=== PATIENT | female | born 1960 | race Hispanic/Latino ===

== ENCOUNTER 2023-10-22 09:12 | Emergency (ER) | payer OTHER, SELFPAY ==
[2023-10-22 09:31] VITALS: BP 136/63
--- NOTE | 2023-10-22 11:21 | ED.GENMED ---
History of Present Illness
General
Chief Complaint: Skin Problem
Time Seen by Provider: 10/22/23 10:45
Travel History
Have you had any contact with someone who has COVID-19?: No
Do you have any symptoms of coronavirus? Fever > 100 degrees, chills, cough, shortness of breath, sore throat, loss of taste or smell, muscle aches, or headache?: No
History of Present Illness
History of Present Illness:
63-year-old female with history of insulin-dependent diabetes presents to the emergency department for evaluation of redness pain and swelling associated with a lesion to the right frontal scalp. She does dye her hair recently and notes that the
symptoms began after dying her hair last week. Denies any fevers or chills. Denies any vision changes, neck pain, or posterior scalp pain. No ill contacts at home.
Past History
Past History
ED Past Medical History: Asthma, HTN, Hypercholesterolemia, IDDM, Psychiatric and Other (Cellulitis)
ED Past Surgical History: Orthopedic (right great toe amputation)
Social History
Tobacco: Non-smoker
Alcohol: None
Personal:
Living: with family
Review of Systems
Review of Systems
Allergies reviewed?: Yes
All Other Systems: ROS reviewed and negative except as documented in HPI and ROS
Phy Exam
Physical Exam
Physical Exam:
GEN: Well appearing, NAD, WDWN
HEENT: Oral mucosa moist, no scleral icterus
Cardiac: Regular rate
Lung: No respiratory distress, no tachypnea
MSK: No gross deformity or injuries
Skin: Good color, no pallor or jaundice. Grouped pustular lesions with honey colored crust to the right frontal scalp just within the hairline, no vesicular lesions
Neuro: AO x3, moves all extremities freely
Psych: Calm, cooperative
Course
Vital Signs
Initial and Last Documented VS:
Initial Vital Signs
Temp Pulse Resp BP Pulse Ox
98.3 F 84 16 136/63 100
10/22/23 09:31 10/22/23 09:31 10/22/23 09:31 10/22/23 09:31 10/22/23 09:31
Last Documented Vital Signs
Temp Pulse Resp BP Pulse Ox
98.3 F 84 16 136/63 100
10/22/23 09:31 10/22/23 09:31 10/22/23 09:31 10/22/23 09:31 10/22/23 09:31
MDM/Problems Addressed
MDM/Problems Addressed:
Likely a staph impetigo based on clinical exam. Do not suspect zoster given the localized symptoms without adjacent vesicular lesions
*Critical Care Note
Total Time (30-74mins, 75-104mins- exclusive of procedures): Not Applicable
ED Attending Note
-
Portions of this chart may have been created with voice recognition software.� Occasional wrong word or��sound alike� substitutions may have occurred due to the inherent limitations of voice recognition software.
Discharge Plan
Departure
Patient Disposition: Home (Routine Discharge)
Date of Disposition: 10/22/23
Time of Disposition: 11:22
Patient with high blood pressure during this ER visit?: No
Discharge Problem:
Impetigo, Cellulitis of scalp
Instructions: Cellulitis (Skin Infection), Adult (DC)
Prescriptions:
New
sulfamethoxazole-trimethoprim [Bactrim DS] 800-160 mg tablet
1 tab PO Q12H Qty: 14 0RF
mupirocin 2 % ointment
1 applic topical TID 7 Days Qty: 22 0RF
No Action
prednisone 5 MG tablet
5 mg PO BID Qty: 0 0RF
Jardiance 25 MG tablet
25 mg PO DAILY Qty: 0 0RF
gabapentin [Neurontin] 800 MG tablet
800 mg PO TID
gabapentin 400 MG capsule
400 mg PO TID
tizanidine 4 mg Tablet
4 mg PO HSPRN PRN (Reason: SPASMS)
lisinopril 20 mg Tablet
20 mg PO DAILY
insulin glargine [Lantus U-100 Insulin] 100 unit/mL solution
35 unit SC QPM
mupirocin 2 % ointment
1 applic topical BID
insulin aspart U-100 [Novolog FlexPen U-100 Insulin] 100 unit/mL (3 mL) insulin pen
16 unit SC AC
famotidine 20 MG tablet
20 mg PO BID
acetaminophen 325 mg Tablet
650 mg PO Q4HPRN PRN (Reason: mild pain/DOMINGO/temp> 100.4F) Qty: 0 0RF
amoxicillin-pot clavulanate 875-125 mg tablet
1 tab PO Q12H 7 Days Qty: 14 0RF
polyethylene glycol 3350 17 gram/dose powder
17 g PO DAILY Qty: 510 0RF
Referrals:
Keli Hernandez MD [Family Provider] -
Interventions
Interventions:
*Risk Screen - Suicide Last Done: 10/22/23 09:31
*General Assessment Last Done: 10/22/23 09:31
*Neglect/Abuse Screening Last Done: 10/22/23 09:31
*Nursing Disposition Last Done: 10/22/23 11:33
ED-Skin Assessment Last Done: 10/22/23 11:03
Discharge Date and Time
Discharge Date/Time: 10/22/23 11:36
== END 2023-10-22 11:36 | disposition home or self-care (01) ==
LOC: EMR 09:12
PROVIDERS: EMERGENCY PHYSICIAN Emergency Medicine; FAMILY PHYSICIAN Internal Medicine
DX: L01.00 Impetigo, unspecified (principal); L03.811 Cellulitis of head [any part, except face]; J45.909 Unspecified asthma, uncomplicated; I10 Essential (primary) hypertension; E11.9 Type 2 diabetes mellitus without complications; E78.00 Pure hypercholesterolemia, unspecified; Z79.4 Long term (current) use of insulin
CPT/HCPCS: 99282

== ENCOUNTER 2024-06-02 08:28 | Emergency (ER) | payer OTHER, SELFPAY ==
[2024-06-02] VITALS (7 sets, daily range): BP systolic 124–187; BP diastolic 55–79; BMI 26.0
[2024-06-02 09:04] LABS: Urine Albumin Negative (Neg - Trace); Urine Bilirubin Negative (Negative); Urine Character Clear (Clear); Urine Color Straw; Urine Glucose Negative (Negative); Urine Ketone Negative (Negative); Urine Leukocyte Negative (Negative); Urine Nitrite Negative (Negative); Urine Occult Blood Negative (Negative); Urine Urobilinogen Negative (Neg - 1+); Urine pH 6.5 (5.0-9.0)
--- NOTE | 2024-06-02 11:08 | ED.GENMED ---
History of Present Illness
General
Chief Complaint: Back Pain
Time Seen by Provider: 06/02/24 10:35
History of Present Illness
History of Present Illness:
Patient is a 63-year-old Yakut-speaking female with past medical history of hypertension, hyperlipidemia, anemia, type 2 diabetes mellitus, asthma, lupus, anxiety, and history of osteomyelitis of the right third toe status post partial amputation
in November 2022, here today for evaluation of approximately 3 to 4 weeks of atraumatic left-sided lower back pain. She also endorses pain along the left side of her lower abdomen and lateral side. Pain at times radiates proximally along the left
hip/thigh. She has been having difficulty with ambulation and her has been helping her. No falls or injuries. No numbness or tingling noted. No fevers. No vomiting. No central abdominal pain.
Past History
Past History
ED Past Medical History: Asthma, HTN, Hypercholesterolemia, IDDM, Psychiatric and Other (Cellulitis)
ED Past Surgical History: Orthopedic (right great toe amputation)
Social History
Tobacco: Non-smoker
Alcohol: None
Personal:
Living: with family
Review of Systems
Review of Systems
All Other Systems: ROS reviewed and negative except as documented in HPI and ROS
Phy Exam
Physical Exam
Physical Exam:
GENERAL: Alert , in no apparent distress
EYE: pupils equal and reactive
NECK: Supple, no significant adenopathy.
ENT: o/p clr, mmm.
CARDIAC: Regular rate and rhythm .
LUNGS: Clear breath sounds bilaterally, no acute respiratory distress, no wheezes/rales/rhonchi
ABDOMEN: Soft, there is mild tenderness to palpation along the left lower quadrant of the abdomen as well as the left lower side, no r/g, no cvat
NEUROLOGICAL: Alert and oriented, no focal neuro deficits
SKIN: Warm and dry, skin intact.
MUSCULOSKELETAL: No edema, well perfused. There is moderate tenderness to palpation along the anterior and lateral aspect of the left hip as well as tenderness along the left lower back, no rashes noted, no deformities, no swelling, no erythema or
overlying skin changes. There is slightly decreased range of motion of the left lower extremity without painful micromotion. Pulses 2+ throughout. Sensation intact throughout.
PSYCH: Normal and appropriate interaction.
Course
Orders/Labs/Results
Orders:
Orders
06/02/24 08:55
Urinalysis Reflex To Culture Urgent
Date Specimen was Collected: 06/02/24
Time Specimen was Collected: 08:44
06/02/24 11:12
CT Abd/pelvis W Iv Cont Urgent
Comment:
Reason For Exam: llq abd pain, side pain, back pain
0.9% Sodium Chloride 1000 ml [Nss] 1,000 ml IV BOLUS
Acetaminophen [Tylenol] 650 mg PO NOW STA
06/02/24 11:13
Lidocaine [Lidocaine 4% Patch] 1 patch TOPICAL DAILY ONE
Apply Lidocaine patch(s) to:: left lateral lower side/back
06/02/24 11:30
Complete Blood Count/With Diff Urgent
Comprehensive Metabolic Panel Urgent
06/02/24 13:28
Morphine Sulfate 4 mg IV NOW STA
06/02/24 13:51
Hip, Left 2-3 Views [CR Hip - LT w/wo Pel 2-3 Vw*] Urgent
Comment:
Reason For Exam: back/hip pain
Include a pelvis x-ray?: Yes
Lumbar Spine, 2 or 3 View [CR Lumbar Spine 2 Or 3 Views] Urgent
Comment:
Reason For Exam: back pain left side
06/02/24 14:19
Ondansetron Injectable [Zofran] 4 mg .ROUTE .STK-MED ONE
06/02/24 14:20
Ondansetron Injectable [Zofran] 4 mg IV NOW STA
Abnormal Lab Results
06/02/24
11:30
WBC 3.8 L 10^3/uL
(4.8-10.8)
Hgb 11.0 L g/dL
(12.0-16.0)
Hct 35.2 L %
(37.0-47.0)
MCH 25.4 L pg
(27.0-31.0)
MCHC 31.3 L g/dL
(33.0-37.0)
RDW 15.1 H %
(11.5-14.5)
MPV 11.6 H fL
(7.4-10.4)
BUN 20 H mg/dl
(7-17)
Creatinine 0.4 L mg/dL
(0.6-1.0)
Glucose 155 H mg/dl
(70-99)
06/02/24 11:30
06/02/24 11:30
Vital Signs
Initial and Last Documented VS:
Initial Vital Signs
Temp Pulse Resp BP Pulse Ox
98.3 F 82 16 168/55 98
06/02/24 08:36 06/02/24 08:36 06/02/24 08:36 06/02/24 08:36 06/02/24 08:36
Last Documented Vital Signs
Temp Pulse Resp BP Pulse Ox
98.3 F 76 16 159/68 100
06/02/24 08:36 06/02/24 11:36 06/02/24 08:36 06/02/24 14:00 06/02/24 14:00
MDM/Problems Addressed
Differential Diagnosis Includes:
Patient is a 63-year-old Yakut-speaking female with past medical history of hypertension, hyperlipidemia, anemia, type 2 diabetes mellitus, asthma, lupus, anxiety, and history of osteomyelitis of the right third toe status post partial amputation
in November 2022, here today for evaluation of approximately 3 to 4 weeks of atraumatic left-sided lower back pain. Overall, patient appears very well. Vitals remarkable for an elevated blood pressure. Physical examination described above. Will
begin with screening labs, urinalysis, and CT scan of the abdomen and pelvis with IV contrast. Will provide Tylenol and topical lidocaine patches.
06/02/2024 1627: Screening labs grossly within normal limits/consistent with the patient's baseline. There is mild leukopenia/anemia, elevated BUN, and an elevated glucose. Urinalysis negative. A CT scan of the abdomen and pelvis with IV contrast
was performed which reveals no CT evidence for any acute inflammatory process in the abdomen or pelvis. X-rays were obtained of the left hip lumbar spine which revealed no radiographic evidence for any acute osseous abnormality. Patient made aware
of findings. At this time, patient appears very comfortable and well. She is able to ambulate appropriately. Symptoms/findings may be secondary to a muscular etiology such as a lumbar strain. No emergent findings identified. Will recommend
Tylenol as patient reports she is not able to take ibuprofen secondary to this upsetting her stomach. Will add a muscle relaxer with cyclobenzaprine. Recommend supportive measures and close follow-up with orthopedics. Patient voiced understanding
of the above plan. She appears well and stable for discharge. All questions answered.
*certified court/medical interpreter #[id number] Chen used*
*Critical Care Note
Total Time (30-74mins, 75-104mins- exclusive of procedures): Not Applicable
ED Attending Note
-
Portions of this chart may have been created with voice recognition software.� Occasional wrong word or��sound alike� substitutions may have occurred due to the inherent limitations of voice recognition software.
Discharge Plan
Departure
Patient Disposition: Home (Routine Discharge)
Date of Disposition: 06/02/24
Time of Disposition: 16:14
Patient with high blood pressure during this ER visit?: Yes
Condition: Fair
Covid-19: Not Applicable
Discharge Problem:
Acute left-sided low back pain
Instructions: Low Back Pain (DC)
Prescriptions:
New
cyclobenzaprine 5 mg tablet
5 mg PO TID PRN (Reason: muscle spasm) 3 Days Qty: 9 0RF
Rx Instructions:
May cause drowsiness. No driving/operating machinery/drinking alcohol.
No Action
prednisone 5 MG tablet
5 mg PO BID Qty: 0 0RF
Jardiance 25 MG tablet
25 mg PO DAILY Qty: 0 0RF
gabapentin [Neurontin] 800 MG tablet
800 mg PO TID
gabapentin 400 MG capsule
400 mg PO TID
tizanidine 4 mg Tablet
4 mg PO HSPRN PRN (Reason: SPASMS)
lisinopril 20 mg Tablet
20 mg PO DAILY
insulin glargine [Lantus U-100 Insulin] 100 unit/mL solution
35 unit SC QPM
mupirocin 2 % ointment
1 applic topical BID
insulin aspart U-100 [Novolog FlexPen U-100 Insulin] 100 unit/mL (3 mL) insulin pen
16 unit SC AC
famotidine 20 MG tablet
20 mg PO BID
acetaminophen 325 mg Tablet
650 mg PO Q4HPRN PRN (Reason: mild pain/DOMINGO/temp> 100.4F) Qty: 0 0RF
amoxicillin-pot clavulanate 875-125 mg tablet
1 tab PO Q12H 7 Days Qty: 14 0RF
polyethylene glycol 3350 17 gram/dose powder
17 g PO DAILY Qty: 510 0RF
sulfamethoxazole-trimethoprim [Bactrim DS] 800-160 mg tablet
1 tab PO Q12H Qty: 14 0RF
mupirocin 2 % ointment
1 applic topical TID 7 Days Qty: 22 0RF
Referrals:
Keli Hernandez MD [Family Provider] - Follow up in 2-3 days
Markus Wang MD [Active] - Follow up in 10 days
Activity Restrictions/Additional Instructions:
You were seen today for evaluation of left-sided low back pain.
We obtained blood work which is grossly consistent with your baseline.
We obtained a CAT scan of your abdomen and pelvis as well as x-rays of your left hip and lower back which reveal no acute findings.
Rest. Avoid heavy lifting. Take [id number] Tylenol (acetaminophen) as directed as needed for pain. Take the muscle relaxer cyclobenzaprine as directed as needed. This may cause drowsiness. No driving or drinking alcohol with the
medication.
Follow-up with your doctor within the next 2 to 3 days for close reevaluation.
Return for any new, worsening, or concerning symptoms.
Lo atendieron hoy para patel evaluaci�n de dolor lumbar en el lado molly.
Obtuvimos an�lisis de judie que son muy consistentes con [place]inson l�matt de base.
Obtuvimos patel tomograf�a computarizada de tomlinson abdomen y pelvis, as� dia radiograf�as de tomlinson cadera izquierda y espalda baja que no revelan hallazgos agudos.
Descansar. Evite levantar objetos pesados. [place] Tylenol (acetaminof�n) de venta sravanthi seg�n las indicaciones, seg�n sea necesario para el dolor. [place] el relajante muscular ciclobenzaprina seg�n las indicaciones seg�n sea necesario. [place] puede
provocar somnolencia. No conducir ni beber alcohol con el medicamento.
Vira un seguimiento con tomlinson m�dico dentro de los pr�ximos 2 a 3 d�as para patel reevaluaci�n minuciosa.
Regrese ante cualquier s�ntoma nuevo, que empeore o que le preocupe.
Interventions
Interventions:
*Risk Screen - Suicide Last Done: 06/02/24 08:39
*General Assessment Last Done: 06/02/24 08:39
*Neglect/Abuse Screening Last Done: 06/02/24 08:39
ED- Fall Risk Assessment Last Done: 06/02/24 10:39
ED-Musculoskeletal Assessment Last Done: 06/02/24 10:39
Discharge Date and Time
Print Language: BELGIAN
[2024-06-02] MEDS: TYLENOL 650 MG PO (11:18)
[2024-06-02] MEDS: LIDOCAINE 4% PATCH 1 PATCH TOPICAL (11:19)
[2024-06-02] MEDS: NSS 1000 IV (11:31)
[2024-06-02 11:45] LABS: % Basophils 0.5 % (0-2); % Eosinophils 1.9 % (0-6); % Immature Granulocytes 0.3 % (0-0.5); % Lymphocytes 33.5 % (20.5-51.1); % Monocytes 6.4 % (1.7-9.3); % Neutrophils 57.4 % (42.2-75.2); Absolute Eosinophils 0.1 10^3/uL (0-0.7); Absolute Lymphocytes 1.3 10^3/uL (1.2-3.4); Absolute Monocytes 0.2 10^3/uL (0.1-0.6); Absolute Neutrophils 2.2 10^3/uL (1.4-6.5); Hematocrit 35.2 % (37.0-47.0); Mean Corp Hgb Conc. 31.3 g/dL (33.0-37.0); Mean Corpuscular Hgb 25.4 pg (27.0-31.0); Mean Corpuscular Volume 81.3 fL (81.0-99.0); Mean Platelet Volume 11.6 fL (7.4-10.4); Nucleated Red Blood Cells % 0 %; Platelet Count 212 10^3/uL (130-400); Red Blood Cell Count 4.33 10^6/uL (4.20-5.40); Red Cell Dist. Width 15.1 % (11.5-14.5); White Blood Cell Count 3.8 10^3/uL (4.8-10.8)
[2024-06-02 12:05] LABS: ALT (SGPT) 25 U/L (0-35); AST (SGOT) 28 U/L (14-36); Albumin 4.5 g/dl (3.5-5.0); Alkaline Phosphatase 75 U/L (38-126); Blood Urea Nitrogen 20 mg/dl (7-17); Calcium 9.5 mg/dl (8.4-10.2); Carbon Dioxide 27 mmol/L (22-30); Chloride 105 mmol/L (98-107); Estimated Creatinine Clearance 79 ml/min; Glucose 155 mg/dl (70-99); Sodium 145 mmol/L (135-145); Total Bilirubin 0.3 mg/dl (0.2-1.3); eGFR > 60.00
[2024-06-02] MEDS: MORPHINE SULFATE 4 MG IV (13:32)
[2024-06-02] MEDS: ZOFRAN 4 MG IV (14:21)
== END 2024-06-02 16:38 | disposition home or self-care (01) ==
LOC: EMR 08:28
PROVIDERS: Emergency Medicine; Physician Assistant; EMERGENCY PHYSICIAN Emergency Medicine; FAMILY PHYSICIAN Internal Medicine
DX: M54.50 Low back pain, unspecified (principal); I10 Essential (primary) hypertension; E78.00 Pure hypercholesterolemia, unspecified; E11.9 Type 2 diabetes mellitus without complications; D64.9 Anemia, unspecified; J45.909 Unspecified asthma, uncomplicated; M32.9 Systemic lupus erythematosus, unspecified; F41.9 Anxiety disorder, unspecified
CPT/HCPCS: 99284; 96374; 96375; 96361; 72100; 73502; 74177; 80053; 81003; 85025; Q9967

== ENCOUNTER → 2024-06-27 10:33 | Outpatient (REF) | payer OTHER, SELFPAY | LOC: DHVS 10:33 | PROVIDERS: ATTENDING PHYSICIAN Surgery Vascular Surgery; FAMILY PHYSICIAN Internal Medicine | DX: I73.9 Peripheral vascular disease, unspecified (principal) | CPT/HCPCS: 93922; 93925 ==

== ENCOUNTER 2024-08-20 12:58 | Inpatient (IN) | payer OTHER, SELFPAY ==
[2024-08-20] VITALS (12 sets, daily range): BP systolic 97–123; BP diastolic 40–68; BMI 26.7; BMI 28.0
[2024-08-20 09:02] LABS: % Basophils 0.3 % (0-2); % Eosinophils 0.1 % (0-6); % Immature Granulocytes 0.6 % (0-0.5); % Lymphocytes 19.8 % (20.5-51.1); % Monocytes 9.4 % (1.7-9.3); % Neutrophils 69.8 % (42.2-75.2); Absolute Lymphocytes 1.4 10^3/uL (1.2-3.4); Absolute Monocytes 0.7 10^3/uL (0.1-0.6); Hematocrit 34.3 % (37.0-47.0); Hemoglobin 10.8 g/dL (12.0-16.0); Mean Corp Hgb Conc. 31.5 g/dL (33.0-37.0); Mean Corpuscular Hgb 25.7 pg (27.0-31.0); Mean Corpuscular Volume 81.5 fL (81.0-99.0); Nucleated Red Blood Cells % 0 %; Platelet Count 194 10^3/uL (130-400); Red Blood Cell Count 4.21 10^6/uL (4.20-5.40); Red Cell Dist. Width 14.5 % (11.5-14.5); White Blood Cell Count 7.2 10^3/uL (4.8-10.8)
[2024-08-20 09:15] LABS: ALT (SGPT) 64 U/L (0-35); AST (SGOT) 78 U/L (14-36); Albumin 3.6 g/dl (3.5-5.0); Alkaline Phosphatase 79 U/L (38-126); Blood Urea Nitrogen 43 mg/dl (7-17); Calcium 8.2 mg/dl (8.4-10.2); Carbon Dioxide 24 mmol/L (22-30); Chloride 102 mmol/L (98-107); Glucose 213 mg/dl (70-99); Lipase 947 U/L (23-300); Sodium 136 mmol/L (135-145); Total Bilirubin 0.5 mg/dl (0.2-1.3); Total Protein 7.1 g/dl (6.3-8.2); eGFR > 60.00
--- NOTE | 2024-08-20 09:54 | ED.GENMED ---
History of Present Illness
General
Chief Complaint: Chest Pain
Source: patient and family
Exam Limitations: none
Time Seen by Provider: 08/20/24 09:26
History of Present Illness
History of Present Illness:
63-year-old female with a history of lupus and insulin-dependent diabetes, peripheral vascular disease, diabetic neuropathy, chronic steroid use and hypertension who presents with left-sided chest pain as well as epigastric and left-sided abdominal
pain. Symptoms have been ongoing for 4 days. She was hoping symptoms will get better but they have not. states that she has not eaten in several days. No fevers. Is nauseous. Did vomit 2 days ago but nothing today. The chest pain on
my evaluation is not there. She states she only has chest pain if she rolls to her left side. No fevers. No back pain. Pain in her abdomen is epigastric and left upper quadrant. She has not been taking her insulin because she has not been
eating. She is not a drinker. She smoked many years ago but only for like 2 years.
Past History
Past History
ED Past Medical History: Asthma, HTN, Hypercholesterolemia, IDDM, Psychiatric and Other (Cellulitis, diabetic neuropathy, peripheral vascular disease, lupus, chronic steroid use)
ED Past Surgical History: Orthopedic (right great toe amputation)
Social History
Tobacco: Non-smoker
Alcohol: None
Personal:
Living: with family
Phy Exam
Physical Exam
Physical Exam:
CONSTITUTIONAL Patient alert and oriented to person, place and time. Well-appearing. Vital signs reviewed.
HEAD atraumatic, normocephalic.
EYES eyelids normal to inspection, Extraocular muscles intact, Conjunctiva normal, Sclera normal.
NECK normal range of motion, Trachea midline, no jugular venous distention.
RESPIRATORY CHEST No respiratory distress noted, Chest expansion equal, Bilateral breath sounds clear.
CARDIOVASCULAR regular rate and rhythm, Heart sounds normal.
ABDOMEN moderate to severe epigastric and left upper quadrant tenderness
BACK normal inspection, no obvious deformities
UPPER EXTREMITY range of motion normal, Motor strength normal, no cyanosis, no edema.
LOWER EXTREMITY range of motion normal, Motor strength normal, no cyanosis, no edema.
NEURO Speech normal, No focal motor deficits, [place] coma scale 15, Memory normal, Cranial Nerves intact to screening exam.
SKIN skin warm, dry, and normal in color.
Scores
Heart Score for Chest Pain Patients
STEMI patient?: No
History: Slightly or Non-Suspicious
ECG: Nonspecific Repolarization
Age: >45 - <65 years
Risk Factors: 1 or 2 Risk Factors
Troponin: >/= 3 x Normal Limit
Heart Score for Chest Pain Patients: 5
Heart Score Risk: 20.3% MACE over next 6 weeks
Course
Orders/Labs/Results
Orders:
Orders
08/20/24 08:15
EKG [Electrocardiogram (*1)] Urgent
Reason for Study: Chest Pain
EKG- Treatment ONCE
08/20/24 08:49
Complete Blood Count/With Diff Urgent
Comprehensive Metabolic Panel Urgent
Erythrocyte Sed Rate Urgent
Comment: ADD ON
Lipase Urgent
Troponin I Urgent
08/20/24 09:43
Add On- LAB Urgent
Tests Added?: ESR, CRP
08/20/24 09:44
CT Chest/abd/pel W Iv Cont Urgent
Comment:
Reason For Exam: L CP, L and epigastric abd pain, lupus hx
08/20/24 Lunch
NPO
Allow oral meds: Yes
Allow clear liquids: No
08/20/24 11:01
Heparin 4,000 units IV NOW STA
Pharmacy Request to Place See Dose Instructions PO NOW STA
Discontinue all Active Warfarin orders?: Yes
Nursing to Place Non Medication Order As Directed
Physician Order: PTT 6 hours after initial start of Heparin infusion
Above order entered?: Yes
08/20/24 11:09
PTT Urgent
Comment: Obtain baseline before beginning heparin infusion if not already collected
08/20/24 11:15
Heparin 70577 Units/250 ml 25,000 units in 250 ml IV PER PROTOCOL
Weight to be used for heparin protocol in kilograms (kg):: 68.4
Protocol:: Cardiac Tx/Acute Coronary
PTT Goal Range to be used:: PTT 73 to 111 seconds
Order type:: Initial
INITIAL Infusion Dose (UNITS/KG/hr) & then follow protocol:: 12 units/kg/hr
Infusion Dose in UNITS/hr & then follow protocol (UNITS/hr):: 800
INFUSION RATE in mL/hr & then follow protocol (mL/hr):: 8
PTT less than or equal to 64 seconds:: Increase rate by 200 units/hr (+ 2 mL/hr)
PTT 64.1 to 72.9 seconds:: Increase rate by 100 units/hr (+ 1 mL/hr)
PTT 73 to 111 seconds:: Target Range. No change in rate.
PTT 111.1 to 130.9 seconds:: Decrease rate by 100 units/hr (- 1 mL/hr)
PTT 131 to 199.9 seconds:: HOLD for 1 hr. Then decrease rate by 200 units/hr (- 2 mL/hr)
PTT greater than or equal to 200 seconds:: HOLD for 2 hrs & Notify Provider. Then decrease by 200 units/hr (-
2 mL/hr)
Lab follow-up:: Each change, PTT q6h until 2 consecutive are therapeutic. Then PTT
daily.
08/20/24 11:44
C-Reactive Protein Urgent
Comment: ADD ON
08/20/24 12:[address] See Dose Instructions IV DIRECTED
08/20/24 12:41
Admit/Transfer Patient As Directed
Co-Sign Provider:
Level of Care: Inpatient admission
Assign to:: IVU
Physician / Group: hospitalist-Cristiane
Diagnosis: chest pain
Reason for Hospitalization: IV heparin, serial EKG, troponin, cards eval
Expected length of stay greater than two midnights?: Yes
ELOS- Estimated Length of Stay in days: 4
I certify the patient meets the requirements for IP care: Yes
PRN Pain Medication Management As Directed
May give lesser potent ordered pain med per pt: Yes
preference::
Protocol:: Medication orders for pain may be administered in a
manner that supports deferring to patient preference
when the pt is:
- Requesting an ordered lesser potent pain medication.
Least to most potent pain medications are defined
as: acetaminophen < NSAID < tramadol < opioids
(morphine, oxycodone, hydromorphone).
- Requesting a lesser dose of the same medication IF
ORDERED.
- Requesting a less intrusive route of administration
if both routes are prescribed by the provider (PO <
IV).
08/20/24 12:44
Code Status As Directed
Resuscitation Status: Full Code
08/20/24 14:03
Electrocardiogram (*1) Q3H
Reason for Study: Chest Pain
Comment: at admission and Q3H for total of 3, to be done with each troponin
Dextrose 50%-Water [Dextrose 50% Syringe] 12.5 grams IV [id number] PRN
Glucagon [GlucaGen] 1 mg IM PRN PRN
Pantoprazole [Protonix IV] 40 mg IV DAILY
08/20/24 14:03
Echo 2D MMode Color/Doppler Routine
Reason for Study: chest pain
CARDIOLOGY CONSULT Routine
Consulting Provider: Ilir Metzger
Was physician already notified: Yes
Heparin Protocol- PTT Orders As Directed
PTT per Heparin protocol: -Obtain CBC and baseline PTT - if not already collected.
-Obtain PTT 6 hours from start of infusion. Then, every 6 hours until 2 consecutive
PTT's are therapeutic. Then, PTT Daily.
-With each rate change, obtain PTT every 6 hours until 2 consecutive PTT's are
therapeutic. Then, PTT Daily.
Activity As Directed
Activity Level: As Tolerated
Bedside Glucose Monitoring As Directed
Frequency: AC&HS
Additional Instructions:: Change to q6h if pt on TPN, tube feeding or not eating
INT (Intravenous Needle Therapy) As Directed
Comment: maintain peripheral IV access
Intake/ Output As Directed
Frequency: Per unit guidelines
Notify MD As Directed
Notify physician if: PTT is greater than or equal to 200.
Vital Signs As Directed
Frequency: q4h
Weight As Directed
Frequency: Daily
Ot Eval And Treat Routine
Pt Eval And Treat Routine
Activity Level: As Tolerated
08/20/24 14:54
Glycohemoglobin (HgbA1c) Routine
08/20/24 16:00
Gabapentin [Neurontin] 400 mg PO TID
Gabapentin [Neurontin] 800 mg PO TID
08/20/24 16:14
PTT Routine
08/20/24 16:30
Insulin Aspart Corrective Low [Novolog Flexpen-Low Resistance] See Protocol SC AC
Insulin Aspart Pen [Novolog Flexpen] 16 units SC AC
08/20/24 17:03
Electrocardiogram (*1) Q3H
Reason for Study: Chest Pain
Comment: at admission and Q3H for total of 3, to be done with each troponin
08/20/24 18:00
insulin glargine [Lantus U-100 Insulin] 35 unit SC QPM
08/20/24 20:00
Prednisone [Deltasone] 5 mg PO BID
08/20/24 20:03
Electrocardiogram (*1) Q3H
Reason for Study: Chest Pain
Comment: at admission and Q3H for total of 3, to be done with each troponin
Troponin I Q3H
Comment: at admit & Q3H for 3 total including ED draws, obtain ECG with each level
08/20/24 23:03
Electrocardiogram (*1) Q3H
Reason for Study: Chest Pain
Comment: at admission and Q3H for total of 3, to be done with each troponin
08/21/24 06:00
Basic Metabolic Panel IN AM
Cardiovascular Evaluation IN AM
Complete Blood Count/No Diff IN AM
Comprehensive Metabolic Panel IN AM
Glycohemoglobin (HgbA1c) IN AM
08/21/24 08:00
Dapagliflozin [Farxiga] 10 mg PO DAILY
Lisinopril [Zestril] 20 mg PO DAILY
08/22/24 06:00
Complete Blood Count/No Diff Q2D
Comment: notify provider: Platelet count < 130,000 or decrease by 50% from baseline
08/24/24 06:00
Complete Blood Count/No Diff Q2D
Comment: notify provider: Platelet count < 130,000 or decrease by 50% from baseline
08/26/24 06:00
Complete Blood Count/No Diff Q2D
Comment: notify provider: Platelet count < 130,000 or decrease by 50% from baseline
08/28/24 06:00
Complete Blood Count/No Diff Q2D
Comment: notify provider: Platelet count < 130,000 or decrease by 50% from baseline
08/30/24 06:00
Complete Blood Count/No Diff Q2D
Comment: notify provider: Platelet count < 130,000 or decrease by 50% from baseline
09/01/24 06:00
Complete Blood Count/No Diff Q2D
Comment: notify provider: Platelet count < 130,000 or decrease by 50% from baseline
09/03/24 06:00
Complete Blood Count/No Diff Q2D
Comment: notify provider: Platelet count < 130,000 or decrease by 50% from baseline
09/05/24 06:00
Complete Blood Count/No Diff Q2D
Comment: notify provider: Platelet count < 130,000 or decrease by 50% from baseline
Abnormal Lab Results
08/20/24 08/20/24
08:49 11:44
Hgb 10.8 L g/dL
(12.0-16.0)
Hct 34.3 L %
(37.0-47.0)
MCH 25.7 L pg
(27.0-31.0)
MCHC 31.5 L g/dL
(33.0-37.0)
MPV 13.0 H fL
(7.4-10.4)
Absolute Monos (auto) 0.7 H 10^3/uL
(0.1-0.6)
Immature Gran % 0.6 H %
(0-0.5)
Lymphocytes % 19.8 L %
(20.5-51.1)
Monocytes % 9.4 H %
(1.7-9.3)
ESR 94 H mm/hour
(0-20)
BUN 43 H mg/dl
(7-17)
Glucose 213 H mg/dl
(70-99)
Calcium 8.2 L mg/dl
(8.4-10.2)
AST 78 H U/L
(14-36)
ALT 64 H U/L
(0-35)
Troponin I 16.400 H* ng/ml
C-Reactive Protein 143.80 H mg/L
(0.0-10.00)
Lipase 947 H U/L
(23-300)
08/20/24 08:49
08/20/24 08:49
Vital Signs
Initial and Last Documented VS:
Initial Vital Signs
Temp Pulse Resp BP Pulse Ox
98.4 F 86 18 114/57 98
08/20/24 08:30 08/20/24 08:30 08/20/24 08:30 08/20/24 08:30 08/20/24 08:30
Last Documented Vital Signs
Temp Pulse Resp BP Pulse Ox
99.7 F 94 16 111/58 97
08/20/24 15:07 08/20/24 16:15 08/20/24 14:55 08/20/24 14:55 08/20/24 14:55
MDM/Problems Addressed
Differential Diagnosis Includes:
Myocarditis, pericarditis, MD, pancreatitis, pneumothorax, pulmonary embolism, electrolyte imbalance, lupus exacerbation
MDM/Problems Addressed:
NSTEMI versus myocarditis, elevated troponin, abdominal pain, mild pancreatitis, hyperglycemia
*Radiology
Radiology exam reviewed: preliminary read by ED provider (No free air.)
*Pulse Oximetry
Patient hypoxic: no
*EKG
Interpreted by ED Provider?: Yes
Interpretation: abnormal
Rate: normal
Rhythm: sinus
[place]: left axis deviation
Interval: normal interval
Ischemia: non-specific ST changes
*Hospital Attendant Interpretation
Rate: normal
Interpretation: normal
Rhythm: sinus
*Critical Care Note
Total Time (30-74mins, 75-104mins- exclusive of procedures): 35 minutes
Data Reviewed
Review of Other/Old Records Reveals: Labs (Prior labs reviewed), Testing (EKG reviewed from June 2023) and Discharge Summary (Discharge summary reviewed from November 2022)
Source: patient and spouse
Further Testing Considered But Not Given:
Consider PE study but no hypoxia, no pleuritic pain, no tachypnea.
Patient Management
Discussion with other providers: Campaign Worker (Case discussed Dr. Metzger at 11:15 AM)
Escalation/DeEscalation of care consider admission/obs:
63-year-old female presents with pain in the left chest but only when laying on the left side. Interestingly on my examination while sitting in a normal position she has no pain. She does report upper abdominal pain as well. Lipase noted to be
mildly elevated. CT negative. Troponin markedly elevated. Question myocarditis versus ACS. For now we will heparinize. She has an allergy to aspirin. Case discussed with cardiology who will evaluate. Symptoms have been ongoing for about 4
days and remained stable. Likely will benefit from echocardiogram. She is on chronic prednisone and consider dose of steroids but will await medical evaluation by internal medicine
ED Attending Note
-
Portions of this chart may have been created with voice recognition software.� Occasional wrong word or��sound alike� substitutions may have occurred due to the inherent limitations of voice recognition software.
Discharge Plan
Departure
Patient Disposition: Admit
Date of Disposition: 08/20/24
Time of Disposition: 11:08
Admit to: Telemetry
Presentation/result/management discussed w/ accepting MD/DO: Hospitalist
Discharge Problem:
Acute non-ST elevation myocardial infarction (NSTEMI), Rule out myocarditis
Interventions
Interventions:
*Risk Screen - Suicide Last Done: 08/20/24 08:30
*General Assessment Last Done: 08/20/24 08:30
*Neglect/Abuse Screening Last Done: 08/20/24 09:35
*ED COVID-19 Vaccine History Last Done: 08/20/24 15:44
*Nursing Disposition Last Done: 08/20/24 14:29
ED- Cardiac Assessment Last Done: 08/20/24 09:35
Discharge Date and Time
Discharge Date/Time: 08/20/24 14:32
[2024-08-20 10:27] LABS: Erythrocyte Sed Rate 94 mm/hour (0-20)
[2024-08-20 11:28] LABS: APTT 29.4 Sec (23.4-35.0)
[2024-08-20] MEDS: HEPARIN 4000 UNITS IV (11:49)
[2024-08-20] MEDS: HEPARIN 25000 UNITS/250 ML IV (11:50)
--- NOTE | 2024-08-20 12:52 | HPS.HSE ---
Family Physician
-
Family Physician: Keli Hernandez
Chief Complaint
-
chest pain
History of Present Illness
Patient is a 63-year-old [place]-speaking female with a past medical history of type 2 diabetes mellitus insulin requiring, systemic lupus erythematosus, and essential hypertension who comes in complaining of chest pain, stomach pain, and headache
starting 4 days ago. She describes the chest pain as sharp, worse with lying on her left side, lying flat and moving forward do not exacerbate the pain and in fact relieve it. She denies any fevers or chills. She denies any jaw pain or left arm
pain. She describes the abdominal pain is burning. She is not short of breath but states that it is a sharp pain when she takes a deep breath then. She has associated nausea and is unclear about vomiting. She denies any constipation or diarrhea.
Her who accompanies her stated that she had a previous episode of this a few months ago and was given 'a medication 'and she was improved.
Of note, patient states that she had an infected toe on her right foot 3 weeks ago for which she was prescribed antibiotics. Both her and her do not know the name of the antibiotics. Her states that she is not yet finished with
that. She did see the cashier or checker stock clerk for this.
Workup in the emergency room finds her to have a troponin of 16 but an essentially unremarkable EKG. White blood cell count is normal. Both sedimentation rate and C-reactive protein are markedly elevated. Her lipase is also mildly elevated as
well.
Based on this information, patient will be admitted.
Medical History
Past Medical History
Past Medical History: Reports Other
Additional Past Medical History:
Type 2 diabetes mellitus insulin requiring
Systemic lupus erythematosus
Essential hypertension
Past Surgical History: Reports None
Social History
Tobacco: Former Smoker (Quit years ago)
Alcohol: None
Drug: None
Personal:
Living: With Family
Family History
Family History: Other (Mother of diabetes and heart related issues)
Allergies / Home Medications
Allergies reflects when Allergies were last updated in [facility].
Home Medications with original date entered in [facility]
Allergy/Medication List:
Not performed
I did review what medications I did have available with the patient's who confirmed some of the medications which I did order.
If medication reconciliation has not been performed, why?: Other (Language barrier)
Review of Systems
-
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
Constitutional: Denies Fever or Chills
EENT: Reports No Symptoms
Respiratory: Denies Trouble Breathing
Cardiac: Reports Chest Pain (Sharp in nature, worse with lying on the left side, hurts to take a deep breath then, no jaw or left arm pain)
Abdomen/GI: Reports Abdominal Pain (Burning in nature, hurts with lying on the left side) and Nausea; Denies Diarrhea or Constipated
: Reports No Symptoms
Musculoskeletal: Reports No Symptoms
Skin: Reports Other (Infected right second toe)
Neurological: Reports Headache
Endocrine: Reports No Symptoms
Hematologic/Lymphatic: Reports No Symptoms
Psych: Reports No Symptoms
Physical Exam
Vital Signs
Vital Signs
Temp Pulse Resp BP Pulse Ox
99.2 F 94 27 97/40 94
08/20/24 12:19 08/20/24 12:30 08/20/24 12:30 08/20/24 12:00 08/20/24 12:30
Physical Exam
General: Well Developed and Well Nourished; No Comfortable (Uncomfortable appearing)
HEENT: NormoCephalic and Anicteric; No Oxygen
Respiratory: Crackles (At bases bilaterally)
Cardiac: S1/S2 and Regular Rhythm; No Murmur or Rub
GI: Soft, Non Distended, Normal Bowel Sounds and Tender (To palpation left upper quadrant)
Musculoskeletal: No Clubbing, No Cyanosis, No Edema and Other (Right great toe amputated, right second toe with scabbed area appears to be pressure ulcer potentially no oozing noted no redness noted)
Skin: Other (No signs of blisters or rashes along left chest or upper abdomen)
Neuro: Awake and Alert
Psych: Calm
Laboratory Results
-
08/20/24 08:49
08/20/24 08:49
Laboratory Results
APTT 29.4 Sec (23.4-35.0) 08/20/24 11:09
Total Bilirubin 0.5 mg/dl (0.2-1.3) 08/20/24 08:49
AST 78 U/L (14-36) H 08/20/24 08:49
ALT 64 U/L (0-35) H 08/20/24 08:49
Alkaline Phosphatase 79 U/L (38-126) 08/20/24 08:49
Troponin I 16.400 ng/ml H* 08/20/24 08:49
Lipase 947 U/L (23-300) H 08/20/24 08:49
Impression/Plan
-
Patient is a 63-year-old female
Chest pain--multiple etiologies exist including ischemia (less likely although troponin is 16 but description is not typical), pericarditis/myocarditis (description of pain is typical but location is not, however sed rate and CRP are elevated),
endocarditis is also possible as patient has been on antibiotics for approximately 3 weeks due to an infected second toe for which she has seen the cashier or checker stock clerk for (however, white count normal, no fevers or chills, no other infectious signs),
pulmonary embolism also possible with right heart strain as cause of elevated troponin but no risk factors and not hypoxic (CT scan was done without contrast)--admit to IVU--trend troponin and EKG, consult cardiology--check echocardiogram--check
blood cultures--follow inflammatory markers--if patient becomes hypotensive, would start stress dose steroids--would repeat CT PE study tomorrow--continue IV heparin for now
Abdominal pain--describes as burning in nature so reflux certainly a possibility, despite mildly elevated lipase doubt acute pancreatitis--follow for now
Systemic lupus erythematosus --not followed by rheumatology--on prednisone 5 mg twice daily--May need rheumatology input--May need stress dose steroids
Type 2 diabetes mellitus--continue insulin with basal bolus dosing and sliding scale coverage, check hemoglobin A1c
Essential hypertension--continue lisinopril--patient states that she also takes metoprolol dose unknown 1 tablet at nighttime (?Toprol XL)--continue meds as able
DVT prophylaxis--already on IV heparin
CODE STATUS--full code
--- NOTE | 2024-08-20 14:36 | CON.CAR ---
Addendum entered and electronically signed by Ilir Metzger MD 08/20/24 15:23:
Note was prematurely signed off before impression and plan were added to the note. See immediately below for my impression and plan.
Impression:
Admitted for chest pain x 4 days
Acute abdominal pain
Acute headache
Troponin of 16
Elevated CRP
Type 2 diabetes
Peripheral vascular disease
Prior podiatric interventions
History of systemic lupus erythematosus
Essential hypertension
Recommendations:
Discussed with Dr. Sauer and I agree with her assessment that the troponin elevation could be multifactorial. May be related to myocarditis�pericarditis or even related to a systemic lupus flare
-Trend troponin
-Check echocardiogram
-Agree with CT scan of chest with IV contrast tomorrow
-I have no objection to heparinization for at least 48 hours
-Reasonable to consider ischemic evaluation during this hospitalization and given her advanced diabetes it would be reasonable to perform a left heart catheterization during this hospitalization
-Timing of left heart catheterization would be determined by the CT scan of chest and echocardiogram tomorrow and troponin trend
-Maintain telemetry
-We will follow with you. Discussed with primary team.
Original Note:
Consultation
Consultation Request
Date/Time Consultation Requested: 08/20/2024
Date/Time Consultation Performed: 08/20/2024
Requesting Provider: Hospitalist
Performing Provider: Domenica
Reason for Consultation: Chest pain for 4 days and positive troponin
Medical History
-
Chief Complaint: Chest pain for 4 days and positive troponin
History of Present Illness:
63-year-old female Gibraltarian-speaking who is a prior history of significant diabetic neuropathy, peripheral arterial disease, who presents with 4 days of chest pain and a troponin of 16. She also has multiple medical problems which are confounding.
My Gibraltarian is limited although we will have a reasonable conversation in Gibraltarian and her partner speaks some Kosovan.
Past medical history of type 2 diabetes mellitus insulin requiring, systemic lupus erythematosus, and essential hypertension who comes in complaining of chest pain, stomach pain, and headache starting 4 days ago. She describes the chest pain as
sharp, worse with lying on her left side and flat and better when sitting up. She has a markedly elevated C-reactive protein. Her troponins notable for 16. She denies any fevers or chills. She denies any jaw pain or left arm pain.
She has a history of diabetes and distal toe infection managed with vascular and podiatry.
Past Medical History
Past Medical History: HTN and NIDDM
Past Surgical History: Other (Prior vascular and podiatric surgery)
Social History
Tobacco: Former Smoker
Alcohol: None
Drug: None
Personal: Other
Living: With Family
Employment: Other
Family History
Family History: Reviewed & Not Pertinent
Allergies / Home Medications
Allergy/AdvReac Type Severity Reaction Status Date / Time
aspirin Allergy Hives Verified 08/20/24 08:34
�Medication �Instructions �Recorded �Confirmed �Type
empagliflozin 25 mg tablet 25 mg PO DAILY Diabetes ##0 05/03/20 08/20/24 Rx
(Jardiance)
gabapentin 400 mg capsule 400 mg PO TID take with 800mg 05/09/21 08/20/24 History
gabapentin 800 mg tablet 800 mg PO TID take with 400mg 05/09/21 08/20/24 History
(Neurontin)
insulin aspart U-100 100 unit/mL 35 unit SC AC Diabetes 11/27/22 08/20/24 History
(3 mL) subcutaneous pen (Novolog
FlexPen U-100 Insulin aspart)
insulin glargine 100 unit/mL 45 unit SC QPM Diabetes 11/27/22 08/20/24 History
subcutaneous solution (Lantus
U-100 Insulin)
lisinopril 20 mg tablet 20 mg PO DAILY Blood pressure 11/27/22 08/20/24 History
acetaminophen 325 mg tablet 650 mg (2 x 325 mg) PO Q4HPRN PRN 12/02/22 08/20/24 Rx
mild pain/DOMINGO/temp> 100.4F #0 tabs
levofloxacin 500 mg tablet 500 mg PO DAILY 08/20/24 08/20/24 History
metoprolol succinate 100 mg 100 mg PO DAILY 08/20/24 08/20/24 History
tablet,extended release 24 hr
Review of Systems
-
Unable to obtain full review of systems at this time due to: Language Barrier
All other systems: Negative unless noted
Cardiac: Chest Pain
Abdomen/GI: Abdominal Pain
Physical Exam
Vital Signs
Temp Pulse Resp BP Pulse Ox
99.2 F 83 26 113/48 94
08/20/24 12:19 08/20/24 14:15 08/20/24 14:15 08/20/24 14:00 08/20/24 13:15
Lab Results
08/20/24 08:49
08/20/24 08:49
Troponin I 16.400 ng/ml H* 08/20/24 08:49
Physical Exam
General: Well Developed, Well Nourished and No Apparent Distress
HEENT: Normocephalic and Anicteric
Respiratory: Clear
Cardiac: Regular Rhythm and Rub (No murmur or friction rub)
Breast: Deferred by me
GI: Soft, Non Tender and Non Distended
Rectal: Deferred by Provider
Musculoskeletal: No Clubbing and No Cyanosis
Skin: Warm, Dry and Rash
Neuro: Awake, Alert and Oriented
Hematologic/Lymphatic: No Lymphadenopathy
Psych: Calm
Impression / Plan
-
Patient is a 63-year-old Gibraltarian-speaking female with a past medical history of type 2 diabetes mellitus insulin requiring, systemic lupus erythematosus, and essential hypertension who comes in complaining of chest pain, stomach pain, and headache
starting 4 days ago. She describes the chest pain as sharp, worse with lying on her left side, lying flat and moving forward do not exacerbate the pain and in fact relieve it. She denies any fevers or chills. She denies any jaw pain or left arm
pain. She describes the abdominal pain is burning. She is not short of breath but states that it is a sharp pain when she takes a deep breath then. She has associated nausea and is unclear about vomiting. She denies any constipation or diarrhea.
Her who accompanies her stated that she had a previous episode of this a few months ago and was given 'a medication 'and she was improved.
Of note, patient states that she had an infected toe on her right foot 3 weeks ago for which she was prescribed antibiotics. Both her and her do not know the name of the antibiotics. Her states that she is not yet finished with
that. She did see the cork pressing machine operator for this.
Workup in the emergency room finds her to have a troponin of 16 but an essentially unremarkable EKG. White blood cell count is normal. Both sedimentation rate and C-reactive protein are markedly elevated. Her lipase is also mildly elevated as
well.
Based on this information, patient will be admitted.
Data Reviewed
-
EKG: Tracing Personally Visualized and interpreted
Radiology: Image Personally Visualized and interpreted
CT Scan: Report Reviewed by me
Medical Tests (Nuc Med, Echo etc): Image Personally Visualized and interpreted
Labs: Labs Reviewed by me and Discussed with Physician
Old Records: Reviewed
[2024-08-20 14:54] LABS: Glucose - Point of Care 172 mg/dl (70-99)
[2024-08-20] MEDS: NEURONTIN 400 MG PO ×4 (16:04→21:20)
[2024-08-20] MEDS: PROTONIX IV 40 MG IV (16:05)
[2024-08-20] MEDS: NEURONTIN 800 MG PO ×2 (16:08→21:20)
[2024-08-20 16:53] LABS: APTT 23.8 Sec (23.4-35.0)
[2024-08-20 17:02] LABS: Glucose - Point of Care 159 mg/dl (70-99)
[2024-08-20] MEDS: NOVOLOG FLEXPEN SC (17:12)
[2024-08-20] MEDS: NOVOLOG FLEXPEN-LOW RESISTANCE SC (17:18)
[2024-08-20] MEDS: LANTUS 0.35 UNITS SC (18:22)
--- NOTE | 2024-08-20 20:00 | PTCARENOTE ---
Addendum entered by Leeann Orr RN 08/21/24 03:28:
R 2nd toe scabbed from healing wound, await [facility] c/s.
Original Note:
Assumed care of the patient at 1900. Patient's son at bedside. Patient AOx3, Angolan speaking. No c/o pain. SR on the monitor rates 80-90's. No edema, pedal pulses weak on palpation. Lungs clear on RA. Patient reports poor appetite over the last few
days. Asked for snack but did not want any offered options. Abdomen SNT, normoactive BS. Voiding in the restroom without difficulty. Heparin gtt continued per protocol. PIV#20 x1 in RAC. Refused Prednisone. Patient updated on POC, in agreement,
assessment of needs ongoing.
[2024-08-20] MEDS: DELTASONE PO (21:19)
[2024-08-20 21:27] LABS: Glucose - Point of Care 162 mg/dl (70-99)
[2024-08-20 23:44] LABS: APTT 44.5 Sec (23.4-35.0)
[2024-08-21] VITALS (31 sets, daily range): BP systolic 79–133; BP diastolic 33–77; PULSE 72; O2SAT 98; BMI 27.8
--- NOTE | 2024-08-21 00:15 | PTCARENOTE ---
No acute issues. Patient a difficult stick for lab work, causing delays in collection. Spouse updated via phone. Heparin gtt adjusted per protocol. Patient sleeping between care.
--- NOTE | 2024-08-21 05:18 | PTCARENOTE ---
Patient febrile, notified CVNP - no Tylenol PRN at this time. Patient denies feeling unwell. Assessment of needs ongoing, VSS
[2024-08-21] MEDS: TYLENOL 650 MG PO (06:04)
[2024-08-21 06:14] LABS: Hematocrit 35.2 % (37.0-47.0); Hemoglobin 11.3 g/dL (12.0-16.0); Mean Corp Hgb Conc. 32.1 g/dL (33.0-37.0); Mean Corpuscular Hgb 26.4 pg (27.0-31.0); Mean Corpuscular Volume 82.2 fL (81.0-99.0); Platelet Count 184 10^3/uL (130-400); Red Blood Cell Count 4.28 10^6/uL (4.20-5.40); Red Cell Dist. Width 14.2 % (11.5-14.5); White Blood Cell Count 7.1 10^3/uL (4.8-10.8)
[2024-08-21 06:19] LABS: APTT 54.8 Sec (23.4-35.0)
[2024-08-21 06:35] LABS: ALT (SGPT) 73 U/L (0-35); AST (SGOT) 73 U/L (14-36); Albumin 3.7 g/dl (3.5-5.0); Alkaline Phosphatase 84 U/L (38-126); Blood Urea Nitrogen 40 mg/dl (7-17); Calcium 8.3 mg/dl (8.4-10.2); Carbon Dioxide 22 mmol/L (22-30); Chloride 104 mmol/L (98-107); Estimated Creatinine Clearance 54 ml/min; Glucose 103 mg/dl (70-99); HDL Cholesterol 42 mg/dl; LDL Cholesterol, Calculated 105 mg/dl; Potassium 3.8 mmol/L (3.5-5.1); Sodium 138 mmol/L (135-145); Total Bilirubin 0.6 mg/dl (0.2-1.3); Total Cholesterol 173 mg/dl (50-199); Total Protein 7.3 g/dl (6.3-8.2); Triglyceride 132 mg/dl (10-149); Very Low Density Lipoprotein 26 mg/dl (0-30); eGFR > 60.00
[2024-08-21 07:54] LABS: Glucose - Point of Care 110 mg/dl (70-99)
[2024-08-21 09:11] LABS: Glycohemoglobin (HgbA1c) 7.6 % (4.0-5.6)
[2024-08-21] MEDS: NOVOLOG FLEXPEN 16 UNITS SC ×2 (09:50→17:07)
[2024-08-21] MEDS: NOVOLOG FLEXPEN-LOW RESISTANCE SC ×3 (09:50→17:08)
--- NOTE | 2024-08-21 09:55 | WOUNDNOTE ---
R 2ND TOE TIP
--- NOTE | 2024-08-21 09:56 | WOUNDNOTE ---
[facility] RN note: Patient admitted with chest pain. She lives with her who is present who interprets for her. She follows plowing gardens Dr. Hamilton and vascular Dr. Harris. does her wound care at home.
See H&P for complete history.
PMH: DM, Lupus erythematous, HTN, infected R foot, follows podiatry, former smoker, R great toe amp, R 2nd toe ulcer. R partial 3rd toe amp 12/03/[address] Palafox.
Wound Location and type/assessment: Patient admitted with: Slowly healing R 2nd toe tip, dry pink deep dermal vs healing full thickness with dry callus. No purulence. No erythema. Skin dry in areas on feet and heels. Dull red sacrum from no
ambulating for about 6 days. Patient wears/has open toe slip on sandals. stated she also has a flat surgical shoe at home. Last arterial Doppler 06/27/24 R LINDA 1.09, R toe .67; L LINDA .92, L toe .12, small vessel disease. Patient last saw
Steven 07/28/24 and plan is follow up in 4 weeks.
Appetite: poor.
Pressure redistribution devices in place: Centrella Max air bed. She can turn self in bed and lift heels off bed.
Plan: stated current wound care is clean ulcer and apply dry gauze dressing daily. Dressing applied R 2nd toe. Heels off bed with pillow. Protective silicone border foam applied to sacrum. Instructed frequent turning and heel elevation to
prevent pressure injury. t/c SPD and ordered air chair cushion.
Will confirm orders with Dr. Sauer and discussed with IZAIAH Serrano
Updated care plan, will sign off. Call if needed. Patient to follow up with her plowing gardens and vascular surgeon.
[2024-08-21] MEDS: FARXIGA 10 MG PO (10:04)
[2024-08-21] MEDS: NEURONTIN 800 MG PO ×3 (10:06→20:45)
[2024-08-21] MEDS: NEURONTIN 400 MG PO ×3 (10:06→20:44)
[2024-08-21] MEDS: ZESTRIL PO (10:07)
[2024-08-21] MEDS: DELTASONE 5 MG PO ×2 (10:07→20:42)
[2024-08-21] MEDS: PROTONIX IV 40 MG IV (10:08)
[2024-08-21] MEDS: NSS (PRESERVATIVE FREE) 10 ML IV (10:12)
--- NOTE | 2024-08-21 10:23 | WOUNDNOTE ---
[facility] RN note: Patient admitted with chest pain. She lives with her who is present who interprets for her. She follows deburring technician Dr. Hamilton and vascular Dr. Harris. does her wound care at home.
See H&P for complete history.
PMH: DM, Lupus erythematous, HTN, infected R foot, follows podiatry, former smoker, R great toe amp, R 2nd toe ulcer. R partial 3rd toe amp 12/03/[address] Palafox.
Wound Location and type/assessment: Patient admitted with: Slowly healing R 2nd toe tip, dry pink deep dermal vs healing full thickness with dry callus. No purulence. No erythema. Skin dry in areas on feet and heels. Dull red sacrum from no
ambulating for about 6 days. Patient wears/has open toe slip on sandals. stated she also has a flat surgical shoe at home. Last arterial Doppler 06/27/24 R LINDA 1.09, R toe .67; L LINDA .92, L toe .12, small vessel disease. Pedal pulses heard
faintly via portable Doppler. Toes warm. Hair noted on feet. Patient last saw Dr. Harris 07/28/24 and plan is follow up in 4 weeks.
Appetite: poor.
Pressure redistribution devices in place: Centrella Max air bed. She can turn self in bed and lift heels off bed.
Plan: stated current wound care is clean ulcer and apply dry gauze dressing daily. Dressing applied R 2nd toe. Heels off bed with pillow. Protective silicone border foam applied to sacrum. Instructed frequent turning and heel elevation to
prevent pressure injury. t/c SPD and ordered air chair cushion. Updated Dr. Sauer including patient is on oral Levaquin 500mg daily at home as per pharmacist Dawson at [facility]. Dawson stated Dr. Hamilton ordered it again on 08/11/24 for 28
more days. Confirm orders with Dr. Sauer. Discussed with IZAIAH Serrano
Updated care plan, will sign off. Call if needed. Patient to follow up with her deburring technician and vascular surgeon.
--- NOTE | 2024-08-21 10:52 | W.PN.CARDCBS ---
Addendum entered and electronically signed by Roderick Dixon MD 08/21/24 12:48:
I saw and examined the patient.
The STOCK CHASER or PA's note was reviewed and I agree with the note.
Comment: General: Well developed, well nourished in NAD.
Neck: Supple, no JVD, HJR, carotids +2 B/L, no bruits bilaterally.
Heart: Non displaced PMI, RRR, no murmurs, No S3, S4, no rubs.
Lungs: Clear to auscultation bilaterally, no wheeze, rhonchi, rubs bilaterally,
normal expiratory phase.
Extremities: No clubbing, cyanosis or edema bilaterally.
Neuro: Grossly nonfocal, awake, alert and oriented x3.
No further chest pain. Await echocardiogram. However given significant elevated troponin will need to do cath exclude CAD. She has an allergy to aspirin and will need to be evaluated further before catheterization is done. Will discuss with
allergy. d/w pt and at bedside
Original Note:
Today's Communication / Plan
-
Continue IV heparin
Check echo
Discuss antiplatelet w/ allergy
Start crestor
Follow temp
Plan for LHC in AM
Impression / Plan
-
PCP: Dr. Hernandez
Grain Sacker: None prior to arrival
Impression:
Admitted with chest pain.
Abdominal pain
Headache
Elevated troponin
Elevated CRP
Type 2 diabetes
Peripheral vascular disease
Prior podiatric interventions
History of systemic lupus erythematosus
Essential hypertension
Echo 08/21/2024: Study pending
Plan:
-Presented with chest pain, abdominal pain, and headache that had been ongoing for 4 days.
-Troponin elevated on arrival, peaking at 17.2. May be related to myocarditis-pericarditis w/ elevated inflammatory markers, however with chest pain and h/o advanced DM2, will plan for LHC in AM 08/22.
-Check echo today, 08/21.
-CT of chest 08/21 negative for PE. Did note coronary calcifications.
-Continue IV heparin.
-Has h/o allergy/hives to aspirin. Discussed w/ interventional cardiology who is reaching out to irrigation system operator Recreational Therapy Technician.
-Has been intermittently hypotensive today, follow BP. As OP on lisinopril and Toprol. Currently Toprol on hold. May need to reduce lisinopril.
-Continue DM management per primary service. Hgb A1c 7.6%
-LDL 105. Elevated LFTs noted 08/21. Will start crestor 20mg daily and follow LFTs.
-Continues on prednisone for h/o SLE.
-Febrile early in AM 08/21 w/ TMax 101. Temp improved w/ Tylenol. WBC WNL. Blood cultures pending. Defer further workup to primary service.
-NPO after midnight w/ tentative plan for LHC in AM.
Progress Note - Grain Sacker
Subjective
Date of Service: August 21, 2024
Objective
Labs:
08/21/24 05:57
08/21/24 05:57
Labs
Hgb 11.3 g/dL (12.0-16.0) L 08/21/24 05:57
Hct 35.2 % (37.0-47.0) L 08/21/24 05:57
Plt Count 184 10^3/uL (130-400) 08/21/24 05:57
APTT 54.8 Sec (23.4-35.0) H 08/21/24 05:57
Sodium 138 mmol/L (135-145) 08/21/24 05:57
Potassium 3.8 mmol/L (3.5-5.1) 08/21/24 05:57
BUN 40 mg/dl (7-17) H 08/21/24 05:57
Creatinine 0.9 mg/dL (0.6-1.0) 08/21/24 05:57
Glucose 103 mg/dl (70-99) H 08/21/24 05:57
Troponins
08/20/24 08/20/24 08/20/24
08:49 14:54 15:32
Troponin I 16.400 H* Cancelled Cancelled
08/20/24 08/20/24
16:14 20:52
Troponin I 17.300 H* 17.200 H*
Vital Signs and I&O:
Vital Signs
Temp Pulse Resp BP Pulse Ox
99.8 F 76 18 92/49 95
08/21/24 07:35 08/21/24 10:07 08/21/24 07:35 08/21/24 10:07 08/21/24 07:35
Vital Signs
Temp Pulse Resp BP Pulse Ox
99.8 F 76 18 92/49 95
08/21/24 07:35 08/21/24 10:07 08/21/24 07:35 08/21/24 10:07 08/21/24 07:35
Intake & Output
08/19/24 08/20/24 08/21/24 08/22/24
06:59 06:59 06:59 06:59
Intake Total 240 / 240
Balance 240 / 240
Physical Exam
Physical Exam
GEN: No distress, awake, alert, oriented x3
HEENT: supple, anicteric, mmm
LUNGS: No audible wheeze
CV: Reg, S1/S2, no murmur
EXT: No clubbing, cyanosis, or edema
NEURO: Gross non-focal
SKIN: Warm, dry, no rash
[2024-08-21] MEDS: NSS 500 IV ×2 (11:18→18:52)
[2024-08-21] MEDS: HEPARIN 25000 UNITS/250 ML IV (11:33)
--- NOTE | 2024-08-21 12:05 | CARDSERVLU ---
Echocardiogram with Lumason completed after protocol screening completed. Allergies verified.
Patent IV site: __R AC___
IV site flushed with 0.9% NaCl pre and post administration.
Diluted bolus method utilized to enhance visualization of ventricular bull.
Total volume given: __2.5__ mL
Patient tolerated all procedures well without complications.
--- NOTE | 2024-08-21 12:29 | PTCARENOTE ---
Discussed all nursing measures w/ pt and pt's . Pt's translated all nursing measures w/ pt. The language line is in the pt's room, if needed. Will monitor.
--- NOTE | 2024-08-21 13:28 | CM ---
Reviewed chart. Met with and Mrs. Leon and her daughter to review discharge plans. Spouse states prior to admission she resides with him on a one stroy home with four steps to enter. He states prior to admission she was independent with
ambulation and adls. He states she has a walker and single point cane at home. She thinks she has a prescription plan and uses [facility]. We reviewed [facility] and she is agreeable to [facility]. Telephone call to [facility] to make the referral. Sent the referral. Medical work-up in progress. The discharge plan is to return oneyda with her spouse and [facility] when medically stable.
[2024-08-21 13:34] LABS: Glucose - Point of Care 71 mg/dl (70-99)
[2024-08-21] MEDS: NOVOLOG FLEXPEN SC (13:35)
--- NOTE | 2024-08-21 16:12 | W.PN.HOSP.TC ---
Addendum entered and electronically signed by Tiffanie Sauer MD 08/21/24 20:14:
I saw and evaluated the patient independently. I reviewed the resident�s note and agree with findings and plan as documented by Dr. Farmer.
GENERAL: well developed, well nourished, female in no apparent distress--[place] SPEAKING ONLY
HEENT: NC/AT
HEART: regular rate and rhythm, +S1, +S2
LUNGS : clear to auscultation bilaterally
ABDOM: soft, nontender, nondistended, + bowel sounds
EXT: no cyanosis, clubbing, or edema
NEUROLOGIC: grossly intact
Chest pain--pulm embolism ruled out with neg chest CT-- ischemia most likely although atypical pain but still possible-- pericarditis/myocarditis still possible-- endocarditis less likely, blood cultures negative possible --troponin 16-17, EKG
without acute changes--ECHO with EF 15-20%--follow inflammatory markers although may be elevated from lupus and not related to chest pain--if patient becomes hypotensive, would start stress dose steroids---continue IV heparin for now--apprec
cardiology
Abdominal pain--describes as burning in nature so reflux certainly a possibility, despite mildly elevated lipase doubt acute pancreatitis--follow for now
Systemic lupus erythematosus --not followed by rheumatology--on prednisone 5 mg twice daily--May need rheumatology input--May need stress dose steroids
Type 2 diabetes mellitus--continue insulin with basal bolus dosing and sliding scale coverage, check hemoglobin A1c
Essential hypertension--continue lisinopril--patient states that she also takes metoprolol dose unknown 1 tablet at nighttime (?Toprol XL)--continue meds as able
anxiety--son says she is seen by Ashwini, will need to call to get medications and doses
DVT prophylaxis--already on IV heparin
CODE STATUS--full code
Original Note:
Today's Communication/Plan
-
.
Assessment / Plan
Assessment / Plan
1. Nonspecific Chest Pain (Ischemic vs. Pericarditis vs. Endocarditis vs. Pulmonary Embolus)
- Presented with Left sided CP and ab pain that was pleuritic and worse with laying on right side. Resolved this morning.
- ESR and CRP markedly elevated on admission. Description of the pain is typical, but the location is not.
- CT of the chest repeated this morning, with IV contrast: No evidence of pulmonary embolism.
- Endocarditis is possible given the patient has been on antibiotics for approximately 3 weeks due to an infected second toe. Follow-up echo.
- Troponin 16 on admission; EKG was not observed of ischemia, however CAD cannot be ruled out. Consider left heart cath. Patient to be desensitized to ASA.
2. Abdominal Pain (resolved)
- Elevated lipase (mild); doubt pancreatitis given presentation.
- Continue to monitor.
3. Systemic Lupus Erythematosus
- Medications prescribed by PCP: prednisone 5mg BID.
- Patient may require stress dose steroids
- Consider rheumatology work up if other etiologies are ruled out
4. Type 2 DM
- Continue basal bolus insulin with Adama ALLEN
5. Essential HTN
- Continue Lisinopril
6. Diabetic Foot Infection
- Continue outpatient course of Levofloxacin 500 mg BID
Anticipated Discharge: > 48 hours
Subjective/Interval History
-
Date of Service: August 21, 2024
Patient seen and examined while resting comfortably in bed. is at bedside. Patient states that she feels improved this morning. Specifically the patient denies chest pain, shortness of breath, palpitations, abdominal pain, nausea,
vomiting. Patient states that she had a little bit of food following her CT scan this morning, and she tolerated this well.
Objective Data
-
Labs:
Laboratory Results
08/21/24 08/21/24
05:57 13:00
WBC 7.1
Hgb 11.3 L
Hct 35.2 L
Plt Count 184
APTT 54.8 H Pending
Sodium 138
Potassium 3.8
Chloride 104
Carbon Dioxide 22
BUN 40 H
Creatinine 0.9
Glucose 103 H
Calcium 8.3 L
Total Bilirubin 0.6
AST 73 H
ALT 73 H
Alkaline Phosphatase 84
Vital Signs:
Vital Signs
Temp Pulse Resp BP Pulse Ox
98.1 F 73 18 79/51 98
08/21/24 14:50 08/21/24 12:00 08/21/24 14:50 08/21/24 11:15 08/21/24 14:50
I&O
08/20/24 08/21/24 08/22/24
06:59 06:59 06:59
Intake Total 240 / 240 360 / 360
Balance 240 / 240 360 / 360
Review of Systems
-
History Source: Patient and Family
Constitutional: Reports No Symptoms
Respiratory: Reports No Symptoms
Cardiac: Reports No Symptoms
Abdomen/GI: Reports No Symptoms
Physical Exam
-
General: Well Developed and Well Nourished
HEENT: Normocephalic and Atraumatic
Respiratory: Clear to Auscultation
Cardiac: Regular Rhythm and S1/S2
GI: Soft, Nontender and Nondistended
Musculoskeletal: No Clubbing, No Cyanosis and No Edema
Skin: Warm
Neuro: Awake and Alert
Psych: Calm
Data Reviewed
-
CT Scan: Report Reviewed by me and Discussed with Patient
Labs: Labs Reviewed by me and Discussed with Patient
[2024-08-21 16:54] LABS: Glucose - Point of Care 109 mg/dl (70-99)
--- NOTE | 2024-08-21 17:30 | PTCARENOTE ---
Pt to begin ASA desensitization. Pt care assumed by IZAIAH Mcclellan
[2024-08-21] MEDS: ASPIRIN FOR DESENSITIZATION 5 MG PO (17:40)
--- NOTE | 2024-08-21 17:40 | PTCARENOTE ---
asa desensitization (5mg) started @ 1740. vital signs prior to admin stable. nursing 1:[address]
[2024-08-21] MEDS: ASPIRIN FOR DESENSITIZATION 10 MG PO (18:10)
[2024-08-21] MEDS: BENADRYL 50 MG IV (18:16)
--- NOTE | 2024-08-21 18:43 | PTCARENOTE ---
Addendum entered by Artem Horne RN 08/21/24 18:55:
Dr. Sauer verbalized to stop aspirin desensitization.
Original Note:
mild allergic reaction noted 30 minutes into administration of 5mg of asa. swelling noted to eyes. 50mg Benadryl given per protocol. Md made aware and Dr. Sauer at bedside. pt began to have uncontrolled left hand tremors. md remained at bedside
and 0.5mg Ativan given. pt at baseline orientation. vss.
[2024-08-21 18:46] LABS: Glucose - Point of Care 112 mg/dl (70-99)
[2024-08-21] MEDS: ATIVAN 0.5 MG IV (18:53)
[2024-08-21] MEDS: NSS (PRESERVATIVE FREE) 0.25 ML IV (18:58)
--- NOTE | 2024-08-21 19:03 | W.PN.UPDATE ---
Update Note
Progress Note Update
Called to bedside to see patient for puffy eyes and reaction to the asa desensitization. Gave benadryl (as per protocol), then had reaction to that (almost looked like tardive dyskinesia), so gave STAT ativan 0.5mg IV x 1. I instructed nursing to
STOP the protocol and notified cardiology. IF this is still to be done, would do in the ICU during the DAY and not on evening/shift superintendent.
Son, Nicholas, at bedside and is very upset that we were even doing the procedure. Nursing explained to him that her and daughter David gave consent for the desensitization. Explained to son the 4 possibilities of her chest pain (PE-ruled
out, pericarditis, endocarditis, ischemia) and explained her 15-20% EF to him and why they wanted to do the cath (and eventual asa desensitization in case stent needed to be placed). All questions answered.
[2024-08-21] MEDS: CRESTOR PO (19:31)
--- NOTE | 2024-08-21 19:55 | PTCARENOTE ---
ASA desensitization stopped. Pt's son in room to interpret. Pt c/o itchy, puffy eyes. Pt appeared to be having a panic attack, per pt's son. Benedryl and ativan given. MD at bedside. Orders noted.
--- NOTE | 2024-08-21 20:07 | PTCARENOTE ---
It is noted that pt only received 5 mg of ASA prior to reaction. ASA 10 mg scanned but not administered. Remaining doses sent back to pharmacy.
[2024-08-21 20:37] LABS: Glucose - Point of Care 71 mg/dl (70-99)
[2024-08-21] MEDS: LANTUS SC (20:41)
[2024-08-21 22:23] LABS: Glucose - Point of Care 91 mg/dl (70-99)
--- NOTE | 2024-08-21 22:39 | PTCARENOTE ---
Pt. received at change of shift. Per report, pt. started on aspirin desensitization protocol, however at change of shift, decision made by to discontinue aspirin desensitization due to patient adverse reaction to first aspirin dose. I received
the patient post discontinuation of aspirin desensitization. Pt. kinyarwanda speaking, AOx3, tele reading NSR. VS WNL. Heparin gtt running at 1600u/hr next PTT at 2330. No complaints of pain at this time. Pt. stating she feels 'better'. Pt. still weak,
difficulty getting to bedside commode, needs assistance of 2 people. Fall risk precautions in place. Call dobson within reach. Continuing to monitor at this time.
[2024-08-21 23:36] LABS: APTT 77.3 Sec (23.4-35.0)
[2024-08-22] VITALS (18 sets, daily range): BP systolic 97–147; BP diastolic 54–68; BMI 28.5
[2024-08-22] MEDS: NSS 500 IV ×2 (01:09→06:15)
[2024-08-22] MEDS: HEPARIN 25000 UNITS/250 ML IV (04:25)
[2024-08-22 04:55] LABS: Hematocrit 29.3 % (37.0-47.0); Hemoglobin 9.3 g/dL (12.0-16.0); Mean Corp Hgb Conc. 31.7 g/dL (33.0-37.0); Mean Corpuscular Hgb 25.9 pg (27.0-31.0); Mean Corpuscular Volume 81.6 fL (81.0-99.0); Mean Platelet Volume 12.5 fL (7.4-10.4); Platelet Count 190 10^3/uL (130-400); Red Blood Cell Count 3.59 10^6/uL (4.20-5.40); Red Cell Dist. Width 14.1 % (11.5-14.5); White Blood Cell Count 5.9 10^3/uL (4.8-10.8)
[2024-08-22 05:19] LABS: APTT 71.1 Sec (23.4-35.0)
[2024-08-22 05:21] LABS: Blood Urea Nitrogen 24 mg/dl (7-17); Calcium 7.6 mg/dl (8.4-10.2); Carbon Dioxide 21 mmol/L (22-30); Chloride 108 mmol/L (98-107); Estimated Creatinine Clearance 82 ml/min; Glucose 139 mg/dl (70-99); Potassium 4.1 mmol/L (3.5-5.1); Sodium 138 mmol/L (135-145); eGFR > 60.00
[2024-08-22 07:22] LABS: Glucose - Point of Care 161 mg/dl (70-99)
--- NOTE | 2024-08-22 08:00 | PTCARENOTE ---
Assumed care of pt at change of shift. NSR on tele with HR 80s. Pt AAOx3 and Tongan speaking, language line at bedside for assistance communicating with pt. Heparin gtt currently infusing at 1700units/hr and NS infusing at 75ml/hr. No complaints
of pain at this time. Ambulating with x1 assist and rolling walker to bathroom. Plan of care discussed with pt and family. NPO for section laborer today. Call dobson within reach.
--- NOTE | 2024-08-22 08:54 | W.PN.UPDATE ---
Update Note
Progress Note Update
Talked with patient and in the room. Patient says she has does not recognize the names Plavix or clopidogrel. I also wrote out both medication names on the whiteboard in the room and patient did not recognize the names as written. Informed
patient that she is scheduled to have cath later this morning and that she should not eat the food her brought her, she had not started to eat yet.
[2024-08-22] MEDS: NOVOLOG FLEXPEN SC ×2 (09:06→15:15)
[2024-08-22] MEDS: NOVOLOG FLEXPEN-LOW RESISTANCE SC ×2 (09:07→12:32)
[2024-08-22] MEDS: NEURONTIN 400 MG PO ×3 (09:30→22:13)
[2024-08-22] MEDS: FARXIGA 10 MG PO (09:30)
[2024-08-22] MEDS: ZESTRIL 20 MG PO (09:30)
[2024-08-22] MEDS: DELTASONE 5 MG PO ×2 (09:30→20:07)
[2024-08-22] MEDS: NEURONTIN 800 MG PO ×3 (09:31→22:13)
[2024-08-22] MEDS: PROTONIX IV 40 MG IV (09:31)
[2024-08-22] MEDS: NSS (PRESERVATIVE FREE) 10 ML IV (09:31)
[2024-08-22] MEDS: PLAVIX 300 MG PO (10:06)
[2024-08-22 11:23] LABS: % Basophils 0.3 % (0-2); % Eosinophils 0.8 % (0-6); % Immature Granulocytes 1.5 % (0-0.5); % Lymphocytes 29.4 % (20.5-51.1); % Monocytes 10.6 % (1.7-9.3); % Neutrophils 57.4 % (42.2-75.2); Absolute Eosinophils 0.1 10^3/uL (0-0.7); Absolute Immature Granulocytes 0.1 10^3/uL (0-0.05); Absolute Lymphocytes 1.8 10^3/uL (1.2-3.4); Absolute Monocytes 0.7 10^3/uL (0.1-0.6); Absolute Neutrophils 3.5 10^3/uL (1.4-6.5); Mean Corpuscular Hgb 25.7 pg (27.0-31.0); Mean Corpuscular Volume 82.9 fL (81.0-99.0); Mean Platelet Volume 13.1 fL (7.4-10.4); Nucleated Red Blood Cells % 0 %; Platelet Count 178 10^3/uL (130-400); Red Cell Dist. Width 14.4 % (11.5-14.5); White Blood Cell Count 6.1 10^3/uL (4.8-10.8)
--- NOTE | 2024-08-22 11:33 | ITS.CL.CATH ---
Leadership Intern - Catheterization
Cardiac Catheterization
Procedure Report:
LEFT AND RIGHT HEART CATHETERIZATION
Date of Procedure: August 22, 2024
Referring: Dr. Roderick Dixon
PROCEDURES:
1. Left heart catheterization, coronary angiogram.
2. Right heart catheterization.
3. Ultrasound-guided access
INDICATION: NSTEMI
ACCESS:
1. Right radial artery, 5 Hungarian sheath, under ultrasound guidance
2. Right brachial vein, 6 Hungarian sheath, under ultrasound guidance
HEMODYNAMICS : (mmHg)
RA (m) : 12
RV (s/d,m) : 43/11, 21
PA (s/d, m) : 46/25, 32
PCWP (m) : 25
PA saturation: 58.0% on room air
AO saturation: 88.9 on room air
RA saturation: 56.7% on room air
Cardiac Output : 4.41 L/min by Cl[place]is calculation
Cardiac Index : 2.71 L/min/m-2 by Clovis calculation
Systemic vascular resistance: 1522 dsc^(-5)
Pulmonary vascular resistance: 1.59 hackett unit
AO (s/d) : 112/56
LV (s/d) : 108/30
LVEDP : 30
CORONARY FINDINGS--of note there is significant right subclavian artery tortuosity
DOMINANCE: Right
LEFT MAIN: The left main artery is a large-caliber vessel which gives rise to the left anterior descending artery and the left circumflex artery. There is minimal luminal irregularities.
LEFT ANTERIOR DESCENDING: The left anterior descending artery is a medium caliber vessel which gives rise to 2 major diagonal branch as it courses to the anterior interventricular groove towards the apex. Mid LAD has diffuse up to 80% stenosis
with distal LAD being a decent bypass target. D1 is a very small caliber branch with diffuse severe atherosclerotic plaque. D2 is a medium caliber vessel with diffuse up to 80% proximal stenosis with a possible bypass target.
CIRCUMFLEX: The left circumflex artery is a medium caliber vessel which gives rise to 1 major obtuse marginal branch. There is a subtotal occlusion in the mid left circumflex at the takeoff of the OM1 branch which fills retrogradely with left to
left collaterals.
RIGHT CORONARY ARTERY: The right coronary artery is a medium caliber, dominant vessel which gives rise to the right posterior descending artery and a small right posterolateral system. There is moderate diffuse atherosclerotic plaque.
SEDATION: 60 minutes of procedural sedation was utilized. An independent medical reviewer was present to assist with and help manage the patient's level of consciousness and physiologic status.
RADIATION SUMMARY: Fluoro Time (min): 14.8, Dose (mGy): 545.51, DAP (Gy.cm2) : 49.27
Closure Device:
1. Vascular band over right radial artery, 12 cc of air.
2. Manual pressure was held over the right brachial venous access site with successful hemostasis.
CONCLUSIONS
1. Significant multivessel coronary artery disease.
2. Significantly elevated right left-sided filling pressures with normal cardiac output.
RECOMMENDATIONS
1. Wean radial band per protocol.
2. CT surgery consult for consideration for coronary artery bypass grafting to distal LAD, D2, OM1
3. Discussed with family regarding reinitiation of aspirin desensitization in an ICU setting.
4. Aggressive management of cardiovascular risk factors.
5. Goal-directed medical therapy for severe ischemic cardiomyopathy.
Cecilia Suresh MD, FACC, [facility] [place]
--- NOTE | 2024-08-22 12:07 | W.PN.HOSP.TC ---
Addendum entered and electronically signed by Tiffanie Sauer MD 08/22/24 18:08:
I saw and evaluated the patient independently. I reviewed the resident�s note and agree with findings and plan as documented by Dr. Farmer.
GENERAL: well developed, well nourished, female in no apparent distress--TAJIK SPEAKING ONLY
HEENT: NC/AT
HEART: regular rate and rhythm, +S1, +S2
LUNGS : clear to auscultation bilaterally
ABDOM: soft, nontender, nondistended, + bowel sounds
EXT: no cyanosis, clubbing, or edema
NEUROLOGIC: grossly intact
Chest pain--pulm embolism ruled out with neg chest CT-- ischemia most likely although atypical pain but still possible, ECHO with EF 15-20% and cardiac cath showed triple vessel disease and need for CT surgery eval for CABG--
pericarditis/myocarditis less likely as inflammatory markers although may be elevated from lupus and not related to chest pain-- endocarditis less likely, blood cultures negative--troponin 16-17, EKG without acute changes--if patient becomes
hypotensive, would start stress dose steroids---continue IV heparin for now--apprec cardiology--asa desensitization did not go well and was stopped--initial plan was to move pt to ICU and try again but pt family requested transfer to [facility]--I spoke
with Dr. Riana Yanez, cardiology attending who accepted pt in transfer (disc with images being obtained for transfer)
Abdominal pain--resolved--described as burning in nature so reflux certainly a possibility, despite mildly elevated lipase doubt acute pancreatitis
Systemic lupus erythematosus --not followed by rheumatology--on prednisone 5 mg twice daily--May need rheumatology input--May need stress dose steroids or at least an increase in her maintenance dose....
Type 2 diabetes mellitus--continue insulin with basal bolus dosing and sliding scale coverage, hemoglobin A1c 7.6
Essential hypertension--continue lisinopril--patient states that she also takes metoprolol dose unknown 1 tablet at nighttime (?Toprol XL)--continue meds as able
anxiety--son says she is seen by [facility], obtained list of meds from pt/--will order once placed on outpt home list
DVT prophylaxis--already on IV heparin
CODE STATUS--full code
discharge to [facility] when bed available
Addendum entered and electronically signed by Noé Farmer DO, Resident 08/22/24 15:32:
Left Heart Cath earlier today showed significant multivessel coronary artery disease with recommendation made for CT surgery consult for consideration of CABG. Patient's family requested a transfer to [facility] for further management of CAD as well as
ASA desensitization. Patient's family has been in contact with a gamemaster at [facility] Dr. Peter Jain. Cardiology team here has also contacted the [facility] team for optimization prior to transfer.
Original Note:
Today's Communication/Plan
-
.
Assessment / Plan
Assessment / Plan
1. Nonspecific Chest Pain (Ischemic vs. Pericarditis vs. Endocarditis vs. Pulmonary Embolus)
- Presented with Left sided CP and ab pain that was pleuritic and worse with laying on right side. Resolved this morning.
- ESR and CRP markedly elevated on admission. Description of the pain is typical of pericarditis, but the location is not.
- CT of the chest repeated this morning, with IV contrast: No evidence of pulmonary embolism.
- Endocarditis is possible given the patient has been on antibiotics for approximately 3 weeks due to an infected second toe, but not likely.
- Troponin 16 on admission; EKG was not observed of ischemia, however CAD cannot be ruled out.
- Patient to be taken to left heart cath today. Per cards, patient not allergic to Plavix so if antiplatelet therapy is indicated, this would be the choice. Follow up left heart cath results.
2. Abdominal Pain (resolved)
- Elevated lipase (mild); doubt pancreatitis given presentation.
- Continue to monitor.
3. Systemic Lupus Erythematosus
- Medications prescribed by PCP: prednisone 5mg BID.
- ESR/CRP in the AM; it is possible that the inflammatory markers are elevated due to SLE flare irrespective of the patient's cardiac issues
- Consider increasing the dose of steroids
- Consider rheumatology work up if other etiologies are ruled out
4. Type 2 DM
- Continue basal bolus insulin with Adama ALLEN
5. Essential HTN
- Continue Lisinopril
6. Diabetic Foot Infection
- Hold outpatient course of Levofloxacin 500 mg BID; concern for crossreactivity to ASA
7. ASA allergy
- While attempted to be densensitized to ASA, started to have swollen palpebra. Per protocol given IV benadryl, which caused another adverse reaction.
- Densitization protocol discontinued due to the above.
- Patient to continue with left heart cath; if antiplatelet therapy is indicated, Plavix will be used.
- Consider returning to ASA desensitization protocol if needed, but done during the AM in the ICU.
Anticipated Discharge: > 48 hours
Subjective/Interval History
-
Date of Service: August 22, 2024
Patient seen and examined while resting comfortably in bed with at the bedside. Patient denies any acute complaints this morning. Specifically denies dizziness, chest pain, shortness or breath, abdominal pain, lower extremity swelling,
dyspnea on exertion.
Objective Data
-
Labs:
Laboratory Results
08/22/24 08/22/24 08/22/24
04:33 11:02 13:15
WBC 5.9 6.1
Hgb 9.3 L 9.0 L
Hct 29.3 L 29.0 L
Plt Count 190 178
APTT 71.1 H Pending
Sodium 138
Potassium 4.1
Chloride 108 H
Carbon Dioxide 21 L
BUN 24 H
Creatinine 0.6
Glucose 139 H
Calcium 7.6 L
Vital Signs:
Vital Signs
Temp Pulse Resp BP Pulse Ox
98.4 F 81 18 112/59 96
08/22/24 09:24 08/22/24 09:30 08/22/24 09:24 08/22/24 09:30 08/22/24 09:24
I&O
08/21/24 08/22/24 08/23/24
06:59 06:59 06:59
Intake Total 240 / 240 733 / 733
Output Total 400 / 400
Balance 240 / 240 333 / 333
Review of Systems
-
History Source: Patient
Respiratory: Reports No Symptoms
Cardiac: Reports No Symptoms
Abdomen/GI: Reports No Symptoms
Musculoskeletal: Reports No Symptoms
Physical Exam
-
General: No Apparent Distress
HEENT: Normocephalic and Atraumatic
Respiratory: Clear to Auscultation
Cardiac: Regular Rhythm and S1/S2
GI: Soft and Nontender
Musculoskeletal: No Clubbing, No Cyanosis and No Edema
Skin: Warm and Dry
Neuro: Awake, Alert and Oriented
Psych: Calm
Data Reviewed
-
Labs: Labs Reviewed by me
[2024-08-22 12:20] LABS: Glucose - Point of Care 128 mg/dl (70-99)
--- NOTE | 2024-08-22 12:30 | PTCARENOTE ---
Pt received back from laboratory courier at 1146. TR band present on R radial artery. R hand mottled and cool to the touch, pulse palpable distal to site and POX 96-99% on RA. R brachial cath site c/d/i with no complications noted. Education provided on
activity restrictions for RUE, pt and family verbalize understanding. CAD booklet given to family for review. Call dobson within reach.
[2024-08-22] MEDS: LASIX 20 MG IV (12:55)
[2024-08-22] MEDS: TYLENOL 650 MG PO (12:55)
--- NOTE | 2024-08-22 13:05 | CONSULT.CT ---
Consultation
-
Date/Time Consultation Requested: 08/22/24
Date/Time Consultation Performed: 08/22/24
Requesting Provider: Dr. Suresh
Performing Provider: ANDRES Oconnell for Dr. Yogi Carter
Reason for Consultation: CABG evaluation
Patient History
Physicians
Family Physician: Keli Hernandez
Outpatient Decker Operator: Noé Smith
Inpatient Decker Operator: [facility]
History of Present Illness
63-year-old Indian-speaking female with a past medical history of type 2 diabetes mellitus, systemic lupus erythematosus on chronic oral steroid, and essential hypertension, who presented to [facility] emergency department on 08/21/24 with
a 4 day history of chest pain, burning abdominal pain (worse with inhaling), nausea, and headache. CT chest ruled out a pulmonary embolism. An incidental finding of left lobe thyroid nodule measuring 2.1 cm was noted. Troponin was 16 and IV
heparin initiated. A TTE on 08/21/2024 reported an EF of 15-20% with mild mitral regurgitation. Aspirin desensitization protocol was initiated and abandoned due to apparent tardive dyskinesia like reaction to Benadryl given for edema from ASA
administration.
patient was loaded with Plavix and underwent left heart catheterization which revealed multivessel coronary disease.
Past Medical History
Past Medical History: Asthma, HTN, Hypercholesterolemia, IDDM (x 30 years w/diabetic neuropathy), Psychiatric (anxiety) and Other (systemic lupus erythematosus, chronic steroid use)
Past Surgical History
Past Surgical History: Cholecystectomy, Tonsilectomy and Other (Right great toe amputation, B/L carpel tunnel release)
Family History
Mother: at Age (diabetes and heart disease)
Father: at Age
Social History
Alcohol: None
Drug: None
Tobacco: Former Smoker
Personal:
Living: With Spouse
Allergies
Allergy/AdvReac Type Severity Reaction Status Date / Time
aspirin Allergy Severe Anaphylaxis Verified 08/21/24 19:29
Home Medications
�Medication �Instructions �Recorded �Confirmed �Type
empagliflozin 25 mg tablet 25 mg PO DAILY Diabetes ##0 05/03/20 08/20/24 Rx
(Jardiance)
gabapentin 400 mg capsule 400 mg PO TID take with 800mg 05/09/21 08/20/24 History
gabapentin 800 mg tablet 800 mg PO TID take with 400mg 05/09/21 08/20/24 History
(Neurontin)
insulin aspart U-100 100 unit/mL 35 unit SC AC Diabetes 11/27/22 08/20/24 History
(3 mL) subcutaneous pen (Novolog
FlexPen U-100 Insulin aspart)
insulin glargine 100 unit/mL 45 unit SC QPM Diabetes 11/27/22 08/20/24 History
subcutaneous solution (Lantus
U-100 Insulin)
lisinopril 20 mg tablet 20 mg PO DAILY Blood pressure 11/27/22 08/20/24 History
acetaminophen 325 mg tablet 650 mg (2 x 325 mg) PO Q4HPRN PRN 12/02/22 08/20/24 Rx
mild pain/DOMINGO/temp> 100.4F #0 tabs
levofloxacin 500 mg tablet 500 mg PO DAILY 08/20/24 08/20/24 History
metoprolol succinate 100 mg 100 mg PO DAILY Heart 08/20/24 08/20/24 History
tablet,extended release 24 hr Disease/Condition
Review of Systems
-
History Source: Patient and Family
General: Reports No Symptoms
HEENT: Reports No Symptoms
Respiratory: Reports No Symptoms
Cardiac: Reports Chest Pain and Nausea
Abdomen/GI: Reports Abdominal Pain
: Reports No Symptoms
Musculoskeletal: Reports No Symptoms
Skin: Reports No Symptoms
Neurological: Reports No Symptoms
Vascular: Reports PVD
Physical Exam
Vital Signs
Temp 98.3 F 08/22/24 12:06
Temp route: Oral 08/22/24 12:06
Pulse 76 08/22/24 12:30
Rhythm: Normal sinus rhythm 08/21/24 22:18
Resp Rate 18 08/22/24 12:06
Blood pressure 144/64 08/22/24 12:55
Blood pressure extremity used: Right upper arm 08/22/24 09:24
Position: Sitting 08/22/24 09:24
MAP (cuff-Andria Monitor) 85 08/22/24 12:30
MAP 61 08/21/24 05:06
SaO2 97 08/22/24 12:06
Nasal Cannula flow liters per minute 2 08/22/24 04:24
Oxygen Mode of Delivery Room air 08/22/24 12:06
Pulse Ox at Rest 98 08/21/24 12:13
Can the patient verbally communicate their pain? Yes 08/22/24 12:55
Pain scale ratin 08/22/24 12:55
Actual Weight 66.3 kg 08/22/24 04:24
Body Mass Index (BMI) 28.5 08/22/24 04:24
Supine- Blood Pressure 92/50 08/21/24 10:45
Supine- Pulse 72 08/21/24 10:45
Sitting- Blood Pressure 92/50 08/21/24 12:13
Sitting- Pulse 72 08/21/24 12:13
Heart rate after activity 74 08/21/24 12:13
Blood pressure after activity 86/47 08/21/24 12:13
Oxygen Saturation with Activity 98 08/21/24 12:13
Labs
08/22/24 11:02
08/22/24 04:33
APTT 71.1 Sec (23.4-35.0) H 08/22/24 04:33
Hemoglobin A1c 7.6 % (4.0-5.6) H 08/20/24 14:54
Troponin I 17.200 ng/ml H* 08/20/24 20:52
Exam
General: Well Developed, Well Nourished and Comfortable
HEENT: Normocephalic, Anicteric and Moist Mucous Membranes
Neck: Trachea Midline
Respiratory: Clear
Cardiac: S1/S2 and Regular Rhythm
GI: Soft, Non Tender, Non Distended and Normal Bowel Sounds
Rectal: Deferred by Provider
Skin: Warm and Dry
Neuro: AO x 3, No Motor Deficits and Nonfocal/Grossly Intact
Extremities: Pulses (+2/4 DP pulses B/L)
Lymph: No Lymphadenopathy
Psych: Calm
Assessment / Plan
-
63 year old female admitted for NSTEMI/multivessel coronary disease and acute HFrEF (15-20%)
- surgeon to render opinion re: CABG in setting of ASA anaphylaxis
- family seeking second opinion at [facility]
Data Reviewed
-
EKG: Report Reviewed by me and Discussed with Physician
Obstetric Anaesthetist: Report Reviewed by me and Discussed with Physician
Echo: Report Reviewed by me and Discussed with Physician
Radiology: Report Reviewed by me and Discussed with Physician
Labs: Labs Reviewed by me and Discussed with Physician
--- NOTE | 2024-08-22 13:45 | W.PN.UPDATE ---
Addendum entered and electronically signed by Shelley Myers PA-C 08/22/24 14:41:
Call to medical laboratory scientist and they are going to make disc with cath films and place on patient's chart.
Addendum entered and electronically signed by Cecilia Suresh MD 08/22/24 14:09:
Called and spoke with shuttle threader, Peter, as requested below regarding patient/family's request to be transferred to [facility] for aspirin desensitization and further care. Patient is thought to be appropriate to be on the
cardiology floor service where Peter serves as a shuttle threader along with an attending. He recommended that a transfer be initiated per patient's request through the transfer center. Discussed with hospitalist, Dr. Tiffanie Sauer regarding
all of the above who will reach out to the transfer center and arrange for transfer per family's request.
Cecilia Suresh MD, [facility]
Original Note:
Update Note
Progress Note Update
TT from nursing that patient and family would like to be transferred to [place]. Family has already been talking to a Dr. Peter Jain who is a shuttle threader at [place]. I called Dr. Jain at [phone] and provided HPI including aspirin allergy,
but did not have cath results. Will have Dr. Suresh call and talk to Dr. Jain.
--- NOTE | 2024-08-22 14:35 | CM ---
Chart reviewed. Patient is independent of ADLS, lives with her in a [address], 4[address], has a SPC and RW at home if needed. Referral sent to [facility]. Plan is for the patient to return home with [facility]. CM to follow
[2024-08-22] MEDS: NSS IV (15:23)
[2024-08-22] MEDS: NOVOLOG FLEXPEN 16 UNITS SC (15:26)
[2024-08-22 15:27] LABS: Glucose - Point of Care 256 mg/dl (70-99)
[2024-08-22] MEDS: NOVOLOG FLEXPEN-LOW RESISTANCE 3 UNITS SC (15:27)
[2024-08-22] MEDS: CRESTOR 20 MG PO (16:56)
[2024-08-22] MEDS: LANTUS 0.35 UNITS SC (16:56)
--- NOTE | 2024-08-22 17:15 | PTCARENOTE ---
TR band removed without complication at 1549, site dressed with gauze and Tegaderm, dressing c/d/i. Per order, Heparin gtt restarted at previous rate of 1700units/hr. Next PTT ordered for 2300 per protocol.
[2024-08-22 22:18] LABS: Glucose - Point of Care 163 mg/dl (70-99)
--- NOTE | 2024-08-22 23:07 | PTCARENOTE ---
Patient normal sinus rhythm on satellite project site monitor. Right radial site gauze with tegaderm C/D/I, area soft to palpation. Right brachial site gauze with tegaderm C/D/I, area soft to palpation. Bilateral radial pulse +2 to palpation. Language line at
bedside to assist with interpretation. Patient's daughter also at bedside. Patient denies pain, denies shortness of breath. Heparin gtt infusing per protocol/order. Plan of care discussed with patient and family. Call dobson within reach. Plan of care
ongoing.
[2024-08-23] MEDS: HEPARIN 25000 UNITS/250 ML IV ×2 (01:47→21:25)
[2024-08-23 04:10] VITALS: BP 117/67
[2024-08-23 04:15] VITALS: BMI 28.7
[2024-08-23 05:05] LABS: Blood Urea Nitrogen 15 mg/dl (7-17); Calcium 7.7 mg/dl (8.4-10.2); Carbon Dioxide 22 mmol/L (22-30); Chloride 106 mmol/L (98-107); Estimated Creatinine Clearance 82 ml/min; Glucose 147 mg/dl (70-99); Potassium 4.1 mmol/L (3.5-5.1); Sodium 139 mmol/L (135-145); eGFR > 60.00
[2024-08-23 07:09] LABS: APTT 182.1 Sec (23.4-35.0)
[2024-08-23 08:03] VITALS: BP 124/69
[2024-08-23 08:07] LABS: Glucose - Point of Care 96 mg/dl (70-99)
[2024-08-23] MEDS: NOVOLOG FLEXPEN-LOW RESISTANCE SC ×2 (10:01→17:32)
[2024-08-23] MEDS: NOVOLOG FLEXPEN 8 UNITS SC (10:02)
[2024-08-23] MEDS: ZESTRIL 20 MG PO (10:05)
[2024-08-23] MEDS: DELTASONE 5 MG PO ×2 (10:06→21:23)
[2024-08-23] MEDS: NSS (PRESERVATIVE FREE) 10 ML IV (10:07)
[2024-08-23] MEDS: LASIX 20 MG IV (10:07)
[2024-08-23] MEDS: NEURONTIN 800 MG PO ×3 (10:07→21:23)
[2024-08-23] MEDS: FARXIGA 10 MG PO (10:07)
[2024-08-23] MEDS: NEURONTIN 400 MG PO ×3 (10:07→21:23)
[2024-08-23] MEDS: PROTONIX IV 40 MG IV (10:07)
[2024-08-23] MEDS: TYLENOL 650 MG PO (11:15)
[2024-08-23 12:25] VITALS: BP 136/65
--- NOTE | 2024-08-23 12:28 | W.PN.HOSP.TC ---
Addendum entered and electronically signed by Tiffanie Sauer MD 08/23/24 16:29:
I saw and evaluated the patient independently. I reviewed the resident�s note and agree with findings and plan as documented by Dr. Farmer.
GENERAL: well developed, well nourished, female in no apparent distress--[place] SPEAKING ONLY
HEENT: NC/AT
HEART: regular rate and rhythm, +S1, +S2
LUNGS : clear to auscultation bilaterally
ABDOM: soft, nontender, nondistended, + bowel sounds
EXT: no cyanosis, clubbing, or edema
NEUROLOGIC: grossly intact
Chest pain--pulm embolism ruled out with neg chest CT-- ischemia most likely although atypical pain but still possible, ECHO with EF 15-20% and cardiac cath showed triple vessel disease and need for CT surgery eval for CABG--
pericarditis/myocarditis less likely as inflammatory markers although may be elevated from lupus and not related to chest pain-- endocarditis ruled out, blood cultures negative--troponin 16-17, EKG without acute changes--if patient becomes
hypotensive, would start stress dose steroids---continue IV heparin for now--apprec cardiology--asa desensitization did not go well and was stopped--initial plan was to move pt to ICU and try again but pt family requested transfer to [facility]--I spoke
with Dr. Riana Yanez, cardiology attending who accepted pt in transfer (disc with images being obtained for transfer)
Abdominal pain--resolved--described as burning in nature so reflux certainly a possibility, despite mildly elevated lipase doubt acute pancreatitis
Systemic lupus erythematosus --not followed by rheumatology--on prednisone 5 mg twice daily--May need rheumatology input--May need stress dose steroids or at least an increase in her maintenance dose....
Type 2 diabetes mellitus--continue insulin with basal bolus dosing and sliding scale coverage, hemoglobin A1c 7.6
Essential hypertension--continue lisinopril--patient states that she also takes metoprolol dose unknown 1 tablet at nighttime (?Toprol XL)--continue meds as able
anxiety--son says she is seen by [facility], obtained list of meds from pt/--will order once placed on outpt home list
wounds (POA) --Slowly healing R 2nd toe tip, dry pink deep dermal vs healing full thickness with dry callus. No purulence. No erythema. Skin dry in areas on feet and heels. Dull red sacrum
DVT prophylaxis--already on IV heparin
CODE STATUS--full code
discharge to [facility] when bed available
Original Note:
Today's Communication/Plan
-
Transfer to [facility] accepted. Awaiting bed.
Assessment / Plan
Assessment / Plan
1. Nonspecific Chest Pain (Ischemic vs. Pericarditis vs. Endocarditis vs. Pulmonary Embolus)
- Presented with Left sided CP and ab pain that was pleuritic and worse with laying on right side. Resolved this morning.
- ESR and CRP markedly elevated on admission. Description of the pain is typical of pericarditis, but the location is not.
- CT of the chest repeated this morning, with IV contrast: No evidence of pulmonary embolism.
- Endocarditis is possible given the patient has been on antibiotics for approximately 3 weeks due to an infected second toe, but not likely.
- Troponin 16 on admission; EKG was not observed of ischemia, however CAD cannot be ruled out.
- Left Heart Cath yesterday. Per cards, patient not allergic to Plavix so if antiplatelet therapy is indicated, this would be the choice.
- Left Heart Cath reveal multivessel coronary disease. Cards opinion: ASA desensitization and CABG. Family requests transfer to [place] for advanced cardiac care.
- Transfer accepted by Dr. Riana Yanez; awaiting bed at [facility].
2. Abdominal Pain (resolved)
- Elevated lipase in ED (mild); doubt pancreatitis given presentation.
- Repeat lipase today 1187, mild elevation from presentation 3 days ago/lack of true symptoms. Will continue to trend.
3. Systemic Lupus Erythematosus
- Medications prescribed by PCP: prednisone 5mg BID.
- Elevated ESR/CRP at admission; it is possible that the inflammatory markers are elevated due to SLE flare irrespective of the patient's cardiac issues
- Pericarditis ruled out.
4. Type 2 DM
- Continue basal bolus insulin with Adama ALLEN
5. Essential HTN
- Continue Lisinopril
6. Diabetic Foot Infection
- Hold outpatient course of Levofloxacin 500 mg BID; concern for crossreactivity to ASA
7. ASA allergy
- While attempted to be densensitized to ASA, started to have swollen palpebra. Per protocol given IV benadryl, which caused another adverse reaction.
- Densitization protocol discontinued due to the above.
- Patient to continue with left heart cath; if antiplatelet therapy is indicated, Plavix will be used.
- Consider returning to ASA desensitization protocol if needed.
- Patient to be transferred to [place] to receive ASA desensitization protocol
Anticipated Discharge: Within 24 hours
Subjective/Interval History
-
Date of Service: August 23, 2024
Patient seen and examined while sitting up in bed. Patient's daughter is at bedside. Patient states that she feels more or less the same from yesterday, but today complains of mild pain with inspiration similar to when she first was admitted,
particularly bilaterally just inferior to the breast line. Other muro she denies dizziness, chest pain, palpitations, shortness of breath, dyspnea on exertion, lower extremity edema, calf pain.
Objective Data
-
Labs:
Laboratory Results
08/22/24 08/23/24 08/23/24
23:42 04:20 06:32
APTT 128.0 H 182.1 H*
Sodium 139
Potassium 4.1
Chloride 106
Carbon Dioxide 22
BUN 15
Creatinine 0.6
Glucose 147 H
Calcium 7.7 L
08/23/24
13:30
APTT Pending
Sodium
Potassium
Chloride
Carbon Dioxide
BUN
Creatinine
Glucose
Calcium
Vital Signs:
Vital Signs
Temp Pulse Resp BP Pulse Ox
99.0 F 77 14 117/67 95
08/23/24 04:09 08/23/24 06:00 08/23/24 04:09 08/23/24 04:10 08/23/24 09:30
I&O
08/22/24 08/23/24 08/24/24
06:59 06:59 06:59
Intake Total 733 / 733 556 / 556
Output Total 400 / 400 1700 / 1700
Balance 333 / 333 -1144 / -1144
Review of Systems
-
History Source: Patient
Constitutional: Reports No Symptoms
EENT: Reports No Symptoms Reported
Respiratory: Reports No Symptoms
Cardiac: Reports Other (pleuritic pain under the breast line bilaterally)
Abdomen/GI: Reports No Symptoms
Musculoskeletal: Reports No Symptoms
Neuro: Reports No Symptoms
Physical Exam
-
General: Well Developed, Well Nourished, No Apparent Distress and Comfortable
HEENT: Normocephalic and Atraumatic
Respiratory: Clear to Auscultation
Cardiac: Regular Rhythm and S1/S2
GI: Soft, Nontender and Nondistended
Musculoskeletal: No Clubbing, No Cyanosis, No Edema and Other (no calf tenderness )
Skin: Warm and Dry
Neuro: Awake, Alert and AO x 3
Psych: Calm
Data Reviewed
-
Labs: Labs Reviewed by me, Discussed with Patient and Discussed with Family
[2024-08-23 12:34] LABS: Glucose - Point of Care 209 mg/dl (70-99)
[2024-08-23] MEDS: NOVOLOG FLEXPEN-LOW RESISTANCE 2 UNITS SC (12:34)
[2024-08-23] MEDS: NOVOLOG FLEXPEN 16 UNITS SC (12:34)
--- NOTE | 2024-08-23 12:48 | PTCARENOTE ---
Assesment stable as documented, VSS. Family at bedside, pt without complaints. OOB in chair most of day. Poor appetite - encouraging PO intake
[2024-08-23 12:57] LABS: Lipase 1187 U/L (23-300)
[2024-08-23 15:12] LABS: APTT 66.5 Sec (23.4-35.0)
[2024-08-23 16:29] VITALS: BP 108/59
[2024-08-23 16:34] LABS: Glucose - Point of Care 81 mg/dl (70-99)
[2024-08-23] MEDS: NOVOLOG FLEXPEN SC (17:32)
[2024-08-23] MEDS: LANTUS SC (18:31)
[2024-08-23] MEDS: CRESTOR 20 MG PO (18:38)
[2024-08-23 20:02] VITALS: BP 110/62
[2024-08-23 21:40] LABS: Glucose - Point of Care 73 mg/dl (70-99)
[2024-08-23 21:51] VITALS: BP 117/56
[2024-08-24] VITALS (12 sets, daily range): BP systolic 110–135; BP diastolic 51–76; PULSE 77–78; O2SAT 98; BMI 28.5
--- NOTE | 2024-08-24 04:03 | PTCARENOTE ---
Pt heparin gtt running as documented. No CP complaints overnight. [facility] transfer center called- still waiting for insurance to prior auth. SR on the monitor. ambulating as a stand by assist.
[2024-08-24] MEDS: TYLENOL 650 MG PO ×2 (05:30→09:30)
[2024-08-24 05:40] LABS: Hematocrit 30.9 % (37.0-47.0); Hemoglobin 9.7 g/dL (12.0-16.0); Mean Corp Hgb Conc. 31.4 g/dL (33.0-37.0); Mean Corpuscular Hgb 25.9 pg (27.0-31.0); Mean Corpuscular Volume 82.4 fL (81.0-99.0); Mean Platelet Volume 12.5 fL (7.4-10.4); Platelet Count 203 10^3/uL (130-400); Red Blood Cell Count 3.75 10^6/uL (4.20-5.40); Red Cell Dist. Width 14.4 % (11.5-14.5); White Blood Cell Count 5.9 10^3/uL (4.8-10.8)
[2024-08-24 05:44] LABS: APTT 87.8 Sec (23.4-35.0)
[2024-08-24 05:54] LABS: Blood Urea Nitrogen 12 mg/dl (7-17); Calcium 8.2 mg/dl (8.4-10.2); Carbon Dioxide 26 mmol/L (22-30); Chloride 106 mmol/L (98-107); Estimated Creatinine Clearance 81 ml/min; Glucose 101 mg/dl (70-99); Lipase 881 U/L (23-300); Potassium 4.2 mmol/L (3.5-5.1); Sodium 139 mmol/L (135-145); eGFR > 60.00
--- NOTE | 2024-08-24 07:43 | W.PN.HOSP.TC ---
Addendum entered and electronically signed by Tiffanie Sauer MD 08/24/24 17:10:
I saw and evaluated the patient independently. I reviewed the resident�s note and agree with findings and plan as documented by Dr. Farmer.
GENERAL: well developed, well nourished, female in no apparent distress--[place] SPEAKING ONLY
HEENT: NC/AT
HEART: regular rate and rhythm, +S1, +S2
LUNGS : clear to auscultation bilaterally
ABDOM: soft, nontender, nondistended, + bowel sounds
EXT: no cyanosis, clubbing, or edema
NEUROLOGIC: grossly intact
Chest pain--NSTEMI most likely--s/p cath with triple vessel disease and ECHO with EF 15-20% and need for CT surgery eval for CABG--cont IV heparin--apprec cards--pulm embolism ruled out with neg chest CT--pericarditis/myocarditis ruled out as
inflammatory markers although may be elevated from lupus-- endocarditis ruled out as blood cultures negative---asa desensitization did not go well and was stopped as reacted to 5 mg asa only--initial plan was to move pt to ICU and try again but pt
family requested transfer to [place]--I spoke with Dr. Riana Yanez, cardiology attending who accepted pt in transfer (disc with images being obtained for transfer)
Abdominal pain--resolved--described as burning in nature so reflux certainly a possibility, despite mildly elevated lipase doubt acute pancreatitis
Systemic lupus erythematosus --not followed by rheumatology--on prednisone 5 mg twice daily--no need for stress dose steroids at this time
Type 2 diabetes mellitus--continue insulin with basal bolus dosing and sliding scale coverage, hemoglobin A1c 7.6
Essential hypertension--continue lisinopril--patient states that she also takes metoprolol dose unknown 1 tablet at nighttime (?Toprol XL)--continue meds as able
anxiety--son says she is seen by [facility], obtained list of meds from pt/-
wounds (POA) --Slowly healing R 2nd toe tip, dry pink deep dermal vs healing full thickness with dry callus. No purulence. No erythema. Skin dry in areas on feet and heels. Dull red sacrum
DVT prophylaxis--already on IV heparin
CODE STATUS--full code
discharge to [facility] when bed available
Original Note:
Today's Communication/Plan
-
Transfer to [facility] accepted. Awaiting bed and prior auth.
Assessment / Plan
Assessment / Plan
1. Nonspecific Chest Pain (Ischemic vs. Pericarditis vs. Endocarditis vs. Pulmonary Embolus)
- Presented with Left sided CP and ab pain that was pleuritic and worse with laying on right side. Resolved this morning.
- ESR and CRP markedly elevated on admission. Description of the pain is typical of pericarditis, but the location is not.
- CT of the chest repeated this morning, with IV contrast: No evidence of pulmonary embolism.
- Endocarditis is possible given the patient has been on antibiotics for approximately 3 weeks due to an infected second toe, but not likely.
- Troponin 16 on admission; EKG was not observed of ischemia, however CAD cannot be ruled out.
- Left Heart Cath yesterday. Per cards, patient not allergic to Plavix so if antiplatelet therapy is indicated, this would be the choice.
- Left Heart Cath reveal multivessel coronary disease. Cards opinion: ASA desensitization and CABG. Family requests transfer to [place] for advanced cardiac care.
- Transfer accepted by Dr. Riana Yanez; awaiting bed at [facility]. Awaiting prior authorization.
2. Abdominal Pain (resolved)
- Elevated lipase in ED (mild); doubt pancreatitis given presentation.
- Repeat lipase yesterday 1187, mild elevation from presentation 3 days ago/lack of true symptoms.
- Repeat lipase this morning 881, downtrending. Will continue to monitor for symptoms and repeat lipase if pain returns.
3. Systemic Lupus Erythematosus
- Medications prescribed by PCP: prednisone 5mg BID.
- Elevated ESR/CRP at admission; it is possible that the inflammatory markers are elevated due to SLE flare irrespective of the patient's cardiac issues
- Pericarditis ruled out.
4. Type 2 DM
- Continue basal bolus insulin with Adama ALLEN
5. Essential HTN
- Continue Lisinopril
6. Diabetic Foot Infection
- Hold outpatient course of Levofloxacin 500 mg BID; concern for crossreactivity to ASA
7. ASA allergy
- While attempted to be densensitized to ASA, started to have swollen palpebra. Per protocol given IV benadryl, which caused another adverse reaction.
- Densitization protocol discontinued due to the above.
- Patient to continue with left heart cath; if antiplatelet therapy is indicated, Plavix will be used.
- Consider returning to ASA desensitization protocol if needed.
- Patient to be transferred to [place] to receive ASA desensitization protocol. Awaiting prior authirization.
Anticipated Discharge: Within 24 hours
Subjective/Interval History
-
Date of Service: August 24, 2024
Patient seen and examined while sitting up at the edge of the bed. Patient denies any acute complaints this morning. States that the bilateral pain that she felt below the breast line yesterday is still present, but less painful than yesterday.
Patient specifically denies complaints of dizziness, headache, chest pain, SOB, calf tenderness or lower extremity edema.
Objective Data
-
Labs:
Laboratory Results
08/23/24 08/24/24
21:51 05:15
WBC 5.9
Hgb 9.7 L
Hct 30.9 L
Plt Count 203
APTT 78.0 H 87.8 H
Sodium 139
Potassium 4.2
Chloride 106
Carbon Dioxide 26
BUN 12
Creatinine 0.5 L
Glucose 101 H
Calcium 8.2 L
Vital Signs:
Vital Signs
Temp Pulse Resp BP Pulse Ox
98.1 F 86 18 110/57 97
08/23/24 22:17 08/24/24 05:00 08/23/24 22:17 08/24/24 04:42 08/23/24 22:17
I&O
08/23/24 08/24/24 08/25/24
06:59 06:59 06:59
Intake Total 556 / 556
Output Total 1700 / 1700
Balance -1144 / -1144
Review of Systems
-
History Source: Patient
Constitutional: Reports No Symptoms
Respiratory: Reports No Symptoms
Cardiac: Reports No Symptoms
Abdomen/GI: Reports Other (pain just inferior to the breast line bilaterally improved from yesterday)
Musculoskeletal: Reports No Symptoms
Neuro: Reports No Symptoms
Physical Exam
-
General: Well Developed and No Apparent Distress
HEENT: Normocephalic and Atraumatic
Respiratory: Clear to Auscultation
Cardiac: Regular Rhythm and S1/S2
GI: Soft and Nontender
Musculoskeletal: No Clubbing, No Cyanosis and No Edema
Skin: Warm and Dry
Neuro: Awake and Alert
Psych: Calm
Data Reviewed
-
Labs: Labs Reviewed by me
[2024-08-24 07:55] LABS: Glucose - Point of Care 123 mg/dl (70-99)
[2024-08-24] MEDS: NOVOLOG FLEXPEN-LOW RESISTANCE SC ×3 (08:00→17:11)
[2024-08-24] MEDS: NSS (PRESERVATIVE FREE) 10 ML IV (08:11)
[2024-08-24] MEDS: LASIX 20 MG IV (08:12)
[2024-08-24] MEDS: NEURONTIN 400 MG PO ×3 (08:12→21:59)
[2024-08-24] MEDS: FARXIGA 10 MG PO (08:12)
[2024-08-24] MEDS: PROTONIX IV 40 MG IV (08:12)
[2024-08-24] MEDS: NOVOLOG FLEXPEN 16 UNITS SC ×3 (08:13→17:05)
[2024-08-24] MEDS: NEURONTIN 800 MG PO ×3 (08:13→22:00)
[2024-08-24] MEDS: DELTASONE 5 MG PO ×2 (08:13→19:56)
[2024-08-24] MEDS: ZESTRIL 20 MG PO (08:13)
--- NOTE | 2024-08-24 09:53 | W.PN.CARDCBS ---
Addendum entered and electronically signed by Cecilia Suresh MD 08/24/24 14:30:
I saw and examined the patient.
The Foiling Machine Adjuster's note was reviewed and I agree with the note.
Comment: Patient continues to be comfortable and chest pain-free. Her breathing is comfortable and she denies any other complaints. and daughter at bedside. Awaiting transfer to [facility].
On exam patient is well-appearing, in no acute distress, awake, alert and oriented x 3, regular rate, normal S1 and S2, no murmurs, rubs or gallops, mildly decreased breath sounds at bases but otherwise clear to auscultation, abdomen is soft,
nontender, nondistended with active bowel sounds, warm extremities without significant edema
Recommendations:
1. Continue IV heparin drip given presentation of an NSTEMI and currently not on any antiplatelet agents due to a significant aspirin allergy (recently failed desensitization with a adverse reaction after 5 mg of aspirin). She received 300 mg of
Plavix on Wednesday, August 22, 2024 and is now being held in preparation for upcoming CABG for underlying multivessel coronary artery disease. We discussed retrial of desensitization in an ICU setting however they would prefer waiting until after
she is transferred to [facility].
2. Continue Toprol-XL 25 mg daily and closely monitor labs along with her blood counts.
3. Echocardiogram with global hypokinesis with severe LV systolic dysfunction and LVEF of 15 to 20%. No significant valvular abnormalities.
Cecilia Suresh MD, [facility], [facility]
Addendum entered and electronically signed by Shelley Myers PA-C 08/24/24 13:26:
.
Original Note:
Today's Communication / Plan
-
Awaiting insurance auth prior to transfer to [facility]
Chest pain free on Heparin gtt, stable Plt # and renewed by me
Restarted Toprol XL 25 mg daily, ordered by me
Checked LFTs, ordered by me
Impression / Plan
-
PCP: Dr. Hernandez
Foil Stamp Operator: None prior to arrival
Impression:
Admitted with chest pain, abdominal pain, DOMINGO 08/20/24
NSTEMI
CAD
LM with minimal luminal irregularities, LAD medium caliber with diffuse 80% mid lesion and distal LAD decent bypass target, Diag-1 small caliber with diffuse severe atherosclerosis, Diag-2 medium caliber with diffuse up to 80% proximal stenosis and
possible bypass target, circumflex with subtotal occlusion in midportion and OM1 branch fills retrograde via left to left collaterals, RCA medium caliber and dominant vessel with RPDA and small RPLB by cath 08/22/24
Anaphylactic aspirin allergy
Elevated CRP
Type 2 diabetes
Peripheral vascular disease
Prior podiatric interventions
History of systemic lupus erythematosus
Essential hypertension
Echo 08/21/2024: EF 15 to 20% with severe global hypokinesis, mild MR
Plan:
-Patient with DOMINGO, abdominal pain and chest pain x4 days and Troponin 16.4 on admission 08/20/24 AM. Troponin peaked at 17.3 on 08/20/24 evening. ECG with nonspecific ST changes. Echo with EF 15%. Patient with aspirin allergy and aspirin
desensitization protocol attempted on 08/21/24 evening, patient was given aspirin 5 mg PO x1 at 1740 on 08/21/24 and eyes appeared swollen. Diphenhydramine 50 mg IV x1 given for eye swelling and then patient complained of left hand tremors which
improved with Ativan 0.5 mg IV x1. Aspirin desensitization therapy was stopped. Patient was loaded with Plavix 300 mg PO x1 on 08/22/24 AM and then had cath that revealed MV CAD. No additional doses of Plavix given. Aspirin desensitization therapy
ordered to be attempted again and CT surgery consulted. Patient's family requested transfer to [place]. Awaiting insurance auth as of 08/24/23 AM.
-No chest pain 08/24/24
-Remains on Heparin gtt 08/24/24. Plt # stable at 203 on 08/24/24
-CT of chest 08/21/24 negative for PE. Did note coronary calcifications.
-Outpatient dose of lisinopril 20 mg daily has been continued
-BP 135/71 on 08/24/2024 AM, heart rate 80. Will restart Toprol XL at 25 mg daily. Patient was taking Toprol-XL 100 mg daily prior to admission
-Patient with known DM 2 and Hgb A1c 7.6%. Outpatient dose of Jardiance 25 mg daily was changed to Farxiga 10 mg daily due to formulary changes. Hospitalist attending is coordinating basal bolus dosing and sliding scale coverage of insulin
-Patient was not taking a statin prior to admission. AST 78 on admission and then improved to 73. ALT 64 on admission and then up to 73. LDL 105. New to Crestor 20mg daily 08/21/24. Recheck LFTs now.
-Patient with known h/o SLE and was taking Plaquenil 200 mg BID and prednisone 5 mg BID prior to admission. Prednisone 5 mg BID has been continued, but Plaquenil has been on hold since admission. No stress doses of steroids given.
-Single elevated temp up to 101 degrees Fahrenheit on 08/21/24. Blood cultures without growth. WBC normal throughout. No additional fevers.
-Appreciate help of who called [facility] on 08/24/24 and was told that we are awaiting insurance auth. Reviewed with patient and her that auth was likely delayed due to federal holiday on 08/23/24.
Progress Note - Foil Stamp Operator
Subjective
Date of Service: August 24, 2024
Denies chest pain
Objective
Labs:
08/24/24 05:15
08/24/24 05:15
Labs
Hgb 9.7 g/dL (12.0-16.0) L 08/24/24 05:15
Hct 30.9 % (37.0-47.0) L 08/24/24 05:15
Plt Count 203 10^3/uL (130-400) 08/24/24 05:15
APTT 87.8 Sec (23.4-35.0) H 08/24/24 05:15
Sodium 139 mmol/L (135-145) 08/24/24 05:15
Potassium 4.2 mmol/L (3.5-5.1) 08/24/24 05:15
BUN 12 mg/dl (7-17) 08/24/24 05:15
Creatinine 0.5 mg/dL (0.6-1.0) L 08/24/24 05:15
Glucose 101 mg/dl (70-99) H 08/24/24 05:15
Vital Signs and I&O:
Vital Signs
Temp Pulse Resp BP Pulse Ox
97.9 F 80 18 135/71 90
08/24/24 07:49 08/24/24 09:26 08/24/24 07:49 08/24/24 09:26 08/24/24 07:49
Vital Signs
Temp Pulse Resp BP Pulse Ox
97.9 F 80 18 135/71 90
08/24/24 07:49 08/24/24 09:26 08/24/24 07:49 08/24/24 09:26 08/24/24 07:49
Intake & Output
08/22/24 08/23/24 08/24/24 08/25/24
06:59 06:59 06:59 06:59
Intake Total 733 / 733 556 / 556
Output Total 400 / 400 1700 / 1700
Balance 333 / 333 -1144 / -1144
Physical Exam
Physical Exam
GEN: AAOx3
HEENT: EOMI
LUNGS: No audible wheeze
CV: SR on tele
ABD: ND
EXT: No edema B/L
NEURO: Gross non-focal
SKIN: No rash
Scores
CRUZ for NSTEMI
Age >/= 65: No
>/=3 CAD risk factors-HTN,High Chol,Fam hx CAD,DM,Smoker: Yes
Known CAD (stenosis >/=50%): Yes
ASA use in past 7 days: No
Severe angina (>/= 2 episodes in 24 hrs): Yes
EKG ST Changes >/= 0.5mm: No
Positive cardiac marker: Yes
Score: 4
Risk at 14 days-mortality, new/recurrent [place], severe ischemia: Intermediate Risk- 20% Risk at 14 days- all cause mortality, new or recurrent [place], or severe recurrent ischemia requiring urgent revascularization
--- NOTE | 2024-08-24 11:00 | CM ---
Chart reviewed. Patient is Korean speaking, at bedside. Patient is independent of ADLS, lives with her in a [address], 4 [address], ambulates with a RW and SPC. Patient waiting on transfer to [facility]. I called [facility] this
morning and they are waiting on insurance authorization from their correctional counselor/case manager. Plan is for the patient to transfer to [place] for CT Surgery. CM to follow
[2024-08-24] MEDS: TOPROL XL 25 MG PO (11:08)
[2024-08-24 12:39] LABS: Glucose - Point of Care 131 mg/dl (70-99)
[2024-08-24 13:47] LABS: ALT (SGPT) 30 U/L (0-35); AST (SGOT) 27 U/L (14-36); Albumin 3.3 g/dl (3.5-5.0); Alkaline Phosphatase 80 U/L (38-126); Direct Bilirubin 0.1 mg/dl (0.0-0.4); Total Bilirubin 0.2 mg/dl (0.2-1.3); Total Protein 6.7 g/dl (6.3-8.2)
[2024-08-24 16:45] LABS: Glucose - Point of Care 129 mg/dl (70-99)
[2024-08-24] MEDS: HEPARIN 25000 UNITS/250 ML IV (17:07)
[2024-08-24 18:22] LABS: Glucose - Point of Care 107 mg/dl (70-99)
[2024-08-24] MEDS: CRESTOR 20 MG PO (18:26)
[2024-08-24] MEDS: LANTUS SC (18:31)
[2024-08-24] MEDS: LANTUS 0.16 UNITS SC (19:06)
[2024-08-24] MEDS: PEPCID 20 MG PO (19:56)
[2024-08-24] MEDS: PLAQUENIL 200 MG PO (19:56)
[2024-08-24 21:23] LABS: Glucose - Point of Care 109 mg/dl (70-99)
[2024-08-24] MEDS: ATARAX 25 MG PO (22:00)
[2024-08-25] VITALS (8 sets, daily range): BP systolic 98–140; BP diastolic 58–123; BMI 28.4
--- NOTE | 2024-08-25 00:21 | PTCARENOTE ---
Rec'd pt at change of shift. Pt AAO*3, VSS, and pt in NSR on tele monitor. Pt denies any pain or discomfort. Pt Indonesian speaking with hospital busgirl at bedside. Pt w heparin gtt infusing (see flowchart for assessment & rate). Awaiting
transfer to [facility] and resting with call dobson in reach. Plan of care ongoing.
[2024-08-25 04:34] LABS: Glucose - Point of Care 131 mg/dl (70-99)
[2024-08-25 06:22] LABS: Blood Urea Nitrogen 14 mg/dl (7-17); Calcium 8.3 mg/dl (8.4-10.2); Carbon Dioxide 27 mmol/L (22-30); Chloride 107 mmol/L (98-107); Estimated Creatinine Clearance 81 ml/min; Glucose 141 mg/dl (70-99); Potassium 4.4 mmol/L (3.5-5.1); Sodium 141 mmol/L (135-145); eGFR > 60.00
[2024-08-25 09:04] LABS: Glucose - Point of Care 145 mg/dl (70-99)
[2024-08-25] MEDS: TOPROL XL 25 MG PO (09:04)
[2024-08-25] MEDS: NEURONTIN 800 MG PO ×3 (09:04→22:32)
[2024-08-25] MEDS: NOVOLOG FLEXPEN-LOW RESISTANCE SC ×2 (09:04→17:27)
[2024-08-25] MEDS: FARXIGA 10 MG PO (09:04)
[2024-08-25] MEDS: LASIX 20 MG IV (09:04)
[2024-08-25] MEDS: PLAQUENIL 200 MG PO ×2 (09:05→20:13)
[2024-08-25] MEDS: NEURONTIN 400 MG PO ×3 (09:05→22:32)
[2024-08-25] MEDS: PROTONIX IV 40 MG IV (09:05)
[2024-08-25] MEDS: DELTASONE 5 MG PO ×2 (09:05→20:14)
[2024-08-25] MEDS: NSS (PRESERVATIVE FREE) 10 ML IV (09:05)
[2024-08-25] MEDS: ZESTRIL 20 MG PO (09:05)
[2024-08-25] MEDS: PEPCID 20 MG PO ×2 (09:07→20:13)
[2024-08-25] MEDS: CELEXA 20 MG PO (09:07)
--- NOTE | 2024-08-25 09:33 | W.PN.CARDCBS ---
Today's Communication / Plan
-
Antiplatelets on hold
Continue heparin drip
Tentative plan for transfer to [facility]
Impression / Plan
-
PCP: Dr. Hernandez
Web Communications Specialist: None prior to arrival
Impression:
Admitted with chest pain, abdominal pain, DOMINGO 08/20/24
NSTEMI
CAD
LM with minimal luminal irregularities, LAD medium caliber with diffuse 80% mid lesion and distal LAD decent bypass target, Diag-1 small caliber with diffuse severe atherosclerosis, Diag-2 medium caliber with diffuse up to 80% proximal stenosis and
possible bypass target, circumflex with subtotal occlusion in midportion and OM1 branch fills retrograde via left to left collaterals, RCA medium caliber and dominant vessel with RPDA and small RPLB by cath 08/22/24
Anaphylactic aspirin allergy
Elevated CRP
Type 2 diabetes
Peripheral vascular disease
Prior podiatric interventions
History of systemic lupus erythematosus
Essential hypertension
Echo 08/21/2024: EF 15 to 20% with severe global hypokinesis, mild MR
Patient with DOMINGO, abdominal pain and chest pain x4 days and Troponin 16.4 on admission 08/20/24 AM. Troponin peaked at 17.3 on 08/20/24 evening. ECG with nonspecific ST changes. Echo with EF 15%. Patient with aspirin allergy and aspirin
desensitization protocol attempted on 08/21/24 evening, patient was given aspirin 5 mg PO x1 at 1740 on 08/21/24 and eyes appeared swollen. Diphenhydramine 50 mg IV x1 given for eye swelling and then patient complained of left hand tremors which
improved with Ativan 0.5 mg IV x1. Aspirin desensitization therapy was stopped. Patient was loaded with Plavix 300 mg PO x1 on 08/22/24 AM and then had cath that revealed MV CAD. No additional doses of Plavix given. Aspirin desensitization therapy
ordered to be attempted again and CT surgery consulted. Patient's family requested transfer to [place]. Awaiting insurance auth as of 08/24/23 AM.
Plan:
-Difficult situation with ICM (EF 15-20%), MV CAD and ASA allergy
-Remains chest pain free and no evidence of decompensated HF based on history or physical exam
-Per family request plan is to hold off on second attempt at ASA desensitization and xfer to [facility]
-Hold Plavix in anticipation of CABG
-Cont heparin gtt while off anti-platelets
-Toprol XL resumed at lower dose, 25 mg daily
-Outpatient dose of lisinopril 20 mg daily has been continued
-Outpatient dose of Jardiance 25 mg daily was changed to Farxiga 10 mg daily due to formulary changes. Hospitalist attending is coordinating basal bolus dosing and sliding scale coverage of insulin
-Patient was not taking a statin prior to admission. AST 78 on admission and then improved to 73. ALT 64 on admission and then up to 73. LDL 105. New to Crestor 20mg daily 08/21/24. Follow LFTs.
-Appreciate help of CM who called [facility] on 08/24/24 and was told that we are awaiting insurance auth. Reviewed with patient and her that auth was likely delayed due to federal holiday on 08/23/24.
Discussed with patient's daughter Erika over speaker phone
Progress Note - Web Communications Specialist
Subjective
Date of Service: August 25, 2024
No acute overnight events. Patient resting comfortably in bed this morning. No further episodes of chest discomfort. No shortness of breath.
Objective
Labs:
08/24/24 05:15
08/25/24 04:54
Labs
Hgb 9.7 g/dL (12.0-16.0) L 08/24/24 05:15
Hct 30.9 % (37.0-47.0) L 08/24/24 05:15
Plt Count 203 10^3/uL (130-400) 08/24/24 05:15
APTT 108.0 Sec (23.4-35.0) H 08/25/24 04:54
Sodium 141 mmol/L (135-145) 08/25/24 04:54
Potassium 4.4 mmol/L (3.5-5.1) 08/25/24 04:54
BUN 14 mg/dl (7-17) 08/25/24 04:54
Creatinine 0.6 mg/dL (0.6-1.0) 08/25/24 04:54
Glucose 141 mg/dl (70-99) H 08/25/24 04:54
Vital Signs and I&O:
Vital Signs
Temp Pulse Resp BP Pulse Ox
98.5 F 75 20 112/60 98
08/25/24 07:23 08/25/24 06:00 08/25/24 07:23 08/25/24 04:30 08/25/24 07:23
Vital Signs
Temp Pulse Resp BP Pulse Ox
98.5 F 75 20 112/60 98
08/25/24 07:23 08/25/24 06:00 08/25/24 07:23 08/25/24 04:30 08/25/24 07:23
Intake & Output
08/23/24 08/24/24 08/25/24 08/26/24
06:59 06:59 06:59 06:59
Intake Total 556 / 556 840 / 840
Output Total 1700 / 1700
Balance -1144 / -1144 840 / 840
Physical Exam
Physical Exam
Gen: NAD, AAOx3
HEENT: NC/AT, sclera anicteric
Neck: No JVD
CV: RRR, NL s1/s2, no M/R/G
Lungs: CTAB
Abd: S/ND
Ext: No LE edema
Skin: Warm, dry
Neuro: Non-focal
[2024-08-25] MEDS: NOVOLOG FLEXPEN 16 UNITS SC ×2 (09:44→13:31)
[2024-08-25] MEDS: HEPARIN 25000 UNITS/250 ML IV (10:59)
[2024-08-25] MEDS: TYLENOL 650 MG PO (10:59)
--- NOTE | 2024-08-25 11:47 | CM ---
Chart reviewed. Patient is independent of ADLS, kiswahili speaking, lives with her in a [address], [facility], ambulates with a RW and SPC. Patient waiting for a bed at [facility]. Plan is for the patient to transfer to [facility] once a bed is available
--- NOTE | 2024-08-25 13:25 | W.PN.HOSP.TC ---
Addendum entered and electronically signed by Tiffanie Sauer MD 08/25/24 16:47:
I saw and evaluated the patient independently. I reviewed the resident�s note and agree with findings and plan as documented by Dr. Farmer.
GENERAL: well developed, well nourished, female in no apparent distress--KINYARWANDA SPEAKING ONLY
HEENT: NC/AT
HEART: regular rate and rhythm, +S1, +S2
LUNGS : clear to auscultation bilaterally
ABDOM: soft, nontender, nondistended, + bowel sounds
EXT: no cyanosis, clubbing, or edema
NEUROLOGIC: grossly intact
Chest pain--NSTEMI most likely with acute exacerbation (mild) of HFrEF--s/p cath with triple vessel disease and ECHO with EF 15-20% and need for CT surgery eval for CABG--cont IV heparin/lasix--apprec cards--pulm embolism ruled out with neg chest
CT--pericarditis/myocarditis ruled out as inflammatory markers although may be elevated from lupus-- endocarditis ruled out as blood cultures negative---asa desensitization did not go well and was stopped as reacted to 5 mg asa only--initial plan
was to move pt to ICU and try again but pt family requested transfer to [place]--I spoke with Dr. Riana Yanez, cardiology attending who accepted pt in transfer (disc with images being obtained for transfer)
Abdominal pain--resolved--described as burning in nature so reflux certainly a possibility, despite mildly elevated lipase doubt acute pancreatitis
Systemic lupus erythematosus --not followed by rheumatology--on prednisone 5 mg twice daily--no need for stress dose steroids at this time
Type 2 diabetes mellitus--continue insulin with basal bolus dosing and sliding scale coverage, hemoglobin A1c 7.6
Essential hypertension--continue lisinopril--patient states that she also takes metoprolol dose unknown 1 tablet at nighttime (?Toprol XL)--continue meds as able
anxiety--son says she is seen by Ashwini, obtained list of meds from pt/-
wounds (POA) --Slowly healing R 2nd toe tip, dry pink deep dermal vs healing full thickness with dry callus. No purulence. No erythema. Skin dry in areas on feet and heels. Dull red sacrum
DVT prophylaxis--already on IV heparin
CODE STATUS--full code
discharge to [place] when bed available
Original Note:
Today's Communication/Plan
-
Awaiting bed at [facility].
Assessment / Plan
Assessment / Plan
1. Nonspecific Chest Pain (Ischemic vs. Pericarditis vs. Endocarditis vs. Pulmonary Embolus)
- Presented with Left sided CP and ab pain that was pleuritic and worse with laying on right side. Resolved this morning.
- ESR and CRP markedly elevated on admission. Description of the pain is typical of pericarditis, but the location is not.
- CT of the chest repeated this morning, with IV contrast: No evidence of pulmonary embolism.
- Endocarditis is possible given the patient has been on antibiotics for approximately 3 weeks due to an infected second toe, but not likely.
- Troponin 16 on admission; EKG was not observed of ischemia, however CAD cannot be ruled out.
- Left Heart Cath yesterday. Per cards, patient not allergic to Plavix so if antiplatelet therapy is indicated, this would be the choice.
- Left Heart Cath reveal multivessel coronary disease. Cards opinion: ASA desensitization and CABG. Family requests transfer to [place] for advanced cardiac care.
- Transfer accepted by Dr. Riana Yanez; awaiting bed at [facility]. Awaiting prior authorization.
2. Abdominal Pain (resolved)
- Elevated lipase in ED (mild); doubt pancreatitis given presentation.
- Repeat lipase 1187, mild elevation from presentation 3 days ago/lack of true symptoms.
- Repeat lipase yesterday morning 881, downtrending. Will continue to monitor for symptoms and repeat lipase if pain returns.
3. Systemic Lupus Erythematosus
- Medications prescribed by PCP: prednisone 5mg BID.
- Elevated ESR/CRP at admission; it is possible that the inflammatory markers are elevated due to SLE flare irrespective of the patient's cardiac issues
- Pericarditis ruled out.
- CRP repeated today. 42, down from 143 on day of admission.
4. Type 2 DM
- Continue basal bolus insulin with Adama ALLEN
5. Essential HTN
- Continue Lisinopril
6. Diabetic Foot Infection
- Hold outpatient course of Levofloxacin 500 mg BID; concern for crossreactivity to ASA
7. ASA allergy
- While attempted to be densensitized to ASA, started to have swollen palpebra. Per protocol given IV benadryl, which caused another adverse reaction.
- Densitization protocol discontinued due to the above.
- Patient to continue with left heart cath; if antiplatelet therapy is indicated, Plavix will be used.
- Consider returning to ASA desensitization protocol if needed.
- Patient to be transferred to [place] to receive ASA desensitization protocol. Awaiting prior authirization.
Anticipated Discharge: Within 24 hours
Subjective/Interval History
-
Date of Service: August 25, 2024
Patient seen and examined while sitting up in bed and comfortable. Patient's is at bedside. Patient denies any acute complaints this morning. Awaiting transfer to [facility].
Objective Data
-
Labs:
Laboratory Results
08/25/24
04:54
APTT 108.0 H
Sodium 141
Potassium 4.4
Chloride 107
Carbon Dioxide 27
BUN 14
Creatinine 0.6
Glucose 141 H
Calcium 8.3 L
Vital Signs:
Vital Signs
Temp Pulse Resp BP Pulse Ox
98.7 F 79 20 118/64 97
08/25/24 11:51 08/25/24 11:00 08/25/24 11:51 08/25/24 09:02 08/25/24 11:51
I&O
08/24/24 08/25/24 08/26/24
06:59 06:59 06:59
Intake Total 840 / 840 400 / 400
Balance 840 / 840 400 / 400
Review of Systems
-
History Source: Patient
All other systems: Reviewed and negative
Physical Exam
-
General: Well Developed, Well Nourished, No Apparent Distress and Comfortable
HEENT: Normocephalic and Atraumatic
Respiratory: Clear to Auscultation
Cardiac: Regular Rhythm and S1/S2
GI: Soft and Nontender
Musculoskeletal: No Clubbing, No Cyanosis and No Edema
Skin: Warm and Dry
Neuro: Awake and Alert
Psych: Calm
[2024-08-25 13:31] LABS: Glucose - Point of Care 164 mg/dl (70-99)
[2024-08-25] MEDS: NOVOLOG FLEXPEN-LOW RESISTANCE 1 UNITS SC (13:31)
--- NOTE | 2024-08-25 14:04 | PTCARENOTE ---
Update given to [facility] transfer center. Awaiting bed availability. Pt has no complaints of CP/discomfort. Heparin gtt infusing at 15 ml/hr. Call olya w/in reach.
--- NOTE | 2024-08-25 15:41 | PN.CDI ---
CDI
- -
CDI:
Physician Documentation Request
Admit Date: 08/20/24 12:58
Dear Doctor Marleny,
Patient has received 20 mg IV lasix from 08/22-08/25
08/[address] impression 'Small bilateral pleural effusions'
08/[address] also noted small bilateral pleural effusions.
CT surgery consultation states '63 year old female admitted for NSTEMI/multivessel coronary disease and acute HFrEF (15-20%)...family seeking 2nd opinion at [facility]'
Please provide the diagnosis associated with the administration of lasix:
Pleural effusion
acute HFrEF
Other
Use of terms such as suspected, likely, concern for, or probable (associated with a specific diagnosis that is being evaluated, monitored, or treated as if it exists) are acceptable and can be coded in the inpatient setting, when documented at the
time of discharge.
Thank you,
Paola Cruz RN, BSN
CDI Specialist
tiger text
Please use your independent medical judgment in providing your response.
[2024-08-25 16:58] LABS: Glucose - Point of Care 106 mg/dl (70-99)
[2024-08-25] MEDS: NOVOLOG FLEXPEN SC (17:28)
[2024-08-25] MEDS: CRESTOR 20 MG PO (17:31)
[2024-08-25] MEDS: LANTUS 0.16 UNITS SC (17:32)
--- NOTE | 2024-08-25 21:19 | PTCARENOTE ---
Pt assessed with son @ bedside. A&Ox4. Pt denies pain. Moves all extremities x4. (+) sensation x4. PERRLA 3. Pt ambulated to bathroom and back with supervision. NSR on monitor. Trace edema to BLE. Resps easy and even. CTABL. Abd soft nontender. LBM
08/25. Pt urinating in toilet. Dsg to great toe CDI. Foam to sacrum CDI. Heparin infusing @ 1500units. No s/s of distress assessed. Will continue to monitor.
[2024-08-25 21:37] LABS: Glucose - Point of Care 129 mg/dl (70-99)
[2024-08-25] MEDS: ATARAX 25 MG PO (22:32)
[2024-08-26] MEDS: HEPARIN 25000 UNITS/250 ML IV (01:51)
[2024-08-26 02:04] VITALS: BP 123/69
[2024-08-26 02:10] VITALS: BMI 28.3
[2024-08-26 04:32] VITALS: BP 113/67
[2024-08-26 04:57] LABS: Hematocrit 34.7 % (37.0-47.0); Hemoglobin 10.7 g/dL (12.0-16.0); Mean Corp Hgb Conc. 30.8 g/dL (33.0-37.0); Mean Corpuscular Hgb 25.4 pg (27.0-31.0); Mean Corpuscular Volume 82.4 fL (81.0-99.0); Mean Platelet Volume 11.7 fL (7.4-10.4); Platelet Count 235 10^3/uL (130-400); Red Blood Cell Count 4.21 10^6/uL (4.20-5.40); Red Cell Dist. Width 14.4 % (11.5-14.5); White Blood Cell Count 7.3 10^3/uL (4.8-10.8)
[2024-08-26 05:01] LABS: APTT 102.4 Sec (23.4-35.0)
--- NOTE | 2024-08-26 06:13 | PTCARENOTE ---
Received call from tx center. Pt has a bed waiting for them at [facility]. Disc made along with copies of fpt file awaiting tx with pt. No change in pt status this shift. APTT therapuetic at 102.4. No change in gtt rate made. No s/s of distress assessed.
Will continue to monitor. Will pass along information to next shift regarding pt tx.
[2024-08-26 06:50] LABS: Erythrocyte Sed Rate 138 mm/hour (0-20)
[2024-08-26 07:20] VITALS: BP 115/81
[2024-08-26 07:33] LABS: Glucose - Point of Care 131 mg/dl (70-99)
[2024-08-26] MEDS: NOVOLOG FLEXPEN-LOW RESISTANCE SC (07:54)
[2024-08-26] MEDS: PLAQUENIL 200 MG PO (07:55)
[2024-08-26] MEDS: ZESTRIL 20 MG PO (07:55)
[2024-08-26] MEDS: PROTONIX IV 40 MG IV (07:55)
[2024-08-26] MEDS: NSS (PRESERVATIVE FREE) 10 ML IV (07:55)
[2024-08-26] MEDS: NEURONTIN 400 MG PO (07:56)
[2024-08-26] MEDS: FARXIGA 10 MG PO (07:56)
[2024-08-26] MEDS: CELEXA 20 MG PO (07:56)
[2024-08-26] MEDS: PEPCID 20 MG PO (07:56)
[2024-08-26] MEDS: TOPROL XL 25 MG PO (07:56)
[2024-08-26] MEDS: DELTASONE 5 MG PO (07:57)
[2024-08-26] MEDS: NOVOLOG FLEXPEN 8 UNITS SC (07:58)
--- NOTE | 2024-08-26 08:09 | PTCARENOTE ---
assessment stable as documented. Sacrum w foam dsg, R toes w DSD. Pending transfer to [facility], called daughter
[2024-08-26] MEDS: LASIX 20 MG IV (08:14)
[2024-08-26] MEDS: NEURONTIN 800 MG PO (08:14)
--- NOTE | 2024-08-26 09:18 | PTCARENOTE ---
full report given to [facility] nurse with pending transfer for 10 am
--- NOTE | 2024-08-26 10:43 | TRANSFER ---
Patient transferred to [facility] via EMT on hep gtt and Monitor. Family at bedside
--- NOTE | 2024-08-26 13:02 | W.PN.HOSP.TC ---
Addendum entered and electronically signed by Tiffanie Sauer MD 08/26/24 15:18:
I saw and evaluated the patient independently. I reviewed the resident�s note and agree with findings and plan as documented by Dr. Farmer.
GENERAL: well developed, well nourished, female in no apparent distress--FRISIAN SPEAKING ONLY
HEENT: NC/AT
HEART: regular rate and rhythm, +S1, +S2
LUNGS : clear to auscultation bilaterally
ABDOM: soft, nontender, nondistended, + bowel sounds
EXT: no cyanosis, clubbing, or edema
NEUROLOGIC: grossly intact
HAS BED AT [facility]--OK for D/C
Chest pain--NSTEMI most likely with acute exacerbation (mild) of HFrEF--s/p cath with triple vessel disease and ECHO with EF 15-20% and need for CT surgery eval for CABG--cont IV heparin/lasix--apprec cards--pulm embolism ruled out with neg chest
CT--pericarditis/myocarditis ruled out as inflammatory markers although may be elevated from lupus-- endocarditis ruled out as blood cultures negative---asa desensitization did not go well and was stopped as reacted to 5 mg asa only--initial plan
was to move pt to ICU and try again but pt family requested transfer to [facility]--I spoke with Dr. Riana Yanez, cardiology attending who accepted pt in transfer (disc with images being obtained for transfer)
Abdominal pain--resolved--described as burning in nature so reflux certainly a possibility, despite mildly elevated lipase doubt acute pancreatitis
Systemic lupus erythematosus --not followed by rheumatology--on prednisone 5 mg twice daily--no need for stress dose steroids at this time
Type 2 diabetes mellitus--continue insulin with basal bolus dosing and sliding scale coverage, hemoglobin A1c 7.6
Essential hypertension--continue lisinopril--patient states that she also takes metoprolol dose unknown 1 tablet at nighttime (?Toprol XL)--continue meds as able
anxiety--son says she is seen by Ashwini, obtained list of meds from pt/-
wounds (POA) --Slowly healing R 2nd toe tip, dry pink deep dermal vs healing full thickness with dry callus. No purulence. No erythema. Skin dry in areas on feet and heels. Dull red sacrum
DVT prophylaxis--already on IV heparin
CODE STATUS--full code
Original Note:
Today's Communication/Plan
-
.
Assessment / Plan
Assessment / Plan
1. Nonspecific Chest Pain (Ischemic vs. Pericarditis vs. Endocarditis vs. Pulmonary Embolus)
- Presented with Left sided CP and ab pain that was pleuritic and worse with laying on right side. Resolved this morning.
- ESR and CRP markedly elevated on admission. Description of the pain is typical of pericarditis, but the location is not.
- CT of the chest repeated this morning, with IV contrast: No evidence of pulmonary embolism.
- Endocarditis is possible given the patient has been on antibiotics for approximately 3 weeks due to an infected second toe, but not likely.
- Troponin 16 on admission; EKG was not observed of ischemia, however CAD cannot be ruled out.
- Left Heart Cath yesterday. Per cards, patient not allergic to Plavix so if antiplatelet therapy is indicated, this would be the choice.
- Left Heart Cath reveal multivessel coronary disease. Cards opinion: ASA desensitization and CABG. Family requests transfer to [place] for advanced cardiac care.
- Transfer accepted by Dr. Riana Yanez; patient to be transferred to [facility] today via ambulance.
2. Abdominal Pain (resolved)
- Elevated lipase in ED (mild); doubt pancreatitis given presentation.
- Repeat lipase 1187, mild elevation from presentation 3 days ago/lack of true symptoms.
- Repeat lipase yesterday morning 881, downtrending. Will continue to monitor for symptoms and repeat lipase if pain returns.
3. Systemic Lupus Erythematosus (chronic)
- Medications prescribed by PCP: prednisone 5mg BID.
- Elevated ESR/CRP at admission; it is possible that the inflammatory markers are elevated due to SLE flare irrespective of the patient's cardiac issues
- Pericarditis ruled out.
- CRP repeated today. 42, down from 143 on day of admission.
4. Type 2 DM
- Continue basal bolus insulin with Adama ALLEN
5. Essential HTN
- Continue Lisinopril
6. Diabetic Foot Infection
- Hold outpatient course of Levofloxacin 500 mg BID; concern for crossreactivity to ASA
7. ASA allergy
- While attempted to be densensitized to ASA, started to have swollen palpebra. Per protocol given IV benadryl, which caused another adverse reaction.
- Densitization protocol discontinued due to the above.
- Patient to continue with left heart cath; if antiplatelet therapy is indicated, Plavix will be used.
- Consider returning to ASA desensitization protocol if needed.
- Patient to be transferred to [place] to receive ASA desensitization protocol today via ambulance.
Anticipated Discharge: Today
Subjective/Interval History
-
Date of Service: August 26, 2024
Patient seen and examined at bedside this morning. and son are with her. Patient denies any Acute complaints this morning, specifically denies dizziness, chest pain, palpitations, shortness of breath, abdominal pain, lower extremity edema.
Patient scheduled to be transferred to [facility] via ambulance this morning at 10 am.
Objective Data
-
Labs:
Laboratory Results
08/26/24 08/26/24
04:29 04:31
WBC 7.3
Hgb 10.7 L
Hct 34.7 L
Plt Count 235
APTT 102.4 H
Vital Signs:
Vital Signs
Temp Pulse Resp BP Pulse Ox
98.1 F 76 18 115/81 98
08/26/24 07:20 08/26/24 08:00 08/26/24 07:20 08/26/24 07:20 08/26/24 07:20
I&O
08/25/24 08/26/24 08/27/24
06:59 06:59 06:59
Intake Total 840 / 840 1205 / 1205
Balance 840 / 840 1205 / 1205
Review of Systems
-
History Source: Patient
Constitutional: Reports No Symptoms
Respiratory: Reports No Symptoms
Cardiac: Reports No Symptoms
Abdomen/GI: Reports No Symptoms
Neuro: Reports No Symptoms
Physical Exam
-
General: Well Developed, Well Nourished and No Apparent Distress
HEENT: Normocephalic and Atraumatic
Respiratory: Clear to Auscultation
Cardiac: Regular Rhythm and S1/S2
GI: Soft and Nontender
Musculoskeletal: No Clubbing, No Cyanosis and No Edema
Skin: Warm
Neuro: Awake, Alert and Oriented
Psych: Calm
Data Reviewed
-
Labs: Labs Reviewed by me
--- NOTE | 2024-08-26 13:08 | W.DCSUMMARY ---
Addendum entered and electronically signed by Tiffanie Sauer MD 08/26/24 15:56:
Read, reviewed, and agree. See same day progress note for additional details. Time spent coordinating care, DC planning, review of DC plan of care with resident, transition of care, review of records in EMR, med rec, consults, notes, d/w
consultants, nursing, family, and CM = 32 minutes
Original Note:
Discharge Summary
Discharge Data
Date of Admission: 08/20/24
Date of Discharge: 08/26/24
Total time spent discharging patient (in min): 32
-
Pending Results: No
Hospital Course
Mrs. Leon is a 63-year-old female with a past medical history of systemic lupus erythematosus, insulin-dependent diabetes mellitus, peripheral vascular disease, diabetic neuropathy, hypertension and chronic steroid use who presented to the
emergency department at [facility] on 08/20/2024 with complaints of left-sided chest pain, left-sided abdominal pain, and epigastric pain for 4 days preceding arrival. in the emergency department, physical exam was largely benign. ESR and
CRP were moderately elevated, lipase was 947, and troponin was high at 16.4. EKG performed in the emergency department revealed normal sinus rhythm, left axis deviation, and inverted T waves that have replaced nonspecific T wave abnormalities in
the inferior leads. Of note the patient's also endorsed that the patient had an infected toe of her right foot 3 weeks ago for which she was taking antibiotics as prescribed by her art installer. Multiple etiologies exist for this pain
including ischemia as evidenced by elevated troponins, pericarditis/myocarditis as evidenced by elevated inflammatory markers, endocarditis possibly due to her right toe infection, or pulmonary embolism. The patient was admitted to the hospital to
be evaluated for each of the above.
Workup included a CT of the chest which showed no evidence of pulmonary embolism. Labs largely remained stable over the course of admission. The patient's lipase decreased over time. Inflammatory markers remained elevated however, this was
thought to be due to a concomitant SLE flare. An echocardiogram was performed which showed a left ventricle that was moderately dilated, severe global hypokinesis, mild mitral regurgitation, and a ventricular ejection fraction of 15 to 20%. A
catheterization was also performed to exclude coronary artery disease. This catheterization exhibited significant multivessel coronary artery disease and significantly elevated right left-sided filling pressures. It was recommended that the
patient consider coronary artery bypass grafting to multiple vessels. However, an important part of all of this was the fact that the patient was allergic to aspirin. Prior to the cardiac catheterization, aspirin allergy desensitization protocol
was attempted, however, initially the patient started to exhibit signs of angioedema. The patient was given a dose of IV Benadryl per protocol. However this resulted in a nonspecific extrapyramidal symptom and the protocol was suspended. The
patient and her family decided that they would like to be transferred to [facility] in order to undergo the aspirin desensitization as well as the multivessel coronary artery bypass grafting. Transfer was accepted by Dr. Riana Yanez at [facility].
After a few days waiting for a bed at [facility] and prior authorization, the patient was transferred via ambulance to the [facility] on 08/26/2024.
Discharge Plan
-
Patient Disposition: Acute Care Hospital
Condition: Fair
Discharge Orders:
Discharge Patient (As Directed); Ordered 08/22/24
Ordered By: Noé Farmer
Discharge Date and Time
Discharge Date/Time: 08/26/24 10:30
Print Language: [place]
== END 2024-08-26 10:30 | disposition short-term general hospital (02) | DRG 280 ==
LOC: IVU 12:58
PROVIDERS: Emergency Medicine; Internal Medicine Interventional Cardiology; Nurse Practitioner; ADMITTING PHYSICIAN Internal Medicine; CONSULT PHYSICIAN Internal Medicine Cardiovascular Disease; CONSULT PHYSICIAN Thoracic Surgery (Cardiothoracic Vascular Surgery); EMERGENCY PHYSICIAN Emergency Medicine; FAMILY PHYSICIAN Internal Medicine
PROC: 4A023N8 Measurement of Cardiac Sampling and Pressure, Bilateral, Percutaneous Approach (ICD-10-PCS; 2024-08-22)
PROC: B2161ZZ Fluoroscopy of Right and Left Heart using Low Osmolar Contrast (ICD-10-PCS; 2024-08-22)
PROC: B2111ZZ Fluoroscopy of Multiple Coronary Arteries using Low Osmolar Contrast (ICD-10-PCS; 2024-08-22)
DX: I21.4 Non-ST elevation (NSTEMI) myocardial infarction (principal); I50.21 Acute systolic (congestive) heart failure; Q25.48 Anomalous origin of subclavian artery; Z88.6 Allergy status to analgesic agent; M32.9 Systemic lupus erythematosus, unspecified; E11.40 Type 2 diabetes mellitus with diabetic neuropathy, unspecified; E11.51 Type 2 diabetes mellitus with diabetic peripheral angiopathy without gangrene; I51.4 Myocarditis, unspecified; F41.9 Anxiety disorder, unspecified; I25.10 Atherosclerotic heart disease of native coronary artery without angina pectoris
CPT/HCPCS: 71260; 71275; 74177; 80048; 80053; 80061; 82248; 82962; 83036; 83690; 84484; 85025; 85027; 85652; 85730; 86140; 86850; 86900; 86901; 87040; 93005; 93306; 93460; 96374; 97116; 97163; 97167; 97535; 99152; 99153; 99291; C1894; Q9950; Q9967

== ENCOUNTER 2024-11-30 09:55 | Emergency (ER) | payer OTHER, SELFPAY ==
[2024-11-30 10:02] VITALS: BP 116/72
--- NOTE | 2024-11-30 11:37 | ED.GENMED ---
History of Present Illness
General
Chief Complaint: Abdominal Pain
Source: patient and spouse
Exam Limitations: none
Time Seen by Provider: 11/30/24 11:05
Nursing documentation reviewed up to this point in time: agreed with
History of Present Illness
History of Present Illness:
Patient is a 64-year-old female with past with history of CAD /bypass surgery ([facility] [place]) hypertension insulin and diabetes lupus presents to the ER for abdominal pain. Has been at that assisting in translation reports patient has had pain to the
left upper quadrant for the past 3 months. Does come and go but is getting worse. She is very nauseous with this and has not been eating. As per , patient has lost a lot of weight in the past 3 months. He reports she used to be 174
pounds now she is 120 pounds. She does not eat because the pain.
She recently was diagnosed with C. difficile by her family doctor and still on medicine
Patient denies any urinary frequency urgency dysuria.
No alcohol use non-smoker
Past History
Past History
ED Past Medical History: Asthma, HTN, Hypercholesterolemia, IDDM, Psychiatric and Other (Cellulitis, diabetic neuropathy, peripheral vascular disease, lupus, chronic steroid use)
ED Past Surgical History: Orthopedic (right great toe amputation)
Social History
Tobacco: Non-smoker
Alcohol: None
Personal:
Living: with family
Review of Systems
Review of Systems
Allergies reviewed?: Yes
All Other Systems: ROS reviewed and negative except as documented in HPI and ROS
Constitutional: Reports weight loss; Denies fever, fatigue or chills
EENT: Reports no symptoms
Respiratory: Reports no symptoms
Cardiac: Reports no symptoms
ABD/GI: Reports abdominal pain and nausea; Denies vomiting, diarrhea, bloody stools or black stools
: Reports no symptoms; Denies dysuria, flank pain, incontinence, urgency or discharge
Musculoskeletal: Reports no symptoms
Skin: Reports no symptoms
Neurological: Reports no symptoms
Psychiatric: Reports no symptoms
Phy Exam
General Physical Exam
General Presentation: no apparent distress
General age: appears stated age
General Skin: warm and dry
General Habitus: normal
General Mental: alert
General Hydration: appears well hydrated
Cardiovascular Exam
Cardiovascular Exam: regular rate/rhythm, no murmur and normal peripheral pulses
Pulmonary Exam
Pulmonary Exam: lungs clear and no respiratory distress
Gastrointestinal Exam
Gastrointestinal Exam: non tender, soft and other (mild luq tender no guarding )
Neurological Exam
Neurological Exam: alert
Musculoskeletal Exam
Musculoskeletal Exam: full ROM
Skin Exam
Skin Exam: normal color and warm/dry
Psychiatric Exam
Psychiatric Exam: normal mood/affect
Course
Orders/Labs/Results
Orders:
Orders
11/30/24 11:28
Urinalysis Reflex To Culture Urgent
11/30/24 11:40
IV Insert/Care/Rem.- Treatment PRN
0.9% Sodium Chloride 1000 ml [Nss] 1,000 ml IV BOLUS
Ondansetron Injectable [Zofran] 4 mg IV NOW STA
11/30/24 12:11
CT Abd/pel W Iv And Oral Contr Urgent
Comment:
Reason For Exam: luq pain /nausea/weight loss
Iohexol [Omnipaque] See Protocol PO NOW STA
11/30/24 13:02
Amylase Urgent
Complete Blood Count/With Diff Urgent
Comprehensive Metabolic Panel Urgent
Lipase Urgent
Abnormal Lab Results
11/30/24
13:02
WBC 4.5 L 10^3/uL
(4.8-10.8)
MCH 25.5 L pg
(27.0-31.0)
MCHC 31.2 L g/dL
(33.0-37.0)
RDW 16.5 H %
(11.5-14.5)
MPV 10.8 H fL
(7.4-10.4)
Absolute Lymphs (auto) 1.1 L 10^3/uL
(1.2-3.4)
BUN 35 H mg/dl
(7-17)
Creatinine 1.1 H mg/dL
(0.6-1.0)
Glucose 125 H mg/dl
(70-99)
AST 38 H U/L
(14-36)
ALT 40 H U/L
(0-35)
Total Protein 9.2 H g/dl
(6.3-8.2)
Amylase 129 H U/L
(30-110)
Lipase 412 H U/L
(23-300)
11/30/24 13:02
11/30/24 13:02
Vital Signs
Initial and Last Documented VS:
Initial Vital Signs
Temp Pulse Resp BP Pulse Ox
98.5 F 78 16 116/72 98
11/30/24 10:02 11/30/24 10:02 11/30/24 10:02 11/30/24 10:02 11/30/24 10:02
Last Documented Vital Signs
Temp Pulse Resp BP Pulse Ox
97.8 F 70 20 116/86 98
11/30/24 14:00 11/30/24 14:00 11/30/24 14:00 11/30/24 14:00 11/30/24 14:00
MDM/Problems Addressed
MDM/Problems Addressed:
As documented patient is a 64-year-old female brought by for evaluation of abdominal pain left-sided and nausea for the past several months. Patient has had a decreased appetite because of this . She recently had C. difficile and though
the diarrhea has improved she is still on vancomycin. She denies any pain in her ribs or lung region. She denies any shortness of breath or trauma. Patient denies any urinary frequency urgency or dysuria. Patient complains of pain to the left
upper abdominal region.
On exam patient is mildly tender to left upper quadrant. Patient denies any fevers or white count is 4.5 her hemoglobin is stable she was dehydrated and given fluids here in the ER her LFTs are minimally elevated.
There is volume moderate stool .
On reexam patient is now feeling much better denies pain at this time on reexam abdomen soft and nontender.
discussed with patient/ she may take [id number] MiraLAX/increase water and liquids and closely follow-up with family doctor strict return precautions reviewed.
*Critical Care Note
Total Time (30-74mins, 75-104mins- exclusive of procedures): Not Applicable
ED Attending Note
-
Portions of this chart may have been created with voice recognition software.� Occasional wrong word or��sound alike� substitutions may have occurred due to the inherent limitations of voice recognition software.
Discharge Plan
Departure
Patient Disposition: Home (Routine Discharge)
Date of Disposition: 11/30/24
Time of Disposition: 18:06
Patient with high blood pressure during this ER visit?: No
Discharge Problem:
Abdominal pain
Instructions: Abdominal Pain
Prescriptions:
No Action
Jardiance 25 MG tablet
25 mg PO DAILY Qty: 0 0RF
gabapentin [Neurontin] 800 MG tablet
800 mg PO TID
gabapentin 400 MG capsule
400 mg PO TID
lisinopril 20 mg Tablet
20 mg PO DAILY
insulin glargine [Lantus U-100 Insulin] 100 unit/mL solution
45 unit SC QPM
insulin aspart U-100 [Novolog FlexPen U-100 Insulin] 100 unit/mL (3 mL) insulin pen
35 unit SC AC
acetaminophen 325 mg Tablet
650 mg PO Q4HPRN PRN (Reason: mild pain/DOMINGO/temp> 100.4F) Qty: 0 0RF
metoprolol succinate 100 mg Tablet Extended Release 24 Hr
100 mg PO DAILY
levofloxacin 500 mg tablet
500 mg PO DAILY
Rx Instructions:
makes her sick, so had a hard time taking it
alendronate 70 mg tablet
70 mg PO Q7D
citalopram 20 mg tablet
20 mg PO Daily
clonazepam 1 mg tablet
1 mg PO PRN (Reason: Anxiety)
famotidine 20 mg tablet
20 mg PO BID
Plaquenil 200 mg tablet
200 mg PO BID
Vistaril 25 mg capsule
25 mg PO QHS
prednisone 5 mg tablet
5 mg PO BID
Referrals:
Keli Hernandez MD [Family Provider] -
Activity Restrictions/Additional Instructions:
Follow-up with family doctor for continued evaluation of current symptoms.
Patient needs to drink more water. In addition patient was constipated please take [id number] MiraLAX
Increase diet high in fresh fruits and vegetables high-fiber diet.
Please review your labs with your family doctor
Return if any worsening of symptoms
Interventions
Interventions:
*Risk Screen - Suicide Last Done: 11/30/24 10:02
*General Assessment Last Done: 11/30/24 11:30
*Neglect/Abuse Screening Last Done: 11/30/24 10:02
*ED- Fall Risk Assessment Last Done: 11/30/24 11:30
LN-Qnsltu-Qxoffznohs Assessment Last Done: 11/30/24 11:30
Discharge Date and Time
Print Language: GERMAN
[2024-11-30 11:57] VITALS: BMI 21.3
[2024-11-30] MEDS: OMNIPAQUE 50 ML PO (13:00)
[2024-11-30] MEDS: ZOFRAN 4 MG IV (13:00)
[2024-11-30] MEDS: NSS 1000 IV (13:01)
[2024-11-30 13:09] LABS: % Basophils 0.7 % (0-2); % Eosinophils 0.9 % (0-6); % Immature Granulocytes 0.2 % (0-0.5); % Lymphocytes 24.7 % (20.5-51.1); % Neutrophils 67.5 % (42.2-75.2); Absolute Lymphocytes 1.1 10^3/uL (1.2-3.4); Absolute Monocytes 0.3 10^3/uL (0.1-0.6); Hematocrit 39.4 % (37.0-47.0); Hemoglobin 12.3 g/dL (12.0-16.0); Mean Corp Hgb Conc. 31.2 g/dL (33.0-37.0); Mean Corpuscular Hgb 25.5 pg (27.0-31.0); Mean Corpuscular Volume 81.6 fL (81.0-99.0); Mean Platelet Volume 10.8 fL (7.4-10.4); Nucleated Red Blood Cells % 0 %; Platelet Count 182 10^3/uL (130-400); Red Blood Cell Count 4.83 10^6/uL (4.20-5.40); Red Cell Dist. Width 16.5 % (11.5-14.5); White Blood Cell Count 4.5 10^3/uL (4.8-10.8)
[2024-11-30 13:23] LABS: ALT (SGPT) 40 U/L (0-35); AST (SGOT) 38 U/L (14-36); Albumin 4.5 g/dl (3.5-5.0); Alkaline Phosphatase 106 U/L (38-126); Amylase 129 U/L (30-110); Blood Urea Nitrogen 35 mg/dl (7-17); Calcium 9.7 mg/dl (8.4-10.2); Carbon Dioxide 29 mmol/L (22-30); Chloride 100 mmol/L (98-107); Estimated Creatinine Clearance 43 ml/min; Glucose 125 mg/dl (70-99); Lipase 412 U/L (23-300); Potassium 4.1 mmol/L (3.5-5.1); Sodium 142 mmol/L (135-145); Total Bilirubin 0.8 mg/dl (0.2-1.3); Total Protein 9.2 g/dl (6.3-8.2); eGFR 56.11
[2024-11-30 14:00] VITALS: BP 116/86
== END 2024-11-30 18:27 | disposition home or self-care (01) ==
LOC: EMR 09:55
PROVIDERS: Nurse Practitioner; EMERGENCY PHYSICIAN Emergency Medicine; FAMILY PHYSICIAN Internal Medicine
DX: R10.12 Left upper quadrant pain (principal); R11.0 Nausea; I25.10 Atherosclerotic heart disease of native coronary artery without angina pectoris; E11.40 Type 2 diabetes mellitus with diabetic neuropathy, unspecified; I10 Essential (primary) hypertension; J45.909 Unspecified asthma, uncomplicated; I73.9 Peripheral vascular disease, unspecified
CPT/HCPCS: 96374; 96361; 99284; 74177; 80053; 82150; 83690; 85025; Q9967

== ENCOUNTER → 2024-12-19 12:48 | Outpatient (REF) | payer OTHER, SELFPAY | LOC: HWRCS 12:48 | PROVIDERS: ATTENDING PHYSICIAN Internal Medicine Cardiovascular Disease; FAMILY PHYSICIAN Internal Medicine | DX: I25.5 Ischemic cardiomyopathy (principal) | CPT/HCPCS: 93306 ==

== ENCOUNTER → 2024-12-26 13:35 | Outpatient (REF) | payer OTHER, SELFPAY | LOC: DHVS 13:35 | PROVIDERS: ATTENDING PHYSICIAN Physician Assistant; FAMILY PHYSICIAN Internal Medicine | DX: I73.9 Peripheral vascular disease, unspecified (principal) | CPT/HCPCS: 93922; 93925 ==

== ENCOUNTER → 2025-01-08 13:11 | Outpatient (REF) | payer OTHER, SELFPAY | LOC: RAD 13:11 | PROVIDERS: ATTENDING PHYSICIAN Surgery Vascular Surgery; FAMILY PHYSICIAN Internal Medicine | DX: I73.9 Peripheral vascular disease, unspecified (principal) | CPT/HCPCS: 93922; 93925; 93970 ==

== ENCOUNTER 2025-01-20 14:55 | Inpatient (IN) | payer OTHER, SELFPAY ==
[2025-01-20] VITALS (7 sets, daily range): BP systolic 100–122; BP diastolic 52–66; BMI 23.1; BMI 24.6
--- NOTE | 2025-01-20 10:45 | ED.GENMED ---
History of Present Illness
<Gabriella Jones PA-C - Last Filed: 01/20/25 15:36>
General
Chief Complaint: Swelling
Source: patient, records and family
Exam Limitations: none
Time Seen by Provider: 01/20/25 10:35
History of Present Illness
History of Present Illness:
64yoF with a history of coronary artery disease s/p CABG in August 2024, CHF with EF of 20-25%, hypertension, hyperlipidemia, insulin dependent diabetes, and lupus presenting with her and daughter for evaluation of multiple complaints. She
reports pain in her left upper abdominal intermittently over the past several months. Pain seems to come and go every few days. She is unable to eat at times due to her pain and has lost about 50 pounds since the beginning of the year. She is
also having increasing bilateral leg swelling over the past several days with associated shortness of breath and orthopnea. She denies any chest pain.
Past History
<Gabriella Jones PA-C - Last Filed: 01/20/25 15:36>
Past History
ED Past Medical History: Asthma, HTN, Hypercholesterolemia, IDDM, Psychiatric and Other (Cellulitis, diabetic neuropathy, peripheral vascular disease, lupus, chronic steroid use)
ED Past Surgical History: Orthopedic (right great toe amputation)
Social History
Tobacco: Non-smoker
Alcohol: None
Personal:
Living: with family
Phy Exam
<Gabriella Jones PA-C - Last Filed: 01/20/25 15:36>
General Physical Exam
General Presentation: no apparent distress
General Skin: warm and dry
General Habitus: normal
General Mental: alert
ENT Exam
ENT Exam: normocephalic
Cardiovascular Exam
Cardiovascular Exam: regular rate/rhythm and other (3+ pitting edema in bilateral lower extremities)
Pulmonary Exam
Pulmonary Exam: no respiratory distress, no rhonchi, no stridor, no wheezing and other (Bibasilar rales)
Gastrointestinal Exam
Gastrointestinal Exam: soft, non distended and other (+LUQ tenderness. Abdomen soft, non-distended. No rebound or guarding.)
Neurological Exam
Neurological Exam: alert
[place] Coma Scale
Eye Opening: Spontaneous
Verbal Response: Oriented
Motor Response: Obeys Commands
GCS Total Score: 15
Skin Exam
Skin Exam: normal color and warm/dry
Psychiatric Exam
Psychiatric Exam: normal mood/affect
Scores
<Gabriella Jones PA-C - Last Filed: 01/20/25 15:36>
Heart Failure Risk
Heart Failure Risk Score: Not Applicable
Course
<Gabriella Jones PA-C - Last Filed: 01/20/25 15:36>
Orders/Labs/Results
Orders:
Orders
01/20/25 10:44
Electrocardiogram (*1) Urgent
Reason for Study: Shortness of Breath
EKG- Treatment ONCE
CR Chest - 2 Views Urgent
Comment:
Reason For Exam: SOB
US Abdomen Complete/Upper Urgent
Comment:
Reason For Exam: LUQ pain
01/20/25 13:32
COVID-19 Antigen Urgent
Source: Nasal Swab
Complete Blood Count/With Diff Urgent
Comprehensive Metabolic Panel Urgent
Lipase Urgent
NT-proBNP Urgent
Troponin I Urgent
Influenza A+B Rapid Molecular Urgent
YOVANI Source: Nasal Swab
Specimen Description:
01/20/25 14:06
CefTRIAXone [Rocephin] 1,000 mg IV NOW STA
Doxycycline [Vibramycin] 100 mg PO NOW STA
Furosemide [Lasix] 40 mg IV NOW STA
01/20/25 14:40
Admit/Transfer Patient As Directed
Co-Sign Provider:
Level of Care: Inpatient admission
Assign to:: Telemetry
Physician / Group: dean
Diagnosis: pneumonia
Reason for Telemetry: Acute Heart Failure
Date to Stop Telemetry: 01/23/25
Time to Stop Telemetry: 11:00
Reason for Hospitalization: pneumonia
CHF
Expected length of stay greater than two midnights?: Yes
ELOS- Estimated Length of Stay in days: 3
I certify the patient meets the requirements for IP care: Yes
PRN Pain Medication Management As Directed
May give lesser potent ordered pain med per pt: Yes
preference::
Protocol:: Medication orders for pain may be administered in a
manner that supports deferring to patient preference
when the pt is:
- Requesting an ordered lesser potent pain medication.
Least to most potent pain medications are defined
as: acetaminophen < NSAID < tramadol < opioids
(morphine, oxycodone, hydromorphone).
- Requesting a lesser dose of the same medication IF
ORDERED.
- Requesting a less intrusive route of administration
if both routes are prescribed by the provider (PO <
IV).
01/20/25 14:41
Code Status As Directed
Resuscitation Status: Full Code
01/20/25 14:54
Abdomen/Pelvis w Contrast CT [CT Abd/pelvis W Iv Cont] Stat
Comment:
Reason For Exam: abdominal pain
01/20/25 14:55
GASTROINTESTINAL CONSULT Routine
Consulting Provider: Terri Bowman
Was physician already notified: Yes
01/23/25 11:00
DC Protocol for Telemetry ONCE
Abnormal Lab Results
01/20/25
13:32
RBC 4.14 L 10^6/uL
(4.20-5.40)
Hgb 10.1 L g/dL
(12.0-16.0)
Hct 32.4 L %
(37.0-47.0)
MCV 78.3 L fL
(81.0-99.0)
MCH 24.4 L pg
(27.0-31.0)
MCHC 31.2 L g/dL
(33.0-37.0)
RDW 17.2 H %
(11.5-14.5)
MPV 11.0 H fL
(7.4-10.4)
Absolute Lymphs (auto) 0.9 L 10^3/uL
(1.2-3.4)
Lymphocytes % 19.4 L %
(20.5-51.1)
Monocytes % 10.1 H %
(1.7-9.3)
BUN 25 H mg/dl
(7-17)
Glucose 151 H mg/dl
(70-99)
ALT 37 H U/L
(0-35)
01/20/25 13:32
01/20/25 13:32
Vital Signs
Initial and Last Documented VS:
Initial Vital Signs
Temp Pulse Resp BP Pulse Ox
98.2 F 64 16 100/52 100
01/20/25 09:39 01/20/25 09:39 01/20/25 09:39 01/20/25 09:39 01/20/25 09:39
Last Documented Vital Signs
Temp Pulse Resp BP Pulse Ox
98.0 F 62 26 110/64 71
01/20/25 10:44 01/20/25 13:45 01/20/25 13:45 01/20/25 11:00 01/20/25 12:23
<Gerson Chung, DO - Last Filed: 01/20/25 13:28>
Orders/Labs/Results
Orders:
Orders
01/20/25 10:44
Electrocardiogram (*1) Urgent
Reason for Study: Shortness of Breath
EKG- Treatment ONCE
CR Chest - 2 Views Urgent
Comment:
Reason For Exam: SOB
US Abdomen Complete/Upper Urgent
Comment:
Reason For Exam: LUQ pain
01/20/25 13:32
COVID-19 Antigen Urgent
Source: Nasal Swab
Complete Blood Count/With Diff Urgent
Comprehensive Metabolic Panel Urgent
Lipase Urgent
NT-proBNP Urgent
Troponin I Urgent
Influenza A+B Rapid Molecular Urgent
YOVANI Source: Nasal Swab
Specimen Description:
01/20/25 14:06
CefTRIAXone [Rocephin] 1,000 mg IV NOW STA
Doxycycline [Vibramycin] 100 mg PO NOW STA
Furosemide [Lasix] 40 mg IV NOW STA
01/20/25 14:40
Admit/Transfer Patient As Directed
Co-Sign Provider:
Level of Care: Inpatient admission
Assign to:: Telemetry
Physician / Group: dean
Diagnosis: pneumonia
Reason for Telemetry: Acute Heart Failure
Date to Stop Telemetry: 01/23/25
Time to Stop Telemetry: 11:00
Reason for Hospitalization: pneumonia
CHF
Expected length of stay greater than two midnights?: Yes
ELOS- Estimated Length of Stay in days: 3
I certify the patient meets the requirements for IP care: Yes
PRN Pain Medication Management As Directed
May give lesser potent ordered pain med per pt: Yes
preference::
Protocol:: Medication orders for pain may be administered in a
manner that supports deferring to patient preference
when the pt is:
- Requesting an ordered lesser potent pain medication.
Least to most potent pain medications are defined
as: acetaminophen < NSAID < tramadol < opioids
(morphine, oxycodone, hydromorphone).
- Requesting a lesser dose of the same medication IF
ORDERED.
- Requesting a less intrusive route of administration
if both routes are prescribed by the provider (PO <
IV).
01/20/25 14:41
Code Status As Directed
Resuscitation Status: Full Code
01/20/25 14:54
Abdomen/Pelvis w Contrast CT [CT Abd/pelvis W Iv Cont] Stat
Comment:
Reason For Exam: abdominal pain
01/20/25 14:55
GASTROINTESTINAL CONSULT Routine
Consulting Provider: Terri Bowman
Was physician already notified: Yes
01/23/25 11:00
DC Protocol for Telemetry ONCE
Abnormal Lab Results
01/20/25
13:32
RBC 4.14 L 10^6/uL
(4.20-5.40)
Hgb 10.1 L g/dL
(12.0-16.0)
Hct 32.4 L %
(37.0-47.0)
MCV 78.3 L fL
(81.0-99.0)
MCH 24.4 L pg
(27.0-31.0)
MCHC 31.2 L g/dL
(33.0-37.0)
RDW 17.2 H %
(11.5-14.5)
MPV 11.0 H fL
(7.4-10.4)
Absolute Lymphs (auto) 0.9 L 10^3/uL
(1.2-3.4)
Lymphocytes % 19.4 L %
(20.5-51.1)
Monocytes % 10.1 H %
(1.7-9.3)
BUN 25 H mg/dl
(7-17)
Glucose 151 H mg/dl
(70-99)
ALT 37 H U/L
(0-35)
01/20/25 13:32
01/20/25 13:32
Vital Signs
Initial and Last Documented VS:
Initial Vital Signs
Temp Pulse Resp BP Pulse Ox
98.2 F 64 16 100/52 100
01/20/25 09:39 01/20/25 09:39 01/20/25 09:39 01/20/25 09:39 01/20/25 09:39
Last Documented Vital Signs
Temp Pulse Resp BP Pulse Ox
98.0 F 62 26 110/64 71
01/20/25 10:44 01/20/25 13:45 01/20/25 13:45 01/20/25 11:00 01/20/25 12:23
Procedures
<Gerson Chung DO - Last Filed: 01/20/25 13:28>
IV Access
Indication: RN unable to obtain and Physician skill needed
Performed by:: Gerson Chung DO
Site:: R arm
Gauge:: 20
Ultrasound Guidance: Yes
<Gabriella Jones PA-C - Last Filed: 01/20/25 15:36>
MDM/Problems Addressed
Differential Diagnosis Includes:
64yoF here with abd pain and weight loss x several months. Also having leg swelling and orthopnea. Multiple medical comorbidities including CAD, CHF, IDDM, lupus. She is non-toxic appearing. She appears volume overloaded on exam with peripheral
edema and bibasilar rales. Differential diagnosis includes but is not limited to: CHF exacerbation, peptic ulcer disease, pancreatitis, biliary colic
Initial ED plan: Check abdominal labs, troponin, BNP, EKG, CXR, and upper abdominal ultrasound.
<Gabriella Jones PA-C - Last Filed: 01/20/25 15:36>
*EKG
Interpreted by ED Provider?: Yes
EKG Intrepretation Date: 01/20/25
Heart Rate: 61
Rate: normal
Rhythm: sinus
[place]: left axis deviation
QRS Pattern: wide non-specific
Ischemia: T-wave inversion
*Critical Care Note
Total Time (30-74mins, 75-104mins- exclusive of procedures): Not Applicable
<Gabriella Jones PA-C - Last Filed: 01/20/25 15:36>
Update Note
Update Note:
Chest x-ray shows findings suggestive of pneumonia. White count is normal. COVID/flu testing added which are negative. BNP elevated >39050. Upper abdominal ultrasound shows possible passive hepatic venous congestion. Rocephin, doxycycline, and IV
Lasix ordered. Patient admitted for further evaluation and management.
ED Attending Note
<Gabriella Jones PA-C - Last Filed: 01/20/25 15:36>
-
Portions of this chart may have been created with voice recognition software.� Occasional wrong word or��sound alike� substitutions may have occurred due to the inherent limitations of voice recognition software.
<Gerson Chung DO - Last Filed: 01/20/25 13:28>
ED Attending Note
Patient seen and examined by attending physician: Yes
I performed the substantive portion of visit, reviewed & personally made and approve the management plan that is documented in note by myself or PERLA.: Yes
ED Attending Note:
I have seen and evaluated the patient with a [id number] encounter. I have spoken to the advance practicer provider and involved in the medical history, the physical exam, medical decision making.
Evaluation and management service: agree unless noted differently below.
Results interpretation: agree unless noted differently below.
Focused HPI: 64-year-old female presenting for evaluation of leg swelling and shortness of breath
Physical exam: Sitting in bed comfortably. Leg swelling noted. No tachypnea
Medical Decision Making: Chest x-ray concerning for multifocal pneumonia. Will start antibiotics. Will ultimately admit given her chronic comorbidities
Discharge Plan
Departure
Patient Disposition: Admit
Date of Disposition: 01/20/25
Time of Disposition: 14:19
Presentation/result/management discussed w/ accepting MD/DO: Hospitalist
Discharge Problem:
Acute exacerbation of CHF (congestive heart failure), Pneumonia, Left upper quadrant abdominal pain
Interventions
Interventions:
*Risk Screen - Suicide Last Done: 01/20/25 10:44
*General Assessment Last Done: 01/20/25 10:44
*Neglect/Abuse Screening Last Done: 01/20/25 10:44
*ED- Fall Risk Assessment Last Done: 01/20/25 10:44
*ED COVID-19 Vaccine History Last Done: 01/20/25 10:44
ED- Cardiac Assessment Last Done: 01/20/25 10:50
ED- Pulmonary Assessment Last Done: 01/20/25 10:50
ED-Skin Assessment Last Done: 01/20/25 10:50
--- NOTE | 2025-01-20 11:37 | VATNOTE ---
This RN went to Pt room at the request of Primary ED RN. Family refused this RN to place IV in patient without ultrasound machine. Primary ED nurse made aware at this time.
[2025-01-20 13:51] LABS: % Basophils 0.6 % (0-2); % Eosinophils 0.6 % (0-6); % Immature Granulocytes 0.4 % (0-0.5); % Lymphocytes 19.4 % (20.5-51.1); % Monocytes 10.1 % (1.7-9.3); % Neutrophils 68.9 % (42.2-75.2); Absolute Lymphocytes 0.9 10^3/uL (1.2-3.4); Absolute Monocytes 0.5 10^3/uL (0.1-0.6); Absolute Neutrophils 3.3 10^3/uL (1.4-6.5); Hematocrit 32.4 % (37.0-47.0); Hemoglobin 10.1 g/dL (12.0-16.0); Mean Corp Hgb Conc. 31.2 g/dL (33.0-37.0); Mean Corpuscular Hgb 24.4 pg (27.0-31.0); Mean Corpuscular Volume 78.3 fL (81.0-99.0); Nucleated Red Blood Cells % 0 %; Platelet Count 165 10^3/uL (130-400); Red Blood Cell Count 4.14 10^6/uL (4.20-5.40); Red Cell Dist. Width 17.2 % (11.5-14.5); White Blood Cell Count 4.8 10^3/uL (4.8-10.8)
[2025-01-20 13:52] LABS: ALT (SGPT) 37 U/L (0-35); AST (SGOT) 30 U/L (14-36); Albumin 3.5 g/dl (3.5-5.0); Alkaline Phosphatase 126 U/L (38-126); Blood Urea Nitrogen 25 mg/dl (7-17); Calcium 8.5 mg/dl (8.4-10.2); Carbon Dioxide 30 mmol/L (22-30); Chloride 105 mmol/L (98-107); Estimated Creatinine Clearance 47 ml/min; Glucose 151 mg/dl (70-99); Lipase 213 U/L (23-300); Potassium 3.6 mmol/L (3.5-5.1); Sodium 143 mmol/L (135-145); Total Bilirubin 0.7 mg/dl (0.2-1.3); Total Protein 7.4 g/dl (6.3-8.2); eGFR > 60.00
[2025-01-20 14:00] LABS: COVID-19 Antigen Negative (Negative)
[2025-01-20 14:04] LABS: NT-proBNP 13600 pg/ml; Troponin I < 0.012 ng/ml
--- NOTE | 2025-01-20 14:22 | HPS.HSE ---
Family Physician
-
Family Physician: Keli Hernandez
Chief Complaint
-
left sided abdominal pain
cough, sob, orthopnea, LE edema
History of Present Illness
64yoF with a history of coronary artery disease s/p CABG in August 2024, CHF with EF of 20-25%, hypertension, hyperlipidemia, insulin dependent diabetes, and lupus presenting with her and daughter for evaluation of epigastric abdominal pain
since the CABG 6 months. patient stated poor oral intake due to the abdominal pain. she was complaining of odynophagia and dysphagia. she was noted to have intermittent hemaemesis since the CABG. she also lost weight since the procedure. for past
one month noticed worsening LE edema, progressively worsening sob, which is worse at night. denied DOMINGO, dizzy or syncope. denied fever, chills, chest pain. denied dysuria or hematuria.
Chest x-ray with pneumonia and mild cardiomegaly. Patient was noted to have elevated BNP. Patient received IV ceftriaxone and Doxy and Lasix in ER. Admitted for further management.
Medical History
Past Medical History
Past Medical History: Reports Other
Additional Past Medical History:
Asthma
Hypertension
Hyperlipidemia
DM
Diabetic neuropathy
Peripheral vascular disease
Lupus
Past Surgical History: Reports Other
Additional Past Surgical History:
right great toe diabetic
Coronary artery bypass graft
Social History
Tobacco: Non-smoker
Alcohol: None
Drug: None
Personal:
Living: With Family
Family History
Family History: Not pertinent
Allergies / Home Medications
Allergies reflects when Allergies were last updated in [employer].
Home Medications with original date entered in [employer]
Allergy/Medication List:
Allergies
Allergy/AdvReac Type Severity Reaction Status Date / Time
aspirin Allergy Anaphylaxis Verified 01/20/25 09:38
Home Medications
empagliflozin 25 mg tablet (Jardiance) 25 mg PO DAILY Diabetes ##0 05/03/20
gabapentin 400 mg capsule 400 mg PO TID take with 800mg 05/09/21
gabapentin 800 mg tablet (Neurontin) 800 mg PO TID take with 400mg 05/09/21
insulin aspart U-100 100 unit/mL (3 mL) subcutaneous pen (Novolog FlexPen U-100 Insulin aspart) 35 unit SC AC Diabetes 11/27/22
insulin glargine 100 unit/mL subcutaneous solution (Lantus U-100 Insulin) 45 unit SC QPM Diabetes 11/27/22
lisinopril 20 mg tablet 20 mg PO DAILY Blood pressure 11/27/22
acetaminophen 325 mg tablet 650 mg (2 x 325 mg) PO Q4HPRN PRN mild pain/DOMINGO/temp> 100.4F #0 tabs 12/02/22
levofloxacin 500 mg tablet 500 mg PO DAILY 08/20/24
metoprolol succinate 100 mg tablet,extended release 24 hr 100 mg PO DAILY Heart Disease/Condition 08/20/24
Plaquenil 200 mg PO BID 08/23/24
Vistaril 25 mg PO QHS 08/23/24
alendronate 70 mg PO Q7D 08/23/24
citalopram 20 mg PO Daily 08/23/24
clonazepam 1 mg PO PRN Anxiety 08/23/24
famotidine 20 mg PO BID 08/23/24
prednisone 5 mg PO BID 08/23/24
Review of Systems
-
Constitutional: Reports No Symptoms
EENT: Reports No Symptoms
Respiratory: Reports Cough and Trouble Breathing
Cardiac: Reports No Symptoms
Abdomen/GI: Reports No Symptoms and Abdominal Pain
: Reports No Symptoms
Musculoskeletal: Reports No Symptoms
Skin: Reports No Symptoms
Neurological: Reports Weakness
Endocrine: Reports No Symptoms
Hematologic/Lymphatic: Reports No Symptoms
Psych: Reports No Symptoms
Physical Exam
Vital Signs
Vital Signs
Temp Pulse Resp BP Pulse Ox
98.0 F 62 26 110/64 71
01/20/25 10:44 01/20/25 13:45 01/20/25 13:45 01/20/25 11:00 01/20/25 12:23
Physical Exam
General: Well Developed, Well Nourished and No Apparent Distress
HEENT: NormoCephalic, Moist mucous membranes and Atraumatic
Respiratory: Clear
Cardiac: S1/S2, Regular Rhythm and Peripheral Edema (Bilateral lower extremity); No Murmur or Rub
GI: Soft, Non Tender, Non Distended and Normal Bowel Sounds; No Organomegaly
Rectal: Deferred by Provider
Musculoskeletal: No Clubbing, No Cyanosis and No Edema
Skin: No Rash
Neuro: AO x 3 and Nonfocal/grossly intact
Psych: Calm
Laboratory Results
-
01/20/25 13:32
01/20/25 13:32
Laboratory Results
Total Bilirubin 0.7 mg/dl (0.2-1.3) 01/20/25 13:32
AST 30 U/L (14-36) 01/20/25 13:32
ALT 37 U/L (0-35) H 01/20/25 13:32
Alkaline Phosphatase 126 U/L (38-126) 01/20/25 13:32
Troponin I < 0.012 ng/ml 01/20/25 13:32
Lipase 213 U/L (23-300) 01/20/25 13:32
Data Reviewed
-
Diagnostic Radiology: Report Reviewed by me
Lab Data: Labs Reviewed by me
Impression/Plan
-
# Pneumonia
- COVID flu negative
- Rocephin/Doxy continued
- Tylenol as needed for fever or pain
- Chest x-ray with impression of new left and progressed right lower lobe pneumonia. Pleural thickening on the right cannot be excluded. Clinical and laboratory correlation recommended.
# Acute exacerbation of CHF
-BNP.1 3600
- Lasix continued
-spironolactone continued
- Strict ACOSTA
- Daily weight
- Fluid restriction
- Obtain echo
-Chest x-ray with new mild cardiomegaly
-recent ECHO with EF of 20-25%
#left epigastric pain associated with odynophagia, dysphagia and hematemesis unclear cause
-US with Mild to moderate diffuse liver disease (possibly passive hepatic venous congestion). No sonographic evidence for biliary obstruction or ascites. Previous cholecystectomy.
-obtain CT abdomen pelvis
-IV PPI
-GI consulted
-speech consulted
# Anemia likely chronic disease
- Hemoglobin stable at 10.1
- No active bleeding
- Continue to monitor
#Systemic lupus erythematosus
- Prednisone continue
#Type 2 diabetes mellitus
- Sliding scale
- CHO diet
-Lantus 20 units at bedtime
#Essential hypertension
# Hyperlipidemia
-continue lisinopril
- Statin continued
#possible atrial fib
-EKG with NSR
-on amiodarone, metoprolol
# Recent CAD status post coronary artery bypass graft
- Plavix continued
#anxiety
- Citalopram
#DVT prophylaxis
-scd
CODE STATUS--full code
[2025-01-20] MEDS: LASIX 40 MG IV (14:26)
[2025-01-20] MEDS: VIBRAMYCIN 100 MG PO ×2 (14:26→22:38)
[2025-01-20] MEDS: ROCEPHIN 1000 MG IV (14:26)
--- NOTE | 2025-01-20 15:32 | W.PN.UPDATE ---
Update Note
Progress Note Update
This is an addendum to H&P written by Mirtha Tom on 01/20/2025.� Patient seen examined independently with FEED RESEARCH TECHNICIAN.
64-year-old female past medical history of CAD status post CABG in August 2024, HFrEF, lupus erythematosus, type 2 diabetes, peripheral vascular disease, diabetic neuropathy, hypertension, presenting with multiple complaints including left upper
abdominal pain over the past several months worse with eating as well as nausea and vomiting symptoms with blood, weight loss, sensation of food getting stuck in her esophagus since starting several new cardiac medications after CABG in August.
Increased bilateral lower extremity swelling and shortness of breath orthopnea.� No chest pain.�
No blood in the stool.� Sometimes has diarrhea or constipation.
Vital signs normal.� Labs show cardiac BNP of 13,000.� Chest x-ray shows new left and progressive right lower lobe pneumonia, cardiomegaly.� COVID and flu negative.
Abdominal ultrasound shows mild to moderate diffuse liver disease.
Patient with acute CHF exacerbation as well as community-acquired pneumonia possibly aspiration related.� There is also concern for dysphagia, hematemesis and weight loss unclear if esophagitis versus motility disorder versus esophageal mass.
40 IV Lasix daily.� Cardiology consulted.� Ceftriaxone, doxycycline.�
Check CT abdomen pelvis.� Protonix 40 daily.� Speech and swallow.�GI consulted as may require esophagram versus endoscopy.
Unclear why on amiodarone.�
--- NOTE | 2025-01-20 15:49 | W.PN.UPDATE ---
Update Note
Progress Note Update
patient received IV medication via IV which blew administration of abx. IV team unable to establish picc line after 2 attempts. we are changing all mediation to oral.
--- NOTE | 2025-01-20 15:53 | VATNOTE ---
Attempted to place 4FR SL Midline both arms, able to cannulate the vein but able to thread the wire in both arms. Pt. tawanna. well, technical staff assistant aware.
--- NOTE | 2025-01-20 16:02 | CM ---
CM met with pt, spouse/Can, dtr/Mik and son/Nicholas
Pt resides with her spouse in a rancher with 4STE
She si typically indep with use of a WW or SPC
Of recent, has been self propelling a W/C throughout the home
1 person assist for transfers
Pt has hx with [facility]
PCP- Keli Hernandez
Rx- [facility]
Discharge Disposition- home, follow for needs
--- NOTE | 2025-01-20 17:09 | PTCARENOTE ---
pt arrived on unit, pulled over from stretcher to bed, VS WNL. Pt luxembourgish speaking, desulfurizer operator phone in room. currently translating. Call dobson within reach. Will continue to monitor.
[2025-01-20 17:55] LABS: Glucose - Point of Care 117 mg/dl (70-99)
[2025-01-20] MEDS: NOVOLOG FLEXPEN-HIGH RESISTANCE SC (18:05)
[2025-01-20] MEDS: TIGAN 200 MG IM (18:08)
[2025-01-20] MEDS: LASIX 40 MG PO (18:08)
[2025-01-20] MEDS: PROTONIX 40 MG PO (18:08)
[2025-01-20] MEDS: AUGMENTIN 875 MG/125 MG 1 TABLET PO (20:49)
[2025-01-20] MEDS: HEPARIN 5000 UNITS SC (20:50)
[2025-01-20 21:42] LABS: Glucose - Point of Care 186 mg/dl (70-99)
[2025-01-20] MEDS: LANTUS 0.2 UNITS SC (22:38)
[2025-01-20] MEDS: NEURONTIN 800 MG PO (22:50)
[2025-01-21] VITALS (7 sets, daily range): BP systolic 105–129; BP diastolic 59–68; PULSE 64; O2SAT 93; BMI 25.6
[2025-01-21 05:59] LABS: Hematocrit 34.2 % (37.0-47.0); Hemoglobin 10.4 g/dL (12.0-16.0); Mean Corp Hgb Conc. 30.4 g/dL (33.0-37.0); Mean Corpuscular Hgb 23.9 pg (27.0-31.0); Mean Corpuscular Volume 78.4 fL (81.0-99.0); Platelet Count 146 10^3/uL (130-400); Red Blood Cell Count 4.36 10^6/uL (4.20-5.40); Red Cell Dist. Width 17.1 % (11.5-14.5); White Blood Cell Count 4.3 10^3/uL (4.8-10.8)
[2025-01-21 06:21] LABS: Blood Urea Nitrogen 27 mg/dl (7-17); Calcium 8.4 mg/dl (8.4-10.2); Carbon Dioxide 27 mmol/L (22-30); Chloride 106 mmol/L (98-107); Estimated Creatinine Clearance 47 ml/min; Glucose 161 mg/dl (70-99); Magnesium 2.2 mg/dl (1.6-2.3); Sodium 142 mmol/L (135-145); eGFR > 60.00
[2025-01-21 06:49] LABS: TSH Reflex To Free T4 3.62 uIU/ml (0.47-4.68)
[2025-01-21 08:19] LABS: Glucose - Point of Care 126 mg/dl (70-99)
[2025-01-21] MEDS: PROTONIX 40 MG PO (08:29)
[2025-01-21] MEDS: LASIX 40 MG PO ×2 (08:30→15:55)
[2025-01-21] MEDS: KCL 10 MEQ PO (08:30)
[2025-01-21] MEDS: TOPROL XL 25 MG PO (08:31)
[2025-01-21] MEDS: PACERONE 200 MG PO (08:31)
[2025-01-21] MEDS: LIPITOR PO (08:32)
[2025-01-21] MEDS: HEPARIN 5000 UNITS SC ×2 (08:32→22:32)
[2025-01-21] MEDS: ALDACTONE 12.5 MG PO (08:34)
[2025-01-21] MEDS: AUGMENTIN 875 MG/125 MG 1 TABLET PO (08:34)
[2025-01-21] MEDS: VIBRAMYCIN 100 MG PO (08:35)
[2025-01-21] MEDS: PLAVIX 75 MG PO (08:35)
[2025-01-21] MEDS: NOVOLOG FLEXPEN-HIGH RESISTANCE 1 UNITS SC ×2 (08:38→12:03)
--- NOTE | 2025-01-21 09:18 | PTOTSP ---
SPEECH THERAPY SWALLOW EVALUATION:
Patient exhibits clinical signs of pharyngeal dysphagia, likely chronic given chronicity of symptoms including weight loss, pharyngeal stasis, and coughing during solid texture intake. Patient endorsed symptoms began s/p CABG in August 2024,
suspicious for Recurrent Laryngeal Nerve involvement. Vocal quality clear at this time. Recommend instrumental assessment of swallowing to further assess swallowing function; Recommend VSE and/or FEES. Recommend cautious IDDSI Level 6 Soft and Bite
Size diet, thin liquids until instrumental assessment of swallowing. Meds whole with liquid as best tolerated. Aspiration precautions: Supervision during meals to assess for signs of aspiration; Upright positioning; Small sips/bites; Slow rate;
Monitor for signs of aspiration and d/c oral diet if any decline in mental or respiratory status. ST to follow with additional recommendations following VSE/FEES results.
RECOMMEND:
1) IDDSI Level 6 Soft and bite size diet, thin liquids
2) Meds whole with liquid as best tolerated
3) Aspiration precautions: Supervision during meals to assess for signs of aspiration; Upright positioning; Small sips/bites; Slow rate; Monitor for signs of aspiration and d/c oral diet if any decline in mental or respiratory status
4) VSE (for Monday 01/22) and/or FEES
5) ST to follow with additional recommendations following VSE/FEES results
--- NOTE | 2025-01-21 10:16 | CON.GI ---
Consultation
-
Date/Time Consultation Requested: 01/21/2025
Date/Time Consultation Performed: 01/21/2025
Requesting Provider:
Performing Provider:
Reason for Consultation: weight loss, dysphagis
Medical History
Chief Complaint / HPI
Chief Complaint: weight loss, dysphagia
History of Present Illness:
This is a 64 year old female with a history of coronary artery disease s/p CABG in August 2024, CHF with EF of 20-25%, hypertension, hyperlipidemia, insulin dependent diabetes, peripheral vascular disease, diabetic neuropathy and lupusand was
admitted from 07/31/2025 to 08/26/2024 at for symptoms of abdominal pain and chest pain and had undergone workup and was diagnosed with significant multivessel CAD and since she had allergy to aspirin had aspirin desensitization but family wanted
her transferred to [place] for CABG on 08/26/2024 she was transferred to [place].� She also had a visit to the ER in November and was diagnosed with pneumonia and treated with antibiotics.� She also had a toe amputation while she was at [place] in August and had
a month-long stay at [place] recovering.� She now presents with symptoms of lower extremity edema with shortness of breath and has been diagnosed with pneumonia and a CHF exacerbation and currently receiving treatment for that.� She also has been
having symptoms of left-sided abdominal pain especially worsening since August after her CABG and also has been having symptoms of decreased appetite with dysphagia and has had almost a 60 pound weight loss over the past 6 months especially since
the surgery.� I obtained the history from talking to her daughter Erika over the telephone.� She does have constipation. There was no rectal bleeding or melena reported she has never had a colonoscopy or endoscopy in the past.� She has been
eating very small meals with no appetite.� She did have a CT this admission which was negative for neoplasm but was done without contrast but in November during her visit to the ER she did have a CT abdomen and pelvis with contrast which also was
negative for neoplasm
Past Medical History
Past Medical History: Other (Asthma, Hypertension, Hyperlipidemia, DM, Diabetic neuropathy, Peripheral vascular disease, Lupus, CAD s/p CABG 08/2024, CHF, PNA)
Past Surgical History: Other (right great toe amputation 08/2024, Coronary artery bypass graft 08/2024 at [facility])
Social History
Tobacco: Non-Smoker
Alcohol: None
Drug: None
Personal:
Living: With Family
Family History
Family History: Reviewed & Not Pertinent
Allergies / Home Medications
Allergy/AdvReac Type Severity Reaction Status Date / Time
aspirin Allergy Anaphylaxis Verified 01/20/25 09:38
�Medication �Instructions �Recorded
gabapentin 800 mg tablet 800 mg PO DAILYPRN PRN nerve pain 05/09/21
(Neurontin)
insulin aspart U-100 100 unit/mL 25 unit SC AC Diabetes 11/27/22
(3 mL) subcutaneous pen (Novolog
FlexPen U-100 Insulin aspart)
insulin glargine 100 unit/mL 35 unit SC HS Diabetes 11/27/22
subcutaneous solution (Lantus
U-100 Insulin)
acetaminophen 325 mg tablet 650 mg (2 x 325 mg) PO Q4HPRN PRN 12/02/22
mild pain/DOMINGO/temp> 100.4F #0 tabs
amiodarone 200 mg tablet 200 mg PO DAILY Arrhythmia 01/20/25
atorvastatin 40 mg tablet 40 mg PO DAILY High Cholesterol 01/20/25
citalopram 20 mg tablet 20 mg PO DAILY Mental 01/20/25
Health/Anxiety
clopidogrel 75 mg tablet 75 mg PO DAILY Blood Clot 01/20/25
Prevention/Tx
famotidine 40 mg tablet 40 mg PO DAILY Gastrointestinal 01/20/25
Issue
furosemide 40 mg tablet 40 mg PO DAILY Fluid 01/20/25
Retention/Swelling
metoprolol succinate 25 mg 25 mg PO DAILY Heart 01/20/25
tablet,extended release 24 hr Disease/Condition
potassium chloride 10 mEq 10 meq PO DAILY Electrolyte 01/20/25
capsule,extended release Repletion
spironolactone 25 mg tablet 12.5 mg PO DAILY Fluid 01/20/25
Retention/Swelling
Review of Systems
-
All other systems: A 12 pt ROS was Negative except as stated above in HPI
Vital Signs
Temp Pulse Resp BP Pulse Ox
98.7 F 68 17 111/65 93
01/21/25 07:00 01/21/25 08:34 01/21/25 07:00 01/21/25 08:34 01/21/25 07:00
Physical Exam
Exam
General: No Apparent Distress
HEENT: Normocephalic
Respiratory: Clear
Cardiac: S1/S2
GI: Soft, Non Distended, Normal Bowel Sounds and Tender (mild tenderness in LUQ)
Results
WBC 4.3 10^3/uL (4.8-10.8) L 01/21/25 04:47
Hgb 10.4 g/dL (12.0-16.0) L 01/21/25 04:47
Hct 34.2 % (37.0-47.0) L 01/21/25 04:47
MCV 78.4 fL (81.0-99.0) L 01/21/25 04:47
Plt Count 146 10^3/uL (130-400) 01/21/25 04:47
Absolute Neuts (auto) 3.3 10^3/uL (1.4-6.5) 01/20/25 13:32
Sodium 142 mmol/L (135-145) 01/21/25 04:46
Potassium 4.0 mmol/L (3.5-5.1) 01/21/25 04:46
Chloride 106 mmol/L (98-107) 01/21/25 04:46
Carbon Dioxide 27 mmol/L (22-30) 01/21/25 04:46
BUN 27 mg/dl (7-17) H 01/21/25 04:46
Creatinine 1.0 mg/dL (0.6-1.0) 01/21/25 04:46
Calcium 8.4 mg/dl (8.4-10.2) 01/21/25 04:46
Total Bilirubin 0.7 mg/dl (0.2-1.3) 01/20/25 13:32
AST 30 U/L (14-36) 01/20/25 13:32
ALT 37 U/L (0-35) H 01/20/25 13:32
Alkaline Phosphatase 126 U/L (38-126) 01/20/25 13:32
Lipase 213 U/L (23-300) 01/20/25 13:32
Diagnostic Image Results:
01/20/25 CT Abd/pelvis Wo Iv Cont
IMPRESSION:
Mild ascites. New.
Findings suggesting moderate volume overload or third spacing. New.
Limited exam without oral and IV contrast.
Too small to characterize hypodense left renal lesion likely a benign cyst. Stable.
Moderate fecal material throughout the colon. Progressed
Mild diverticulosis. Stable
Findings suggesting mild bibasilar pulmonary fibrosis. Stable
01/20/25 US abdomen
IMPRESSION:
1. Mild to moderate diffuse liver disease (possibly passive hepatic venous congestion).
2. No sonographic evidence for biliary obstruction or ascites.
3. Previous cholecystectomy.
11/30/24 CT Abd/pel W Iv And Oral Contr
IMPRESSION:
No focal intrinsic abnormality of the left upper quadrant abdominal soft tissues.
Symmetric renal excretion. Small simple left renal cyst.
Prior cholecystectomy.
Unremarkable appendix.
No intestinal obstruction or free air. Evaluation of large bowel limited by moderate volume stool.
Prior GI Procedures:
EGD: none
Colonoscopy: none
Assessment / Plan
-
1. Dysphagia to mostly solid food especially worsened since the surgery. Could have possible underlying Schatzki's ring or less likely neoplasm or peptic stricture there was no obvious neoplasm noted on CT abdomen and pelvis. Continue PPI. when
medically stable will schedule her for endoscopy. Will schedule her for an upper GI for tomorrow in the interim
2. Also has chronic abdominal pain mostly left upper quadrant especially worsened also since August after her CABG and also has been having loss of appetite with over 60 pound weight loss. This may be multifactorial from her illness especially
since she had a prolonged hospital stay after her CABG in August at [place] and also required a toe amputation during that visit and apparently also had cardiac arrest ? post op/intraop during that admission with ileus and required NG tube placement
per her daughter. She appears overall deconditioned and loss of appetite could also be related to possible diabetic gastroparesis with early satiety. As described above 2 recent [address]s 1 in November with contrast in 1 this admission without contrast
were negative for any obvious neoplasm. Will need an eventual endoscopy and colonoscopy which we can schedule either as inpatient or outpatient once she is more medically stable currently being treated for CHF exacerbation and pneumonia
3. She also has constipation and has retained stool noted on CT scans started on MiraLAX twice daily with senna as needed
4. She also has minimal ascites noted on imaging and also has mildly elevated ALT and possible hepatic congestion noted on ultrasound which may be related to CHF, no obvious evidence of cirrhosis noted and could also have possible MAFLD.
Over 60 minutes spent reviewing the chart extensively her recent admissions were reviewed extensively including her labs and imaging, fundraising consultant notes, discharge summary and also discussing with patient and daughter
Total Time Spent with Patient (in minutes): Over 60 minutes spent reviewing the chart extensively
Data Reviewed
-
CT Scan: Report Reviewed by me
Ultrasound: Report Reviewed by me
Time spent with patient (in minutes): Over 60 minutes spent reviewing the chart extensively
-
-
Thank you for consultation and allowing me to participate in the patient's care. Please call the agronomy supervisor GI physician during the after hours with any questions or concerns.
[2025-01-21 11:38] LABS: Glucose - Point of Care 107 mg/dl (70-99)
--- NOTE | 2025-01-21 12:34 | W.PN.HOSP.TC ---
Addendum entered and electronically signed by Yazmin Luke MD, Resident 01/21/25 16:05:
Dictation error-
Partial amputation of right 2nd and 3rd toe
Current right great toe - mildly erythematous, no edema, or local rise of temperature.
Addendum entered and electronically signed by Valentin Callahan MD 01/21/25 15:29:
Seen and examined by me independently in collaboration with the medical insurance clerk.
Lab data and imaging data reviewed.
Addendum as below :
Patient is Filipino-speaking. Son at bedside who is the it project manager.
Son already sees improvement with her breathing and the lower extremity edema.
Patient presentation first for gradual increase in lower extremity edema, orthopnea and shortness of breath without chest pain. Today she is not on oxygen. She has few crackles in the left base. Data including lab and imaging noted. Clinical
concern is of acute heart failure. Patient noted to have reduced EF. Consult cardiology. Continue with diuresis-switch to IV once IV access is obtained.
There is element of abdominal discomfort emesis and? Hematemesis. H&H is stable. CT of the abdomen pelvis without IV contrast shows mild ascites and moderate volume overload/third spacing which might be the cause of her symptoms. Continue
diuresis and follow abdominal complaints. GI following.
Total time spent on today's encounter was 52 minutes which included time spent in counseling the patient/family regarding diagnosis and treatment plan as listed above, goals of care, and symptom management. Case was discussed with nursing staff,
specialists, and care coordinators/case management. All labs and imaging personally reviewed by me. Remainder the time spent in detailed review of previous records, lab data, imaging, and other medical provider documentation.
Original Note:
Today's Communication/Plan
-
Insulin Lantus and aspart to home dosing, resume IDDSI 6 diet.
Continue metoprolol, and spironolactone.
IR consulted for PICC line placement.
Will switch to IV Lasix once PICC line accessed.
Continue monitoring weights, I's and O's, blood sugars, and patient on telemetry.
Assessment / Plan
Assessment / Plan
[id number]-old female with PMHx significant for coronary artery disease s/p CABG in September 16, HFrEF with EF of 20 to 25%, IDDM, hyperlipidemia, SLE, peripheral vascular disease, asthma, hypertension, diabetic neuropathy presents to the ""hospital for evaluation of a single episode of hematemesis, worsening shortness of breath and weight loss per family. Admitted to hospital for acute decompensated heart failure and hematemesis evaluation.
Plan-
Acute exacerbation of CHF-
proBNP on admission-[id number].
Failed IV access and PICC line/midline upon admission.
Consulted IR for PICC line placement, appreciate IR help.
Currently she remains on oral Lasix, spironolactone.
Continue metoprolol succinate ER 25 mg.
Chest x-ray evident for mild cardiomegaly
ECHO -11/22 -HFrEF with EF of 20 to 25%, global hypokinesis with septal akinesis, severe TR with PASP elevated to 63, moderate MR.
Cardiology consulted for inputs on additional GDMT and evaluation of new onset right-sided heart failure.
Strict I's and O's, weights trending up-at 144.
Dry weight from [employer]-11/30/24-120 pounds.
Possible left-sided pneumonia-
Personally known pneumonia appreciated on chest x-ray.
Obtain procalcitonin, if procalcitonin negative-discontinue antibiotics.
Bibasilar interstitial lung disease on the chest CT-parosmia, dysgeusia, ILD findings likely secondary from amiodarone.
No left-sided pneumonia
odynophagia, dysphagia, hematemesis-
Patient was made n.p.o. overnight, speech and GI consulted. Speech therapy evaluated the patient and advance diet to IDDSI 6. And thin liquids.
Recommended video swallow study in the a.m. tomorrow.
GI consulted, recommended barium swallow esophagogram given patient's acute heart failure exacerbation.
Once stabilized, GI to consider upper GI endoscopy and colonoscopy.
Obtain Hemoccult to ensure no bleeding SD.
epigastric pain -
Suspect secondary to congestive hepatopathy from right heart failure.
Normocytic anemia-
Likely from anemia of chronic disease versus acute hematemesis.. Hemoglobin stable at 10.4
Trend H&H. Transfuse if less than 7.
Type 2 diabetes mellitus-
Patient put on Lantus 20 units at bedtime.
Switch to home Lantus today as diet is advanced.
Continue insulin basal bolus regimen.
SLE-
Continue prednisone.
Essential hypertension-
Continue lisinopril.
Hyperlipidemia-
Continue statin.
Possible A-fib-
Patient on amiodarone, not on any anticoagulation.
Unclear if A-fib, EKG and telemetry-normal sinus rhythm.
Hold amiodarone for now
Cardiology consult.
Peripheral neuropathy-
Continue gabapentin.
History of GERD-
Continue famotidine.
Recent CABG-
On Plavix, continue Plavix.
Anxiety/depression-
Continue citalopram 20 mg.
DVT prophylaxis-
Continue SCD
CODE STATUS-
Full code
Anticipated Discharge: > 48 hours
Subjective/Interval History
-
Date of Service: January 21, 2025
Patient is Filipino-speaking. Unfortunately there is no translation iPad or translation services on the third floor today. Had an extensive conversation with daughter Erika on phone regarding patient's symptoms who was also able to communicate
my treatment plan to the mom on bedside. Per daughter Erika, Karla
was the [facility] beginning August 20 through August 26 for CAD and acute NSTEMI-she was transferred from [facility] to [facility] on 08/26/2024-and she underwent multivessel coronary bypass surgery. During the supine stay she also got her right great toe
amputated. Her stay at [facility] lasted through mid September during which she coded (I suspect as a part of aspirin desensitization from anaphylaxis), and she was on NG tube for several weeks getting tube feeds. NG tube was removed and patient was
discharged to SNF for strength. During hospital stay she was started on several medications including amiodarone. Ever since discharge patient has been complaining of altered smell and taste of the foods, her oral intake decreased dramatically,
and she has been struggling with difficulty swallowing and painful swallowing with a sensation of food stuck in the throat for the past several months. Over the last 1 week patient has been having intermittent episodes of exertional shortness of
breath that progressively became worse to the extent of having orthopnea, PND and swelling of the feet. Yesterday in the a.m. patient had nausea, emesis-her emesis was bloody-daughter noted only fresh blood she denied seeing any clots or Jat
black-colored emesis. Patient did not have any recurrent episodes of vomiting after that. Concerned about shortness of breath, swelling of feet and single episode of hematemesis daughter brought patient for evaluation to the [facility] ER.
She denies having any chest pain, palpitations, previous diagnosis of cancer, family history of GI cancers, and diarrhea or blood in the stools. She also denies having lightheadedness or syncopal episodes.
Objective Data
-
Labs:
Laboratory Results
01/21/25 01/21/25
04:46 04:47
WBC 4.3 L
Hgb 10.4 L
Hct 34.2 L
Plt Count 146
Sodium 142
Potassium 4.0
Chloride 106
Carbon Dioxide 27
BUN 27 H
Creatinine 1.0
Glucose 161 H
Calcium 8.4
Vital Signs:
Vital Signs
Temp Pulse Resp BP Pulse Ox
97.7 F 64 18 105/63 95
01/21/25 11:00 01/21/25 11:00 01/21/25 11:00 01/21/25 11:01/21/25 11:00
I&O
01/20/25 01/21/25 01/22/25
06:59 06:59 06:59
Intake Total 480 / 480
Balance 480 / 480
Review of Systems
-
Unable to obtain full review of systems at this time due to: Language Barrier
History Source: Family
Constitutional: Reports Fatigue
EENT: Reports No Symptoms Reported
Respiratory: Reports Trouble Breathing
Cardiac: Reports PND and Orthopnea
Abdomen/GI: Reports Nausea, Vomiting and Hematemesis (Self subsided 1 episode)
Genitourinary: Reports No Symptoms
Musculoskeletal: Reports No Symptoms
Skin: Reports No Symptoms
Neuro: Reports No Symptoms
Hematologic / Lymphatic: Reports No Symptoms
Allergy / Immunology: Reports No Symptoms
Physical Exam
-
General: Comfortable; Negative Respiratory Distress
HEENT: Atraumatic, Moist Mucous Membranes, Anicteric and [place] Conjunctivae
Respiratory: Clear to Auscultation (In all lung lobes); Negative Wheezes, Rales, Rhonchi or Crackles
Cardiac: Regular Rhythm, S1/S2, Murmur (Systolic murmur 3/6 in intensity best heard at the sternal border), JVD and HJR; Negative Rub or Gallop
GI: Soft, Nontender, Nondistended and Normal Bowel Sounds
Musculoskeletal: No Clubbing, No Cyanosis, Edema, Right Lower Extrem (2+ pitting up to the knees) and Edema, Left Lower Extrem (2+ pitting up to the knees)
Skin: Warm
Neuro: AO x 3, No Motor Deficits and DTR's Intact & Symmetrica
Psych: Calm
Data Reviewed
-
Diagnostic Radiology: Image personally visualized and interpreted, Report Reviewed by me and Discussed with Physician
CT Scan: Image personally visualized and interpreted, Report Reviewed by me and Discussed with Physician
Ultrasound: Report Reviewed by me and Discussed with Physician
Medical Tests (Nuc Med, Echo etc): Report Reviewed by me and Discussed with Physician
Labs: Labs Reviewed by me, Discussed with Physician and Discussed with Nurse
[2025-01-21 13:04] LABS: Procalcitonin < 0.05 ng/ml (0.0-0.25)
--- NOTE | 2025-01-21 13:04 | CON.CAR ---
Consultation
Consultation Request
Date/Time Consultation Requested: January 21, 2025
Date/Time Consultation Performed: January 21, 2025
Requesting Provider: Hospitalist
Performing Provider: Dr. Zen Figueroa
Reason for Consultation: Acute congestive heart failure
Medical History
-
Chief Complaint: Shortness of breath, dyspnea on exertion
History of Present Illness:
She has a complicated past medical history which includes coronary artery disease with coronary artery bypass grafting surgery in August 2024 at [facility] with a very complicated and prolonged postoperative course.
She is brought to the emergency department by her and daughter for evaluation of epigastric abdominal discomfort, left-sided abdominal pain which she believes has been worsening since her coronary artery bypass grafting surgery in August
2024. She is also experienced reduced appetite, dysphagia and a 60 pound weight loss over the past 6 months (since her coronary artery bypass grafting surgery in August 2024)
She has also experienced increasing lower extremity edema and increasing dyspnea on exertion over the past month and is found to have acute congestive heart failure. There is also concern for pneumonia with new left and progressive right lower
lobe pneumonia.
Cardiology is consulted regarding further evaluation and management of acute on chronic congestive heart failure.
Past medical history
Coronary artery disease, underwent coronary bypass grafting surgery August 26, 2024 at [facility]
This was a complicated 1 month long stay.
Heart failure with reduced ejection fraction, LVEF 20-25%, Infarct based cardiomyopathy
Clostridium difficile colitis treated with vancomycin postoperative this year.
Pneumonia
Insulin-dependent diabetes
Diabetic neuropathy
Peripheral vascular disease
right great toe amputation August 2024
Lupus
Hypertension
Dyslipidemia
Echocardiogram December 19, 2024 finds severely reduced left ventricular systolic function with ejection fraction of 2024%. Global hypokinesis with septal akinesis. Stage III diastolic dysfunction. Moderate mitral regurgitation, severe tricuspid
regurgitation with estimated pulmonary artery pressure of 63 mmHg.
Compared to echocardiogram from July 2024 tricuspid regurgitation increased from trace to severe and systolic pulmonary artery pressure previously was estimated at 25 to 30 mmHg and now is estimated at 63 mmHg.
Social History
Tobacco: Non-Smoker
Alcohol: None
Personal:
Living: With Family
Family History
Family History: Reviewed & Not Pertinent
Allergies / Home Medications
Allergy/AdvReac Type Severity Reaction Status Date / Time
aspirin Allergy Anaphylaxis Verified 01/20/25 09:38
�Medication �Instructions �Recorded �Confirmed �Type
gabapentin 800 mg tablet 800 mg PO DAILYPRN PRN nerve pain 05/09/21 01/20/25 History
(Neurontin)
insulin aspart U-100 100 unit/mL 25 unit SC AC Diabetes 11/27/22 01/20/25 History
(3 mL) subcutaneous pen (Novolog
FlexPen U-100 Insulin aspart)
insulin glargine 100 unit/mL 35 unit SC HS Diabetes 11/27/22 01/20/25 History
subcutaneous solution (Lantus
U-100 Insulin)
acetaminophen 325 mg tablet 650 mg (2 x 325 mg) PO Q4HPRN PRN 12/02/22 01/20/25 Rx
mild pain/DOMINGO/temp> 100.4F #0 tabs
amiodarone 200 mg tablet 200 mg PO DAILY Arrhythmia 01/20/25 01/20/25 History
atorvastatin 40 mg tablet 40 mg PO DAILY High Cholesterol 01/20/25 01/20/25 History
citalopram 20 mg tablet 20 mg PO DAILY Mental 01/20/25 01/20/25 History
Health/Anxiety
clopidogrel 75 mg tablet 75 mg PO DAILY Blood Clot 01/20/25 01/20/25 History
Prevention/Tx
famotidine 40 mg tablet 40 mg PO DAILY Gastrointestinal 01/20/25 01/20/25 History
Issue
furosemide 40 mg tablet 40 mg PO DAILY Fluid 01/20/25 01/20/25 History
Retention/Swelling
metoprolol succinate 25 mg 25 mg PO DAILY Heart 01/20/25 01/20/25 History
tablet,extended release 24 hr Disease/Condition
potassium chloride 10 mEq 10 meq PO DAILY Electrolyte 01/20/25 01/20/25 History
capsule,extended release Repletion
spironolactone 25 mg tablet 12.5 mg PO DAILY Fluid 01/20/25 01/20/25 History
Retention/Swelling
Review of Systems
-
History Source: Patient and Family
All other systems: Negative unless noted
Constitutional: Weight Loss and Fatigue
EENT: No Symptoms
Respiratory: Trouble Breathing
Cardiac: Other (Shortness of breath, dyspnea on exertion, lower extremity edema progressive)
Abdomen/GI: Abdominal Pain
: No Symptoms
Musculoskeletal: No Symptoms
Skin: No Symptoms
Neurological: Numbness
Endocrine: No Symptoms
Hematologic/Lymphatic: No Symptoms
Physical Exam
Vital Signs
Temp Pulse Resp BP Pulse Ox
97.7 F 64 18 105/63 95
01/21/25 11:00 01/21/25 11:00 01/21/25 11:00 01/21/25 11:00 01/21/25 11:00
Lab Results
01/21/25 04:47
01/21/25 04:46
Troponin I < 0.012 ng/ml 01/20/25 13:32
Eqt-V-Ojwskmuybqu Pept 07578 pg/ml 01/20/25 13:32
Physical Exam
General: Well Developed, Well Nourished, No Apparent Distress and Comfortable
HEENT: Normocephalic, Anicteric and Moist Mucous Membranes
Respiratory: Clear and Non Labored Respirations
Cardiac: S1/S2 (Normal S1 and S2, no S3 no S4 is a grade 1/6 apical holosystolic murmur and a grade 1/6 systolic murmur at the lower left sternal border, no rubs, PMI is laterally and inferiorly displaced), Regular Rhythm and Other (ICD generator
implant at left upper chest)
Breast: Deferred by me
GI: Soft, Non Tender, Non Distended and Normal Bowel Sounds
Rectal: Deferred by Provider
Musculoskeletal: No Clubbing, No Cyanosis and Edema (+2 pitting pretibial edema bilateral lower extremities)
Skin: Warm and Dry
Neuro: Awake, Alert and Oriented
Psych: Calm
Impression / Plan
-
Primary care provider: Keli Gonzalez MD
Primary client operations manager: Lan Estrada MD
Assessment:
Acute on chronic heart failure with reduced ejection fraction and Severe tricuspid regurgitation with pulmonary hypertension
Multi lobar pneumonia
Progressive dysphagia, chronic abdominal pain
Coronary artery disease, underwent coronary bypass grafting surgery August 26, 2024 at [facility], �VILLAFUERTE to LAD, saphenous vein to diagonal, saphenous vein to obtuse marginal. ���
Cardiac catheterization in July at [facility] revealed luminal irregularities of the LAD, mid LAD stenosis of 80%, diffuse, small diffusely diseased diagonal, D2 was medium caliber with 80% stenosis, subtotally occluded mid circumflex at origin
of OM1 with left to left collaterals and moderate RCA plaque.�Attempts to desensitize her to aspirin with anaphylactic aspirin allergy were unsuccessful with mild allergic reaction with aspirin therapy. Desensitization was again recommended but
family requested transfer to the [facility].
She had a complicated postoperative stay
She had a postoperative VF arrest.�
Urgent postoperative catheterization showed that VILLAFUERTE to LAD was patent, saphenous vein graft to diagonal was widely patent, and saphenous vein graft to OM was also patent.
The patient underwent implantation of a single-chamber Martini ICD.
She required partial amputation of the right 2nd and 3rd toe
Single-chamber ICD Martini, placed for ventricular fibrillation 2 days after her CABG
Heart failure with reduced ejection fraction, LVEF 20-25%, Infarct based cardiomyopathy
Clostridium difficile colitis treated with vancomycin postoperative this year.
Pneumonia
Insulin-dependent diabetes
Diabetic neuropathy
Peripheral vascular disease
right great toe amputation August 2024
Lupus
Hypertension
Dyslipidemia
Echocardiogram December 19, 2024 finds severely reduced left ventricular systolic function with ejection fraction of 2024%. Global hypokinesis with septal akinesis. Stage III diastolic dysfunction. Moderate mitral regurgitation, severe tricuspid
regurgitation with estimated pulmonary artery pressure of 63 mmHg.
Compared to echocardiogram from July 2024 tricuspid regurgitation increased from trace to severe and systolic pulmonary artery pressure previously was estimated at 25 to 30 mmHg and now is estimated at 63 mmHg.
Chest x-ray January 20, 2025 finds new left and progressive right lower lobe pneumonia. There is vascular cephalization
Laboratory studies January 20, 2025 finds proBNP of 13,600, troponin < 0.012
ECG January 20, 2025 finds sinus rhythm with left sided interventricular conduction delay and left axis deviation.
Recommendation:
Dyspnea on exertion is likely multifactorial and includes acute on chronic heart failure with reduced ejection fraction as well as multi lobar pneumonia.
Regarding heart failure with reduced ejection fraction:
She has already clinically improved with IV Lasix diuresis
- Continue IV Lasix 40 mg IV twice daily
- Continue guideline directed medical therapy for heart failure with reduced ejection fraction
Toprol-XL 25 mg daily
Spironolactone 12.5 mg daily
Outpatient record (office note November 28, 2024) also notes that patient should be taking valsartan 40 mg once daily and empagliflozin 10 mg once daily
We will need to further investigate as she does not appear to be on these medications at this hospital admission.
Consider resuming valsartan 40 mg once daily and empagliflozin 10 mg once daily at this hospital stay
I see nothing in her medical record that indicates she has atrial fibrillation.
She is likely on amiodarone related to her VF arrest postoperatively from August 2024 but we will need to further review her medical record to be certain.
- Maintain amiodarone 200 mg daily
Management of pneumonia as per primary service, currently on antibiotic therapy which includes ceftriaxone and doxycycline
GI is on board for further evaluation and management of her GI symptoms
I met with the patient and her family at bedside which included her and her son.
All the questions have been answered.
Total time spent today was 75 minutes in preparing to see the patient, seeing the patient and coordination of care. This included review of recent laboratory evaluations, cardiact testing, imaging studies, primary care rtecords, specialty
consultations, hospital records, as well as personally interviewing and examining the patient, which included discussion of their tests, review/ordering medications, and communicating with other healthcare professionals and also treatment planning
as well as counseling.
Data Reviewed
-
EKG: Tracing Personally Visualized and interpreted
Radiology: Image Personally Visualized and interpreted and Report Reviewed by me
CT Scan: Report Reviewed by me
Ultrasound: Report Reviewed by me
Medical Tests (Nuc Med, Echo etc): Report Reviewed by me
Labs: Labs Reviewed by me
Old Records: Reviewed
[2025-01-21 17:02] LABS: Glucose - Point of Care 222 mg/dl (70-99)
[2025-01-21] MEDS: NOVOLOG FLEXPEN-HIGH RESISTANCE 4 UNITS SC (18:32)
[2025-01-21 21:39] LABS: Glucose - Point of Care 183 mg/dl (70-99)
[2025-01-21] MEDS: LANTUS 0.35 UNITS SC (22:36)
[2025-01-21] MEDS: TYLENOL 650 MG PO (22:36)
[2025-01-22] VITALS (8 sets, daily range): BP systolic 62–133; BP diastolic 56–76; BMI 24.3
[2025-01-22] MEDS: NEURONTIN 800 MG PO (00:12)
[2025-01-22 06:30] LABS: Hematocrit 31.3 % (37.0-47.0); Hemoglobin 9.6 g/dL (12.0-16.0); Mean Corp Hgb Conc. 30.7 g/dL (33.0-37.0); Mean Corpuscular Hgb 23.8 pg (27.0-31.0); Mean Corpuscular Volume 77.7 fL (81.0-99.0); Mean Platelet Volume 10.9 fL (7.4-10.4); Platelet Count 154 10^3/uL (130-400); Red Blood Cell Count 4.03 10^6/uL (4.20-5.40); White Blood Cell Count 4.9 10^3/uL (4.8-10.8)
[2025-01-22 07:01] LABS: Blood Urea Nitrogen 27 mg/dl (7-17); Calcium 8.2 mg/dl (8.4-10.2); Carbon Dioxide 27 mmol/L (22-30); Chloride 106 mmol/L (98-107); Estimated Creatinine Clearance 47 ml/min; Glucose 102 mg/dl (70-99); Potassium 3.6 mmol/L (3.5-5.1); Sodium 140 mmol/L (135-145); eGFR > 60.00
[2025-01-22 07:47] LABS: Glucose - Point of Care 76 mg/dl (70-99)
--- NOTE | 2025-01-22 08:14 | W.PN.GI.CBS2 ---
Today's Communication / Plan
-
possible EGD and colo in am if cleared by cardiology
GES
Assessment / Plan
-
1. Dysphagia to mostly solid food especially worsened since the surgery. Could have possible underlying Schatzki's ring or less likely neoplasm or peptic stricture vs recurrent laryngeal nerve injury during CABG there was no obvious neoplasm noted
on CT abdomen and pelvis. Continue PPI. when medically stable will schedule her for endoscopy possible 01/23 will [facility]. Will schedule her for an upper GI for tomorrow in the interim
2. chronic abdominal pain mostly left upper quadrant especially worsened also since August after her CABG and also has been having loss of appetite with over 60 pound weight loss. This may be multifactorial from her illness especially since she
had a prolonged hospital stay after her CABG in August at [place] and also required a toe amputation during that visit and apparently also had cardiac arrest ? post op/intraop during that admission with ileus and required NG tube placement per her
daughter. She appears overall deconditioned and loss of appetite could also be related to possible diabetic gastroparesis vs possible vagus nerve/ recurrent laryngeal nerve injury during CABG which would explain the dysphagia and gastroparesis
symptoms since CABG. As described above 2 recent CTs 1 in November with contrast in 1 this admission without contrast were negative for any obvious neoplasm. Will need an eventual endoscopy and colonoscopy will [facility] if cleared for 01/23.
currently being treated for CHF exacerbation and pneumonia. Will also get GES.
3. She also has constipation and has retained stool noted on CT scans started on MiraLAX twice daily with senna as needed
4. She also has minimal ascites noted on imaging and also has mildly elevated ALT and possible hepatic congestion noted on ultrasound which may be related to CHF, no obvious evidence of cirrhosis noted and could also have possible MAFLD.
Subjective
Subjective
Date of Service: January 22, 2025
Patient looks comfortable and denies any nausea or vomiting, she does have chronic left upper quadrant pain since the surgery. Last BM was on 01/20
Objective
Data Reviewed
Laboratory Data:
Laboratory Results
01/22/25 05:41
01/22/25 05:41
Laboratory Results
Magnesium 2.2 mg/dl (1.6-2.3) 01/21/25 04:46
Total Bilirubin 0.7 mg/dl (0.2-1.3) 01/20/25 13:32
AST 30 U/L (14-36) 01/20/25 13:32
ALT 37 U/L (0-35) H 01/20/25 13:32
Alkaline Phosphatase 126 U/L (38-126) 01/20/25 13:32
Lipase 213 U/L (23-300) 01/20/25 13:32
Vital Signs and I&O:
Vital Signs
Temp Pulse Resp BP Pulse Ox
97.3 F 64 16 114/66 95
01/22/25 07:05 01/22/25 07:05 01/22/25 07:05 01/22/25 07:05 01/22/25 07:05
I&O
01/21/25 01/22/25 01/23/25
06:59 06:59 06:59
Intake Total 480 / 480 1050 / 1050
Balance 480 / 480 1050 / 1050
Physical Exam
Physical Exam
Cardiology: Normal Sinus Rhythm
Pulmonary: Clear
GI: Soft, Non Distended, Tender (left upper quadrant) and Normal Bowel Sounds
[2025-01-22] MEDS: NOVOLOG FLEXPEN-HIGH RESISTANCE 1 UNITS SC (08:59)
[2025-01-22] MEDS: TOPROL XL 25 MG PO (09:00)
[2025-01-22] MEDS: KCL 10 MEQ PO (09:00)
[2025-01-22] MEDS: ALDACTONE 12.5 MG PO (09:00)
[2025-01-22] MEDS: PACERONE 200 MG PO (09:04)
[2025-01-22] MEDS: PLAVIX 75 MG PO (09:04)
[2025-01-22] MEDS: LIPITOR 40 MG PO (09:04)
[2025-01-22] MEDS: HEPARIN 5000 UNITS SC ×2 (09:05→20:13)
[2025-01-22] MEDS: PROTONIX 40 MG PO (09:05)
[2025-01-22] MEDS: LASIX 40 MG PO (09:05)
--- NOTE | 2025-01-22 09:15 | CM ---
CM following for discharge planning needs. Current PT recommendation is for SNF vs. home PT. OT consult requested today.
Plan: CM will continue to follow to coordinate discharge needs; anticipate SNF vs. VN.
--- NOTE | 2025-01-22 09:59 | W.PN.CARDCBS ---
Addendum entered and electronically signed by Rajendra Mello DO 01/22/25 14:18:
I saw and examined the patient.
The [employer]'s note was reviewed and I agree with the note.
Comment:
Plan:
Cont IV diuresis
Stable from cardiac standpoint for GI procedures
Replete lytes as needed
Pulm toilet as per primary service
Work up for abd pain ongoing.
Original Note:
Today's Communication / Plan
-
Replete potassium
Start Valsartan 40 mg daily
Continue ongoing IV diuresis
Impression / Plan
-
Primary care provider: Keli Gonzalez MD
Primary occupational therapy aide: Lan Estrada MD
Assessment:
Admitted 01/20/25 with SOB/JAMA
Acute on chronic heart failure with reduced ejection fraction, proBNP 13,600
Severe tricuspid regurgitation with pulmonary hypertension
Multi lobar pneumonia
Progressive dysphagia, chronic abdominal pain
Coronary artery disease, underwent coronary bypass grafting surgery August 26, 2024 at [facility], �VILLAFUERTE to LAD, saphenous vein to diagonal, saphenous vein to obtuse marginal. ���
Cardiac catheterization in July at [place] revealed luminal irregularities of the LAD, mid LAD stenosis of 80%, diffuse, small diffusely diseased diagonal, D2 was medium caliber with 80% stenosis, subtotally occluded mid circumflex at origin
of OM1 with left to left collaterals and moderate RCA plaque.�Attempts to desensitize her to aspirin with anaphylactic aspirin allergy were unsuccessful with mild allergic reaction with aspirin therapy. Desensitization was again recommended but
family requested transfer to the [facility].
She had a complicated postoperative stay
She had a postoperative VF arrest.�
Urgent postoperative catheterization showed that VILLAFUERTE to LAD was patent, saphenous vein graft to diagonal was widely patent, and saphenous vein graft to OM was also patent.
The patient underwent implantation of a single-chamber Martini ICD.
She required partial amputation of the right 2nd and 3rd toe
Single-chamber ICD Martini, placed for ventricular fibrillation 2 days after her CABG
Heart failure with reduced ejection fraction, LVEF 20-25%, Infarct based cardiomyopathy
Clostridium difficile colitis treated with vancomycin postoperative this year.
Pneumonia
Insulin-dependent diabetes
Diabetic neuropathy
Peripheral vascular disease
right great toe amputation August 2024
Lupus
Hypertension
Dyslipidemia
Echocardiogram December 19, 2024 finds severely reduced left ventricular systolic function with ejection fraction of 20-25%. Global hypokinesis with septal akinesis. Stage III diastolic dysfunction. Moderate mitral regurgitation, severe tricuspid
regurgitation with estimated pulmonary artery pressure of 63 mmHg.
Compared to echocardiogram from July 2024 tricuspid regurgitation increased from trace to severe and systolic pulmonary artery pressure previously was estimated at 25 to 30 mmHg and now is estimated at 63 mmHg.
Chest x-ray January 20, 2025 finds new left and progressive right lower lobe pneumonia. There is vascular cephalization
Laboratory studies January 20, 2025 finds proBNP of 13,600, troponin < 0.012
ECG January 20, 2025 finds sinus rhythm with left sided interventricular conduction delay and left axis deviation.
Recommendation:
Dyspnea on exertion is likely multifactorial and includes acute on chronic heart failure with reduced ejection fraction as well as multi lobar pneumonia.
Heart failure with reduced ejection fraction:
proBNP 13,600 on admission
Clinically improving with ongoing IV Lasix diuresis but still appears to be mildly volume overloaded
- Continue IV Lasix 40 mg IV twice daily.
- Renal function stable
- replete potassium, K+ 3.6
- Continue guideline directed medical therapy for heart failure with reduced ejection fraction
Toprol-XL 25 mg daily
Spironolactone 12.5 mg daily
Outpatient record (office note November 28, 2024) also notes that patient should be taking valsartan 40 mg once daily and empagliflozin 10 mg once daily. However talked with patient's daughter on the phone and she does not think she is taking these
medications. Will resume valsartan 40 mg once daily.
Consider eventual resumption of empagliflozin 10 mg once daily which can also be done as outpatient
Per review of medical records no indication of atrial fibrillation.
She is likely on amiodarone related to her VF arrest postoperatively from August 2024
- No arrhythmias noted on telemetry this admission. Maintain amiodarone 200 mg daily. Would consider outpatient monitor and possible discontinuation of amiodarone if no arrhythmia noted
Management of pneumonia as per primary service, currently on antibiotic therapy which includes ceftriaxone and doxycycline
Ongoing issues with dysphagia associated with significant weight loss. GI is on board who are recommending EGD and colonoscopy. From cardiac standpoint patient is stable and may proceed.
Discussed above with patient's daughter Erika over the phone who also helped translate for patient
History of Present Illness 01/21/2025:
She has a complicated past medical history which includes coronary artery disease with coronary artery bypass grafting surgery in August 2024 at [facility] with a very complicated and prolonged postoperative course.
She is brought to the emergency department by her and daughter for evaluation of epigastric abdominal discomfort, left-sided abdominal pain which she believes has been worsening since her coronary artery bypass grafting surgery in August
2024. She is also experienced reduced appetite, dysphagia and a 60 pound weight loss over the past 6 months (since her coronary artery bypass grafting surgery in August 2024)
She has also experienced increasing lower extremity edema and increasing dyspnea on exertion over the past month and is found to have acute congestive heart failure. There is also concern for pneumonia with new left and progressive right lower
lobe pneumonia.
Cardiology is consulted regarding further evaluation and management of acute on chronic congestive heart failure.
Progress Note - Land Appraiser
Subjective
Date of Service: January 22, 2025
Patient seen and examined with daughter on speaker phone. Overall she reports feeling well. Notes reduced lower extremity edema and denies chest pain or shortness of breath at this time
Objective
Labs:
01/22/25 05:41
01/22/25 05:41
Labs
Hgb 9.6 g/dL (12.0-16.0) L 01/22/25 05:41
Hct 31.3 % (37.0-47.0) L 01/22/25 05:41
Plt Count 154 10^3/uL (130-400) 01/22/25 05:41
Sodium 140 mmol/L (135-145) 01/22/25 05:41
Potassium 3.6 mmol/L (3.5-5.1) 01/22/25 05:41
BUN 27 mg/dl (7-17) H 01/22/25 05:41
Creatinine 1.0 mg/dL (0.6-1.0) 01/22/25 05:41
Glucose 102 mg/dl (70-99) H 01/22/25 05:41
Troponins
01/20/25
13:32
Troponin I < 0.012
Vital Signs and I&O:
Vital Signs
Temp Pulse Resp BP Pulse Ox
97.3 F 64 16 114/66 95
01/22/25 07:05 01/22/25 09:05 01/22/25 07:05 01/22/25 09:05 01/22/25 07:05
Vital Signs
Temp Pulse Resp BP Pulse Ox
97.3 F 64 16 114/66 95
01/22/25 07:05 01/22/25 09:05 01/22/25 07:05 01/22/25 09:05 01/22/25 07:05
Intake & Output
01/20/25 01/21/25 01/22/25 01/23/25
06:59 06:59 06:59 06:59
Intake Total 480 / 480 1050 / 1050
Balance 480 / 480 1050 / 1050
Physical Exam
Physical Exam
GEN: No distress, awake, Ox3, sitting up in chair
HEENT: supple, anicteric, mmm
LUNGS: Fine crackles at bilateral bases otherwise CTA, no wheezes/rales
CV: Reg, S1/S2, 1/6 murmur at LSB
ABD: soft, BS+, NT/ND
EXT: +1 bilateral lower extremity edema, no clubbing or cyanosis
NEURO: Gross non-focal
SKIN: No rash, warm, dry, pink
--- NOTE | 2025-01-22 11:00 | PTOTSP ---
Speech Language Pathology
VIDEOFLUOROSCOPIC SWALLOWING EXAMINATION (VSE) completed. Pt with oropharyngeal swallow WFL. Trace pharyngeal residue noted throughout study, which mostly cleared with independent subsequent swallows. No penetration/aspiration noted throughout
study.
Recommend:
(1) Regular solids/thin liquids when cleared by GI
(2) General aspiration precautions
(3) Meds as tolerated
(4) Further GI workup as planned
(5) THERMOMETER TESTER to sign off. Please reconsult as indicated
[2025-01-22 11:47] LABS: Glucose - Point of Care 45 mg/dl (70-99)
[2025-01-22] MEDS: KCL 40 MEQ PO (11:56)
[2025-01-22] MEDS: DIOVAN 40 MG PO (11:56)
[2025-01-22] MEDS: NOVOLOG FLEXPEN-HIGH RESISTANCE SC ×2 (12:00→17:54)
[2025-01-22 12:11] LABS: Glucose - Point of Care 46 mg/dl (70-99)
[2025-01-22] MEDS: DEXTROSE 50% SYRINGE 12.5 GRAMS IV (12:32)
[2025-01-22 12:37] LABS: Glucose - Point of Care 25 mg/dl (70-99)
[2025-01-22 12:43] LABS: Glucose - Point of Care 336 mg/dl (70-99)
[2025-01-22 13:03] LABS: Glucose - Point of Care 135 mg/dl (70-99)
[2025-01-22 14:10] LABS: Glucose - Point of Care 200 mg/dl (70-99)
--- NOTE | 2025-01-22 15:22 | W.PN.HOSP.TC ---
Addendum entered and electronically signed by Efrain Gee MD 01/22/25 21:38:
Attending Addendum-
I saw and evaluated the patient. I reviewed the resident�s note and agree with findings and plan as documented in the resident�s note. Sub: complains of sob and LE swelling and difficulty swallowing with poor appetite. feels weak. seen with
POA/ present. Full 12 point ROS reviewed and negative except as documented Exam: Vitals reviewed in chart GEN-NAD heart incision CDI no m/r/g lungs fine crackles at bases abd soft NT ND pos BS LE 1+ B/L LE edema
Plan:
#AE HFpEF
proBNP on admission-[address]330.
PICC placed
Currently she remains on oral Lasix, spironolactone.
Continue metoprolol succinate ER 25 mg.
ECHO -11/22 -HFrEF with EF of 20 to 25%, global hypokinesis with septal akinesis, severe TR with PASP elevated to 63, moderate MR.
Strict I's and O's, weights
Dry weight from [employer]-11/30/24-120 pounds.
start IV lasix
trend BMP
#Odynophagia, Dysphagia, Hematemesis-
Speech therapy evaluated the patient and advance diet to IDDSI 6. And thin liquids.
barium swallow study today
GI con board
upper GI endoscopy and colonoscopy in am
cards cleared for procedures
#Normocytic anemia-
Likely from anemia of chronic disease versus acute hematemesis.. Hemoglobin stable
Trend H&H. Transfuse if less than 7.
#Type 2 diabetes mellitus-
on BB insulin
1/2 dose while NPO
#SLE-
Continue prednisone.
#Essential hypertension-
Continue lisinopril.
#Hyperlipidemia-
Continue statin.
# h/o V fib arrest
- cont amiodarone
#Peripheral neuropathy-
Continue gabapentin.
#History of GERD-
Continue famotidine.
#CAD with Recent CABG-
- 08/2024
- cont Plavix
#Anxiety/depression-
Continue citalopram 20 mg.
DVT prophylaxis-
Continue SCD
CODE STATUS-
Full code
Time spent coordinating care, review of plan of care with resident, personally reviewed records in EMR, med rec, consults, notes, labs, radiology, d/w nursing and POA � 52 mins
Original Note:
Today's Communication/Plan
-
Continue IV Lasix
Start valsartan
Endoscopy/colonoscopy tomorrow
Continue Protonix
Assessment / Plan
Assessment / Plan
[id number]-old female with PMHx significant for coronary artery disease s/p CABG in September 16, HFrEF with EF of 20 to 25%, IDDM, hyperlipidemia, SLE, peripheral vascular disease, asthma, hypertension, diabetic neuropathy presents to the
hospital for evaluation of a single episode of hematemesis, worsening shortness of breath and weight loss per family. Admitted to hospital for acute decompensated heart failure and hematemesis evaluation.
Plan
#Acute on chronic heart failure with reduced ejection fraction
ECHO -11/22 -HFrEF with EF of 20 to 25%, global hypokinesis with septal akinesis, severe TR with PASP elevated to 63, moderate MR.
proBNP on admission-02250.
Chest x-ray�evidence of cardiomegaly
Patient failed IV access, so was on home oral Lasix regimen until yesterday.
Patient gained 3 EKGs since admission
Transitioned to IV Lasix today, IR was able to get IV access
Cardiology consulted
Continue with guideline directed medical therapy�metoprolol 25 mg, spironolactone 12.5 mg
Valsartan 40 mg added today
Eventual resumption of empagliflozin 10 mg once as outpatient
Strict I's and O's, monitor weights
Replete electrolytes as needed
#Dysphagia, hematemesis
Likely from Schatzki's ring or neoplasm or peptic stricture or recurrent laryngeal nerve injury during CABG
Speech and GI consulted.
Speech therapy evaluated the patient and advance diet to IDDSI 6.
Speech modified barium swallow�No fluoroscopic evidence for airway aspiration
GI�plan for upper GI endoscopy, colonoscopy tomorrow
Continue Protonix 40 mg, p.o.
#Normocytic anemia
Likely from anemia of chronic disease versus acute hematemesis.. Hemoglobin 10.4 >>>9.6
Trend H&H.
Transfuse if less than 7.
#Type 2 diabetes mellitus-
Continue Lantus 35 units
ISS�high resistance
#No history of A-fib
Patient on amiodarone related to her VF arrest postoperatively from August 2024
No telemetry evidence of arrhythmias
Will continue for now, consider outpatient monitoring and possible discontinuation if no arrhythmia.
#SLE
Continue prednisone.
#Essential hypertension
Continue lisinopril.
#Hyperlipidemia
Continue statin.
#Peripheral neuropathy
Continue gabapentin.
#History of GERD
Continue famotidine.
#Recent CABG
continue Plavix.
#Anxiety/depression
Continue citalopram 20 mg.
DVT prophylaxis-SCDs
CODE STATUS-
Full code
Anticipated Discharge: 24 - 48 hours
Subjective/Interval History
-
Date of Service: January 22, 2025
Patient still reports some fatigue and states swelling in the lower extremities has not improved much.
Objective Data
-
Labs:
Laboratory Results
01/22/25
05:41
WBC 4.9
Hgb 9.6 L
Hct 31.3 L
Plt Count 154
Sodium 140
Potassium 3.6
Chloride 106
Carbon Dioxide 27
BUN 27 H
Creatinine 1.0
Glucose 102 H
Calcium 8.2 L
Vital Signs:
Vital Signs
Temp Pulse Resp BP Pulse Ox
97.2 F 63 14 133/74 91
01/22/25 13:11 01/22/25 12:11 01/22/25 12:11 01/22/25 12:11 01/22/25 13:11
I&O
01/21/25 01/22/25 01/23/25
06:59 06:59 06:59
Intake Total 480 / 480 1050 / 1050
Balance 480 / 480 1050 / 1050
Review of Systems
-
All other systems: Reviewed and negative
Physical Exam
-
General: Well Developed and Well Nourished
HEENT: Normocephalic and Atraumatic
Respiratory: Clear to Auscultation
Cardiac: Regular Rhythm, S1/S2 and Murmur
GI: Soft, Nontender, Nondistended and Normal Bowel Sounds
Musculoskeletal: Other (2+ bilateral lower extremity edema up to the knees)
Skin: Warm and Dry
Neuro: Awake, Alert, Oriented, AO x 3 and Nonfocal/Grossly Intact
Psych: Calm
[2025-01-22] MEDS: LASIX 40 MG IV (17:37)
[2025-01-22] MEDS: NULYTELY SOLUTION 4 LITERS PO (17:37)
[2025-01-22 17:39] LABS: Glucose - Point of Care 91 mg/dl (70-99)
--- NOTE | 2025-01-22 18:45 | PTCARENOTE ---
Hypoglycemia protocol initiated when pt BG 46. Fruit juice administered. Pt asymptomatic. BG 25 after 2 fruit juice given-> suspected AccuCheck machine malfunction. BG 336 after D5 administration. IV site infiltrated after only half of dose
administered. MD made aware. Right PICC line placed in IR in afternoon. IV diuretics administered when pt arrived back to unit. GI confirmed endo/colonoscopy in am. Prep began. MD order to hold evening Novolog sliding scale dose due to BG 91. Both
medical laboratory technical officer pad and family used to translate information to pt throughout shift. Will continue to monitor.
[2025-01-22 21:13] LABS: Glucose - Point of Care 74 mg/dl (70-99)
[2025-01-22] MEDS: LANTUS SC (21:30)
[2025-01-22] MEDS: DULCOLAX 20 MG PO (22:16)
[2025-01-22 23:51] LABS: Glucose - Point of Care 121 mg/dl (70-99)
[2025-01-23] VITALS (17 sets, daily range): BP systolic 81–121; BP diastolic 53–72; PULSE 62; O2SAT 98; BMI 24.8
[2025-01-23 03:42] LABS: Glucose - Point of Care 67 mg/dl (70-99)
[2025-01-23] MEDS: DEXTROSE 50% SYRINGE 12.5 GRAMS IV ×2 (03:46→08:17)
[2025-01-23 04:16] LABS: Glucose - Point of Care 143 mg/dl (70-99)
[2025-01-23 05:41] LABS: Hematocrit 30.6 % (37.0-47.0); Hemoglobin 9.6 g/dL (12.0-16.0); Mean Corp Hgb Conc. 31.4 g/dL (33.0-37.0); Mean Corpuscular Hgb 24.4 pg (27.0-31.0); Mean Corpuscular Volume 77.7 fL (81.0-99.0); Mean Platelet Volume 10.7 fL (7.4-10.4); Platelet Count 157 10^3/uL (130-400); Red Blood Cell Count 3.94 10^6/uL (4.20-5.40); Red Cell Dist. Width 17.2 % (11.5-14.5); White Blood Cell Count 4.1 10^3/uL (4.8-10.8)
[2025-01-23 06:07] LABS: ALT (SGPT) 28 U/L (0-35); AST (SGOT) 27 U/L (14-36); Albumin 3.3 g/dl (3.5-5.0); Alkaline Phosphatase 124 U/L (38-126); Blood Urea Nitrogen 24 mg/dl (7-17); Calcium 8.3 mg/dl (8.4-10.2); Carbon Dioxide 26 mmol/L (22-30); Chloride 106 mmol/L (98-107); Estimated Creatinine Clearance 47 ml/min; Glucose 94 mg/dl (70-99); Potassium 4.2 mmol/L (3.5-5.1); Sodium 139 mmol/L (135-145); Total Bilirubin 0.6 mg/dl (0.2-1.3); Total Protein 6.7 g/dl (6.3-8.2); eGFR > 60.00
[2025-01-23 06:23] LABS: Glucose - Point of Care 71 mg/dl (70-99)
[2025-01-23 08:04] LABS: Glucose - Point of Care 67 mg/dl (70-99)
[2025-01-23] MEDS: LASIX 40 MG IV ×2 (08:18→16:16)
[2025-01-23] MEDS: HEPARIN 5000 UNITS SC ×2 (08:19→20:45)
[2025-01-23 08:57] LABS: Glucose - Point of Care 105 mg/dl (70-99)
--- NOTE | 2025-01-23 09:01 | W.PN.CARDCBS ---
Addendum entered and electronically signed by Rajendra Mello DO 01/23/25 14:50:
I saw and examined the patient.
The [employer]'s note was reviewed and I agree with the note.
Comment:
Plan:
Continue IV diuresis with Lasix 40 mg IV twice daily. Consider transition to oral Lasix next 24 hours
Farxiga 10 mg daily in AM.
GI workup inpatient has been completed. Patient did not complete prep and colonoscopy was not performed.
Continue supportive care.
Discussed with family at bedside.
Original Note:
Today's Communication / Plan
-
Cont Lasix 40 mg IV BID
Start Farxiga 10 mg daily in AM
Impression / Plan
-
Primary care provider: Keli Gonzalez MD
Primary post partum nurse: Lan Estrada MD
Impression:
Admitted with SOB/JAMA 01/20/25
Acute on chronic HFrEF
ICM EF 20 to 25% by echo 12/19/2024
Severe TR with PAP 63 mmHg
Multi lobar PNA
Progressive dysphagia, chronic abdominal pain
CAD s/p CABG with VILLAFUERTE to LAD, saphenous vein to diagonal, saphenous vein to obtuse marginal at [facility] 08/26/24
Postop VF arrest
Patent VILLAFUERTE to LAD, patent SVG to diagonal, patent SVG to OM by postop cardiac cath
s/p Martini [employer] SC ICD at [facility] 08/2024
h/o C. difficile postop CABG at [facility]
Anaphylactic aspirin allergy with previous mild allergic reaction during attempted aspirin desensitization therapy at [facility] 08/24/24
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
DM 2
Diabetic neuropathy
Lupus
Hypertension
Dyslipidemia
Echo 07/2024: tricuspid regurgitation increased from trace to severe and systolic pulmonary artery pressure previously was estimated at 25 to 30 mmHg and now is estimated at 63 mmHg.
Echo 12/09/24: finds severely reduced left ventricular systolic function with ejection fraction of 20-25%. Global hypokinesis with septal akinesis. Stage III diastolic dysfunction. Moderate mitral regurgitation, severe tricuspid regurgitation with
estimated pulmonary artery pressure of 63 mmHg.
Plan:
-Patient previously admitted to [facility] 08/20/2024 until 08/26/2024 with NSTEMI and MV CAD. Patient with previous anaphylactic allergy to aspirin and there was an attempt at aspirin desensitization starting on the night of 08/21/2024 and patient had
swollen eyes and hand tremors so desensitization therapy was stopped and the family was not interested in another attempt. It then came to light that the patient's family member is a senior boiler service technician at [facility] and the family requested transfer
which was performed on 08/26/2024. As noted above patient had CABG and postop suffered VF arrest. Post CABG cardiac cath showed patent grafts and patient ultimately had an Martini [employer] ICD placed. Patient also had C. difficile postop in the
[facility] there were also right toe amputations that were performed all as part of her postop course. Patient came back to [facility] ER on 01/20/2025 with dysphagia and progressive weight loss. Cardiology consulted for acute HFrEF and also to provide
preprocedure cardiovascular risk stratification for planned GI workup.
-ECG from 01/20/2025 reviewed by me on 01/23/2025 and looks like SR. Telemetry reviewed by me 01/23/2025 and also appears to be SR
-Patient scheduled for upper and lower endoscopy 01/23/2025 and patient is stable to proceed with those procedures from a cardiac standpoint
-Weight is up 3 lbs overnight, but being weighed with bed scale. Cont Lasix 40 mg IV BID. Patient was taking Lasix 40 mg PO daily prior to admission
-Labs reviewed by me at 01/23/2025 and Cre is stable
-Outpatient dose of Toprol-XL 25 mg daily has been continued
-New to valsartan 40 mg daily this admission, it sounds as though this was ordered as an outpatient and patient may have been noncompliant for unclear reasons, there may have just been some confusion
-Patient was also apparently ordered Jardiance 10 mg daily was not taking this prior to admission, will start Farxiga 10 mg daily 02/14
-Outpatient dose of spironolactone 12.5 mg daily has been continued
-Patient was taking amiodarone 200 mg daily prior to admission and this may have been started for her post CABG VF arrest. We have not seen any atrial arrhythmia this admission. Patient is not chronically on OAC
-Outpatient dose of Plavix 75 mg daily has been continued and this will presumably be long-term as patient cannot take aspirin due to history of anaphylactic allergy
HPI 01/21/2025: She has a complicated past medical history which includes coronary artery disease with coronary artery bypass grafting surgery in August 2024 at [facility] with a very complicated and prolonged postoperative course.
She is brought to the emergency department by her and daughter for evaluation of epigastric abdominal discomfort, left-sided abdominal pain which she believes has been worsening since her coronary artery bypass grafting surgery in August
2024. She is also experienced reduced appetite, dysphagia and a 60 pound weight loss over the past 6 months (since her coronary artery bypass grafting surgery in August 2024). She has also experienced increasing lower extremity edema and
increasing dyspnea on exertion over the past month and is found to have acute congestive heart failure. There is also concern for pneumonia with new left and progressive right lower lobe pneumonia. Cardiology is consulted regarding further
evaluation and management of acute on chronic congestive heart failure.
Progress Note - Yeast Supervisor
Subjective
Date of Service: January 23, 2025
Tired, knows she's having GI procedures today
Objective
Labs:
01/23/25 05:29
01/23/25 05:29
Labs
Hgb 9.6 g/dL (12.0-16.0) L 01/23/25 05:
Hct 30.6 % (37.0-47.0) L 01/23/25 05:29
Plt Count 157 10^3/uL (130-400) 01/23/25 05:
Sodium 139 mmol/L (135-145) 01/23/25 05:29
Potassium 4.2 mmol/L (3.5-5.1) 01/23/25 05:29
BUN 24 mg/dl (7-17) H 01/23/25 05:29
Creatinine 1.0 mg/dL (0.6-1.0) 01/23/25 05:29
Glucose 94 mg/dl (70-99) 01/23/25 05:29
Troponins
01/20/25
13:32
Troponin I < 0.012
Vital Signs and I&O:
Vital Signs
Temp Pulse Resp BP Pulse Ox
98.2 F 66 17 106/54 94
01/23/25 07:20 01/23/25 08:18 01/23/25 07:20 01/23/25 08:18 01/23/25 07:20
Vital Signs
Temp Pulse Resp BP Pulse Ox
98.2 F 66 17 106/54 94
01/23/25 07:20 01/23/25 08:18 01/23/25 07:20 01/23/25 08:18 01/23/25 07:20
Intake & Output
01/21/25 01/22/25 01/23/25 01/24/25
06:59 06:59 06:59 06:59
Intake Total 480 / 480 1050 / 1050 360 / 360
Balance 480 / 480 1050 / 1050 360 / 360
Physical Exam
Physical Exam
GEN: NAD
HEENT: EOMI
LUNGS: RA. No audible wheeze
CV: SR on tele
EXT: No edema B/L
NEURO: Gross non-focal
SKIN: No rash
--- NOTE | 2025-01-23 10:18 | W.PN.UPDATE ---
Update Note
Progress Note Update
Patient seen by speech and cleared for diet and on endoscopy there was no obvious ring or stricture noted in the esophagus some of her symptoms could be related to possible recurrent laryngeal nerve injury and vagal nerve injury post CABG since all
of her symptoms started after CABG. Please see EGD note for full findings but no obvious cause for pain found. Her symptoms could be related to possible diabetic gastroparesis and post vagal nerve injury exacerbating her symptoms. Continue small
frequent meals with low residue and low-fat. She does not want to drink the prep for the colonoscopy and only took 2 glasses of the prep last night so unable to perform colonoscopy today. Will schedule her as outpatient if patient willing to
undergo the bowel prep if not can do COLOGUARD. GI will sign off and will be available as needed
[2025-01-23 10:44] LABS: Glucose - Point of Care 68 mg/dl (70-99)
[2025-01-23 11:08] LABS: Glucose - Point of Care 65 mg/dl (70-99)
[2025-01-23 11:35] LABS: Glucose - Point of Care 103 mg/dl (70-99)
[2025-01-23 12:28] LABS: Glucose - Point of Care 83 mg/dl (70-99)
[2025-01-23] MEDS: PLAVIX 75 MG PO (12:59)
[2025-01-23] MEDS: PROTONIX 40 MG PO (12:59)
[2025-01-23] MEDS: LIPITOR 40 MG PO (12:59)
[2025-01-23] MEDS: ALDACTONE 12.5 MG PO (13:02)
[2025-01-23] MEDS: KCL 10 MEQ PO (13:03)
[2025-01-23] MEDS: DIOVAN PO (13:07)
[2025-01-23] MEDS: PACERONE 200 MG PO (13:08)
[2025-01-23] MEDS: TOPROL XL 25 MG PO (13:08)
--- NOTE | 2025-01-23 14:47 | CM ---
Reviewed the chart notes and spoke with the patient and her son at the beside. Son acted as qualitative field coordinator. Discussed PT recommendations of yesterday for SNF. The patient refuses. Will wait for next evaluation to determine discharge plan. CM
continues to be available to patient/family and is monitoring medical plan for needs at discharge.
Plan: Discharge plans will depend on the patient's progress.
--- NOTE | 2025-01-23 15:40 | WOUNDNOTE ---
[facility] RN note: Patient admitted with Acute CHF, Pneumonia.
See H&P for complete history. Lives with family, speaks Argentine.
PMH: PAD-saw Dr. Harris in past, DM, Lupus erythematous, HTN, infected R foot, follows podiatry, former smoker, R great toe amp, R 2nd toe ulcer. R partial 3rd toe amp 12/03/[address] Palafox.
Wound Location and type/assessment: Patient known to service, last seen 08/21/24. Since then R 2nd toe healed, has dry scab on R lateral foot. L medial heel with flat blister, slightly boggy and fluid visible under blister, no drainage. Has darker
discolored skin within ulcer and on Lateral heel light purple venetie. Suspect all wounds are arterial/pressure and diabetic related ulcers. Skin warm and dry, R heel is intact. Reviewed last arterial studies done 12/26/24, + small vessel disease.
Spoke with patient via formal waiter/waitress, confirmed L heel is painful. [facility] ambulated patient to chair, ambulates self with walker. Sacrum is intact, mild MASD btw buttocks skin folds, Calazime in use.
Appetite: poor, recent 50lb weight loss.
Pressure redistribution devices in place: Accumax, applied air cushion on pillow to offload heels. Discussed possible use of offloading heel boots when in bed, nurse thinks patient wont be compliant. Slipper Slides at bedside.
Plan: Today applied Betadine swab to R lateral foot and L medial heel then silicone foam dressings. L lateral heel applied skin prep. R heel applied skin prep and adhesive foam. Confirmed wound care orders with Resident Marivel Aguila and
recommended X ray of L heel to rule out underlying infection and possible Podiatry consult if warranted. Discussed the above with IZAIAH De La Cruz, will update care plan and follow as needed.
Recommend patient follow up with her passenger car inspector.
[2025-01-23 16:45] LABS: Glucose - Point of Care 76 mg/dl (70-99)
--- NOTE | 2025-01-23 18:02 | W.PN.HOSP.TC ---
Addendum entered and electronically signed by Efrain Gee MD 01/23/25 21:23:
Attending Addendum-
I saw and evaluated the patient. I reviewed the resident�s note and agree with findings and plan as documented in the resident�s note. Sub: feels improved after endoscopy. unable to tolerate colon prep. would like to eat. seen with POA/
present. No N/V cp palps fevers chills abd pain. Full 12 point ROS reviewed and negative except as documented Exam: Vitals reviewed in chart GEN-NAD heart incision CDI no m/r/g lungs fine crackles at bases abd soft NT ND pos BS LE 1+ B/L LE edema
Plan:
#AE HFpEF
proBNP on admission-46227.
PICC placed
cont IV Lasix for now cont spironolactone.
Continue metoprolol succinate ER 25 mg.
ECHO -11/2024-HFrEF with EF of 20 to 25%, global hypokinesis with septal akinesis, severe TR with PASP elevated to 63, moderate MR.
Strict I's and O's, weights
Dry weight from [employer]-11/30/24-120 pounds.
trend BMP
#Odynophagia, Dysphagia, Hematemesis-
possible vagus nerve injury vs DM gastroparesis
Speech therapy evaluated the patient and advance diet to IDDSI 6
barium swallow study shows thoracic esophagus with significant esophageal retention
GI on board
upper GI endoscopy 01/23- normal esophagus bx of small nodule
colon as OP
resume diet 6 small meals
#Normocytic anemia-
Likely from anemia of chronic disease versus acute hematemesis.. Hemoglobin stable
Trend H&H. Transfuse if less than 7.
#Type 2 diabetes mellitus-
episodes of lower sugars due to full dose given last PM and NPO today
cont 1/2 dosing
restart home dose on dc
#SLE-
Continue prednisone and PPI
#Essential hypertension-
Continue lisinopril.
#Hyperlipidemia-
Continue statin.
# h/o V fib arrest
- cont amiodarone
#Peripheral neuropathy-
Continue gabapentin.
#History of GERD-
Continue famotidine.
#CAD with Recent CABG-
- 08/2024
- cont Plavix
#Anxiety/depression-
Continue citalopram 20 mg.
DVT prophylaxis-
Continue SCD
CODE STATUS-
Full code
Dispo DC home in am
Time spent coordinating care, review of plan of care with resident, personally reviewed records in EMR, med rec, consults, notes, labs, radiology, d/w nursing and POA � 51 mins
Original Note:
Today's Communication/Plan
-
Continue valsartan, IV Lasix
Assessment / Plan
Assessment / Plan
Xtzzwhobyz-32-agem-old female with PMHx significant for coronary artery disease s/p CABG in September 16, HFrEF with EF of 20 to 25%, IDDM, hyperlipidemia, SLE, peripheral vascular disease, asthma, hypertension, diabetic neuropathy presents to the
hospital for evaluation of a single episode of hematemesis, worsening shortness of breath and weight loss per family. Admitted to hospital for acute decompensated heart failure and hematemesis evaluation.
Plan
#Acute on chronic heart failure with reduced ejection fraction
ECHO -11/22 -HFrEF with EF of 20 to 25%, global hypokinesis with septal akinesis, severe TR with PASP elevated to 63, moderate MR.
proBNP on admission-47883.
Chest x-ray�evidence of cardiomegaly
Patient failed IV access, so was on home oral Lasix regimen until yesterday.
Patient gained 3 KGs since admission
Continue IV Lasix , transition to oral Lasix tomorrow
Cardiology on board
Continue with guideline directed medical therapy�metoprolol 25 mg, spironolactone 12.5 mg
Farxiga 10 mg in the a.m. tomorrow.
Strict I's and O's, monitor weights
Replete electrolytes as needed
#Dysphagia, hematemesis
Likely from Schatzki's ring or neoplasm or peptic stricture or recurrent laryngeal nerve injury during CABG
Speech and GI consulted.
Speech therapy evaluated the patient and advance diet to IDDSI 6.
Speech modified barium swallow�No fluoroscopic evidence for airway aspiration
Continue Protonix 40 mg, p.o.
Endoscopy�Normal esophagus.
- Erythematous mucosa with mild nodularity and oozing on contact in the gastric fundus. Biopsied.
- A single mucosal papule (nodule) found in the stomach. Biopsied.
- Normal examined duodenum.
Her symptoms could be related to possible diabetic gastroparesis and post vagal nerve injury exacerbating her symptoms.
Continue small frequent meals with low residue and low-fat.
Colonoscopy could not be performed due to poor prep, can get a colonoscopy as outpatient.
#Normocytic anemia
Likely from anemia of chronic disease versus acute hematemesis.. Hemoglobin 10.4 >>>9.6
Trend H&H.
Transfuse if less than 7.
#Type 2 diabetes mellitus-
ISS�adjusted to low resistance
Continue Lantus 35 units
#No history of A-fib
Patient on amiodarone related to her VF arrest postoperatively from August 2024
No telemetry evidence of arrhythmias
Will continue for now, consider outpatient monitoring and possible discontinuation if no arrhythmia.
#SLE
Continue prednisone.
#Essential hypertension
Continue lisinopril.
#Hyperlipidemia
Continue statin.
#Peripheral neuropathy
Continue gabapentin.
#History of GERD
Continue famotidine.
#Recent CABG
continue Plavix.
#Anxiety/depression
Continue citalopram 20 mg.
DVT prophylaxis-SCDs
CODE STATUS-
Full code
Anticipated Discharge: 24 - 48 hours
Subjective/Interval History
-
Date of Service: January 23, 2025
Patient does not have any acute overnight issues.
Objective Data
-
Labs:
Laboratory Results
01/23/25
05:29
Sodium 139
Potassium 4.2
Chloride 106
Carbon Dioxide 26
BUN 24 H
Creatinine 1.0
Glucose 94
Calcium 8.3 L
Total Bilirubin 0.6
AST 27
ALT 28
Alkaline Phosphatase 124
Vital Signs:
Vital Signs
Temp Pulse Resp BP Pulse Ox
98.4 F 62 16 107/65 94
01/23/25 15:00 01/23/25 16:16 01/23/25 15:00 01/23/25 16:16 01/23/25 15:00
I&O
01/22/25 01/23/25 01/24/25
06:59 06:59 06:59
Intake Total 1050 / 1050 360 / 360
Balance 1050 / 1050 360 / 360
Physical Exam
-
General: No Apparent Distress
HEENT: Normocephalic and Atraumatic
Respiratory: Clear to Auscultation
Cardiac: Regular Rhythm and S1/S2
GI: Soft, Nontender, Nondistended and Normal Bowel Sounds
Musculoskeletal: Edema, Right Lower Extrem and Edema, Left Lower Extrem
Skin: Warm and Dry
Neuro: Awake, Alert, Oriented and AO x 3
Psych: Calm
[2025-01-23] MEDS: NEURONTIN 800 MG PO (20:46)
[2025-01-23 21:39] LABS: Glucose - Point of Care 133 mg/dl (70-99)
[2025-01-23] MEDS: LANTUS 0.17 UNITS SC (22:16)
[2025-01-24 03:03] LABS: Glucose - Point of Care 122 mg/dl (70-99)
[2025-01-24 03:09] VITALS: BP 111/56
[2025-01-24 04:08] LABS: Hematocrit 30.7 % (37.0-47.0); Hemoglobin 9.5 g/dL (12.0-16.0); Mean Corp Hgb Conc. 30.9 g/dL (33.0-37.0); Mean Corpuscular Hgb 24.2 pg (27.0-31.0); Mean Corpuscular Volume 78.1 fL (81.0-99.0); Mean Platelet Volume 11.2 fL (7.4-10.4); Platelet Count 154 10^3/uL (130-400); Red Blood Cell Count 3.93 10^6/uL (4.20-5.40); White Blood Cell Count 4.6 10^3/uL (4.8-10.8)
[2025-01-24 04:29] LABS: ALT (SGPT) 26 U/L (0-35); AST (SGOT) 24 U/L (14-36); Albumin 3.3 g/dl (3.5-5.0); Alkaline Phosphatase 127 U/L (38-126); Blood Urea Nitrogen 26 mg/dl (7-17); Calcium 8.3 mg/dl (8.4-10.2); Carbon Dioxide 25 mmol/L (22-30); Chloride 107 mmol/L (98-107); Estimated Creatinine Clearance 43 ml/min; Glucose 111 mg/dl (70-99); Potassium 4.3 mmol/L (3.5-5.1); Sodium 139 mmol/L (135-145); Total Bilirubin 0.5 mg/dl (0.2-1.3); Total Protein 6.6 g/dl (6.3-8.2); eGFR 56.11
[2025-01-24 06:00] VITALS: BMI 24.9
[2025-01-24 07:00] VITALS: BP 114/57
--- NOTE | 2025-01-24 07:22 | W.PN.HOSP.TC ---
Addendum entered and electronically signed by Efrain Gee MD 01/24/25 21:09:
Attending Addendum-
I saw and evaluated the patient. I reviewed the resident�s note and agree with findings and plan as documented in the resident�s note. Sub: tawanna PO. feels SOB when laying flat but overal greatly improved. wants to go home. seen with POA/
present. No N/V cp palps fevers chills abd pain. Full 12 point ROS reviewed and negative except as documented Exam: Vitals reviewed in chart GEN-NAD heart incision CDI no m/r/g lungs fine crackles at bases abd soft NT ND pos BS LExt- trace B/L LE
edema
Plan:
#AE HFpEF
- now euvolemic appearing
proBNP on admission-90673.
PICC placed
transition to PO lasix BID and increase spirinolactone
Continue metoprolol succinate
ECHO -11/2024-HFrEF with EF of 20 to 25%, global hypokinesis with septal akinesis, severe TR with PASP elevated to 63, moderate MR.
Strict I's and O's, weights
Dry weight from [employer]-11/30/24-120 pounds.
trend BMP
add farxiga on DC
appreciate cards input ok for DC
#Odynophagia, Dysphagia, Hematemesis-
possible vagus nerve injury vs DM gastroparesis
Speech therapy evaluated the patient and advance diet to IDDSI 6
barium swallow study shows thoracic esophagus with significant esophageal retention
GI on board
upper GI endoscopy 01/23- normal esophagus bx of small nodule
colon as OP
resume diet 6 small meals
#Normocytic anemia-
Likely from anemia of chronic disease versus acute hematemesis.. Hemoglobin stable
Trend H&H. Transfuse if less than 7.
#Type 2 diabetes mellitus-
episodes of lower sugars
decreased home dosing on DC at 20 and 9
#SLE-
Continue prednisone and PPI
#Essential hypertension-
Continue lisinopril.
#Hyperlipidemia-
Continue statin.
# h/o V fib arrest
- cont amiodarone
#Peripheral neuropathy-
Continue gabapentin.
#History of GERD-
Continue famotidine.
#CAD with Recent CABG-
- 08/2024
- cont Plavix
#Anxiety/depression-
Continue citalopram 20 mg.
DVT prophylaxis-
Continue SCD
CODE STATUS-
Full code
Dispo DC home with
Time spent coordinating care, DC planning, review of DC plan of care with resident, transition of care, review of records, med rec/scripts sent electronically, consults, notes, d/w consultants, nursing, family, and CM� 32 mins
Original Note:
Today's Communication/Plan
-
Increase spironolactone to 25 mg
Lasix transition to oral 40 mg twice daily
Started on Farxiga
Assessment / Plan
Assessment / Plan
Kitszoezlj-18-ibog-old female with PMHx significant for coronary artery disease s/p CABG in September 16, HFrEF with EF of 20 to 25%, IDDM, hyperlipidemia, SLE, peripheral vascular disease, asthma, hypertension, diabetic neuropathy presents to the
hospital for evaluation of a single episode of hematemesis, worsening shortness of breath and weight loss per family. Admitted to hospital for acute decompensated heart failure and hematemesis evaluation.
Plan
#Acute on chronic heart failure with reduced ejection fraction
ECHO -11/22 -HFrEF with EF of 20 to 25%, global hypokinesis with septal akinesis, severe TR with PASP elevated to 63, moderate MR.
proBNP on admission-47535.
Chest x-ray�evidence of cardiomegaly
Patient failed IV access, so was on home oral Lasix regimen until yesterday.
Patient gained 3 KGs since admission
Transition to oral Lasix 40 mg, twice daily
Cardiology on board
Continue with guideline directed medical therapy�metoprolol 25 mg, spironolactone increased to 25 mg.
Farxiga 10 mg
Strict I's and O's, monitor weights
Replete electrolytes as needed
#Dysphagia, hematemesis
Likely from Schatzki's ring or neoplasm or peptic stricture or recurrent laryngeal nerve injury during CABG
Speech and GI consulted.
Speech therapy evaluated the patient and advance diet to IDDSI 6.
Speech modified barium swallow�No fluoroscopic evidence for airway aspiration
Continue Protonix 40 mg, p.o.
Endoscopy�Normal esophagus.
- Erythematous mucosa with mild nodularity and oozing on contact in the gastric fundus. Biopsied.
- A single mucosal papule (nodule) found in the stomach. Biopsied.
- Normal examined duodenum.
Her symptoms could be related to possible diabetic gastroparesis and post vagal nerve injury exacerbating her symptoms.
Continue small frequent meals with low residue and low-fat.
Colonoscopy could not be performed due to poor prep, can get a colonoscopy as outpatient.
#Normocytic anemia
Likely from anemia of chronic disease versus acute hematemesis.. Hemoglobin 10.4 >>>9.6
Trend H&H.
Transfuse if less than 7.
#Type 2 diabetes mellitus-
ISS�adjusted to low resistance
Continue Lantus 17 units, will resume home dose at discharge
#No history of A-fib
Patient on amiodarone related to her VF arrest postoperatively from August 2024
No telemetry evidence of arrhythmias
Will continue for now, consider outpatient monitoring and possible discontinuation if no arrhythmia.
#SLE
Continue prednisone.
#Essential hypertension
Continue lisinopril.
#Hyperlipidemia
Continue statin.
#Peripheral neuropathy
Continue gabapentin.
#History of GERD
Continue famotidine.
#Recent CABG
continue Plavix.
#Anxiety/depression
Continue citalopram 20 mg.
DVT prophylaxis-SCDs
CODE STATUS-
Full code
Anticipated Discharge: Today
Subjective/Interval History
-
Date of Service: January 24, 2025
Patient reports having shortness of breath at night. Did not require any supplemental oxygen.
Objective Data
-
Labs:
Laboratory Results
01/24/25
03:34
WBC 4.6 L
Hgb 9.5 L
Hct 30.7 L
Plt Count 154
Sodium 139
Potassium 4.3
Chloride 107
Carbon Dioxide 25
BUN 26 H
Creatinine 1.1 H
Glucose 111 H
Calcium 8.3 L
Total Bilirubin 0.5
AST 24
ALT 26
Alkaline Phosphatase 127 H
Vital Signs:
Vital Signs
Temp Pulse Resp BP Pulse Ox
98.4 F 63 18 111/56 90
01/24/25 03:09 01/24/25 03:09 01/24/25 03:09 01/24/25 03:09 01/24/25 03:09
I&O
01/23/25 01/24/25 01/25/25
06:59 06:59 06:59
Intake Total 360 / 360
Balance 360 / 360
Physical Exam
-
General: Well Developed, Well Nourished and No Apparent Distress
HEENT: Normocephalic and Atraumatic
Respiratory: Crackles
Cardiac: Regular Rhythm and S1/S2
GI: Soft, Nontender, Nondistended and Normal Bowel Sounds
Musculoskeletal: Edema, Right Lower Extrem and Edema, Left Lower Extrem
Skin: Warm and Dry
Neuro: Awake, Alert, Oriented and AO x 3
Psych: Calm
[2025-01-24 08:18] LABS: Glucose - Point of Care 111 mg/dl (70-99)
[2025-01-24] MEDS: PACERONE 200 MG PO (08:44)
[2025-01-24] MEDS: PROTONIX 40 MG PO (08:44)
[2025-01-24] MEDS: LIPITOR 40 MG PO (08:46)
[2025-01-24] MEDS: KCL 10 MEQ PO (08:46)
[2025-01-24] MEDS: FARXIGA 10 MG PO (08:47)
[2025-01-24] MEDS: DIOVAN 40 MG PO (08:47)
[2025-01-24] MEDS: ALDACTONE 12.5 MG PO (08:47)
[2025-01-24] MEDS: TOPROL XL 25 MG PO (08:47)
[2025-01-24] MEDS: PLAVIX 75 MG PO (08:47)
[2025-01-24] MEDS: LASIX 40 MG IV (08:48)
[2025-01-24] MEDS: HEPARIN 5000 UNITS SC (08:48)
[2025-01-24 11:03] VITALS: BP 115/68
[2025-01-24 11:41] LABS: Glucose - Point of Care 94 mg/dl (70-99)
--- NOTE | 2025-01-24 12:59 | VNURNOTE ---
Home Health Liaison met with patient and spouse Can at bedside to discuss [facility] nurse/therapy, visits, schedule and homebound status. Patient is agreeable and understands that visits at home will be 2-3 x per week to assess and teach medical
management.
Patient is aware that [facility] will contact them for start of care in 1-2 days after discharge from .
[facility] referral completed in [facility].
--- NOTE | 2025-01-24 13:51 | W.PN.CARDCBS ---
Addendum entered and electronically signed by James Moran MD 01/24/25 17:08:
I saw and examined the patient on morning rounds.
The Grinder Tender's note was reviewed and I agree with the note.
Comment: Briefly, 64-year-old woman past medical history of ischemic cardiomyopathy with severely reduced ejection fraction presenting with acute decompensated heart failure
Was receiving 40 mg IV Lasix twice daily while here
Overall appeared euvolemic on exam
Okay to transition to 40 mg p.o. Lasix twice daily and continue on discharge
Would continue additional GDMT: Toprol, valsartan, Farxiga, Aldactone
Given known CAD and aspirin allergy continue Plavix as single agent
Stable for discharge from my perspective, outpatient follow-up to be arranged
Original Note:
Today's Communication / Plan
-
D/C to home with cardiology meds and follow up arranged
Impression / Plan
-
Primary care provider: Keli Gonzalez MD
Primary lounge car attendant: Lan Estrada MD
Impression:
Admitted with SOB/JAMA 01/20/25
Acute on chronic HFrEF
ICM EF 20 to 25% by echo 12/19/2024
Severe TR with PAP 63 mmHg
Multi lobar PNA
Progressive dysphagia, chronic abdominal pain
CAD s/p CABG with VILLAFUERTE to LAD, saphenous vein to diagonal, saphenous vein to obtuse marginal at [facility] 08/26/24
Postop VF arrest
Patent VILLAFUERTE to LAD, patent SVG to diagonal, patent SVG to OM by postop cardiac cath
s/p Martini [employer] SC ICD at [facility] 08/2024
h/o C. difficile postop CABG at [facility]
Anaphylactic aspirin allergy with previous mild allergic reaction during attempted aspirin desensitization therapy at [facility] 08/24/24
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
DM 2
Diabetic neuropathy
Lupus
Hypertension
Dyslipidemia
Echo 07/2024: tricuspid regurgitation increased from trace to severe and systolic pulmonary artery pressure previously was estimated at 25 to 30 mmHg and now is estimated at 63 mmHg.
Echo 12/09/24: finds severely reduced left ventricular systolic function with ejection fraction of 20-25%. Global hypokinesis with septal akinesis. Stage III diastolic dysfunction. Moderate mitral regurgitation, severe tricuspid regurgitation with
estimated pulmonary artery pressure of 63 mmHg.
Plan:
-Patient previously admitted to [facility] 08/20/2024 until 08/26/2024 with NSTEMI and MV CAD. Patient with previous anaphylactic allergy to aspirin and there was an attempt at aspirin desensitization starting on the night of 08/21/2024 and patient had
swollen eyes and hand tremors so desensitization therapy was stopped and the family was not interested in another attempt. It then came to light that the patient's family member is a senior mobile lab technician at [facility] and the family requested transfer
which was performed on 08/26/2024. As noted above patient had CABG and postop suffered VF arrest. Post CABG cardiac cath showed patent grafts and patient ultimately had an Martini [employer] Eric ICD placed. Patient also had C. difficile postop in the
[facility] there were also right toe amputations that were performed all as part of her postop course. Patient came back to [facility] ER on 01/20/2025 with dysphagia and progressive weight loss. Cardiology consulted for acute HFrEF and also to provide
preprocedure cardiovascular risk stratification for planned GI workup.
-Patient had upper endoscopy 01/23/2025 and they did not find any obvious findings. Despite attempts at colonoscopy prep it was inadequate and colonoscopy was not attempted and she was recommended to follow-up as an outpatient, GI signed off.
-Weight is stable at 140 lbs on 01/24/2025. Cre bumped to 1.1 on 01/24/2025 with ongoing Lasix 40 mg IV BID. Reviewed with resident and made a plan for Lasix 40 mg PO BID upon discharge to home
-Outpatient dose of Toprol-XL 25 mg daily has been continued
-New to valsartan 40 mg daily this admission, it sounds as though this was ordered as an outpatient and patient may have been noncompliant for unclear reasons, there may have just been some confusion. Regardless new Rx e-scribed by me prior to
discharge
-Patient was started on Jardiance [address] Estrada prior to admission, but was not taking this prior to admission. Again, reconciled discharge medications and prescribed Jardiance 10 mg daily upon discharge
-Outpatient dose of spironolactone 12.5 mg daily has been continued
-Patient was taking amiodarone 200 mg daily prior to admission and this may have been started for her post CABG VF arrest. We have not seen any atrial arrhythmia this admission. Patient is not chronically on OAC
-Outpatient dose of Plavix 75 mg daily has been continued and this will presumably be long-term as patient cannot take aspirin due to history of anaphylactic allergy
-Cardiology follow-up arranged
[facility] 01/21/2025: She has a complicated past medical history which includes coronary artery disease with coronary artery bypass grafting surgery in August 2024 at [facility] with a very complicated and prolonged postoperative course.
She is brought to the emergency department by her and daughter for evaluation of epigastric abdominal discomfort, left-sided abdominal pain which she believes has been worsening since her coronary artery bypass grafting surgery in August
2024. She is also experienced reduced appetite, dysphagia and a 60 pound weight loss over the past 6 months (since her coronary artery bypass grafting surgery in August 2024). She has also experienced increasing lower extremity edema and
increasing dyspnea on exertion over the past month and is found to have acute congestive heart failure. There is also concern for pneumonia with new left and progressive right lower lobe pneumonia. Cardiology is consulted regarding further
evaluation and management of acute on chronic congestive heart failure.
Progress Note - Jewelry Cutter
Subjective
Date of Service: January 24, 2025
Less SOB
Objective
Labs:
01/24/25 03:34
01/24/25 03:34
Labs
Hgb 9.5 g/dL (12.0-16.0) L 01/24/25 03:34
Hct 30.7 % (37.0-47.0) L 01/24/25 03:34
Plt Count 154 10^3/uL (130-400) 01/24/25 03:34
Sodium 139 mmol/L (135-145) 01/24/25 03:34
Potassium 4.3 mmol/L (3.5-5.1) 01/24/25 03:34
BUN 26 mg/dl (7-17) H 01/24/25 03:34
Creatinine 1.1 mg/dL (0.6-1.0) H 01/24/25 03:34
Glucose 111 mg/dl (70-99) H 01/24/25 03:34
Vital Signs and I&O:
Vital Signs
Temp Pulse Resp BP Pulse Ox
97.8 F 65 18 115/68 99
01/24/25 11:03 01/24/25 11:03 01/24/25 11:03 01/24/25 11:03 01/24/25 11:03
Vital Signs
Temp Pulse Resp BP Pulse Ox
97.8 F 65 18 115/68 99
01/24/25 11:03 01/24/25 11:03 01/24/25 11:03 01/24/25 11:03 01/24/25 11:03
Intake & Output
01/22/25 01/23/25 01/24/25 01/25/25
06:59 06:59 06:59 06:59
Intake Total 1050 / 1050 360 / 360
Balance 1050 / 1050 360 / 360
Physical Exam
Physical Exam
GEN: NAD
LUNGS: RA. No audible wheeze
CV: SR on tele
--- NOTE | 2025-01-24 14:38 | CM ---
Pt cleared for discharge to home with home care. CM met with pt and her who have requested [facility] for services. Kyara Baer notified of same.
Plan: Discharge to home via family with [facility] services.
[2025-01-24 15:00] VITALS: BP 102/54
--- NOTE | 2025-01-25 18:24 | W.DCSUMMARY ---
Addendum entered and electronically signed by Efrain Gee MD 01/25/25 20:31:
Read, reviewed and agree
Chip Gee MD
Original Note:
Documented by User: Marivel Do MD, Resident 01/25/25 19:12
Discharge Summary
Discharge Data
Date of Admission: 01/20/25
Date of Discharge: 01/24/25
-
Pending Results: No
Hospital Course
Discharging Physician : Dr. Gee, Dr. Orat
Disposition : Home with home care
Primary care physician : Dr. Keli Barraza
Principal Discharge diagnosis : Acute exacerbation of HFrEF, hematemesis, type II DM.
Hospital Course : 64yoF with a history of coronary artery disease s/p CABG in August 2024, CHF with EF of 20-25%, hypertension, hyperlipidemia, insulin dependent diabetes, and lupus presenting with her and daughter for evaluation of
epigastric abdominal pain, odynophagia, intermittent hemaemesis, weight loss, worsening LE edema, progressively worsening sob, which is worse at night. At presentation in the ER�stable vital signs, hemoglobin�10.1, normal white count, stable renal
function, elevated BNP of 13,000, chest x-ray evidence of cardiomegaly, possible RLL pneumonia. Cardiology and GI was consulted. Her acute problems have been managed as below. PT OT recommended home health at discharge. At discharge patient was
hemodynamically stable, and clinically improved.
#Acute on chronic heart failure with reduced ejection fraction
Patient was on home Lasix dose for a day because of the difficult IV access, later transitioned to IV Lasix 40 mg twice daily.
Cardiology continued with guideline directed medical therapy for heart failure with metoprolol 25 mg, spironolactone 12.5 mg. Valsartan 40 mg added. Patient was also started on Farxiga 10 mg. Electrolytes repleted as needed. Monitored daily
weights, strict I's and O's. At discharge, spironolactone increased to 25 mg.
#Dysphagia, hematemesis, odynophagia
Likely from Schatzki's ring or neoplasm or peptic stricture or recurrent laryngeal nerve injury during CABG .Speech therapy evaluated, Speech modified barium swallow�No fluoroscopic evidence for airway aspiration, the patient and advanced diet to
IDDSI 6. GI plan on doing colonoscopy and endoscopy. Colonoscopy deferred to outpatient due to poor prep. Upper GI endoscopy�no obvious source of bleeding, nodule identified was sent for pathology, follow-up results as outpatient with GI. Patient
was on Protonix.
#Patient was continued on amiodarone related to her V-fib arrest postoperatively from August 2024. Monitored on telemetry.
#SLE�prednisone
#Essential hypertension�lisinopril
#Hyperlipidemia�statin
#Type II DM�her Lantus and aspart adjusted according to her blood sugars. Was discharged on 20 units Lantus and 7 units aspart.
Important imaging findings :
Ultrasound abdomen�01/20/2025� 1. Mild to moderate diffuse liver disease (possibly passive hepatic venous congestion).
2. No sonographic evidence for biliary obstruction or ascites.
3. Previous cholecystectomy.
Abdomen/pelvis CT�01/20/2025�Mild ascites. New.
Findings suggesting moderate volume overload or third spacing. New.
Limited exam without oral and IV contrast.
Too small to characterize hypodense left renal lesion likely a benign cyst. Stable.
Moderate fecal material throughout the colon. Progressed
Mild diverticulosis. Stable
Findings suggesting mild bibasilar pulmonary fibrosis. Stable
Chest x-ray�01/20/2025� Findings suggesting new left and progressed right lower lobe pneumonia. Pleural thickening on the right cannot be excluded. Clinical and laboratory correlation recommended.Mild cardiomegaly. New
Discharge Plan
-
Patient Disposition: Home with Home Care
Discharge Diagnosis/Procedures: heart failure with reduced ejection fraction, hematemesis, normocytic anemia, type 2 dm
Diet: 2 Gram Sodium, Diabetic, Carb Controlled and Restrict fluids to 64 oz
Other Services: VN, PT and OT
Specialty Instructions: Weigh Daily- Call MD for wt gain/loss 3 lbs overnight/5 lbs in 1 week
Activity Restrictions/Additional Instructions:
Wound Care Instructions
R lateral foot and L medial heel: [place] with Betadine swab allow to dry then apply foam dressing, change q 2 days and prn soilage.
Pillows under calves to offload heels when in bed or sitting with legs elevated
Follow up with Master Glazier
BMP in 1 week
Referrals:
Terri Bowman MD [Active, Gastroenterology] - in two to four weeks
Keli Hernandez MD [Family Provider, Internal Medicine] - in less than 1 week
Lan Estrada MD [Active, Cardiology] - 02/07/25 2:00 pm
Referral Note: You have an appointment to see Dr. Estrada's physician stores assistant, Tamar, at the [facility] on 02/07/2025 at 2 PM. Please call [phone] if you need to reschedule
Additional Discharge Medication Instructions: -Increase Lasix to 40 mg twice a day (8AM and 4 PM daily)
-Start taking valsartan 40 mg once a day
-Restart Jardiance 10 mg once a day
Prescriptions:
New
furosemide 40 mg Tablet
40 mg PO BID AT 0800,1600 Qty: 60 6RF
valsartan 40 mg Tablet
40 mg PO DAILY Qty: 30 11RF
Jardiance 10 mg tablet
10 mg PO DAILY Qty: 30 6RF
spironolactone 25 mg Tablet
25 mg PO DAILY Qty: 30 0RF
insulin glargine [Lantus U-100 Insulin] 100 unit/mL solution
20 unit SC QHS Qty: 10 0RF
insulin aspart U-100 100 unit/mL solution
7 unit SC TID Qty: 10 0RF
Continued
gabapentin [Neurontin] 800 MG tablet
800 mg PO DAILYPRN PRN (Reason: nerve pain)
acetaminophen 325 mg Tablet
650 mg PO Q4HPRN PRN (Reason: mild pain/DOMINGO/temp> 100.4F) Qty: 0 0RF
atorvastatin 40 mg tablet
40 mg PO DAILY
potassium chloride 10 mEq capsule, extended release
10 meq PO DAILY
amiodarone 200 mg tablet
200 mg PO DAILY
famotidine 40 mg tablet
40 mg PO DAILY
clopidogrel 75 mg tablet
75 mg PO DAILY
citalopram 20 mg tablet
20 mg PO DAILY
metoprolol succinate 25 mg Tablet Extended Release 24 Hr
25 mg PO DAILY
Discontinued
insulin glargine [Lantus U-100 Insulin] 100 unit/mL solution
35 unit SC HS
insulin aspart U-100 [Novolog FlexPen U-100 Insulin] 100 unit/mL (3 mL) insulin pen
25 unit SC AC
spironolactone 25 mg tablet
12.5 mg PO DAILY
furosemide 40 mg tablet
40 mg PO DAILY
Discharge Orders:
Discharge Patient (As Directed); Ordered 01/24/25
Ordered By: Marivel Do
Discharge Date and Time
Discharge Date/Time: 01/24/25 16:56
Print Language: BRUNEIAN

Documented by User: Efrain Gee MD 01/25/25 20:30
Discharge Summary
Discharge Data
Date of Admission: 01/20/25
Date of Discharge: 01/25/25
Discharge Plan
-
Patient Disposition: Home with Home Care
Discharge Diagnosis/Procedures: heart failure with reduced ejection fraction, hematemesis, normocytic anemia, type 2 dm
Diet: 2 Gram Sodium, Diabetic, Carb Controlled and Restrict fluids to 64 oz
Other Services: VN, PT and OT
Specialty Instructions: Weigh Daily- Call MD for wt gain/loss 3 lbs overnight/5 lbs in 1 week
Activity Restrictions/Additional Instructions:
Wound Care Instructions
R lateral foot and L medial heel: [place] with Betadine swab allow to dry then apply foam dressing, change q 2 days and prn soilage.
Pillows under calves to offload heels when in bed or sitting with legs elevated
Follow up with Master Glazier
BMP in 1 week
Referrals:
Terri Bowman MD [Active, Gastroenterology] - in two to four weeks
Keli Hernandez MD [Family Provider, Internal Medicine] - in less than 1 week
Lan Estrada MD [Active, Cardiology] - 02/07/25 2:00 pm
Referral Note: You have an appointment to see Dr. Estrada's physician stores assistant, Tamar, at the [place] office on 02/07/2025 at 2 PM. Please call [phone] if you need to reschedule
Additional Discharge Medication Instructions: -Increase Lasix to 40 mg twice a day (8AM and 4 PM daily)
-Start taking valsartan 40 mg once a day
-Restart Jardiance 10 mg once a day
Prescriptions:
New
furosemide 40 mg Tablet
40 mg PO BID AT 0800,1600 Qty: 60 6RF
valsartan 40 mg Tablet
40 mg PO DAILY Qty: 30 11RF
Jardiance 10 mg tablet
10 mg PO DAILY Qty: 30 6RF
spironolactone 25 mg Tablet
25 mg PO DAILY Qty: 30 0RF
insulin glargine [Lantus U-100 Insulin] 100 unit/mL solution
20 unit SC QHS Qty: 10 0RF
insulin aspart U-100 100 unit/mL solution
7 unit SC TID Qty: 10 0RF
Continued
gabapentin [Neurontin] 800 MG tablet
800 mg PO DAILYPRN PRN (Reason: nerve pain)
acetaminophen 325 mg Tablet
650 mg PO Q4HPRN PRN (Reason: mild pain/DOMINGO/temp> 100.4F) Qty: 0 0RF
atorvastatin 40 mg tablet
40 mg PO DAILY
potassium chloride 10 mEq capsule, extended release
10 meq PO DAILY
amiodarone 200 mg tablet
200 mg PO DAILY
famotidine 40 mg tablet
40 mg PO DAILY
clopidogrel 75 mg tablet
75 mg PO DAILY
citalopram 20 mg tablet
20 mg PO DAILY
metoprolol succinate 25 mg Tablet Extended Release 24 Hr
25 mg PO DAILY
Discontinued
insulin glargine [Lantus U-100 Insulin] 100 unit/mL solution
35 unit SC HS
insulin aspart U-100 [Novolog FlexPen U-100 Insulin] 100 unit/mL (3 mL) insulin pen
25 unit SC AC
spironolactone 25 mg tablet
12.5 mg PO DAILY
furosemide 40 mg tablet
40 mg PO DAILY
Discharge Orders:
Discharge Patient (As Directed); Ordered 01/24/25
Ordered By: Marivel Do
Discharge Date and Time
Discharge Date/Time: 01/24/25 16:56
Print Language: BRUNEIAN
== END 2025-01-24 16:56 | disposition home health service (06) | DRG 291 ==
LOC: 3 WEST ACU 14:55
PROVIDERS: Physician Assistant; Radiology Vascular & Interventional Radiology; Registered Nurse; Student in an Organized Health Care Education/Training Program; ADMITTING PHYSICIAN Hospitalist; ATTENDING PHYSICIAN Family Medicine; CONSULT PHYSICIAN Internal Medicine Cardiovascular Disease; CONSULT PHYSICIAN Internal Medicine Gastroenterology; EMERGENCY PHYSICIAN Student in an Organized Health Care Education/Training Program; FAMILY PHYSICIAN Internal Medicine
PROC: B5181ZA Fluoroscopy of Superior Vena Cava using Low Osmolar Contrast, Guidance (ICD-10-PCS; 2025-01-22)
PROC: 02HV33Z Insertion of Infusion Device into Superior Vena Cava, Percutaneous Approach (ICD-10-PCS; 2025-01-22)
PROC: 0DB58ZX Excision of Esophagus, Via Natural or Artificial Opening Endoscopic, Diagnostic (ICD-10-PCS; 2025-01-23)
PROC: 0DB68ZX Excision of Stomach, Via Natural or Artificial Opening Endoscopic, Diagnostic (ICD-10-PCS; 2025-01-23)
DX: I11.0 Hypertensive heart disease with heart failure (principal); I50.33 Acute on chronic diastolic (congestive) heart failure; J18.1 Lobar pneumonia, unspecified organism; K92.0 Hematemesis; R18.8 Other ascites; K31.89 Other diseases of stomach and duodenum; R13.10 Dysphagia, unspecified; Z88.6 Allergy status to analgesic agent; Z87.892 Personal history of anaphylaxis; I25.10 Atherosclerotic heart disease of native coronary artery without angina pectoris; Z95.1 Presence of aortocoronary bypass graft; E78.00 Pure hypercholesterolemia, unspecified; E11.51 Type 2 diabetes mellitus with diabetic peripheral angiopathy without gangrene; E11.40 Type 2 diabetes mellitus with diabetic neuropathy, unspecified; D63.8 Anemia in other chronic diseases classified elsewhere; F41.9 Anxiety disorder, unspecified; G89.29 Other chronic pain; I27.20 Pulmonary hypertension, unspecified; J45.998 Other asthma; K59.00 Constipation, unspecified; K76.9 Liver disease, unspecified; M32.9 Systemic lupus erythematosus, unspecified; Z79.02 Long term (current) use of antithrombotics/antiplatelets; Z79.4 Long term (current) use of insulin; Z79.52 Long term (current) use of systemic steroids; Z79.899 Other long term (current) drug therapy; Z89.429 Acquired absence of other toe(s), unspecified side; Z90.49 Acquired absence of other specified parts of digestive tract; Z11.52 Encounter for screening for COVID-19
CPT/HCPCS: 88305; 36573; 71046; 74176; 74230; 76700; 80048; 80053; 82962; 83036; 83690; 83735; 83880; 84145; 84443; 84484; 85025; 85027; 87502; 87811; 92610; 92611; 93005; 96374; 96375; 97163; 97167; 99285

== ENCOUNTER → 2025-02-12 10:27 | Outpatient (REF) | payer OTHER, SELFPAY ==
[2025-02-12 13:03] LABS: Blood Urea Nitrogen 34 mg/dl (7-17); Calcium 8.5 mg/dl (8.4-10.2); Carbon Dioxide 25 mmol/L (22-30); Chloride 107 mmol/L (98-107); Glucose 154 mg/dl (70-99); Potassium 4.1 mmol/L (3.5-5.1); Sodium 142 mmol/L (135-145); eGFR 35.79
== END ==
LOC: REG 10:27
PROVIDERS: ATTENDING PHYSICIAN Internal Medicine Cardiovascular Disease; FAMILY PHYSICIAN Internal Medicine
DX: I10 Essential (primary) hypertension (principal)
CPT/HCPCS: 36415; 80048

== ENCOUNTER 2025-02-13 14:41 | Inpatient (IN) | payer OTHER, SELFPAY ==
[2025-02-13] VITALS (7 sets, daily range): BP systolic 79–139; BP diastolic 60–72; BMI 28.1
[2025-02-13 12:01] LABS: Hematocrit 35.0 % (37.0-47.0); Hemoglobin 10.5 g/dL (12.0-16.0); Mean Corp Hgb Conc. 30.0 g/dL (33.0-37.0); Mean Corpuscular Volume 76.6 fL (81.0-99.0); Nucleated Red Blood Cells % 0 %; Platelet Count 154 10^3/uL (130-400); Red Cell Dist. Width 17.9 % (11.5-14.5)
[2025-02-13 12:34] LABS: Troponin I < 0.012 ng/ml
--- NOTE | 2025-02-13 13:05 | ED.GENMED ---
History of Present Illness
General
Chief Complaint: Cardiac Symptoms
Source: patient and family
Time Seen by Provider: 02/13/25 11:21
History of Present Illness
History of Present Illness:
64-year-old Azeri-speaking female with past medical history of mild cognitive impairment, CAD, hypertension, hyperlipidemia, peripheral vascular and arterial disease, insulin-dependent diabetes presenting to the ER with son for worsening shortness
of breath, bilateral lower extremity edema and a wound to the left heel that has been gradually worsening and malodorous. Patient was supposed to get an arteriogram today with vascular surgery but this had to be postponed until February for unknown
reason, patient states that due to her shortness of breath and worsening edema is why she decided to come to the ER. No known fevers, chills, rigors, cough, chest pain, palpitations, diaphoresis, hemoptysis, abdominal pain, nausea, vomiting.
Patient states that she feels as if both breasts are also swelling which has happened before when she is volume overloaded. Patient does note recent admission here for diuresis and CHF exacerbation.
Past History
Past History
ED Past Medical History: Asthma, HTN, Hypercholesterolemia, IDDM, Psychiatric and Other (Cellulitis, diabetic neuropathy, peripheral vascular disease, lupus, chronic steroid use)
ED Past Surgical History: Cholecystectomy and Orthopedic (right great toe amputation)
Social History
Tobacco: Non-smoker
Alcohol: None
Drug: None
Personal:
Living: with family
Review of Systems
Review of Systems
All Other Systems: ROS reviewed and negative except as documented in HPI and ROS
Phy Exam
Physical Exam
Physical Exam:
GENERAL: Alert , in no apparent distress, appears older than stated age
EYE: clear conjunctiva b/l
HEAD: NCAT
ENT: o/p clr, mmm.
CARDIAC: Regular rate and rhythm .
LUNGS: Clear breath sounds bilaterally, no acute respiratory distress, no wheezes/rales/rhonchi
ABDOMEN: Soft, without focal tenderness, no r/g, no cvat, negative Aviles sign, no tenderness at McBurney's point
NEUROLOGICAL: Alert and oriented
SKIN: Warm and dry, ulceration that is malodorous but nonerythematous to the left heel, tender to palpation
MUSCULOSKELETAL: Edema through bilateral lower extremities into the thighs, skin is taut and shiny, cap refill is approximately 2 seconds, faint pedal pulse bilateral
PSYCH: Normal and appropriate interaction.
Scores
Heart Failure Risk
Heart Failure Risk Score: Not Applicable
Heart Score for Chest Pain Patients
STEMI patient?: Not applicable
Withdrawal Assessment of Alcohol
Withdrawal Assessment Completed?: Not applicable
Course
Orders/Labs/Results
Orders:
Orders
02/13/25 09:48
Electrocardiogram (*1) Urgent
Reason for Study: Shortness of Breath
EKG- Treatment ONCE
02/13/25 11:24
CR Chest - 2 Views Urgent
Comment:
Reason For Exam: SOB, edema
02/13/25 11:50
Complete Blood Count/With Diff Urgent
Erythrocyte Sed Rate Urgent
Comment: ADD ON
NT-proBNP Urgent
Troponin I Urgent
02/13/25 12:23
Urinalysis Reflex To Culture Urgent
Date Specimen was Collected: 02/13/25
Time Specimen was Collected: 12:22
Urine Microscopic Reflex Cult Urgent
Urine Culture Urgent
YOVANI Source: U
Specimen Description:
Date Specimen was Collected: 02/13/25
Time Specimen was Collected: 12:22
02/13/25 12:29
C-Reactive Protein Routine
Comment: ADD ON
Comprehensive Metabolic Panel Routine
Comment: MAG
Magnesium Routine
02/13/25 13:58
Furosemide [Lasix] 40 mg IV NOW STA
Piperacillin/Tazo 3.375 Gram [Zosyn] 3.375 gram in 50 ml IV NOW
CR Foot - Left Min 3 Views Urgent
Comment:
Reason For Exam: concern for osteo
02/13/25 13:59
Add On- LAB Urgent
Tests Added?: esr/crp
02/13/25 14:15
Admit/Transfer Patient As Directed
Co-Sign Provider:
Level of Care: Inpatient admission
Assign to:: Telemetry
Physician / Group: Hospitalist
Diagnosis: foot infection
Reason for Telemetry: Medication for Arrhythmia
Date to Stop Telemetry: 02/15/25
Time to Stop Telemetry: 11:00
Reason for Hospitalization: .
Expected length of stay greater than two midnights?: Yes
ELOS- Estimated Length of Stay in days: 3
I certify the patient meets the requirements for IP care: Yes
Lactic Acid Q4H
Comment: CANCEL 2nd LACTIC ACID IF 1st LACTIC ACID IS LESS THAN 2
Blood Culture Q30M
YOVANI Source: Blood/Venous
Specimen Description:
02/13/25 14:16
PRN Pain Medication Management As Directed
May give lesser potent ordered pain med per pt: Yes
preference::
Protocol:: Medication orders for pain may be administered in a
manner that supports deferring to patient preference
when the pt is:
- Requesting an ordered lesser potent pain medication.
Least to most potent pain medications are defined
as: acetaminophen < NSAID < tramadol < opioids
(morphine, oxycodone, hydromorphone).
- Requesting a lesser dose of the same medication IF
ORDERED.
- Requesting a less intrusive route of administration
if both routes are prescribed by the provider (PO <
IV).
02/13/25 14:23
Vancomycin [Vancocin] 2,000 mg 0.9% Sodium Chloride 500 ml [Nss] 500 ml IV NOW
02/13/25 14:33
Consult Interventional Radiology [IRAD CONSULT] Urgent
Consulting Provider: Jv Carrion
Was physician already notified: Yes
Procedure being ordered, including laterality if applicable: Central line placement
Acknowledgement that appropriate orders are entered: Yes
02/13/25 14:45
Blood Culture Q30M
YOVANI Source: Blood/Venous
Specimen Description:
02/13/25 18:15
Lactic Acid Q4H
Comment: CANCEL 2nd LACTIC ACID IF 1st LACTIC ACID IS LESS THAN 2
02/15/25 11:00
DC Protocol for Telemetry ONCE
Abnormal Lab Results
02/13/25 02/13/25
11:50 12:23
WBC 4.3 L 10^3/uL
(4.8-10.8)
Hgb 10.5 L g/dL
(12.0-16.0)
Hct 35.0 L %
(37.0-47.0)
MCV 76.6 L fL
(81.0-99.0)
MCH 23.0 L pg
(27.0-31.0)
MCHC 30.0 L g/dL
(33.0-37.0)
RDW 17.9 H %
(11.5-14.5)
Absolute Lymphs (auto) 0.7 L 10^3/uL
(1.2-3.4)
Lymphocytes % 16.7 L %
(20.5-51.1)
ESR 105 H mm/hour
(0-20)
Leukocyte Esterase Rfl 2+ A
(Negative)
Urine Bacteria (Reflex) Few A
(Negative)
Urine Albumin (Reflex) 1+ A
(Neg - Trace)
02/13/25 11:50
02/13/25 11:50
Vital Signs
Initial and Last Documented VS:
Initial Vital Signs
Temp Pulse Resp BP Pulse Ox
97.8 F 76 16 136/72 95
02/13/25 09:51 02/13/25 09:51 02/13/25 09:51 02/13/25 09:51 02/13/25 09:51
Last Documented Vital Signs
Temp Pulse Resp BP Pulse Ox
97.9 F 79 16 127/70 97
02/13/25 15:15 02/13/25 16:00 02/13/25 16:00 02/13/25 16:00 02/13/25 16:00
MDM/Problems Addressed
Differential Diagnosis Includes:
- Peripheral vascular wound
- Diabetic foot wound
- Worsening peripheral vascular/arterial disease
- CHF
- Valvular dysfunction
- DVT/PE
MDM/Problems Addressed:
64-year-old female with multiple chronic medical conditions presenting to the ER with exacerbation of these conditions as well as worsening wound to the left heel. Recent admission here and discharged home however family stating patient seems to be
continuing to deteriorate. Patient has not had any fevers but son states that the wound to the left heel is significantly malodorous and is concerned for infection. Patient has multiple risks including known peripheral vascular and arterial
disease, insulin-dependent diabetes and is quite sedentary. Will obtain labs, imaging with anticipation that patient will need admission for further evaluation and treatment. It is noted that patient was very difficult IV stick and needed central
line last time she was here.
Chronic conditions affecting care: DM and PVD
Acute Exacerbation and/or Progression of Chronic Illness: DM and PVD
*Radiology
Radiology exam reviewed: preliminary read by ED provider (Cardiomegaly)
*Pulse Oximetry
SaO2: 95
Oxygen Mode of Delivery: Room air
Patient hypoxic: no
*EKG
Heart Rate: 76
Rate: normal
Rhythm: sinus
Welch: left axis deviation
QRS Pattern: left bundle branch block
*Banjo Repair Person Interpretation
Rate: normal
Rhythm: sinus
*Critical Care Note
Total Time (30-74mins, 75-104mins- exclusive of procedures): Not Applicable
Data Reviewed
Review of Other/Old Records Reveals: Labs, Records and Discharge Summary
Source: patient and records
Patient Management
Discussion with other providers: Hospitalist and Rn Acls
Escalation/DeEscalation of care consider admission/obs:
Hospitalist team notified and accepts for continued evaluation and treatment. IR team to help with IV access given multiple attempts were unsuccessful. IV antibiotics ordered. Hospitalist team to place consults as needed. Vascular team can
consult as needed as well.
ED Attending Note
-
Portions of this chart may have been created with voice recognition software.� Occasional wrong word or��sound alike� substitutions may have occurred due to the inherent limitations of voice recognition software.
Discharge Plan
Departure
Patient Disposition: Admit
Date of Disposition: 02/13/25
Time of Disposition: 14:00
Presentation/result/management discussed w/ accepting MD/DO: Hospitalist
Discharge Problem:
PAD (peripheral artery disease), CHF (congestive heart failure), Wound of left foot
Interventions
Interventions:
*Risk Screen - Suicide Last Done: 02/13/25 09:51
*Neglect/Abuse Screening Last Done: 02/13/25 09:51
*ED- Fall Risk Assessment Last Done: 02/13/25 14:58
*ED COVID-19 Vaccine History Last Done: 02/13/25 14:22
ED- Pulmonary Assessment Last Done: 02/13/25 13:07
ED- Cardiac Assessment Last Done: 02/13/25 13:07
[2025-02-13 13:10] LABS: Urine Character Slightly Cloudy (Clear)
[2025-02-13 13:52] LABS: Urine Squamous Cell 0-2 /LPF (Few); Urine Urothelial Cell 0-2 /LPF (FEW)
[2025-02-13 13:53] LABS: Urine Red Blood Cell 0-2 /HPF (0-2); Urine White Cell 0-2 /HPF (0-5)
--- NOTE | 2025-02-13 14:11 | HPS.HSE ---
Family Physician
-
Family Physician: Keli Hernandez
Chief Complaint
-
Worsening left heel wound with increasing bilateral leg edema since discharged from on 01/25/25.
History of Present Illness
64-year-old presenting to the ER with son for worsening bilateral lower extremity edema, worsening wound to the left heel with malodorous. Patient was supposed to get an arteriogram with vascular surgery but this had to be postponed until February for
scheduling issue. family also reported exertional shortness of breath. No known fevers, chills, rigors, cough, chest pain, palpitations, diaphoresis, hemoptysis, abdominal pain, nausea, vomiting. Patient states that left foot is painful in the
heel area only.
Medical History
Past Medical History
Past Medical History: Reports Other (CAD, Asthma, Hypertension, Hyperlipidemia, DM, Diabetic neuropathy, Peripheral vascular disease, CHF, history of C. difficile colitis)
Past Surgical History: Reports Other (No recent major surgery)
Social History
Tobacco: Former Smoker
Alcohol: None
Drug: None
Personal:
Living: With Family
Employment: Not Employed
Family History
Family History: Other (Mother of diabetes and heart related issues)
Allergies / Home Medications
Allergies reflects when Allergies were last updated in [facility].
Home Medications with original date entered in [facility]
Allergy/Medication List:
Allergies
Allergy/AdvReac Type Severity Reaction Status Date / Time
aspirin Allergy Anaphylaxis Verified 02/08/25 13:56
/rash
Home Medications
gabapentin 800 mg tablet (Neurontin) 400 mg PO DAILYPRN PRN nerve pain 05/09/21
amiodarone 200 mg tablet 200 mg PO DAILY Arrhythmia 01/20/25
atorvastatin 40 mg tablet 40 mg PO DAILY High Cholesterol 01/20/25
citalopram 20 mg tablet 20 mg PO DAILY Mental Health/Anxiety 01/20/25
clopidogrel 75 mg tablet 75 mg PO DAILY Blood Clot Prevention/Tx 01/20/25
metoprolol succinate 25 mg tablet,extended release 24 hr 25 mg PO DAILY Heart Disease/Condition 01/20/25
empagliflozin 10 mg tablet (Jardiance) 10 mg PO DAILY Heart Failure #30 tabs 01/24/25
spironolactone 25 mg tablet 25 mg PO DAILY #30 tabs 01/24/25
furosemide 40 mg tablet 80 mg PO BID AT 0800,1600 Heart Failure 02/13/25
insulin aspart U-100 100 unit/mL subcutaneous solution 7 sliding scale dose SC AC 02/13/25
insulin glargine 100 unit/mL subcutaneous solution (Lantus U-100 Insulin) 35 unit SC HS 02/13/25
losartan 25 mg tablet 25 mg PO DAILY 02/13/25
Review of Systems
-
History Source: Patient
A 12 point ROS was completed and negative except as noted: Yes
Constitutional: Denies Fever
EENT: Denies Sore Throat
Respiratory: Denies Cough
Cardiac: Denies Chest Pain
Abdomen/GI: Denies Abdominal Pain
: Denies Dysuria
Musculoskeletal: Reports Edema and Other (left heel pain and wound)
Skin: Denies Itching
Neurological: Denies Dizzy, Headache or Numbness
Hematologic/Lymphatic: Denies Swollen Glands
Psych: Denies Panic Disorder
Physical Exam
Vital Signs
Vital Signs
Temp Pulse Resp BP Pulse Ox
97.8 F 75 26 136/72 95
02/13/25 09:51 02/13/25 12:00 02/13/25 12:00 02/13/25 09:51 02/13/25 13:09
Physical Exam
General: No Apparent Distress and Comfortable
HEENT: Moist mucous membranes and Atraumatic
Respiratory: Rales (at bases ); No Wheezes
Cardiac: S1/S2 and Regular Rhythm
GI: Soft and Non Tender
Genito-urinary: No Cha
Musculoskeletal: No Clubbing, Edema, Left Lower Extremity and Edema, Right Lower Extremity
Skin: Other (left heel ulcer with foul smell )
Neuro: Alert, Oriented and Nonfocal/grossly intact; No Facial Droop or Tremors
Psych: Calm; No Agitated
Laboratory Results
-
02/13/25 11:50
Laboratory Results
Total Bilirubin Cancelled 02/13/25 11:50
AST Cancelled 02/13/25 11:50
ALT Cancelled 02/13/25 11:50
Alkaline Phosphatase Cancelled 02/13/25 11:50
Troponin I < 0.012 ng/ml 02/13/25 11:50
Impression/Plan
-
64 female presented with worsening leg edema and left heel wound
# Left heel ulcerated wound due to DM & PAD
Admit the patient to the hospital
Patient and family decided to come to the hospital due to worsening wound with foul-smelling.
Patient has very poor peripheral IV access. Unable to check BMP and blood culture. Stat consult to IR for central line placement. Patient is known to have similar issue in previous admissions.
Once we secure venous access. Will do blood cultures.
Empiric intravenous vancomycin and Zosyn
Tylenol for pain
Consult vascular surgery, she is known to the service and was supposed to get arteriogram.
Discussed with vascular surgery on-call, okay to continue the Plavix
# Acute on chronic heart failure with a preserved ejection fraction
Patient and family reported history of worsening leg edema. Per records, she had gained weight. She is on Lasix and Aldactone at home. Family reports compliance to medications.
Patient denies shortness of breath and chest pain at present time but report of exertional shortness of breath at home.
ECHO -11/2024-HFrEF with EF of 20 to 25%, global hypokinesis with septal akinesis, severe TR with PASP elevated to 63, moderate MR.
Daily weight check
trend BMP
Appreciate cards input
#Normocytic anemia-
Anemia of chronic disease
#Type 2 diabetes mellitus-
Continue with long-acting short acting insulin. Insulin sliding scale. Diabetic diet
#SLE-
Prior medications on admission, no prednisone, will try to verify
#Essential hypertension-
Continue with diuretic therapy if renal function stable. Continue with losartan
#Hyperlipidemia-
Continue statin.
# h/o V fib arrest
- cont amiodarone
#Peripheral neuropathy-
Continue gabapentin.
#History of GERD-
Continue famotidine.
#CAD with Recent CABG-
She denies chest pain.
- 08/2024
- cont Plavix.
#Anxiety/depression-
Continue citalopram 20 mg.
DVT prophylaxis-
Continue subcu hep
CODE STATUS-
Full code
Total time spent to see the patient, examine the patient, review data and lab result, discuss treatment plan with patient, family, ER doctor, ID, cardiology, vascular, nursing staff around 75 minutes
[2025-02-13] MEDS: ZOSYN 50 IV (14:16)
[2025-02-13] MEDS: LASIX 40 MG IV (14:16)
--- NOTE | 2025-02-13 14:21 | EDRN ---
Please note, blood cultures and lactic acid were ordered AFTER zosyn was ordered and administered.
--- NOTE | 2025-02-13 15:48 | PHANOTE ---
med rec note- patient has not return back from test and also waiting for son to come back to room, patient does not speak Maori,
[2025-02-13] MEDS: VANCOCIN 540 MG IV (16:01)
--- NOTE | 2025-02-13 16:14 | CON.ID ---
Consultation
-
Date/Time Consultation Requested: February 13, 2025 1530
Date/Time Consultation Performed: February 13, 2025 1620
Requesting Provider: Dr. Toscano in the [facility]
Performing Provider: Dr. Mary Tabor
Reason for Consultation: Left heel draining wound
Chief Complaint / Past History
Chief Complaint
Leg swelling and heel wound
History of Present Illness
History obtained from daughter at bedside and from patient. She is a 64-year-old female with diabetes mellitus, CAD status post CABG, ischemic cardiomyopathy, severe PAD previously not amenable to endovascular intervention who presented to the ER
today due to draining left heel wound. Patient was recently hospitalized from January 20 to January 25 due to acute CHF/volume overload. Patient with chronic left medial heel wound and right foot lateral wound. She follows with Vascular and was last seen
on February 06. Vascular plan for repeat angiogram prior to proceeding with Limflow procedure. She was scheduled for angiogram but postponed until February. In the meantime patient developed blister on her left heel. Blister opened malodor fluid. She
was therefore brought to the ER. No fevers or chills. Patient complains of pain over the left heel medial wound. No shortness of breath. No cough. No diarrhea.
Past History
Additional Past Medical History:
Diabetes mellitus
CAD status post CABG August 2024
Ischemic cardiomyopathy EF 20 to 25%
History of V fib arrest.
Hypertension
HLD
SLE on chronic prednisone and Plaquenil
History of C. difficile
PAD with left lower extremity small vessel occlusive disease not amenable to revascularization
Right third toe partial amputation due to osteomyelitis
Right great toe amputation
Right first metatarsal resection
Allergy History:
aspirin Allergy (Verified 02/08/25 13:56)
Anaphylaxis/rash
Medications Reviewed: Yes
Current Antibiotics:
Vancomycin
Zosyn
Social History
Tobacco: Former Smoker
Alcohol: None
Drug: None
Personal:
Living: With Family
Family History
Family History: Not Pertinent
Review of Systems
Review of Systems
General: Negative Fever, Chills or Change in Appetite
HEENT: Negative Sinus Problems or Headache
Cardiovascular: Negative Chest Pain or Dyspnea
Respiratory: Negative Dyspnea or Cough
Gasteroenterology: Negative Nausea, Vomiting or Diarrhea
Endocrine: Negative Weakness
All systems: All other systems were reviewed and were negative
Vital Signs
Temp Pulse Resp BP Pulse Ox
97.9 F 79 16 127/70 97
02/13/25 15:15 02/13/25 16:00 02/13/25 16:00 02/13/25 16:00 02/13/25 16:00
Physical Exam
Physical Exam
Constitutional: No Acute Distress and Comfortable
Eyes: No Conjunctival Hemorrhage and Sclera Anicteric
Cardiovascular: Regular Rate and S1/S2
Pulmonary: Clear
Gastrointestinal: Soft, Non Tender, Non Distended and Normal Bowel Sounds
Genito-Urinary: Negative CVA Tenderness
Extremities: Edema (1+ BLE)
Wound: Other (Right foot lateral small wound with dry eschar; Left heel medial wound dark violaceous discoloration, posterior heel with sloughing skin, ruptured blister)
Neurological: AO x 3
Lab / Diagnostic Study Results
02/13/25 11:50
Abs Immat Gran (auto) 0.0 10^3/uL (0-0.05) 02/13/25 11:50
Absolute Neuts (auto) 3.1 10^3/uL (1.4-6.5) 02/13/25 11:50
Absolute Lymphs (auto) 0.7 10^3/uL (1.2-3.4) L 02/13/25 11:50
Absolute Monos (auto) 0.4 10^3/uL (0.1-0.6) 02/13/25 11:50
Absolute Basos (auto) 0.0 10^3/uL (0-0.2) 02/13/25 11:50
Immature Gran % 0.5 % (0-0.5) 02/13/25 11:50
Neutrophils % 72.1 % (42.2-75.2) 02/13/25 11:50
Lymphocytes % 16.7 % (20.5-51.1) L 02/13/25 11:50
Monocytes % 8.8 % (1.7-9.3) 02/13/25 11:50
Eosinophils % 1.4 % (0-6) 02/13/25 11:50
Basophils % 0.5 % (0-2) 02/13/25 11:50
ESR 105 mm/hour (0-20) H 02/13/25 11:50
Ur Squamous Epith Cells 0-2 /LPF (Few) 02/13/25 12:23
Microbiology Results
Micro:
02/13/25 12:23 Urine Culture - Pending
Urine
Assessment / Plan
# Worsening/progression of non-healing left heel wound.
# Severe PAD
# DM
# CAD, ICM
- Vascular consult.
- Narrow Vanco/Zosyn to cefepime 1g IV q24.
#Conditions OPERATIONS SUPPORT REPRESENTATIVE
Diabetes mellitus
CAD status post CABG August 2024
Ischemic cardiomyopathy EF 20 to 25%
History of V fib arrest.
Hypertension
HLD
SLE on chronic prednisone and Plaquenil
History of C. difficile
PAD with left lower extremity small vessel occlusive disease not amenable to revascularization
Right third toe partial amputation due to osteomyelitis
Right great toe amputation
Right first metatarsal resection
[2025-02-13 16:35] LABS: C-Reactive Protein 13.70 mg/L (0.0-10.00)
[2025-02-13 16:42] LABS: ALT (SGPT) 18 U/L (0-35); AST (SGOT) 23 U/L (14-36); Albumin 3.5 g/dl (3.5-5.0); Alkaline Phosphatase 148 U/L (38-126); Blood Urea Nitrogen 30 mg/dl (7-17); Calcium 8.1 mg/dl (8.4-10.2); Carbon Dioxide 24 mmol/L (22-30); Chloride 112 mmol/L (98-107); Estimated Creatinine Clearance 45 ml/min; Glucose 119 mg/dl (70-99); Magnesium 2.3 mg/dl (1.6-2.3); Potassium 3.3 mmol/L (3.5-5.1); Sodium 144 mmol/L (135-145); Total Protein 7.3 g/dl (6.3-8.2); eGFR 50.55
--- NOTE | 2025-02-13 16:46 | CON.CAR ---
Addendum entered and electronically signed by Rajendra Mello DO 02/14/25 18:50:
I saw and examined the patient 02/13/2025 at 1700
The Veneer Sawyer's note was reviewed and I agree with the note.
Comment:
Plan:
Admitted with poorly healing left heel wound and evidence of volume overload with heart failure.
Her weight is up over 15 pounds from her previous discharge weight.
Continue IV diuresis. She was taking Lasix 80 mg p.o. twice daily prior to admission
Echo from November 2024 with known ischemic cardiomyopathy EF 20 to 25% no need to repeat currently.
Monitor I's and O's Daily weights and creatinine with diuresis.
Continue GDMT as blood pressure allow including losartan and Aldactone.
She remains on amiodarone for history of V-fib arrest post CABG
Continue Plavix given aspirin allergy with anaphylaxis.
Vascular to evaluate lower extremity
Original Note:
Consultation
Consultation Request
Date/Time Consultation Requested: 02/13/2025
Date/Time Consultation Performed: 02/13/2025
Requesting Provider: Dr. Pitts
Performing Provider: Dr. Mello
Reason for Consultation: Possible acute HF
Medical History
-
History of Present Illness:
Patient came to [facility] ER today with increased LE edema and left heel wound and is now admitted for foot wound and acute HF, cardiology has been consulted. Patient previously admitted to [facility] 08/20/2024 until 08/26/2024 with NSTEMI and MV CAD. Patient
with previous anaphylactic allergy to aspirin and there was an attempt at aspirin desensitization starting on the night of 08/21/2024 and patient had swollen eyes and hand tremors so desensitization therapy was stopped and the family was not
interested in another attempt. It then came to light that the patient's family member is a senior oral surgery technician at [employer] and the family requested transfer which was performed on 08/26/2024. As noted above patient had CABG and postop suffered VF
arrest. Post CABG cardiac cath showed patent grafts and patient ultimately had an Martini [employer] ICD placed. Patient also had C. difficile postop in the [facility] there were also right toe amputations that were performed all as part of her postop
course. Patient was just admitted to [facility] 01/20/2025 until 01/24/2025 with acute HFrEF and dysphagia, but GI workup was unrevealing in part because colonoscopy prep was inadequate. Left heel wound has been getting worse at home and patient is known
to the vascular surgery service, sounds like at some point she was supposed to get a peripheral angiogram that was delayed due to her last admission. Also, patient missed her cardiology visit on 02/07/2025 and called the next day to let us know that
she was gaining weight and at that time Dr. Estrada increased her Lasix to 80 mg BID, the patient denies any decrease in urine output and LE edema only worsened.
PMH:
Chronic HFrEF
ICM EF 20 to 25% by echo 12/19/2024
Severe TR with PAP 63 mmHg
Chronic dysphagia, chronic abdominal pain
CAD s/p CABG with VILLAFUERTE to LAD, saphenous vein to diagonal, saphenous vein to obtuse marginal at [facility] 08/26/24
Postop VF arrest
Patent VILLAFUERTE to LAD, patent SVG to diagonal, patent SVG to OM by postop cardiac cath
s/p Martini [employer] SC ICD at [facility] 08/2024
h/o C. difficile postop CABG at [facility]
Anaphylactic aspirin allergy with previous mild allergic reaction during attempted aspirin desensitization therapy at [facility] 08/24/24
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
DM 2
Diabetic neuropathy
Lupus
Hypertension
Dyslipidemia
Past Medical History
Past Medical History: Other (In HPI)
Past Surgical History: Cardiac (s/p CABG-08/26/2024, Martini [employer] Eric single-chamber ICD at [facility] 08/2024) and Other (PAD with partial amputations of the right 2nd and 3rd toes)
Social History
Tobacco: Non-Smoker
Alcohol: None
Personal:
Living: With Family
Family History
Family History: Reviewed & Not Pertinent
Allergies / Home Medications
Allergy/AdvReac Type Severity Reaction Status Date / Time
aspirin Allergy Anaphylaxis Verified 02/08/25 13:56
/rash
�Medication �Instructions �Recorded �Confirmed �Type
gabapentin 800 mg tablet 400 mg PO DAILYPRN PRN nerve pain 05/09/21 02/08/25 History
(Neurontin)
amiodarone 200 mg tablet 200 mg PO DAILY Arrhythmia 01/20/25 02/08/25 History
atorvastatin 40 mg tablet 40 mg PO DAILY High Cholesterol 01/20/25 02/08/25 History
citalopram 20 mg tablet 20 mg PO DAILY Mental 01/20/25 02/08/25 History
Health/Anxiety
clopidogrel 75 mg tablet 75 mg PO DAILY Blood Clot 01/20/25 02/08/25 History
Prevention/Tx
metoprolol succinate 25 mg 25 mg PO DAILY Heart 01/20/25 02/08/25 History
tablet,extended release 24 hr Disease/Condition
empagliflozin 10 mg tablet 10 mg PO DAILY Heart Failure #30 01/24/25 02/08/25 Rx
(Jardiance) tabs
spironolactone 25 mg tablet 25 mg PO DAILY #30 tabs 01/24/25 02/08/25 Rx
furosemide 40 mg tablet 80 mg PO BID AT 0800,1600 Heart 02/13/25 History
Failure
insulin aspart U-100 100 unit/mL 7 sliding scale dose SC AC 02/13/25 History
subcutaneous solution
insulin glargine 100 unit/mL 35 unit SC HS 02/13/25 History
subcutaneous solution (Lantus
U-100 Insulin)
losartan 25 mg tablet 25 mg PO DAILY 02/13/25 History
Review of Systems
-
History Source: Patient
All other systems: Negative unless noted
Physical Exam
Vital Signs
Temp Pulse Resp BP Pulse Ox
98.6 F 93 16 129/63 97
02/13/25 16:14 02/13/25 16:13 02/13/25 16:00 02/13/25 16:11 02/13/25 16:00
GEN: NAD
HEENT: EOMI
LUNGS: RA. No audible wheeze
CV: SR on tele
EXT: No edema B/L
NEURO: Gross non-focal
SKIN: No rash
Lab Results
02/13/25 11:50
02/13/25 16:11
Troponin I < 0.012 ng/ml 02/13/25 11:50
Yuu-I-Ylixoehcsxe Pept 15274 pg/ml 02/13/25 11:50
Impression / Plan
-
Primary care provider: Keli Gonzalez MD
Primary wheelchair rental clerk: Lna Estrada MD
Impression:
Admitted with LE edema and left heel wound 02/13/25
Recent admission for acute HF and dysphagia 01/20/2025 until 01/24/2025
Acute on chronic HFrEF
ICM EF 20 to 25% by echo 12/19/2024
Severe TR with PAP 63 mmHg
Chronic dysphagia, chronic abdominal pain
CAD s/p CABG with VILLAFUERTE to LAD, saphenous vein to diagonal, saphenous vein to obtuse marginal at [facility] 08/26/24
Postop VF arrest
Patent VILLAFUERTE to LAD, patent SVG to diagonal, patent SVG to OM by postop cardiac cath
s/p Martini [employer] SC ICD at [facility] 08/2024
h/o C. difficile postop CABG at [facility]
Anaphylactic aspirin allergy with previous mild allergic reaction during attempted aspirin desensitization therapy at [facility] 08/24/24
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
DM 2
Diabetic neuropathy
Lupus
Hypertension
Dyslipidemia
Echo 07/2024: tricuspid regurgitation increased from trace to severe and systolic pulmonary artery pressure previously was estimated at 25 to 30 mmHg and now is estimated at 63 mmHg.
Echo 12/09/24: finds severely reduced left ventricular systolic function with ejection fraction of 20-25%. Global hypokinesis with septal akinesis. Stage III diastolic dysfunction. Moderate mitral regurgitation, severe tricuspid regurgitation with
estimated pulmonary artery pressure of 63 mmHg.
Plan:
-Patient came to [facility] ER today with increased LE edema and left heel wound and is now admitted for foot wound and acute HF, cardiology has been consulted. Patient previously admitted to [facility] 08/20/2024 until 08/26/2024 with NSTEMI and MV CAD. Patient
with previous anaphylactic allergy to aspirin and there was an attempt at aspirin desensitization starting on the night of 08/21/2024 and patient had swollen eyes and hand tremors so desensitization therapy was stopped and the family was not
interested in another attempt. It then came to light that the patient's family member is a senior oral surgery technician at [employer] and the family requested transfer which was performed on 08/26/2024. As noted above patient had CABG and postop suffered VF
arrest. Post CABG cardiac cath showed patent grafts and patient ultimately had an Martini [employer] ICD placed. [facility] also [facility] toe amputations that were performed all as part of her postop
course. Patient was just admitted to [facility] 01/20/2025 until 01/24/2025 with acute HFrEF and dysphagia, but GI workup was unrevealing in part because colonoscopy prep was inadequate. Left heel wound has been getting worse at home and patient is known
to the vascular surgery service, sounds like at some point she was supposed to get a peripheral angiogram that was delayed due to her last admission. Also, patient missed her cardiology visit on 02/07/2025 and called the next day to let us know that
she was gaining weight and at that time Dr. Estrada increased her Lasix to 80 mg BID, the patient denies any decrease in urine output and LE edema only worsened.
-ECG reviewed by me is SR with cLSTEFANIE
-Talked with patient and her daughter in the room, patient denies missing any doses of her Lasix 80 mg PO BID and overall PO intake has been down so it is surprising that her weight is up to 158 lbs from recent HF discharge weight of 140 lbs.
-Patient reports increase in urine output following Lasix 40 mg IV x 1 in the ER. Patient now ordered Lasix 40 mg PO BID to start in a.m., but will hold that dose and assess for additional IV dosing in the a.m.
-Patient with ICM, EF 20 to 25% by echo 12/09/2024, no need to repeat echo
-Outpatient dose of Toprol-XL 25 mg daily has been continued
-Patient was started on valsartan 40 mg daily last admission, but her insurance changed this to losartan 25 mg daily which has been continued now.
-Patient was started on Jardiance [address] Estrada 10/2024, but this medication appears to have been stopped with her ongoing GI symptoms and is not currently ordered and she was not taking it prior to admission
-Outpatient dose of spironolactone 25 mg daily has been continued
-Outpatient dose of amiodarone 200 mg daily has been continued for her post CABG VF arrest. No known history of atrial arrhythmia and patient is not chronically on OAC
-Outpatient dose of Plavix 75 mg daily has been continued and this will presumably be long-term as patient cannot take aspirin due to history of anaphylactic allergy
-Cardiology follow-up arranged
-Patient had upper endoscopy 01/23/2025 and they did not find any obvious findings. Despite attempts at colonoscopy prep it was inadequate and colonoscopy was not attempted and she was recommended to follow-up as an outpatient.
-Patient was seen by vascular surgery on 02/06/2025 and plan was for LLE arteriogram with possible angioplasty/stent, but procedure was canceled for unclear reasons
[2025-02-13 17:15] LABS: Glucose - Point of Care 144 mg/dl (70-99)
--- NOTE | 2025-02-13 17:19 | PHA.VAN.IN ---
Assessment
- Assessment
Renal Function: Appears similar to baseline (01/21/25 BASELINE SCR: 1.0)
Concomitant Antimicrobials: ZOSYN
- Previous Dosing Experience
Previous Regimen: 750MG IV Q12H
Date of Regimen: 11/30/22
Provided Trough of: 12 PREDICTED +
Provided AUC of: 454 PREDICTED
Patient's SCR is: Elevated compared to previous dosing experience (11/29/22 SCR = 0.5)
Patient's weight is: Elevated compared to previous dosing experience (11/30/22 WT = 70.4 KG)
AUC Dosing Plan
- Dosing Variables
Dosing Weight (kg): 72
Dosing CrCl (ml/min): 45
Vd coefficient (L/kg): 0.7
- Empiric Dosing
Initial / Loading Dose: 2GM
Maintenance Regimen: 1GM IV Q24H
Estimated AUC (mcg*h/mL): 485
Estimated Peak (mcg*h/mL): 31.4
Estimated Trough (mcg/ml): 12
Estimated Half Life (H): 16.6
Pharmacokinetics Vancomycin I
- -
Patient Age: 64
Patient Sex: Female
Vancomycin Day #: 1
Indication: Skin And Soft Tissue ([L] HEEL WOUND)
Requesting Provider: ZIA
Height / Weight:
Height 5 ft 3 in
Actual Weight 72 kg
Pertinent Past Medical History: DM
- Vital Signs / Lab Results
Temp Pulse Resp BP Pulse Ox
98.5 F 86 20 139/67 97
02/13/25 16:45 02/13/25 16:45 02/13/25 16:45 02/13/25 16:45 02/13/25 16:45
Lab Results - Hematology
02/13/25
11:50
WBC 4.3 L
Lab Results - Chemistry
02/13/25 02/13/25
11:50 16:11
BUN Cancelled 30 H
Creatinine Cancelled 1.2 H
Estimated Creat Clear Cancelled 45
Albumin Cancelled 3.5
02/13/25
16:11
Lactic Acid 0.7
Lab Results - Urine
02/13/25
12:23
Urine Nitrite (Reflex) Negative
Leukocyte Esterase Rfl 2+ A
Urine WBC (Reflex) 0-2
Ur Squamous Epith Cells 0-2
Urine Bacteria (Reflex) Few A
[2025-02-13] MEDS: NOVOLOG FLEXPEN-MODERATE RESISTANCE SC (17:44)
[2025-02-13] MEDS: NOVOLOG FLEXPEN 7 UNITS SC (18:29)
[2025-02-13] MEDS: KCL 40 MEQ PO (18:29)
[2025-02-13] MEDS: HEPARIN 5000 UNITS SC (20:23)
[2025-02-13] MEDS: MAXIPIME 1000 MG IV (20:23)
[2025-02-13] MEDS: STERILE WATER FOR INJECTION 10 ML IV (20:23)
[2025-02-13] MEDS: NEURONTIN 400 MG PO (20:30)
[2025-02-13 21:35] LABS: Glucose - Point of Care 129 mg/dl (70-99)
[2025-02-13] MEDS: LANTUS 0.2 UNITS SC (21:51)
[2025-02-14] MEDS: STERILE WATER FOR INJECTION 10 ML IV ×4 (02:14→20:57)
[2025-02-14] MEDS: MAXIPIME 1000 MG IV ×4 (02:14→20:57)
[2025-02-14 03:12] VITALS: BP 121/60
[2025-02-14 04:09] LABS: Hematocrit 30.3 % (37.0-47.0); Hemoglobin 9.5 g/dL (12.0-16.0); Mean Corp Hgb Conc. 31.4 g/dL (33.0-37.0); Mean Corpuscular Volume 76.1 fL (81.0-99.0); Platelet Count 141 10^3/uL (130-400); Red Cell Dist. Width 17.8 % (11.5-14.5)
[2025-02-14 04:54] LABS: Blood Urea Nitrogen 27 mg/dl (7-17); Calcium 8.1 mg/dl (8.4-10.2); Carbon Dioxide 25 mmol/L (22-30); Chloride 112 mmol/L (98-107); Estimated Creatinine Clearance 49 ml/min; Glucose 107 mg/dl (70-99); Potassium 4.2 mmol/L (3.5-5.1); Sodium 145 mmol/L (135-145); eGFR 56.11
[2025-02-14 06:00] VITALS: BMI 27.0
[2025-02-14 07:50] VITALS: BP 115/63
[2025-02-14 07:50] LABS: Glucose - Point of Care 80 mg/dl (70-99)
[2025-02-14] MEDS: NOVOLOG FLEXPEN-MODERATE RESISTANCE SC ×3 (07:55→17:35)
[2025-02-14 08:21] LABS: Magnesium 2.2 mg/dl (1.6-2.3)
--- NOTE | 2025-02-14 08:46 | VNURNOTE ---
Chart reviewed. Patient is current with [facility]. Will continue to follow hospital course and DC plans.
[2025-02-14] MEDS: NOVOLOG FLEXPEN SC (08:50)
[2025-02-14] MEDS: COZAAR 25 MG PO (08:51)
[2025-02-14] MEDS: LIPITOR 40 MG PO (08:51)
[2025-02-14] MEDS: PLAVIX 75 MG PO (08:51)
[2025-02-14] MEDS: CELEXA 20 MG PO (08:52)
[2025-02-14] MEDS: PEPCID 20 MG PO (08:52)
[2025-02-14] MEDS: ALDACTONE 25 MG PO (08:52)
[2025-02-14] MEDS: TOPROL XL 25 MG PO (08:52)
[2025-02-14] MEDS: PACERONE 200 MG PO (08:53)
[2025-02-14] MEDS: HEPARIN 5000 UNITS SC ×2 (08:53→20:56)
--- NOTE | 2025-02-14 09:29 | W.PN.HOSP.TC ---
Today's Communication/Plan
-
ok to c/w Lasix
Assessment / Plan
Assessment / Plan
Physical Exam
General: No Apparent Distress and Comfortable
HEENT: Moist mucous membranes and Atraumatic
Respiratory: Rales (at bases ); No Wheezes
Cardiac: S1/S2 and Regular Rhythm
GI: Soft and Non Tender
Genito-urinary: No Cha
Musculoskeletal: No Clubbing, Edema, Left Lower Extremity and Edema, Right Lower Extremity
Skin: Other (left heel ulcer with foul smell )
Neuro: Alert, Oriented and Nonfocal/grossly intact; No Facial Droop or Tremors
Psych: Calm; No Agitated
64 female presented with worsening leg edema and left heel wound
# Left heel ulcerated wound due to DM & PAD
Patient and family decided to come to the hospital due to worsening wound with foul-smelling.
s/p IR for right central line placement.
f/w blood culture
Empiric intravenous vancomycin and Zosyn
Tylenol for pain
Consulted vascular surgery
Appreciate ID & Vascular surgery help
# Acute on chronic heart failure with a preserved ejection fraction
Patient feels better, no sob or chest pain. Per records, she had gained weight. She is on Lasix and Aldactone at home. Family reports compliance to medications.
Patient denies shortness of breath and chest pain at present time but report of exertional shortness of breath at home.
ECHO -11/2024-HFrEF with EF of 20 to 25%, global hypokinesis with septal akinesis, severe TR with PASP elevated to 63, moderate MR.
Daily weight check
trend BMP
Appreciate cards input
# ANTONIO, Creatinine is coming down
# Hypokalemia, replaced
#Normocytic anemia-
Anemia of chronic disease
#Type 2 diabetes mellitus-
Continue with long-acting short acting insulin. Insulin sliding scale. Diabetic diet
#SLE-
Prior medications on admission, no prednisone, will try to verify
#Essential hypertension-
Continue with diuretic therapy if renal function stable. Continue with losartan, Toprol.
#Hyperlipidemia-
Continue statin.
# h/o V fib arrest
- cont amiodarone
#Peripheral neuropathy-
Continue gabapentin.
#History of GERD-
Continue famotidine.
#CAD with Recent CABG-
She denies chest pain.
- 08/2024
- cont Plavix.
#Anxiety/depression-
Continue citalopram 20 mg.
DVT prophylaxis-
Continue subcu hep
CODE STATUS-
Full code
Total time spent to see the patient, examine the patient, review data and lab result, discuss treatment plan with patient, nursing staff around 55 minutes
Anticipated Discharge: > 48 hours
Subjective/Interval History
-
Date of Service: February 14, 2025
No chest pain
no sob
Objective Data
-
Labs:
Laboratory Results
02/14/25
03:52
WBC 3.9 L
Hgb 9.5 L
Hct 30.3 L
Plt Count 141
Sodium 145
Potassium 4.2 D
Chloride 112 H
Carbon Dioxide 25
BUN 27 H
Creatinine 1.1 H
Glucose 107 H
Calcium 8.1 L
Vital Signs:
Vital Signs
Temp Pulse Resp BP Pulse Ox
98.4 F 83 20 115/63 97
02/14/25 07:50 02/14/25 07:50 02/14/25 07:50 02/14/25 07:50 02/14/25 07:50
I&O
02/13/25 02/14/25 02/15/25
06:59 06:59 06:59
Intake Total 320 / 320
Output Total 400 / 400
Balance -80 / -80
--- NOTE | 2025-02-14 10:43 | WOUNDNOTE ---
LEFT POSTERIOR HEEL
--- NOTE | 2025-02-14 10:43 | WOUNDNOTE ---
LEFT MEDIAL HEEL
--- NOTE | 2025-02-14 10:44 | WOUNDNOTE ---
RIGHT LATERAL FOOT
--- NOTE | 2025-02-14 10:55 | WOUNDNOTE ---
[facility] RN note: Patient admitted with PAD, CHF and infected wound of L heel.
See H&P for complete history. Lives with family, speaks Macedonian.
PMH: PAD-saw Dr. Harris in past, DM, Lupus erythematous, HTN, infected R foot, follows podiatry, former smoker, R great toe amp, R 2nd toe ulcer. R partial 3rd toe amp 12/03/[address] Palafox, Ulcers of L heel and R foot.
Wound Location and type/assessment: Patient known to service, last seen 01/23/25 for PAD/DM/pressure related wounds. Dry scab on R lateral foot unchanged, has new unstageable PI/PAD/DM on R heel. L medial heel with same dry savage eschar, unstageable
PI, boggy surrounding, no drainage. L posterior heel with unstageable PI/PAD/DM, foul odor, painful and moderate purulent drainage. Vascular consult pending. I&D on consult, reviewed note, confirmed with Dr. Tabor to obtain wound culture today.
Sacrum is intact, mild MASD on gluteal cleft. Buttocks with small stage 3 PI's R>L. Patient turned self to sides and able to lift own legs. at bedside to translate.
Appetite: poor reports . Encouraged protein in diet.
Pressure redistribution devices in place: Versacare air, air cushion when sitting. offloading heel boots when in bed, called [facility] for TruVue lite fiber filled boots, nurse [place] aware and will apply. Pressure ulcer prevention measures reviewed with
, states he understands. Asked nurse to keep patient on air mattress.
Plan: Dressings changed. Will order Dakin[employer] for cleaning/soaks due to odor. ABD and spandage placed on, vascular to see later today. Further orders per vascular for L heel. Wound culture done and nurse to send to lab. Discussed plan of wound care
and offloading with RN, will update care plan and follow as needed.
Recommend patient follow up with her director of planning or Vascular.
--- NOTE | 2025-02-14 11:12 | CON.VAS ---
Consultation
Consultation Request
Date/Time Consultation Performed: 02/14/25 11:30
Performing Provider: Semaj
Reason for Consultation: Nonhealing left lower extremity wound
Medical History
-
Chief Complaint: Malodorous chronic wound left foot
History of Present Illness:
64-year-old female with past medical history significant for diabetes, hypertension, lupus, small vessel PAD, asthma, varicose veins, PVD, osteoporosis, CABG and hypothyroid. Vascular surgical history noted below. Patient admitted through the
emergency room yesterday for worsening wound, shortness of breath, edema. Patient was seen in our office just over a week ago with Dr. Harris. Plan was for outpatient bilateral lower extremity arteriogram in mid February.
When comparing wound care pictures from our office to the hospital wound care pictures yesterday the wound does look significantly worse. Patient's family at bedside was concerned with odor. I discussed with them moving of her arteriogram to this
hospital stay to which they agreed. Patient and family has had extensive discussions with Dr. Harris in office about checking for a treatable stenosis before proceeding with a Limflow procedure. Patient has known obliterative small vessel disease.
Vascular consult for nonhealing foot wound.
Vascular surgery history:�����
07/16/21- Aortogram and pelvic angiogram, RLE arteriogram- PAD, R foot osteo/wound
04/30/22- Aortogram, pelvic angiogram, LLE arteriogram- PAD, osteo L third toe.History of right first toe amputation, and right third toe distal phalynx amputation.
Past Medical History
Past Medical History: Other (Diabetes, hypertension, lupus, small vessel PAD, asthma, varicose veins, PVD, osteoporosis, hypothyroid)
Past Surgical History: Cardiac (CABG) and Other (toe amputations)
Social History
Alcohol: None
Personal:
Living: With Family
Employment: Not Employed
Family History
Family History: Reviewed & Not Pertinent
Allergies / Home Medications
Allergy/AdvReac Type Severity Reaction Status Date / Time
aspirin Allergy Anaphylaxis Verified 02/08/25 13:56
/rash
�Medication �Instructions �Recorded �Confirmed �Type
gabapentin 800 mg tablet 400 mg PO DAILYPRN PRN nerve pain 05/09/21 02/08/25 History
(Neurontin)
amiodarone 200 mg tablet 200 mg PO DAILY Arrhythmia 01/20/25 02/08/25 History
atorvastatin 40 mg tablet 40 mg PO DAILY High Cholesterol 01/20/25 02/08/25 History
citalopram 20 mg tablet 20 mg PO DAILY Mental 01/20/25 02/08/25 History
Health/Anxiety
clopidogrel 75 mg tablet 75 mg PO DAILY Blood Clot 01/20/25 02/08/25 History
Prevention/Tx
metoprolol succinate 25 mg 25 mg PO DAILY Heart 01/20/25 02/08/25 History
tablet,extended release 24 hr Disease/Condition
empagliflozin 10 mg tablet 10 mg PO DAILY Heart Failure #30 01/24/25 02/08/25 Rx
(Jardiance) tabs
spironolactone 25 mg tablet 25 mg PO DAILY #30 tabs 01/24/25 02/08/25 Rx
furosemide 40 mg tablet 80 mg PO BID AT 0800,1600 Heart 02/13/25 History
Failure
insulin aspart U-100 100 unit/mL 7 sliding scale dose SC AC 02/13/25 History
subcutaneous solution
insulin glargine 100 unit/mL 35 unit SC HS 02/13/25 History
subcutaneous solution (Lantus
U-100 Insulin)
losartan 25 mg tablet 25 mg PO DAILY 02/13/25 History
Review of Systems
-
History Source: Family
All other systems: Negative unless noted
Constitutional: Reports No Symptoms
EENT: Reports No Symptoms
Respiratory: Reports No Symptoms
Cardiac: Reports No Symptoms
Vascular: Denies Leg Pain / Claudication
Abdomen/GI: Reports No Symptoms
: Reports No Symptoms
Musculoskeletal: Reports Edema
Skin: Reports Other (Nonhealing foot wound)
Neurological: Reports No Symptoms
Physical Exam
Vital Signs
Temp Pulse Resp BP Pulse Ox
98.4 F 83 20 115/63 97
02/14/25 07:50 02/14/25 07:50 02/14/25 07:50 02/14/25 07:50 02/14/25 07:50
Lab Results
02/14/25 03:52
02/14/25 03:52
Troponin I < 0.012 ng/ml 02/13/25 11:50
Pyn-B-Sqabboczmyv Pept 34050 pg/ml 02/13/25 11:50
Physical Exam
General: No Apparent Distress
HEENT: Normocephalic and Atraumatic
Respiratory: Non Labored Respirations
Cardiac: Negative JVD
GI: Soft and Non Tender
Musculoskeletal: No Clubbing, No Cyanosis and Edema
Skin: Warm and Other (See wound care images, I may have palpated a faint AT pulse but unsure)
Neuro: Awake and Alert
Psych: Calm
Pulses: Bilateral Dorsalis Pedis: Doppler (Nonpalpable) and Bilateral Posterior Tibial: Doppler (Nonpalpable)
Assessment / Plan
-
64-year-old female here with nonhealing left foot wound
Plan:
I will add patient to OR schedule Wednesday for bilateral lower extremity arteriogram, possible HEAD OF MOBILE/stent
N.p.o. after midnight for Wednesday
Continue local wound care
Data Reviewed
-
Labs: Labs Reviewed by me
[2025-02-14 11:26] VITALS: BP 109/64
[2025-02-14 11:34] VITALS: BMI 27.0
--- NOTE | 2025-02-14 11:58 | CM ---
manager dental reviewed patient's chart and met with patient and spouse at bedside, patient lives with spouse in a 1 story home with 4 steps to enter, patient is independent with adl's and uses a cane or walker with ambulation, patient is current with
[facility] and plan is to home with [facility].
PCP: Dr Keli Mcginnis
Pharmacy: [facility]
Plan; Home with spouse and [facility].
[2025-02-14 12:01] LABS: Glucose - Point of Care 139 mg/dl (70-99)
[2025-02-14] MEDS: NOVOLOG FLEXPEN 7 UNITS SC ×2 (13:15→17:51)
--- NOTE | 2025-02-14 14:46 | W.PN.CARDCBS ---
Addendum entered and electronically signed by Rajendra Mello DO 02/14/25 18:43:
I saw and examined the patient.
The [employer]'s note was reviewed and I agree with the note.
Comment:
Plan:
Weight coming down with Lasix. Would continue IV Lasix, 80 mg IV twice daily. The patient was taking 80 mg p.o. twice daily prior to admission.
Recent echo with EF 20 to 25% November 2024, known ischemic cardiomyopathy, no need to repeat currently.
Monitor I's and O's Daily weights and creatinine
Continue GDMT including losartan, Aldactone
Continue with Amiodarone 200 mg daily for hx post CABG VF arrest.
Cont Plavix, pt with hx ASA allergy with anaphylaxis.
Vascular to eval LE nonhealing wound
Abx as per ID
Cont supportive care
Original Note:
Today's Communication / Plan
-
Increase Lasix to 80 mg IV BID
Impression / Plan
-
Primary care provider: Keli Gonzalez MD
Primary fur blower: Lan Estrada MD
Impression:
Admitted with LE edema and left heel wound 02/13/25
Recent admission for acute HF and dysphagia 01/20/2025 until 01/24/2025
Acute on chronic HFrEF
ICM EF 20 to 25% by echo 12/19/2024
Severe TR with PAP 63 mmHg
Chronic dysphagia, chronic abdominal pain
CAD s/p CABG with VILLAFUERTE to LAD, saphenous vein to diagonal, saphenous vein to obtuse marginal at [place] 08/26/24
Postop VF arrest
Patent VILLAFUERTE to LAD, patent SVG to diagonal, patent SVG to OM by postop cardiac cath
s/p Martini [employer] Eric SC ICD at [place] 08/2024
h/o C. difficile postop CABG at [place]
Anaphylactic aspirin allergy with previous mild allergic reaction during attempted aspirin desensitization therapy at [facility] 08/24/24
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
DM 2
Diabetic neuropathy
Lupus
Hypertension
Dyslipidemia
Echo 07/2024: tricuspid regurgitation increased from trace to severe and systolic pulmonary artery pressure previously was estimated at 25 to 30 mmHg and now is estimated at 63 mmHg.
Echo 12/09/24: finds severely reduced left ventricular systolic function with ejection fraction of 20-25%. Global hypokinesis with septal akinesis. Stage III diastolic dysfunction. Moderate mitral regurgitation, severe tricuspid regurgitation with
estimated pulmonary artery pressure of 63 mmHg.
Plan:
-Weight is down to 152 lbs on 02/14/2025. Recent HF discharge weight was 140 lbs on 01/24/2025.
-Patient was given Lasix 40 mg IV x 1 in the ER on 02/14/2025 and was then ordered Lasix 40 mg PO BID to start in a.m., but dose changed to Lasix 80 mg IV BID by me on 02/14/2025. Patient was taking Lasix 80 mg PO BID prior to admission
-Patient with ICM, EF 20 to 25% by echo 12/09/2024, no need to repeat echo
-Labs reviewed by me 02/14/2025 and Cre improved to 1.1 with initial attempts of diuresis
-Outpatient dose of Toprol-XL 25 mg daily has been continued
-Patient was started on valsartan 40 mg daily last admission, but her insurance changed this to losartan 25 mg daily which has been continued now.
-Patient was started on Jardiance [address] Estrada 10/2024, but this medication appears to have been stopped with her ongoing GI symptoms and is not currently ordered and she was not taking it prior to admission
-Outpatient dose of spironolactone 25 mg daily has been continued
-Outpatient dose of amiodarone 200 mg daily has been continued for her post CABG VF arrest. No known history of atrial arrhythmia and patient is not chronically on OAC
-Outpatient dose of Plavix 75 mg daily has been continued and this will presumably be long-term as patient cannot take aspirin due to history of anaphylactic allergy
-Cardiology follow-up arranged
-Patient had upper endoscopy 01/23/2025 and they did not find any obvious findings. Despite attempts at colonoscopy prep it was inadequate and colonoscopy was not attempted and she was recommended to follow-up as an outpatient.
-Patient was seen by vascular surgery on 02/06/2025 and plan was for LLE arteriogram with possible angioplasty/stent, but procedure was canceled for unclear reasons. ID note reviewed by me and they have started patient on cefepime. Inpatient
vascular surgery consult planned
HPI: Patient came to [facility] ER today with increased LE edema and left heel wound and is now admitted for foot wound and acute HF, cardiology has been consulted. Patient previously admitted to [facility] 08/20/2024 until 08/26/2024 with NSTEMI and MV CAD.
Patient with previous anaphylactic allergy to aspirin and there was an attempt at aspirin desensitization starting on the night of 08/21/2024 and patient had swollen eyes and hand tremors so desensitization therapy was stopped and the family was not
interested in another attempt. It then came to light that the patient's family member is a senior satellite tv technician at [facility] and the family requested transfer which was performed on 08/26/2024. As noted above patient had CABG and postop suffered VF
arrest. Post CABG cardiac cath showed patent grafts and patient ultimately had an Martini Saint Eric ICD placed. [facility] were also right toe amputations that were performed all as part of her postop
course. Patient was just admitted to [facility] 01/20/2025 until 01/24/2025 with acute HFrEF and dysphagia, but GI workup was unrevealing in part because colonoscopy prep was inadequate. Left heel wound has been getting worse at home and patient is known
to the vascular surgery service, sounds like at some point she was supposed to get a peripheral angiogram that was delayed due to her last admission. Also, patient missed her cardiology visit on 02/07/2025 and called the next day to let us know that
she was gaining weight and at that time Dr. Estrada increased her Lasix to 80 mg BID, the patient denies any decrease in urine output and LE edema only worsened.
Progress Note - Train Braker
Subjective
Date of Service: February 14, 2025
Increased urine output
Objective
Labs:
02/14/25 03:52
02/14/25 03:52
Labs
Hgb 9.5 g/dL (12.0-16.0) L 02/14/25 03:52
Hct 30.3 % (37.0-47.0) L 02/14/25 03:52
Plt Count 141 10^3/uL (130-400) 02/14/25 03:52
Sodium 145 mmol/L (135-145) 02/14/25 03:52
Potassium 4.2 mmol/L (3.5-5.1) D 02/14/25 03:52
BUN 27 mg/dl (7-17) H 02/14/25 03:52
Creatinine 1.1 mg/dL (0.6-1.0) H 02/14/25 03:52
Glucose 107 mg/dl (70-99) H 02/14/25 03:52
Troponins
02/13/25
11:50
Troponin I < 0.012
Vital Signs and I&O:
Vital Signs
Temp Pulse Resp BP Pulse Ox
98.4 F 78 18 109/64 93
02/14/25 11:26 02/14/25 11:26 02/14/25 11:26 02/14/25 11:26 02/14/25 11:26
Vital Signs
Temp Pulse Resp BP Pulse Ox
98.4 F 78 18 109/64 93
02/14/25 11:26 02/14/25 11:26 02/14/25 11:26 02/14/25 11:26 02/14/25 11:26
Intake & Output
02/12/25 02/13/25 02/14/25 02/15/25
06:59 06:59 06:59 06:59
Intake Total 320 / 320
Output Total 400 / 400
Balance -80 / -80
Physical Exam
Physical Exam
GEN: NAD
HEENT: EOMI
LUNGS: RA. No audible wheeze
CV: SR on tele
[2025-02-14] MEDS: LASIX 80 MG IV (15:09)
[2025-02-14 16:00] VITALS: BP 103/63
[2025-02-14 17:25] LABS: Glucose - Point of Care 128 mg/dl (70-99)
--- NOTE | 2025-02-14 17:59 | W.PN.ID1 ---
Date of Service
Date of Service: February 14, 2025
Today's Communication
Continue cefepime.
Assessment / Plan
# Worsening/progression of non-healing left heel wound.
# Severe PAD
# DM
# CAD, ICM
- Vascular following. For angiogram following.
- Continue cefepime 1g IV q24. Of note, abx likely ineffective due to severe PAD.
- Appreciate mesmerist.
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
Diabetes mellitus
CAD status post CABG August 2024
Ischemic cardiomyopathy EF 20 to 25%
History of V fib arrest.
Hypertension
HLD
SLE on chronic prednisone and Plaquenil
History of C. difficile
PAD with left lower extremity small vessel occlusive disease not amenable to revascularization
Right third toe partial amputation due to osteomyelitis
Right great toe amputation
Right first metatarsal resection
Chief Complaint
-: Other (Wound infection)
Vital Signs / Physical Exam
Vital Signs
Vital Signs
Temp Pulse Resp BP Pulse Ox
98.4 F 73 18 103/63 93
02/14/25 11:26 02/14/25 16:00 02/14/25 16:00 02/14/25 16:00 02/14/25 11:26
Physical Exam
Constitutional: No Acute Distress and Comfortable
Pulmonary: Clear
Gastrointestinal: Soft, Non Tender, Non Distended and Normal Bowel Sounds
Wound: Other (Left heel medial wound dark in color, large ruptured blister over posterior heel)
Objective Data
Lab Data
Lab Results
02/14/25 03:52
02/14/25 03:52
ESR 105 mm/hour (0-20) H 02/13/25 11:50
Estimated Creat Clear 49 ml/min 02/14/25 03:52
Lactic Acid Cancelled 02/13/25 18:15
Total Bilirubin 0.9 mg/dl (0.2-1.3) 02/13/25 16:11
AST 23 U/L (14-36) 02/13/25 16:11
ALT 18 U/L (0-35) 02/13/25 16:11
Alkaline Phosphatase 148 U/L (38-126) H 02/13/25 16:11
C-Reactive Protein 13.70 mg/L (0.0-10.00) H 02/13/25 16:11
Most recent labs reviewed.
Micro Results:
02/13/25 16:11 Blood Culture - Preliminary
Blood/Venous No Growth in 24 hours- Final report to follow
02/14/25 10:43 Wound Culture - Pending
Heel - Left Gram Stain - Preliminary
02/13/25 12:23 Urine Culture - Final
Urine
--- NOTE | 2025-02-14 18:28 | PTCARENOTE ---
Patient received from room 437-1 awake, oriented x3. Primary language is Grenadian, speaks little Dominican but able to understand and make her needs known. Pt with poor appetite, needs encouragement to eat. Denies any pain at present. In bed at
present , fiber filled boots intact , call dobson in reach.
[2025-02-14 19:20] VITALS: BP 107/61
[2025-02-14] MEDS: BENADRYL 6.25 MG IV (21:34)
[2025-02-14 21:36] LABS: Glucose - Point of Care 79 mg/dl (70-99)
[2025-02-14] MEDS: LANTUS SC (21:37)
[2025-02-14 23:51] VITALS: BP 105/53
[2025-02-15] MEDS: STERILE WATER FOR INJECTION 10 ML IV ×3 (02:21→15:35)
[2025-02-15] MEDS: MAXIPIME 1000 MG IV ×3 (02:21→15:34)
[2025-02-15 02:30] LABS: Glucose - Point of Care 76 mg/dl (70-99)
[2025-02-15 03:12] VITALS: BP 124/68
[2025-02-15 06:00] VITALS: BMI 26.7
--- NOTE | 2025-02-15 06:12 | PTCARENOTE ---
Pt was c/o nausea w/o vomiting. Benadryl given as ordered by Raul Hampton NP. BS was 79. Encouraged pt to drink the orange juice she requested and lantus held. Pt only sipped on the juice. Pt rechecked @ approximately 0230hrs and was 76. Pt given
orange juice and this time pt drank it. Pt still c/o nausea. No s/s of distress assessed. Will continue to monitor.
[2025-02-15 07:08] VITALS: BP 102/68
[2025-02-15 07:49] LABS: Glucose - Point of Care 82 mg/dl (70-99)
[2025-02-15] MEDS: NOVOLOG FLEXPEN-MODERATE RESISTANCE SC ×3 (09:00→17:22)
[2025-02-15] MEDS: PEPCID PO ×2 (09:04→10:00)
[2025-02-15] MEDS: PLAVIX PO ×2 (09:04→10:00)
[2025-02-15] MEDS: LIPITOR PO ×2 (09:05→10:00)
[2025-02-15] MEDS: ALDACTONE PO (09:05)
[2025-02-15] MEDS: CELEXA PO ×2 (09:05→10:00)
[2025-02-15] MEDS: COZAAR PO (09:06)
[2025-02-15] MEDS: ZOFRAN 4 MG IV ×3 (09:07→23:42)
[2025-02-15] MEDS: TOPROL XL PO ×2 (09:07→10:00)
[2025-02-15] MEDS: HEPARIN 5000 UNITS SC ×2 (09:07→20:08)
[2025-02-15] MEDS: PACERONE PO ×2 (09:08→10:00)
[2025-02-15] MEDS: DAKIN'S SOLUTION 0.125% 1/4 STRENGTH 473 ML TOPICAL (09:08)
[2025-02-15] MEDS: NOVOLOG FLEXPEN SC ×2 (10:00→12:17)
--- NOTE | 2025-02-15 10:50 | W.PN.HOSP.TC ---
Addendum entered and electronically signed by Maegan Pitts MD 02/15/25 16:27:
Addendum
pt continues to have nausea, did not eat whole day, low blood glucose
She reports ( Im just not hungry and medications are making me sick). IR doctor: Replaced cefepime with Unasyn due to nausea.
will hold Lantus, pre-meal insulin
c/w PRN Zofran
Give mild IVF
will check troponin because she is diabetic and can have a typical angina/ cardiac issue although she denies chest pain
Will follow
Original Note:
Today's Communication/Plan
-
Nausea/ vomiting
To give Zofran
Hold Oral pills
IV PPI
Pre-op evalaution by cardiology
Assessment / Plan
Assessment / Plan
Physical Exam
General: No Apparent Distress and Comfortable
HEENT: Moist mucous membranes and Atraumatic
Respiratory: Rales (at bases ); No Wheezes
Cardiac: S1/S2 and Regular Rhythm
GI: Soft and Non Tender
Genito-urinary: No Cha
Musculoskeletal: No Clubbing, Edema, Left Lower Extremity and Edema, Right Lower Extremity
Skin: Other (left heel ulcer with foul smell )
Neuro: Alert, Oriented and Nonfocal/grossly intact; No Facial Droop or Tremors
Psych: Calm; No Agitated
64 female presented with worsening leg edema and left heel wound
# Nausea
Possible medication induced
Hold oral meds
Given Zofran
IV PPI
EGD 01/23/25 showed focal gastritis
# Left heel ulcerated wound due to DM & PAD
Patient and family decided to come to the hospital due to worsening wound with foul-smelling.
s/p IR for right central line placement.
Negative blood culture
Empiric intravenous vancomycin and Zosyn, now on Cefepime
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
Tylenol for pain
Consulted vascular surgery
Appreciate ID & Vascular surgery help
# Acute on chronic heart failure with a preserved ejection fraction
Patient feels better, no sob or chest pain but has nausea. Per records, she had gained weight. She is on Lasix and Aldactone at home. Family reports compliance to medications.
Patient denies shortness of breath and chest pain at present time but report of exertional shortness of breath at home.
ECHO -11/2024-HFrEF with EF of 20 to 25%, global hypokinesis with septal akinesis, severe TR with PASP elevated to 63, moderate MR.
Daily weight check
trend BMP
Appreciate cards input
# ANTONIO, Creatinine is coming down
# Hypokalemia, replaced
#Normocytic anemia-
Anemia of chronic disease
#Type 2 diabetes mellitus-
Continue with long-acting short acting insulin. Insulin sliding scale. Diabetic diet
#SLE-
Prior medications on admission, no prednisone, will try to verify
#Essential hypertension-
Continue with diuretic therapy if renal function stable. Continue with losartan, Toprol.
#Hyperlipidemia-
Continue statin.
# h/o V fib arrest
- cont amiodarone
#Peripheral neuropathy-
Continue gabapentin.
#History of GERD-
Continue famotidine.
#CAD with Recent CABG-
She denies chest pain.
- 08/2024
- cont Plavix.
#Anxiety/depression-
Continue citalopram 20 mg.
DVT prophylaxis-
Continue subcu hep
CODE STATUS-
Full code
Total time spent to see the patient, examine the patient, review data and lab result, discuss treatment plan with patient, nursing staff around 55 minutes
Anticipated Discharge: > 48 hours
Subjective/Interval History
-
Date of Service: February 15, 2025
Objective Data
-
Vital Signs:
Vital Signs
Temp Pulse Resp BP Pulse Ox
97.5 F 68 18 102/68 95
02/15/25 07:08 02/15/25 07:08 02/15/25 07:08 02/15/25 07:08 02/15/25 07:08
I&O
02/14/25 02/15/25 02/16/25
06:59 06:59 06:59
Intake Total 320 / 320 1440 / 1440
Output Total 400 / 400 200 / 200
Balance -80 / -80 1240 / 1240
[2025-02-15 11:32] VITALS: BP 113/55
[2025-02-15 12:05] LABS: Glucose - Point of Care 71 mg/dl (70-99)
[2025-02-15] MEDS: PROTONIX IV 40 MG IV (12:50)
[2025-02-15] MEDS: NSS (PRESERVATIVE FREE) 10 ML IV (12:50)
--- NOTE | 2025-02-15 13:03 | PN.CDI ---
Addendum entered and electronically signed by Maegan Pitts MD 02/15/25 13:22:
Addendum
Mild MASD on gluteal cleft. Buttocks with small stage 3 pressure injury/ulcer, PI's R>L...
Original Note:
CDI
- -
CDI:
Physician Documentation Request
Admit Date: 02/13/25 14:41
Dear Doctor Gisselle,
Please review the following and provide your response in the progress notes.
Clinical Indicators:
Pt admitted with Left heel ulcerated wound due to DM & PAD
Documented per [facility] note 02/14,' Sacrum is intact, mild MASD on gluteal cleft. Buttocks with small stage 3 PI's R>L....dressings changed..'
Physician documentation of the type and location of wounds is required for compliant documentation. Based on the above clinical findings and your assessment, please provide the following in your progress note:
1. Location of the ulcer/wound, including laterality.
2. Type (etiology) of ulcer/wound:
- Pressure (decubitus) ulcer
- Non-pressure ulcer
- Other ( please specify)
Use of terms such as suspected, likely, concern for, or probable (associated with a specific diagnosis that is being evaluated, monitored, or treated as if it exists) are acceptable and can be coded in the inpatient setting, when documented at the
time of discharge.
Thank you,
Tia Hung RN
CDI Specialist
[place] [facility]
Please use your independent medical judgment in providing your response.
*Source: National Pressure Ulcer Advisory Panel (NPUAP)
[2025-02-15 13:12] LABS: Blood Urea Nitrogen 27 mg/dl (7-17); Calcium 8.4 mg/dl (8.4-10.2); Carbon Dioxide 23 mmol/L (22-30); Chloride 111 mmol/L (98-107); Estimated Creatinine Clearance 53 ml/min; Glucose 71 mg/dl (70-99); Potassium 4.4 mmol/L (3.5-5.1); Sodium 141 mmol/L (135-145); eGFR > 60.00
--- NOTE | 2025-02-15 13:15 | PN.CDI ---
Addendum entered and electronically signed by Maegan Pitts MD 02/15/25 14:07:
Immunocompromised
Original Note:
CDI
- -
CDI:
Physician Documentation Request
Admit Date: 02/13/25 14:41
Dear Doctor Gisselle ,
Please review the following and provide your response in the progress notes.
Clinical Indicators:
Pt admitted with Left heel ulcerated wound due to DM & PAD
Documented per ID note 02/14,' SLE on chronic prednisone and Plaquenil..'
02/13/25 02/14/25
11:50 03:52
WBC 4.3 L 3.9 L
Please provide a diagnosis for the pts immune status:
Immunocompromised
Normal Immunity
Other ( please specify)
Use of terms such as suspected, likely, concern for, or probable (associated with a specific diagnosis that is being evaluated, monitored, or treated as if it exists) are acceptable and can be coded in the inpatient setting, when documented at the
time of discharge.
Thank you,
Tia Hung RN
CDI Specialist
[place] [facility]
Please use your independent medical judgment in providing your response.
--- NOTE | 2025-02-15 13:43 | W.PN.CARDCBS ---
Addendum entered and electronically signed by Ilir Metzger MD 02/15/25 16:43:
patient seen and examined
agree with ALO Myers's notes and assessment
agree with ALO Myers's plan
exam:
heent ncat
jvp 6
cor regular
lungs diminished but clear
depressed affect
peripheral findings/exam noted
Primary care provider: Keli Gonzalez MD
Primary indirect fire infantryman: Lan Estrada MD
Impression:
Admitted with LE edema and left heel wound 02/13/25
Recent admission for acute HF and dysphagia 01/20/2025 until 01/24/2025
Acute on chronic HFrEF
ICM EF 20 to 25% by echo 12/19/2024
Severe TR with PAP 63 mmHg
Chronic dysphagia, chronic abdominal pain
CAD s/p CABG with VILLAFUERTE to LAD, saphenous vein to diagonal, saphenous vein to obtuse marginal at [facility] 08/26/24
Postop VF arrest
Patent VILLAFUERTE to LAD, patent SVG to diagonal, patent SVG to OM by postop cardiac caths/p Martini [employer] Eric SC ICD at [facility] 08/2024
h/o C. difficile postop CABG at [facility]
Anaphylactic aspirin allergy with previous mild allergic reaction during attempted aspirin desensitization therapy at [facility] 08/24/24
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
DM 2
Diabetic neuropathy
Lupus
Hypertension
Dyslipidemia
Echo 07/2024: tricuspid regurgitation increased from trace to severe and systolic pulmonary artery pressure previously was estimated at 25 to 30 mmHg and now is estimated at 63 mmHg.
Echo 12/09/24: finds severely reduced left ventricular systolic function with ejection fraction of 20-25%. Global hypokinesis with septal akinesis. Stage III diastolic dysfunction. Moderate mitral regurgitation, severe tricuspid regurgitation with
estimated pulmonary artery pressure of 63 mmHg.
Plan:
-Weight is down to 150 lbs on 02/15/2025. Recent HF discharge weight was 140 lbs on 01/24/2025.
-Continue Lasix 80 mg IV BID. Patient was taking Lasix 80 mg PO BID prior to admission
-Patient with ICM, EF 20 to 25% by echo 12/09/2024, no need to repeat echo
-Labs reviewed by me 02/15/2025 and Cre improved to 1.0 with diuresis
-Outpatient dose of Toprol-XL 25 mg daily has been continued
-Outpatient dose of losartan 25 mg daily was continued initially, but now on hold for planned peripheral arteriogram
-Patient was started on Jardiance [address] Estrada 10/2024, but this medication appears to have been stopped with her ongoing GI symptoms and is not currently ordered and she was not taking it prior to admission
-Outpatient dose of spironolactone 25 mg daily was continued initially, but now on hold for planned peripheral arteriogram
-Outpatient dose of amiodarone 200 mg daily has been continued for her post CABG VF arrest. No known history of atrial arrhythmia and patient is not chronically on OAC
-Outpatient dose of Plavix 75 mg daily has been continued and this will presumably be long-term as patient cannot take aspirin due to history of anaphylactic allergy
-Patient continues with GI symptoms and had upper endoscopy 01/23/2025, but they did not find any obvious findings. Despite attempts at colonoscopy prep it was inadequate and colonoscopy was not attempted and she was recommended to follow-up as an
outpatient.
-Patient is optimized from a cardiac standpoint to proceed with planned vascular surgery procedure. Recommend telemetry monitoring perioperatively and avoid excessive IVF's. We will follow along
Original Note:
Today's Communication / Plan
-
Patient is optimized from a cardiac standpoint to proceed with planned vascular surgery procedure. Recommend telemetry monitoring perioperatively and avoid excessive IVF's. We will follow along
Impression / Plan
-
Primary care provider: Keli Gonzalez MD
Primary indirect fire infantryman: Lan Estrada MD
Impression:
Admitted with LE edema and left heel wound 02/13/25
Recent admission for acute HF and dysphagia 01/20/2025 until 01/24/2025
Acute on chronic HFrEF
ICM EF 20 to 25% by echo 12/19/2024
Severe TR with PAP 63 mmHg
Chronic dysphagia, chronic abdominal pain
CAD s/p CABG with VILLAFUERTE to LAD, saphenous vein to diagonal, saphenous vein to obtuse marginal at [facility] 08/26/24
Postop VF arrest
Patent VILLAFUERTE to LAD, patent SVG to diagonal, patent SVG to OM by postop cardiac cath
s/p Martini [employer] Eric SC ICD at [facility] 08/2024
h/o C. difficile postop CABG at [facility]
Anaphylactic aspirin allergy with previous mild allergic reaction during attempted aspirin desensitization therapy at [facility] 08/24/24
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
DM 2
Diabetic neuropathy
Lupus
Hypertension
Dyslipidemia
Echo 07/2024: tricuspid regurgitation increased from trace to severe and systolic pulmonary artery pressure previously was estimated at 25 to 30 mmHg and now is estimated at 63 mmHg.
Echo 12/09/24: finds severely reduced left ventricular systolic function with ejection fraction of 20-25%. Global hypokinesis with septal akinesis. Stage III diastolic dysfunction. Moderate mitral regurgitation, severe tricuspid regurgitation with
estimated pulmonary artery pressure of 63 mmHg.
Plan:
-Weight is down to 150 lbs on 02/15/2025. Recent HF discharge weight was 140 lbs on 01/24/2025.
-Continue Lasix 80 mg IV BID. Patient was taking Lasix 80 mg PO BID prior to admission
-Patient with ICM, EF 20 to 25% by echo 12/09/2024, no need to repeat echo
-Labs reviewed by me 02/15/2025 and Cre improved to 1.0 with diuresis
-Outpatient dose of Toprol-XL 25 mg daily has been continued
-Outpatient dose of losartan 25 mg daily was continued initially, but now on hold for planned peripheral arteriogram
-Patient was started on Jardiance [address] Estrada 10/2024, but this medication appears to have been stopped with her ongoing GI symptoms and is not currently ordered and she was not taking it prior to admission
-Outpatient dose of spironolactone 25 mg daily was continued initially, but now on hold for planned peripheral arteriogram
-Outpatient dose of amiodarone 200 mg daily has been continued for her post CABG VF arrest. No known history of atrial arrhythmia and patient is not chronically on OAC
-Outpatient dose of Plavix 75 mg daily has been continued and this will presumably be long-term as patient cannot take aspirin due to history of anaphylactic allergy
-Patient continues with GI symptoms and had upper endoscopy 01/23/2025, but they did not find any obvious findings. Despite attempts at colonoscopy prep it was inadequate and colonoscopy was not attempted and she was recommended to follow-up as an
outpatient.
-Patient is optimized from a cardiac standpoint to proceed with planned vascular surgery procedure. Recommend telemetry monitoring perioperatively and avoid excessive IVF's. We will follow along
HPI: Patient came to [facility] ER today with increased LE edema and left heel wound and is now admitted for foot wound and acute HF, cardiology has been consulted. Patient previously admitted to [facility] 08/20/2024 until 08/26/2024 with NSTEMI and MV CAD.
Patient with previous anaphylactic allergy to aspirin and there was an attempt at aspirin desensitization starting on the night of 08/21/2024 and patient had swollen eyes and hand tremors so desensitization therapy was stopped and the family was not
interested in another attempt. It then came to light that the patient's family member is a senior animal husbandry technician at [facility] and the family requested transfer which was performed on 08/26/2024. As noted above patient had CABG and postop suffered VF
arrest. Post CABG cardiac cath showed patent grafts and patient ultimately had an Martini [employer] Eric ICD placed. [facility] were also right toe amputations that were performed all as part of her postop
course. Patient was just admitted to [facility] 01/20/2025 until 01/24/2025 with acute HFrEF and dysphagia, but GI workup was unrevealing in part because colonoscopy prep was inadequate. Left heel wound has been getting worse at home and patient is known
to the vascular surgery service, sounds like at some point she was supposed to get a peripheral angiogram that was delayed due to her last admission. Also, patient missed her cardiology visit on 02/07/2025 and called the next day to let us know that
she was gaining weight and at that time Dr. Estrada increased her Lasix to 80 mg BID, the patient denies any decrease in urine output and LE edema only worsened.
Progress Note - [employer] Scm Consultant
Subjective
Date of Service: February 15, 2025
She feels sick to her stomach, she does not feel any better since admission
Objective
Labs:
02/14/25 03:52
02/15/25 12:05
Labs
Hgb 9.5 g/dL (12.0-16.0) L 02/14/25 03:52
Hct 30.3 % (37.0-47.0) L 02/14/25 03:52
Plt Count 141 10^3/uL (130-400) 02/14/25 03:52
Sodium 141 mmol/L (135-145) 02/15/25 12:05
Potassium 4.4 mmol/L (3.5-5.1) 02/15/25 12:05
BUN 27 mg/dl (7-17) H 02/15/25 12:05
Creatinine 1.0 mg/dL (0.6-1.0) 02/15/25 12:05
Glucose 71 mg/dl (70-99) 02/15/25 12:05
Troponins
02/13/25
11:50
Troponin I < 0.012
Vital Signs and I&O:
Vital Signs
Temp Pulse Resp BP Pulse Ox
97.6 F 68 18 113/55 97
02/15/25 11:32 02/15/25 11:32 02/15/25 11:32 02/15/25 11:32 02/15/25 11:32
Vital Signs
Temp Pulse Resp BP Pulse Ox
97.6 F 68 18 113/55 97
02/15/25 11:32 02/15/25 11:32 02/15/25 11:32 02/15/25 11:32 02/15/25 11:32
Intake & Output
02/13/25 02/14/25 02/15/25 02/16/25
06:59 06:59 06:59 06:59
Intake Total 320 / 320 1440 / 1440
Output Total 400 / 400 200 / 200
Balance -80 / -80 1240 / 1240
Physical Exam
Physical Exam
GEN: NAD
HEENT: EOMI
LUNGS: RA. No audible wheeze
CV: SR on tele
--- NOTE | 2025-02-15 15:17 | CM ---
Addendum entered by Kat Naranjo 02/15/25 15:18:
Home with [facility].
Original Note:
Chart reviewed plan is to home when stable.
Plan; Home when stable, no needs.
[2025-02-15 15:44] VITALS: BP 117/63
--- NOTE | 2025-02-15 16:15 | W.PN.ID1 ---
Date of Service
Date of Service: February 15, 2025
Today's Communication
Replace cefepime with Unasyn
Assessment / Plan
# Worsening/progression of non-healing left heel wound.
# Severe PAD
# DM
# CAD, ICM
- Vascular following. For angiogram tomorrow
- Replace cefepime with Unasyn 3g IV q6h. Of note, abx likely ineffective due to severe PAD.
- Appreciate service center specialist.
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
Diabetes mellitus
CAD status post CABG August 2024
Ischemic cardiomyopathy EF 20 to 25%
History of V fib arrest.
Hypertension
HLD
SLE on chronic prednisone and Plaquenil
History of C. difficile
PAD with left lower extremity small vessel occlusive disease not amenable to revascularization
Right third toe partial amputation due to osteomyelitis
Right great toe amputation
Right first metatarsal resection
Chief Complaint
-: Other (Wound infection)
Subjective / Review of Systems
Stable
Vital Signs / Physical Exam
Vital Signs
Vital Signs
Temp Pulse Resp BP Pulse Ox
97.9 F 69 18 117/63 93
02/15/25 15:44 02/15/25 15:44 02/15/25 15:44 02/15/25 15:44 02/15/25 15:44
Physical Exam
Constitutional: No Acute Distress and Comfortable
Pulmonary: Clear
Gastrointestinal: Soft, Non Tender, Non Distended and Normal Bowel Sounds
Wound: Other (Left foot dressing in place)
Neurological: AO x 3
Objective Data
Lab Data
Lab Results
02/14/25 03:52
02/15/25 12:05
ESR 105 mm/hour (0-20) H 02/13/25 11:50
Estimated Creat Clear 53 ml/min 02/15/25 12:05
Lactic Acid Cancelled 02/13/25 18:15
Total Bilirubin 0.9 mg/dl (0.2-1.3) 02/13/25 16:11
AST 23 U/L (14-36) 02/13/25 16:11
ALT 18 U/L (0-35) 02/13/25 16:11
Alkaline Phosphatase 148 U/L (38-126) H 02/13/25 16:11
C-Reactive Protein 13.70 mg/L (0.0-10.00) H 02/13/25 16:11
Most recent labs reviewed.
Micro Results:
02/13/25 16:11 Blood Culture - Preliminary
Blood/Venous No Growth in 48 hours- Final report to follow
02/14/25 10:43 Wound Culture - Preliminary
Heel - Left Enterococcus species
Gram Stain - Preliminary
02/13/25 12:23 Urine Culture - Final
Urine
[2025-02-15] MEDS: NSS 1000 IV (16:31)
[2025-02-15 17:13] LABS: Glucose - Point of Care 62 mg/dl (70-99)
[2025-02-15 17:32] LABS: Troponin I < 0.012 ng/ml
[2025-02-15 17:50] LABS: Glucose - Point of Care 65 mg/dl (70-99)
[2025-02-15] MEDS: UNASYN IV ×2 (18:00→23:41)
[2025-02-15 18:24] LABS: Glucose - Point of Care 99 mg/dl (70-99)
[2025-02-15] MEDS: D5/0.9% SODIUM CHLORIDE 1000 IV (18:44)
[2025-02-15 20:29] LABS: Glucose - Point of Care 109 mg/dl (70-99)
[2025-02-15 23:00] VITALS: BP 122/69
[2025-02-16] VITALS (11 sets, daily range): BP systolic 12–128; BP diastolic 46–60; BMI 26.8
[2025-02-16 02:51] LABS: Glucose - Point of Care 146 mg/dl (70-99)
[2025-02-16] MEDS: UNASYN IV ×2 (05:40→17:17)
[2025-02-16 06:04] LABS: Hematocrit 33.8 % (37.0-47.0); Hemoglobin 10.2 g/dL (12.0-16.0); Mean Corp Hgb Conc. 30.2 g/dL (33.0-37.0); Mean Corpuscular Volume 77.0 fL (81.0-99.0); Platelet Count 157 10^3/uL (130-400); Red Cell Dist. Width 17.8 % (11.5-14.5)
[2025-02-16 06:07] LABS: Glucose - Point of Care 126 mg/dl (70-99)
[2025-02-16 06:14] LABS: Blood Urea Nitrogen 26 mg/dl (7-17); Calcium 8.2 mg/dl (8.4-10.2); Carbon Dioxide 22 mmol/L (22-30); Chloride 112 mmol/L (98-107); Estimated Creatinine Clearance 53 ml/min; Glucose 147 mg/dl (70-99); Potassium 4.3 mmol/L (3.5-5.1); Sodium 143 mmol/L (135-145); eGFR > 60.00
[2025-02-16] MEDS: D5/0.9% SODIUM CHLORIDE 1000 IV (06:20)
[2025-02-16] MEDS: NOVOLOG FLEXPEN-MODERATE RESISTANCE SC ×2 (08:43→17:40)
[2025-02-16] MEDS: LIPITOR PO (09:00)
[2025-02-16] MEDS: PACERONE PO (09:00)
--- NOTE | 2025-02-16 09:18 | W.PN.HOSP.TC ---
Today's Communication/Plan
-
Dextrose gtt, lower the rate
Hold oral meds
nausea is resolved
NPO for procedure
Son and pt want to discuss the procedure with vascular surgeon.
Assessment / Plan
Assessment / Plan
Physical Exam
General: No Apparent Distress and Comfortable
HEENT: Moist mucous membranes and Atraumatic
Respiratory: Rales (at bases ); No Wheezes
Cardiac: S1/S2 and Regular Rhythm
GI: Soft and Non Tender
Genito-urinary: No Cha
Musculoskeletal: No Clubbing, Edema, Left Lower Extremity and Edema, Right Lower Extremity
Skin: Other (left heel ulcer with foul smell )
Neuro: Alert, Oriented and Nonfocal/grossly intact; No Facial Droop or Tremors
Psych: Calm; No Agitated
64 female presented with worsening leg edema and left heel wound
# Nausea
Resolved, likely medication induced
c/w IV PPI
She was given IVF for hypoglycemia, lower the rate
IV ABx was changed to Unasyn
EGD 01/23/25 showed focal gastritis
# Left heel ulcerated wound due to DM & PAD
Patient and family decided to come to the hospital due to worsening wound with foul-smelling.
s/p IR for right central line placement.
Negative blood culture
Empiric intravenous Unasyn
per vascular: bilateral lower extremity arteriogram, possible MANAGER RETAIL/stent on 02/16
Son wanted to know more about procedure. I reached out to avascular surgery
Tylenol for pain
Pre-op evaluation with cardiology
Appreciate ID & Vascular surgery help
# Acute on chronic heart failure with a preserved ejection fraction
Patient feels better, no sob or chest pain . She is not in acute CHF now, lungs are clear and not hypoxia.
ECHO -11/2024-HFrEF with EF of 20 to 25%, global hypokinesis with septal akinesis, severe TR with PASP elevated to 63, moderate MR.
Daily weight check
Held Lasix when she could not eat, resume post op, she is NPO today
Appreciate cards input
# ANTONIO, Creatinine is coming down to normal
# Hypokalemia, replaced
#Normocytic anemia-
Anemia of chronic disease
#Type 2 diabetes mellitus-
She had hypoglycemia 02/15, held insulin , given IV dextrose gtt
Monitor for now, she is NPO for procedure, resume post op if starts to tolerate diet
#SLE-
Prior medications on admission, was on prednisone.
#Essential hypertension-
Continue with diuretic therapy if renal function stable. Continue with losartan, Toprol.
#Hyperlipidemia-
# h/o V fib arrest
- cont amiodarone
#Peripheral diabetic neuropathy-
#History of GERD-
IV PPI
#CAD with Recent CABG-
She denies chest pain.
Troponin negative X 2
- 08/2024
- cont Plavix.
#Anxiety/depression-
Continue citalopram 20 mg.
DVT prophylaxis-
Continue subcu hep
CODE STATUS-
Full code
Total time spent to see the patient, examine the patient, review data and lab result, discuss treatment plan with patient, nursing staff around 55 minutes
Anticipated Discharge: > 48 hours
Subjective/Interval History
-
Date of Service: February 16, 2025
No chest pain
No sob
No fevers
Objective Data
-
Labs:
Laboratory Results
02/16/25
05:23
WBC 4.8
Hgb 10.2 L
Hct 33.8 L
Plt Count 157
Sodium 143
Potassium 4.3
Chloride 112 H
Carbon Dioxide 22
BUN 26 H
Creatinine 1.0
Glucose 147 H
Calcium 8.2 L
Vital Signs:
Vital Signs
Temp Pulse Resp BP Pulse Ox
97.9 F 73 14 128/58 92
02/16/25 07:15 02/16/25 07:15 02/16/25 07:15 02/16/25 07:15 02/16/25 07:15
I&O
02/15/25 02/16/25 02/17/25
06:59 06:59 06:59
Intake Total 1440 / 1440 1580 / 1580
Output Total 200 / 200
Balance 1240 / 1240 1580 / 1580
[2025-02-16] MEDS: NSS (PRESERVATIVE FREE) 10 ML IV (10:15)
[2025-02-16] MEDS: PROTONIX IV 40 MG IV (10:16)
[2025-02-16] MEDS: HEPARIN 5000 UNITS SC ×2 (10:17→20:45)
[2025-02-16] MEDS: DAKIN'S SOLUTION 0.125% 1/4 STRENGTH 1 ML TOPICAL (10:17)
[2025-02-16] MEDS: TOPROL XL 25 MG PO (10:30)
--- NOTE | 2025-02-16 11:29 | W.PN.ID1 ---
Addendum entered and electronically signed by Mary Tabor MD 02/16/25 17:39:
Per Vascular, angiogram showed severe small vessel disease, not amenable to revascularization. High risk LimFlow failure. Per Vascular dc home on po abx.
Can transition Unasyn to amox-clav (Augmentin) 875mg po bid x 10 days. I had explained to family members abx is futile without blood flow.
Discussed with Dr. Pitts
Original Note:
Date of Service
Date of Service: February 16, 2025
Today's Communication
Continue Unasyn.
Assessment / Plan
# Worsening/progression of non-healing left heel ischemic/necrotic wounds.
# Severe PAD
# DM
# CAD, ICM
- For angiogram today
- Continue Unasyn 3g IV q6h.
Of note, abx probably ineffective due to severe PAD.
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
Diabetes mellitus
CAD status post CABG August 2024
Ischemic cardiomyopathy EF 20 to 25%
History of V fib arrest.
Hypertension
HLD
SLE on chronic prednisone and Plaquenil
History of C. difficile
PAD with left lower extremity small vessel occlusive disease not amenable to revascularization
Right third toe partial amputation due to osteomyelitis
Right great toe amputation
Right first metatarsal resection
Chief Complaint
-: Other (Wound infection)
Subjective / Review of Systems
No pain.
Vital Signs / Physical Exam
Vital Signs
Vital Signs
Temp Pulse Resp BP Pulse Ox
97.9 F 73 14 128/58 92
02/16/25 07:15 02/16/25 07:15 02/16/25 07:15 02/16/25 07:15 02/16/25 07:15
Physical Exam
Constitutional: Comfortable
Pulmonary: Clear
Gastrointestinal: Soft, Non Tender, Non Distended and Normal Bowel Sounds
Extremities: Negative Edema
Wound: Other (left lateral heel necrotic wounds dry)
Neurological: AO x 3
Objective Data
Lab Data
Lab Results
02/16/25 05:23
02/16/25 05:23
ESR 105 mm/hour (0-20) H 02/13/25 11:50
Estimated Creat Clear 53 ml/min 02/16/25 05:23
Lactic Acid Cancelled 02/13/25 18:15
Total Bilirubin 0.9 mg/dl (0.2-1.3) 02/13/25 16:11
AST 23 U/L (14-36) 02/13/25 16:11
ALT 18 U/L (0-35) 02/13/25 16:11
Alkaline Phosphatase 148 U/L (38-126) H 02/13/25 16:11
C-Reactive Protein 13.70 mg/L (0.0-10.00) H 02/13/25 16:11
Most recent labs reviewed.
Micro Results:
02/14/25 10:43 Wound Culture - Final
Heel - Left Enterococcus faecalis
Coagulase neg. staphylococcus
Gram Stain - Final
02/13/25 16:11 Blood Culture - Preliminary
Blood/Venous No Growth in 48 hours- Final report to follow
02/13/25 12:23 Urine Culture - Final
Urine
[2025-02-16 11:37] LABS: Glucose - Point of Care 159 mg/dl (70-99)
[2025-02-16] MEDS: NOVOLOG FLEXPEN-MODERATE RESISTANCE 1 UNITS SC (11:44)
--- NOTE | 2025-02-16 12:20 | W.PN.UPDATE ---
Update Note
Progress Note Update
I met with the patient and her son at bedside. Her son facilitated translation/communication. I reviewed Dr. Harris's outpatient note. She has left lower extremity wounds as detailed in the inpatient and outpatient medical record. She has known
lower extremity arterial disease. Plan for today is bilateral lower extremity arteriograms via right common femoral artery access. Possible endovascular intervention. The technical aspects of this procedure were discussed with her and her son in
detail. The benefits and rationale for this approach were discussed with her and her son in detail. Operative risks were discussed with both of them in detail including but not limited to bleeding, arterial access site injury, infection, contrast
nephropathy, distal embolization, inability to successfully complete endovascular intervention and the need for additional procedures. We also discussed the possibility of limb loss. She and her son expressed a clear understanding of our
conversation and agreed to proceed with surgery today as detailed above.
Taco Cha III, MD
Vascular Surgery
[facility]
--- NOTE | 2025-02-16 12:20 | W.SUR.PREOP ---
Pre-Operative Surgical Note
-
I have examined this patient prior to the performance of the scheduled procedure.
The patient's condition is unchanged from the time of the current History and
Physical and the patient is able to undergo the scheduled procedure.
--- NOTE | 2025-02-16 13:07 | W.PN.CARDCBS ---
Addendum entered and electronically signed by James Moran MD 02/16/25 15:34:
I saw and examined the patient.
The Network Consultant's note was reviewed and I agree with the note.
Comment: Briefly, 64-year-old woman past medical history of heart failure with severely reduced ejection fraction in the setting of ischemic cardiomyopathy with recent CABG and VF arrest status post ICD who presents with lower extremity edema and
heel wound and admitted for acute heart failure
Cardiac meds including diuretics on hold today for angiogram with vascular surgery - plan to resume tomorrow
Weight here is approximately 10 pounds above prior recorded weights
Will resume IV diuretics tomorrow
Monitor daily weights standing, renal function and electrolytes
Discussed with patient's son at bedside
Original Note:
Today's Communication / Plan
-
Lasix, losartan, and spironolactone on hold w/ plan for arteriogram today
Continue metoprolol
Continue plavix w/ h/o aspirin allergy
Impression / Plan
-
Primary care provider: Keli Gonzalez MD
Primary production sanitizer: Lan Estrada MD
Impression:
Admitted with LE edema and left heel wound 02/13/25
Recent admission for acute HF and dysphagia 01/20/2025 until 01/24/2025
Possible acute on chronic HFrEF
ICM EF 20 to 25% by echo 12/19/2024
Severe TR with PAP 63 mmHg
Chronic dysphagia, chronic abdominal pain
CAD s/p CABG with VILLAFUERTE to LAD, saphenous vein to diagonal, saphenous vein to obtuse marginal at [facility] 08/26/24
Postop VF arrest
Patent VILLAFUERTE to LAD, patent SVG to diagonal, patent SVG to OM by postop cardiac cath
s/p Martini [employer] SC ICD at [facility] 08/2024
h/o C. difficile postop CABG at [facility]
Anaphylactic aspirin allergy with previous mild allergic reaction during attempted aspirin desensitization therapy at [facility] 08/24/24
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
DM 2
Diabetic neuropathy
Lupus
Hypertension
Dyslipidemia
Echo 07/2024: tricuspid regurgitation increased from trace to severe and systolic pulmonary artery pressure previously was estimated at 25 to 30 mmHg and now is estimated at 63 mmHg.
Echo 12/09/24: finds severely reduced left ventricular systolic function with ejection fraction of 20-25%. Global hypokinesis with septal akinesis. Stage III diastolic dysfunction. Moderate mitral regurgitation, severe tricuspid regurgitation with
estimated pulmonary artery pressure of 63 mmHg.
Plan:
-Presented with LE edema. Admitted with possible acute HF exacerbation and L heel wound.
-Given a single dose of IV Lasix 02/14. Lasix now on hold.
-Weight 151 pounds 02/16. Creatinine stable at 1.0.
-She is planned for bilateral LE arteriograms with possible endovascular intervention today, 02/16.
-Would resume Lasix postprocedure.
-Known cardiomyopathy with a EF of 20 to 25% by most recent echo 11/2024. No need to repeat this admission.
-Continue medical therapy as able with Toprol, losartan, and spironolactone. Losartan and spironolactone on hold currently given plan for arteriogram.
-Continue amiodarone 200 mg daily for history of VF arrest post CABG. Heart rate stable.
-Continue Plavix 75 mg daily. Patient cannot take aspirin due to history of anaphylaxis.
-Will reassess in AM post procedure.
HPI: Patient came to [facility] ER today with increased LE edema and left heel wound and is now admitted for foot wound and acute HF, cardiology has been consulted. Patient previously admitted to [facility] 08/20/2024 until 08/26/2024 with NSTEMI and MV CAD.
Patient with previous anaphylactic allergy to aspirin and there was an attempt at aspirin desensitization starting on the night of 08/21/2024 and patient had swollen eyes and hand tremors so desensitization therapy was stopped and the family was not
interested in another attempt. It then came to light that the patient's family member is a senior locate technician at [employer] and the family requested transfer which was performed on 08/26/2024. As noted above patient had CABG and postop suffered VF
arrest. Post CABG cardiac cath showed patent grafts and patient ultimately had an Martini [employer] Eric ICD placed. Patient also had C. difficile postop in the [facility] there were also right toe amputations that were performed all as part of her postop
course. Patient was just admitted to [facility] 01/20/2025 until 01/24/2025 with acute HFrEF and dysphagia, but GI workup was unrevealing in part because colonoscopy prep was inadequate. Left heel wound has been getting worse at home and patient is known
to the vascular surgery service, sounds like at some point she was supposed to get a peripheral angiogram that was delayed due to her last admission. Also, patient missed her cardiology visit on 02/07/2025 and called the next day to let us know that
she was gaining weight and at that time Dr. Estrada increased her Lasix to 80 mg BID, the patient denies any decrease in urine output and LE edema only worsened.
Progress Note - Production Finisher
Subjective
Date of Service: February 16, 2025
Objective
Labs:
02/16/25 05:23
02/16/25 05:23
Labs
Hgb 10.2 g/dL (12.0-16.0) L 02/16/25 05:23
Hct 33.8 % (37.0-47.0) L 02/16/25 05:23
Plt Count 157 10^3/uL (130-400) 02/16/25 05:23
Sodium 143 mmol/L (135-145) 02/16/25 05:23
Potassium 4.3 mmol/L (3.5-5.1) 02/16/25 05:23
BUN 26 mg/dl (7-17) H 02/16/25 05:23
Creatinine 1.0 mg/dL (0.6-1.0) 02/16/25 05:23
Glucose 147 mg/dl (70-99) H 02/16/25 05:23
Troponins
02/15/25
16:44
Troponin I < 0.012
Vital Signs and I&O:
Vital Signs
Temp Pulse Resp BP Pulse Ox
97.9 F 73 14 128/58 92
02/16/25 07:15 02/16/25 07:15 02/16/25 07:15 02/16/25 07:15 02/16/25 07:15
Vital Signs
Temp Pulse Resp BP Pulse Ox
97.9 F 73 14 128/58 92
02/16/25 07:15 02/16/25 07:15 02/16/25 07:15 02/16/25 07:15 02/16/25 07:15
Intake & Output
02/14/25 02/15/25 02/16/25 02/17/25
06:59 06:59 06:59 06:59
Intake Total 320 / 320 1440 / 1440 1580 / 1580
Output Total 400 / 400 200 / 200
Balance -80 / -80 1240 / 1240 1580 / 1580
Physical Exam
Physical Exam
GEN: NAD
LUNGS: RA
CV: SR on tele
--- NOTE | 2025-02-16 13:43 | W.SUR.POST ---
Surgical Immediate Post Op
Note
Pre Op Diagnosis: PAD
Post Op Diagnosis: same
Procedure Performed: LLE diagnostic arteriogram
Primary Surgeon: Semaj
Secondary Surgeons: Severo PGY5
Anesthesia: Local and sedation
Estimated Blood Loss: <2cc
Fluids: See anesthesia flow sheet
Drains/Shunts: none
Specimens/Cultures: none
Doppler/Duplex/Angio (Y/N): Y
Complications: none
Operative Findings: No endovascular options
[2025-02-16 14:26] LABS: Glucose - Point of Care 147 mg/dl (70-99)
--- NOTE | 2025-02-16 14:36 | CM ---
CM reviewed chart, patient off floor. Patient for arteriogram today. Patient remains on IV antibitoics. Plan remains home with [facility] when stable. CM will continue to follow for all discharge planning needs.
Plan; home with [facility] when stable
--- NOTE | 2025-02-16 15:04 | OR.RPT ---
Operative Report
Operative Report
Date of Operation: 02/16/2025
Pre Op Diagnosis:
1. [place] artery atherosclerosis with gangrene of left heel
2. [place] artery atherosclerosis with right foot ulcers
3. Heart failure
4. Diabetes with peripheral arterial occlusive disease
Post Op Diagnosis:
1. [place] artery atherosclerosis with gangrene of left heel
2. [place] artery atherosclerosis with right foot ulcers
3. Heart failure
4. Diabetes with peripheral arterial occlusive disease
Procedure:
1.) Selective catheterization of third order lower extremity artery
2.) Diagnostic aortobiiliac arteriogram
3.) Diagnostic BILATERAL lower extremity arteriograms
4.) Ultrasound-guided percutaneous access to the right common femoral artery
Surgeon: Taco Cha III, MD
Vaudeville Actor: David Elkins MD, PGY5
Anesthesia: Sedation with local
Fluoroscopy:
30.4 min
114 mGy
34.92 gy.cm2
Complications: None
Estimated Blood Loss: Less than 20 cc
History and Indications for Procedure: 64-year-old female with gangrenous left heel wound and right foot wounds. She was taken to the operating room for bilateral lower extremity arteriograms and possible endovascular intervention.
Procedure in Detail: Adelaida Leon was correctly identified and placed supine on the operating table. After adequate induction of anesthesia the bilateral groins were prepped and draped in the usual sterile fashion. A timeout was performed with
the nursing and anesthesia staff confirming the patient's identity as well as the nature and laterality of the procedure.
The right common femoral artery was identified under ultrasound guidance. The artery was patent. The superior and inferior aspects of the femoral head were identified with radiographic guidance and marked at the skin level. The proposed puncture
site was infiltrated with local anesthesia. Under ultrasound guidance we accessed the right common femoral artery with a micropuncture needle and upsized to a 5 Fr sheath over a [employer] wire. The wire and a [employer] hook flush catheter were
advanced into the distal abdominal aorta and a diagnostic aorto-biiliac arteriogram was performed:
AORTO-ILIAC ARTERIOGRAM:
Aorta: Patent with no significant stenosis identified
Right common iliac artery: Patent with no significant stenosis identified
Right external iliac artery: Patent with no significant stenosis identified
Left common iliac artery: Patent with no significant stenosis identified
Left external iliac artery: Patent with no significant stenosis identified
Under roadmap guidance using a Glidewire and the [employer] hook catheter we selected the left common iliac artery and then the external iliac artery. A catheter was tracked up and over the aortic bifurcation and placed in the distal external iliac
artery. A diagnostic left lower extremity arteriogram was then performed which demonstrated the following:
LEFT LOWER EXTREMITY:
Common femoral artery: Patent with no stenosis identified
Profunda femoral artery: Patent with no stenosis identified
Superficial femoral artery: Patent with no stenosis identified
Popliteal artery: Patent with no significant stenosis identified
Anterior tibial artery: Patent. Sluggish flow relative to the peroneal artery. Dorsalis pedis artery occludes in the foot. Significant small vessel disease identified
Tibioperoneal trunk: Patent
Peroneal artery: Patent to the ankle with no significant stenosis identified.
Posterior tibial artery: Patent proximally. Diminutive. Occluded distal artery with limited reconstitution at the ankle identified. Plantar branches occluded with severe small vessel occlusive disease in this distribution.
ENDOVASCULAR INTERVENTION: Systemic heparin was administered. Selected the superficial femoral artery with wire and catheter. Exchanged out for a 5 Fr 70 cm sheath over a Storq wire. Selected the posterior tibial artery under roadmap guidance with
Quick[place] catheter and glidewire. Advanced a 0.014 Mongo wire and 0.014 SPEX catheter through the posterior tibial artery. Advanced through the occluded segment to the level of the ankle but could not advance wire into the reconstituted segment
at the ankle. Multiple attempts were made unsuccessfully.
Prepped and draped the left foot in the usual sterile fashion. Under ultrasound guidance I identified the distal posterior tibial artery at the ankle. This was at the level where it reconstituted on fluoroscopy. The artery was heavily calcified
circumferentially. I made several attempts to gain retrograde pedal access to the posterior tibial artery but was unsuccessful. At this point we abandoned additional attempts to complete the endovascular intervention on the posterior tibial artery.
The wire and catheter were removed from the 5 [place] sheath. The 5 [place] sheath was pulled back into the right external iliac artery. A runoff arteriogram of the right lower extremity was performed which demonstrated the following:
RIGHT LOWER EXTREMITY:
Common femoral artery: Patent with no stenosis identified
Profunda femoral artery: Patent with no stenosis identified
Superficial femoral artery: Patent with no stenosis identified. Sluggish flow.
Popliteal artery: Patent. Moderate focal stenosis behind the knee. Below the knee segment patent.
Anterior tibial artery: Patent. Single-vessel tibial artery runoff distally.
Tibioperoneal trunk: Patent. High-grade stenosis.
Peroneal artery: Occluded
Posterior tibial artery: Patent proximally. Diminutive. Occluded thereafter with no distal reconstitution identified
At this point we concluded the procedure. Protamine was administered. The sheath was pulled and direct manual pressure was held over the puncture site until hemostasis was achieved. A sterile dressing was applied.
The patient tolerated the procedure well and was taken to the recovery area in stable condition.
Attestation: I was present and responsible for the entire procedure.
Signed:
Taco Cha III, MD
Vascular Surgery
[facility]
[2025-02-16] MEDS: PLAVIX PO (17:12)
[2025-02-16 17:38] LABS: Glucose - Point of Care 123 mg/dl (70-99)
[2025-02-16] MEDS: NSS 1000 IV (17:47)
[2025-02-16] MEDS: AUGMENTIN 875 MG/125 MG 1 TABLET PO (20:48)
[2025-02-16] MEDS: D5/0.9% SODIUM CHLORIDE IV (21:44)
[2025-02-16 21:48] LABS: Glucose - Point of Care 155 mg/dl (70-99)
[2025-02-16] MEDS: LANTUS 0.07 UNITS SC (21:48)
[2025-02-16] MEDS: ZOFRAN 4 MG IV (22:13)
[2025-02-17 05:00] LABS: Hematocrit 34.6 % (37.0-47.0); Hemoglobin 10.3 g/dL (12.0-16.0); Mean Corp Hgb Conc. 29.8 g/dL (33.0-37.0); Mean Corpuscular Volume 77.8 fL (81.0-99.0); Platelet Count 158 10^3/uL (130-400); Red Cell Dist. Width 17.9 % (11.5-14.5)
[2025-02-17 05:19] LABS: Blood Urea Nitrogen 22 mg/dl (7-17); Calcium 8.1 mg/dl (8.4-10.2); Carbon Dioxide 24 mmol/L (22-30); Chloride 113 mmol/L (98-107); Estimated Creatinine Clearance 59 ml/min; Glucose 154 mg/dl (70-99); Potassium 4.4 mmol/L (3.5-5.1); Sodium 144 mmol/L (135-145); eGFR > 60.00
[2025-02-17 06:00] VITALS: BMI 26.5
[2025-02-17 07:10] VITALS: BP 125/60
--- NOTE | 2025-02-17 07:36 | W.PN.CARDCBS ---
Addendum entered and electronically signed by James Moran MD 02/17/25 11:55:
I saw and examined the patient.
The Monogram Maker's note was reviewed and I agree with the note.
Comment: Briefly, 64-year-old woman past medical history of heart failure with severely reduced ejection fraction in the setting of ischemic cardiomyopathy with recent CABG and VF arrest status post ICD who presents with lower extremity edema and
heel wound and admitted for acute heart failure
Weight here is approximately 10 pounds above prior recorded weights and appears volume overloaded on exam
ProBNP higher today at 15k
Would resume IV lasix at 80mg BID
Add back losartan for afterload reduction
Monitor daily weights standing, renal function and electrolytes
Discussed with nursing and patient's son at bedside
Original Note:
Today's Communication / Plan
-
Restart IV lasix this AM
Follow weights, renal function
Continue plavix
Impression / Plan
-
Primary care provider: Keli Gonzalez MD
Primary poultry packer: Lan Estrada MD
Impression:
Admitted with LE edema and left heel wound 02/13/25
Recent admission for acute HF and dysphagia 01/20/2025 until 01/24/2025
Acute on chronic HFrEF
ICM EF 20 to 25% by echo 12/19/2024
Severe TR with PAP 63 mmHg
Chronic dysphagia, chronic abdominal pain
CAD s/p CABG with VILLAFUERTE to LAD, saphenous vein to diagonal, saphenous vein to obtuse marginal at [facility] 08/26/24
Postop VF arrest
Patent VILLAFUERTE to LAD, patent SVG to diagonal, patent SVG to OM by postop cardiac cath
s/p Martini [employer] SC ICD at [facility] 08/2024
h/o C. difficile postop CABG at [facility]
Anaphylactic aspirin allergy with previous mild allergic reaction during attempted aspirin desensitization therapy at [facility] 08/24/24
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
DM 2
Diabetic neuropathy
Lupus
Hypertension
Dyslipidemia
Echo 07/2024: tricuspid regurgitation increased from trace to severe and systolic pulmonary artery pressure previously was estimated at 25 to 30 mmHg and now is estimated at 63 mmHg.
Echo 12/09/24: finds severely reduced left ventricular systolic function with ejection fraction of 20-25%. Global hypokinesis with septal akinesis. Stage III diastolic dysfunction. Moderate mitral regurgitation, severe tricuspid regurgitation with
estimated pulmonary artery pressure of 63 mmHg.
Plan:
-Presented with LE edema. Admitted with acute HF exacerbation and L heel wound.
-Given a single dose of IV Lasix 02/14 and subsequently lasix was placed on hold in anticipation of angiogram 02/16.
-Underwent bilateral lower extremity arteriograms 02/16/2025. Plan is for OP follow up w/ vascular.
-Notes no SOB this AM, however is struggling w/ nausea. No chest pain.
-Creatinine stable this a.m. at 0.9. Weight stable at 151 pounds 02/17. Weight is approximately 10 pounds higher than weights recorded during prior admission.
-Will resume IV Lasix this a.m. Follow daily weights, I&O's, renal function with resuming.
-Known cardiomyopathy with a EF of 20 to 25% by most recent echo 11/2024. No need to repeat this admission.
-Continues on Toprol. Losartan and spironolactone have been on hold in preparation for arteriogram 02/16. Resume as able.
-Continue amiodarone 200 mg daily for history of VF arrest post CABG. Heart rate stable.
-Continue Plavix 75 mg daily. Patient cannot take aspirin due to history of anaphylaxis.
-Continue Lipitor 40 mg daily.
HPI: Patient came to [facility] ER today with increased LE edema and left heel wound and is now admitted for foot wound and acute HF, cardiology has been consulted. Patient previously admitted to [facility] 08/20/2024 until 08/26/2024 with NSTEMI and MV CAD.
Patient with previous anaphylactic allergy to aspirin and there was an attempt at aspirin desensitization starting on the night of 08/21/2024 and patient had swollen eyes and hand tremors so desensitization therapy was stopped and the family was not
interested in another attempt. It then came to light that the patient's family member is a senior instructional media services technician at [facility] and the family requested transfer which was performed on 08/26/2024. As noted above patient had CABG and postop suffered VF
arrest. Post CABG cardiac cath showed patent grafts and patient ultimately had an Martini [employer] ICD placed. Patient also had C. difficile postop in the [facility] there were also right toe amputations that were performed all as part of her postop
course. Patient was just admitted [facility] 01/20/2025 until 01/24/2025 with acute HFrEF and dysphagia, but GI workup was unrevealing in part because colonoscopy prep was inadequate. Left heel wound has been getting worse at home and patient is known
to the vascular surgery service, sounds like at some point she was supposed to get a peripheral angiogram that was delayed due to her last admission. Also, patient missed her cardiology visit on 02/07/2025 and called the next day to let us know that
she was gaining weight and at that time Dr. Estrada increased her Lasix to 80 mg BID, the patient denies any decrease in urine output and LE edema only worsened.
Progress Note - Gallery Or Museum Attendant
Subjective
Date of Service: February 17, 2025
No SOB or chest pain reported. Does have notable nausea.
Objective
Labs:
02/17/25 04:42
02/17/25 04:42
Labs
Hgb 10.3 g/dL (12.0-16.0) L 02/17/25 04:42
Hct 34.6 % (37.0-47.0) L 02/17/25 04:42
Plt Count 158 10^3/uL (130-400) 02/17/25 04:42
Sodium 144 mmol/L (135-145) 02/17/25 04:42
Potassium 4.4 mmol/L (3.5-5.1) 02/17/25 04:42
BUN 22 mg/dl (7-17) H 02/17/25 04:42
Creatinine 0.9 mg/dL (0.6-1.0) 02/17/25 04:42
Glucose 154 mg/dl (70-99) H 02/17/25 04:42
Troponins
02/15/25
16:44
Troponin I < 0.012
Vital Signs and I&O:
Vital Signs
Temp Pulse Resp BP Pulse Ox
97.5 F 64 20 110/56 92
02/16/25 23:38 02/16/25 23:38 02/16/25 23:38 02/16/25 23:38 02/16/25 23:38
Vital Signs
Temp Pulse Resp BP Pulse Ox
97.5 F 64 20 110/56 92
02/16/25 23:38 02/16/25 23:38 02/16/25 23:38 02/16/25 23:38 02/16/25 23:38
Intake & Output
02/15/25 02/16/25 02/17/25 02/18/25
06:59 06:59 06:59 06:59
Intake Total 1440 / 1440 1580 / 1580 480 / 480
Output Total 200 / 200
Balance 1240 / 1240 1580 / 1580 480 / 480
Physical Exam
Physical Exam
GEN: No distress, awake, alert, oriented x3
HEENT: supple, anicteric, mmm
LUNGS: CTA b/l, no wheezes/rales
CV: Reg, S1/S2, no murmur
EXT: L foot wound wrapped. +1 edema
NEURO: Gross non-focal
SKIN: Warm, dry
[2025-02-17 07:58] LABS: Glucose - Point of Care 152 mg/dl (70-99)
--- NOTE | 2025-02-17 09:30 | W.PN.HOSP.TC ---
Today's Communication/Plan
-
Abdominal US
Give Zofran
Ok to give Lasix
c/w insulin
GI ocnsult
Assessment / Plan
Assessment / Plan
Physical Exam
General: No Apparent Distress and Comfortable
HEENT: Moist mucous membranes and Atraumatic
Respiratory: Rales (at bases ); No Wheezes
Cardiac: S1/S2 and Regular Rhythm
GI: Soft and Non Tender
Genito-urinary: No Cha
Musculoskeletal: No Clubbing, Edema, Left Lower Extremity and Edema, Right Lower Extremity
Skin: Other (left heel ulcer with foul smell )
Neuro: Alert, Oriented and Nonfocal/grossly intact; No Facial Droop or Tremors
Psych: Calm; No Agitated
64 female presented with worsening leg edema and left heel wound
# Nausea
She is back to nausea
Possible gastritis or Gastroparesis
Will do US, she complains of upper abd discomfort. GB was removed. No fever or leukocytosis, she denies constipation or diarrhea, reports normal BM.
c/w IV PPI
IV ABx was changed to Unasyn the Augmentin.
EGD 01/23/25 showed focal gastritis
Will consult GI
# Left heel ulcerated wound due to DM & PAD
Patient and family decided to come to the hospital due to worsening wound with foul-smelling.
s/p IR for right central line placement.
s/p arteriogram 02/16 showed significant PAD, not amenable to stent placement.
Negative blood culture
Empiric antibiotic
Tylenol for pain
Appreciate ID & Vascular surgery help
# Acute on chronic heart failure with a preserved ejection fraction
Patient feels better, no sob or chest pain . She is not in acute CHF now, lungs are clear and not hypoxia.
ECHO -11/2024-HFrEF with EF of 20 to 25%, global hypokinesis with septal akinesis, severe TR with PASP elevated to 63, moderate MR.
Daily weight check
Held Lasix when she could not eat, resume post op,
Appreciate cards input
# ANTONIO, Creatinine is coming down to normal
# Hypokalemia, replaced
#Normocytic anemia-
Anemia of chronic disease
#Type 2 diabetes mellitus-
c/w insulin, avoid hypoglycemia.
#SLE-
Prior medications on admission, was on prednisone.
#Essential hypertension-
Continue with diuretic therapy if renal function stable. Continue with losartan, Toprol.
#Hyperlipidemia-
# h/o V fib arrest
- cont amiodarone
#Peripheral diabetic neuropathy-
#History of GERD-
IV PPI
#CAD with Recent CABG-
She denies chest pain.
Troponin negative X 2
- 08/2024
- cont Plavix.
#Anxiety/depression-
Continue citalopram 20 mg.
DVT prophylaxis-
Continue subcu hep
CODE STATUS-
Full code
Total time spent to see the patient, examine the patient, review data and lab result, discuss treatment plan with patient, nursing staff around 55 minutes
Anticipated Discharge: 24 - 48 hours
Subjective/Interval History
-
Date of Service: February 17, 2025
Feels nausea
Objective Data
-
Labs:
Laboratory Results
02/17/25
04:42
WBC 5.6
Hgb 10.3 L
Hct 34.6 L
Plt Count 158
Sodium 144
Potassium 4.4
Chloride 113 H
Carbon Dioxide 24
BUN 22 H
Creatinine 0.9
Glucose 154 H
Calcium 8.1 L
Vital Signs:
Vital Signs
Temp Pulse Resp BP Pulse Ox
97.8 F 66 18 125/60 93
02/17/25 07:10 02/17/25 07:10 02/17/25 07:10 02/17/25 07:10 02/17/25 07:10
I&O
02/16/25 02/17/25 02/18/25
06:59 06:59 06:59
Intake Total 1580 / 1580 480 / 480
Balance 1580 / 1580 480 / 480
[2025-02-17] MEDS: DAKIN'S SOLUTION 0.125% 1/4 STRENGTH 473 ML TOPICAL (10:47)
[2025-02-17] MEDS: PROTONIX IV 40 MG IV (10:58)
[2025-02-17] MEDS: NSS (PRESERVATIVE FREE) 10 ML IV (10:58)
[2025-02-17] MEDS: LASIX 40 MG IV (11:04)
[2025-02-17] MEDS: NOVOLOG FLEXPEN-MODERATE RESISTANCE SC ×2 (11:08)
[2025-02-17 11:10] LABS: Glucose - Point of Care 116 mg/dl (70-99)
[2025-02-17] MEDS: REGLAN 5 MG IV (11:13)
--- NOTE | 2025-02-17 12:56 | PTCARENOTE ---
Assumed care of pt from previous nurse. Pt with some discomfort to abdomen, pain medication provided with positive results. Pt call dobson is within reach, pt rings terrance., bed alarm in place. will cont to monitor.
[2025-02-17] MEDS: PACERONE PO (12:58)
[2025-02-17] MEDS: AUGMENTIN 875 MG/125 MG PO (12:58)
[2025-02-17] MEDS: HEPARIN SC (12:58)
[2025-02-17] MEDS: PLAVIX PO (12:58)
[2025-02-17] MEDS: LIPITOR PO (12:58)
[2025-02-17] MEDS: TOPROL XL PO (12:59)
--- NOTE | 2025-02-17 13:14 | CON.GI ---
Consultation
-
Date/Time Consultation Requested: 02/17/2025
Date/Time Consultation Performed: 02/17/2025
Requesting Provider: Dr. Pitts
Performing Provider: Dr. Steiner
Reason for Consultation: Nausea
Medical History
Chief Complaint / HPI
History of Present Illness:
Patient is a 64-year-old female with history of ischemic cardiomyopathy, severe tricuspid regurgitation, CAD status post CABG August 2024, CHF with an EF of 20%, insulin-dependent diabetes, peripheral vascular disease, diabetic neuropathy and
lupus, history of V-fib arrest status post ICD who has been seen by GI inpatient including most recently early January 2025 for weight loss and dysphagia now back with heart failure and foul-smelling wound. She has been hospitalized multiple times
this year for CABG, pneumonia, toe amputation, abdominal pain, dysphagia and 60 pound weight loss over 6 months since her surgery. Has known constipation.
GIs been consulted on 02/17/2025 for persistent nausea.
Patient states nausea had only been for the past couple of days and started directly after the arteriogram. She had local anesthesia for that test. Some of her antibiotics were changed.. The hospitalist who is currently in the room states she
vomited on and again this morning which prompted the GI consult. She was given some Reglan which vastly improved her nausea and she has no further symptoms right now.
Patient states when she takes pills on an empty stomach she feels nauseated.
Patient now comes to the hospital 02/13/2025 with lower extremity edema, wound and heart failure.
Being seen by multiple specialists including cardiology, vascular who s/p arteriogram 02/16 showed significant PAD, not amenable to stent placement.
Today cardiology thought she was volume overloaded with a high BNP and resumed IV Lasix 80 mg twice daily restarted losartan.
Past Medical History
Past Medical History: Other (Asthma, hypertension, hyperlipidemia, diabetes, neuropathy, peripheral vascular disease, lupus, CAD status post CABG 08/2024, CHF with an EF of 20%, pneumonia)
Past Surgical History: Other (CABG, 08/2024 at [facility], cholecystectomy, right toe amputation 08/2024)
Social History
Tobacco: Non-Smoker
Alcohol: None
Personal:
Living: With Family
Family History
Family History: Reviewed & Not Pertinent
Allergies / Home Medications
Allergy/AdvReac Type Severity Reaction Status Date / Time
aspirin Allergy Anaphylaxis Verified 02/08/25 13:56
/rash
�Medication �Instructions �Recorded
gabapentin 800 mg tablet 400 mg PO DAILYPRN PRN nerve pain 05/09/21
(Neurontin)
amiodarone 200 mg tablet 200 mg PO DAILY Arrhythmia 01/20/25
atorvastatin 40 mg tablet 40 mg PO DAILY High Cholesterol 01/20/25
citalopram 20 mg tablet 20 mg PO DAILY Mental 01/20/25
Health/Anxiety
clopidogrel 75 mg tablet 75 mg PO DAILY Blood Clot 01/20/25
Prevention/Tx
metoprolol succinate 25 mg 25 mg PO DAILY Heart 01/20/25
tablet,extended release 24 hr Disease/Condition
empagliflozin 10 mg tablet 10 mg PO DAILY Heart Failure #30 01/24/25
(Jardiance) tabs
spironolactone 25 mg tablet 25 mg PO DAILY #30 tabs 01/24/25
furosemide 40 mg tablet 80 mg PO BID AT 0800,1600 Heart 02/13/25
Failure
insulin aspart U-100 100 unit/mL 7 sliding scale dose SC AC Diabetes 02/13/25
subcutaneous solution
insulin glargine 100 unit/mL 35 unit SC HS Diabetes 02/13/25
subcutaneous solution (Lantus
U-100 Insulin)
losartan 25 mg tablet 25 mg PO DAILY Blood Pressure 02/13/25
Review of Systems
-
History Source: Family
Constitutional: Reports Weight Gain
Musculoskeletal: Reports Edema
Vital Signs
Temp Pulse Resp BP Pulse Ox
97.8 F 68 18 130/72 93
02/17/25 07:10 02/17/25 11:04 02/17/25 07:10 02/17/25 11:04 02/17/25 07:10
Physical Exam
Exam
General: Other (Chronically ill-appearing female)
HEENT: Anicteric
Cardiac: Murmur
GI: Soft, Non Tender and Normal Bowel Sounds
Musculoskeletal: Edema
Neuro: AO x 3
Results
WBC 5.6 10^3/uL (4.8-10.8) 02/17/25 04:42
Hgb 10.3 g/dL (12.0-16.0) L 02/17/25 04:42
Hct 34.6 % (37.0-47.0) L 02/17/25 04:42
MCV 77.8 fL (81.0-99.0) L 02/17/25 04:42
Plt Count 158 10^3/uL (130-400) 02/17/25 04:42
Absolute Neuts (auto) 3.1 10^3/uL (1.4-6.5) 02/13/25 11:50
Sodium 144 mmol/L (135-145) 02/17/25 04:42
Potassium 4.4 mmol/L (3.5-5.1) 02/17/25 04:42
Chloride 113 mmol/L (98-107) H 02/17/25 04:42
Carbon Dioxide 24 mmol/L (22-30) 02/17/25 04:42
BUN 22 mg/dl (7-17) H 02/17/25 04:42
Creatinine 0.9 mg/dL (0.6-1.0) 02/17/25 04:42
Calcium 8.1 mg/dl (8.4-10.2) L 02/17/25 04:42
Total Bilirubin 0.9 mg/dl (0.2-1.3) 02/13/25 16:11
AST 23 U/L (14-36) 02/13/25 16:11
ALT 18 U/L (0-35) 02/13/25 16:11
Alkaline Phosphatase 148 U/L (38-126) H 02/13/25 16:11
Diagnostic Image Results:
--02/17/2025 abdominal ultrasound shows cholecystectomy with no significant pathology, trace ascites
ECHO -11/2024-HFrEF with EF of 20 to 25%, global hypokinesis with septal akinesis, severe TR with PASP elevated to 63, moderate MR.
01/20/25 CT Abd/pelvis Wo Iv Cont
IMPRESSION:
Mild ascites. New.
Findings suggesting moderate volume overload or third spacing. New.
Limited exam without oral and IV contrast.
Too small to characterize hypodense left renal lesion likely a benign cyst. Stable.
Moderate fecal material throughout the colon. Progressed
Mild diverticulosis. Stable
Findings suggesting mild bibasilar pulmonary fibrosis. Stable
01/20/25 US abdomen
IMPRESSION:
1. Mild to moderate diffuse liver disease (possibly passive hepatic venous congestion).
2. No sonographic evidence for biliary obstruction or ascites.
3. Previous cholecystectomy.
11/30/24 CT Abd/pel W Iv And Oral Contr
IMPRESSION:
No focal intrinsic abnormality of the left upper quadrant abdominal soft tissues.
Symmetric renal excretion. Small simple left renal cyst.
Prior cholecystectomy.
Unremarkable appendix.
No intestinal obstruction or free air. Evaluation of large bowel limited by moderate volume stool.
Prior GI Procedures:
EGD: 01/23/2025 EGD for abdominal pain left upper quadrant, dysphagia early satiety and weight loss with Dr. Bowman -normal esophagus, mild nodularity and erythema in the gastric fundus, mucosal papule in the stomach that was biopsied and normal
small bowel. Biopsies of the fundus showed focal acute gastritis, negative for H. pylori, antral nodule was reactive gastropathy with no dysplasia
Colonoscopy: Unable to prep last admission
Assessment / Plan
-
Patient is a 64-year-old female with history of ischemic cardiomyopathy, severe tricuspid regurgitation, CAD status post CABG August 2024, CHF with an EF of 20%, insulin-dependent diabetes, peripheral vascular disease, diabetic neuropathy and
lupus, history of V-fib arrest status post ICD who has been seen by GI inpatient multiple times including most recently early January 2025 for weight loss and dysphagia now back with heart failure and foul-smelling wound.
# Acute onset intermittent nausea since with 2 episodes of vomiting-
Multiple etiologies for nausea in this patient including medication induced versus gastroparesis versus volume overload
--Unfortunately her medications are necessary -high incidence of nausea includes her amiodarone, antibiotics
--Her antibiotics have been changed
-- Cardiology is working on diuresis which can also help with nausea
-- To do a short course of Reglan. Her current QTc on 02/13/2025 was 400
-- PPI was started on 02/15/2025
-- Check LFTs tomorrow -patient has significant tricuspid regurgitation which can cause backflow and congestive hepatopathy. Generally cholestatic picture
-- Reviewed ultrasound from today on 02/17/2025 with no significant findings to explain her nausea. Gallbladder is absent. Trace ascites in the upper abdomen likely secondary to backflow from her heart failure
# Left heel ulcerated wound due to DM & PAD
s/p arteriogram 02/16 showed significant PAD, not amenable to stent placement.
#ECHO -11/2024-HFrEF with EF of 20 to 25%, global hypokinesis with septal akinesis, severe TR with PASP elevated to 63, moderate MR.
# h/o V fib arrest
-On amiodarone
#Peripheral diabetic neuropathy-
#History of GERD-gastritis on EGD on PPI
#CAD with Recent CABG-
- 08/2024 on Plavix cont Plavix.
#Anxiety/depression-
Data Reviewed
-
Radiology: Report Reviewed by me
Ultrasound: Report Reviewed by me
Old Records: Reviewed
-
-
Thank you for consultation and allowing me to participate in the patient's care. Please call the forest and conservation worker GI physician during the after hours with any questions or concerns.
--- NOTE | 2025-02-17 14:37 | PTCARENOTE ---
Assumed care of pt from previous nurse. Pt denies pain. Reports nausea, no vomiting. reglan provided with positive results. Pt dressings changed per wound care orders. Pt call dobson is within reach, pt rings terrance. will cont to monitor.
[2025-02-17 15:36] VITALS: BP 114/60
[2025-02-17] MEDS: LASIX 80 MG IV (16:35)
[2025-02-17 17:37] LABS: Glucose - Point of Care 159 mg/dl (70-99)
[2025-02-17] MEDS: NOVOLOG FLEXPEN-MODERATE RESISTANCE 1 UNITS SC (18:02)
[2025-02-17] MEDS: HEPARIN 5000 UNITS SC (20:03)
[2025-02-17 21:44] LABS: Glucose - Point of Care 160 mg/dl (70-99)
[2025-02-17] MEDS: LANTUS 0.07 UNITS SC (21:47)
[2025-02-17] MEDS: NEURONTIN 400 MG PO (21:48)
[2025-02-17 23:42] VITALS: BP 116/69
[2025-02-18 05:48] LABS: ALT (SGPT) 14 U/L (0-35); AST (SGOT) 18 U/L (14-36); Albumin 3.0 g/dl (3.5-5.0); Alkaline Phosphatase 114 U/L (38-126); Total Protein 6.5 g/dl (6.3-8.2)
[2025-02-18 07:36] VITALS: BP 96/45
[2025-02-18 08:04] LABS: Glucose - Point of Care 70 mg/dl (70-99)
[2025-02-18] MEDS: NOVOLOG FLEXPEN-MODERATE RESISTANCE SC ×3 (08:14→17:18)
[2025-02-18] MEDS: PACERONE 200 MG PO (08:15)
[2025-02-18] MEDS: LIPITOR 40 MG PO (08:15)
[2025-02-18] MEDS: TOPROL XL PO (08:15)
[2025-02-18] MEDS: PLAVIX 75 MG PO (08:15)
[2025-02-18] MEDS: LASIX 80 MG IV ×2 (08:16→16:36)
[2025-02-18] MEDS: NSS (PRESERVATIVE FREE) 10 ML IV (08:16)
[2025-02-18] MEDS: PROTONIX IV 40 MG IV (08:16)
[2025-02-18] MEDS: HEPARIN 5000 UNITS SC ×2 (08:16→21:54)
[2025-02-18] MEDS: DAKIN'S SOLUTION 0.125% 1/4 STRENGTH 473 ML TOPICAL (08:17)
[2025-02-18] MEDS: REGLAN 5 MG IV ×2 (08:17→13:15)
--- NOTE | 2025-02-18 11:10 | W.PN.HOSP.TC ---
Today's Communication/Plan
-
IV Lasix
Adding holding parameters to BP meds
resume Augmentin
Lower Lantus
Pre-meal low dose Reglan, short course
Consult PT/OT
Assessment / Plan
Assessment / Plan
Encounter using language line on daily bases
Physical Exam
General: No Apparent Distress and Comfortable
HEENT: Moist mucous membranes and Atraumatic
Respiratory: much less rales (at bases ); No Wheezes
Cardiac: S1/S2 and Regular Rhythm
GI: Soft and Non Tender
Genito-urinary: No Cha
Musculoskeletal: No Clubbing, less edema in lower legs.
Skin: eft heel dressing.
Neuro: Alert, Oriented and Nonfocal/grossly intact; No Facial Droop or Tremors
Psych: Calm; No Agitated
64 female presented with worsening leg edema and left heel wound
# Nausea
She is better today
Now on low dose Reglan AC and can taper
Possible gastritis or Gastroparesis or congestive gastropathy
US did not hsow acute findings.
No fever or leukocytosis, she denies constipation or diarrhea, reports normal BM.
c/w IV PPI
IV ABx was changed to Unasyn the Augmentin. Can resume since able to take oral.
EGD 01/23/25 showed focal gastritis
/W GI, c/w PPI , trial of short course of Reglan.
# Left heel ulcerated wound due to DM & PAD
Patient and family decided to come to the hospital due to worsening wound with foul-smelling.
s/p IR for right central line placement.
s/p arteriogram 02/16 showed significant PAD, not amenable to stent placement.
Negative blood culture
Empiric antibiotic
Tylenol for pain
Appreciate ID & Vascular surgery help, f/u in office with Dr Harris.
# Acute on chronic heart failure with a preserved ejection fraction
Patient feels better, no sob or chest pain . No hypoxia. d/w cardiology , c/w IV high dose Lasix as long as Bp tolerates. Holding other cardiac meds per holding paramenters.
ECHO -11/2024-HFrEF with EF of 20 to 25%, global hypokinesis with septal akinesis, severe TR with PASP elevated to 63, moderate MR.
Daily weight check
Appreciate cards input
# ANTONIO, Creatinine is coming down to normal
# Hypokalemia, replaced
#Normocytic anemia-
Anemia of chronic disease
#Type 2 diabetes mellitus- Episodes of hypoglycemia, likely due to nausea and not reliable oral intake
Reducing Lantus due to low blood glucose
Holding AC insulin due to hypoglycemia, c/w ISS
#SLE-
Prior medications on admission, was on prednisone.
#Essential hypertension-
Continue with diuretic therapy if renal function stable. Continue with losartan, Toprol.
#Hyperlipidemia-
# h/o V fib arrest
- cont amiodarone
#Peripheral diabetic neuropathy-
#History of GERD-
IV PPI
#CAD with Recent CABG-
She denies chest pain.
Troponin negative X 2
- 08/2024
- cont Plavix.
#Anxiety/depression-
Continue citalopram 20 mg.
DVT prophylaxis-
Continue subcu hep
CODE STATUS-
Full code
Total time spent to see the patient, examine the patient, review data and lab result, discuss treatment plan with patient family, nursing staff around 55 minutes
Anticipated Discharge: > 48 hours
Subjective/Interval History
-
Date of Service: February 18, 2025
She feels better
No nausea
No chest pain
She wants to go home
Objective Data
-
Labs:
Laboratory Results
02/18/25
05:07
Total Bilirubin 0.6
AST 18
ALT 14
Alkaline Phosphatase 114
Vital Signs:
Vital Signs
Temp Pulse Resp BP Pulse Ox
97.3 F 76 14 96/45 92
02/18/25 07:36 02/18/25 07:36 02/18/25 07:36 02/18/25 07:36 02/18/25 07:36
I&O
02/17/25 02/18/25 02/19/25
06:59 06:59 06:59
Intake Total 480 / 480 960 / 960
Balance 480 / 480 960 / 960
[2025-02-18 11:21] VITALS: BP 115/69
[2025-02-18 12:40] LABS: Glucose - Point of Care 105 mg/dl (70-99)
--- NOTE | 2025-02-18 14:11 | W.PN.GI.CBS2 ---
Today's Communication / Plan
-
-- Agree with short course of Reglan before meals for 1 week
-- GI will sign off. Please call with questions
Assessment / Plan
-
Patient is a 64-year-old female with history of ischemic cardiomyopathy, severe tricuspid regurgitation, CAD status post CABG August 2024, CHF with an EF of 20%, insulin-dependent diabetes, peripheral vascular disease, diabetic neuropathy and
lupus, history of V-fib arrest status post ICD who has been seen by GI inpatient multiple times including most recently early January 2025 for weight loss and dysphagia now back with heart failure and foul-smelling wound.
# Acute onset intermittent nausea since with 2 episodes of vomiting-now resolved with no symptoms
Multiple etiologies for nausea in this patient including medication induced versus gastroparesis versus volume overload
--Unfortunately her medications are necessary -high incidence of nausea includes her amiodarone, antibiotics
--Her antibiotics have been changed
-- Cardiology is working on diuresis which can also help with nausea
-- To do a short course of Reglan. Her current QTc on 02/13/2025 was 400
-- PPI was started on 02/15/2025
-- LFTs today were normal-patient has significant tricuspid regurgitation which can cause backflow and congestive hepatopathy. Generally cholestatic picture
-- Reviewed ultrasound from 02/17/2025 with no significant findings to explain her nausea. Gallbladder is absent. Trace ascites in the upper abdomen likely secondary to backflow from her heart failure
# Left heel ulcerated wound due to DM & PAD
s/p arteriogram 02/16 showed significant PAD, not amenable to stent placement.
#ECHO -11/2024-HFrEF with EF of 20 to 25%, global hypokinesis with septal akinesis, severe TR with PASP elevated to 63, moderate MR.
# h/o V fib arrest
-On amiodarone
#Peripheral diabetic neuropathy-
#History of GERD-gastritis on EGD on PPI
#CAD with Recent CABG-
- 08/2024 on Plavix cont Plavix.
#Anxiety/depression-
Subjective
Subjective
Date of Service: February 18, 2025
Patient denies any further nausea or vomiting.
Objective
Data Reviewed
Laboratory Data:
Laboratory Results
02/17/25 04:42
02/17/25 04:42
Laboratory Results
Magnesium Cancelled 02/14/25 06:00
Total Bilirubin 0.6 mg/dl (0.2-1.3) 02/18/25 05:07
AST 18 U/L (14-36) 02/18/25 05:07
ALT 14 U/L (0-35) 02/18/25 05:07
Alkaline Phosphatase 114 U/L (38-126) 02/18/25 05:07
Vital Signs and I&O:
Vital Signs
Temp Pulse Resp BP Pulse Ox
98.1 F 77 18 115/69 94
02/18/25 11:21 02/18/25 11:21 02/18/25 11:21 02/18/25 11:21 02/18/25 11:55
I&O
02/17/25 02/18/25 02/19/25
06:59 06:59 06:59
Intake Total 480 / 480 960 / 960
Balance 480 / 480 960 / 960
Physical Exam
Physical Exam
HEENT: Anicteric
GI: Soft, Non Distended and Non Tender
--- NOTE | 2025-02-18 14:26 | W.PN.CARDCBS ---
Today's Communication / Plan
-
Continue IV diuretics and GDMT as blood pressure tolerates
Impression / Plan
-
Primary care provider: Keli Gonzalez MD
Primary absorption and adsorption engineer: Lan Estrada MD
Impression:
Admitted with LE edema and left heel wound 02/13/25
Recent admission for acute HF and dysphagia 01/20/2025 until 01/24/2025
Acute on chronic HFrEF
ICM EF 20 to 25% by echo 12/19/2024
Severe TR with PAP 63 mmHg
Chronic dysphagia, chronic abdominal pain
CAD s/p CABG with VILLAFUERTE to LAD, saphenous vein to diagonal, saphenous vein to obtuse marginal at [facility] 08/26/24
Postop VF arrest
Patent VILLAFUERTE to LAD, patent SVG to diagonal, patent SVG to OM by postop cardiac cath
s/p Martini [employer] SC ICD at [facility] 08/2024
h/o C. difficile postop CABG at [facility]
Anaphylactic aspirin allergy with previous mild allergic reaction during attempted aspirin desensitization therapy at [facility] 08/24/24
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
DM 2
Diabetic neuropathy
Lupus
Hypertension
Dyslipidemia
Echo 07/2024: tricuspid regurgitation increased from trace to severe and systolic pulmonary artery pressure previously was estimated at 25 to 30 mmHg and now is estimated at 63 mmHg.
Echo 12/09/24: finds severely reduced left ventricular systolic function with ejection fraction of 20-25%. Global hypokinesis with septal akinesis. Stage III diastolic dysfunction. Moderate mitral regurgitation, severe tricuspid regurgitation with
estimated pulmonary artery pressure of 63 mmHg.
Plan:
-Presented with LE edema. Admitted with acute HF exacerbation and L heel wound.
-Given a single dose of IV Lasix 02/14 and subsequently lasix was placed on hold in anticipation of angiogram 02/16.
-Underwent bilateral lower extremity arteriograms 02/16/2025. Plan is for OP follow up w/ vascular.
-Main complaint is nausea which may be in part related to gut edema from acute heart failure
-Continue IV lasix as BP tolerates
-Creatinine stable.
-Weight coming down, now 149lbs, but still 10 pounds higher than weights recorded during prior admission.
-Known cardiomyopathy with a EF of 20 to 25% by most recent echo 11/2024. No need to repeat this admission.
-Continues on Toprol and losartan.
-Spironolactone on hold with marginal BP
-Continue amiodarone 200 mg daily for history of VF arrest post CABG. Heart rate stable.
-Continue Plavix 75 mg daily. Patient cannot take aspirin due to history of anaphylaxis.
-Continue Lipitor 40 mg daily.
HPI: Patient came to [facility] ER today with increased LE edema and left heel wound and is now admitted for foot wound and acute HF, cardiology has been consulted. Patient previously admitted to [facility] 08/20/2024 until 08/26/2024 with NSTEMI and MV CAD.
Patient with previous anaphylactic allergy to aspirin and there was an attempt at aspirin desensitization starting on the night of 08/21/2024 and patient had swollen eyes and hand tremors so desensitization therapy was stopped and the family was not
interested in another attempt. It then came to light that the patient's family member is a senior floor care technician at [facility] and the family requested transfer which was performed on 08/26/2024. As noted above patient had CABG and postop suffered VF
arrest. Post CABG cardiac cath showed patent grafts and patient ultimately had an Martini [employer] ICD placed. [facility] were also right toe amputations that were performed all as part of her postop
course. Patient was just admitted to [facility] 01/20/2025 until 01/24/2025 with acute HFrEF and dysphagia, but GI workup was unrevealing in part because colonoscopy prep was inadequate. Left heel wound has been getting worse at home and patient is known
to the vascular surgery service, sounds like at some point she was supposed to get a peripheral angiogram that was delayed due to her last admission. Also, patient missed her cardiology visit on 02/07/2025 and called the next day to let us know that
she was gaining weight and at that time Dr. Estrada increased her Lasix to 80 mg BID, the patient denies any decrease in urine output and LE edema only worsened.
Progress Note - Sizing Sponger
Subjective
Date of Service: February 18, 2025
NAOE. Nausea is improving now on reglan.
Objective
Labs:
02/17/25 04:42
02/17/25 04:42
Labs
Hgb 10.3 g/dL (12.0-16.0) L 02/17/25 04:42
Hct 34.6 % (37.0-47.0) L 02/17/25 04:42
Plt Count 158 10^3/uL (130-400) 02/17/25 04:42
Sodium 144 mmol/L (135-145) 02/17/25 04:42
Potassium 4.4 mmol/L (3.5-5.1) 02/17/25 04:42
BUN 22 mg/dl (7-17) H 02/17/25 04:42
Creatinine 0.9 mg/dL (0.6-1.0) 02/17/25 04:42
Glucose 154 mg/dl (70-99) H 02/17/25 04:42
Troponins
02/15/25
16:44
Troponin I < 0.012
Vital Signs and I&O:
Vital Signs
Temp Pulse Resp BP Pulse Ox
98.1 F 77 18 115/69 94
02/18/25 11:21 02/18/25 11:21 02/18/25 11:21 02/18/25 11:02/18/25 11:55
Vital Signs
Temp Pulse Resp BP Pulse Ox
98.1 F 77 18 115/69 94
02/18/25 11:21 02/18/25 11:21 02/18/25 11:21 02/18/25 11:21 02/18/25 11:55
Intake & Output
02/16/25 02/17/25 02/18/25 02/19/25
06:59 06:59 06:59 06:59
Intake Total 1580 / 1580 480 / 480 960 / 960
Balance 1580 / 1580 480 / 480 960 / 960
Physical Exam
Physical Exam
Gen: NAD, AA
HEENT: NC/AT, sclera anicteric
Neck: No JVD
CV: RRR, NL s1/s2
Lungs: CTAB on RA
Abd: S/ND
Ext: RLE 1+ edema, LLE edema CDI with gauze
Skin: Warm, dry
Neuro: Non-focal
[2025-02-18 15:00] VITALS: BP 108/63
[2025-02-18] MEDS: COZAAR 12.5 MG PO (15:33)
[2025-02-18 17:06] LABS: Glucose - Point of Care 125 mg/dl (70-99)
[2025-02-18] MEDS: REGLAN IV (18:19)
[2025-02-18 19:00] VITALS: BP 114/56
[2025-02-18 21:39] LABS: Glucose - Point of Care 188 mg/dl (70-99)
[2025-02-18] MEDS: NEURONTIN 400 MG PO (21:53)
[2025-02-18 23:00] VITALS: BP 123/69
[2025-02-19] VITALS (7 sets, daily range): BP systolic 95–127; BP diastolic 48–67; BMI 27.0
[2025-02-19 05:26] LABS: Hematocrit 31.0 % (37.0-47.0); Hemoglobin 9.4 g/dL (12.0-16.0); Mean Corp Hgb Conc. 30.3 g/dL (33.0-37.0); Mean Corpuscular Volume 77.7 fL (81.0-99.0); Platelet Count 146 10^3/uL (130-400); Red Cell Dist. Width 18.1 % (11.5-14.5)
[2025-02-19 06:06] LABS: Blood Urea Nitrogen 20 mg/dl (7-17); Calcium 8.1 mg/dl (8.4-10.2); Carbon Dioxide 27 mmol/L (22-30); Chloride 108 mmol/L (98-107); Estimated Creatinine Clearance 47 ml/min; Glucose 134 mg/dl (70-99); Magnesium 2.2 mg/dl (1.6-2.3); Potassium 3.8 mmol/L (3.5-5.1); Sodium 141 mmol/L (135-145); eGFR > 60.00
[2025-02-19 08:14] LABS: Glucose - Point of Care 127 mg/dl (70-99)
[2025-02-19] MEDS: NOVOLOG FLEXPEN-MODERATE RESISTANCE SC (08:35)
[2025-02-19] MEDS: NSS (PRESERVATIVE FREE) IV (08:56)
[2025-02-19] MEDS: PROTONIX IV IV (08:56)
[2025-02-19] MEDS: TOPROL XL 25 MG PO (08:59)
[2025-02-19] MEDS: PLAVIX 75 MG PO (08:59)
[2025-02-19] MEDS: LIPITOR 40 MG PO (08:59)
[2025-02-19] MEDS: COZAAR 12.5 MG PO (09:00)
[2025-02-19] MEDS: REGLAN IV ×4 (09:01→15:43)
[2025-02-19] MEDS: PACERONE 200 MG PO (09:01)
[2025-02-19] MEDS: HEPARIN 5000 UNITS SC ×2 (09:01→19:14)
[2025-02-19] MEDS: PROTONIX 40 MG PO (09:01)
[2025-02-19] MEDS: LASIX 80 MG IV ×2 (09:02→15:32)
[2025-02-19] MEDS: DAKIN'S SOLUTION 0.125% 1/4 STRENGTH 10 ML TOPICAL (09:03)
--- NOTE | 2025-02-19 10:50 | W.PN.CARDCBS ---
Addendum entered and electronically signed by Roderick Dixon MD 02/19/25 11:21:
I saw and examined the patient.
The HEEL SHAPER or PA's note was reviewed and I agree with the note.
Comment: General: Well developed, well nourished in NAD.
Neck: Supple, no JVD, HJR, carotids +2 B/L, no bruits bilaterally.
Heart: Non displaced PMI, RRR, no murmurs, No S3, S4, no rubs.
Lungs: Scattered rhonchi at the bases
Extremities: No clubbing, cyanosis or edema bilaterally.
Neuro: Grossly nonfocal, awake, alert and oriented x3.
Discussed in detail with patient, daughter, granddaughter who is an RN. Will continue IV diuresis with 40 mg twice daily. Continue to follow renal function and daily weights. Weight is down 8 pounds but may have been on different scales. She
remains on 2 L of oxygen ideally would get her off oxygen and ambulating prior to discharge. Total visit time 51 minutes: More than half the time spent explaining diagnosis, prognosis, and treatment options
Original Note:
Today's Communication / Plan
-
Continue diuresis
Follow daily weights, renal function
Impression / Plan
-
Primary care provider: Keli Gonzalez MD
Primary incinerator plant laborer: Lan Estrada MD
Impression:
Admitted with LE edema and left heel wound 02/13/25
Recent admission for acute HF and dysphagia 01/20/2025 until 01/24/2025
Acute on chronic HFrEF
Nausea, improving
ICM EF 20 to 25% by echo 12/19/2024
Severe TR with PAP 63 mmHg
Chronic dysphagia, chronic abdominal pain
CAD s/p CABG with VILLAFUERTE to LAD, saphenous vein to diagonal, saphenous vein to obtuse marginal at [facility] 08/26/24
Postop VF arrest
Patent VILLAFUERTE to LAD, patent SVG to diagonal, patent SVG to OM by postop cardiac cath
s/p Martini [employer] Eric SC ICD at [facility] 08/2024
h/o C. difficile postop CABG at [facility]
Anaphylactic aspirin allergy with previous mild allergic reaction during attempted aspirin desensitization therapy at [facility] 08/24/24
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
DM 2
Diabetic neuropathy
Lupus
Hypertension
Dyslipidemia
Echo 07/2024: tricuspid regurgitation increased from trace to severe and systolic pulmonary artery pressure previously was estimated at 25 to 30 mmHg and now is estimated at 63 mmHg.
Echo 12/09/24: finds severely reduced left ventricular systolic function with ejection fraction of 20-25%. Global hypokinesis with septal akinesis. Stage III diastolic dysfunction. Moderate mitral regurgitation, severe tricuspid regurgitation with
estimated pulmonary artery pressure of 63 mmHg.
Plan:
-Presented with LE edema. Admitted with acute HF exacerbation and L heel wound.
-Diuresing with IV lasix 80mg BID. Weight up overnight if accurate to 152 lbs. Still appears volume overloaded
-SOB and nausea improving. Creat stable at 1.0.
-Continue to follow daily weights, I&Os.
-Underwent bilateral lower extremity arteriograms 02/16/2025. Plan is for OP follow up w/ vascular.
-Known cardiomyopathy with a EF of 20 to 25% by most recent echo 11/2024. No need to repeat this admission.
-Continues on Toprol and losartan. Spironolactone on hold with marginal BP
-Continue amiodarone 200 mg daily for history of VF arrest post CABG. Heart rate stable.
-Continue Plavix 75 mg daily. Patient cannot take aspirin due to history of anaphylaxis.
-Continue Lipitor 40 mg daily.
HPI: Patient came to [facility] ER today with increased LE edema and left heel wound and is now admitted for foot wound and acute HF, cardiology has been consulted. Patient previously admitted to [facility] 08/20/2024 until 08/26/2024 with NSTEMI and MV CAD.
Patient with previous anaphylactic allergy to aspirin and there was an attempt at aspirin desensitization starting on the night of 08/21/2024 and patient had swollen eyes and hand tremors so desensitization therapy was stopped and the family was not
interested in another attempt. It then came to light that the patient's family member is a senior cephalometric technician at [facility] and the family requested transfer which was performed on 08/26/2024. As noted above patient had CABG and postop suffered VF
arrest. Post CABG cardiac cath showed patent grafts and patient ultimately had an Martini Saint Eric ICD placed. Patient also had C. difficile postop in the [facility] there were also right toe amputations that were performed all as part of her postop
course. Patient was just admitted to [facility] 01/20/2025 until 01/24/2025 with acute HFrEF and dysphagia, but GI workup was unrevealing in part because colonoscopy prep was inadequate. Left heel wound has been getting worse at home and patient is known
to the vascular surgery service, sounds like at some point she was supposed to get a peripheral angiogram that was delayed due to her last admission. Also, patient missed her cardiology visit on 02/07/2025 and called the next day to let us know that
she was gaining weight and at that time Dr. Estrada increased her Lasix to 80 mg BID, the patient denies any decrease in urine output and LE edema only worsened.
Progress Note - Nurse Anesthesia Program Director
Subjective
Date of Service: February 19, 2025
Nausea and breathing improving.
Objective
Labs:
02/19/25 04:38
02/19/25 04:38
Labs
Hgb 9.4 g/dL (12.0-16.0) L 02/19/25 04:38
Hct 31.0 % (37.0-47.0) L 02/19/25 04:38
Plt Count 146 10^3/uL (130-400) 02/19/25 04:38
Sodium 141 mmol/L (135-145) 02/19/25 04:38
Potassium 3.8 mmol/L (3.5-5.1) 02/19/25 04:38
BUN 20 mg/dl (7-17) H 02/19/25 04:38
Creatinine 1.0 mg/dL (0.6-1.0) 02/19/25 04:38
Glucose 134 mg/dl (70-99) H 02/19/25 04:38
Vital Signs and I&O:
Vital Signs
Temp Pulse Resp BP Pulse Ox
98.3 F 74 20 110/66 99
02/19/25 08:08 02/19/25 08:08 02/19/25 08:08 02/19/25 09:02 02/19/25 08:08
Vital Signs
Temp Pulse Resp BP Pulse Ox
98.3 F 74 20 110/66 99
02/19/25 08:08 02/19/25 08:08 02/19/25 08:08 02/19/25 09:02 02/19/25 08:08
Intake & Output
02/17/25 02/18/25 02/19/25 02/20/25
06:59 06:59 06:59 06:59
Intake Total 480 / 480 960 / 960 480 / 480
Balance 480 / 480 960 / 960 480 / 480
Physical Exam
Physical Exam
GEN: No distress, awake, alert, oriented x3
HEENT: supple, anicteric, mmm
LUNGS: CTA b/l, no wheezes/rales
CV: Reg, S1/S2, no murmur
EXT: +1 LE edema, LLE dressing c/d/i
NEURO: Gross non-focal
SKIN: Warm, dry
[2025-02-19 11:50] LABS: Glucose - Point of Care 181 mg/dl (70-99)
[2025-02-19] MEDS: NOVOLOG FLEXPEN-MODERATE RESISTANCE 1 UNITS SC ×2 (12:11→16:44)
--- NOTE | 2025-02-19 12:12 | W.PN.ID1 ---
Date of Service
Date of Service: February 19, 2025
Today's Communication
DC abx and observe.
ID will sign off.
Assessment / Plan
# Dry ischemic/necrotic wounds left heel
# Severe PAD, not amenable to endovascular intervention
# DM
# CAD, ICM
- Angiogram - severe PAD.
- High risk Limflow failure to CHF.
- Augmentin currently on hold due to nausea.
- Antibiotic is futile at this point due to severe PAD.
Ischemic wounds are dry without signs of overt active infection.
DC abx and observe.
Suspect eventual BKA.
ID will sign off.
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
Diabetes mellitus
CAD status post CABG August 2024
Ischemic cardiomyopathy EF 20 to 25%
History of V fib arrest.
Hypertension
HLD
SLE on chronic prednisone and Plaquenil
History of C. difficile
PAD with left lower extremity small vessel occlusive disease not amenable to revascularization
Right third toe partial amputation due to osteomyelitis
Right great toe amputation
Right first metatarsal resection
Chief Complaint
-: Other (Wound infection)
Subjective / Review of Systems
No further nausea. Eating well.
Vital Signs / Physical Exam
Vital Signs
Vital Signs
Temp Pulse Resp BP Pulse Ox
97.8 F 77 18 127/57 97
02/19/25 11:43 02/19/25 11:43 02/19/25 11:43 02/19/25 11:43 02/19/25 11:43
Physical Exam
Constitutional: No Acute Distress and Comfortable
Gastrointestinal: Soft, Non Tender and Non Distended
Extremities: Negative Edema
Neurological: AO x 3
Objective Data
Lab Data
Lab Results
02/19/25 04:38
02/19/25 04:38
ESR 105 mm/hour (0-20) H 02/13/25 11:50
Estimated Creat Clear 47 ml/min 02/19/25 04:38
Lactic Acid Cancelled 02/13/25 18:15
Total Bilirubin 0.6 mg/dl (0.2-1.3) 02/18/25 05:07
AST 18 U/L (14-36) 02/18/25 05:07
ALT 14 U/L (0-35) 02/18/25 05:07
Alkaline Phosphatase 114 U/L (38-126) 02/18/25 05:07
C-Reactive Protein 13.70 mg/L (0.0-10.00) H 02/13/25 16:11
Most recent labs reviewed.
Micro Results:
02/13/25 16:11 Blood Culture - Final
Blood/Venous No Growth - Final Report
02/14/25 10:43 Wound Culture - Final
Heel - Left Enterococcus faecalis
Coagulase neg. staphylococcus
Gram Stain - Final
02/13/25 12:23 Urine Culture - Final
Urine
--- NOTE | 2025-02-19 12:30 | PTCARENOTE ---
Wound care performed by WOC RN. Pt refusing fiber filled boots, accepted air chair cushions under LE. CB in reach no change in physical assessment
--- NOTE | 2025-02-19 12:35 | WOUNDNOTE ---
JANET RN NOTE: Followed up today along with hospitalist at bedside. Patient sitting at side of bed, barely on, removed air overlay. Patient is on a Versa care air bed, no need for overlay. Patient used bedside commode, assisted patient with transfer.
Buttocks ulcers improved, Exuderm thin applied to both ulcers, and silicone foam to sacrum to protect. R heel ulcer dry and stable, foam changed. L heel worse, now with brown eschar along with savage slough and distally with dry savage eschar, hospitalist
aware. Odor under control with use of Dakin's. Reviewed vascular note, L leg not amenable to stent. Painted eschar with Betadine, ABD pad and Blanca applied. Patient refused TruVue lite offloading heel boots, agreed with air cushion on pillow under
calves to offload heels. Patient's appetite is good, able to turn self and lift own legs. Asked Hospitalist if patient seeing Sandwich And Drink Cart Operator along with vascular, states he will find out and recommend follow up as outpatient if deems necessary. Patient
will follow with Vascular upon discharge. Hospitalist approved changes in wound care and will follow as needed.
--- NOTE | 2025-02-19 13:01 | W.PN.HOSP.TC ---
Today's Communication/Plan
-
Continue with diuresis
Monitor p.o. intake
Continue with Reglan with short course
Monitor POC
Home med rec pending
Assessment / Plan
Assessment / Plan
Physical Exam
General: No Apparent Distress and Comfortable
HEENT: Moist mucous membranes and Atraumatic
Respiratory: much less rales (at bases ); No Wheezes
Cardiac: S1/S2 and Regular Rhythm
GI: Soft and Non Tender
Genito-urinary: No Cha
Musculoskeletal: No Clubbing, less edema in lower legs.
Skin: eft heel dressing.
Neuro: Alert, Oriented and Nonfocal/grossly intact; No Facial Droop or Tremors
Psych: Calm; No Agitated
64 female presented with worsening leg edema and left heel wound
# Nausea
Now on low dose Reglan AC and can taper in 1 week
Possible gastritis or Gastroparesis or congestive gastropathy
US did not hsow acute findings.
No fever or leukocytosis, she denies constipation or diarrhea, reports normal BM.
c/w IV PPI
IV ABx was changed to Unasyn the Augmentin. Can resume since able to take oral.
EGD 01/23/25 showed focal gastritis
/W GI, c/w PPI , trial of short course of Reglan.
# Left heel ulcerated wound due to DM & PAD
Patient and family decided to come to the hospital due to worsening wound with foul-smelling.
s/p IR for right central line placement.
s/p arteriogram 02/16 showed significant PAD, not amenable to stent placement.
Negative blood culture
Empiric antibiotic
Tylenol for pain
Appreciate ID & Vascular surgery help, f/u in office with Dr Harris.
# Acute on chronic heart failure with a preserved ejection fraction
Patient feels better, no sob or chest pain . No hypoxia. d/w cardiology , c/w IV high dose Lasix 80 mg BID as long as Bp tolerates. Holding other cardiac meds per holding paramenters.
ECHO -11/2024-HFrEF with EF of 20 to 25%, global hypokinesis with septal akinesis, severe TR with PASP elevated to 63, moderate MR.
Daily weight check IV Lasix. Requires invasive monitoring. Creatinine holding.
Appreciate cards input
# ANTONIO, Creatinine is coming down to normal
# Hypokalemia, replaced
#Normocytic anemia-
Anemia of chronic disease
#Type 2 diabetes mellitus- Episodes of hypoglycemia, likely due to nausea and not reliable oral intake
Reducing Lantus due to low blood glucose
Holding AC insulin due to hypoglycemia, c/w ISS
#SLE-
Prior medications on admission, was on prednisone.
#Essential hypertension-
Continue with diuretic therapy if renal function stable. Continue with losartan, Toprol.
#Hyperlipidemia-
# h/o V fib arrest
- cont amiodarone
#Peripheral diabetic neuropathy-
#History of GERD-
IV PPI
#CAD with Recent CABG-
She denies chest pain.
Troponin negative X 2
- 08/2024
- cont Plavix.
#Anxiety/depression-
Continue citalopram 20 mg.
DVT prophylaxis-
Continue subcu hep
CODE STATUS-
Full code
PT-Home VN. CM aware.
Discussed with patient daughter Erika over the phone in details for prolonged period of time.
HOME MED REC PENDING SO FAR
Anticipated Discharge: 24 - 48 hours
Subjective/Interval History
-
Date of Service: February 19, 2025
tolerating diet
Objective Data
-
Labs:
Laboratory Results
02/19/25
04:38
WBC 4.5 L
Hgb 9.4 L
Hct 31.0 L
Plt Count 146
Sodium 141
Potassium 3.8
Chloride 108 H
Carbon Dioxide 27
BUN 20 H
Creatinine 1.0
Glucose 134 H
Calcium 8.1 L
Vital Signs:
Vital Signs
Temp Pulse Resp BP Pulse Ox
97.8 F 77 18 127/57 97
02/19/25 11:43 02/19/25 11:43 02/19/25 11:43 02/19/25 11:43 02/19/25 11:43
I&O
02/18/25 02/19/25 02/20/25
06:59 06:59 06:59
Intake Total 960 / 960 480 / 480 480 / 480
Balance 960 / 960 480 / 480 480 / 480
Data Reviewed
-
Total Time Spent with Patient (in minutes): 55
--- NOTE | 2025-02-19 13:44 | PTCARENOTE ---
requested for accredited pharmacy technician to complete home med rec
[2025-02-19 16:30] LABS: Glucose - Point of Care 164 mg/dl (70-99)
--- NOTE | 2025-02-19 16:36 | PHANOTE ---
Addendum entered by Herman Brothers 02/20/25 19:25:
02/20/2025, spoke w/ pt.'s son and he confirmed a lot of pt.'s meds.; however, he did not know the frequency that pt. takes Citalopram, Potassium Chloride, Lantus insulin, Novolog insulin, and Hydroxychloroquine.
Original Note:
02/19/2025, attempted to call pt.'s daughter to confirm pt.'s meds. but was unsuccessful in reaching her. I used ecw records from 02/08/2025 and pharmacy records to compile a list of pt.'s meds.
[2025-02-19 21:39] LABS: Glucose - Point of Care 206 mg/dl (70-99)
[2025-02-20] VITALS (7 sets, daily range): BP systolic 91–124; BP diastolic 47–70; PULSE 71; O2SAT 88; BMI 27.5
[2025-02-20 08:11] LABS: Glucose - Point of Care 150 mg/dl (70-99)
[2025-02-20] MEDS: ZOFRAN 4 MG IV (09:29)
[2025-02-20] MEDS: FLUSH (NSS) 1 FLUSH IV (09:30)
[2025-02-20] MEDS: NOVOLOG FLEXPEN-MODERATE RESISTANCE 1 UNITS SC (09:46)
[2025-02-20] MEDS: REGLAN 5 MG IV ×3 (09:47→16:30)
[2025-02-20] MEDS: COZAAR 12.5 MG PO (09:48)
[2025-02-20] MEDS: LASIX 80 MG IV ×2 (09:50→16:31)
[2025-02-20] MEDS: HEPARIN 5000 UNITS SC ×2 (09:51→22:54)
[2025-02-20] MEDS: PROTONIX 40 MG PO (09:51)
[2025-02-20] MEDS: PACERONE 200 MG PO (09:51)
[2025-02-20] MEDS: PLAVIX 75 MG PO (09:52)
[2025-02-20] MEDS: LIPITOR 40 MG PO (09:52)
[2025-02-20] MEDS: TOPROL XL 25 MG PO (09:52)
[2025-02-20 10:18] LABS: Blood Urea Nitrogen 27 mg/dl (7-17); Calcium 7.8 mg/dl (8.4-10.2); Carbon Dioxide 28 mmol/L (22-30); Chloride 104 mmol/L (98-107); Estimated Creatinine Clearance 41 ml/min; Glucose 167 mg/dl (70-99); Magnesium 2.2 mg/dl (1.6-2.3); Potassium 5.2 mmol/L (3.5-5.1); Sodium 139 mmol/L (135-145); eGFR 45.92
--- NOTE | 2025-02-20 11:09 | W.PN.CARDCBS ---
Addendum entered and electronically signed by Rajendra Mello DO 02/20/25 14:53:
I saw and examined the patient.
The Grain Elevator Man's note was reviewed and I agree with the note.
Comment:
Plan:
Continue IV Lasix diuresis as weight is coming back up.
Creatinine had gone down with diuresis and is now trending back up slightly. Continue to monitor.
Will add metolazone 2.5 mg this afternoon. If creatinine continues to rise and there is no further diuresis, may need to consider right heart catheterization and possible nephrology evaluation.
Discussed with the patient and her daughter via telephone who helped translate.
Original Note:
Today's Communication / Plan
-
Will try a dose of metolazone 2.5 mg with this afternoon's dose of Lasix 80 mg IV BID
If not improvement in weight and/or if renal function worsens then consider RHC
Impression / Plan
-
Primary care provider: Keli Gonzalez MD
Primary homicide squad lieutenant: Lan Estrada MD
Impression:
Admitted with LE edema and left heel wound 02/13/25
Recent admission for acute HF and dysphagia 01/20/2025 until 01/24/2025
Acute on chronic HFrEF
Nausea, improving
ICM EF 20 to 25% by echo 12/19/2024
Severe TR with PAP 63 mmHg
Chronic dysphagia, chronic abdominal pain
CAD s/p CABG with VILLAFUERTE to LAD, saphenous vein to diagonal, saphenous vein to obtuse marginal at [facility] 08/26/24
Postop VF arrest
Patent VILLAFUERTE to LAD, patent SVG to diagonal, patent SVG to OM by postop cardiac cath
s/p Martini [employer] Eric SC ICD at [facility] 08/2024
h/o C. difficile postop CABG at [facility]
Anaphylactic aspirin allergy with previous mild allergic reaction during attempted aspirin desensitization therapy at [facility] 08/24/24
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
no options on peripheral angiogram 02/16/25, outpatient eval for Limflow procedure for known obliterative small vessel disease
DM 2
Diabetic neuropathy
Lupus
Hypertension
Dyslipidemia
Echo 07/2024: tricuspid regurgitation increased from trace to severe and systolic pulmonary artery pressure previously was estimated at 25 to 30 mmHg and now is estimated at 63 mmHg.
Echo 12/09/24: finds severely reduced left ventricular systolic function with ejection fraction of 20-25%. Global hypokinesis with septal akinesis. Stage III diastolic dysfunction. Moderate mitral regurgitation, severe tricuspid regurgitation with
estimated pulmonary artery pressure of 63 mmHg.
Plan:
-Weight is 155 lbs on 02/20/25 which is up 3 lbs from 02/19/25. TT to patient's RN asking them to recheck weight, appreciate help.
-Recent HF discharge weight was 140 lbs on 01/24/2025. Diuresing with Lasix 80 mg IV BID. Patient was taking Lasix 80 mg PO BID prior to admission
-Cre up to 1.3 on 02/20/25, labs reviewed by me. Will try a dose of metolazone 2.5 mg PO x1 just prior to the afternoon dose of Lasix 80 mg IV BID on 02/20/25. If weight remains elevated in AM then consider RHC.
-Patient with ICM, EF 20 to 25% by echo 12/09/2024, no need to repeat echo
-Outpatient dose of Toprol-XL 25 mg daily has been continued
-Outpatient dose of losartan decreased to 12.5 mg daily and will hold starting 02/20/25 and follow labs
-Patient was started on Jardiance [address] Estrada 10/2024, but this medication appears to have been stopped with her ongoing GI symptoms and is not currently ordered and she was not taking it prior to admission
-Outpatient dose of spironolactone 25 mg daily was continued initially, but then held for peripheral arteriogram 02/16/25 and has not been restarted. With ANTONIO seen on 02/20/25 will not restart yet
-Outpatient dose of amiodarone 200 mg daily has been continued for her post CABG VF arrest. No known history of atrial arrhythmia and patient is not chronically on OAC. QTc 400 ms by ECG 02/13/2025 reviewed by me on 02/20/2025
-Outpatient dose of Plavix 75 mg daily has been continued and this will presumably be long-term as patient cannot take aspirin due to history of anaphylactic allergy
-Patient continues with GI symptoms and had upper endoscopy 01/23/2025, but they did not find any obvious findings. Despite attempts at colonoscopy prep it was inadequate and colonoscopy was not attempted and she was recommended to follow-up as an
outpatient. New to [facility] this admission
HPI: Patient came to [facility] ER today with increased LE edema and left heel wound and is now admitted for foot wound and acute HF, cardiology has been consulted. Patient previously admitted to [facility] 08/20/2024 until 08/26/2024 with NSTEMI and MV CAD.
Patient with previous anaphylactic allergy to aspirin and there was an attempt at aspirin desensitization starting on the night of 08/21/2024 and patient had swollen eyes and hand tremors so desensitization therapy was stopped and the family was not
interested in another attempt. It then came to light that the patient's family member is a senior unit technician at [facility] and the family requested transfer which was performed on 08/26/2024. As noted above patient had CABG and postop suffered VF
arrest. Post CABG cardiac cath showed patent grafts and patient ultimately had an Martini [employer] Eric ICD placed. [facility] there were also right toe amputations that were performed all as part of her postop
course. Patient was just admitted to [facility] 01/20/2025 until 01/24/2025 with acute HFrEF and dysphagia, but GI workup was unrevealing in part because colonoscopy prep was inadequate. Left heel wound has been getting worse at home and patient is known
to the vascular surgery service, sounds like at some point she was supposed to get a peripheral angiogram that was delayed due to her last admission. Also, patient missed her cardiology visit on 02/07/2025 and called the next day to let us know that
she was gaining weight and at that time Dr. Estrada increased her Lasix to 80 mg BID, the patient denies any decrease in urine output and LE edema only worsened.
Progress Note - Corporate Financial Analyst
Subjective
Date of Service: February 20, 2025
Feet hurt
Objective
Labs:
02/19/25 04:38
02/20/25 09:29
Labs
Hgb 9.4 g/dL (12.0-16.0) L 02/19/25 04:38
Hct 31.0 % (37.0-47.0) L 02/19/25 04:38
Plt Count 146 10^3/uL (130-400) 02/19/25 04:38
Sodium 139 mmol/L (135-145) 02/20/25 09:29
Potassium 5.2 mmol/L (3.5-5.1) H D 02/20/25 09:29
BUN 27 mg/dl (7-17) H 02/20/25 09:29
Creatinine 1.3 mg/dL (0.6-1.0) H 02/20/25 09:29
Glucose 167 mg/dl (70-99) H 02/20/25 09:29
Vital Signs and I&O:
Vital Signs
Temp Pulse Resp BP Pulse Ox
98.3 F 79 18 117/59 97
02/20/25 08:24 02/20/25 08:24 02/20/25 08:24 02/20/25 08:24 02/20/25 08:24
Vital Signs
Temp Pulse Resp BP Pulse Ox
98.3 F 79 18 117/59 97
02/20/25 08:24 02/20/25 08:24 02/20/25 08:24 02/20/25 08:24 02/20/25 08:24
Intake & Output
02/18/25 02/19/25 02/20/25 02/21/25
06:59 06:59 06:59 06:59
Intake Total 960 / 960 480 / 480 2400 / 2400
Balance 960 / 960 480 / 480 2400 / 2400
Physical Exam
Physical Exam
GEN: NAD
HEENT: EOMI
LUNGS: RA. No audible wheeze
CV: SR on tele
--- NOTE | 2025-02-20 11:47 | W.PN.HOSP.TC ---
Today's Communication/Plan
-
IV lasix
diuresis
trend bmp
cards recs
Assessment / Plan
Assessment / Plan
Physical Exam
General: No Apparent Distress and Comfortable
HEENT: Moist mucous membranes and Atraumatic
Respiratory: much less rales (at bases ); No Wheezes
Cardiac: S1/S2 and Regular Rhythm
GI: Soft and Non Tender
Genito-urinary: No Cha
Musculoskeletal: No Clubbing remains with B/L LE pitting edema
Skin: eft heel dressing.
Neuro: Alert, Oriented and Nonfocal/grossly intact; No Facial Droop or Tremors
Psych: Calm; No Agitated
64 female presented with worsening leg edema and left heel wound
# Acute on chronic HFrEF
#Severe TR
c/w IV high dose Lasix 80 mg BID as long as Bp tolerates. Holding other cardiac meds per holding paramenters.
ECHO -11/2024-HFrEF with EF of 20 to 25%, global hypokinesis with septal akinesis, severe TR with PASP elevated to 63, moderate MR.
Daily weight
Cont with 80mg IV lasix bid. Requires invasive monitoring. Creatinine holding.
dose of zaroxyln later today
Appreciate cards input
# Nausea
Now on low dose Reglan AC and can taper in 1 week
Possible gastritis or Gastroparesis or congestive gastropathy
US did not hsow acute findings.
No fever or leukocytosis, she denies constipation or diarrhea, reports normal BM.
c/w IV PPI
IV ABx was changed to Unasyn the Augmentin. Can resume since able to take oral.
EGD 01/23/25 showed focal gastritis
/W GI, c/w PPI , trial of short course of Reglan.
# Left heel ulcerated wound due to DM & PAD
Patient and family decided to come to the hospital due to worsening wound with foul-smelling.
s/p IR for right central line placement.
s/p arteriogram 02/16 showed significant PAD, not amenable to stent placement.
Negative blood culture
Empiric antibiotic
Tylenol for pain
Appreciate ID & Vascular surgery help, f/u in office with Dr Harris.
# ANTONIO, Creatinine is coming down to normal
# Hypokalemia, replaced
#Normocytic anemia-
Anemia of chronic disease
#Type 2 diabetes mellitus-
Reducing Lantus due to low blood glucose
Holding AC insulin due to hypoglycemia, c/w ISS
#SLE-
Prior medications on admission, was on prednisone.
#Essential hypertension-
Continue with diuretic therapy if renal function stable. Continue with losartan, Toprol.
#Hyperlipidemia-
# h/o V fib arrest s/p ICD
- cont amiodarone
#Peripheral diabetic neuropathy-
#History of GERD-
IV PPI
#CAD with Recent CABG-
She denies chest pain.
Troponin negative X 2
- 08/2024
- cont Plavix.
#Anxiety/depression-
Continue citalopram 20 mg.
DVT prophylaxis-
Continue subcu hep
CODE STATUS-
Full code
PT-Home VN. CM aware.
Discussed with patient daughter Erika over the phone in details for prolonged period of time.
HOME MED REC PENDING SO FAR
Anticipated Discharge: > 48 hours
Subjective/Interval History
-
Date of Service: February 20, 2025
some nausea but tolerating diet
Objective Data
-
Labs:
Laboratory Results
02/20/25
09:29
Sodium 139
Potassium 5.2 H D
Chloride 104
Carbon Dioxide 28
BUN 27 H
Creatinine 1.3 H
Glucose 167 H
Calcium 7.8 L
Vital Signs:
Vital Signs
Temp Pulse Resp BP Pulse Ox
97.7 F 74 18 107/62 96
02/20/25 11:42 02/20/25 11:42 02/20/25 11:42 02/20/25 11:42 02/20/25 11:42
I&O
02/19/25 02/20/25 02/21/25
06:59 06:59 06:59
Intake Total 480 / 480 2400 / 2400
Balance 480 / 480 2400 / 2400
[2025-02-20 12:07] LABS: Glucose - Point of Care 202 mg/dl (70-99)
[2025-02-20] MEDS: NOVOLOG FLEXPEN-MODERATE RESISTANCE 3 UNITS SC (12:30)
[2025-02-20] MEDS: DAKIN'S SOLUTION 0.125% 1/4 STRENGTH 10 ML TOPICAL (12:31)
--- NOTE | 2025-02-20 13:53 | CM ---
Chart reviewed and patient is for discharge to home with [facility] when stable.
Plan; Home with [facility] when stable.
[2025-02-20] MEDS: ZAROXOLYN 2.5 MG PO (16:42)
[2025-02-20 16:54] LABS: Glucose - Point of Care 331 mg/dl (70-99)
[2025-02-20] MEDS: NOVOLOG FLEXPEN-MODERATE RESISTANCE 7 UNITS SC (17:15)
[2025-02-20 22:21] LABS: Glucose - Point of Care 213 mg/dl (70-99)
[2025-02-21] VITALS (37 sets, daily range): BP systolic 87–145; BP diastolic 35–105; BMI 27.7
[2025-02-21 05:19] LABS: Blood Urea Nitrogen 32 mg/dl (7-17); Calcium 7.7 mg/dl (8.4-10.2); Carbon Dioxide 25 mmol/L (22-30); Chloride 101 mmol/L (98-107); Estimated Creatinine Clearance 33 ml/min; Glucose 195 mg/dl (70-99); Potassium 5.5 mmol/L (3.5-5.1); Sodium 134 mmol/L (135-145); eGFR 35.79
[2025-02-21] MEDS: LOKELMA 5 GRAM PO (06:10)
[2025-02-21 07:14] LABS: Glucose - Point of Care 172 mg/dl (70-99)
[2025-02-21] MEDS: NOVOLOG FLEXPEN-MODERATE RESISTANCE 1 UNITS SC ×2 (09:05→17:56)
[2025-02-21] MEDS: REGLAN 5 MG IV ×2 (09:06→17:54)
[2025-02-21] MEDS: PROTONIX 40 MG PO (09:17)
[2025-02-21] MEDS: TOPROL XL 25 MG PO (09:17)
[2025-02-21] MEDS: PLAVIX 75 MG PO (09:17)
[2025-02-21] MEDS: LIPITOR 40 MG PO (09:18)
[2025-02-21] MEDS: DAKIN'S SOLUTION 0.125% 1/4 STRENGTH 10 ML TOPICAL (09:18)
[2025-02-21] MEDS: HEPARIN 5000 UNITS SC ×2 (09:18→20:32)
[2025-02-21] MEDS: PACERONE 200 MG PO (09:19)
--- NOTE | 2025-02-21 09:36 | W.PN.CARDCBS ---
Addendum entered and electronically signed by Donita Herbert DO 02/21/25 22:58:
I saw and examined the patient.
The [employer] Supervisor's note was reviewed and I agree with the note.
Comment: Patient was seen and examined, chart reviewed. Discussed right heart catheterization plan addressed risks/benefits and answered all questions with nursing at bedside as well as with daughter Erika over the telephone who provided
translation.Following regular catheterization reviewed findings with interventional cardiology. Patient volume overloaded with increased filling pressures and evidence of cardiogenic shock. Patient will be transferred to ICU and started on
milrinone prior to further attempts at diuresis.Pending response may need to consider transfer to [facility]
Prognosis guarded
Original Note:
Today's Communication / Plan
-
Talked with patient and daughter, Erika, using patient's phone and they are agreeable to RHC today
Will consult nephrology after RHC
Impression / Plan
-
Primary care provider: Keli Gonzalez MD
Primary weatherization installer: Lan Estrada MD
Impression:
Admitted with LE edema and left heel wound 02/13/25
Recent admission for acute HF and dysphagia 01/20/2025 until 01/24/2025
Acute on chronic HFrEF
Nausea, improving
ICM EF 20 to 25% by echo 12/19/2024
Severe TR with PAP 63 mmHg
Chronic dysphagia, chronic abdominal pain
CAD s/p CABG with VILLAFUERTE to LAD, saphenous vein to diagonal, saphenous vein to obtuse marginal at [place] 08/26/24
Postop VF arrest
Patent VILLAFUERTE to LAD, patent SVG to diagonal, patent SVG to OM by postop cardiac cath
s/p Martini [employer] Eric SC ICD at [facility] 08/2024
h/o C. difficile postop CABG at [place]
Anaphylactic aspirin allergy with previous mild allergic reaction during attempted aspirin desensitization therapy at [facility] 08/24/24
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
no options on peripheral angiogram 02/16/25, outpatient eval for Limflow procedure for known obliterative small vessel disease
DM 2
Diabetic neuropathy
Lupus
Hypertension
Dyslipidemia
Echo 07/2024: tricuspid regurgitation increased from trace to severe and systolic pulmonary artery pressure previously was estimated at 25 to 30 mmHg and now is estimated at 63 mmHg.
Echo 12/09/24: finds severely reduced left ventricular systolic function with ejection fraction of 20-25%. Global hypokinesis with septal akinesis. Stage III diastolic dysfunction. Moderate mitral regurgitation, severe tricuspid regurgitation with
estimated pulmonary artery pressure of 63 mmHg.
Plan:
-Weight is up to 156 lbs on 02/21/25 despite metolazone 2.5 mg and Lasix 80 mg IV 02/20/25 PM. Dry weight was 140 lbs on 01/24/25. Cre up to 1.6 on labs reviewed by tx 02/21/25. Talked with patient and her daughter, Erika, by phone for 8 minutes on
02/21/25 and we reviewed the situation and they are agreeable to RHC 02/21/25 to determine volume status.
-Patient was taking Lasix 80 mg PO BID prior to admission
-Will ask nephrology to see after RHC, consult placed and learning consultant TT by tx 02/21/25
-Patient with ICM, EF 20 to 25% by echo 12/09/2024, no need to repeat echo
-Outpatient dose of Toprol-XL 25 mg daily has been continued
-Outpatient dose of losartan decreased to 12.5 mg daily and will hold starting 02/20/25 and follow labs
-Patient was started on Jardiance [address] Estrada 10/2024, but this medication appears to have been stopped with her ongoing GI symptoms and is not currently ordered and she was not taking it prior to admission
-Outpatient dose of spironolactone 25 mg daily was continued initially, but then held for peripheral arteriogram 02/16/25 and has not been restarted. With ANTONIO seen on 02/20/25 will not restart yet
-Outpatient dose of amiodarone 200 mg daily has been continued for her post CABG VF arrest. No known history of atrial arrhythmia and patient is not chronically on OAC. QTc 400 ms by ECG 02/13/2025 reviewed by me on 02/20/2025
-Outpatient dose of Plavix 75 mg daily has been continued and this will presumably be long-term as patient cannot take aspirin due to history of anaphylactic allergy
-Patient continues with GI symptoms and had upper endoscopy 01/23/2025, but they did not find any obvious findings. Despite attempts at colonoscopy prep it was inadequate and colonoscopy was not attempted and she was recommended to follow-up as an
outpatient. New to [facility] this admission and she ate 100% of her breakfast 02/21/25
HPI: Patient came to [facility] ER today with increased LE edema and left heel wound and is now admitted for foot wound and acute HF, cardiology has been consulted. Patient previously admitted to [facility] 08/20/2024 until 08/26/2024 with NSTEMI and MV CAD.
Patient with previous anaphylactic allergy to aspirin and there was an attempt at aspirin desensitization starting on the night of 08/21/2024 and patient had swollen eyes and hand tremors so desensitization therapy was stopped and the family was not
interested in another attempt. It then came to light that the patient's family member is a senior heat treat technician at [place] and the family requested transfer which was performed on 08/26/2024. As noted above patient had CABG and postop suffered VF
arrest. Post CABG cardiac cath showed patent grafts and patient ultimately had an Martini [employer] Eric ICD placed. [facility] also right toe amputations that were performed all as part of her postop
course. Patient was just admitted to [facility] 01/20/2025 until 01/24/2025 with acute HFrEF and dysphagia, but GI workup was unrevealing in part because colonoscopy prep was inadequate. Left heel wound has been getting worse at home and patient is known
to the vascular surgery service, sounds like at some point she was supposed to get a peripheral angiogram that was delayed due to her last admission. Also, patient missed her cardiology visit on 02/07/2025 and called the next day to let us know that
she was gaining weight and at that time Dr. Estrada increased her Lasix to 80 mg BID, the patient denies any decrease in urine output and LE edema only worsened.
Progress Note - Engineering Coordinator
Subjective
Date of Service: February 21, 2025
No chest pain
Objective
Labs:
02/19/25 04:38
Labs
Hgb 9.4 g/dL (12.0-16.0) L 02/19/25 04:38
Hct 31.0 % (37.0-47.0) L 02/19/25 04:38
Plt Count 146 10^3/uL (130-400) 02/19/25 04:38
Sodium 134 mmol/L (135-145) L 02/21/25 04:29
Potassium 5.5 mmol/L (3.5-5.1) H 02/21/25 04:29
BUN 32 mg/dl (7-17) H 02/21/25 04:29
Creatinine 1.6 mg/dL (0.6-1.0) H 02/21/25 04:29
Glucose 195 mg/dl (70-99) H 02/21/25 04:29
Vital Signs and I&O:
Vital Signs
Temp Pulse Resp BP Pulse Ox
97.7 F 64 18 112/62 94
02/21/25 07:00 02/21/25 07:00 02/21/25 07:00 02/21/25 07:00 02/21/25 07:00
Vital Signs
Temp Pulse Resp BP Pulse Ox
97.7 F 64 18 112/62 94
02/21/25 07:00 02/21/25 07:00 02/21/25 07:00 02/21/25 07:00 02/21/25 07:00
Intake & Output
02/19/25 02/20/25 02/21/25 02/22/25
06:59 06:59 06:59 06:59
Intake Total 480 / 480 2400 / 2400 480 / 480 720 / 720
Balance 480 / 480 2400 / 2400 480 / 480 720 / 720
Physical Exam
Physical Exam
GEN: NAD
HEENT: EOMI
LUNGS: RA. No audible wheeze
CV: SR on tele
--- NOTE | 2025-02-21 11:02 | CM ---
Home with [facility] when stable.
Plan; Home with [facility]
[2025-02-21 11:18] LABS: Blood Urea Nitrogen 34 mg/dl (7-17); Calcium 8.0 mg/dl (8.4-10.2); Carbon Dioxide 25 mmol/L (22-30); Chloride 101 mmol/L (98-107); Estimated Creatinine Clearance 34 ml/min; Glucose 208 mg/dl (70-99); Potassium 5.4 mmol/L (3.5-5.1); Sodium 135 mmol/L (135-145); eGFR 35.79
--- NOTE | 2025-02-21 11:39 | ITS.CL.CATH ---
Dray Driver - Catheterization
Cardiac Catheterization
Procedure Report:
RIGHT HEART CATHETERIZATION
Date of Procedure: February 21, 2025
Referring: Dr. Lan Estrada
INDICATION: Progressive renal insufficiency with diuresis
Hemodynamics (mmHg):
RA (m) : 34
RV (s/d,m) : 64/18, 31
PA (s/d, m) : 68/29, 44
PCWP (m) : 43
Noninvasive BP: 141/70, 96
Cardiac Output : 1.94 L/min and Cardiac Index : 1.11 L/min/m-2
Systemic vascular resistance: 31 Wood units or 2480 [id number](-5)
Pulmonary vascular resistance: Not accurate PCWP
RADIATION SUMMARY: Fluoro Time (min): 11.7, Dose (mGy): 162, DAP (Gy.cm2) : 21.3
CONCLUSION:
1. Severely reduced cardiac output and index
2. Elevated right and left ventricular filling pressures.
Copy to: Dr. Lan Estrada
--- NOTE | 2025-02-21 11:57 | PTCARENOTE ---
Pt seen by cardiology this am, for Right heart cath today. B/L heel dressings changed . Pt refuses fiber filled boots and static overlay on bed. Noncompliant with suggestions . Report given to laborer salvage.
--- NOTE | 2025-02-21 12:32 | W.PN.HOSP.TC ---
Today's Communication/Plan
-
Transfer to ICU
Milrinone infusion
Monitor urinary output
Nephrology input
Monitor creatinine closely
Losartan/metoprolol held for now
Assessment / Plan
Assessment / Plan
Physical Exam
General: No Apparent Distress and Comfortable
HEENT: Moist mucous membranes and Atraumatic
Respiratory: much less rales (at bases ); No Wheezes
Cardiac: S1/S2 and Regular Rhythm
GI: Soft and Non Tender
Genito-urinary: No Cha
Musculoskeletal: No Clubbing remains with B/L LE pitting edema
Skin: Left heel dressing
Neuro: Alert, Oriented and Nonfocal/grossly intact; No Facial Droop or Tremors
Psych: Calm;
64 female presented with worsening leg edema and left heel wound
# Acute on severe chronic HFrEF ? Shock cardiogenic
#Severe TR
ECHO -11/2024-HFrEF with EF of 20 to 25%, global hypokinesis with septal akinesis, severe TR with PASP elevated to 63, moderate MR.
Daily weight. Strict I &O
Patient with worsening renal failure and not much improvement in weight
Underwent right heart catheterization which showed severely reduced cardiac output and index. Elevated right and left ventricular filling pressure
Wedge pressure 43.
Cardiac index severely reduced 1.11.
Discussed with interventional cardiology.
Plans to continue with [place] catheter
Milrinone drip was started
Hold losartan. Lasix on hold. Metoprolol on hold.
Diuresis per nephrology
Monitor in ICU
Appreciate cards input
# Acute kidney injury likely suspected due to cardiorenal syndrome
#Mild hyperkalemia possibly due to losartan in the setting of elevated creatinine
Creatinine continues to uptrend
Received dose of Zaroxolyn 02/20/2025
Status post right heart catheterization as above
Losartan held for now
Nephrology input
# Nausea
Now on low dose Reglan AC and can taper in 1 week
Possible gastritis or Gastroparesis or congestive gastropathy
US did not hsow acute findings.
No fever or leukocytosis, she denies constipation or diarrhea, reports normal BM.
c/w IV PPI
off augmentin.
EGD 01/23/25 showed focal gastritis
c/w PPI , trial of short course of Reglan.
# Left heel ulcerated wound due to DM & PAD
Patient and family decided to come to the hospital due to worsening wound with foul-smelling.
s/p IR for right central line placement.
s/p arteriogram 02/16 showed significant PAD, not amenable to stent placement.
Negative blood culture
Empiric antibiotic
Tylenol for pain
Appreciate ID & Vascular surgery help, f/u in office with Dr Harris.
# Hypokalemia, replaced
#Normocytic anemia-
Anemia of chronic disease
#Type 2 diabetes mellitus-
Reducing Lantus due to low blood glucose
Holding AC insulin due to hypoglycemia, c/w ISS
POC 172 am
#SLE-
Prior medications on admission, was on prednisone.
#Essential hypertension-
Monitor for now as with elevated creatinine.
#Hyperlipidemia-
# h/o V fib arrest s/p ICD
- cont amiodarone
#Peripheral diabetic neuropathy-
#History of GERD-
IV PPI
#CAD with Recent CABG-
She denies chest pain.
Troponin negative X 2
- 08/2024
- cont Plavix.
#Anxiety/depression-
Continue citalopram 20 mg.
DVT prophylaxis-
Continue subcu hep
CODE STATUS-
Full code
PT-Home VN. CM aware.
Discussed with interventional cardiology
Anticipated Discharge: > 48 hours
Subjective/Interval History
-
Date of Service: February 21, 2025
remains volume overload
Objective Data
-
Labs:
Laboratory Results
02/21/25 02/21/25
04:29 09:54
Sodium 134 L 135
Potassium 5.5 H 5.4 H
Chloride 101 101
Carbon Dioxide 25 25
BUN 32 H 34 H
Creatinine 1.6 H 1.6 H
Glucose 195 H 208 H
Calcium 7.7 L 8.0 L
Vital Signs:
Vital Signs
Temp Pulse Resp BP Pulse Ox
97.7 F 64 18 112/62 94
02/21/25 07:00 02/21/25 07:00 02/21/25 07:00 02/21/25 07:00 02/21/25 07:00
I&O
02/20/25 02/21/25 02/22/25
06:59 06:59 06:59
Intake Total 2400 / 2400 480 / 480 720 / 720
Balance 2400 / 2400 480 / 480 720 / 720
Data Reviewed
-
Total Time Spent with Patient (in minutes): 55
--- NOTE | 2025-02-21 12:49 | CON.INTV ---
Consultation
Consultation Request
Date/Time Consultation Requested: 02/21/2025- PM
Date/Time Consultation Performed: 02/21/2025- PM
Requesting Provider: Dr. Culp
Performing Provider: Dr. Allen
Reason for Consultation: critical care management
Medical History
-
Chief Complaint: shortness of breath
History of Present Illness:
64-year-old former smoking female with a history of hypertension, hyperlipidemia, CAD, diabetes, asthma, PAD, C. difficile and CHF who presented with leg edema and a left heel wound noted to have acute on top of chronic heart failure and underwent
cardiac catheterization which revealed significantly elevated pressures and transferred to ICU for milrinone drip, PA catheter and critical care monitoring-program director/traffic director consulted for CHF/critical care management 02/21/2025. Patient has complained of
some shortness of breath as well as well as worsening lower extremity edema and weight gain. She was on Lasix and Aldactone at home. Her last echocardiogram revealed an EF of 20-25% as well as some pulmonary hypertension.
Past Medical History
Past Medical History: None ( Hypertension. Hyperlipidemia. CAD/CABG. Heart failure reduced EF 20%. Lupus. PAD. Asthma. CABG 08/2024-[facility]. Cholecystectomy. Right toe amputation 08/2024.)
Social History
Tobacco: Former Smoker
Alcohol: None
Drug: None
Personal:
Living: With Family
Occupational Exposures: No known asbestos exposure
Environmental Exposures: no known tuberculosis exposure
Family History
Family History: Reviewed & Not Pertinent
Allergies / Home Medications
Allergies
Allergy/AdvReac Type Severity Reaction Status Date / Time
aspirin Allergy Anaphylaxis Verified 02/08/25 13:56
/rash
Home Medications
�Medication �Instructions �Recorded �Confirmed �Last Taken �Type
amiodarone 200 mg tablet 200 mg PO QPM Arrhythmia 01/20/25 02/20/25 Unknown History
atorvastatin 40 mg tablet 40 mg PO DAILY High Cholesterol 01/20/25 02/20/25 Unknown History
citalopram 20 mg tablet 20 mg PO .SEE BELOW Mental 01/20/25 02/20/25 Unknown History
Health/Anxiety
clopidogrel 75 mg tablet 75 mg PO QPM Blood Clot 01/20/25 02/20/25 Unknown History
Prevention/Tx
furosemide 40 mg tablet 40 mg PO BID Heart Failure 02/13/25 02/20/25 Unknown History
insulin aspart U-100 100 unit/mL 0 sliding scale dose SC AC Diabetes 02/13/25 02/20/25 Unknown History
subcutaneous solution
insulin glargine 100 unit/mL 0 unit SC HS Diabetes 02/13/25 02/20/25 Unknown History
subcutaneous solution (Lantus
U-100 Insulin)
losartan 25 mg tablet 25 mg PO DAILY Blood Pressure 02/13/25 02/20/25 Unknown History
famotidine 40 mg tablet 40 mg PO NOON 02/19/25 02/20/25 Unknown History
clonazepam 1 mg tablet 1 mg PO BID 02/20/25 02/20/25 Unknown History
gabapentin 800 mg tablet 800 mg PO QPMPRN PRN mild pain 02/20/25 02/20/25 Unknown History
hydroxychloroquine 200 mg tablet 200 mg PO .SEE BELOW 02/20/25 02/20/25 Unknown History
hydroxyzine pamoate 25 mg capsule 25 mg PO BID PRN anxiety 02/20/25 02/20/25 Unknown History
potassium chloride 10 mEq 10 meq PO .SEE BELOW 02/20/25 02/20/25 Unknown History
tablet,extended release(part/cryst)
spironolactone 25 mg tablet 12.5 mg PO NOON 02/20/25 02/20/25 Unknown History
Review of Systems
-
Unable to Obtain full review of systems at this time due to: Other ( per HPI)
Vitals / Labs / Diagnostic Testing
Vital Signs
Temp Pulse Resp BP Pulse Ox
98.9 F 64 18 112/62 94
02/21/25 12:44 07/02/25 07:00 02/21/25 07:00 02/21/25 07:00 02/21/25 07:00
Lab Data
02/19/25 04:38
02/21/25 09:54
Microbiology
02/13/25 16:11 Blood/Venous Blood Culture - Final
No Growth - Final Report
Diagnostic Testing:
Physical Exam
-
Exam:
Well nourished and well-developed in no apparent distress
HEENT-atraumatic, normocephalic
Neck-supple, no JVD, no bruit
Heart-regular rate and rhythm-no murmurs, rubs or gallops
Chest with diminished breath sounds, tight wheezing, rare crackles
Abdomen-soft, nontender, nondistended, no hepatosplenomegaly
Extremities-no cyanosis, clubbing, edema and good peripheral pulses
Integument-intact, no rashes, lesions or ecchymosis
Neurology-alert and oriented, nonfocal motor and sensory exam
Assessment
-
64-year-old former smoking female with a history of hypertension, hyperlipidemia, CAD, diabetes, asthma, PAD, C. difficile and CHF who presented with leg edema and a left heel wound noted to have acute on top of chronic heart failure and underwent
cardiac catheterization which revealed significantly elevated pressures and transferred to ICU for milrinone drip, PA catheter and critical care monitoring-program director/traffic director consulted for CHF/critical care management 02/21/2025.
CHF-reduced EF
Status post cardiac right heart catheterization 02/21/2025
ANTONIO
Nausea
Left heel ulcerated wound due to diabetes and PAD
Hypokalemia
Anemia-normocytic
Hyperglycemia
Hypocalcemia
Conditions present prior to admission:
Hypertension.
Hyperlipidemia.
Diabetes
Diabetic neuropathy
CAD/CABG-08/2024-[facility]
Heart failure reduced -ischemic cardiomyopathy-EF 20%.
History of V-fib arrest status post ICD
Lupus.
PAD.
Asthma.
CABG 08/2024-[facility]. Cholecystectomy. Right toe amputation 08/2024.
Plan
Patient critically ill with significant elevated right and left heart pressures requiring milrinone drip and diuresis in the ICU
Supplemental oxygen as needed
Aspiration precautions
Nebulizers as needed-history of asthma-suspect wheezing on exam is 'cardiac wheezing'
Cardiology following-correspondence reviewed
Right heart catheterization summarized below-significantly elevated right and left sided pressures
Diuresis as tolerated
Milrinone drip
Amiodarone 200 mg daily continues
Metoprolol continues
Acute kidney injury noted
Nephrology evaluation-correspondence reviewed
No indication for hemodialysis at this point-would be a poor candidate
Monitor blood sugar
Insulin supplementation as needed
Replace electrolytes
Monitor hemoglobin
Transfuse if needed
DVT prophylaxis-on heparin
GI prophylaxis-pantoprazole
Early nutrition
Early mobilization
Critical care statement: A total of 65 minutes of critical care time was provided for this patient today. This includes management of unstable vital signs, evaluation of the patient at bedside, reviewing the patient's pertinent medical records
including radiographs, Pulmonary artery catheter monitoring,microbiology, laboratory evaluations, and discussion with primary team, consultants, pharmacy, nutrition, physical therapy, case management, charge nurse, critical care nursing, and
respiratory therapy.
Diagnostic data:
Chest x-ray 07/03/2023-mildly elevated right hemidiaphragm
Chest x-ray 01/20/2025- new and progressive left lower lobe pneumonia
Chest x-ray 02/09/2025-stable, linear densities both lung bases likely representing scarring
CT chest abdomen and pelvis 08/20/2024-small bilateral pleural effusions, left thyroid lobe nodule measuring 1.[address] chest 08/21/2024-nodule left lobe thyroid gland measuring 2.1 cm, cardiomegaly, fatty infiltration of liver
Right heart catheterization 201902/21/2025-RA 34, RV 60/18-mean 31, PA 68/29-mean 44, PCWP-43, cardiac output 1.9, cardiac index 1.1, SVR 2480
Data Reviewed
-
EKG: Report reviewed by me
Radiology: Image personally visualized and interpreted and Report reviewed by me
CT Scan: Report reviewed by me
Medical Tests (Nuc Med, Echo etc): Report reviewed by me
Labs: Labs reviewed by me
Old Records: Reviewed
Critical Care Time (in minutes): 65
[2025-02-21] MEDS: NOVOLOG FLEXPEN-MODERATE RESISTANCE SC (13:00)
[2025-02-21] MEDS: PRIMACOR 20 MG 100 IV (13:10)
[2025-02-21 13:17] LABS: Glucose - Point of Care 93 mg/dl (70-99)
[2025-02-21 13:21] LABS: Hematocrit 34.1 % (37.0-47.0); Hemoglobin 10.3 g/dL (12.0-16.0); Mean Corp Hgb Conc. 30.2 g/dL (33.0-37.0); Mean Corpuscular Volume 76.5 fL (81.0-99.0); Platelet Count 146 10^3/uL (130-400); Red Cell Dist. Width 18.3 % (11.5-14.5)
--- NOTE | 2025-02-21 13:24 | W.CON.NEPH ---
Consultation
-
Date/Time Consultation Requested: February 21, 2025 at 1 PM
Date/Time Consultation Performed: February 21, 2025 at 1:30 PM
Requesting Provider: Dr. Stack
Performing Provider: Dr. Hayes
Reason for Consultation: Acute kidney injury
Medical History
-
Chief Complaint: Kidney injury
History of Present Illness:
64-year-old female with history of ischemic cardiomyopathy, severe tricuspid regurgitation, CAD status post CABG August 2024, CHF with an EF of 20%, insulin-dependent diabetes, peripheral vascular disease, diabetic neuropathy and lupus, history of
V-fib arrest status post ICD . She has been hospitalized multiple times this year for CABG, pneumonia, toe amputation, abdominal pain, dysphagia and 60 pound weight loss over 6 months since her surgery. She has been admitted since February 13 and
underwent lower extremity angiogram for significant PAD and wound.
Underwent right heart catheterization today showed severely reduced cardiac output and index with elevated right and left ventricular filling pressures significant volume overload.
Renal was consulted for acute kidney injury with a creatinine of 1.6
Past Medical History
Ischemic cardiomyopathy, severe tricuspid regurgitation, CAD status post CABG August 2024, CHF with an EF of 20%, insulin-dependent diabetes, peripheral vascular disease, diabetic neuropathy and lupus, history of V-fib arrest status post ICD
Social History
Tobacco: Non-Smoker
Alcohol: None
Family History
Family History: Not Pertinent
Allergies / Home Medications
Allergy/AdvReac Type Severity Reaction Status Date / Time
aspirin Allergy Anaphylaxis Verified 02/08/25 13:56
/rash
�Medication �Instructions �Recorded �Confirmed �Type
amiodarone 200 mg tablet 200 mg PO QPM Arrhythmia 01/20/25 02/20/25 History
atorvastatin 40 mg tablet 40 mg PO DAILY High Cholesterol 01/20/25 02/20/25 History
citalopram 20 mg tablet 20 mg PO .SEE BELOW Mental 01/20/25 02/20/25 History
Health/Anxiety
clopidogrel 75 mg tablet 75 mg PO QPM Blood Clot 01/20/25 02/20/25 History
Prevention/Tx
furosemide 40 mg tablet 40 mg PO BID Heart Failure 02/13/25 02/20/25 History
insulin aspart U-100 100 unit/mL 0 sliding scale dose SC AC Diabetes 02/13/25 02/20/25 History
subcutaneous solution
insulin glargine 100 unit/mL 0 unit SC HS Diabetes 02/13/25 02/20/25 History
subcutaneous solution (Lantus
U-100 Insulin)
losartan 25 mg tablet 25 mg PO DAILY Blood Pressure 02/13/25 02/20/25 History
famotidine 40 mg tablet 40 mg PO NOON Gastrointestinal 02/19/25 02/20/25 History
Issue
clonazepam 1 mg tablet 1 mg PO BID Mental Health/Anxiety 02/20/25 02/20/25 History
gabapentin 800 mg tablet 800 mg PO QPMPRN PRN mild pain 02/20/25 02/20/25 History
hydroxychloroquine 200 mg tablet 200 mg PO .SEE BELOW Lupus 02/20/25 02/20/25 History
hydroxyzine pamoate 25 mg capsule 25 mg PO BID PRN anxiety 02/20/25 02/20/25 History
potassium chloride 10 mEq 10 meq PO .SEE BELOW 02/20/25 02/20/25 History
tablet,extended release(part/cryst) Supplement
spironolactone 25 mg tablet 12.5 mg PO NOON Heart Failure 02/20/25 02/20/25 History
Review of Systems
-
No chest pain or shortness of breath, positive lower extremity edema
All other systems: Negative unless noted
Physical Exam
Vital Signs
Vital Signs
Temp Pulse Resp BP Pulse Ox
98.9 F 77 25 129/86 94
02/21/25 12:44 02/21/25 13:16 02/21/25 13:16 02/21/25 13:16 02/21/25 07:00
Lab Results
WBC 7.6 10^3/uL (4.8-10.8) 02/21/25 13:07
RBC 4.46 10^6/uL (4.20-5.40) 02/21/25 13:07
Hgb 10.3 g/dL (12.0-16.0) L 02/21/25 13:07
Hct 34.1 % (37.0-47.0) L 02/21/25 13:07
Plt Count 146 10^3/uL (130-400) 02/21/25 13:07
eGFR 35.79 02/21/25 09:54
Ghr-K-Qrixwifvrvy Pept 20489 pg/ml 02/17/25 04:42
Physical Exam
General no acute distress
HEENT no cephalic atraumatic extraocular muscle intact no scleral icterus no JVD neck supple
lungs coarse breath sounds
heart regular S1-S2 positive
abdomen soft nontender positive bowel sounds
extremities bilateral lower extremity edema
Neurologically nonfocal alert and oriented x 3
Skin lower extremity wound ulcer
Psych flat affect
Data Reviewed
-
Radiology: Image Personally Visualized and interpreted
Ultrasound: Image Personally Visualized and interpreted
Labs: Labs Reviewed by me, Discussed with Physician, Discussed with Nurse and Discussed with Patient
Assessment/Plan
-
64-year-old female with history of ischemic cardiomyopathy, severe tricuspid regurgitation, CAD status post CABG August 2024, CHF with an EF of 20%, insulin-dependent diabetes, peripheral vascular disease, diabetic neuropathy and lupus, history of
V-fib arrest status post ICD who has been seen by GI inpatient including most recently early January 2025 for weight loss and dysphagia now back with heart failure and foul-smelling wound. She has been hospitalized multiple times this year for CABG,
pneumonia, toe amputation, abdominal pain, dysphagia and 60 pound weight loss over 6 months since her surgery. She has been admitted since February 13 and underwent lower extremity angiogram for significant PAD and wound.
Underwent right heart catheterization today showed severely reduced cardiac output and index with elevated right and left ventricular filling pressures significant volume overload.
Renal was consulted for acute kidney injury with a creatinine of 1.6
Impression.
Acute kidney injury multifactorial cardiorenal IV contrast exposure baseline creatinine 1.
Ischemic cardiomyopathy ejection fraction 20%.
Diabetes
Severe PAD with necrotic left heel.
CAD/ICD
History of cardiac arrest
Plan.
Inotropic support
[place]
Initiate diuretics if no adequate urine output with milrinone alone.
Serial labs.
PureWick catheter placement.
Poor candidate for renal replacement therapy if needed/no current need at this time
Discussed with ICU nurse

32 minutes critical time
[2025-02-21 13:28] LABS: INR 1.28; PT 16.5 Sec (11.4-14.6)
[2025-02-21 13:29] LABS: APTT 32.3 Sec (23.4-35.0)
[2025-02-21 13:35] LABS: ALT (SGPT) 16 U/L (0-35); AST (SGOT) 21 U/L (14-36); Albumin 3.5 g/dl (3.5-5.0); Alkaline Phosphatase 141 U/L (38-126); Blood Urea Nitrogen 32 mg/dl (7-17); Calcium 7.9 mg/dl (8.4-10.2); Carbon Dioxide 26 mmol/L (22-30); Chloride 102 mmol/L (98-107); Estimated Creatinine Clearance 34 ml/min; Glucose 203 mg/dl (70-99); Magnesium 2.2 mg/dl (1.6-2.3); Potassium 5.1 mmol/L (3.5-5.1); Sodium 134 mmol/L (135-145); Total Protein 7.1 g/dl (6.3-8.2); eGFR 35.79
[2025-02-21] MEDS: REGLAN IV (14:07)
[2025-02-21] MEDS: TYLENOL 1000 MG PO (14:11)
--- NOTE | 2025-02-21 15:18 | W.PN.UPDATE ---
Update Note
Progress Note Update
Checked on patient in the ICU. Her is sitting bedside and I updated him. Reviewed results of right heart catheterization and initiation of milrinone. Updated [place] numbers include PA pressures of 70/30 NISBP 130 and CVP in the mid 20s. We
will increase milrinone drip to 0.2 mcg/kg/min, order placed by me. We will recheck in 1 hour. Of note patient did not receive any doses of Lasix today, her usual dose of Lasix 80 mg IV BID was held this morning due to ANTONIO. Nephrology following
now.
Additional update at 1648: back to see patient in ICU again. Following last visit I reached out to nephrology and they ordered Lasix 160 mg IV x1 now which nursing is actively pushing, BP stable thus far. Milrinone running at 0.25 mcg/kg/min. If BP
drops then would consider decreasing milrinone gtt as a first step. Remains on 6 L NC. No audible wheeze. Total of 33 min critical care time thus far today.
[2025-02-21] MEDS: DESENEX/MITRAZOL/ZEASORB 1 APPLIC TOPICAL ×2 (15:28→20:32)
[2025-02-21] MEDS: LASIX 160 MG IV (16:23)
--- NOTE | 2025-02-21 17:28 | PTCARENOTE ---
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 Upon initial assessment, pt noted to be audibly wheezing coarse bs. +tachypnea, orthopnea, sob at rest and with exertion. Obtaining pulse ox challenging given
cyanotic fingers and toes. Pulse ox on ear mid to high 80s on 2lnc, increased to 6lnc. PPt reported feeling better. Pulses absent by doppler in feet, +doppler popliteal b/l. Marilia Allen and Seda aware. Milrinone gtt initiated and titrated as
ordered. Dr Samuel in to see pt and updated. Cha cath placed and lasix given as ordered. Otherwise please see worklist.
[2025-02-21 17:30] LABS: Glucose - Point of Care 179 mg/dl (70-99)
[2025-02-21 21:16] LABS: Glucose - Point of Care 219 mg/dl (70-99)
[2025-02-22] VITALS (49 sets, daily range): BP systolic 85–152; BP diastolic 47–90; BMI 27.6
--- NOTE | 2025-02-22 00:30 | PTCARENOTE ---
Pt lethargic/withdrawn, arouses to voice but is uninterested in care offered to her. Follows very simple commands. STROUD. helps turn in bed. When suggested to use the language line, pt uninterested. Mainly Faroese speaking, but understands little
Swedish and can make needs known. Pleasant, but flat affect. HOB 30 degrees. Denies pain. Afebrile. NSR on monitor. Milrinone maintained as ordered, cardiac numbers q8h and documented. Unable to obtain pulses bilaterally PT/DP, able to get doppler
signals B/L Popliteal, as previous noted and discussed with providers. 6L NC, 99%. Tolerating 2200 laurie diet. 48oz fluid restriction appreciated. Cha draining clear yellow adequate urine. Skin as documented by WOC RN. Will monitor.
[2025-02-22] MEDS: PRIMACOR 20 MG 100 IV ×2 (04:20→21:34)
--- NOTE | 2025-02-22 04:30 | PTCARENOTE ---
Pt refusing bath at this time. Daily weight obtained, pt repositioned. AM labs sent and pending. Pt resting comfortably with no change in previous assessment. Will monitor closely.
[2025-02-22 04:47] LABS: Hematocrit 29.2 % (37.0-47.0); Hemoglobin 8.8 g/dL (12.0-16.0); Mean Corp Hgb Conc. 30.1 g/dL (33.0-37.0); Mean Corpuscular Volume 75.6 fL (81.0-99.0); Platelet Count 122 10^3/uL (130-400); Red Cell Dist. Width 17.6 % (11.5-14.5)
[2025-02-22 05:02] LABS: Blood Urea Nitrogen 36 mg/dl (7-17); Calcium 8.1 mg/dl (8.4-10.2); Carbon Dioxide 30 mmol/L (22-30); Chloride 104 mmol/L (98-107); Estimated Creatinine Clearance 38 ml/min; Glucose 174 mg/dl (70-99); Magnesium 2.3 mg/dl (1.6-2.3); Potassium 4.2 mmol/L (3.5-5.1); Sodium 137 mmol/L (135-145); eGFR 42.01
--- NOTE | 2025-02-22 07:33 | W.PN.INTV ---
Today's Communication / Plan
Recommendations
Please see attg note/attestation for final recommendations
Plan:
- continue milrinone
- recheck cardiac output at noon
- monitor I/O to assess if additional dose of lasix is needed
- recheck CBC in AM for Hgb and Plt
Assessment
-
64 yo F PMH of HFrEF with EF 20%, HTN, HLD, CAD (underwent CABG), history of ventricular fibrillation cardiac arrest now with ICD, PAD, diabetes who initially p/w peripheral edema in leg. Has been admitted to hospital since February 13. On February 21, she
underwent right heart catheterization which disclosed a cardiac output of 1.94 L/min and PA pressures of 68/29.
CV:
# acute exacerbation of HFrEF
# Cardiorenal syndrome
- continue milrinone at 0.25 mcg/kg/min
- net negative 1200 mLs, received lasix on 02/21/2025 afternoon
- Creatinine came down to 1.4 from 1.6;
- despite diuresis, decreasing creatinine suggests element of cardiorenal syndrome
- Cardiac output improved to 3.4 L/min, but PA pressures still elevated
- BPs have been 100s/50s
- O2 sat 99%
- K+ within normal limits
Renal
- nephrology rec no HD at this time
- monitor I/O
- 2+ peripheral edema may suggest additional fluid can come off
GI
- pantoprazole
Heme
- heparin for dvt ppx
- Hgb did drop but no signs of bleeding, consider repeat CBC in AM
Neuro: denies pain
ID: WBC within normal limits despite wounds on heel.
Plan:
- continue milrinone
- recheck cardiac output at noon
- monitor I/O to assess if additional dose of lasix is needed
- consider recheck CBC in AM for Hgb and Plt
Subjective Dataa
Subjective Data
Date of Service:
Date of Service: February 22, 2025
Subjective:
64 yo F PMH of HFrEF with EF 20%, HTN, HLD, CAD (underwent CABG), history of ventricular fibrillation cardiac arrest now with ICD, PAD, diabetes who initially p/w peripheral edema in leg. Has been admitted to hospital since February 13. On February 21, she
underwent right heart catheterization which disclosed a cardiac output of 1.94 L/min and PA pressures of 68/29. She was then admitted to ICU for further management with milrinone drip.
This morning, she says she feels well, denies as much shortness of breath.
Review of Systems
General: Other (per HPI)
Objective Data
Data Reviewed
Vital Signs / I&O / Oxygen:
Vital Signs
Temp Pulse Resp BP Pulse Ox
97.6 F 69 22 103/53 99
02/22/25 03:07 02/22/25 05:00 02/22/25 05:00 02/22/25 05:00 02/22/25 05:00
Intake and Output
02/21/25 02/22/25 02/23/25
06:59 06:59 06:59
Intake Total 480 / 480 1356.0 / 1356.0
Output Total 1840 / 1840
Balance 480 / 480 -484.0 / -484.0
SaO2 99
Nasal Cannula flow liters per 6
minute
Physical Exam
General: Comfortable
HEENT: Normocephalic and Anicteric
Cardiovascular: Regular Rhythm and Peripheral Edema (2+ pitting edema in lower extremities b/l)
Respiratory: Wheeze (possibly mild cardiac wheezes)
GI: Soft, Non Distended and Non Tender
Neurology: Awake and Alert
Skin: Warm, Dry and Other (wounds on L heel (in bandages))
Labs/Micro/Reports
Lab Data
02/22/25 04:19
02/22/25 04:19
Laboratory Results
02/21/25
13:07
PT 16.5 H
INR 1.28
APTT 32.3
Hgb 8.8 from 10.3
WBC 6.8
Plt 122 from 146
K+ 4.2 (normal)
Cr 1.4 from 1.6
PAP 57/18 CVP 30
Cardiac output 3.4 L/min
I/Os: net -1200 ccs
Care Review
-
Total Time Spent with Patient (in minutes): 15
[2025-02-22 07:39] LABS: Glucose - Point of Care 202 mg/dl (70-99)
[2025-02-22] MEDS: HEPARIN 5000 UNITS SC ×2 (07:44→21:23)
[2025-02-22] MEDS: PACERONE PO (07:44)
--- NOTE | 2025-02-22 07:44 | W.PN.INTV ---
Today's Communication / Plan
Recommendations
Continue milrinone
Trend creatinine
Continue diuresis
Assessment
-
64-year-old former smoking female with a history of hypertension, hyperlipidemia, CAD, diabetes, asthma, PAD, C. difficile and CHF who presented with leg edema and a left heel wound noted to have acute on top of chronic heart failure and underwent
cardiac catheterization which revealed significantly elevated pressures and transferred to ICU for milrinone drip, PA catheter and critical care monitoring-power equipment technology instructor consulted for CHF/critical care management 02/21/2025.
CHF-reduced EF
Status post cardiac right heart catheterization 02/21/2025
ANTONIO
Nausea
Left heel ulcerated wound due to diabetes and PAD
Hypokalemia
Anemia-normocytic
Hyperglycemia
Hypocalcemia
Conditions present prior to admission:
Hypertension.
Hyperlipidemia.
Diabetes
Diabetic neuropathy
CAD/CABG-08/2024-[facility]
Heart failure reduced -ischemic cardiomyopathy-EF 20%.
History of V-fib arrest status post ICD
Lupus.
PAD.
Asthma.
CABG 08/2024-[facility]. Cholecystectomy. Right toe amputation 08/2024.
Plan
Remains critically ill on the milrinone drip
Supplemental oxygen as needed
Encourage incentive spirometry
Aspiration precautions
Nebulizers as needed-history of asthma-suspect wheezing on exam is 'cardiac wheezing'-improved on 03/21/2025
Cardiology following-correspondence reviewed
Right heart catheterization summarized below-significantly elevated right and left sided pressures
Diuresis as tolerated-intermittent intravenous Lasix
Milrinone drip
Amiodarone 200 mg daily continues
Metoprolol continues
Acute kidney injury noted-serum creatinine improving
Nephrology evaluation-correspondence reviewed
No indication for hemodialysis at this point-would be a poor candidate
Monitor blood sugar
Insulin supplementation as needed
Replace electrolytes
Monitor hemoglobin
Transfuse if needed
DVT prophylaxis-on heparin
GI prophylaxis-pantoprazole
Early nutrition
Early mobilization
Reviewed with at the bedside
Critical care statement: A total of 40 minutes of critical care time was provided for this patient today. This includes management of unstable vital signs, evaluation of the patient at bedside, reviewing the patient's pertinent medical records
including radiographs, Pulmonary artery catheter monitoring,microbiology, laboratory evaluations, and discussion with primary team, consultants, pharmacy, nutrition, physical therapy, case management, charge nurse, critical care nursing, and
respiratory therapy.
Diagnostic data:
Chest x-ray 07/03/2023-mildly elevated right hemidiaphragm
Chest x-ray 01/20/2025- new and progressive left lower lobe pneumonia
Chest x-ray 02/09/2025-stable, linear densities both lung bases likely representing scarring
CT chest abdomen and pelvis 08/20/2024-small bilateral pleural effusions, left thyroid lobe nodule measuring 1.[address] chest 08/21/2024-nodule left lobe thyroid gland measuring 2.1 cm, cardiomegaly, fatty infiltration of liver
Right heart catheterization 2019 12-02/21/2025-RA 34, RV 60/18-mean 31, PA 68/29-mean 44, PCWP-43, cardiac output 1.9, cardiac index 1.1, SVR 2480
Subjective Dataa
Subjective Data
Date of Service:
Date of Service: February 22, 2025
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
Subjective:
feels better, less short of breath, no complaints of chest pain, abdominal pain, and continues to have significant leg swelling.
Review of Systems
General: Other ( Per HPI)
Objective Data
Data Reviewed
Vital Signs / I&O / Oxygen:
Vital Signs
Temp Pulse Resp BP Pulse Ox
97.6 F 69 22 103/53 99
02/22/25 03:07 02/22/25 05:00 02/22/25 05:00 02/22/25 05:00 02/22/25 05:00
Intake and Output
02/21/25 02/22/25 02/23/25
06:59 06:59 06:59
Intake Total 480 / 480 1356.0 / 1356.0
Output Total 1840 / 1840
Balance 480 / 480 -484.0 / -484.0
SaO2 99
Nasal Cannula flow liters per 6
minute
Physical Exam
General: Respiratory Distress (n) and Comfortable
HEENT: Normocephalic, Anicteric and Moist Mucous Membranes
Cardiovascular: Regular Rhythm and Murmur
Respiratory: Wheeze (n), Crackles, Non-Labored Respirations, Accessory Resp Muscle Use (n) and Stridor
GI: Soft, Non Distended and Non Tender
Neurology: Awake, Alert and No Motor Deficits
Skin: Warm, Good Color, Cyanosis (n) and Jaundice (n)
Labs/Micro/Reports
Lab Data
02/22/25 04:19
02/22/25 04:19
Laboratory Results
02/21/25
13:07
PT 16.5 H
INR 1.28
APTT 32.3
[2025-02-22] MEDS: LIPITOR PO (07:45)
[2025-02-22] MEDS: PLAVIX PO (07:45)
[2025-02-22] MEDS: PROTONIX PO (07:45)
[2025-02-22] MEDS: DESENEX/MITRAZOL/ZEASORB 1 APPLIC TOPICAL ×2 (07:45→21:23)
--- NOTE | 2025-02-22 07:45 | PTCARENOTE ---
Received pt @ change of shift. Pt drowsy, awakens to verbal stim; ox3; denies pain; LE chronic neuropathy. Mostly Ecuadorean speaking but able to communicate w basic Slovenian. SR w 1st degree AVB w BBB w prolonged QT. +2 LE edema. Unable to obtain b/l
DP/PT pulses w doppler; not a new finding. + b/l popliteal pulses w doppler. MD team aware. SpO2 100% on 6LNC; weaned down to 4LNC and tolerating. +BS, abd round/obese; tolerating diet. Cha in place draining yellow urine; diuresing well. Mx
wound dressing c/d/i. R cordis w KVO and milrinone gtt- see flow sheet. [place] sil catheter in place @ 48cm measuring PAP/CVP pressures; transduced, calibrated, and monitored; all port patent and secured. CI/CO numbers q8h- see flow sheet. Pt.
instructed on how to report care concerns; call olya davidson in reach.
[2025-02-22] MEDS: DAKIN'S SOLUTION 0.125% 1/4 STRENGTH 473 ML TOPICAL (07:46)
[2025-02-22] MEDS: REGLAN 5 MG IV ×3 (07:49→17:31)
--- NOTE | 2025-02-22 08:15 | W.PN.CARDCBS ---
Today's Communication / Plan
-
Maintain milrinone and diuresis
Impression / Plan
-
Primary care provider: Keli Gonzalez MD
Primary pecan mallow dipper: Lan Estrada MD
Impression:
Admitted with LE edema and left heel wound 02/13/25
Recent admission for acute HF and dysphagia 01/20/2025 until 01/24/2025
Acute on chronic HFrEF
Nausea, improving
ICM EF 20 to 25% by echo 12/19/2024
Severe TR with PAP 63 mmHg
Chronic dysphagia, chronic abdominal pain
CAD s/p CABG with VILLAFUERTE to LAD, saphenous vein to diagonal, saphenous vein to obtuse marginal at [facility] 08/26/24
Postop VF arrest
Patent VILLAFUERTE to LAD, patent SVG to diagonal, patent SVG to OM by postop cardiac cath
s/p Martini Saint Eric SC ICD at [facility] 08/2024
h/o C. difficile postop CABG at [facility]
Anaphylactic aspirin allergy with previous mild allergic reaction during attempted aspirin desensitization therapy at [facility] 08/24/24
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
no options on peripheral angiogram 02/16/25, outpatient eval for Limflow procedure for known obliterative small vessel disease
DM 2
Diabetic neuropathy
Lupus
Hypertension
Dyslipidemia
Echo 07/2024: tricuspid regurgitation increased from trace to severe and systolic pulmonary artery pressure previously was estimated at 25 to 30 mmHg and now is estimated at 63 mmHg.
Echo 12/09/24: finds severely reduced left ventricular systolic function with ejection fraction of 20-25%. Global hypokinesis with septal akinesis. Stage III diastolic dysfunction. Moderate mitral regurgitation, severe tricuspid regurgitation with
estimated pulmonary artery pressure of 63 mmHg.
Right heart catheterization February 21, 2025:
RA pressure 34, RV pressure 64/18, PA pressure 68/29, pulmonary capillary wedge pressure 43. Cardiac output is 1.94 with a cardiac index of 1.11. SVR is 2480 [id number])
Plan:
Regarding decompensated HFrEF, severe tricuspid regurgitation, moderate mitral regurgitation:
After evaluation of right heart catheterization 02/21/25, decision was made to initiate milrinone 02/21/25 @ 0.25 mcg/kg/min.
Also being diuresed with Lasix, currently 80 mg IV twice daily.
Fluid balance is -1268 mL
Recorded weight is down 10 ounces from 156 pounds and 4 ounces to 155 pounds and 10 ounces
Blood pressures have improved, systolic blood pressures averaging approximately 110 and diastolics averaging approximately 55-60
Creatinine is down to 1.4 from 1.6, potassium is 4.2 and magnesium 2.3
RHC 7 AM finds PA 48/9 mmHg
This morning she tells me she is feeling better, more energetic and less short of breath than she did yesterday.
Despite minimal change in weight, fluid balance is negative and filling pressures have improved as has blood pressure and overall clinically she is improving
- Maintain milrinone infusion
- Maintain diuresis
- Maintain losartan at 12.5 mg daily
- Over next 24-48 hrs if BP and renal function allow try to uptitrate oral GDMT for HFrEF as we consider weaning milrinone (resume low-dose BB, ARB, spironolactone). Did not tolerate Jardiance (Chronic dysphagia/abd pain)
Regarding postoperative (CABG Aug 2024) VF arrest single-chamber ICD is in place and she has been maintained on amiodarone with no recent recurrences of sustained ventricular arrhythmias
Maintain amiodarone 200 mg daily
Regarding her vascular disease, she has known lower extremity arterial disease with lower extremity wounds and she did undergo arteriogram with attempted revascularization on February 16, 2025 which was not successful. Currently being managed
medically. She has aspirin allergy.
Maintain Plavix 75 mg daily.
She has had rather chronic GI symptoms, abdominal bloating and discomfort. Has been followed by GI. had upper endoscopy 01/23/2025, but they did not find any obvious findings. Despite attempts at colonoscopy prep it was inadequate and colonoscopy
was not attempted and she was recommended to follow-up as an outpatient.
She remains critically ill on continuous infusion of inotrope. Clinically improved over the past 24 hours.
I discussed this with the patient and her at the bedside who acted as billing clerk. All of their questions have been asked.
Critical care time 38 min
HPI: Patient came to [facility] ER today with increased LE edema and left heel wound and is now admitted for foot wound and acute HF, cardiology has been consulted. Patient previously admitted to [facility] 08/20/2024 until 08/26/2024 with NSTEMI and MV CAD.
Patient with previous anaphylactic allergy to aspirin and there was an attempt at aspirin desensitization starting on the night of 08/21/2024 and patient had swollen eyes and hand tremors so desensitization therapy was stopped and the family was not
interested in another attempt. It then came to light that the patient's family member is a senior radiation therapy technician at [facility] and the family requested transfer which was performed on 08/26/2024. As noted above patient had CABG and postop suffered VF
arrest. Post CABG cardiac cath showed patent grafts and patient ultimately had an Martini Saint Eric ICD placed. [facility] also [facility] toe amputations that were performed all as part of her postop
course. Patient was just admitted to [facility] 01/20/2025 until 01/24/2025 with acute HFrEF and dysphagia, but GI workup was unrevealing in part because colonoscopy prep was inadequate. Left heel wound has been getting worse at home and patient is known
to the vascular surgery service, sounds like at some point she was supposed to get a peripheral angiogram that was delayed due to her last admission. Also, patient missed her cardiology visit on 02/07/2025 and called the next day to let us know that
she was gaining weight and at that time Dr. Estrada increased her Lasix to 80 mg BID, the patient denies any decrease in urine output and LE edema only worsened.
Progress Note - Documentation Spec
Subjective
Date of Service: February 22, 2025
She is awake and alert resting in bed and appears comfortable. She is able to communicate to me that she feels stronger/better today compared to yesterday. No chest pain shortness of breath palpitations or dizziness.
Objective
Labs:
02/22/25 04:19
02/22/25 04:19
Labs
Hgb 8.8 g/dL (12.0-16.0) L 02/22/25 04:19
Hct 29.2 % (37.0-47.0) L 02/22/25 04:19
Plt Count 122 10^3/uL (130-400) L 02/22/25 04:19
PT 16.5 Sec (11.4-14.6) H 02/21/25 13:07
INR 1.28 02/21/25 13:07
APTT 32.3 Sec (23.4-35.0) 02/21/25 13:07
Sodium 137 mmol/L (135-145) 02/22/25 04:19
Potassium 4.2 mmol/L (3.5-5.1) 02/22/25 04:19
BUN 36 mg/dl (7-17) H 02/22/25 04:19
Creatinine 1.4 mg/dL (0.6-1.0) H 02/22/25 04:19
Glucose 174 mg/dl (70-99) H 02/22/25 04:19
Vital Signs and I&O:
Vital Signs
Temp Pulse Resp BP Pulse Ox
97.6 F 73 22 109/58 99
02/22/25 03:07 02/22/25 07:44 02/22/25 05:00 02/22/25 07:44 02/22/25 05:00
Vital Signs
Temp Pulse Resp BP Pulse Ox
97.6 F 73 22 109/58 99
02/22/25 03:07 02/22/25 07:44 02/22/25 05:00 02/22/25 07:44 02/22/25 05:00
Intake & Output
02/20/25 02/21/25 02/22/25 02/23/25
06:59 06:59 06:59 06:59
Intake Total 2400 / 2400 480 / 480 1356.0 / 1366.4 260.8 / 260.8
Output Total 1839 / 0 325 / 325
Balance 2400 / 2400 480 / 480 -484.0 / -673.6 -64.2 / -64.2
Physical Exam
Physical Exam
On exam she is well-appearing and resting comfortably no acute distress
Heart is regular normal S1 and S2, no S3 no S4 is a grade 2/6 apical holosystolic murmur and a 2/6 systolic murmur at the lower left sternal border. PMI is laterally and inferiorly displaced. There are no rubs
Lungs are clear to auscultation bilaterally
Abdomen soft nontender nondistended with normoactive bowel sounds
--- NOTE | 2025-02-22 08:45 | PTOTSP ---
Reviewed chart and noted pt transferred from [id number] to [id number] following cath yesterday 02/21, and PT/OT orders were not continued upon transfer. Will hold PT at this time. Will need new orders for PT and OT when stable to resume therapy activities.
[2025-02-22] MEDS: PACERONE 200 MG PO (09:28)
[2025-02-22] MEDS: LIPITOR 40 MG PO (09:28)
[2025-02-22] MEDS: PROTONIX 40 MG PO (09:28)
[2025-02-22] MEDS: PLAVIX 75 MG PO (09:29)
[2025-02-22] MEDS: NOVOLOG FLEXPEN-MODERATE RESISTANCE 3 UNITS SC (09:29)
--- NOTE | 2025-02-22 11:15 | W.PN.HOSP.TC ---
Today's Communication/Plan
-
Continue with milrinone drip
Monitor urinary output
Trend creatinine
Remains critically ill
Assessment / Plan
Assessment / Plan
Physical Exam
General: No Apparent Distress and Comfortable
HEENT: Moist mucous membranes and Atraumatic
Respiratory: much less rales (at bases ); No Wheezes, nasal cannula
Cardiac: S1/S2 and Regular Rhythm
GI: Soft and Non Tender
Genito-urinary: No Cha
Musculoskeletal: No Clubbing remains with B/L LE pitting edema
Skin: Left heel dressing
Neuro: Alert, Oriented and Nonfocal/grossly intact; No Facial Droop or Tremors
Psych: Calm;
64 female presented with worsening leg edema and left heel wound
# Acute on severe chronic HFrEF ? Shock cardiogenic
#Severe TR
#Acute hypoxic respiratory failure
ECHO -11/2024-HFrEF with EF of 20 to 25%, global hypokinesis with septal akinesis, severe TR with PASP elevated to 63, moderate MR.
Daily weight. Strict I &O
Patient with worsening renal failure and not much improvement in weight
Underwent right heart catheterization which showed severely reduced cardiac output and index. Elevated right and left ventricular filling pressure
Wedge pressure 43.
Cardiac index severely reduced 1.11.
Discussed with interventional cardiology.
Plans to continue with [place] catheter
Milrinone continued
Hold losartan. Lasix on hold. Metoprolol on hold.
Status post 160 mg Lasix yesterday per nephrology
Defer diuretics to nephrology
Not much improvement in weight.
Wean oxygen as tolerated
Diuresis per nephrology
Monitor in ICU
Appreciate cards input
# Acute kidney injury likely suspected due to cardiorenal syndrome
#Mild hyperkalemia possibly due to losartan in the setting of elevated creatinine
Creatinine continues to uptrend
Received dose of Zaroxolyn 02/20/2025
Status post right heart catheterization as above
Losartan held for now
Creatinine mild improvement with diuresis
Potassium normalized
Nephrology input
# Nausea
Now on low dose Reglan AC and can taper in 1 week
Possible gastritis or Gastroparesis or congestive gastropathy
US did not hsow acute findings.
No fever or leukocytosis, she denies constipation or diarrhea, reports normal BM.
c/w IV PPI
off augmentin.
EGD 01/23/25 showed focal gastritis
c/w PPI , trial of short course of Reglan.
# Left heel ulcerated wound due to DM & PAD
Patient and family decided to come to the hospital due to worsening wound with foul-smelling.
s/p IR for right central line placement.
s/p arteriogram 02/16 showed significant PAD, not amenable to stent placement.
Negative blood culture
Empiric antibiotic
Tylenol for pain
Appreciate ID & Vascular surgery help, f/u in office with Dr Harris.
#Mild thrombocytopenia
Continue to monitor
# Hypokalemia, replaced
#Normocytic anemia-Anemia of chronic disease
Continue to monitor hemoglobin.
Transfuse for hemoglobin less than 7
#Type 2 diabetes mellitus-
Reducing Lantus due to low blood glucose
Holding AC insulin due to hypoglycemia, c/w ISS
POC 172 am
#SLE-
Prior medications on admission, was on prednisone.
#Essential hypertension-
Monitor for now as with elevated creatinine.
#Hyperlipidemia-
# h/o V fib arrest s/p ICD
- cont amiodarone
#Peripheral diabetic neuropathy-
#History of GERD-
IV PPI
#CAD with Recent CABG-
She denies chest pain.
Troponin negative X 2
- 08/2024
- cont Plavix.
#Anxiety/depression-
Continue citalopram 20 mg.
DVT prophylaxis-
Continue subcu hep
CODE STATUS-
Full code
PT-Home VN. CM aware.
Discussed with patient spouse at bedside in details
Anticipated Discharge: > 48 hours
Subjective/Interval History
-
Date of Service: February 22, 2025
Remains with [place] catheter
Remains on milrinone drip
Patient with good urinary output
Remains on oxygenation
Objective Data
-
Labs:
Laboratory Results
02/22/25
04:19
WBC 6.8
Hgb 8.8 L
Hct 29.2 L
Plt Count 122 L
Sodium 137
Potassium 4.2
Chloride 104
Carbon Dioxide 30
BUN 36 H
Creatinine 1.4 H
Glucose 174 H
Calcium 8.1 L
Vital Signs:
Vital Signs
Temp Pulse Resp BP Pulse Ox
98.0 F 75 17 113/52 98
02/22/25 08:00 02/22/25 10:00 02/22/25 10:00 02/22/25 10:00 02/22/25 10:32
I&O
02/21/25 02/22/25 02/23/25
06:59 06:59 06:59
Intake Total 480 / 480 1356.0 / 1366.4 281.6 / 281.6
Output Total 1839 / 2039 525 / 525
Balance 480 / 480 -484.0 / -673.6 -243.4 / -243.4
Data Reviewed
-
Total Time Spent with Patient (in minutes): 55
[2025-02-22 12:05] LABS: Glucose - Point of Care 174 mg/dl (70-99)
--- NOTE | 2025-02-22 12:18 | PTCARENOTE ---
Wound care completed per order on b/l heels and sacrum- see wound flow sheet. Upon wound care DP/PT pulses checked and able to obtain at 1200 b/l. Pt. refused fiber filled boots; provided education but pt. unwilling to comply. C.O/C.I numbers
obtained per orders; milrinone continues at non-titratable rate- see flow sheets. Pt. assisted w active repositioning in bed. Call dobson remains in reach.
--- NOTE | 2025-02-22 12:39 | W.PN.NEPH.PH ---
Today's Communication / Plan
-
Lasix 80 3 times daily
Assessment/Plan
-
64-year-old female with history of ischemic cardiomyopathy, severe tricuspid regurgitation, CAD status post CABG August 2024, CHF with an EF of 20%, insulin-dependent diabetes, peripheral vascular disease, diabetic neuropathy and lupus, history of
V-fib arrest status post ICD who has been seen by GI inpatient including most recently early January 2025 for weight loss and dysphagia now back with heart failure and foul-smelling wound. She has been hospitalized multiple times this year for CABG,
pneumonia, toe amputation, abdominal pain, dysphagia and 60 pound weight loss over 6 months since her surgery. She has been admitted since February 13 and underwent lower extremity angiogram for significant PAD and wound.
Underwent right heart catheterization today showed severely reduced cardiac output and index with elevated right and left ventricular filling pressures significant volume overload.
Renal was consulted for acute kidney injury with a creatinine of 1.6
Impression.
Acute kidney injury multifactorial cardiorenal IV contrast exposure baseline creatinine 1.
Ischemic cardiomyopathy ejection fraction 20%.
Diabetes
Severe PAD with necrotic left heel.
CAD/ICD
History of cardiac arrest
Plan.
Inotropic support
Dorothy
Serial labs.
Cha catheter
Poor candidate for renal replacement therapy if needed/no current need at this time
Start Lasix 80 mg 3 times daily
Discussed with ICU nurse

32 minutes critical time
-
-
Date of Service: February 22, 2025
CC / HPI / ROS
-
Chief Complaint:
Shortness of breath
History of Present Illness:
CHF severe ischemic cardiomyopathy with ANTONIO
Review of Systems:
No chest pain or shortness of breath
Nonoliguric
Labs
-
Labs:
WBC 6.8 10^3/uL (4.8-10.8) 02/22/25 04:19
RBC 3.86 10^6/uL (4.20-5.40) L 02/22/25 04:19
Hgb 8.8 g/dL (12.0-16.0) L 02/22/25 04:19
Hct 29.2 % (37.0-47.0) L 02/22/25 04:19
Plt Count 122 10^3/uL (130-400) L 02/22/25 04:19
Sodium 137 mmol/L (135-145) 02/22/25 04:19
Potassium 4.2 mmol/L (3.5-5.1) 02/22/25 04:19
Chloride 104 mmol/L (98-107) 02/22/25 04:19
Carbon Dioxide 30 mmol/L (22-30) 02/22/25 04:19
BUN 36 mg/dl (7-17) H 02/22/25 04:19
Creatinine 1.4 mg/dL (0.6-1.0) H 02/22/25 04:19
eGFR 42.01 02/22/25 04:19
Glucose 174 mg/dl (70-99) H 02/22/25 04:19
Calcium 8.1 mg/dl (8.4-10.2) L 02/22/25 04:19
Phosphorus 4.2 mg/dl (2.5-4.5) 02/21/25 13:07
Xsk-E-Fhmizqovfip Pept 05427 pg/ml 02/17/25 04:42
Albumin 3.5 g/dl (3.5-5.0) 02/21/25 13:07
Physical Exam
-
Vital Signs:
Vital Signs
Temp Pulse Resp BP Pulse Ox
98.2 F 76 24 114/58 99
02/22/25 11:23 02/22/25 11:00 02/22/25 11:00 02/22/25 11:00 02/22/25 11:00
[2025-02-22] MEDS: NOVOLOG FLEXPEN-MODERATE RESISTANCE 1 UNITS SC ×2 (12:40→17:32)
[2025-02-22] MEDS: LASIX 80 MG IV ×2 (15:32→21:24)
--- NOTE | 2025-02-22 16:07 | CM ---
Milrinon/Lasix IV. Discharge POC: On service with [facility] for RN. Therapy rec HH vs [facility]. Referral forwarded previously. Will await further therapy evals.
[2025-02-22 17:19] LABS: Glucose - Point of Care 171 mg/dl (70-99)
--- NOTE | 2025-02-22 20:30 | PTCARENOTE ---
assumed care, pt Maori speaking but understands Persian, Ox3, able to make needs known, language line in room, Sinus on the monitor c BBB, doppler pedals, doppler R PT, weak radials, +1 lower extremities, C.O. 4.45 C.I. 2.56, [place] @ 48cm, CVP and
PAP zeroed, 100% 2L NC, diminished, coarse c crackles @ bases, Bsx4, Cha draining yellow output, wounds per worklist, milrinone 0.25mcg, R cordis, call dobson within reach, otherwise refer to documentation
[2025-02-22] MEDS: LANTUS 0.07 UNITS SC (21:24)
[2025-02-22 21:32] LABS: Glucose - Point of Care 177 mg/dl (70-99)
[2025-02-22] MEDS: NOVOLOG FLEXPEN 1 UNITS SC (21:39)
[2025-02-23] VITALS (44 sets, daily range): BP systolic 96–148; BP diastolic 34–95; BMI 27.0
[2025-02-23] MEDS: TYLENOL 1000 MG PO
--- NOTE | 2025-02-23 00:04 | PTCARENOTE ---
systems reviewed, pt c/o 01/30 buttocks pain treated per OCT, CHG bath, otherwise refer to documentation
[2025-02-23] MEDS: NEURONTIN 400 MG PO ×2 (02:00→22:39)
[2025-02-23 03:36] LABS: Hematocrit 26.8 % (37.0-47.0); Hemoglobin 8.1 g/dL (12.0-16.0); Mean Corp Hgb Conc. 30.2 g/dL (33.0-37.0); Mean Corpuscular Volume 75.9 fL (81.0-99.0); Nucleated Red Blood Cells % 0 %; Platelet Count 116 10^3/uL (130-400); Red Cell Dist. Width 17.8 % (11.5-14.5)
[2025-02-23 03:54] LABS: Blood Urea Nitrogen 30 mg/dl (7-17); Calcium 8.0 mg/dl (8.4-10.2); Carbon Dioxide 31 mmol/L (22-30); Chloride 100 mmol/L (98-107); Estimated Creatinine Clearance 53 ml/min; Glucose 166 mg/dl (70-99); Potassium 3.5 mmol/L (3.5-5.1); Sodium 138 mmol/L (135-145); eGFR > 60.00
--- NOTE | 2025-02-23 04:12 | PTCARENOTE ---
systems reviewed, labs sent, weight obtained, 20G R hand placed, diuresing, otherwise refer to documentation
[2025-02-23] MEDS: KCL 20 MEQ PO (04:31)
[2025-02-23 07:23] LABS: Glucose - Point of Care 133 mg/dl (70-99)
[2025-02-23] MEDS: NOVOLOG FLEXPEN-MODERATE RESISTANCE SC ×2 (07:42→12:28)
[2025-02-23] MEDS: DESENEX/MITRAZOL/ZEASORB 1 APPLIC TOPICAL ×2 (07:42→19:58)
--- NOTE | 2025-02-23 07:48 | W.PN.INTV ---
Today's Communication / Plan
Recommendations
Continue to monitor pulmonary artery catheter parameters
Continue diuresis
Monitor renal function
Milrinone drip per cardiology
Assessment
-
64-year-old former smoking female with a history of hypertension, hyperlipidemia, CAD, diabetes, asthma, PAD, C. difficile and CHF who presented with leg edema and a left heel wound noted to have acute on top of chronic heart failure and underwent
cardiac catheterization which revealed significantly elevated pressures and transferred to ICU for milrinone drip, PA catheter and critical care monitoring-side door man consulted for CHF/critical care management 02/21/2025.
CHF-reduced EF
Status post cardiac right heart catheterization 02/21/2025
ANTONIO
Nausea
Left heel ulcerated wound due to diabetes and PAD
Hypokalemia
Anemia-normocytic
Hyperglycemia
Hypocalcemia
Conditions present prior to admission:
Hypertension.
Hyperlipidemia.
Diabetes
Diabetic neuropathy
CAD/CABG-08/2024-[facility]
Heart failure reduced -ischemic cardiomyopathy-EF 20%.
History of V-fib arrest status post ICD
Lupus.
PAD.
Asthma.
CABG 08/2024-[facility]. Cholecystectomy. Right toe amputation 08/2024.
Plan
She continues to be critically ill on the milrinone drip
Supplemental oxygen as needed
Incentive spirometry encouraged
Aspiration precautions
Nebulizers as needed-history of asthma-suspect wheezing on exam is 'cardiac wheezing'-improved on 02/22/2025 and 03/16
Cardiology following-correspondence reviewed
Right heart catheterization summarized below-significantly elevated right and left sided pressures-PA diastolic trending down-? PA diastolic documented at 12-suspect erroneous-now 30
Diuresis as tolerated-intermittent intravenous Uywcq-juenv-7.7 L / 24-hour
Monitor renal function, electrolytes, intake/output, lower extremity edema and weight
Replace electrolytes as needed
Milrinone drip continues for now per cardiology
Amiodarone 200 mg daily continues
Metoprolol continues
Acute kidney injury noted-serum creatinine improving in spite of aggressive diuresis-serum creatinine now 1.0
Nephrology evaluation-correspondence reviewed
No indication for hemodialysis at this point-would be a poor candidate
Monitor blood sugar
Insulin supplementation as needed
Monitor hemoglobin-trending down-now 8.1 and platelet count 116
Transfuse if needed
DVT prophylaxis-on heparin
GI prophylaxis-pantoprazole
Early nutrition
Early mobilization
Reviewed with at the bedside and updated daughter over the phone at the bedside 02/23/25
Critical care statement: A total of 42 minutes of critical care time was provided for this patient today. This includes management of unstable vital signs, evaluation of the patient at bedside, reviewing the patient's pertinent medical records
including radiographs, Pulmonary artery catheter monitoring,microbiology, laboratory evaluations, and discussion with primary team, consultants, pharmacy, nutrition, physical therapy, case management, charge nurse, critical care nursing, and
respiratory therapy.
Diagnostic data:
Chest x-ray 07/03/2023-mildly elevated right hemidiaphragm
Chest x-ray 01/20/2025- new and progressive left lower lobe pneumonia
Chest x-ray 02/09/2025-stable, linear densities both lung bases likely representing scarring
CT chest abdomen and pelvis 08/20/2024-small bilateral pleural effusions, left thyroid lobe nodule measuring 1.[address] chest 08/21/2024-nodule left lobe thyroid gland measuring 2.1 cm, cardiomegaly, fatty infiltration of liver
Right heart catheterization 2019 12-02/21/2025-RA 34, RV 60/18-mean 31, PA 68/29-mean 44, PCWP-43, cardiac output 1.9, cardiac index 1.1, SVR 2480
Subjective Dataa
Subjective Data
Date of Service:
Date of Service: February 23, 2025
Chief Complaint: [facility] Follow Up and Pulmonary Follow Up
Subjective:
feels better, continues to diurese, no complaints of chest pain, increased shortness of breath or wheezing, or abdominal pain
Review of Systems
General: Other ( Per HPI)
Objective Data
Data Reviewed
Vital Signs / I&O / Oxygen:
Vital Signs
Temp Pulse Resp BP Pulse Ox
97.3 F 76 15 109/65 100
02/23/25 07:10 02/23/25 06:00 02/23/25 06:00 02/23/25 06:00 02/23/25 06:00
Intake and Output
02/22/25 02/23/25 02/24/25
06:59 06:59 06:59
Intake Total 1356.0 / 1366.4 1209.6 / 1209.6
Output Total 1840 / 2040 4075 / 4075
Balance -484.0 / -673.6 -2865.4 / -2865.4
SaO2 100
Nasal Cannula flow liters per 2
minute
Physical Exam
General: Respiratory Distress (n) and Comfortable
HEENT: Normocephalic, Anicteric and Moist Mucous Membranes
Cardiovascular: Regular Rhythm and Murmur
Respiratory: Wheeze (n), Crackles, Non-Labored Respirations, Accessory Resp Muscle Use (n) and Stridor
GI: Soft, Non Distended and Non Tender
Neurology: Awake, Alert and No Motor Deficits
Skin: Warm, Good Color, Cyanosis (n) and Jaundice (n)
Labs/Micro/Reports
Lab Data
02/23/25 02:41
02/23/25 02:41
[2025-02-23] MEDS: PROTONIX 40 MG PO (08:02)
[2025-02-23] MEDS: PLAVIX 75 MG PO (08:02)
[2025-02-23] MEDS: REGLAN 5 MG IV ×3 (08:02→15:44)
[2025-02-23] MEDS: PACERONE 200 MG PO (08:02)
[2025-02-23] MEDS: HEPARIN 5000 UNITS SC ×2 (08:02→19:57)
[2025-02-23] MEDS: LIPITOR 40 MG PO (08:02)
[2025-02-23] MEDS: LASIX 80 MG IV ×2 (08:05→15:44)
--- NOTE | 2025-02-23 10:05 | W.PN.CARDCBS ---
Today's Communication / Plan
-
Will introduce Entresto this evening and attempt to wean milrinone
Impression / Plan
-
Primary care provider: Keli Gonzalez MD
Primary vegetable farmworker: Lan Estraad MD
Impression:
Admitted with LE edema and left heel wound 02/13/25
Recent admission for acute HF and dysphagia 01/20/2025 until 01/24/2025
Acute on chronic HFrEF
Nausea, improving
ICM EF 20 to 25% by echo 12/19/2024
Severe TR with PAP 63 mmHg
Chronic dysphagia, chronic abdominal pain
CAD s/p CABG with VILLAFUERTE to LAD, saphenous vein to diagonal, saphenous vein to obtuse marginal at [facility] 08/26/24
Postop VF arrest
Patent VILLAFUERTE to LAD, patent SVG to diagonal, patent SVG to OM by postop cardiac cath
s/p Martini Saint Eric SC ICD at [facility] 08/2024
h/o C. difficile postop CABG at [facility]
Anaphylactic aspirin allergy with previous mild allergic reaction during attempted aspirin desensitization therapy at [facility] 08/24/24
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
no options on peripheral angiogram 02/16/25, outpatient eval for Limflow procedure for known obliterative small vessel disease
DM 2
Diabetic neuropathy
Lupus
Hypertension
Dyslipidemia
Echo 07/2024: tricuspid regurgitation increased from trace to severe and systolic pulmonary artery pressure previously was estimated at 25 to 30 mmHg and now is estimated at 63 mmHg.
Echo 12/09/24: finds severely reduced left ventricular systolic function with ejection fraction of 20-25%. Global hypokinesis with septal akinesis. Stage III diastolic dysfunction. Moderate mitral regurgitation, severe tricuspid regurgitation with
estimated pulmonary artery pressure of 63 mmHg.
Right heart catheterization February 21, 2025:
RA pressure 34, RV pressure 64/18, PA pressure 68/29, pulmonary capillary wedge pressure 43. Cardiac output is 1.94 with a cardiac index of 1.11. SVR is 2480 [id number])
Plan:
Regarding decompensated HFrEF, severe tricuspid regurgitation, moderate mitral regurgitation:
After evaluation of right heart catheterization 02/21/25, decision was made to initiate milrinone 02/21/25 @ 0.25 mcg/kg/min.
Remains on milrinone 0.25 mcg/kg/min
Also being diuresed with Lasix, currently 80 mg IV twice daily.
Fluid balance is - 3415 mL
Recorded weight is down to 152 pounds 8 ounces. This is approximately 3 pound weight loss from yesterday February 22, 2025
Blood pressures have improved, systolic blood pressures averaging approximately 110-120 and diastolics averaging approximately 55-65
Creatinine is down to 1.4 from 1.6, potassium is 4.2 and magnesium 2.3
RHC 02/23 AM finds improved systemic vascular resistance down to approximately 1000�1400, improved cardiac index of between 2 and 2.1., Pulmonary artery diastolic pressures ranging between 10 and 30 mm Hg (accuracy?)
This morning she tells me she is feeling better, more energetic and less short of breath than she did yesterday.
Weight is down, fluid balance is negative and filling pressures have improved as has blood pressure and renal function is also significantly improved with a creatinine down to 1, overall clinically she is improving.
Will attempt to wean down milrinone and add oral medications starting with oral vasodilators, then adding beta-morris and ultimately prior to hospital discharge low-dose spironolactone.
- Initiate Entresto 24/26 mg twice daily starting with evening dose 02/23/2025
Hold parameter will be hold if systolic blood pressure less than 90
- Reduce milrinone to half current infusion this evening at time of Entresto initiation
- On morning of 02/24/2025, discontinue milrinone at 7 AM while maintaining Entresto 24/26 mg twice daily with hold parameters
- On morning of 02/25/2025 as long as systolic blood pressures are greater than 90, initiate Coreg 3.125 mg twice daily
Hold parameter will be if systolic blood pressure is less than 90
- Eventually, prior to hospital discharge plan to initiate low-dose spironolactone. Did not tolerate Jardiance (Chronic dysphagia/abd pain)
*With reinitiation of oral guideline directed medical therapy, I would expect at least a slight increase in creatinine of 0.2 or even up to 0.3
- Avoid overdiuresis
Regarding postoperative (CABG Aug 2024) VF arrest single-chamber ICD is in place and she has been maintained on amiodarone with no recent recurrences of sustained ventricular arrhythmias
Maintain amiodarone 200 mg daily
Regarding her vascular disease, she has known lower extremity arterial disease with lower extremity wounds and she did undergo arteriogram with attempted revascularization on February 16, 2025 which was not successful. Currently being managed
medically. She has aspirin allergy.
Maintain Plavix 75 mg daily.
She has had rather chronic GI symptoms, abdominal bloating and discomfort. Has been followed by GI. had upper endoscopy 01/23/2025, but they did not find any obvious findings. Despite attempts at colonoscopy prep it was inadequate and colonoscopy
was not attempted and she was recommended to follow-up as an outpatient.
She remains critically ill on continuous infusion of inotrope. Clinically improved over the past 24 hours.
I discussed this with the patient and her and son at the bedside who acted as university registrar. All of their questions have been asked.
Critical care time 38 min
HPI: Patient came to [facility] ER today with increased LE edema and left heel wound and is now admitted for foot wound and acute HF, cardiology has been consulted. Patient previously admitted to [facility] 08/20/2024 until 08/26/2024 with NSTEMI and MV CAD.
Patient with previous anaphylactic allergy to aspirin and there was an attempt at aspirin desensitization starting on the night of 08/21/2024 and patient had swollen eyes and hand tremors so desensitization therapy was stopped and the family was not
interested in another attempt. It then came to light that the patient's family member is a senior library circulation technician at [facility] and the family requested transfer which was performed on 08/26/2024. As noted above patient had CABG and postop suffered VF
arrest. Post CABG cardiac cath showed patent grafts and patient ultimately had an Martini Saint Eric ICD placed. Patient also had C. difficile postop in the [facility] there were also right toe amputations that were performed all as part of her postop
course. Patient was just admitted to [facility] 01/20/2025 until 01/24/2025 with acute HFrEF and dysphagia, but GI workup was unrevealing in part because colonoscopy prep was inadequate. Left heel wound has been getting worse at home and patient is known
to the vascular surgery service, sounds like at some point she was supposed to get a peripheral angiogram that was delayed due to her last admission. Also, patient missed her cardiology visit on 02/07/2025 and called the next day to let us know that
she was gaining weight and at that time Dr. Estrada increased her Lasix to 80 mg BID, the patient denies any decrease in urine output and LE edema only worsened.
Progress Note - Taker Away
Subjective
Date of Service: February 23, 2025
She sitting up in bed. She is visiting with her and son. They act as interpreters. She describes that she is feeling better, more energetic, less short of breath. She is having no chest pain or dizziness.
Objective
Labs:
02/23/25 02:41
02/23/25 02:41
Labs
Hgb 8.1 g/dL (12.0-16.0) L 02/23/25 02:41
Hct 26.8 % (37.0-47.0) L 02/23/25 02:41
Plt Count 116 10^3/uL (130-400) L 02/23/25 02:41
PT 16.5 Sec (11.4-14.6) H 02/21/25 13:07
INR 1.28 02/21/25 13:07
APTT 32.3 Sec (23.4-35.0) 02/21/25 13:07
Sodium 138 mmol/L (135-145) 02/23/25 02:41
Potassium 3.5 mmol/L (3.5-5.1) 02/23/25 02:41
BUN 30 mg/dl (7-17) H 02/23/25 02:41
Creatinine 1.0 mg/dL (0.6-1.0) 02/23/25 02:41
Glucose 166 mg/dl (70-99) H 02/23/25 02:41
Vital Signs and I&O:
Vital Signs
Temp Pulse Resp BP Pulse Ox
97.3 F 77 25 124/64 100
02/23/25 07:10 02/23/25 08:00 02/23/25 08:00 02/23/25 08:02 02/23/25 08:00
Vital Signs
Temp Pulse Resp BP Pulse Ox
97.3 F 77 25 124/64 100
02/23/25 07:10 02/23/25 08:00 02/23/25 08:00 02/23/25 08:02 02/23/25 08:00
Intake & Output
02/21/25 02/22/25 02/23/25 02/24/25
06:59 06:59 06:59 06:59
Intake Total 480 / 480 1356.0 / 1366.4 1209.6 / 1220.0 31.2 / 31.2
Output Total 1840 / 2040 4075 / 4350 825 / 825
Balance 480 / 480 -484.0 / -673.6 -2865.4 / -3130.0 -793.8 / -793.8
Physical Exam
Physical Exam
On exam she is well-appearing and resting comfortably no acute distress
Swans and catheter right neck
Heart is regular normal S1 and S2, no S3 no S4 is a grade 2/6 apical holosystolic murmur and a 2/6 systolic murmur at the lower left sternal border. PMI is laterally and inferiorly displaced. There are no rubs
Lungs are clear to auscultation bilaterally
Abdomen soft nontender nondistended with normoactive bowel sounds
[2025-02-23] MEDS: DAKIN'S SOLUTION 0.125% 1/4 STRENGTH 473 ML TOPICAL (10:46)
[2025-02-23 11:38] LABS: Glucose - Point of Care 115 mg/dl (70-99)
[2025-02-23 12:03] LABS: Glucose - Point of Care 130 mg/dl (70-99)
--- NOTE | 2025-02-23 12:10 | W.PN.HOSP.TC ---
Today's Communication/Plan
-
Continue to follow
Continue with diuresis
Wean off milrinone per cardiology
Entresto tonight
Assessment / Plan
Assessment / Plan
Physical Exam
General: No Apparent Distress and Comfortable
HEENT: Moist mucous membranes and Atraumatic
Respiratory: much less rales (at bases ); No Wheezes, nasal cannula
Cardiac: S1/S2 and Regular Rhythm
GI: Soft and Non Tender
Genito-urinary: No Cha
Musculoskeletal: No Clubbing remains with B/L LE pitting edema
Skin: Left heel dressing
Neuro: Alert, Oriented and Nonfocal/grossly intact; No Facial Droop or Tremors
Psych: Calm;
64 female presented with worsening leg edema and left heel wound
# Acute on severe chronic HFrEF ? Shock cardiogenic
#Severe TR
#Acute hypoxic respiratory failure
ECHO -11/2024-HFrEF with EF of 20 to 25%, global hypokinesis with septal akinesis, severe TR with PASP elevated to 63, moderate MR.
Daily weight. Strict I &O
Patient with worsening renal failure and not much improvement in weight
Underwent right heart catheterization which showed severely reduced cardiac output and index. Elevated right and left ventricular filling pressure
Wedge pressure 43.
Cardiac index severely reduced 1.11.
Discussed with interventional cardiology.
Plans to continue with [place] catheter
Plan is to wean off milrinone in the next 24 hours
Cardiology correspondence noted
Plan to start Entresto and further goal-directed medical therapy
Currently on Lasix 80 mg twice daily dosing improvement in weight.
Diuresis per nephrology
Monitor in ICU
Appreciate cards input
# Acute kidney injury likely suspected due to cardiorenal syndrome
#Mild hyperkalemia possibly due to losartan in the setting of elevated creatinine
Creatinine continues to uptrend
Received dose of Zaroxolyn 02/20/2025
Status post right heart catheterization as above
Losartan held for now
Creatinine continued to downtrend
Potassium normalized
Nephrology input
# Nausea
Now on low dose Reglan AC and can taper in 1 week
Possible gastritis or Gastroparesis or congestive gastropathy
US did not hsow acute findings.
No fever or leukocytosis, she denies constipation or diarrhea, reports normal BM.
c/w IV PPI
off augmentin.
EGD 01/23/25 showed focal gastritis
c/w PPI , trial of short course of Reglan.
# Left heel ulcerated wound due to DM & PAD
Patient and family decided to come to the hospital due to worsening wound with foul-smelling.
s/p IR for right central line placement.
s/p arteriogram 02/16 showed significant PAD, not amenable to stent placement.
Negative blood culture
Empiric antibiotic
Tylenol for pain
Appreciate ID & Vascular surgery help, f/u in office with Dr Harris.
#Mild thrombocytopenia
Continue to monitor
# Hypokalemia, replaced
#Normocytic anemia-Anemia of chronic disease
Continue to monitor hemoglobin.
Transfuse for hemoglobin less than 7
#Type 2 diabetes mellitus-
Reducing Lantus due to low blood glucose
Holding AC insulin due to hypoglycemia, c/w ISS
POC appropriate
#SLE-
Prior medications on admission, was on prednisone.
#Essential hypertension-
Blood pressure improved.
#Hyperlipidemia-
# h/o V fib arrest s/p ICD
- cont amiodarone
#Peripheral diabetic neuropathy-
#History of GERD-
IV PPI
#CAD with Recent CABG-
She denies chest pain.
Troponin negative X 2
- 08/2024
- cont Plavix.
#Anxiety/depression-
Continue citalopram 20 mg.
DVT prophylaxis-
Continue subcu hep
CODE STATUS-
Full code
PT-Home VN. CM aware.
Discussed with patient son at bedside in details.
Anticipated Discharge: > 48 hours
Subjective/Interval History
-
Date of Service: February 23, 2025
Patient sitting in chair
Having good urinary output
Objective Data
-
Labs:
Laboratory Results
02/23/25
02:41
WBC 6.0
Hgb 8.1 L
Hct 26.8 L
Plt Count 116 L
Sodium 138
Potassium 3.5
Chloride 100
Carbon Dioxide 31 H
BUN 30 H
Creatinine 1.0
Glucose 166 H
Calcium 8.0 L
Vital Signs:
Vital Signs
Temp Pulse Resp BP Pulse Ox
98 F 77 25 124/64 100
02/23/25 11:26 02/23/25 08:00 02/23/25 08:00 02/23/25 08:02 02/23/25 08:00
I&O
02/22/25 02/23/25 02/24/25
06:59 06:59 06:59
Intake Total 1356.0 / 1366.4 1209.6 / 1220.0 41.6 / 41.6
Output Total 1839 / 2039 4075 / 4350 1175 / 1175
Balance -484.0 / -673.6 -2865.4 / -3130.0 -1133.4 / -1133.4
Data Reviewed
-
Total Time Spent with Patient (in minutes): 55
--- NOTE | 2025-02-23 12:38 | PTCARENOTE ---
Pt received from lou BLISS. She is Ox3 and vietnamese speaking although she does understand some welsh. Family currently at bedside. NSR with 1� AVB on tele. Trace LE edema, pulses difficult to find even with a doppler but they are present. R IJ
SWAN in place, Q4 cardiac outputs documented. Pt is currently on 2L NC satting 96%, breath sounds with crackles in the bases. IV Lasix decreased to 80 BID. Cha putting out clear, very dilute urine. L heel wound redressed. Wounds on R foot, and BL
buttock inspected. Milrinone gtt continues through R IJ cordis at 0.25mcg/kg/min.
Order from cardiology to decrease Milrinone to 0.125mcg/kg/min tonight after she receives her first dose of Entresto. Milrinone gtt is to be discontinued by the morning, 02/24 at 0700.
[2025-02-23] MEDS: PRIMACOR 20 MG 100 IV (14:17)
--- NOTE | 2025-02-23 15:26 | W.PN.NEPH.PH ---
Today's Communication / Plan
-
Continue diuresis
Assessment/Plan
-
64-year-old female with history of ischemic cardiomyopathy, severe tricuspid regurgitation, CAD status post CABG August 2024, CHF with an EF of 20%, insulin-dependent diabetes, peripheral vascular disease, diabetic neuropathy and lupus, history of
V-fib arrest status post ICD who has been seen by GI inpatient including most recently early January 2025 for weight loss and dysphagia now back with heart failure and foul-smelling wound. She has been hospitalized multiple times this year for CABG,
pneumonia, toe amputation, abdominal pain, dysphagia and 60 pound weight loss over 6 months since her surgery. She has been admitted since February 13 and underwent lower extremity angiogram for significant PAD and wound.
Underwent right heart catheterization today showed severely reduced cardiac output and index with elevated right and left ventricular filling pressures significant volume overload.
Renal was consulted for acute kidney injury with a creatinine of 1.6
Impression.
Acute kidney injury multifactorial cardiorenal IV contrast exposure baseline creatinine 1.
Ischemic cardiomyopathy ejection fraction 20%. Decompensated
Diabetes
Severe PAD with necrotic left heel.
CAD/ICD
History of cardiac arrest
Plan.
Milrinone continues
IV Lasix 80 mg twice daily
Follow BMP
-
-
Date of Service: February 23, 2025
CC / HPI / ROS
-
Chief Complaint:
Shortness of breath
History of Present Illness:
CHF severe ischemic cardiomyopathy with ANTONIO
ANTONIO/creatinine improved to 1.0
BP stable below
Excellent diuresis with IV Lasix for decompensated heart failure reduced EF
Review of Systems:
No chest pain or shortness of breath
Nonoliguric
Labs
-
Labs:
WBC 6.0 10^3/uL (4.8-10.8) 02/23/25 02:41
RBC 3.53 10^6/uL (4.20-5.40) L 02/23/25 02:41
Hgb 8.1 g/dL (12.0-16.0) L 02/23/25 02:41
Hct 26.8 % (37.0-47.0) L 02/23/25 02:41
Plt Count 116 10^3/uL (130-400) L 02/23/25 02:41
Sodium 138 mmol/L (135-145) 02/23/25 02:41
Potassium 3.5 mmol/L (3.5-5.1) 02/23/25 02:41
Chloride 100 mmol/L (98-107) 02/23/25 02:41
Carbon Dioxide 31 mmol/L (22-30) H 02/23/25 02:41
BUN 30 mg/dl (7-17) H 02/23/25 02:41
Creatinine 1.0 mg/dL (0.6-1.0) 02/23/25 02:41
eGFR > 60.00 02/23/25 02:41
Glucose 166 mg/dl (70-99) H 02/23/25 02:41
Calcium 8.0 mg/dl (8.4-10.2) L 02/23/25 02:41
Phosphorus 4.2 mg/dl (2.5-4.5) 02/21/25 13:07
Saz-U-Ghkklqwoafo Pept 92766 pg/ml 02/17/25 04:42
Albumin 3.5 g/dl (3.5-5.0) 02/21/25 13:07
Physical Exam
-
Vital Signs:
Vital Signs
Temp Pulse Resp BP Pulse Ox
98.5 F 82 17 99/35 96
02/23/25 15:19 02/23/25 15:00 02/23/25 15:00 02/23/25 15:00 02/23/25 14:00
Cardiovascular:: Regular rate and rhythm
Respiratory:: Bilateral: Coarse
Lung Excursion:: Normal
Abdomen:: Nontender and Soft
Bowel Sounds:: Normal
Extremity Edema:: +1: Bilateral:
--- NOTE | 2025-02-23 17:09 | PTCARENOTE ---
Pt reassessed. Pt continues to tolerate diuresis with adequate BPs. SWAN zeroed and flushed, CO and CI calculated. Attempted to wean O2, when taking NC off sat dropped to 86%. PT currently on 1L NC with a sat of 94%. Pt currently comfortable, Call
dobson within reach.
[2025-02-23] MEDS: KCL 40 MEQ PO (17:44)
[2025-02-23] MEDS: NOVOLOG FLEXPEN-MODERATE RESISTANCE 1 UNITS SC (17:45)
[2025-02-23 17:46] LABS: Glucose - Point of Care 199 mg/dl (70-99)
[2025-02-23] MEDS: ENTRESTO 24 MG/26 MG 1 TAB PO (19:57)
--- NOTE | 2025-02-23 20:30 | PTCARENOTE ---
assumed care, pt Occitan speaking but understands Portuguese, Ox3, able to make needs known, denies pain, language line in room, Sinus on the monitor c BBB, doppler pedals, doppler R PT, weak radials, +1 lower extremities, C.O. 4.30 C.I. 2.47, [place] @
48cm, CVP and PAP zeroed, 100% 2L NC, diminished, coarse c crackles @ bases, BSx4, Cha draining yellow output, wounds per worklist, milrinone 0.125mcg/kg/min, R cordis, call dobson within reach, otherwise refer to documentation
[2025-02-23] MEDS: LANTUS 0.07 UNITS SC (22:31)
[2025-02-23] MEDS: NOVOLOG FLEXPEN 3 UNITS SC (22:39)
[2025-02-23 22:41] LABS: Glucose - Point of Care 229 mg/dl (70-99)
[2025-02-24] VITALS (42 sets, daily range): BP systolic 88–124; BP diastolic 48–102; BMI 25.3
--- NOTE | 2025-02-24 00:09 | PTCARENOTE ---
systems reviewed, blood sugar 229 PHOTOGRAPHIC SUPERVISOR notified 3 units given per order, otherwise refer to documentation.
[2025-02-24 04:29] LABS: Hematocrit 28.9 % (37.0-47.0); Hemoglobin 8.7 g/dL (12.0-16.0); Mean Corp Hgb Conc. 30.1 g/dL (33.0-37.0); Mean Corpuscular Volume 76.1 fL (81.0-99.0); Nucleated Red Blood Cells % 0 %; Platelet Count 129 10^3/uL (130-400); Red Cell Dist. Width 17.8 % (11.5-14.5)
[2025-02-24 04:36] LABS: Blood Urea Nitrogen 26 mg/dl (7-17); Calcium 8.0 mg/dl (8.4-10.2); Carbon Dioxide 36 mmol/L (22-30); Chloride 99 mmol/L (98-107); Estimated Creatinine Clearance 59 ml/min; Glucose 161 mg/dl (70-99); Magnesium 1.9 mg/dl (1.6-2.3); Potassium 4.2 mmol/L (3.5-5.1); Sodium 140 mmol/L (135-145); eGFR > 60.00
--- NOTE | 2025-02-24 05:03 | PTCARENOTE ---
systems reviewed, labs sent, CHG bath, otherwise refer to documentation.
--- NOTE | 2025-02-24 07:51 | W.PN.INTV ---
Today's Communication / Plan
Recommendations
Milrinone discontinuation per cardiology
Continue diuresis
Metoprolol added
Entresto started
Maintain PA catheter for an additional 24 hours to monitor cardiac index off milrinone
Assessment
-
64-year-old former smoking female with a history of hypertension, hyperlipidemia, CAD, diabetes, asthma, PAD, C. difficile and CHF who presented with leg edema and a left heel wound noted to have acute on top of chronic heart failure and underwent
cardiac catheterization which revealed significantly elevated pressures and transferred to ICU for milrinone drip, PA catheter and critical care monitoring-[place] operator consulted for CHF/critical care management 02/21/2025.
CHF-reduced EF
Status post cardiac right heart catheterization 02/21/2025
ANTONIO
Nausea
Left heel ulcerated wound due to diabetes and PAD
Hypokalemia
Anemia-normocytic
Hyperglycemia
Hypocalcemia
Conditions present prior to admission:
Hypertension.
Hyperlipidemia.
Diabetes
Diabetic neuropathy
CAD/CABG-08/2024-[facility]
Heart failure reduced -ischemic cardiomyopathy-EF 20%.
History of V-fib arrest status post ICD
Lupus.
PAD.
Asthma.
CABG 08/2024-[facility]. Cholecystectomy. Right toe amputation 08/2024.
Plan
She continues to be critically ill on the milrinone drip
Supplemental oxygen as needed-attempt to wean
Incentive spirometry encouraged
Aspiration precautions
Nebulizers as needed-history of asthma-suspect wheezing on exam is 'cardiac wheezing'-improved on 02/22/2025 and 02/23/25 and 02/24/2025
Cardiology following-correspondence reviewed-reviewed with Dr. Dixon
Right heart catheterization summarized below-significantly elevated right and left sided pressures-PA diastolic trending down-? PA diastolic documented at 12-suspect erroneous-now 30
Diuresis as tolerated-intermittent intravenous Xiupn-wskpw-5.7 L / 24-hour on 02/23/25 and another minus-2.2 L / 24-hour on 02/24/2025
Monitor renal function, electrolytes, intake/output, lower extremity edema and weight
Replace electrolytes as needed
Milrinone drip continues for now per cardiology-will likely be discontinued 02/24/2025
Entresto started
Metoprolol will be restarted
Eventually Aldactone restart if blood pressure tolerates
PA catheter for an additional 24 hours to monitor cardiac index off milrinone
Amiodarone 200 mg daily continues
Metoprolol continues
Acute kidney injury noted-serum creatinine improving in spite of aggressive diuresis-serum creatinine now 0.8
Nephrology evaluation-correspondence reviewed-reduce Lasix
No indication for hemodialysis at this point-would be a poor candidate
Monitor blood sugar
Insulin supplementation as needed
Monitor hemoglobin-trending down-now 8.1 and platelet count 116
Transfuse if needed
DVT prophylaxis-on heparin
GI prophylaxis-pantoprazole
Early nutrition
Early mobilization
Reviewed with at the bedside and updated daughter over the phone at the bedside 02/23/25
Critical care statement: A total of 38 minutes of critical care time was provided for this patient today. This includes management of unstable vital signs, evaluation of the patient at bedside, reviewing the patient's pertinent medical records
including radiographs, Pulmonary artery catheter monitoring,microbiology, laboratory evaluations, and discussion with primary team, consultants, pharmacy, nutrition, physical therapy, case management, charge nurse, critical care nursing, and
respiratory therapy.
Diagnostic data:
Chest x-ray 07/03/2023-mildly elevated right hemidiaphragm
Chest x-ray 01/20/2025- new and progressive left lower lobe pneumonia
Chest x-ray 02/09/2025-stable, linear densities both lung bases likely representing scarring
CT chest abdomen and pelvis 08/20/2024-small bilateral pleural effusions, left thyroid lobe nodule measuring 1.[address] chest 08/21/2024-nodule left lobe thyroid gland measuring 2.1 cm, cardiomegaly, fatty infiltration of liver
Right heart catheterization 201902/21/2025-RA 34, RV 60/18-mean 31, PA 68/29-mean 44, PCWP-43, cardiac output 1.9, cardiac index 1.1, SVR 2480
Subjective Dataa
Subjective Data
Date of Service:
Date of Service: February 24, 2025
Chief Complaint: Warrant Clerk Follow Up and Pulmonary Follow Up
Subjective:
continues to feel better, less short of breath, no chest pain or abdominal pain
Review of Systems
General: Other ( Per HPI)
Objective Data
Data Reviewed
Vital Signs / I&O / Oxygen:
Vital Signs
Temp Pulse Resp BP Pulse Ox
97.9 F 77 16 108/56 100
02/24/25 04:17 02/24/25 06:01 02/24/25 06:01 02/24/25 06:01 02/24/25 06:01
Intake and Output
02/23/25 02/24/25 02/25/25
06:59 06:59 06:59
Intake Total 1209.6 / 1220.0 1182.6 / 1182.6
Output Total 4075 / 4350 4350 / 4350
Balance -2865.4 / -3130.0 -3167.4 / -3167.4
SaO2 100
Nasal Cannula flow liters per 2
minute
Physical Exam
General: Respiratory Distress (n) and Comfortable
HEENT: Normocephalic, Anicteric and Moist Mucous Membranes
Cardiovascular: Regular Rhythm and Murmur
Respiratory: Wheeze (n), Crackles, Non-Labored Respirations, Accessory Resp Muscle Use (n) and Stridor
GI: Soft, Non Distended and Non Tender
Neurology: Awake, Alert and No Motor Deficits
Skin: Warm, Good Color, Cyanosis (n) and Jaundice (n)
Labs/Micro/Reports
Lab Data
02/24/25 03:56
02/24/25 03:56
[2025-02-24] MEDS: DESENEX/MITRAZOL/ZEASORB 1 APPLIC TOPICAL ×2 (08:36→19:25)
[2025-02-24] MEDS: NOVOLOG FLEXPEN-MODERATE RESISTANCE SC ×2 (08:36→12:27)
[2025-02-24] MEDS: HEPARIN 5000 UNITS SC ×2 (08:37→19:25)
[2025-02-24] MEDS: LASIX 80 MG IV (08:38)
[2025-02-24] MEDS: PROTONIX 40 MG PO (08:40)
[2025-02-24] MEDS: PACERONE 200 MG PO (08:40)
[2025-02-24] MEDS: ENTRESTO 24 MG/26 MG 1 TAB PO ×2 (08:40→19:25)
[2025-02-24] MEDS: DAKIN'S SOLUTION 0.125% 1/4 STRENGTH 1 ML TOPICAL (08:41)
[2025-02-24] MEDS: LIPITOR 40 MG PO (08:41)
[2025-02-24] MEDS: PLAVIX 75 MG PO (08:41)
[2025-02-24 08:43] LABS: Glucose - Point of Care 107 mg/dl (70-99)
[2025-02-24] MEDS: REGLAN 5 MG IV ×3 (08:43→18:54)
--- NOTE | 2025-02-24 08:56 | W.PN.NEPH.PH ---
Today's Communication / Plan
-
reduce lasix
Assessment/Plan
-
64-year-old female with history of ischemic cardiomyopathy, severe tricuspid regurgitation, CAD status post CABG August 2024, CHF with an EF of 20%, insulin-dependent diabetes, peripheral vascular disease, diabetic neuropathy and lupus, history of
V-fib arrest status post ICD who has been seen by GI inpatient including most recently early January 2025 for weight loss and dysphagia now back with heart failure and foul-smelling wound. She has been hospitalized multiple times this year for CABG,
pneumonia, toe amputation, abdominal pain, dysphagia and 60 pound weight loss over 6 months since her surgery. She has been admitted since February 13 and underwent lower extremity angiogram for significant PAD and wound.
Underwent right heart catheterization today showed severely reduced cardiac output and index with elevated right and left ventricular filling pressures significant volume overload.
Renal was consulted for acute kidney injury with a creatinine of 1.6
Impression.
Acute kidney injury multifactorial cardiorenal IV contrast exposure baseline creatinine 1.
Ischemic cardiomyopathy ejection fraction 20%. Decompensated
Diabetes
Severe PAD with necrotic left heel.
CAD/ICD
History of cardiac arrest
Plan.
Milrinone off
IV Lasix 80 mg daily, possibly po lasix tomorrow
Follow BMP
watch BP
-
-
Date of Service: February 24, 2025
CC / HPI / ROS
-
Chief Complaint:
Shortness of breath
History of Present Illness:
CHF severe ischemic cardiomyopathy with ANTONIO
ANTONIO/creatinine improved to 0.8
BP stable low
Excellent diuresis with IV Lasix for decompensated heart failure reduced EF
Review of Systems:
No chest pain or shortness of breath
Nonoliguric
Labs
-
Labs:
WBC 4.7 10^3/uL (4.8-10.8) L 02/24/25 03:56
RBC 3.80 10^6/uL (4.20-5.40) L 02/24/25 03:56
Hgb 8.7 g/dL (12.0-16.0) L 02/24/25 03:56
Hct 28.9 % (37.0-47.0) L 02/24/25 03:56
Plt Count 129 10^3/uL (130-400) L 02/24/25 03:56
Sodium 140 mmol/L (135-145) 02/24/25 03:56
Potassium 4.2 mmol/L (3.5-5.1) 02/24/25 03:56
Chloride 99 mmol/L (98-107) 02/24/25 03:56
Carbon Dioxide 36 mmol/L (22-30) H 02/24/25 03:56
BUN 26 mg/dl (7-17) H 02/24/25 03:56
Creatinine 0.8 mg/dL (0.6-1.0) 02/24/25 03:56
eGFR > 60.00 02/24/25 03:56
Glucose 161 mg/dl (70-99) H 02/24/25 03:56
Calcium 8.0 mg/dl (8.4-10.2) L 02/24/25 03:56
Phosphorus 4.2 mg/dl (2.5-4.5) 02/21/25 13:07
Oix-C-Vooiwdylpct Pept 33908 pg/ml 02/17/25 04:42
Albumin 3.5 g/dl (3.5-5.0) 02/21/25 13:07
Physical Exam
-
Vital Signs:
Vital Signs
Temp Pulse Resp BP Pulse Ox
97.9 F 77 16 108/56 100
02/24/25 04:17 02/24/25 06:01 02/24/25 06:01 02/24/25 06:01 02/24/25 06:01
Cardiovascular:: Regular rate and rhythm
Respiratory:: Bilateral: Coarse
Lung Excursion:: Normal
Abdomen:: Nontender and Soft
Bowel Sounds:: Normal
Extremity Edema:: None: Bilateral:
--- NOTE | 2025-02-24 09:03 | PTCARENOTE ---
0700 patient in bed.
08:30 Entresto administered per order. Marrinon off
--- NOTE | 2025-02-24 09:27 | W.PN.CARDCBS ---
Today's Communication / Plan
-
Discontinue milrinone and restart Toprol
Eventually restart Aldactone 12.5 mg daily if blood pressure tolerates
Consider [place] in next 24 hours if cardiac index okay off of milrinone
Continue IV Lasix and consider change to oral Lasix in next 24 to 48 hours
CCT 32 mins
Impression / Plan
-
Primary care provider: Keli Gonzalez MD
Primary laser beam trim operator: Lan Estrada MD
Impression:
Admitted with LE edema and left heel wound 02/13/25
Recent admission for acute HF and dysphagia 01/20/2025 until 01/24/2025
Acute on chronic HFrEF
ICM EF 20 to 25% by echo 12/19/2024
Severe TR with PAP 63 mmHg
Chronic dysphagia, chronic abdominal pain
CAD s/p CABG with VILALFUERTE to LAD, saphenous vein to diagonal, saphenous vein to obtuse marginal at [facility] 08/26/24
Postop VF arrest
Patent VILLAFUERTE to LAD, patent SVG to diagonal, patent SVG to OM by postop cardiac cath
s/p Martini [employer] Eric SC ICD at [facility] 08/2024
h/o C. difficile postop CABG at [facility]
Anaphylactic aspirin allergy with previous mild allergic reaction during attempted aspirin desensitization therapy at [facility] 08/24/24
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
no options on peripheral angiogram 02/16/25, outpatient eval for Limflow procedure for known obliterative small vessel disease
DM 2
Diabetic neuropathy
Lupus
Hypertension
Dyslipidemia
Echo 07/2024: tricuspid regurgitation increased from trace to severe and systolic pulmonary artery pressure previously was estimated at 25 to 30 mmHg and now is estimated at 63 mmHg.
Echo 12/09/24: finds severely reduced left ventricular systolic function with ejection fraction of 20-25%. Global hypokinesis with septal akinesis. Stage III diastolic dysfunction. Moderate mitral regurgitation, severe tricuspid regurgitation with
estimated pulmonary artery pressure of 63 mmHg.
Right heart catheterization February 21, 2025:
RA pressure 34, RV pressure 64/18, PA pressure 68/29, pulmonary capillary wedge pressure 43. Cardiac output is 1.94 with a cardiac index of 1.11. SVR is 2480 [id number](-5)
Right heart 02/24/2025: 58/22, right atrial pressure 16, cardiac index 2.5 on 02/23
Plan:
She seems to be significantly improved
Weight is down possibly 10 pounds in the past 24 hours at 142 pounds on 02/24
Will discontinue milrinone now that Entresto has been started
Renal function has been stable
Consider discontinue [place] in the next 24 hours if cardiac index remains good off of milrinone
Continue IV Lasix for now and consider change to oral Lasix in next 24 to 48 hours
Restart Toprol and hopefully blood pressure tolerates
Eventually resume Aldactone 12.5 mg daily if blood pressure tolerates
Did not tolerate Jardiance with dysphagia and abdominal pain
Continue amiodarone status post arrest in August 2024
Continue Plavix with aspirin allergy
She has had rather chronic GI symptoms, abdominal bloating and discomfort. Has been followed by GI. had upper endoscopy 01/23/2025, but they did not find any obvious findings. Despite attempts at colonoscopy prep it was inadequate and colonoscopy
was not attempted and she was recommended to follow-up as an outpatient.
HPI: Patient came to [facility] ER today with increased LE edema and left heel wound and is now admitted for foot wound and acute HF, cardiology has been consulted. Patient previously admitted to [facility] 08/20/2024 until 08/26/2024 with NSTEMI and MV CAD.
Patient with previous anaphylactic allergy to aspirin and there was an attempt at aspirin desensitization starting on the night of 08/21/2024 and patient had swollen eyes and hand tremors so desensitization therapy was stopped and the family was not
interested in another attempt. It then came to light that the patient's family member is a senior outer diameter technician at [facility] and the family requested transfer which was performed on 08/26/2024. As noted above patient had CABG and postop suffered VF
arrest. Post CABG cardiac cath showed patent grafts and patient ultimately had an Martini Saint Eric ICD placed. Patient also had C. difficile postop in the [facility] there were also right toe amputations that were performed all as part of her postop
course. Patient was just admitted to [facility] 01/20/2025 until 01/24/2025 with acute HFrEF and dysphagia, but GI workup was unrevealing in part because colonoscopy prep was inadequate. Left heel wound has been getting worse at home and patient is known
to the vascular surgery service, sounds like at some point she was supposed to get a peripheral angiogram that was delayed due to her last admission. Also, patient missed her cardiology visit on 02/07/2025 and called the next day to let us know that
she was gaining weight and at that time Dr. Estrada increased her Lasix to 80 mg BID, the patient denies any decrease in urine output and LE edema only worsened.
Progress Note - Research Program Assistant
Subjective
Date of Service: February 24, 2025
No complaints
Objective
Labs:
02/24/25 03:56
02/24/25 03:56
Labs
Hgb 8.7 g/dL (12.0-16.0) L 02/24/25 03:56
Hct 28.9 % (37.0-47.0) L 02/24/25 03:56
Plt Count 129 10^3/uL (130-400) L 02/24/25 03:56
PT 16.5 Sec (11.4-14.6) H 02/21/25 13:07
INR 1.28 02/21/25 13:07
APTT 32.3 Sec (23.4-35.0) 02/21/25 13:07
Sodium 140 mmol/L (135-145) 02/24/25 03:56
Potassium 4.2 mmol/L (3.5-5.1) 02/24/25 03:56
BUN 26 mg/dl (7-17) H 02/24/25 03:56
Creatinine 0.8 mg/dL (0.6-1.0) 02/24/25 03:56
Glucose 161 mg/dl (70-99) H 02/24/25 03:56
Vital Signs and I&O:
Vital Signs
Temp Pulse Resp BP Pulse Ox
97.9 F 84 16 101/84 100
02/24/25 04:17 02/24/25 08:40 02/24/25 06:01 02/24/25 08:40 02/24/25 06:01
Vital Signs
Temp Pulse Resp BP Pulse Ox
97.9 F 84 16 101/84 100
02/24/25 04:17 02/24/25 08:40 02/24/25 06:01 02/24/25 08:40 02/24/25 06:01
Intake & Output
02/22/25 02/23/25 02/24/25 02/25/25
06:59 06:59 06:59 06:59
Intake Total 1356.0 / 1366.4 1209.6 / 1220.0 1182.6 / 1190.3 15.4 / 15.4
Output Total 1839 / 2039 4075 / 4350 4350 / 4460 220 / 220
Balance -484.0 / -673.6 -2865.4 / -3130.0 -3167.4 / -3269.7 -204.6 / -204.6
Physical Exam
Physical Exam
General: Well developed, well nourished in NAD.
Neck: Supple, no JVD, HJR, carotids +2 B/L, no bruits bilaterally.
Heart: Non displaced PMI, RRR, no murmurs, No S3, S4, no rubs.
Lungs: Scattered rhonchi
Abdomen: Normal bowel sounds, soft, non-tender, non-distended.
Extremities: No clubbing, cyanosis or edema bilaterally.
Neuro: Grossly nonfocal, awake, alert and oriented x3.
[2025-02-24] MEDS: LASIX IV (10:21)
--- NOTE | 2025-02-24 10:21 | PTCARENOTE ---
Per Dr Keen Lasameya dose 16:00 held
--- NOTE | 2025-02-24 10:49 | W.PN.HOSP.TC ---
Today's Communication/Plan
-
off milirone
IV lasix
monitor CI/CO
Toprol started
Assessment / Plan
Assessment / Plan
Physical Exam
General: No Apparent Distress and Comfortable
HEENT: Moist mucous membranes and Atraumatic, SWAN catheter noted
Respiratory: much less rales (at bases ); No Wheezes, nasal cannula
Cardiac: S1/S2 and Regular Rhythm
GI: Soft and Non Tender
Musculoskeletal: No Clubbing remains with B/L LE pitting edema improving
Skin: Left heel dressing
Neuro: Alert, Oriented and Nonfocal/grossly intact; No Facial Droop or Tremors
Psych: Calm;
64 female presented with worsening leg edema and left heel wound
# Acute on severe chronic HFrEF
#Severe TR
#Acute hypoxic respiratory failure
ECHO -11/2024-HFrEF with EF of 20 to 25%, global hypokinesis with septal akinesis, severe TR with PASP elevated to 63, moderate MR.
Daily weight. Strict I &O
Patient with worsening renal failure and not much improvement in weight
Underwent right heart catheterization which showed severely reduced cardiac output and index. Elevated right and left ventricular filling pressure
Wedge pressure 43.
Cardiac index severely reduced 1.11.
Discussed with interventional cardiology.
Plans to continue with Ovid-Susy catheter
off milrinone. Monitor cardiac index. Plan to possible remove swan in next 24h
Cardiology correspondence noted
Plan to start Entresto and further goal-directed medical therapy. Toprol 25mg started
Currently on Lasix 80 mg twice daily dosing improvement in weight.
Diuresis per nephrology
Monitor in ICU
losing weight
Appreciate cards input
# Acute kidney injury likely suspected due to cardiorenal syndrome
#Mild hyperkalemia possibly due to losartan in the setting of elevated creatinine
Creatinine continues to uptrend
Received dose of Zaroxolyn 02/20/2025
Status post right heart catheterization as above
Creatinine continued to downtrend
Potassium normalized
Nephrology input
# Nausea
Now on low dose Reglan AC and can taper in 1 week
Possible gastritis or Gastroparesis or congestive gastropathy
US did not hsow acute findings.
No fever or leukocytosis, she denies constipation or diarrhea, reports normal BM.
c/w IV PPI
off augmentin.
EGD 01/23/25 showed focal gastritis
c/w PPI , trial of short course of Reglan.
# Left heel ulcerated wound due to DM & PAD
Patient and family decided to come to the hospital due to worsening wound with foul-smelling.
s/p IR for right central line placement.
s/p arteriogram 02/16 showed significant PAD, not amenable to stent placement.
Negative blood culture
Empiric antibiotic
Tylenol for pain
Appreciate ID & Vascular surgery help, f/u in office with Dr Harris.
#Mild thrombocytopenia
Continue to monitor
# Hypokalemia, replaced
#Normocytic anemia-Anemia of chronic disease
Continue to monitor hemoglobin.
Transfuse for hemoglobin less than 7
#Type 2 diabetes mellitus-
Reducing Lantus due to low blood glucose
Holding AC insulin due to hypoglycemia, c/w ISS
POC appropriate
#SLE-
Prior medications on admission, was on prednisone.
#Essential hypertension-
Blood pressure improved.
#Hyperlipidemia-
# h/o V fib arrest s/p ICD
- cont amiodarone
#Peripheral diabetic neuropathy-
#History of GERD-
IV PPI
#CAD with Recent CABG-
She denies chest pain.
Troponin negative X 2
- 08/2024
- cont Plavix.
#Anxiety/depression-
Continue citalopram 20 mg.
DVT prophylaxis-
Continue subcu hep
CODE STATUS-
Full code
PT-Home VN. CM aware.
Discussed with patient son at bedside in details on 02/23/25
Anticipated Discharge: > 48 hours
Subjective/Interval History
-
Date of Service: February 24, 2025
off milirone
losing weight
denies cp or sob
Objective Data
-
Labs:
Laboratory Results
02/24/25
03:56
WBC 4.7 L
Hgb 8.7 L
Hct 28.9 L
Plt Count 129 L
Sodium 140
Potassium 4.2
Chloride 99
Carbon Dioxide 36 H
BUN 26 H
Creatinine 0.8
Glucose 161 H
Calcium 8.0 L
Vital Signs:
Vital Signs
Temp Pulse Resp BP Pulse Ox
97.9 F 84 16 101/84 100
02/24/25 04:17 02/24/25 08:40 02/24/25 06:01 02/24/25 08:40 02/24/25 06:01
I&O
02/23/25 02/24/25 02/25/25
06:59 06:59 06:59
Intake Total 1209.6 / 1220.0 1182.6 / 1190.3 15.4 / 15.4
Output Total 4075 / 4350 4350 / 4460 220 / 220
Balance -2865.4 / -3130.0 -3167.4 / -3269.7 -204.6 / -204.6
[2025-02-24] MEDS: TOPROL XL 25 MG PO (12:26)
[2025-02-24 12:31] LABS: Glucose - Point of Care 142 mg/dl (70-99)
[2025-02-24 18:07] LABS: Glucose - Point of Care 181 mg/dl (70-99)
[2025-02-24] MEDS: NOVOLOG FLEXPEN-MODERATE RESISTANCE 1 UNITS SC ×2 (18:55→21:19)
--- NOTE | 2025-02-24 19:15 | PTCARENOTE ---
Assumed care of pt. approx 1899.
PA catheter in place, hemodynamically stable, appropriate waveforms. CI/CO completed per order set.
2L N/C maintaining own airway. 97 sp02.
Cha in place diuresing per nephro.
Wounds reviewed w. off going RN.
[2025-02-24] MEDS: LANTUS 0.07 UNITS SC (21:19)
[2025-02-24 21:20] LABS: Glucose - Point of Care 188 mg/dl (70-99)
[2025-02-24] MEDS: NEURONTIN 400 MG PO (22:31)
[2025-02-25] VITALS (27 sets, daily range): BP systolic 87–117; BP diastolic 43–93; BMI 25.1
--- NOTE | 2025-02-25 00:01 | PTCARENOTE ---
CO/CI completed.
No change in assessment, hemodynamically stable.
--- NOTE | 2025-02-25 00:08 | PTCARENOTE ---
ICU PERLA notified of decreasing maps.
[2025-02-25 04:56] LABS: Blood Urea Nitrogen 23 mg/dl (7-17); Calcium 7.4 mg/dl (8.4-10.2); Carbon Dioxide 36 mmol/L (22-30); Chloride 99 mmol/L (98-107); Estimated Creatinine Clearance 67 ml/min; Glucose 144 mg/dl (70-99); Potassium 3.7 mmol/L (3.5-5.1); Sodium 138 mmol/L (135-145); eGFR > 60.00
[2025-02-25 04:58] LABS: Hematocrit 30.2 % (37.0-47.0); Hemoglobin 9.0 g/dL (12.0-16.0); Mean Corp Hgb Conc. 29.8 g/dL (33.0-37.0); Mean Corpuscular Volume 76.3 fL (81.0-99.0); Nucleated Red Blood Cells % 0 %; Platelet Count 142 10^3/uL (130-400); Red Cell Dist. Width 17.4 % (11.5-14.5)
--- NOTE | 2025-02-25 05:07 | PTCARENOTE ---
No change in assessment.
--- NOTE | 2025-02-25 07:56 | W.PN.INTV ---
Today's Communication / Plan
Recommendations
Wean oxygen
Pulmonary artery catheter parameters reviewed-significant reduction in PA diastolic, improvement in cardiac output/cardiac index
Possible removal of PA catheter
Decrease diuresis
If PA catheter removed then could be transferred out of ICU-assistant sales manager will sign off-call pulmonary if respiratory issues arise
Assessment
-
64-year-old former smoking female with a history of hypertension, hyperlipidemia, CAD, diabetes, asthma, PAD, C. difficile and CHF who presented with leg edema and a left heel wound noted to have acute on top of chronic heart failure and underwent
cardiac catheterization which revealed significantly elevated pressures and transferred to ICU for milrinone drip, PA catheter and critical care monitoring-assistant sales manager consulted for CHF/critical care management 02/21/2025.
CHF-reduced EF
Status post cardiac right heart catheterization 02/21/2025
ANTONIO
Nausea
Left heel ulcerated wound due to diabetes and PAD
Hypokalemia
Anemia-normocytic
Hyperglycemia
Hypocalcemia
Conditions present prior to admission:
Hypertension.
Hyperlipidemia.
Diabetes
Diabetic neuropathy
CAD/CABG-08/2024-[facility]
Heart failure reduced -ischemic cardiomyopathy-EF 20%.
History of V-fib arrest status post ICD
Lupus.
PAD.
Asthma.
CABG 08/2024-[facility]. Cholecystectomy. Right toe amputation 08/2024.
Plan
Hemodynamics have improved-milrinone drip has been discontinued
Supplemental oxygen as needed-attempt to wean
Incentive spirometry encouraged
Aspiration precautions
Nebulizers as needed-history of asthma-suspect wheezing on exam is 'cardiac wheezing'-improved on 02/22/2025 and 02/23/25 and 02/24/2025 and no wheezing noted 02/25/2025
Cardiology following-correspondence reviewed-reviewed with Dr. Dixon
Right heart catheterization summarized below-significantly elevated right and left sided pressures-PA diastolic trending down
Diuresis as tolerated-intermittent intravenous Yberq-yqufa-2.7 L / 24-hour on 02/23/25 and another minus-2.2 L / 24-hour on 02/24/2025 and -1.6 L on 02/25/2025
Monitor renal function, electrolytes, intake/output, lower extremity edema and weight
Replace electrolytes as needed
Milrinone drip discontinued 02/24/2025
Entresto started
Metoprolol restarted
Eventually Aldactone restart if blood pressure tolerates
PA catheter will likely be discontinued 02/25/2025
Amiodarone 200 mg daily continues
Metoprolol continues
Acute kidney injury noted-serum creatinine improving in spite of aggressive diuresis-serum creatinine now 0.8
Nephrology evaluation-correspondence reviewed-reduce Lasix-changed to oral Lasix 02/25/2025
No indication for hemodialysis at this point-would be a poor candidate
Monitor blood sugar
Insulin supplementation as needed
Monitor hemoglobin-trending down-now 8.1 and platelet count 116
Transfuse if needed
DVT prophylaxis-on heparin
GI prophylaxis-pantoprazole
Early nutrition
Early mobilization
PA catheter removed then patient could be transferred out of ICU-assistant sales manager would sign off at that point-call pulmonary if respiratory issues arise
Reviewed with at the bedside and updated daughter over the phone at the bedside 02/23/25
Critical care statement: A total of 35 minutes of critical care time was provided for this patient today. This includes management of unstable vital signs, evaluation of the patient at bedside, reviewing the patient's pertinent medical records
including radiographs, Pulmonary artery catheter monitoring,microbiology, laboratory evaluations, and discussion with primary team, consultants, pharmacy, nutrition, physical therapy, case management, charge nurse, critical care nursing, and
respiratory therapy.
Diagnostic data:
Chest x-ray 07/03/2023-mildly elevated right hemidiaphragm
Chest x-ray 01/20/2025- new and progressive left lower lobe pneumonia
Chest x-ray 02/09/2025-stable, linear densities both lung bases likely representing scarring
CT chest abdomen and pelvis 08/20/2024-small bilateral pleural effusions, left thyroid lobe nodule measuring 1.[address] chest 08/21/2024-nodule left lobe thyroid gland measuring 2.1 cm, cardiomegaly, fatty infiltration of liver
Right heart catheterization 2019 12-02/21/2025-RA 34, RV 60/18-mean 31, PA 68/29-mean 44, PCWP-43, cardiac output 1.9, cardiac index 1.1, SVR 2480
Subjective Dataa
Subjective Data
Date of Service:
Date of Service: February 25, 2025
Chief Complaint: [employer] Follow Up and Pulmonary Follow Up
Subjective:
continues to feel better, less short of breath, no wheezing, no chest pain or abdominal pain
Review of Systems
General: Other ( Per HPI)
Objective Data
Data Reviewed
Vital Signs / I&O / Oxygen:
Vital Signs
Temp Pulse Resp BP Pulse Ox
98 F 69 23 94/48 96
02/25/25 07:20 02/25/25 05:00 02/25/25 05:00 02/25/25 05:00 02/25/25 04:55
Intake and Output
02/24/25 02/25/25 02/26/25
06:59 06:59 06:59
Intake Total 1182.6 / 1190.3 500.4 / 500.4
Output Total 4350 / 4460 2430 / 2430
Balance -3167.4 / -3269.7 -1929.6 / -1929.6
SaO2 96
Nasal Cannula flow liters per 2
minute
Physical Exam
General: Respiratory Distress (n) and Comfortable
HEENT: Normocephalic, Anicteric and Moist Mucous Membranes
Cardiovascular: Regular Rhythm and Murmur
Respiratory: Wheeze (n), Crackles, Non-Labored Respirations, Accessory Resp Muscle Use (n) and Stridor
GI: Soft, Non Distended and Non Tender
Neurology: Awake, Alert and No Motor Deficits
Skin: Warm, Good Color, Cyanosis (n) and Jaundice (n)
Labs/Micro/Reports
Lab Data
02/25/25 04:20
02/25/25 04:20
--- NOTE | 2025-02-25 08:56 | W.PN.NEPH.PH ---
Today's Communication / Plan
-
po lasix
Assessment/Plan
-
64-year-old female with history of ischemic cardiomyopathy, severe tricuspid regurgitation, CAD status post CABG August 2024, CHF with an EF of 20%, insulin-dependent diabetes, peripheral vascular disease, diabetic neuropathy and lupus, history of
V-fib arrest status post ICD who has been seen by GI inpatient including most recently early January 2025 for weight loss and dysphagia now back with heart failure and foul-smelling wound. She has been hospitalized multiple times this year for CABG,
pneumonia, toe amputation, abdominal pain, dysphagia and 60 pound weight loss over 6 months since her surgery. She has been admitted since February 13 and underwent lower extremity angiogram for significant PAD and wound.
Underwent right heart catheterization today showed severely reduced cardiac output and index with elevated right and left ventricular filling pressures significant volume overload.
Renal was consulted for acute kidney injury with a creatinine of 1.6
Impression.
Acute kidney injury multifactorial cardiorenal IV contrast exposure baseline creatinine 1.
Ischemic cardiomyopathy ejection fraction 20%. Decompensated
Diabetes
Severe PAD with necrotic left heel.
CAD/ICD
History of cardiac arrest
Plan.
Milrinone off
swan numbers good, eventual removal swan
convert o po lasix today
can dc [place]
Follow BMP
watch BP
-
-
Date of Service: February 25, 2025
CC / HPI / ROS
-
Chief Complaint:
Shortness of breath
History of Present Illness:
CHF severe ischemic cardiomyopathy with ANTONIO
ANTONIO/creatinine stable 0.7
BP stable lower
Excellent diuresis with IV Lasix for decompensated heart failure reduced EF
Review of Systems:
No chest pain or shortness of breath
Nonoliguric
Labs
-
Labs:
WBC 4.6 10^3/uL (4.8-10.8) L 02/25/25 04:20
RBC 3.96 10^6/uL (4.20-5.40) L 02/25/25 04:20
Hgb 9.0 g/dL (12.0-16.0) L 02/25/25 04:20
Hct 30.2 % (37.0-47.0) L 02/25/25 04:20
Plt Count 142 10^3/uL (130-400) 02/25/25 04:20
Sodium 138 mmol/L (135-145) 02/25/25 04:20
Potassium 3.7 mmol/L (3.5-5.1) 02/25/25 04:20
Chloride 99 mmol/L (98-107) 02/25/25 04:20
Carbon Dioxide 36 mmol/L (22-30) H 02/25/25 04:20
BUN 23 mg/dl (7-17) H 02/25/25 04:20
Creatinine 0.7 mg/dL (0.6-1.0) 02/25/25 04:20
eGFR > 60.00 02/25/25 04:20
Glucose 144 mg/dl (70-99) H 02/25/25 04:20
Calcium 7.4 mg/dl (8.4-10.2) L 02/25/25 04:20
Phosphorus 4.2 mg/dl (2.5-4.5) 02/21/25 13:07
Wmc-Q-Ugjahhbshjp Pept 73487 pg/ml 02/17/25 04:42
Albumin 3.5 g/dl (3.5-5.0) 02/21/25 13:07
Physical Exam
-
Vital Signs:
Vital Signs
Temp Pulse Resp BP Pulse Ox
98 F 69 23 94/48 96
02/25/25 07:20 02/25/25 05:00 02/25/25 05:00 02/25/25 05:00 02/25/25 04:55
Cardiovascular:: Regular rate and rhythm
Respiratory:: Bilateral: CTA
Lung Excursion:: Normal
Abdomen:: Nontender and Soft
Bowel Sounds:: Normal
Extremity Edema:: None: Bilateral:
[2025-02-25] MEDS: ENTRESTO 24 MG/26 MG 1 TAB PO ×2 (09:00→19:44)
[2025-02-25] MEDS: TOPROL XL 25 MG PO (09:00)
[2025-02-25] MEDS: PLAVIX 75 MG PO (09:00)
[2025-02-25] MEDS: PROTONIX 40 MG PO (09:00)
[2025-02-25] MEDS: LASIX 80 MG PO ×2 (09:00→09:23)
[2025-02-25] MEDS: PACERONE 200 MG PO (09:01)
[2025-02-25] MEDS: HEPARIN 5000 UNITS SC ×2 (09:01→19:45)
[2025-02-25] MEDS: LIPITOR 40 MG PO (09:01)
[2025-02-25] MEDS: DAKIN'S SOLUTION 0.125% 1/4 STRENGTH 1 ML TOPICAL (09:02)
[2025-02-25] MEDS: DESENEX/MITRAZOL/ZEASORB 1 APPLIC TOPICAL ×2 (09:02→19:44)
[2025-02-25 09:49] LABS: Glucose - Point of Care 163 mg/dl (70-99)
--- NOTE | 2025-02-25 10:13 | W.PN.CARDCBS ---
Today's Communication / Plan
-
Cardiovascular stable and likely at dry weight
Nephrology change Lasix to p.o.
Will pull [place] and introducer
Eventual Aldactone if blood pressure tolerates
Impression / Plan
-
Primary care provider: Keli Gonzalez MD
Primary motor electrician: Lan Estrada MD
Impression:
Admitted with LE edema and left heel wound 02/13/25
Recent admission for acute HF and dysphagia 01/20/2025 until 01/24/2025
Acute on chronic HFrEF
ICM EF 20 to 25% by echo 12/19/2024
Severe TR with PAP 63 mmHg
Chronic dysphagia, chronic abdominal pain
CAD s/p CABG with VILLAFUERTE to LAD, saphenous vein to diagonal, saphenous vein to obtuse marginal at [facility] 08/26/24
Postop VF arrest
Patent VILLAFUERTE to LAD, patent SVG to diagonal, patent SVG to OM by postop cardiac cath
s/p Martini Saint Eric SC ICD at [facility] 08/2024
h/o C. difficile postop CABG at [facility]
Anaphylactic aspirin allergy with previous mild allergic reaction during attempted aspirin desensitization therapy at [facility] 08/24/24
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
no options on peripheral angiogram 02/16/25, outpatient eval for Limflow procedure for known obliterative small vessel disease
DM 2
Diabetic neuropathy
Lupus
Hypertension
Dyslipidemia
Echo 07/2024: tricuspid regurgitation increased from trace to severe and systolic pulmonary artery pressure previously was estimated at 25 to 30 mmHg and now is estimated at 63 mmHg.
Echo 12/09/24: finds severely reduced left ventricular systolic function with ejection fraction of 20-25%. Global hypokinesis with septal akinesis. Stage III diastolic dysfunction. Moderate mitral regurgitation, severe tricuspid regurgitation with
estimated pulmonary artery pressure of 63 mmHg.
Right heart catheterization February 21, 2025:
RA pressure 34, RV pressure 64/18, PA pressure 68/29, pulmonary capillary wedge pressure 43. Cardiac output is 1.94 with a cardiac index of 1.11. SVR is 2480 ppzwa-zue-kg(-5)
Right heart 02/24/2025: 58/22, right atrial pressure 16, cardiac index 2.5 on 02/23
Plan:
She is tolerating discontinuing milrinone
Cardiac index was 2.0 on 02/24
Will pull [place] and introducer sheath
Nephrology change Lasix to p.o.
Continue Toprol and Entresto.
Eventually resume Aldactone 12.5 mg daily if blood pressure tolerates
Did not tolerate Jardiance with dysphagia and abdominal pain
Continue amiodarone status post arrest in August 2024
Continue Plavix with aspirin allergy
She has had chronic GI symptoms, abdominal bloating and discomfort. Has been followed by GI. had upper endoscopy 01/23/2025, but they did not find any obvious findings. Despite attempts at colonoscopy prep it was inadequate and colonoscopy was not
attempted and she was recommended to follow-up as an outpatient.
Discussed with nursing and primary service as well as at bedside
HPI: Patient came to [facility] ER today with increased LE edema and left heel wound and is now admitted for foot wound and acute HF, cardiology has been consulted. Patient previously admitted to [facility] 08/20/2024 until 08/26/2024 with NSTEMI and MV CAD.
Patient with previous anaphylactic allergy to aspirin and there was an attempt at aspirin desensitization starting on the night of 08/21/2024 and patient had swollen eyes and hand tremors so desensitization therapy was stopped and the family was not
interested in another attempt. It then came to light that the patient's family member is a senior dealer support technician at [facility] and the family requested transfer which was performed on 08/26/2024. As noted above patient had CABG and postop suffered VF
arrest. Post CABG cardiac cath showed patent grafts and patient ultimately had an Martini Saint Eric ICD placed. [facility] also right toe amputations that were performed all as part of her postop
course. Patient was just admitted to [facility] 01/20/2025 until 01/24/2025 with acute HFrEF and dysphagia, but GI workup was unrevealing in part because colonoscopy prep was inadequate. Left heel wound has been getting worse at home and patient is known
to the vascular surgery service, sounds like at some point she was supposed to get a peripheral angiogram that was delayed due to her last admission. Also, patient missed her cardiology visit on 02/07/2025 and called the next day to let us know that
she was gaining weight and at that time Dr. Estrada increased her Lasix to 80 mg BID, the patient denies any decrease in urine output and LE edema only worsened.
Progress Note - Leasing Assistant
Subjective
Date of Service: February 25, 2025
No chest pain or shortness of breath
Objective
Labs:
02/25/25 04:20
02/25/25 04:20
Labs
Hgb 9.0 g/dL (12.0-16.0) L 02/25/25 04:20
Hct 30.2 % (37.0-47.0) L 02/25/25 04:20
Plt Count 142 10^3/uL (130-400) 02/25/25 04:20
PT 16.5 Sec (11.4-14.6) H 02/21/25 13:07
INR 1.28 02/21/25 13:07
APTT 32.3 Sec (23.4-35.0) 02/21/25 13:07
Sodium 138 mmol/L (135-145) 02/25/25 04:20
Potassium 3.7 mmol/L (3.5-5.1) 02/25/25 04:20
BUN 23 mg/dl (7-17) H 02/25/25 04:20
Creatinine 0.7 mg/dL (0.6-1.0) 02/25/25 04:20
Glucose 144 mg/dl (70-99) H 02/25/25 04:20
Vital Signs and I&O:
Vital Signs
Temp Pulse Resp BP Pulse Ox
98 F 73 23 103/51 96
02/25/25 07:20 02/25/25 09:23 02/25/25 05:00 02/25/25 09:23 02/25/25 04:55
Vital Signs
Temp Pulse Resp BP Pulse Ox
98 F 73 23 103/51 96
02/25/25 07:20 02/25/25 09:23 02/25/25 05:00 02/25/25 09:23 02/25/25 04:55
Intake & Output
02/23/25 02/24/25 02/25/25 02/26/25
06:59 06:59 06:59 06:59
Intake Total 1209.6 / 1220.0 1182.6 / 1190.3 500.4 / 500.4
Output Total 4075 / 4350 4350 / 4460 2430 / 2430
Balance -2865.4 / -3130.0 -3167.4 / -3269.7 -1929.6 / -1929.6
Physical Exam
Physical Exam
General: Well developed, well nourished in NAD.
Neck: Supple, no JVD, HJR, carotids +2 B/L, no bruits bilaterally.
Heart: Non displaced PMI, RRR, no murmurs, No S3, S4, no rubs.
Lungs: Scattered rhonchi at the bases
Extremities: No clubbing, cyanosis or edema bilaterally.
Neuro: Grossly nonfocal, awake, alert and oriented x3.
--- NOTE | 2025-02-25 10:51 | PTCARENOTE ---
Right Henriette line removed by PA , dressing applied , no bleeding . patient transfer to chair one person assist. denies SOB, dizziness, chest pain. OOB chair. call dobson within reach
[2025-02-25] MEDS: NOVOLOG FLEXPEN-MODERATE RESISTANCE 1 UNITS SC (12:06)
[2025-02-25] MEDS: NOVOLOG FLEXPEN-MODERATE RESISTANCE SC (12:06)
[2025-02-25 12:16] LABS: Glucose - Point of Care 181 mg/dl (70-99)
--- NOTE | 2025-02-25 12:34 | W.PN.HOSP.TC ---
Today's Communication/Plan
-
Plan to remove Quinlan catheter
Monitor blood pressure closely
Continue with goal-directed medical therapy
Continue with Lasix
Assessment / Plan
Assessment / Plan
Physical Exam
General: No Apparent Distress and Comfortable
HEENT: Moist mucous membranes and Atraumatic, SWAN catheter noted
Respiratory: much less rales (at bases ); No Wheezes, nasal cannula
Cardiac: S1/S2 and Regular Rhythm
GI: Soft and Non Tender
Musculoskeletal: No Clubbing remains with B/L LE pitting edema improving
Skin: Left heel dressing
Neuro: Alert, Oriented and Nonfocal/grossly intact; No Facial Droop or Tremors
Psych: Calm;
64 female presented with worsening leg edema and left heel wound
# Acute on severe chronic HFrEF
#Severe TR
#Acute hypoxic respiratory failure
ECHO -11/2024-HFrEF with EF of 20 to 25%, global hypokinesis with septal akinesis, severe TR with PASP elevated to 63, moderate MR.
Daily weight. Strict I &O
Patient with worsening renal failure and not much improvement in weight
Underwent right heart catheterization which showed severely reduced cardiac output and index. Elevated right and left ventricular filling pressure
Wedge pressure 43.
Cardiac index severely reduced 1.11.
Discussed with interventional cardiology.
Plans to continue with Quinlan-Susy catheter
off milrinone. Improvement in cardiac index. Plans to remove Quinlan catheter today.
Cardiology correspondence noted
Patient was started on Entresto and Toprol. Plan to add Aldactone if blood pressure can tolerate. Did have episode of soft blood pressure yesterday.
Currently on Lasix 80 mg p.o. daily dosing improvement in weight.
Diuresis per nephrology
Monitor in ICU
losing weight
Appreciate cards input
# Acute kidney injury likely suspected due to cardiorenal syndrome
#Mild hyperkalemia possibly due to losartan in the setting of elevated creatinine
Creatinine continues to uptrend
Received dose of Zaroxolyn 02/20/2025
Status post right heart catheterization as above
Creatinine continued to downtrend
Potassium normalized
Nephrology input
# Nausea
Now on low dose Reglan AC and can taper in 1 week
Possible gastritis or Gastroparesis or congestive gastropathy
US did not hsow acute findings.
No fever or leukocytosis, she denies constipation or diarrhea, reports normal BM.
c/w IV PPI
off augmentin.
EGD 01/23/25 showed focal gastritis
c/w PPI , trial of short course of Reglan. Will complete 7-day course.
# Left heel ulcerated wound due to DM & PAD
Patient and family decided to come to the hospital due to worsening wound with foul-smelling.
s/p IR for right central line placement.
s/p arteriogram 02/16 showed significant PAD, not amenable to stent placement.
Negative blood culture
Empiric antibiotic
Tylenol for pain
Appreciate ID & Vascular surgery help, f/u in office with Dr Harris.
#Mild thrombocytopenia
Continue to monitor
Platelets improved and stabilized 142.
# Hypokalemia, replaced
#Normocytic anemia-Anemia of chronic disease
Continue to monitor hemoglobin.
Transfuse for hemoglobin less than 7
#Type 2 diabetes mellitus-
Reducing Lantus due to low blood glucose
Holding AC insulin due to hypoglycemia, c/w ISS
POC appropriate
#SLE-
Prior medications on admission, was on prednisone.
#Essential hypertension-
Blood pressure improved.
#Hyperlipidemia-
# h/o V fib arrest s/p ICD
- cont amiodarone
#Peripheral diabetic neuropathy-
#History of GERD-
IV PPI
#CAD with Recent CABG-
She denies chest pain.
Troponin negative X 2
- 08/2024
- cont Plavix.
#Anxiety/depression-
Continue citalopram 20 mg.
DVT prophylaxis-
Continue subcu hep
CODE STATUS-
Full code
PT-Home VN. CM aware.
Discussed with cardiology
Discussed with patient spouse at bedside in detail
Anticipated Discharge: > 48 hours
Subjective/Interval History
-
Date of Service: February 25, 2025
Patient with significant improvement in cardiac output/CI
IV Lasix transition to oral
Objective Data
-
Labs:
Laboratory Results
02/25/25
04:20
WBC 4.6 L
Hgb 9.0 L
Hct 30.2 L
Plt Count 142
Sodium 138
Potassium 3.7
Chloride 99
Carbon Dioxide 36 H
BUN 23 H
Creatinine 0.7
Glucose 144 H
Calcium 7.4 L
Vital Signs:
Vital Signs
Temp Pulse Resp BP Pulse Ox
98.1 F 73 23 103/51 96
02/25/25 11:37 02/25/25 09:23 02/25/25 05:00 02/25/25 09:23 02/25/25 04:55
I&O
02/24/25 02/25/25 02/26/25
06:59 06:59 06:59
Intake Total 1182.6 / 1190.3 500.4 / 500.4 240 / 240
Output Total 4350 / 4460 2430 / 2430 240 / 240
Balance -3167.4 / -3269.7 -1929.6 / -1929.6 0 / 0
Data Reviewed
-
Total Time Spent with Patient (in minutes): 55
[2025-02-25] MEDS: LASIX IV (13:29)
[2025-02-25 16:41] LABS: Glucose - Point of Care 251 mg/dl (70-99)
[2025-02-25] MEDS: NOVOLOG FLEXPEN-MODERATE RESISTANCE 5 UNITS SC ×2 (17:11→21:47)
--- NOTE | 2025-02-25 18:36 | PTCARENOTE ---
AAO x3; Normal Sinus Rhythm 75; SpO2: 95% /RA
Denies SOB, chest pain, dizziness
Transfer minimum assist from chair to bed, OOB x 6 hours
BP via left upper arm : 113/60 MAP 75 RR 26
--- NOTE | 2025-02-25 20:00 | PTCARENOTE ---
Rec'd pt resting in bed, denies pain, coooperative,SR w/ BBB, bp stable, Left foot dsg intact, RA, lungs decr, sat 100, + bowel sounds, no bm, abd soft, HNV yet this shift
[2025-02-25] MEDS: NEURONTIN 400 MG PO (21:47)
[2025-02-25] MEDS: LANTUS 0.07 UNITS SC (21:47)
[2025-02-25 21:50] LABS: Glucose - Point of Care 269 mg/dl (70-99)
[2025-02-26] VITALS (22 sets, daily range): BP systolic 90–123; BP diastolic 34–82; BMI 26.2
--- NOTE | 2025-02-26 | PTCARENOTE ---
sys reviewed, changes noted
--- NOTE | 2025-02-26 04:00 | PTCARENOTE ---
sys reviewed, CHG bath done, linens changed, bladder scanned for 102ml- K EVY Mancera aware, will cont to monitor, lungs w/ fine bibas dory, decr throughout
[2025-02-26 04:32] LABS: Hematocrit 34.3 % (37.0-47.0); Hemoglobin 10.5 g/dL (12.0-16.0); Mean Corp Hgb Conc. 30.6 g/dL (33.0-37.0); Mean Corpuscular Volume 74.9 fL (81.0-99.0); Nucleated Red Blood Cells % 0 %; Platelet Count 150 10^3/uL (130-400); Red Cell Dist. Width 18.1 % (11.5-14.5)
[2025-02-26 04:39] LABS: Blood Urea Nitrogen 33 mg/dl (7-17); Calcium 7.6 mg/dl (8.4-10.2); Carbon Dioxide 34 mmol/L (22-30); Chloride 100 mmol/L (98-107); Estimated Creatinine Clearance 39 ml/min; Glucose 145 mg/dl (70-99); Potassium 4.0 mmol/L (3.5-5.1); Sodium 138 mmol/L (135-145); eGFR 50.55
[2025-02-26 07:29] LABS: Glucose - Point of Care 169 mg/dl (70-99)
[2025-02-26] MEDS: NOVOLOG FLEXPEN-MODERATE RESISTANCE 1 UNITS SC ×2 (07:53→12:01)
[2025-02-26] MEDS: LIPITOR 40 MG PO (07:53)
[2025-02-26] MEDS: HEPARIN 5000 UNITS SC ×2 (07:53→21:00)
[2025-02-26] MEDS: LASIX 80 MG PO (07:53)
[2025-02-26] MEDS: PLAVIX 75 MG PO (07:54)
[2025-02-26] MEDS: PACERONE 200 MG PO (07:54)
[2025-02-26] MEDS: TOPROL XL 25 MG PO (07:54)
[2025-02-26] MEDS: PROTONIX 40 MG PO (07:55)
[2025-02-26] MEDS: DAKIN'S SOLUTION 0.125% 1/4 STRENGTH 1 ML TOPICAL (07:55)
[2025-02-26] MEDS: ENTRESTO 24 MG/26 MG 1 TAB PO ×2 (07:55→21:04)
[2025-02-26] MEDS: DESENEX/MITRAZOL/ZEASORB 1 APPLIC TOPICAL ×2 (07:55→20:59)
--- NOTE | 2025-02-26 08:00 | PTCARENOTE ---
Assumed care of pt. approx 0700.
OOB to chair. Eating. Hemodynamically stable. RA.
--- NOTE | 2025-02-26 08:40 | W.PN.INTV ---
Addendum entered and electronically signed by Coty Block MD 02/26/25 13:09:
Patient seen and examined independently
Reviewed resident note below, agree with plan and assessment
Briefly, patient is feeling well. Sitting in chair, at bedside. Denies chest pain, shortness of breath, nausea, abdominal pain. Remains on room air
Vital stable, chest exam with mild crackles at the base, trace edema
Data reviewed
Creatinine 1.2, electrolytes normal
100% on room air. During sleep, desaturates to 84%
A/P
Moving forward, right PA catheter has been removed
Continue with management per cardiology and nephrology. Creatinine being followed closely
Hemoglobin stable
Patient for transfer out of ICU. Will sign off. Please call with questions
Original Note:
Today's Communication / Plan
Recommendations
Recommendations are not final until attending note/attestation
- PA catheter is removed
- may be appropriate to transfer out of ICU
- per cardiology, continue oral furosemide, metoprolol, entresto, amiodarone, clopidogrel
- per nephrology, f/u BMP to trend creatinine
Assessment
-
64 yo F PMH of HFrEF with EF 20%, HTN, HLD, CAD (underwent CABG), tricuspid regurgitation, history of ventricular fibrillation cardiac arrest now with ICD, PAD, diabetes who initially p/w peripheral edema in leg and has a left heel wound. Has been
admitted to hospital since February 13. On February 21, she underwent right heart catheterization which disclosed a cardiac output of 1.94 L/min and PA pressures of 68/29. She was then admitted to ICU and placed on a milrinone drip, which was then
discontinued on February 24. Repeat measurements of PA pressures on February 25 showed reduction in diastolic PA pressure and improved cardiac output. Thus, the pulmonary artery catheter was removed on February 25.
CV:
# acute exacerbation of HFrEF
- net negative of nearly 6 L over the past 72 hours
- Creatinine initially trended down but now has risen since 02/25. The downtrend in creatinine despite aggressive diuresis may suggest cardiorenal syndrome component.
- However, the increase in creatinine likely now
- BPs have been 110s/60s
- O2 sat 99%
- Amiodarone, metoprolol, entresto
- continue furosemide
Renal
- peripheral edema is improved from last week (on my exam)
- monitor I/O and f/u BMP
GI
- pantoprazole
Heme
- heparin for dvt ppx
Neuro:
denies pain
ID:
- WBC within normal limits despite wounds on heel.
Plan:
- May be appropriate to transfer out of ICU
Recommendations are not final until attending attestation/note
Subjective Dataa
Subjective Data
Date of Service:
Date of Service: February 26, 2025
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
Subjective:
64 yo F PMH of HFrEF with EF 20%, HTN, HLD, CAD (underwent CABG), tricuspid regurgitation, history of ventricular fibrillation cardiac arrest now with ICD, PAD, diabetes who initially p/w peripheral edema in leg and has a left heel wound. Has been
admitted to hospital since February 13. On February 21, she underwent right heart catheterization which disclosed a cardiac output of 1.94 L/min and PA pressures of 68/29. She was then admitted to ICU and placed on a milrinone drip, which was then
discontinued on February 24.
Repeat measurements of PA pressures on February 25 showed reduction in diastolic PA pressure and improved cardiac output. Thus, the pulmonary artery catheter was removed.
This morning, she reports feeling well, denies any pain, has no complaints.
Review of Systems
General: Other (per HPI)
Objective Data
Data Reviewed
Vital Signs / I&O / Oxygen:
Vital Signs
Temp Pulse Resp BP Pulse Ox
97.4 F 76 24 109/65 100
02/26/25 07:40 02/26/25 08:00 02/26/25 08:00 02/26/25 08:00 02/26/25 08:01
Intake and Output
02/25/25 02/26/25 02/27/25
06:59 06:59 06:59
Intake Total 500.4 / 500.4 605 / 605
Output Total 2430 / 2430 440 / 440
Balance -1929.6 / -1929.6 165 / 165
SaO2 100
Nasal Cannula flow liters per 2
minute
Physical Exam
General: Comfortable
HEENT: Normocephalic and Anicteric
Cardiovascular: Regular Rhythm and Other (1+ pitting edema on lower extremities b/l)
GI: Soft, Non Distended and Non Tender
Neurology: Awake, Alert and Other (moving all 4 extremities)
Skin: Warm and Other (left heel in bandage)
Labs/Micro/Reports
Lab Data
02/26/25 03:44
02/26/25 03:44
Laboratory Results
02/26/25
06:00
PT Cancelled
INR Cancelled
APTT Cancelled
Hgb 10.5
WBC 4.4
Plt 150
K+ 4.0
Cr 1.2, up from 0.7
PAP 57/18 CVP 30
Cardiac output 3.4 L/min
I/Os:
7/4: -2865 mL
7/5: -3167 mL
7/6: -1929 mL
7/7: +165 mL
--- NOTE | 2025-02-26 10:26 | W.PN.HOSP.TC ---
Today's Communication/Plan
-
trend cr-mild bump noted
monitor BP
Cards/nephro
ok to tx out of ICU
Assessment / Plan
Assessment / Plan
Physical Exam
General: No Apparent Distress and Comfortable
HEENT: Moist mucous membranes and Atraumatic,
Respiratory: much less rales (at bases ); No Wheezes, nasal cannula
Cardiac: S1/S2 and Regular Rhythm
GI: Soft and Non Tender
Musculoskeletal: No Clubbing remains with B/L LE pitting edema improved
Skin: Left heel dressing
Neuro: Alert, Oriented and Nonfocal/grossly intact; No Facial Droop or Tremors
Psych: Calm;
64 female presented with worsening leg edema and left heel wound
# Acute on severe chronic HFrEF
#Severe TR
#Acute hypoxic respiratory failure
ECHO -11/2024-HFrEF with EF of 20 to 25%, global hypokinesis with septal akinesis, severe TR with PASP elevated to 63, moderate MR.
Daily weight. Strict I &O
Patient with worsening renal failure and not much improvement in weight
Underwent right heart catheterization which showed severely reduced cardiac output and index. Elevated right and left ventricular filling pressure
Wedge pressure 43.
Cardiac index severely reduced 1.11.
Discussed with interventional cardiology.
s/p Cocoa-Susy catheter
off milrinone.
Cardiology correspondence noted
Patient was started on Entresto and Toprol. Plan to add Aldactone if blood pressure can tolerate. Did have episode of soft blood pressure and increase in Creatine
Currently on Lasix 80 mg p.o. daily dosing improvement in weight.
Diuresis per nephrology
losing weight
Appreciate cards input
# Acute kidney injury likely suspected due to cardiorenal syndrome
#Mild hyperkalemia possibly due to losartan in the setting of elevated creatinine
Creatinine continues to uptrend
Received dose of Zaroxolyn 02/20/2025
Status post right heart catheterization as above
Creatinine uptrended from 0.7 to 1.2
Potassium normalized
Nephrology input
# Nausea
Now on low dose Reglan AC and can taper in 1 week
Possible gastritis or Gastroparesis or congestive gastropathy
US did not hsow acute findings.
No fever or leukocytosis, she denies constipation or diarrhea, reports normal BM.
c/w IV PPI
off augmentin.
EGD 01/23/25 showed focal gastritis
c/w PPI , trial of short course of Reglan. Will complete 7-day course.
# Left heel ulcerated wound due to DM & PAD
Patient and family decided to come to the hospital due to worsening wound with foul-smelling.
s/p IR for right central line placement.
s/p arteriogram 02/16 showed significant PAD, not amenable to stent placement.
Negative blood culture
Empiric antibiotic
Tylenol for pain
Appreciate ID & Vascular surgery help, f/u in office with Dr Harris.
#Mild thrombocytopenia
Continue to monitor
Platelets improved and stabilized 150.
# Hypokalemia, replaced
#Normocytic anemia-Anemia of chronic disease
Continue to monitor hemoglobin.
Transfuse for hemoglobin less than 7
#Type 2 diabetes mellitus-
Reducing Lantus due to low blood glucose
Holding AC insulin due to hypoglycemia, c/w ISS
POC appropriate
#SLE-
Prior medications on admission, was on prednisone.
#Essential hypertension-
Blood pressure improved.
#Hyperlipidemia-
# h/o V fib arrest s/p ICD
- cont amiodarone
#Peripheral diabetic neuropathy-
#History of GERD-
IV PPI
#CAD with Recent CABG-
She denies chest pain.
Troponin negative X 2
- 08/2024
- cont Plavix.
#Anxiety/depression-
Continue citalopram 20 mg.
DVT prophylaxis-
Continue subcu hep
CODE STATUS-
Full code
PT-Home VN. CM aware.
Anticipated Discharge: 24 - 48 hours
Subjective/Interval History
-
Date of Service: February 26, 2025
Cocoa catheter removed
States improvement in lower extremity edema
Objective Data
-
Labs:
Laboratory Results
02/26/25 02/26/25
03:44 06:00
WBC 4.4 L
Hgb 10.5 L
Hct 34.3 L
Plt Count 150
PT Cancelled
INR Cancelled
APTT Cancelled
Sodium 138
Potassium 4.0
Chloride 100
Carbon Dioxide 34 H
BUN 33 H
Creatinine 1.2 H
Glucose 145 H
Calcium 7.6 L
Vital Signs:
Vital Signs
Temp Pulse Resp BP Pulse Ox
97.4 F 76 24 109/65 100
02/26/25 07:40 02/26/25 08:00 02/26/25 08:00 02/26/25 08:00 02/26/25 08:01
I&O
02/25/25 02/26/25 02/27/25
06:59 06:59 06:59
Intake Total 500.4 / 500.4 605 / 605
Output Total 2430 / 2430 440 / 440
Balance -1929.6 / -1929.6 165 / 165
--- NOTE | 2025-02-26 10:47 | W.PN.CARDCBS ---
Today's Communication / Plan
-
Stable cardiology status
Increase activity
Resume Aldactone if blood pressure tolerates and renal function remains stable, creatinine 1.2 on 02/26
Impression / Plan
-
Primary care provider: Keli Gonzalez MD
Primary cold roll operator: Lan Estrada MD
Impression:
Admitted with LE edema and left heel wound 02/13/25
Recent admission for acute HF and dysphagia 01/20/2025 until 01/24/2025
Acute on chronic HFrEF
ICM EF 20 to 25% by echo 12/19/2024
Severe TR with PAP 63 mmHg
Chronic dysphagia, chronic abdominal pain
CAD s/p CABG with VILLAFUERTE to LAD, saphenous vein to diagonal, saphenous vein to obtuse marginal at [facility] 08/26/24
Postop VF arrest
Patent VILLAFUERTE to LAD, patent SVG to diagonal, patent SVG to OM by postop cardiac cath
s/p Martini [employer] Eric SC ICD at [facility] 08/2024
h/o C. difficile postop CABG at [facility]
Anaphylactic aspirin allergy with previous mild allergic reaction during attempted aspirin desensitization therapy at [facility] 08/24/24
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
no options on peripheral angiogram 02/16/25, outpatient eval for Limflow procedure for known obliterative small vessel disease
DM 2
Diabetic neuropathy
Lupus
Hypertension
Dyslipidemia
Echo 07/2024: tricuspid regurgitation increased from trace to severe and systolic pulmonary artery pressure previously was estimated at 25 to 30 mmHg and now is estimated at 63 mmHg.
Echo 12/09/24: finds severely reduced left ventricular systolic function with ejection fraction of 20-25%. Global hypokinesis with septal akinesis. Stage III diastolic dysfunction. Moderate mitral regurgitation, severe tricuspid regurgitation with
estimated pulmonary artery pressure of 63 mmHg.
Right heart catheterization February 21, 2025:
RA pressure 34, RV pressure 64/18, PA pressure 68/29, pulmonary capillary wedge pressure 43. Cardiac output is 1.94 with a cardiac index of 1.11. SVR is 2480 [id number]-yk(-5)
Right heart 02/24/2025: 58/22, right atrial pressure 16, cardiac index 2.5 on 02/23
Plan:
Stable cardiology status on oral Lasix
Continue Toprol and Entresto.
Eventually resume Aldactone 12.5 mg daily if blood pressure tolerates and renal function remains stable: Creatinine 1.2 on 02/26
Did not tolerate Jardiance with dysphagia and abdominal pain
Continue amiodarone status post arrest in August 2024
Continue Plavix with aspirin allergy
She has had chronic GI symptoms, abdominal bloating and discomfort. Has been followed by GI. had upper endoscopy 01/23/2025, but they did not find any obvious findings. Despite attempts at colonoscopy prep it was inadequate and colonoscopy was not
attempted and she was recommended to follow-up as an outpatient.
Discussed with patient's daughter Erika by phone
HPI: Patient came to [facility] ER today with increased LE edema and left heel wound and is now admitted for foot wound and acute HF, cardiology has been consulted. Patient previously admitted to [facility] 08/20/2024 until 08/26/2024 with NSTEMI and MV CAD.
Patient with previous anaphylactic allergy to aspirin and there was an attempt at aspirin desensitization starting on the night of 08/21/2024 and patient had swollen eyes and hand tremors so desensitization therapy was stopped and the family was not
interested in another attempt. It then came to light that the patient's family member is a senior general maintenance technician at [facility] and the family requested transfer which was performed on 08/26/2024. As noted above patient had CABG and postop suffered VF
arrest. Post CABG cardiac cath showed patent grafts and patient ultimately had an Martini [employer] Eric ICD placed. Patient also had C. difficile postop in the [facility] there were also right toe amputations that were performed all as part of her postop
course. Patient was just admitted to [facility] 01/20/2025 until 01/24/2025 with acute HFrEF and dysphagia, but GI workup was unrevealing in part because colonoscopy prep was inadequate. Left heel wound has been getting worse at home and patient is known
to the vascular surgery service, sounds like at some point she was supposed to get a peripheral angiogram that was delayed due to her last admission. Also, patient missed her cardiology visit on 02/07/2025 and called the next day to let us know that
she was gaining weight and at that time Dr. Estrada increased her Lasix to 80 mg BID, the patient denies any decrease in urine output and LE edema only worsened.
Progress Note - Block Paver
Subjective
Date of Service: February 26, 2025
No complaints
Objective
Labs:
02/26/25 03:44
02/26/25 03:44
Labs
Hgb 10.5 g/dL (12.0-16.0) L 02/26/25 03:44
Hct 34.3 % (37.0-47.0) L 02/26/25 03:44
Plt Count 150 10^3/uL (130-400) 02/26/25 03:44
PT Cancelled 02/26/25 06:00
INR Cancelled 02/26/25 06:00
APTT Cancelled 02/26/25 06:00
Sodium 138 mmol/L (135-145) 02/26/25 03:44
Potassium 4.0 mmol/L (3.5-5.1) 02/26/25 03:44
BUN 33 mg/dl (7-17) H 02/26/25 03:44
Creatinine 1.2 mg/dL (0.6-1.0) H 02/26/25 03:44
Glucose 145 mg/dl (70-99) H 02/26/25 03:44
Vital Signs and I&O:
Vital Signs
Temp Pulse Resp BP Pulse Ox
97.4 F 68 21 123/82 100
02/26/25 07:40 02/26/25 10:00 02/26/25 10:00 02/26/25 10:00 02/26/25 08:01
Vital Signs
Temp Pulse Resp BP Pulse Ox
97.4 F 68 21 123/82 100
02/26/25 07:40 02/26/25 10:00 02/26/25 10:00 02/26/25 10:00 02/26/25 08:01
Intake & Output
02/24/25 02/25/25 02/26/25 02/27/25
06:59 06:59 06:59 06:59
Intake Total 1182.6 / 1190.3 500.4 / 500.4 605 / 605
Output Total 4350 / 4460 2430 / 2430 440 / 440
Balance -3167.4 / -3269.7 -1929.6 / -1929.6 165 / 165
Physical Exam
Physical Exam
General: Well developed, well nourished in NAD.
Neck: Supple, no JVD, HJR, carotids +2 B/L, no bruits bilaterally.
Heart: Non displaced PMI, RRR, no murmurs, No S3, S4, no rubs.
Lungs: Scattered rhonchi
Extremities: No clubbing, cyanosis or edema bilaterally.
Neuro: Grossly nonfocal, awake, alert and oriented x3.
--- NOTE | 2025-02-26 10:49 | W.PN.NEPH.PH ---
Today's Communication / Plan
-
monitor labs, uptitrate lasix if wt still high
Assessment/Plan
-
64-year-old female with history of ischemic cardiomyopathy, severe tricuspid regurgitation, CAD status post CABG August 2024, CHF with an EF of 20%, insulin-dependent diabetes, peripheral vascular disease, diabetic neuropathy and lupus, history of
V-fib arrest status post ICD who has been seen by GI inpatient including most recently early January 2025 for weight loss and dysphagia now back with heart failure and foul-smelling wound. She has been hospitalized multiple times this year for CABG,
pneumonia, toe amputation, abdominal pain, dysphagia and 60 pound weight loss over 6 months since her surgery. She has been admitted since February 13 and underwent lower extremity angiogram for significant PAD and wound.
Underwent right heart catheterization today showed severely reduced cardiac output and index with elevated right and left ventricular filling pressures significant volume overload.
Renal was consulted for acute kidney injury with a creatinine of 1.6
Impression.
Acute kidney injury multifactorial cardiorenal IV contrast exposure baseline creatinine 1.
Ischemic cardiomyopathy ejection fraction 20%. Decompensated
Diabetes
Severe PAD with necrotic left heel.
CAD/ICD
History of cardiac arrest
Plan.
cr is slightly up at 1.2
now on po lasix, wt is up not sure if accurate bedscale
off swan
if wt increasing trend likely increase lasix to BID
off mccallum, follow bladder scan 102cc
BP stable on Entresto and low dose BB, hold ALdactone
Follow BMP
-
-
Date of Service: February 26, 2025
CC / HPI / ROS
-
Chief Complaint:
Shortness of breath
History of Present Illness:
CHF severe ischemic cardiomyopathy with ANTONIO
ANTONIO/creatinine up at 1.2
BP stable
wt is up in bed scale
Review of Systems:
No chest pain or shortness of breath
Nonoliguric
Labs
-
Labs:
WBC 4.4 10^3/uL (4.8-10.8) L 02/26/25 03:44
RBC 4.58 10^6/uL (4.20-5.40) 02/26/25 03:44
Hgb 10.5 g/dL (12.0-16.0) L 02/26/25 03:44
Hct 34.3 % (37.0-47.0) L 02/26/25 03:44
Plt Count 150 10^3/uL (130-400) 02/26/25 03:44
Sodium 138 mmol/L (135-145) 02/26/25 03:44
Potassium 4.0 mmol/L (3.5-5.1) 02/26/25 03:44
Chloride 100 mmol/L (98-107) 02/26/25 03:44
Carbon Dioxide 34 mmol/L (22-30) H 02/26/25 03:44
BUN 33 mg/dl (7-17) H 02/26/25 03:44
Creatinine 1.2 mg/dL (0.6-1.0) H 02/26/25 03:44
eGFR 50.55 02/26/25 03:44
Glucose 145 mg/dl (70-99) H 02/26/25 03:44
Calcium 7.6 mg/dl (8.4-10.2) L 02/26/25 03:44
Phosphorus 4.2 mg/dl (2.5-4.5) 02/21/25 13:07
Cub-W-Ikscpmxrued Pept 73174 pg/ml 02/17/25 04:42
Albumin 3.5 g/dl (3.5-5.0) 02/21/25 13:07
Physical Exam
-
Vital Signs:
Vital Signs
Temp Pulse Resp BP Pulse Ox
97.4 F 68 21 123/82 100
02/26/25 07:40 02/26/25 10:00 02/26/25 10:00 02/26/25 10:00 02/26/25 08:01
Cardiovascular:: Regular rate and rhythm
Respiratory:: Bilateral: CTA (decreased BS)
Lung Excursion:: Normal
Abdomen:: Nontender and Soft
Extremity Edema:: +1: Bilateral:
Mccallum Catheter: No
[2025-02-26 11:18] LABS: Glucose - Point of Care 193 mg/dl (70-99)
--- NOTE | 2025-02-26 16:54 | CM ---
Awaiting updated therapy orders and evals. Is on service with CHARLETTE PALOMO for RN. Previous therapy rec was [facility] vs [facility].
[2025-02-26 17:34] LABS: Glucose - Point of Care 240 mg/dl (70-99)
[2025-02-26] MEDS: NOVOLOG FLEXPEN-MODERATE RESISTANCE 3 UNITS SC ×2 (17:38→21:11)
[2025-02-26 21:07] LABS: Glucose - Point of Care 227 mg/dl (70-99)
[2025-02-26] MEDS: LANTUS 0.07 UNITS SC (21:10)
[2025-02-27] VITALS (7 sets, daily range): BP systolic 93–106; BP diastolic 40–62; PULSE 77; BMI 26.6
[2025-02-27 08:10] LABS: Glucose - Point of Care 259 mg/dl (70-99)
[2025-02-27 08:32] LABS: Hematocrit 30.2 % (37.0-47.0); Hemoglobin 9.2 g/dL (12.0-16.0); Mean Corp Hgb Conc. 30.5 g/dL (33.0-37.0); Mean Corpuscular Volume 74.4 fL (81.0-99.0); Nucleated Red Blood Cells % 0 %; Platelet Count 141 10^3/uL (130-400); Red Cell Dist. Width 17.7 % (11.5-14.5)
[2025-02-27] MEDS: PROTONIX 40 MG PO (08:42)
[2025-02-27] MEDS: ENTRESTO 24 MG/26 MG 1 TAB PO (08:42)
[2025-02-27] MEDS: LIPITOR 40 MG PO (08:43)
[2025-02-27] MEDS: TOPROL XL 25 MG PO (08:43)
[2025-02-27] MEDS: DESENEX/MITRAZOL/ZEASORB 1 APPLIC TOPICAL ×2 (08:43→19:57)
[2025-02-27] MEDS: PACERONE 200 MG PO (08:43)
[2025-02-27] MEDS: HEPARIN 5000 UNITS SC ×2 (08:44→19:59)
[2025-02-27] MEDS: PLAVIX 75 MG PO (08:44)
[2025-02-27] MEDS: NOVOLOG FLEXPEN-MODERATE RESISTANCE 5 UNITS SC (08:45)
[2025-02-27 08:53] LABS: Blood Urea Nitrogen 42 mg/dl (7-17); Calcium 7.8 mg/dl (8.4-10.2); Carbon Dioxide 31 mmol/L (22-30); Chloride 100 mmol/L (98-107); Estimated Creatinine Clearance 34 ml/min; Glucose 236 mg/dl (70-99); Potassium 4.3 mmol/L (3.5-5.1); Sodium 137 mmol/L (135-145); eGFR 42.01
--- NOTE | 2025-02-27 09:11 | W.PN.HOSP.TC ---
Today's Communication/Plan
-
DC planning
Assessment / Plan
Assessment / Plan
Physical Exam
General: No Apparent Distress and Comfortable
HEENT: Moist mucous membranes and Atraumatic,
Respiratory: no rales ; No Wheezes, nasal cannula
Cardiac: S1/S2 and Regular Rhythm
GI: Soft and Non Tender
Musculoskeletal: No Clubbing remains with B/L LE no pitting edema improved
Skin: Left heel dressing
Neuro: Alert, Oriented and Nonfocal/grossly intact; No Facial Droop or Tremors
Psych: Calm;
64 female presented with worsening leg edema and left heel wound
# Acute on severe chronic HFrEF
#Severe TR
#Acute hypoxic respiratory failure, resolved
ECHO -11/2024-HFrEF with EF of 20 to 25%, global hypokinesis with septal akinesis, severe TR with PASP elevated to 63, moderate MR.
Daily weight. Strict I &O
Patient with worsening renal failure and not much improvement in weight
Underwent right heart catheterization which showed severely reduced cardiac output and index. Elevated right and left ventricular filling pressure
Wedge pressure 43.
Cardiac index severely reduced 1.11.
Discussed with interventional cardiology.
s/p [place] catheter
off milrinone.
Overall, unable to advance guideline directed medical therapy for heart failure due to low blood pressure and renal insufficiency.
Patient was started on Entresto and Toprol. but low BP and rising creatinine, stopped Entresto and c/w Lasix for now
Currently on Lasix 80 mg p.o. daily dosing improvement in weight.
Appreciate cardiology and nephrology input
# Acute kidney injury due to cardiorenal syndrome
#Mild hyperkalemia possibly due to losartan in the setting of elevated creatinine
Creatinine continues to rise with low BP, unable to tolerate Entresto and Aldactone.
Received dose of Zaroxolyn 02/20/2025
Status post right heart catheterization
Potassium normalized
Nephrology is following.
# Nausea , resolved with treatment of heart failure and course of Reglan .
Due to combination of Gastroparesis or congestive gastropathy
US did not show acute findings.
No fever or leukocytosis, she denies constipation or diarrhea, reports normal BM.
c/w IV PPI
off Augmentin.
EGD 01/23/25 showed focal gastritis
c/w PPI , trial of short course of Reglan. Will complete 7-day course.
# Left heel ulcerated non healing wound due to severe PAD and underlying diabetes.
Patient and family decided to come to the hospital due to worsening wound with foul-smelling.
s/p IR for right central line placement.
s/p arteriogram 02/16 showed significant PAD, not amenable to stent placement.
Negative blood culture
Empiric antibiotic is finished.
Tylenol for pain
Appreciate ID & Vascular surgery help, f/u in office with Dr Harris.
#Mild thrombocytopenia
Continue to monitor
Platelets improved and stabilized 150.
# Hypokalemia, replaced
#Normocytic anemia-Anemia of chronic disease
Continue to monitor hemoglobin.
Transfuse for hemoglobin less than 7
#Type 2 diabetes mellitus-
Reducing Lantus due to low blood glucose
Holding AC insulin due to hypoglycemia, c/w ISS
POC appropriate
#SLE-
Prior medications on admission, was on prednisone.
#Essential hypertension-
Blood pressure improved.
#Hyperlipidemia-
# h/o V fib arrest s/p ICD
- cont amiodarone
#Peripheral diabetic neuropathy-
#History of GERD-
IV PPI
#CAD with Recent CABG-
She denies chest pain.
Troponin negative X 2
- 08/2024
- cont Plavix.
#Anxiety/depression-
Continue citalopram 20 mg.
DVT prophylaxis-
Continue subcu hep
CODE STATUS-
Full code
Total time spent to see the patient, examine the patient, review data and lab result, discuss treatment plan with patient, nursing staff around 55 minutes
Anticipated Discharge: Within 24 hours
Subjective/Interval History
-
Date of Service: February 27, 2025
No complaints
wants to go home
Objective Data
-
Labs:
Laboratory Results
02/27/25 02/27/25
06:44 07:57
WBC Cancelled 4.6 L
Hgb Cancelled 9.2 L
Hct Cancelled 30.2 L
Plt Count Cancelled 141
Sodium Cancelled 137
Potassium Cancelled 4.3
Chloride Cancelled 100
Carbon Dioxide Cancelled 31 H
BUN Cancelled 42 H
Creatinine Cancelled 1.4 H
Glucose Cancelled 236 H
Calcium Cancelled 7.8 L
Vital Signs:
Vital Signs
Temp Pulse Resp BP Pulse Ox
98.3 F 79 16 98/51 91
02/27/25 07:00 02/27/25 08:43 02/27/25 07:00 02/27/25 08:43 02/27/25 07:00
I&O
02/26/25 02/27/25 02/28/25
06:59 06:59 06:59
Intake Total 605 / 605 340 / 340
Output Total 440 / 440
Balance 165 / 165 340 / 340
[2025-02-27] MEDS: LASIX PO (10:01)
--- NOTE | 2025-02-27 11:14 | W.PN.CARDCBS ---
Addendum entered and electronically signed by Roderick Dixon MD 02/27/25 12:03:
I saw and examined the patient.
The GRADALL OPERATOR or PA's note was reviewed and I agree with the note.
Comment: General: Well developed, well nourished in NAD.
Neck: Supple, no JVD, HJR, carotids +2 B/L, no bruits bilaterally.
Heart: Non displaced PMI, RRR, no murmurs, No S3, S4, no rubs.
Lungs: Clear to auscultation bilaterally, no wheeze, rhonchi, rubs bilaterally,
normal expiratory phase.
Extremities: No clubbing, cyanosis or edema bilaterally.
Neuro: Grossly nonfocal, awake, alert and oriented x3.
Remains stable from cardiology viewpoint. Hold Entresto with RI and hypotension. d/w primary service
Original Note:
Today's Communication / Plan
-
Cont Lasix 80 mg PO daily
Holding Entresto due to hypotension and ANTONIO, nephrology following
Impression / Plan
-
Primary care provider: Keli Gonzalez MD
Primary development mechanic: Lan Estrada MD
Impression:
Admitted with LE edema and left heel wound 02/13/25
Recent admission for acute HF and dysphagia 01/20/2025 until 01/24/2025
Acute on chronic HFrEF
ICM EF 20 to 25% by echo 12/19/2024
Severe TR with PAP 63 mmHg
Chronic dysphagia, chronic abdominal pain
CAD s/p CABG with VILLAFUERTE to LAD, saphenous vein to diagonal, saphenous vein to obtuse marginal at [facility] 08/26/24
Postop VF arrest
Patent VILLAFUERTE to LAD, patent SVG to diagonal, patent SVG to OM by postop cardiac cath
s/p Martini [employer] SC ICD at [facility] 08/2024
h/o C. difficile postop CABG at [facility]
Anaphylactic aspirin allergy with previous mild allergic reaction during attempted aspirin desensitization therapy at [facility] 08/24/24
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
no options on peripheral angiogram 02/16/25, outpatient eval for Limflow procedure for known obliterative small vessel disease
DM 2
Diabetic neuropathy
Lupus
Hypertension
Dyslipidemia
Echo 07/2024: tricuspid regurgitation increased from trace to severe and systolic pulmonary artery pressure previously was estimated at 25 to 30 mmHg and now is estimated at 63 mmHg.
Echo 12/09/24: finds severely reduced left ventricular systolic function with ejection fraction of 20-25%. Global hypokinesis with septal akinesis. Stage III diastolic dysfunction. Moderate mitral regurgitation, severe tricuspid regurgitation with
estimated pulmonary artery pressure of 63 mmHg.
Right heart catheterization February 21, 2025:
RA pressure 34, RV pressure 64/18, PA pressure 68/29, pulmonary capillary wedge pressure 43. Cardiac output is 1.94 with a cardiac index of 1.11. SVR is 2480 dyarj-ciq-ss(-5)
Right heart 02/24/2025: 58/22, right atrial pressure 16, cardiac index 2.5 on 02/23
Plan:
-Weight down to 150 lbs on 02/27/25 following milrinone infusion that started 02/21/25 and ran until 02/24/2025.
-Continue Lasix 80 mg PO daily as ordered by nephrology. Patient was taking Lasix 80 mg PO BID prior to admission
-Patient with ICM, EF 20 to 25% by echo 12/09/2024, no need to repeat echo
-Outpatient dose of Toprol-XL 25 mg daily has been continued
-Outpatient dose of losartan was changed to Entresto earlier this admission, but hypotension and ANTONIO on labs and VS reviewed by me 02/27/2025 so we will hold Entresto for now, orders placed by me.
-Patient was started on Jardiance [address] Estrada 10/2024, but this medication appears to have been stopped with her ongoing GI symptoms and is not currently ordered and she was not taking it prior to admission
-Outpatient dose of spironolactone 25 mg daily was continued initially, but then held for peripheral arteriogram 02/16/25 and has not been restarted due to ANTONIO.
-Outpatient dose of amiodarone 200 mg daily has been continued for her post CABG VF arrest. No known history of atrial arrhythmia and patient is not chronically on OAC. QTc 452 ms by ECG 02/21/2025
-Outpatient dose of Plavix 75 mg daily has been continued and this will presumably be long-term as patient cannot take aspirin due to history of anaphylactic allergy
-Patient continues with GI symptoms and had upper endoscopy 01/23/2025, but they did not find any obvious findings. Despite attempts at colonoscopy prep it was inadequate and colonoscopy was not attempted and she was recommended to follow-up as an
outpatient. New to [facility] this admission and she ate 100% of her breakfast 02/21/25
HPI: Patient came to [facility] ER today with increased LE edema and left heel wound and is now admitted for foot wound and acute HF, cardiology has been consulted. Patient previously admitted to [facility] 08/20/2024 until 08/26/2024 with NSTEMI and MV CAD.
Patient with previous anaphylactic allergy to aspirin and there was an attempt at aspirin desensitization starting on the night of 08/21/2024 and patient had swollen eyes and hand tremors so desensitization therapy was stopped and the family was not
interested in another attempt. It then came to light that the patient's family member is a senior railroad signal technician at [facility] and the family requested transfer which was performed on 08/26/2024. As noted above patient had CABG and postop suffered VF
arrest. Post CABG cardiac cath showed patent grafts and patient ultimately had an Martini [employer] Eric ICD placed. [facility] were also right toe amputations that were performed all as part of her postop
course. Patient was just admitted to [facility] 01/20/2025 until 01/24/2025 with acute HFrEF and dysphagia, but GI workup was unrevealing in part because colonoscopy prep was inadequate. Left heel wound has been getting worse at home and patient is known
to the vascular surgery service, sounds like at some point she was supposed to get a peripheral angiogram that was delayed due to her last admission. Also, patient missed her cardiology visit on 02/07/2025 and called the next day to let us know that
she was gaining weight and at that time Dr. Estrada increased her Lasix to 80 mg BID, the patient denies any decrease in urine output and LE edema only worsened.
Progress Note - Merchandise Displayer
Subjective
Date of Service: February 27, 2025
Less SOB
Objective
Labs:
02/27/25 07:57
02/27/25 07:57
Labs
Hgb 9.2 g/dL (12.0-16.0) L 02/27/25 07:57
Hct 30.2 % (37.0-47.0) L 02/27/25 07:57
Plt Count 141 10^3/uL (130-400) 02/27/25 07:57
PT Cancelled 02/26/25 06:00
INR Cancelled 02/26/25 06:00
APTT Cancelled 02/26/25 06:00
Sodium 137 mmol/L (135-145) 02/27/25 07:57
Potassium 4.3 mmol/L (3.5-5.1) 02/27/25 07:57
BUN 42 mg/dl (7-17) H 02/27/25 07:57
Creatinine 1.4 mg/dL (0.6-1.0) H 02/27/25 07:57
Glucose 236 mg/dl (70-99) H 02/27/25 07:57
Vital Signs and I&O:
Vital Signs
Temp Pulse Resp BP Pulse Ox
98.3 F 79 16 98/51 91
02/27/25 07:00 02/27/25 08:43 02/27/25 07:00 02/27/25 08:43 02/27/25 07:00
Vital Signs
Temp Pulse Resp BP Pulse Ox
98.3 F 79 16 98/51 91
02/27/25 07:00 02/27/25 08:43 02/27/25 07:00 02/27/25 08:43 02/27/25 07:00
Intake & Output
02/25/25 02/26/25 02/27/25 02/28/25
06:59 06:59 06:59 06:59
Intake Total 500.4 / 500.4 605 / 605 340 / 340
Output Total 2430 / 2430 440 / 440
Balance -1929.6 / -1928.6 165 / 165 340 / 340
Physical Exam
Physical Exam
GEN: NAD
HEENT: EOMI
LUNGS: RA. No audible wheeze
CV: SR on tele
[2025-02-27 11:57] LABS: Glucose - Point of Care 189 mg/dl (70-99)
--- NOTE | 2025-02-27 13:04 | W.PN.NEPH.PH ---
Today's Communication / Plan
-
follow labs with holding lasix and Entresto
not ready for d/c yet
Assessment/Plan
-
64-year-old female with history of ischemic cardiomyopathy, severe tricuspid regurgitation, CAD status post CABG August 2024, CHF with an EF of 20%, insulin-dependent diabetes, peripheral vascular disease, diabetic neuropathy and lupus, history of
V-fib arrest status post ICD who has been seen by GI inpatient including most recently early January 2025 for weight loss and dysphagia now back with heart failure and foul-smelling wound. She has been hospitalized multiple times this year for CABG,
pneumonia, toe amputation, abdominal pain, dysphagia and 60 pound weight loss over 6 months since her surgery. She has been admitted since February 13 and underwent lower extremity angiogram for significant PAD and wound.
Underwent right heart catheterization today showed severely reduced cardiac output and index with elevated right and left ventricular filling pressures significant volume overload.
Renal was consulted for acute kidney injury with a creatinine of 1.6
Impression.
Acute kidney injury multifactorial cardiorenal IV contrast exposure baseline creatinine 1.
Ischemic cardiomyopathy ejection fraction 20%. Decompensated
Diabetes
Severe PAD with necrotic left heel.
CAD/ICD
History of cardiac arrest
Plan.
cr is slightly up at 1.4
holding po lasix, wt is up not sure if accurate bedscale
she is off O2
agree holding Entresto with ANTONIO
may resume lasix tomorrow if cr better
holding ALdactone
Follow BMP
-
-
Date of Service: February 27, 2025
CC / HPI / ROS
-
Chief Complaint:
Shortness of breath
History of Present Illness:
CHF severe ischemic cardiomyopathy with ANTONIO
ANTONIO/creatinine up at 1.4
BP soft
wt is up in bed scale
Review of Systems:
No chest pain or shortness of breath
Nonoliguric
Labs
-
Labs:
WBC 4.6 10^3/uL (4.8-10.8) L 02/27/25 07:57
RBC 4.06 10^6/uL (4.20-5.40) L 02/27/25 07:57
Hgb 9.2 g/dL (12.0-16.0) L 02/27/25 07:57
Hct 30.2 % (37.0-47.0) L 02/27/25 07:57
Plt Count 141 10^3/uL (130-400) 02/27/25 07:57
Sodium 137 mmol/L (135-145) 07 07:57
Potassium 4.3 mmol/L (3.5-5.1) 02/27/25 07:57
Chloride 100 mmol/L (98-107) 02/27/25 07:57
Carbon Dioxide 31 mmol/L (22-30) H 02/27/25 07:57
BUN 42 mg/dl (7-17) H 02/27/25 07:57
Creatinine 1.4 mg/dL (0.6-1.0) H 02/27/25 07:57
eGFR 42.01 02/27/25 07:57
Glucose 236 mg/dl (70-99) H 02/27/25 07:57
Calcium 7.8 mg/dl (8.4-10.2) L 02/27/25 07:57
Phosphorus 4.2 mg/dl (2.5-4.5) 02/21/25 13:07
Ymx-Z-Anqymbcrqkl Pept 01077 pg/ml 02/17/25 04:42
Albumin 3.5 g/dl (3.5-5.0) 02/21/25 13:07
Physical Exam
-
Vital Signs:
Vital Signs
Temp Pulse Resp BP Pulse Ox
97.9 F 78 18 104/52 96
02/27/25 11:00 02/27/25 11:00 02/27/25 11:00 02/27/25 11:00 02/27/25 11:00
Cardiovascular:: Regular rate and rhythm
Respiratory:: Bilateral: CTA (decreased BS)
Lung Excursion:: Normal
Abdomen:: Nontender and Soft
Extremity Edema:: +1: Bilateral:
Cha Catheter: No
[2025-02-27] MEDS: DAKIN'S SOLUTION 0.125% 1/4 STRENGTH 1 ML TOPICAL (13:08)
[2025-02-27] MEDS: NOVOLOG FLEXPEN-MODERATE RESISTANCE 1 UNITS SC ×2 (13:31→17:30)
[2025-02-27 16:23] LABS: Glucose - Point of Care 188 mg/dl (70-99)
[2025-02-27 21:26] LABS: Glucose - Point of Care 227 mg/dl (70-99)
[2025-02-27] MEDS: NOVOLOG FLEXPEN-MODERATE RESISTANCE 3 UNITS SC (21:42)
[2025-02-27] MEDS: LANTUS 0.07 UNITS SC (21:42)
[2025-02-28] VITALS (10 sets, daily range): BP systolic 93–121; BP diastolic 40–92; PULSE 75; O2SAT 91; BMI 26.9
[2025-02-28 07:06] LABS: Glucose - Point of Care 167 mg/dl (70-99)
[2025-02-28 07:47] LABS: Blood Urea Nitrogen 48 mg/dl (7-17); Calcium 7.8 mg/dl (8.4-10.2); Carbon Dioxide 29 mmol/L (22-30); Chloride 99 mmol/L (98-107); Estimated Creatinine Clearance 33 ml/min; Glucose 145 mg/dl (70-99); Potassium 4.2 mmol/L (3.5-5.1); Sodium 135 mmol/L (135-145); eGFR 35.79
[2025-02-28] MEDS: TOPROL XL 25 MG PO (08:33)
[2025-02-28] MEDS: PACERONE 200 MG PO (08:33)
[2025-02-28] MEDS: PLAVIX 75 MG PO (08:33)
[2025-02-28] MEDS: PROTONIX 40 MG PO (08:33)
[2025-02-28] MEDS: HEPARIN 5000 UNITS SC ×2 (08:33→20:41)
[2025-02-28] MEDS: LIPITOR 40 MG PO (08:33)
[2025-02-28] MEDS: DESENEX/MITRAZOL/ZEASORB 1 APPLIC TOPICAL ×2 (08:34→20:40)
[2025-02-28] MEDS: NOVOLOG FLEXPEN-MODERATE RESISTANCE 1 UNITS SC ×3 (08:34→21:11)
[2025-02-28] MEDS: DAKIN'S SOLUTION 0.125% 1/4 STRENGTH 1 ML TOPICAL (08:35)
--- NOTE | 2025-02-28 09:29 | W.PN.HOSP.TC ---
Today's Communication/Plan
-
Resume Lasix
Increase Lantus
Assessment / Plan
Assessment / Plan
Encounter using Language line
Physical Exam
General: No Apparent Distress and Comfortable
HEENT: Moist mucous membranes and Atraumatic,
Respiratory: no rales ; No Wheezes, nasal cannula
Cardiac: S1/S2 and Regular Rhythm
GI: Soft and Non Tender
Musculoskeletal: No Clubbing remains with B/L LE pitting edema improved
Skin: Left heel dressing
Neuro: Alert, Oriented and Nonfocal/grossly intact; No Facial Droop or Tremors
Psych: Calm;
64 female presented with worsening leg edema and left heel wound
# Acute on severe chronic HFrEF
#Severe TR
#Acute hypoxic respiratory failure, resolved
ECHO -11/2024-HFrEF with EF of 20 to 25%, global hypokinesis with septal akinesis, severe TR with PASP elevated to 63, moderate MR.
Daily weight. Strict I &O
Patient with worsening renal failure and not much improvement in weight
Underwent right heart catheterization which showed severely reduced cardiac output and index. Elevated right and left ventricular filling pressure
Wedge pressure 43.
Cardiac index severely reduced 1.11.
s/p Durand-Susy catheter
off milrinone.
Overall, unable to advance guideline directed medical therapy for heart failure due to low blood pressure and renal insufficiency.
Patient was started on Entresto and Toprol. but low BP and rising creatinine, stopped Entresto and c/w Lasix for now
Currently on Lasix 80 mg p.o. daily dosing improvement in weight. Resume Lasix to avoid fluid retention.
Appreciate cardiology and nephrology input
# Acute kidney injury due to cardiorenal syndrome
#Mild hyperkalemia possibly due to losartan in the setting of elevated creatinine
Creatinine continues to rise with low BP, unable to tolerate Entresto and Aldactone.
Received dose of Zaroxolyn 02/20/2025
Status post right heart catheterization
Potassium normalized
Nephrology is following.
# Nausea , resolved with treatment of heart failure and course of Reglan .
Due to combination of Gastroparesis or congestive gastropathy
US did not show acute findings.
No fever or leukocytosis, she denies constipation or diarrhea, reports normal BM.
c/w IV PPI
off Augmentin.
EGD 01/23/25 showed focal gastritis
c/w PPI , trial of short course of Reglan. Will complete 7-day course.
# Left heel ulcerated non healing wound due to severe PAD and underlying diabetes.
Patient and family decided to come to the hospital due to worsening wound with foul-smelling.
s/p IR for right central line placement.
s/p arteriogram 02/16 showed significant PAD, not amenable to stent placement.
Negative blood culture
Empiric antibiotic is finished.
Tylenol for pain
Appreciate ID & Vascular surgery help, f/u in office with Dr Harris.
#Mild thrombocytopenia
Continue to monitor
Platelets improved and stabilized 150.
# Hypokalemia, replaced
#Normocytic anemia-Anemia of chronic disease
Continue to monitor hemoglobin.
Transfuse for hemoglobin less than 7
#Type 2 diabetes mellitus-
ISS
Increase dose of Lantus
POC appropriate
#SLE-
Prior medications on admission, was on prednisone.
#Essential hypertension-
Blood pressure improved.
#Hyperlipidemia-
# h/o V fib arrest s/p ICD
- cont amiodarone
#Peripheral diabetic neuropathy-
#History of GERD-
IV PPI
#CAD with Recent CABG-
She denies chest pain.
Troponin negative X 2
- 08/2024
- cont Plavix.
#Anxiety/depression-
Continue citalopram 20 mg.
DVT prophylaxis-
Continue subcu hep
CODE STATUS-
Full code
Total time spent to see the patient, examine the patient, review data and lab result, discuss treatment plan with patient, nursing staff around 55 minutes
Anticipated Discharge: 24 - 48 hours
Subjective/Interval History
-
Date of Service: February 28, 2025
No complaints
She is asking to go home
Objective Data
-
Labs:
Laboratory Results
02/28/25
06:55
Sodium 135
Potassium 4.2
Chloride 99
Carbon Dioxide 29
BUN 48 H
Creatinine 1.6 H
Glucose 145 H
Calcium 7.8 L
Vital Signs:
Vital Signs
Temp Pulse Resp BP Pulse Ox
99.1 F 79 16 110/59 93
02/28/25 07:25 02/28/25 07:25 02/28/25 07:25 02/28/25 07:25 02/28/25 08:20
I&O
02/27/25 02/28/25 03/01/25
06:59 06:59 06:59
Intake Total 340 / 340 360 / 360
Balance 340 / 340 360 / 360
--- NOTE | 2025-02-28 11:27 | W.PN.CARDCBS ---
Addendum entered and electronically signed by Roderick Dixon MD 02/28/25 12:45:
I saw and examined the patient.
The [employer] or PA's note was reviewed and I agree with the note.
Comment: General: Well developed, well nourished in NAD.
Neck: Supple, no JVD, HJR, carotids +2 B/L, no bruits bilaterally.
Heart: Non displaced PMI, RRR, no murmurs, No S3, S4, no rubs.
Lungs: Scattered rhonchi at the bases
Extremities: No clubbing, cyanosis or edema bilaterally.
Neuro: Grossly nonfocal, awake, alert and oriented x3.
Lasix and Entresto were on hold due to renal insufficiency. [place] to have an element of CHF. Will give a dose of Lasix 80 mg IV after speaking with nephrology. Patient's daughter was updated by phone.
Original Note:
Today's Communication / Plan
-
Lasix 80 mg IV x1
Follow labs and weight in AM and consider repeat RHC
Impression / Plan
-
Primary care provider: Keli Gonzalez MD
Primary contour band saw operator vertical: Lan Estrada MD
Impression:
Admitted with LE edema and left heel wound 02/13/25
Recent admission for acute HF and dysphagia 01/20/2025 until 01/24/2025
Acute on chronic HFrEF
ICM EF 20 to 25% by echo 12/19/2024
Severe TR with PAP 63 mmHg
Chronic dysphagia, chronic abdominal pain
CAD s/p CABG with VILLAFUERTE to LAD, saphenous vein to diagonal, saphenous vein to obtuse marginal at [facility] 08/26/24
Postop VF arrest
Patent VILLAFUERTE to LAD, patent SVG to diagonal, patent SVG to OM by postop cardiac cath
s/p Martini Saint Eric SC ICD at [facility] 08/2024
h/o C. difficile postop CABG at [facility]
Anaphylactic aspirin allergy with previous mild allergic reaction during attempted aspirin desensitization therapy at [facility] 08/24/24
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
no options on peripheral angiogram 02/16/25, outpatient eval for Limflow procedure for known obliterative small vessel disease
DM 2
Diabetic neuropathy
Lupus
Hypertension
Dyslipidemia
ANTONIO on CKD4
Echo 07/2024: tricuspid regurgitation increased from trace to severe and systolic pulmonary artery pressure previously was estimated at 25 to 30 mmHg and now is estimated at 63 mmHg.
Echo 12/09/24: finds severely reduced left ventricular systolic function with ejection fraction of 20-25%. Global hypokinesis with septal akinesis. Stage III diastolic dysfunction. Moderate mitral regurgitation, severe tricuspid regurgitation with
estimated pulmonary artery pressure of 63 mmHg.
Right heart catheterization February 21, 2025:
RA pressure 34, RV pressure 64/18, PA pressure 68/29, pulmonary capillary wedge pressure 43. Cardiac output is 1.94 with a cardiac index of 1.11. SVR is 2480 [id number](-5)
Right heart 02/24/2025: 58/22, right atrial pressure 16, cardiac index 2.5 on 02/23
Plan:
-Patient with Cre up to 1.6 on 02/28/25 and weight up 2 lbs, although bed scale vs standing scale weight. After review with nephrology made a plan to give Lasix 80 mg IV x1, held the PO dose, orders placed by me.
-Diuresed well following milrinone infusion that was started 02/21/25 and ran until 02/24/2025.
-Patient was taking Lasix 80 mg PO BID prior to admission
-Patient with ICM, EF 20 to 25% by echo 12/09/2024, no need to repeat echo
-Outpatient dose of Toprol-XL 25 mg daily has been continued, but would consider holding in the setting of acute HF.
-Outpatient dose of losartan was changed to Entresto earlier this admission, but hypotension and ANTONIO on labs and VS reviewed by me 02/27/2025 so Entresto on hold again.
-Patient was started on Jardiance [address] Estrada 10/2024, but this medication appears to have been stopped with her ongoing GI symptoms and is not currently ordered and she was not taking it prior to admission
-Outpatient dose of spironolactone 25 mg daily was continued initially, but then held for peripheral arteriogram 02/16/25 and has not been restarted due to ANTONIO.
-Outpatient dose of amiodarone 200 mg daily has been continued for her post CABG VF arrest. No known history of atrial arrhythmia and patient is not chronically on OAC. QTc 452 ms by ECG 02/21/2025
-Outpatient dose of Plavix 75 mg daily has been continued and this will presumably be long-term as patient cannot take aspirin due to history of anaphylactic allergy
-Patient continues with GI symptoms and had upper endoscopy 01/23/2025, but they did not find any obvious findings. Despite attempts at colonoscopy prep it was inadequate and colonoscopy was not attempted and she was recommended to follow-up as an
outpatient. New to [facility] this admission and she ate 100% of her breakfast 02/21/25
-Patient continues with foot wound and TT to vascular surgery to call patient's daughter, Erika, to give an update on plan.
HPI: Patient came to [facility] ER today with increased LE edema and left heel wound and is now admitted for foot wound and acute HF, cardiology has been consulted. Patient previously admitted to [facility] 08/20/2024 until 08/26/2024 with NSTEMI and MV CAD.
Patient with previous anaphylactic allergy to aspirin and there was an attempt at aspirin desensitization starting on the night of 08/21/2024 and patient had swollen eyes and hand tremors so desensitization therapy was stopped and the family was not
interested in another attempt. It then came to light that the patient's family member is a senior certified composites technician at [facility] and the family requested transfer which was performed on 08/26/2024. As noted above patient had CABG and postop suffered VF
arrest. Post CABG cardiac cath showed patent grafts and patient ultimately had an Martini Saint Eric ICD placed. [facility] also right toe amputations that were performed all as part of her postop
course. Patient was just admitted to [facility] 01/20/2025 until 01/24/2025 with acute HFrEF and dysphagia, but GI workup was unrevealing in part because colonoscopy prep was inadequate. Left heel wound has been getting worse at home and patient is known
to the vascular surgery service, sounds like at some point she was supposed to get a peripheral angiogram that was delayed due to her last admission. Also, patient missed her cardiology visit on 02/07/2025 and called the next day to let us know that
she was gaining weight and at that time Dr. Estrada increased her Lasix to 80 mg BID, the patient denies any decrease in urine output and LE edema only worsened.
Progress Note - Rubber Roller Grinder
Subjective
Date of Service: February 28, 2025
She says she feels fine and her daughter confirms that patient has not complaints
Objective
Labs:
02/27/25 07:57
02/28/25 06:55
Labs
Hgb 9.2 g/dL (12.0-16.0) L 02/27/25 07:57
Hct 30.2 % (37.0-47.0) L 02/27/25 07:57
Plt Count 141 10^3/uL (130-400) 02/27/25 07:57
PT Cancelled 02/26/25 06:00
INR Cancelled 02/26/25 06:00
APTT Cancelled 02/26/25 06:00
Sodium 135 mmol/L (135-145) 02/28/25 06:55
Potassium 4.2 mmol/L (3.5-5.1) 02/28/25 06:55
BUN 48 mg/dl (7-17) H 02/28/25 06:55
Creatinine 1.6 mg/dL (0.6-1.0) H 02/28/25 06:55
Glucose 145 mg/dl (70-99) H 02/28/25 06:55
Vital Signs and I&O:
Vital Signs
Temp Pulse Resp BP Pulse Ox
99.1 F 79 16 110/59 93
02/28/25 07:25 02/28/25 07:25 02/28/25 07:25 02/28/25 07:02/28/25 08:20
Vital Signs
Temp Pulse Resp BP Pulse Ox
99.1 F 79 16 110/59 93
02/28/25 07:02/28/25 07:25 02/28/25 07:25 02/28/25 07:25 02/28/25 08:20
Intake & Output
02/26/25 02/27/25 02/28/25 03/01/25
06:59 06:59 06:59 06:59
Intake Total 605 / 605 340 / 340 360 / 360 320 / 320
Output Total 440 / 440
Balance 165 / 165 340 / 340 360 / 360 320 / 320
Physical Exam
Physical Exam
GEN: NAD, flat affect
HEENT: EOMI
LUNGS: RA. No audible wheeze
CV: SR on tele
[2025-02-28 11:53] LABS: Glucose - Point of Care 145 mg/dl (70-99)
[2025-02-28] MEDS: NOVOLOG FLEXPEN-MODERATE RESISTANCE SC (12:09)
[2025-02-28] MEDS: LASIX 80 MG IV (12:18)
--- NOTE | 2025-02-28 16:42 | W.PN.NEPH.PH ---
Today's Communication / Plan
-
IV Lasix
Assessment/Plan
-
64-year-old female with history of ischemic cardiomyopathy, severe tricuspid regurgitation, CAD status post CABG August 2024, CHF with an EF of 20%, insulin-dependent diabetes, peripheral vascular disease, diabetic neuropathy and lupus, history of
V-fib arrest status post ICD who has been seen by GI inpatient including most recently early January 2025 for weight loss and dysphagia now back with heart failure and foul-smelling wound. She has been hospitalized multiple times this year for CABG,
pneumonia, toe amputation, abdominal pain, dysphagia and 60 pound weight loss over 6 months since her surgery. She has been admitted since February 13 and underwent lower extremity angiogram for significant PAD and wound.
Underwent right heart catheterization today showed severely reduced cardiac output and index with elevated right and left ventricular filling pressures significant volume overload.
Renal was consulted for acute kidney injury with a creatinine of 1.6
Impression.
Acute kidney injury multifactorial cardiorenal IV contrast exposure baseline creatinine 1.
Ischemic cardiomyopathy ejection fraction 20%. Decompensated
Diabetes
Severe PAD with necrotic left heel.
CAD/ICD
History of cardiac arrest
Plan.
Restart IV Lasix
she is off O2
agree holding Entresto with ANTONIO
holding ALdactone
Follow BMP
May require right heart cath and/or return of inotrope
-
-
Date of Service: February 28, 2025
CC / HPI / ROS
-
Chief Complaint:
Shortness of breath
History of Present Illness:
CHF severe ischemic cardiomyopathy with ANTONIO
ANTONIO/creatinine up to 1.6
BP low stable
wt is up in bed scale
Review of Systems:
No chest pain or shortness of breath
Nonoliguric
Labs
-
Labs:
WBC 4.6 10^3/uL (4.8-10.8) L 02/27/25 07:57
RBC 4.06 10^6/uL (4.20-5.40) L 02/27/25 07:57
Hgb 9.2 g/dL (12.0-16.0) L 02/27/25 07:57
Hct 30.2 % (37.0-47.0) L 02/27/25 07:57
Plt Count 141 10^3/uL (130-400) 02/27/25 07:57
Sodium 135 mmol/L (135-145) 02/28/25 06:55
Potassium 4.2 mmol/L (3.5-5.1) 02/28/25 06:55
Chloride 99 mmol/L (98-107) 02/28/25 06:55
Carbon Dioxide 29 mmol/L (22-30) 02/28/25 06:55
BUN 48 mg/dl (7-17) H 02/28/25 06:55
Creatinine 1.6 mg/dL (0.6-1.0) H 02/28/25 06:55
eGFR 35.79 02/28/25 06:55
Glucose 145 mg/dl (70-99) H 02/28/25 06:55
Calcium 7.8 mg/dl (8.4-10.2) L 02/28/25 06:55
Phosphorus 4.2 mg/dl (2.5-4.5) 02/21/25 13:07
Qxu-Y-Vwkvwsxwaik Pept 99187 pg/ml 02/17/25 04:42
Albumin 3.5 g/dl (3.5-5.0) 02/21/25 13:07
Physical Exam
-
Vital Signs:
Vital Signs
Temp Pulse Resp BP Pulse Ox
99.8 F 75 16 106/57 91
02/28/25 15:03 02/28/25 15:03 02/28/25 15:03 02/28/25 15:03 02/28/25 15:03
Cardiovascular:: Regular rate and rhythm
Respiratory:: Bilateral: Coarse
Lung Excursion:: Normal
Abdomen:: Nontender and Soft
Bowel Sounds:: Normal
Extremity Edema:: +1: Bilateral:
[2025-02-28 16:52] LABS: Glucose - Point of Care 194 mg/dl (70-99)
[2025-02-28 21:04] LABS: Glucose - Point of Care 198 mg/dl (70-99)
[2025-02-28] MEDS: LANTUS 0.15 UNITS SC (21:07)
[2025-03-01] VITALS (7 sets, daily range): BP systolic 97–145; BP diastolic 47–65; BMI 27.0
--- NOTE | 2025-03-01 06:12 | PTCARENOTE ---
While using bathroom, patient pointed to underwear showing small amount of dark red blood. Patient had multiple formed light brown bowel movements throughout the night without evidence of bleeding. Denies any pain. BP 101/53, HR 68, 96% on RA, 20
RR, 97.8 temp. CERTIFIED NURSING ASSISTANT INSTRUCTOR made aware, order for CBC, heme test stools, and plavix placed on hold. Plan of care ongoing.
--- NOTE | 2025-03-01 06:45 | W.PN.UPDATE ---
Update Note
Progress Note Update
~5:15 Rec'd TT that patient noted to have small amount of blood in her underwear when she went to the bathroom, first noted occurrence per RN. Asked RN to put pad in underwear and hat in toilet, so we can see how much. Evaluated patient, patient
states she has no pain, has not had any previous episodes of bleeding from rectum, no hx of hemorrhoids. Ordered CBC and hemetest stools. Plavix put on hold until evaluated by attending provider.�
[2025-03-01 06:58] LABS: Glucose - Point of Care 149 mg/dl (70-99)
[2025-03-01 07:49] LABS: Hematocrit 30.3 % (37.0-47.0); Hemoglobin 9.5 g/dL (12.0-16.0); Mean Corp Hgb Conc. 31.4 g/dL (33.0-37.0); Mean Corpuscular Volume 73.0 fL (81.0-99.0); Platelet Count 159 10^3/uL (130-400); Red Cell Dist. Width 18.0 % (11.5-14.5)
[2025-03-01 08:00] LABS: Blood Urea Nitrogen 52 mg/dl (7-17); Calcium 8.1 mg/dl (8.4-10.2); Carbon Dioxide 31 mmol/L (22-30); Chloride 99 mmol/L (98-107); Estimated Creatinine Clearance 38 ml/min; Glucose 129 mg/dl (70-99); Potassium 4.2 mmol/L (3.5-5.1); Sodium 136 mmol/L (135-145); eGFR 42.01
--- NOTE | 2025-03-01 08:38 | W.PN.HOSP.TC ---
Today's Communication/Plan
-
await dc planning per nephrology and cardiology
Assessment / Plan
Assessment / Plan
Encounter using Language line
Physical Exam
General: No Apparent Distress and Comfortable
HEENT: Moist mucous membranes and Atraumatic,
Respiratory: no rales ; No Wheezes, nasal cannula
Cardiac: S1/S2 and Regular Rhythm
GI: Soft and Non Tender
Musculoskeletal: No Clubbing remains with B/L LE pitting edema improved
Skin: Left heel dressing
Neuro: Alert, Oriented and Nonfocal/grossly intact; No Facial Droop or Tremors
Psych: Calm;
64 female presented with worsening leg edema and left heel wound
# Acute on severe chronic HFrEF
#Severe TR
#Acute hypoxic respiratory failure, resolved
ECHO -11/2024-HFrEF with EF of 20 to 25%, global hypokinesis with septal akinesis, severe TR with PASP elevated to 63, moderate MR.
Daily weight. Strict I &O
Patient with worsening renal failure and not much improvement in weight
Underwent right heart catheterization which showed severely reduced cardiac output and index. Elevated right and left ventricular filling pressure
Wedge pressure 43.
Cardiac index severely reduced 1.11.
s/p Kenton-Susy catheter
off milrinone.
Overall, unable to advance guideline directed medical therapy for heart failure due to low blood pressure and renal insufficiency.
Patient was started on Entresto and Toprol. but low BP and rising creatinine, stopped Entresto and c/w Lasix for now
Currently on Lasix 80 mg p.o. daily dosing improvement in weight. Resume Lasix to avoid fluid retention.
Appreciate cardiology and nephrology input
# Acute kidney injury due to cardiorenal syndrome
#Mild hyperkalemia possibly due to losartan in the setting of elevated creatinine
Creatinine continues to rise with low BP, unable to tolerate Entresto and Aldactone.
Received dose of Zaroxolyn 02/20/2025
Status post right heart catheterization
Potassium normalized
Nephrology is following.
# Nausea , resolved with treatment of heart failure and course of Reglan .
Due to combination of Gastroparesis or congestive gastropathy
US did not show acute findings.
No fever or leukocytosis, she denies constipation or diarrhea, reports normal BM.
c/w IV PPI
off Augmentin.
EGD 01/23/25 showed focal gastritis
c/w PPI , trial of short course of Reglan. Will complete 7-day course.
# Left heel ulcerated non healing wound due to severe PAD and underlying diabetes.
Patient and family decided to come to the hospital due to worsening wound with foul-smelling.
s/p IR for right central line placement.
s/p arteriogram 02/16 showed significant PAD, not amenable to stent placement.
Negative blood culture
Empiric antibiotic is finished.
Tylenol for pain
Appreciate ID & Vascular surgery help, f/u in office with Dr Hraris.
#Mild thrombocytopenia
Continue to monitor
Platelets improved and stabilized 150.
# Hypokalemia, replaced
#Normocytic anemia-Anemia of chronic disease
Continue to monitor hemoglobin.
Transfuse for hemoglobin less than 7
#Type 2 diabetes mellitus-
ISS
Increase dose of Lantus
POC appropriate
#SLE-
Prior medications on admission, was on prednisone.
#Essential hypertension-
Blood pressure improved.
#Hyperlipidemia-
# h/o V fib arrest s/p ICD
- cont amiodarone
#Peripheral diabetic neuropathy-
#History of GERD-
IV PPI
#CAD with Recent CABG-
She denies chest pain.
Troponin negative X 2
- 08/2024
- cont Plavix.
#Anxiety/depression-
Continue citalopram 20 mg.
DVT prophylaxis-
Continue subcu hep
CODE STATUS-
Full code
Total time spent to see the patient, examine the patient, review data and lab result, discuss treatment plan with patient, nursing staff around 55 minutes
Anticipated Discharge: Within 24 hours
Subjective/Interval History
-
Date of Service: March 01, 2025
No complaints
No chest pain
Objective Data
-
Labs:
Laboratory Results
03/01/25
06:45
WBC 4.4 L
Hgb 9.5 L
Hct 30.3 L
Plt Count 159
Sodium 136
Potassium 4.2
Chloride 99
Carbon Dioxide 31 H
BUN 52 H
Creatinine 1.4 H
Glucose 129 H
Calcium 8.1 L
Vital Signs:
Vital Signs
Temp Pulse Resp BP Pulse Ox
97.9 F 68 16 98/47 95
03/01/25 07:42 03/01/25 07:42 03/01/25 07:42 03/01/25 07:42 03/01/25 07:42
I&O
02/28/25 03/01/25 03/02/25
06:59 06:59 06:59
Intake Total 360 / 360 1360 / 1360
Balance 360 / 360 1360 / 1360
[2025-03-01] MEDS: NOVOLOG FLEXPEN-MODERATE RESISTANCE SC (08:52)
[2025-03-01] MEDS: DESENEX/MITRAZOL/ZEASORB 1 APPLIC TOPICAL ×2 (09:35→20:16)
[2025-03-01] MEDS: DAKIN'S SOLUTION 0.125% 1/4 STRENGTH 1 ML TOPICAL (09:35)
[2025-03-01] MEDS: PROTONIX 40 MG PO (09:36)
[2025-03-01] MEDS: LIPITOR 40 MG PO (09:36)
[2025-03-01] MEDS: HEPARIN 5000 UNITS SC ×2 (09:36→20:10)
[2025-03-01] MEDS: PACERONE 200 MG PO (09:36)
[2025-03-01] MEDS: LASIX 80 MG PO (11:28)
[2025-03-01] MEDS: TOPROL XL 25 MG PO (11:28)
--- NOTE | 2025-03-01 11:43 | W.PN.NEPH.PH ---
Today's Communication / Plan
-
P.o. Lasix
Assessment/Plan
-
64-year-old female with history of ischemic cardiomyopathy, severe tricuspid regurgitation, CAD status post CABG August 2024, CHF with an EF of 20%, insulin-dependent diabetes, peripheral vascular disease, diabetic neuropathy and lupus, history of
V-fib arrest status post ICD who has been seen by GI inpatient including most recently early January 2025 for weight loss and dysphagia now back with heart failure and foul-smelling wound. She has been hospitalized multiple times this year for CABG,
pneumonia, toe amputation, abdominal pain, dysphagia and 60 pound weight loss over 6 months since her surgery. She has been admitted since February 13 and underwent lower extremity angiogram for significant PAD and wound.
Underwent right heart catheterization today showed severely reduced cardiac output and index with elevated right and left ventricular filling pressures significant volume overload.
Renal was consulted for acute kidney injury with a creatinine of 1.6
Impression.
Acute kidney injury multifactorial cardiorenal IV contrast exposure baseline creatinine 1.
Ischemic cardiomyopathy ejection fraction 20%. Decompensated
Diabetes
Severe PAD with necrotic left heel.
CAD/ICD
History of cardiac arrest
Plan.
Restart PO Lasix
she is off O2
No Entresto
No Aldactone
Follow BMP
DC planning
-
-
Date of Service: March 01, 2025
CC / HPI / ROS
-
Chief Complaint:
Shortness of breath
History of Present Illness:
CHF severe ischemic cardiomyopathy with ANTONIO
ANTONIO/creatinine down to 1.4
BP stable
wt is stable
Review of Systems:
No chest pain or shortness of breath
Nonoliguric
Labs
-
Labs:
WBC 4.4 10^3/uL (4.8-10.8) L 03/01/25 06:45
RBC 4.15 10^6/uL (4.20-5.40) L 03/01/25 06:45
Hgb 9.5 g/dL (12.0-16.0) L 03/01/25 06:45
Hct 30.3 % (37.0-47.0) L 03/01/25 06:45
Plt Count 159 10^3/uL (130-400) 03/01/25 06:45
Sodium 136 mmol/L (135-145) 03/01/25 06:45
Potassium 4.2 mmol/L (3.5-5.1) 03/01/25 06:45
Chloride 99 mmol/L (98-107) 03/01/25 06:45
Carbon Dioxide 31 mmol/L (22-30) H 03/01/25 06:45
BUN 52 mg/dl (7-17) H 03/01/25 06:45
Creatinine 1.4 mg/dL (0.6-1.0) H 03/01/25 06:45
eGFR 42.01 03/01/25 06:45
Glucose 129 mg/dl (70-99) H 03/01/25 06:45
Calcium 8.1 mg/dl (8.4-10.2) L 03/01/25 06:45
Phosphorus 4.2 mg/dl (2.5-4.5) 02/21/25 13:07
Sua-I-Pmnlefbciwf Pept 95592 pg/ml 02/17/25 04:42
Albumin 3.5 g/dl (3.5-5.0) 02/21/25 13:07
Physical Exam
-
Vital Signs:
Vital Signs
Temp Pulse Resp BP Pulse Ox
97.3 F 72 20 145/52 91
03/01/25 11:04 03/01/25 11:04 03/01/25 11:04 03/01/25 11:04 03/01/25 11:04
Cardiovascular:: Regular rate and rhythm
Respiratory:: Bilateral: Coarse
Lung Excursion:: Normal
Abdomen:: Nontender and Soft
Bowel Sounds:: Normal
Extremity Edema:: None: Bilateral:
[2025-03-01 11:54] LABS: Glucose - Point of Care 161 mg/dl (70-99)
[2025-03-01] MEDS: NOVOLOG FLEXPEN-MODERATE RESISTANCE 1 UNITS SC (12:43)
[2025-03-01] MEDS: PLAVIX 75 MG PO (14:15)
--- NOTE | 2025-03-01 14:22 | W.PN.CARDCBS ---
Addendum entered and electronically signed by Roderick Dixon MD 03/01/25 16:22:
I saw and examined the patient.
The WASTE ELIMINATION or PA's note was reviewed and I agree with the note.
Comment: General: Well developed, well nourished in NAD.
Neck: Supple, no JVD, HJR, carotids +2 B/L, no bruits bilaterally.
Heart: Non displaced PMI, RRR, no murmurs, No S3, S4, no rubs.
Lungs: Scattered rhonchi at the bases
Extremities: No clubbing, cyanosis or edema bilaterally.
Neuro: Grossly nonfocal, awake, alert and oriented x3.
Stable cardiology status for discharge. Discussed with patient's by phone at bedside.
Original Note:
Today's Communication / Plan
-
Cont Lasix 80 mg PO daily
Impression / Plan
-
Primary care provider: Keli Gonzalez MD
Primary framing machine tender: Lan Estrada MD
Impression:
Admitted with LE edema and left heel wound 02/13/25
Recent admission for acute HF and dysphagia 01/20/2025 until 01/24/2025
Acute on chronic HFrEF
ICM EF 20 to 25% by echo 12/19/2024
Severe TR with PAP 63 mmHg
Chronic dysphagia, chronic abdominal pain
CAD s/p CABG with VILLAFUERTE to LAD, saphenous vein to diagonal, saphenous vein to obtuse marginal at [facility] 08/26/24
Postop VF arrest
Patent VILLAFUERTE to LAD, patent SVG to diagonal, patent SVG to OM by postop cardiac cath
s/p Martini [employer] SC ICD at [facility] 08/2024
h/o C. difficile postop CABG at [facility]
Anaphylactic aspirin allergy with previous mild allergic reaction during attempted aspirin desensitization therapy at [facility] 08/24/24
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
no options on peripheral angiogram 02/16/25, outpatient eval for Limflow procedure for known obliterative small vessel disease
DM 2
Diabetic neuropathy
Lupus
Hypertension
Dyslipidemia
ANTONIO on CKD4
Echo 07/2024: tricuspid regurgitation increased from trace to severe and systolic pulmonary artery pressure previously was estimated at 25 to 30 mmHg and now is estimated at 63 mmHg.
Echo 12/09/24: finds severely reduced left ventricular systolic function with ejection fraction of 20-25%. Global hypokinesis with septal akinesis. Stage III diastolic dysfunction. Moderate mitral regurgitation, severe tricuspid regurgitation with
estimated pulmonary artery pressure of 63 mmHg.
Right heart catheterization February 21, 2025:
RA pressure 34, RV pressure 64/18, PA pressure 68/29, pulmonary capillary wedge pressure 43. Cardiac output is 1.94 with a cardiac index of 1.11. SVR is 2480 [id number])
Right heart 02/24/2025: 58/22, right atrial pressure 16, cardiac index 2.5 on 02/23
Plan:
-Cre improved to 1.4 on 03/01/25 after Lasix 80 mg IV x1 on 02/28/25. Now ordered Lasix 80 mg PO daily. Patient was taking Lasix 80 mg PO BID prior to admission
-Weight stable at 152 lbs.
-Diuresed well following milrinone infusion that was started 02/21/25 and ran until 02/24/2025.
-Patient with ICM, EF 20 to 25% by echo 12/09/2024
-Outpatient dose of Toprol-XL 25 mg daily has been continued, but would consider holding in the setting of acute HF.
-Outpatient dose of losartan was changed to Entresto earlier this admission, but hypotension and ANTONIO on labs and VS reviewed by me 02/27/2025 so Entresto on hold again.
-Patient was started on Jardiance [address] Estrada 10/2024, but this medication appears to have been stopped with her ongoing GI symptoms and is not currently ordered and she was not taking it prior to admission
-Outpatient dose of spironolactone 25 mg daily was continued initially, but then held for peripheral arteriogram 02/16/25 and has not been restarted due to ANTONIO.
-Outpatient dose of amiodarone 200 mg daily has been continued for her post CABG VF arrest. No known history of atrial arrhythmia and patient is not chronically on OAC. QTc 452 ms by ECG 02/21/2025
-Outpatient dose of Plavix 75 mg daily has been continued and this will presumably be long-term as patient cannot take aspirin due to history of anaphylactic allergy
-Patient going home with VN
HPI: Patient came to [facility] ER today with increased LE edema and left heel wound and is now admitted for foot wound and acute HF, cardiology has been consulted. Patient previously admitted to [facility] 08/20/2024 until 08/26/2024 with NSTEMI and MV CAD.
Patient with previous anaphylactic allergy to aspirin and there was an attempt at aspirin desensitization starting on the night of 08/21/2024 and patient had swollen eyes and hand tremors so desensitization therapy was stopped and the family was not
interested in another attempt. It then came to light that the patient's family member is a senior tax technician at [facility] and the family requested transfer which was performed on 08/26/2024. As noted above patient had CABG and postop suffered VF
arrest. Post CABG cardiac cath showed patent grafts and patient ultimately had an Martini [employer] Eric ICD placed. Patient also had C. difficile postop in the [facility] there were also right toe amputations that were performed all as part of her postop
course. Patient was just admitted to [facility] 01/20/2025 until 01/24/2025 with acute HFrEF and dysphagia, but GI workup was unrevealing in part because colonoscopy prep was inadequate. Left heel wound has been getting worse at home and patient is known
to the vascular surgery service, sounds like at some point she was supposed to get a peripheral angiogram that was delayed due to her last admission. Also, patient missed her cardiology visit on 02/07/2025 and called the next day to let us know that
she was gaining weight and at that time Dr. Estrada increased her Lasix to 80 mg BID, the patient denies any decrease in urine output and LE edema only worsened.
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
Subjective
Date of Service: March 01, 2025
Says she feels fine
Objective
Labs:
03/01/25 06:45
03/01/25 06:45
Labs
Hgb 9.5 g/dL (12.0-16.0) L 03/01/25 06:45
Hct 30.3 % (37.0-47.0) L 03/01/25 06:45
Plt Count 159 10^3/uL (130-400) 03/01/25 06:45
PT Cancelled 02/26/25 06:00
INR Cancelled 02/26/25 06:00
APTT Cancelled 02/26/25 06:00
Sodium 136 mmol/L (135-145) 03/01/25 06:45
Potassium 4.2 mmol/L (3.5-5.1) 03/01/25 06:45
BUN 52 mg/dl (7-17) H 03/01/25 06:45
Creatinine 1.4 mg/dL (0.6-1.0) H 03/01/25 06:45
Glucose 129 mg/dl (70-99) H 03/01/25 06:45
Vital Signs and I&O:
Vital Signs
Temp Pulse Resp BP Pulse Ox
97.3 F 72 20 145/52 91
03/01/25 11:04 03/01/25 11:04 03/01/25 11:04 03/01/25 11:04 03/01/25 11:04
Vital Signs
Temp Pulse Resp BP Pulse Ox
97.3 F 72 20 145/52 91
03/01/25 11:04 03/01/25 11:04 03/01/25 11:04 03/01/25 11:04 03/01/25 11:04
Intake & Output
02/27/25 02/28/25 03/01/25 03/02/25
06:59 06:59 06:59 06:59
Intake Total 340 / 340 360 / 360 1360 / 1360
Balance 340 / 340 360 / 360 1360 / 1360
Physical Exam
Physical Exam
GEN: NAD, flat affect
LUNGS: RA.
CV: SR on tele
--- NOTE | 2025-03-01 14:41 | W.PN.UPDATE ---
Update Note
Progress Note Update
Saw and evaluated. Her wounds are stable and dry bilateral. No new concerning findings. They actually seem to be doing better than when I saw her in the office last. Multiple medical issues currently being managed noted. Based on all this I
discussed with the patient and her significant other recommendations for medical management of all her other issues currently. I will see her in the office in relatively short order follow-up and if still not healed (and medical issues stable),
will consider left lower extremity TADV procedure.
--- NOTE | 2025-03-01 15:23 | CM ---
Reviewed therapy notes, indication is for home health. Attempted to meet with patient, however, she was asleep. Placed a call to her daughter, Mik, to make aware of the indication on behalf of PT. She stated that she and patient would be
agreeable and she would like for VN. Will make referral.
Plan: Case management will continue to follow and assist with discharge planning. Will send referral to VN.
[2025-03-01 16:58] LABS: Glucose - Point of Care 202 mg/dl (70-99)
[2025-03-01] MEDS: NOVOLOG FLEXPEN-MODERATE RESISTANCE 3 UNITS SC (17:41)
[2025-03-01 21:27] LABS: Glucose - Point of Care 256 mg/dl (70-99)
[2025-03-01] MEDS: LANTUS 0.15 UNITS SC (22:36)
[2025-03-01] MEDS: NOVOLOG FLEXPEN-MODERATE RESISTANCE 5 UNITS SC (22:37)
[2025-03-02 03:00] VITALS: BP 101/57
[2025-03-02 07:00] VITALS: BP 110/51
[2025-03-02 07:05] LABS: Glucose - Point of Care 207 mg/dl (70-99)
[2025-03-02 08:11] VITALS: BMI 26.9
[2025-03-02 08:19] LABS: Blood Urea Nitrogen 49 mg/dl (7-17); Calcium 7.8 mg/dl (8.4-10.2); Carbon Dioxide 30 mmol/L (22-30); Chloride 101 mmol/L (98-107); Estimated Creatinine Clearance 48 ml/min; Glucose 186 mg/dl (70-99); Potassium 4.0 mmol/L (3.5-5.1); Sodium 139 mmol/L (135-145); eGFR 56.11
--- NOTE | 2025-03-02 09:01 | W.PN.HOSP.TC ---
Today's Communication/Plan
-
dc with home health
Assessment / Plan
Assessment / Plan
Encounter using Language line
Physical Exam
General: No Apparent Distress and Comfortable
HEENT: Moist mucous membranes and Atraumatic,
Respiratory: no rales ; No Wheezes, nasal cannula
Cardiac: S1/S2 and Regular Rhythm
GI: Soft and Non Tender
Musculoskeletal: No Clubbing remains with B/L LE pitting edema improved
Skin: Left heel dressing
Neuro: Alert, Oriented and Nonfocal/grossly intact; No Facial Droop or Tremors
Psych: Calm;
64 female presented with worsening leg edema and left heel wound
# Acute on severe chronic HFrEF
#Severe TR
#Acute hypoxic respiratory failure, resolved
ECHO -11/2024-HFrEF with EF of 20 to 25%, global hypokinesis with septal akinesis, severe TR with PASP elevated to 63, moderate MR.
Daily weight. Strict I &O
Patient with worsening renal failure and not much improvement in weight
Underwent right heart catheterization which showed severely reduced cardiac output and index. Elevated right and left ventricular filling pressure
Wedge pressure 43.
Cardiac index severely reduced 1.11.
s/p Sorrento-Susy catheter
off milrinone.
Overall, unable to advance guideline directed medical therapy for heart failure due to low blood pressure and renal insufficiency.
Patient was started on Entresto and Toprol. but low BP and rising creatinine, stopped Entresto and c/w Lasix for now
Currently on Lasix 80 mg p.o. daily dosing improvement in weight. Resumed Lasix to avoid fluid retention.
Appreciate cardiology and nephrology input
# Acute kidney injury due to cardiorenal syndrome
#Mild hyperkalemia possibly due to losartan in the setting of elevated creatinine
Creatinine continues to rise with low BP, unable to tolerate Entresto and Aldactone.
Received dose of Zaroxolyn 02/20/2025
Status post right heart catheterization
Potassium normalized
Nephrology is following.
# Nausea , resolved with treatment of heart failure and course of Reglan. Resolved.
Due to combination of Gastroparesis or congestive gastropathy
US did not show acute findings.
No fever or leukocytosis, she denies constipation or diarrhea, reported normal non bloody BM.
c/w PPI
off Augmentin.
EGD 01/23/25 showed focal gastritis
c/w PPI , s/p trial of short course of Reglan.
# Left heel ulcerated non healing wound due to severe PAD and underlying diabetes.
Patient and family decided to come to the hospital due to worsening wound with foul-smelling.
s/p IR for right central line placement.
s/p arteriogram 02/16 showed significant PAD, not amenable to stent placement.
Negative blood culture
Empiric antibiotic is finished.
Tylenol for pain
Appreciate ID & Vascular surgery help, f/u in office with Dr Harris.
#Mild thrombocytopenia
# Hypokalemia, replaced
#Normocytic anemia-Anemia of chronic disease
Stable HGB at 9
No bleeding noted.
#Type 2 diabetes mellitus-
ISS
Increase dose of Lantus
POC appropriate
#SLE-
Prior medications on admission, was on prednisone.
#Essential hypertension-
Blood pressure improved.
#Hyperlipidemia-
# h/o V fib arrest s/p ICD
- cont amiodarone
#Peripheral diabetic neuropathy-
#History of GERD-
PPI
#CAD with Recent CABG-
She denies chest pain.
Troponin negative X 2
- 08/2024
- cont Plavix.
#Anxiety/depression-
Continue citalopram 20 mg.
DVT prophylaxis-
Continue subcu hep
CODE STATUS-
Full code
Total discharge time spent to see the patient, examine the patient, review data and lab result, discuss discharge plan with patient, nursing staff around 55 minutes
Anticipated Discharge: Today
Subjective/Interval History
-
Date of Service: March 02, 2025
No complaints
Objective Data
-
Labs:
Laboratory Results
03/02/25
06:42
Sodium 139
Potassium 4.0
Chloride 101
Carbon Dioxide 30
BUN 49 H
Creatinine 1.1 H
Glucose 186 H
Calcium 7.8 L
Vital Signs:
Vital Signs
Temp Pulse Resp BP Pulse Ox
98.1 F 67 16 110/51 96
03/02/25 07:00 03/02/25 07:00 03/02/25 07:00 03/02/25 07:00 03/02/25 07:00
I&O
03/01/25 03/02/25 03/03/25
06:59 06:59 06:59
Intake Total 1360 / 1360 360 / 360
Balance 1360 / 1360 360 / 360
--- NOTE | 2025-03-02 09:01 | W.PN.UPDATE ---
Update Note
Progress Note Update
Addendum
Son Nicholas called for updates, answered his questions
End
[2025-03-02] MEDS: DESENEX/MITRAZOL/ZEASORB 1 APPLIC TOPICAL (09:08)
[2025-03-02] MEDS: DAKIN'S SOLUTION 0.125% 1/4 STRENGTH 473 ML TOPICAL (09:08)
[2025-03-02] MEDS: LASIX 80 MG PO (09:09)
[2025-03-02] MEDS: PLAVIX 75 MG PO (09:10)
[2025-03-02] MEDS: PROTONIX 40 MG PO (09:10)
[2025-03-02] MEDS: PACERONE 200 MG PO (09:11)
[2025-03-02] MEDS: HEPARIN 5000 UNITS SC (09:11)
[2025-03-02] MEDS: TOPROL XL 25 MG PO (09:11)
[2025-03-02] MEDS: LIPITOR 40 MG PO (09:11)
[2025-03-02] MEDS: NOVOLOG FLEXPEN-MODERATE RESISTANCE 3 UNITS SC (09:18)
--- NOTE | 2025-03-02 11:08 | WOUNDNOTE ---
WON RN NOTE: Followed up today with patient, nurse reports she will be discharged today. L heel has dried up nicely, dry intact brown eschar. Will continue with Betadine swab to eschar and dry dressing, teaching done with patient regarding wound
care and offloading. R heel and lateral foot stable, foam changed on lateral foot scab. Buttocks with nearly completely healed wounds, R buttock barely open. Skin prep and Exuderm thin changed, removed silicone foam. Supplies at bedside to take upon
discharge.
[2025-03-02 11:10] VITALS: BP 130/62
[2025-03-02 12:13] LABS: Glucose - Point of Care 120 mg/dl (70-99)
[2025-03-02] MEDS: NOVOLOG FLEXPEN-MODERATE RESISTANCE SC (12:22)
--- NOTE | 2025-03-02 12:37 | W.PN.CARDCBS ---
Today's Communication / Plan
-
stable for discharge today
check BMP 1 week after discharge - lab slip placed in chart
Impression / Plan
-
Primary care provider: Keli Gonzalez MD
Primary desktop support engineer: Lan Estrada MD
Impression:
Admitted with LE edema and left heel wound 02/13/25
Recent admission for acute HF and dysphagia 01/20/2025 until 01/24/2025
Acute on chronic HFrEF
ICM EF 20 to 25% by echo 12/19/2024
Severe TR with PAP 63 mmHg
Chronic dysphagia, chronic abdominal pain
CAD s/p CABG with VILLAFUERTE to LAD, saphenous vein to diagonal, saphenous vein to obtuse marginal at [facility] 08/26/24
Postop VF arrest
Patent VILLAFUERTE to LAD, patent SVG to diagonal, patent SVG to OM by postop cardiac cath
s/p Martini [employer] SC ICD at [facility] 08/2024
h/o C. difficile postop CABG at [facility]
Anaphylactic aspirin allergy with previous mild allergic reaction during attempted aspirin desensitization therapy at [facility] 08/24/24
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
no options on peripheral angiogram 02/16/25, outpatient eval for Limflow procedure for known obliterative small vessel disease
DM 2
Diabetic neuropathy
Lupus
Hypertension
Dyslipidemia
ANTONIO on CKD4
Echo 07/2024: tricuspid regurgitation increased from trace to severe and systolic pulmonary artery pressure previously was estimated at 25 to 30 mmHg and now is estimated at 63 mmHg.
Echo 12/09/24: finds severely reduced left ventricular systolic function with ejection fraction of 20-25%. Global hypokinesis with septal akinesis. Stage III diastolic dysfunction. Moderate mitral regurgitation, severe tricuspid regurgitation with
estimated pulmonary artery pressure of 63 mmHg.
Right heart catheterization February 21, 2025:
RA pressure 34, RV pressure 64/18, PA pressure 68/29, pulmonary capillary wedge pressure 43. Cardiac output is 1.94 with a cardiac index of 1.11. SVR is 2480 [id number])
Right heart 02/24/2025: 58/22, right atrial pressure 16, cardiac index 2.5 on 02/23
Plan:
-Cre improved to 1.1 on 03/02/25. Now ordered Lasix 80 mg PO daily. Patient was taking Lasix 80 mg PO BID prior to admission
-Weight stable at 152 lbs.
-Diuresed well following milrinone infusion that was started 02/21/25 and ran until 02/24/2025.
-Patient with ICM, EF 20 to 25% by echo 12/09/2024
-Outpatient dose of Toprol-XL 25 mg daily has been continued, but would consider holding in the setting of acute HF.
-Outpatient dose of losartan was changed to Entresto earlier this admission, but hypotension and ANTONIO so Entresto (and Losartan) on hold again.
-check BMP 1 week after discharge. If stable, consider resuming ARB/Entresto or spironolactone in outpt setting.
-Patient was started on Jardiance [address] Estrada 10/2024, but this medication appears to have been stopped with her ongoing GI symptoms and is not currently ordered and she was not taking it prior to admission
-Outpatient dose of spironolactone 25 mg daily was continued initially, but then held for peripheral arteriogram 02/16/25 and has not been restarted due to ANTONIO.
-Outpatient dose of amiodarone 200 mg daily has been continued for her post CABG VF arrest. No known history of atrial arrhythmia and patient is not chronically on OAC. QTc 452 ms by ECG 02/21/2025
-Outpatient dose of Plavix 75 mg daily has been continued and this will presumably be long-term as patient cannot take aspirin due to history of anaphylactic allergy
-Patient going home today with VN
-scheduled outpt followup at [facility]
HPI: Patient came to [facility] ER today with increased LE edema and left heel wound and is now admitted for foot wound and acute HF, cardiology has been consulted. Patient previously admitted to [facility] 08/20/2024 until 08/26/2024 with NSTEMI and MV CAD.
Patient with previous anaphylactic allergy to aspirin and there was an attempt at aspirin desensitization starting on the night of 08/21/2024 and patient had swollen eyes and hand tremors so desensitization therapy was stopped and the family was not
interested in another attempt. It then came to light that the patient's family member is a senior psychiatric technician at [facility] and the family requested transfer which was performed on 08/26/2024. As noted above patient had CABG and postop suffered VF
arrest. Post CABG cardiac cath showed patent grafts and patient ultimately had an Martini [employer] ICD placed. Patient also had C. difficile postop in the [facility] there were also right toe amputations that were performed all as part of her postop
course. Patient was just admitted to [facility] 01/20/2025 until 01/24/2025 with acute HFrEF and dysphagia, but GI workup was unrevealing in part because colonoscopy prep was inadequate. Left heel wound has been getting worse at home and patient is known
to the vascular surgery service, sounds like at some point she was supposed to get a peripheral angiogram that was delayed due to her last admission. Also, patient missed her cardiology visit on 02/07/2025 and called the next day to let us know that
she was gaining weight and at that time Dr. Estrada increased her Lasix to 80 mg BID, the patient denies any decrease in urine output and LE edema only worsened.
Progress Note - Severity Of Illness Coordinator
Subjective
Date of Service: March 02, 2025
creat improved and wt stable on lower dose diuretic
off ARB/Entresto and Spironolatone due to ANTONIO on CKD
cont Toprol
denies SOB, CP
Objective
Labs:
03/01/25 06:45
03/02/25 06:42
Labs
Hgb 9.5 g/dL (12.0-16.0) L 03/01/25 06:45
Hct 30.3 % (37.0-47.0) L 03/01/25 06:45
Plt Count 159 10^3/uL (130-400) 03/01/25 06:45
PT Cancelled 02/26/25 06:00
INR Cancelled 02/26/25 06:00
APTT Cancelled 02/26/25 06:00
Sodium 139 mmol/L (135-145) 03/02/25 06:42
Potassium 4.0 mmol/L (3.5-5.1) 03/02/25 06:42
BUN 49 mg/dl (7-17) H 03/02/25 06:42
Creatinine 1.1 mg/dL (0.6-1.0) H 03/02/25 06:42
Glucose 186 mg/dl (70-99) H 03/02/25 06:42
Vital Signs and I&O:
Vital Signs
Temp Pulse Resp BP Pulse Ox
98 F 73 16 130/62 95
03/02/25 11:10 03/02/25 11:10 03/02/25 11:10 03/02/25 11:10 03/02/25 11:10
Vital Signs
Temp Pulse Resp BP Pulse Ox
98 F 73 16 130/62 95
03/02/25 11:10 03/02/25 11:10 03/02/25 11:10 03/02/25 11:10 03/02/25 11:10
Intake & Output
02/28/25 03/01/25 03/02/25 03/03/25
06:59 06:59 06:59 06:59
Intake Total 360 / 360 1360 / 1360 360 / 360
Balance 360 / 360 1360 / 1360 360 / 360
Physical Exam
Physical Exam
GEN: No distress, awake, Ox3
HEENT: supple, anicteric, mmm
LUNGS: CTA, no wheezes/rales
CV: Reg, S1/S2, 1/6 syst LSB, no murmur
ABD: soft, BS+, NT/ND
EXT: 1+ LE edema to thighs
NEURO: Gross non-focal
SKIN: No rash
--- NOTE | 2025-03-02 13:28 | W.DCSUMMARY ---
Discharge Summary
Discharge Data
Date of Admission: 02/13/25
Date of Discharge: 03/02/25
-
Pending Results: No
Hospital Course
64 years old female presented with exertional shortness of breath, volume overload and nonhealing left heel wound. Patient has history of congestive heart failure, advanced peripheral vascular disease and diabetes. Patient was evaluated by
vascular surgeon. She underwent left arteriogram with no endovascular options found. Patient received intravenous antibiotics and wound care. She was followed by ID doctor. She finished the course of treatment in the hospital. Her wounds
remained dry with no progression. Patient was evaluated by manager of engineering. She received intravenous diuretic therapy for congestive heart failure. At 1 point, she needed inotropic with diuretic therapy in the ICU setting to improve her volume
status and cardiac output. Patient had right heart catheterization on February 21 that showed elevated filling pressures. Patient had severe tricuspid regurgitation with moderate mitral regurgitation. Renal function was monitored. She was followed by
welder. Medications consistent with guideline directed therapy for heart failure could not be introduced in full range due to limitation of low blood pressure and renal impairment. Patient was able to tolerate Lasix dose of 80 mg daily. Her
weight remained stable and she lost weight during hospitalization. Patient felt better with improvement in volume status. Vascular surgery recommended outpatient follow-up. Patient was also seen by gastroenterology for nausea and vomiting. She
was given Reglan and Protonix. Patient started to improve and tolerated diet. Differential diagnosis include diabetic gastroparesis or congestive gastropathy secondary to congestive heart failure. Patient underwent physical therapy. manager access
was involved in discharge planning and was discharged home with home health services. Patient remained hemodynamic stable was discharged home in a stable condition.
Discharge Plan
-
Patient Disposition: Home with Home Care
Discharge Diagnosis/Procedures: Acute on chronic HFrEF
ICM EF 20 to 25% by echo
You were seen by manager of engineering and welder. You had cardiac procedure and adjusting your blood pressure medications as your blood pressure tolerated. Your kidney function was monitored. You had a frequent blood work.
You came in with congestive heart failure/fluid overload/peripheral arterial disease and nonhealing wounds in lower extremities. You are followed by infectious diseases doctor and vascular surgery. Vascular surgery recommends follow-up in the
office in short order.
You had nausea and vomiting with abdominal discomfort. You were seen by supervisor inspection room. Likely diabetic gastroparesis or congestive gastropathy from congestive heart failure.
Diet: 2 Gram Sodium and Restrict fluids to 48 oz
Activity: As tolerated
Driving Restrictions: Not until seen by your Dr
Blood Work: please get blood test - basic metabolic panel - one week after discharge
Specialty Instructions: Weigh Daily- Call MD for wt gain/loss 3 lbs overnight/5 lbs in 1 week
Activity Restrictions/Additional Instructions:
Wound Care Instructions
buttocks: clean with soap and water, barrier cream daily and prn soilage or skin prep Exuderm thin(Duoderm) change q 2-3 days and prn soilage
R heel and lateral foot: skin prep periwound and foams change q 3 days and prn soilage
L heel: clean with Dakin's prn odor, [place] ulcers with Betadine, dry dressing q other day and prn soilage
offload heels with either fiber filled boots or pillows under calves
air cushion when sitting, can take upon discharge.
Follow up with vascular or Podiatry
Instructions: *[facility] Heart Failure Instructions
Referrals:
Kemar Harris MD [Active, Vascular Surgery]
Referral Note: Our office will contact you with follow-up appointment
Etelvina Hubbard PA-C [Specified Professional Personl, Cardiology] - 04/04/25 3:20 pm
Referral Note: you have a cardiology followup appointment with Dr Estrada's physician psychologist research assistant Etelvina
Keli Hernandez MD [Family Provider, Internal Medicine] - in less than 1 week
Prescriptions:
New
furosemide 80 mg Tablet
80 mg PO DAILY Qty: 30 0RF
pantoprazole 40 mg Tablet,Delayed Release (Dr/Ec)
40 mg PO DAILY Qty: 30 0RF
metoprolol succinate 25 mg Tablet Extended Release 24 Hr
25 mg PO DAILY Qty: 30 0RF
Continued
atorvastatin 40 mg tablet
40 mg PO DAILY
amiodarone 200 mg tablet
200 mg PO QPM
clopidogrel 75 mg tablet
75 mg PO QPM
insulin aspart U-100 100 unit/mL solution
0 sliding scale dose SC AC
Patient Comments:
02/20/2025, pt.'s son unsure of dose.
hydroxychloroquine 200 mg Tablet
200 mg PO .SEE BELOW
Patient Comments:
02/20/2025, pt.'s son is unsure of frequency.
hydroxyzine pamoate 25 mg Capsule
25 mg PO BID PRN (Reason: anxiety)
Changed
insulin glargine [Lantus U-100 Insulin] 100 unit/mL solution
15 unit SC HS Qty: 0 0RF
Patient Comments:
02/20/2025, pharmacy and ecw records have this med. prescribed for 20 units at bedtime; however, pt.'s son is not sure what the dose is.
citalopram 20 mg tablet
20 mg PO DAILY Qty: 0 0RF
Patient Comments:
02/20/2025, pt.'s son is unsure of the frequency of this med.
Discontinued
furosemide 40 mg tablet
40 mg PO BID
losartan 25 mg Tablet
25 mg PO DAILY
Patient Comments:
02/20/2025, hold for SBP<100.
famotidine 40 mg Tablet
40 mg PO NOON
clonazepam 1 mg Tablet
1 mg PO BID
spironolactone 25 mg Tablet
12.5 mg PO NOON
gabapentin 800 mg Tablet
800 mg PO QPMPRN PRN (Reason: mild pain)
potassium chloride 10 mEq Tablet,Er Particles/Crystals
10 meq PO .SEE BELOW
Patient Comments:
02/20/2025, pt.'s son is unsure of frequency; prescribed BID per pharmacy records but ecw records say daily.
Discharge Orders:
Discharge Patient (As Directed); Ordered 03/02/25
Ordered By: Maegan Pitts
Discharge Date and Time
Discharge Date/Time: 03/02/25 14:40
Print Language: TAMAZIGHT
--- NOTE | 2025-03-02 13:30 | CM ---
Met with patient, her spouse and son who were at bedside. Advised them of VN being ordered and they were appreciative. Spoke with Eleni VN liason who stated that they will reach out to patient later to put her on the schedule.
Plan: Case management will continue to follow and assist with discharge planning. Home with VN.
--- NOTE | 2025-03-06 09:09 | PN.CDI ---
Addendum entered and electronically signed by Maegan Pitts MD 03/12/25 06:23:
PVD /Diabetes with Gas gangrene
Original Note:
CDI
- -
CDI:
Physician Documentation Request
Admit Date: 02/13/25 14:41
Dear Doctor,
Please review the following and provide your response in the progress notes.
Clinical Indicators:
Pt admitted with Left heel ulcerated wound due to DM & PAD
Foot Xray from 02/13, '2.4 cm lucency in the soft tissues of the heel. This likely represents gas residing within the known ulcer at this location. Moderate soft tissue swelling in this region .... Focal collection of gas within the soft tissues of
the heel; gas is presumably within the known ulcer at this location. There is moderate soft tissue swelling about the heel. ...'
Wound care note 02/14, ' ... L posterior heel with unstageable PI/PAD/DM, foul odor, painful and moderate purulent drainage. ....vascular to see later today. Further orders per vascular for L heel...'
Please provide a diagnosis for the above findings:
PVD /Diabetes with Gas gangrene
PVD /Diabetes only
Other ( please specify)
Use of terms such as suspected, likely, concern for, or probable (associated with a specific diagnosis that is being evaluated, monitored, or treated as if it exists) are acceptable and can be coded in the inpatient setting, when documented at the
time of discharge.
Thank you,
Tia Hung RN
CDI Specialist
[facility]
Please use your independent medical judgment in providing your response.
== END 2025-03-02 14:40 | disposition home health service (06) | DRG 286 ==
LOC: 4 EAST ACU 14:41
PROVIDERS: Hospitalist; Internal Medicine Interventional Cardiology; Nurse Practitioner Acute Care; Nurse Practitioner Family; Nurse Practitioner Primary Care; Physician Assistant Medical; Radiology Diagnostic Radiology; Specialist; ADMITTING PHYSICIAN Internal Medicine; CONSULT PHYSICIAN Internal Medicine; CONSULT PHYSICIAN Internal Medicine Critical Care Medicine; CONSULT PHYSICIAN Internal Medicine Infectious Disease; CONSULT PHYSICIAN Internal Medicine Nephrology; CONSULT PHYSICIAN Surgery Vascular Surgery; EMERGENCY PHYSICIAN Student in an Organized Health Care Education/Training Program; FAMILY PHYSICIAN Internal Medicine; OTHER PHYSICIAN Nuclear Medicine Nuclear Cardiology
PROC: B5181ZA Fluoroscopy of Superior Vena Cava using Low Osmolar Contrast, Guidance (ICD-10-PCS; 2025-02-13)
PROC: 02H633Z Insertion of Infusion Device into Right Atrium, Percutaneous Approach (ICD-10-PCS; 2025-02-13)
PROC: 04JY3ZZ Inspection of Lower Artery, Percutaneous Approach (ICD-10-PCS; 2025-02-16)
PROC: B41C1ZZ Fluoroscopy of Pelvic Arteries using Low Osmolar Contrast (ICD-10-PCS; 2025-02-16)
PROC: B41D1ZZ Fluoroscopy of Aorta and Bilateral Lower Extremity Arteries using Low Osmolar Contrast (ICD-10-PCS; 2025-02-16)
PROC: 4A023N6 Measurement of Cardiac Sampling and Pressure, Right Heart, Percutaneous Approach (ICD-10-PCS; 2025-02-21)
DX: E11.52 Type 2 diabetes mellitus with diabetic peripheral angiopathy with gangrene (principal); A48.0 Gas gangrene; I50.23 Acute on chronic systolic (congestive) heart failure; L89.313 Pressure ulcer of right buttock, stage 3; L89.323 Pressure ulcer of left buttock, stage 3; R57.0 Cardiogenic shock; J96.01 Acute respiratory failure with hypoxia; L97.428 Non-pressure chronic ulcer of left heel and midfoot with other specified severity; I70.262 Atherosclerosis of native arteries of extremities with gangrene, left leg; N17.9 Acute kidney failure, unspecified; L97.418 Non-pressure chronic ulcer of right heel and midfoot with other specified severity; R18.8 Other ascites; I11.0 Hypertensive heart disease with heart failure; E11.43 Type 2 diabetes mellitus with diabetic autonomic (poly)neuropathy; I25.10 Atherosclerotic heart disease of native coronary artery without angina pectoris; E78.00 Pure hypercholesterolemia, unspecified; G31.84 Mild cognitive impairment of uncertain or unknown etiology; J45.998 Other asthma; I44.7 Left bundle-branch block, unspecified; D63.8 Anemia in other chronic diseases classified elsewhere; M32.9 Systemic lupus erythematosus, unspecified; K21.9 Gastro-esophageal reflux disease without esophagitis; F32.A Depression, unspecified; F41.9 Anxiety disorder, unspecified; G89.29 Other chronic pain; I70.234 Atherosclerosis of native arteries of right leg with ulceration of heel and midfoot; R13.10 Dysphagia, unspecified; I25.5 Ischemic cardiomyopathy; I83.90 Asymptomatic varicose veins of unspecified lower extremity; M81.0 Age-related osteoporosis without current pathological fracture; K59.00 Constipation, unspecified; R63.4 Abnormal weight loss; E03.9 Hypothyroidism, unspecified; E87.6 Hypokalemia; I08.1 Rheumatic disorders of both mitral and tricuspid valves; I27.20 Pulmonary hypertension, unspecified; E83.51 Hypocalcemia; E11.69 Type 2 diabetes mellitus with other specified complication; K31.84 Gastroparesis; K31.89 Other diseases of stomach and duodenum; D69.6 Thrombocytopenia, unspecified; E87.5 Hyperkalemia; N28.1 Cyst of kidney, acquired; E11.649 Type 2 diabetes mellitus with hypoglycemia without coma; E11.65 Type 2 diabetes mellitus with hyperglycemia; Z60.3 Acculturation difficulty; Z90.49 Acquired absence of other specified parts of digestive tract; Z89.411 Acquired absence of right great toe; Z87.891 Personal history of nicotine dependence; Z86.19 Personal history of other infectious and parasitic diseases; Z83.3 Family history of diabetes mellitus; Z82.49 Family history of ischemic heart disease and other diseases of the circulatory system; Z88.6 Allergy status to analgesic agent; Z87.892 Personal history of anaphylaxis; Z79.02 Long term (current) use of antithrombotics/antiplatelets; Z79.84 Long term (current) use of oral hypoglycemic drugs; Z79.4 Long term (current) use of insulin; Z95.1 Presence of aortocoronary bypass graft; Z86.74 Personal history of sudden cardiac arrest; Z79.52 Long term (current) use of systemic steroids; Z87.01 Personal history of pneumonia (recurrent); I25.2 Old myocardial infarction; Z95.810 Presence of automatic (implantable) cardiac defibrillator
CPT/HCPCS: 36247; 36556; 71045; 71046; 73630; 75625; 75710; 76700; 76937; 77001; 80048; 80053; 80076; 81003; 81015; 82962; 83605; 83735; 83880; 84100; 84484; 85025; 85027; 85610; 85652; 85730; 86140; 86850; 86860; 86870; 86880; 86900; 86901; 86905; 87040; 87070; 87077; 87086; 87147; 87186; 87205; 93005; 93451; 96365; 96375; 97116; 97162; 97166; 97530; 97535; 99285; C1751; C1769; C1894; J2260; Q9967

== ENCOUNTER 2025-03-06 12:26 | Inpatient (IN) | payer OTHER, SELFPAY ==
[2025-03-06] VITALS (10 sets, daily range): BP systolic 114–143; BP diastolic 56–75; BMI 27.3; BMI 27.4
--- NOTE | 2025-03-06 08:42 | ED.GENMED ---
History of Present Illness
General
Chief Complaint: Chest Pain
Source: patient
Exam Limitations: none
Time Seen by Provider: 03/06/25 08:26
History of Present Illness
History of Present Illness:
See MDM
Past History
Past History
ED Past Medical History: Asthma, HTN, Hypercholesterolemia, IDDM, Psychiatric and Other (Cellulitis, diabetic neuropathy, peripheral vascular disease, lupus, chronic steroid use)
ED Past Surgical History: Cholecystectomy and Orthopedic (right great toe amputation)
Social History
Tobacco: Non-smoker
Alcohol: None
Drug: None
Personal:
Living: with family
Phy Exam
Physical Exam
Physical Exam:
See MDM
Scores
Heart Score for Chest Pain Patients
STEMI patient?: No
History: Moderately Suspicious
ECG: Nonspecific Repolarization
Age: >45 - <65 years
Risk Factors: >/= 3 Risk Factors or History of CAD
Troponin: </= Normal Limit
Heart Score for Chest Pain Patients: 5
Heart Score Risk: 20.3% MACE over next 6 weeks
Course
Orders/Labs/Results
Orders:
Orders
03/06/25 08:12
Electrocardiogram (*1) Urgent
Reason for Study: Chest Pain
EKG- Treatment ONCE
03/06/25 08:36
Nitroglycerin Sublingual [Nitrostat (Sublingual)] 0.4 mg SL NOW STA
03/06/25 08:44
Complete Blood Count/With Diff Urgent
Comprehensive Metabolic Panel Urgent
NT-proBNP Urgent
Troponin I Urgent
03/06/25 08:50
Morphine Sulfate 4 mg IV NOW STA
Ondansetron Injectable [Zofran] 4 mg IV NOW STA
03/06/25 09:01
CR Chest Portable - 1 View Urgent
Comment:
Reason For Exam: chest pain
Reason Study Needs to be Portable: Patient Unstable
03/06/25 09:33
Furosemide [Lasix] 80 mg IV NOW STA
Abnormal Lab Results
03/06/25
08:44
Hgb 10.4 L g/dL
(12.0-16.0)
Hct 34.3 L %
(37.0-47.0)
MCV 74.9 L fL
(81.0-99.0)
MCH 22.7 L pg
(27.0-31.0)
MCHC 30.3 L g/dL
(33.0-37.0)
RDW 19.4 H %
(11.5-14.5)
MPV 12.0 H fL
(7.4-10.4)
Absolute Lymphs (auto) 0.6 L 10^3/uL
(1.2-3.4)
Neutrophils % 83.9 H %
(42.2-75.2)
Lymphocytes % 11.1 L %
(20.5-51.1)
BUN 46 H mg/dl
(7-17)
Creatinine 1.1 H mg/dL
(0.6-1.0)
Glucose 211 H mg/dl
(70-99)
Total Protein 8.3 H g/dl
(6.3-8.2)
03/06/25 08:44
03/06/25 08:44
Vital Signs
Initial and Last Documented VS:
Initial Vital Signs
Temp Pulse Resp BP Pulse Ox
97.8 F 75 16 138/70 99
03/06/25 08:16 03/06/25 08:16 03/06/25 08:16 03/06/25 08:16 03/06/25 08:16
Last Documented Vital Signs
Temp Pulse Resp BP Pulse Ox
97.8 F 64 19 114/59 100
03/06/25 08:16 03/06/25 09:15 03/06/25 09:15 03/06/25 09:21 03/06/25 09:21
MDM/Problems Addressed
Differential Diagnosis Includes:
HPI and MDM Narrative:
64-year-old female presenting back to the emergency department. She was just discharged a few days ago where she had an admission for congestive heart failure and wound care. Patient has a longstanding history of congestive heart failure and
cardiovascular disease. Recent echocardiogram shows acute on chronic heart failure with ejection fraction to 20 to 25%. On my exam, patient has leg edema. at bedside unsure if it is unchanged. Patient complaining of chest discomfort. It
is not certain whether or not his he is exertional. Patient is somewhat bedbound.
Will give dose of nitroglycerin to see if this helps with chest pain. Regardless, will discuss case with cardiology
Physical exam
General: Weak and fatigued
HEENT: protecting airway
Neck: appears supple
CV: No evidence of cyanosis. Regular rate and rhythm
Resp: No accessory muscle use. Tachypnea. Crackles at bases
Abd: Non-distended
Extremities: +2 pitting edema bilateral lower extremities
Neuro: alert
Psych: Normal affect
Skin: Intact
Problems Addressed including Acute and Chronic Conditions affecting care:
1. Chest discomfort
Acuity: acute
Prognosis: stable
Details: Given her prior history, we will treat this as possible acute coronary syndrome. Will give dose of nitroglycerin and assess symptoms. Will obtain chest x-ray
2. Pulm edema
Acuity: acute
Prognosis: unstable
Details: Patient requiring IV Lasix. Patient was given a dose of nitroglycerin as well
Updates
9:30 AM chest x-ray concerning for pulmonary edema. Patient is tachypneic. Will give IV Lasix. Upon further questioning, it appears that patient had not taken her Lasix recently
At this point, patient now requiring 3 L nasal cannula
Differential Diagnosis (but not limited to): Acute coronary syndrome, noncardiac chest pain, congestive heart failure, pneumonia
Testing considered: D-dimer
Drug therapy (if applicable): OTC meds, please see d/c instruction regarding Rx drugs
Amount and/or Complexity of Data Reviewed
Clinical info obtained from: Patient
External data reviewed: N/A
Labs I independently reviewed (but not limited to): Troponin normal, elevated BNP
Radiology: N/A
Pulse Ox: not hypoxic
EKG independently reviewed: Normal sinus rhythm, left axis, no STEMI
Media Developer: Sinus rhythm
Critical Care: the high probability of a clinically significant, sudden or life threatening deterioration of the cardiopulmonary system(s) required my full and direct attention, intervention and personal management. The aggregate critical care time
was 33 minutes. This time is in addition to time spent performing reported procedures but includes the following:
[x] Data Review and interpretation
[x] Patient assessment and monitoring of vital signs
[x] Documentation
[x] Medication orders and management
Risk of Complication:
Social Determinants of health: Good social support
Discussed with other providers: Hospitalist
Escalation of Care includes Admit/Obs: Given tachypnea with pulmonary edema, will start IV Lasix and admit
Occasional wrong word or 'sound a like' substitutions may have occurred due to the inherent limitations of voice recognition software. Read the chart carefully and recognize, using context, where substitutions have occurred.
*Pulse Oximetry
SaO2: 95
Oxygen Mode of Delivery: Room air
Patient hypoxic: no
*Critical Care Note
Total Time (30-74mins, 75-104mins- exclusive of procedures): 33 min
ED Attending Note
-
Portions of this chart may have been created with voice recognition software.� Occasional wrong word or��sound alike� substitutions may have occurred due to the inherent limitations of voice recognition software.
Discharge Plan
Departure
Patient Disposition: Admit
Date of Disposition: 03/06/25
Time of Disposition: 09:49
Admit to: Telemetry
Presentation/result/management discussed w/ accepting MD/DO: Hospitalist
Discharge Problem:
Pulmonary edema
Prescriptions:
No Action
atorvastatin 40 mg tablet
40 mg PO DAILY
amiodarone 200 mg tablet
200 mg PO QPM
clopidogrel 75 mg tablet
75 mg PO QPM
insulin aspart U-100 100 unit/mL solution
0 sliding scale dose SC AC
Patient Comments:
02/20/2025, pt.'s son unsure of dose.
hydroxychloroquine 200 mg Tablet
200 mg PO .SEE BELOW
Patient Comments:
02/20/2025, pt.'s son is unsure of frequency.
hydroxyzine pamoate 25 mg Capsule
25 mg PO BID PRN (Reason: anxiety)
furosemide 80 mg Tablet
80 mg PO DAILY Qty: 30 0RF
pantoprazole 40 mg Tablet,Delayed Release (Dr/Ec)
40 mg PO DAILY Qty: 30 0RF
metoprolol succinate 25 mg Tablet Extended Release 24 Hr
25 mg PO DAILY Qty: 30 0RF
insulin glargine [Lantus U-100 Insulin] 100 unit/mL solution
15 unit SC HS Qty: 0 0RF
Patient Comments:
02/20/2025, pharmacy and ecw records have this med. prescribed for 20 units at bedtime; however, pt.'s son is not sure what the dose is.
citalopram 20 mg tablet
20 mg PO DAILY Qty: 0 0RF
Patient Comments:
02/20/2025, pt.'s son is unsure of the frequency of this med.
Interventions
Interventions:
*Risk Screen - Suicide Last Done: 03/06/25 08:16
*Neglect/Abuse Screening Last Done: 03/06/25 08:16
*ED- Fall Risk Assessment Last Done: 03/06/25 08:46
*ED COVID-19 Vaccine History Last Done: 03/06/25 08:46
ED- Cardiac Assessment Last Done: 03/06/25 08:47
Discharge Date and Time
Print Language: TELUGU
[2025-03-06] MEDS: NITROSTAT (SUBLINGUAL) 0.4 MG SL (08:43)
[2025-03-06] MEDS: MORPHINE SULFATE 4 MG IV (08:58)
[2025-03-06] MEDS: ZOFRAN 4 MG IV (08:58)
[2025-03-06 09:06] LABS: Hematocrit 34.3 % (37.0-47.0); Hemoglobin 10.4 g/dL (12.0-16.0); Mean Corp Hgb Conc. 30.3 g/dL (33.0-37.0); Mean Corpuscular Volume 74.9 fL (81.0-99.0); Nucleated Red Blood Cells % 0 %; Platelet Count 232 10^3/uL (130-400); Red Cell Dist. Width 19.4 % (11.5-14.5)
[2025-03-06 09:27] LABS: ALT (SGPT) 24 U/L (0-35); AST (SGOT) 27 U/L (14-36); Albumin 4.1 g/dl (3.5-5.0); Alkaline Phosphatase 126 U/L (38-126); Blood Urea Nitrogen 46 mg/dl (7-17); Calcium 9.2 mg/dl (8.4-10.2); Carbon Dioxide 25 mmol/L (22-30); Chloride 104 mmol/L (98-107); Glucose 211 mg/dl (70-99); Potassium 3.9 mmol/L (3.5-5.1); Sodium 144 mmol/L (135-145); Total Protein 8.3 g/dl (6.3-8.2); eGFR 56.11
[2025-03-06 09:39] LABS: Troponin I < 0.012 ng/ml
[2025-03-06] MEDS: LASIX 80 MG IV (09:50)
--- NOTE | 2025-03-06 12:17 | HPS.HSE ---
Family Physician
-
Family Physician: Keli Hernandez
Chief Complaint
-
Chest discomfort
History of Present Illness
64-year-old female with extensive cardiac history including prolonged hospital stay for CHF exacerbation requiring milrinone with recent echo with EF of 20 to 25% now presenting for chest discomfort. Described as sharp, pain can be illicited by
palpation at midsternal area. Patient is mostly bedbound, therefore cannot elaborate on exertional or not. Cannot lie flat since yesterday. After recent Discharge, patient has been been noncompliant with diuretics. B/l LE edema noted. Blood
pressure 122/64, respiratory rate 22, heart rate 63, saturating 88% on room air therefore was placed on 3 L. proBNP 24,700 elevated from 15,200 approximately 3 weeks ago. Troponin x 1 negative. X-ray with evidence of pulmonary edema, small
bilateral pleural effusions. Was given IV Lasix 80 mg in the ED.
Medical History
Past Medical History
Past Medical History: Reports Other (CAD, Asthma, Hypertension, Hyperlipidemia, DM, Diabetic neuropathy, Peripheral vascular disease, CHF (EF 20-25%), history of C. difficile colitis, Cellulitis, diabetic neuropathy, peripheral vascular disease,
lupus, chronic steroid use)
Past Surgical History: Reports Other (Cholecystectomy andright great toe amputation)
Social History
Tobacco: Former Smoker
Alcohol: None
Drug: None
Personal:
Living: With Family
Employment: Not Employed
Family History
Family History: Other (Mother of diabetes and heart related issues)
Allergies / Home Medications
Allergies reflects when Allergies were last updated in [facility].
Home Medications with original date entered in [facility]
Allergy/Medication List:
Allergies
Allergy/AdvReac Type Severity Reaction Status Date / Time
aspirin Allergy Anaphylaxis Verified 02/08/25 13:56
/rash
Home Medications
amiodarone 200 mg tablet 200 mg PO QPM Arrhythmia 01/20/25
atorvastatin 40 mg tablet 40 mg PO DAILY High Cholesterol 01/20/25
clopidogrel 75 mg tablet 75 mg PO QPM Blood Clot Prevention/Tx 01/20/25
insulin aspart U-100 100 unit/mL subcutaneous solution 7 sliding scale dose SC AC Diabetes 02/13/25
hydroxychloroquine 200 mg tablet 200 mg PO BID Lupus 02/20/25
citalopram 20 mg tablet 20 mg PO DAILY Mental Health/Anxiety #0 tabs 03/02/25
furosemide 80 mg tablet 80 mg PO DAILY #30 tabs 03/02/25
insulin glargine 100 unit/mL subcutaneous solution (Lantus U-100 Insulin) 15 unit (0.15 mL) SC HS Diabetes #0 mL 03/02/25
metoprolol succinate 25 mg tablet,extended release 24 hr 25 mg PO DAILY #30 tabs 03/02/25
pantoprazole 40 mg tablet,delayed release 40 mg PO DAILY #30 tabs 03/02/25
empagliflozin 10 mg tablet (Jardiance) 10 mg PO DAILY 03/06/25
gabapentin 400 mg tablet 400 mg PO TIDPRN PRN mild pain 03/06/25
Review of Systems
-
History Source: Patient
A 12 point ROS was completed and negative except as noted: Yes
Physical Exam
Vital Signs
Vital Signs
Temp Pulse Resp BP Pulse Ox
97.8 F 63 22 122/64 100
03/06/25 08:16 03/06/25 11:30 03/06/25 11:30 03/06/25 11:37 03/06/25 11:37
Physical Exam
General: No Apparent Distress and Comfortable
HEENT: Moist mucous membranes and Atraumatic
Respiratory: Crackles (At bases); No Wheezes
Cardiac: S1/S2 and Regular Rhythm
GI: Soft and Non Tender
Genito-urinary: No Cha
Musculoskeletal: No Clubbing, Edema, Left Lower Extremity (+2 pitting edema bilateral lower extremities) and Edema, Right Lower Extremity (+2 pitting edema bilateral lower extremities)
Skin: Other (Left heel dressing)
Neuro: Alert, Oriented, AO x 3 and Nonfocal/grossly intact; No Facial Droop or Tremors
Psych: Calm; No Agitated
Laboratory Results
-
03/06/25 08:44
03/06/25 08:44
Laboratory Results
Total Bilirubin 1.0 mg/dl (0.2-1.3) 03/06/25 08:44
AST 27 U/L (14-36) 03/06/25 08:44
ALT 24 U/L (0-35) 03/06/25 08:44
Alkaline Phosphatase 126 U/L (38-126) 03/06/25 08:44
Troponin I < 0.012 ng/ml 03/06/25 08:44
Data Reviewed
-
Diagnostic Radiology: Report Reviewed by me
Lab Data: Labs Reviewed by me
Impression/Plan
-
IMPRESSION:
64-year-old female with extensive cardiac history including prolonged hospital stay for CHF exacerbation requiring milrinone with recent echo with EF of 20 to 25% now presenting for chest discomfort. Acknowledged noncompliance. Admitted for CHF
exacerbation.
PLAN:
# Acute on severe chronic HFrEF
#B/L LE edema
#Severe TR
#Acute hypoxic respiratory failure
-2/2 to non compliance
-on 3L O2
-wean o2 as tolerated; goal o2>92%
-ECHO -11/2024-HFrEF with EF of 20 to 25%, global hypokinesis with septal akinesis, severe TR with PASP elevated to 63, moderate MR.
-Daily weight. Strict I &O
-Cont IV 80mg lasix daily, plan to dc on 80mg daily
-Cont BB
-Cont jardiance
#Chest Discomfort
-likely 2/2 to CHF exacerbation
-F/u Trops
# Nausea
-most likely 2/2 to CHF exacerbation; has had similar prior events inthe past and resolved with treatment of HF along with hx of Gastroparesis and/or congestive gastropathy
-LFTS WNLL
-supportive care
- PPI
-EGD 01/23/25 showed focal gastritis
-Zofran iv prn
# Left heel ulcerated non healing wound due to severe PAD and underlying diabetes.
Empiric antibiotic is finished last admission
Tylenol for pain
f/u in office with Dr Harris.
#Normocytic anemia-Anemia of chronic disease - stable, monitor
#Type 2 diabetes mellitus- ISS; Home regimen
#SLE: Cont Hydrochloroquine
#Essential hypertension: monitor with diuresis, SGLT2i; other GDMT not able to be placed due to renal function/lower BPs
#Hyperlipidemia: statin
# h/o V fib arrest s/p ICD: cont amiodarone
#Peripheral diabetic neuropathy: gabapentin
#History of GERD: PPI
#CAD with Recent CABG-Trend Trops: cont Plavix.
#Anxiety/depression: Continue citalopram 20 mg.
DVT prophylaxis-
Continue subcu hep
CODE STATUS-
Full code
--- NOTE | 2025-03-06 14:00 | PTCARENOTE ---
Pt arrived from ED at 1400. 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 Pt orientated to room with at bedside. VSS, on 3 L of o2, pt primarily [place]ib[place]ian speaking. plan of care ongoing.
--- NOTE | 2025-03-06 14:17 | VNURNOTE ---
Chart reviewed. Patient is current with VN. Will continue to follow hospital course and DC plans.
[2025-03-06 14:34] LABS: Troponin I < 0.012 ng/ml
[2025-03-06] MEDS: HEPARIN 5000 UNITS SC ×2 (16:19→23:03)
[2025-03-06 16:56] LABS: Glucose - Point of Care 160 mg/dl (70-99)
[2025-03-06] MEDS: NOVOLOG FLEXPEN 7 UNITS SC (18:23)
[2025-03-06] MEDS: NOVOLOG FLEXPEN-LOW RESISTANCE 1 UNITS SC (18:23)
[2025-03-06] MEDS: PLAVIX 75 MG PO (19:35)
[2025-03-06] MEDS: PACERONE 200 MG PO (19:35)
[2025-03-06] MEDS: PLAQUENIL 200 MG PO (19:35)
[2025-03-06 20:32] LABS: Troponin I < 0.012 ng/ml
[2025-03-06 21:39] LABS: Glucose - Point of Care 183 mg/dl (70-99)
[2025-03-06] MEDS: LANTUS 0.15 UNITS SC (21:44)
[2025-03-07] MEDS: TYLENOL 650 MG PO ×3 (00:05→11:43)
[2025-03-07 03:21] VITALS: BP 113/63
[2025-03-07 03:22] VITALS: BMI 27.5
[2025-03-07 06:17] LABS: Hematocrit 33.0 % (37.0-47.0); Hemoglobin 9.7 g/dL (12.0-16.0); Mean Corp Hgb Conc. 29.4 g/dL (33.0-37.0); Mean Corpuscular Volume 76.0 fL (81.0-99.0); Platelet Count 210 10^3/uL (130-400); Red Cell Dist. Width 18.9 % (11.5-14.5)
[2025-03-07 06:31] LABS: Troponin I < 0.012 ng/ml
[2025-03-07 07:04] LABS: ALT (SGPT) 21 U/L (0-35); AST (SGOT) 22 U/L (14-36); Albumin 3.6 g/dl (3.5-5.0); Alkaline Phosphatase 96 U/L (38-126); Blood Urea Nitrogen 54 mg/dl (7-17); Calcium 8.7 mg/dl (8.4-10.2); Carbon Dioxide 31 mmol/L (22-30); Chloride 103 mmol/L (98-107); Estimated Creatinine Clearance 38 ml/min; Glucose 116 mg/dl (70-99); Potassium 4.3 mmol/L (3.5-5.1); Sodium 142 mmol/L (135-145); Total Protein 7.5 g/dl (6.3-8.2); eGFR 42.01
[2025-03-07 07:31] VITALS: BP 100/58
[2025-03-07 07:43] LABS: Glucose - Point of Care 104 mg/dl (70-99)
[2025-03-07] MEDS: NOVOLOG FLEXPEN-LOW RESISTANCE SC ×3 (07:47→16:42)
[2025-03-07 08:55] VITALS: BMI 27.5
[2025-03-07] MEDS: ZOFRAN 4 MG IV ×3 (09:54→23:27)
[2025-03-07] MEDS: NOVOLOG FLEXPEN SC ×3 (10:31→18:38)
[2025-03-07] MEDS: PROTONIX 40 MG PO (10:36)
[2025-03-07] MEDS: PLAQUENIL 200 MG PO ×2 (10:36→20:20)
[2025-03-07] MEDS: TOPROL XL 25 MG PO (10:36)
[2025-03-07] MEDS: CELEXA 20 MG PO (10:37)
[2025-03-07] MEDS: FARXIGA 10 MG PO (10:37)
[2025-03-07] MEDS: HEPARIN 5000 UNITS SC ×3 (10:37→23:26)
[2025-03-07] MEDS: LIPITOR 40 MG PO (10:37)
--- NOTE | 2025-03-07 10:37 | CM ---
Patient seen bedside w/ spouse. Initial assessment completed. Patient is a 64-year-old female with extensive cardiac history including prolonged hospital stay for CHF exacerbation requiring milrinone with recent echo with EF of 20 to 25% now
presenting for chest discomfort.
Patient's Indonesian is limited, spouse assisted. Patient resides w/ spouse in a single story home, 4 steps to enter. Patient is independent w/ the use of a RW. Independent w/ ADLs. Grab bar in the shower. Denies SNF hx, current w/ [facility]. Patient is not
on O2 at home, currently on 3L.
Address, points of contact and insurance verified
PCP: Tawana Barraza
[facility]
Plan: Home, [facility]OH[facility] w/ [facility]
[2025-03-07] MEDS: LASIX 80 MG IV (10:38)
[2025-03-07 11:28] VITALS: BP 129/69
--- NOTE | 2025-03-07 11:43 | WOUNDNOTE ---
L HEEL (LATERAL POSTERIOR)
--- NOTE | 2025-03-07 11:43 | WOUNDNOTE ---
L HEEL (LATERAL POSTERIOR)
[2025-03-07 11:47] LABS: Glucose - Point of Care 58 mg/dl (70-99)
--- NOTE | 2025-03-07 11:52 | W.PN.HOSP.TC ---
Today's Communication/Plan
-
IV lasix, switch to PO tomorrow
CT A/P
PPI
Zofran
wean o2
Assessment / Plan
Assessment / Plan
Physical Exam
General: No Apparent Distress and Comfortable
HEENT: Moist mucous membranes and Atraumatic
Respiratory: Crackles (At bases); No Wheezes
Cardiac: S1/S2 and Regular Rhythm
GI: Soft and Non Tender
Genito-urinary: No Cha
Musculoskeletal: No Clubbing, Edema, Left Lower Extremity (+2 pitting edema bilateral lower extremities) and Edema, Right Lower Extremity (+2 pitting edema bilateral lower extremities) - improved from yesterday
Skin: Other (Left heel dressing)
Neuro: Alert, Oriented, AO x 3 and Nonfocal/grossly intact; No Facial Droop or Tremors
Psych: Calm; No Agitated
64-year-old female with extensive cardiac history including prolonged hospital stay for CHF exacerbation requiring milrinone with recent echo with EF of 20 to 25% now presenting for chest discomfort. Acknowledged noncompliance. Admitted for CHF
exacerbation.
PLAN:
# Acute on severe chronic HFrEF
#B/L LE edema
#Severe TR
#Acute hypoxic respiratory failure
-2/2 to non compliance
-on 3L O2
-wean o2 as tolerated; goal o2>92%
-ECHO -11/2024-HFrEF with EF of 20 to 25%, global hypokinesis with septal akinesis, severe TR with PASP elevated to 63, moderate MR.
-Daily weight. Strict I &O
-Received 80mg IV lasix twice; anticipate switch to PO lasix tomorrow
-Cont BB
-Cont jardiance
#Chest Discomfort
-likely 2/2 to CHF exacerbation
-F/u Trops - negative
-resolved
#LUQ abdominal pain/tenderness
-likely MSK
-Recent EGD with no significant findings to explain this; does have hx of gastroparesis that may be contributing
-CT A/P
-pain control
-PPI, Zofran
# Nausea
-most likely 2/2 to CHF exacerbation; has had similar prior events inthe past and resolved with treatment of HF along with hx of Gastroparesis and/or congestive gastropathy
-LFTS WNLL
-supportive care
- PPI
-EGD 01/23/25 showed focal gastritis
-Zofran iv prn
# Left heel ulcerated non healing wound due to severe PAD and underlying diabetes.
Empiric antibiotic is finished last admission
Tylenol for pain
f/u in office with Dr Harris.
#Normocytic anemia-Anemia of chronic disease - stable, monitor
#Type 2 diabetes mellitus- ISS; Home regimen
#SLE: Cont Hydrochloroquine
#Essential hypertension: monitor with diuresis, SGLT2i; other GDMT not able to be placed due to renal function/lower BPs
#Hyperlipidemia: statin
# h/o V fib arrest s/p ICD: cont amiodarone
#Peripheral diabetic neuropathy: gabapentin
#History of GERD: PPI
#CAD with Recent CABG-Trend Trops: cont Plavix.
#Anxiety/depression: Continue citalopram 20 mg.
DVT prophylaxis-
Continue subcu hep
CODE STATUS-
Full code
Total time spent on today's encounter was 51 minutes which included time spent in counseling the patient/family regarding diagnosis and treatment plan as listed above, goals of care, and symptom management. Case was discussed with nursing staff,
specialists, and care coordinators/case management. All labs and imaging personally reviewed by me. Remainder the time spent in detailed review of previous records, lab data, imaging, and other medical provider documentation.
Anticipated Discharge: > 48 hours
Subjective/Interval History
-
Date of Service: March 07, 2025
patient hesitant to take medications, complains of LUQ pain tender to palpation.
Objective Data
-
Labs:
Laboratory Results
03/07/25
05:52
WBC 6.2
Hgb 9.7 L
Hct 33.0 L
Plt Count 210
Sodium 142
Potassium 4.3
Chloride 103
Carbon Dioxide 31 H
BUN 54 H
Creatinine 1.4 H
Glucose 116 H
Calcium 8.7
Total Bilirubin 0.7
AST 22
ALT 21
Alkaline Phosphatase 96
Vital Signs:
Vital Signs
Temp Pulse Resp BP Pulse Ox
97.5 F 62 14 129/69 96
03/07/25 11:28 03/07/25 11:28 03/07/25 11:28 03/07/25 11:28 03/07/25 07:31
I&O
03/06/25 03/07/25 03/08/25
06:59 06:59 06:59
Output Total 150 / 150
Balance -150 / -150
Review of Systems
-
History Source: Patient
All other systems: Not reviewed unless documented
Physical Exam
-
General: Well Developed, Well Nourished and No Apparent Distress
HEENT: Normocephalic and Atraumatic
Respiratory: Crackles
Cardiac: Regular Rhythm and S1/S2
GI: Soft, Normal Bowel Sounds and Tender (LUQ quadrant)
Musculoskeletal: Edema, Right Lower Extrem and Edema, Left Lower Extrem
Skin: Warm and Dry
Neuro: Awake, Alert, Oriented and AO x 3
Psych: Calm
Data Reviewed
-
Total Time Spent with Patient (in minutes): 55
Diagnostic Radiology: Report Reviewed by me
Labs: Labs Reviewed by me
--- NOTE | 2025-03-07 11:54 | WOUNDNOTE ---
SACRAL//COCCYX/BUTTOCKS
[2025-03-07 12:06] LABS: Magnesium 2.3 mg/dl (1.6-2.3)
[2025-03-07 12:11] LABS: Glucose - Point of Care 68 mg/dl (70-99)
[2025-03-07 12:28] LABS: Glucose - Point of Care 60 mg/dl (70-99)
[2025-03-07] MEDS: DEXTROSE 50% SYRINGE 12.5 GRAMS IV (12:42)
[2025-03-07 13:06] LABS: Glucose - Point of Care 141 mg/dl (70-99)
--- NOTE | 2025-03-07 14:09 | WOUNDNOTE ---
[facility] RN note: Patient admitted around 12pm. Patient admitted with CHF. Patient lives with who does her local wound care. She is current with [facility] as per .
See H&P for complete history.
PMH: CHF, bedbound, DM, PAD, C diff, neuropathy, R great toe amp, cholecystectomy, former smoker, L heel ulcer d/t severe PAD, cardiac cath, LLE arteriogram not amenable to stent 02/16/[address] Cha.
Wound Location and type/assessment: Patient admitted with: L heel softening eschar ulcers d/t severe PAD. L heel shallow small ulcer r/t PAD and non blanchable red area on L heel d/t PAD. R lateral foot dry necrotic eschar r/t PAD. Sacral/coccyx
stage 1 and almost healed dry stage 2 R sacral/buttocks. Perianal skin mild MASD.
Appetite: poor.
Pressure redistribution devices in place: [employer] Accumax. IZAIAH Robb to coordinate switching to an air bed. t/c Bed tech Wade who will bring a [employer] air bed. Patient can turn self slowly in bed.
Plan: Heel dressings changed (swabbed with Betadine). R lateral foot eschar swabbed with Betadine. Heels off bed with pillow and air chair cushion. Bariatric air chair cushion left in room. Suggested to IZAIAH Robb to place bariatric air chair cushion
at foot end of air mattress. Patient declines use of soft heel relief boots (confirmed with who speaks Syriac). Instructed importance of heel elevation and turning patient.
Updated and confirm orders with Dr. Graham and discussed with nurse. Patient to follow up with vascular surgeon (Dr. Harris or Dr. Cha).
Care plan to be updated and will follow as needed.
[2025-03-07 15:16] VITALS: BP 113/66
[2025-03-07 16:35] LABS: Glucose - Point of Care 142 mg/dl (70-99)
[2025-03-07] MEDS: PACERONE 200 MG PO (17:47)
[2025-03-07] MEDS: PLAVIX 75 MG PO (17:48)
[2025-03-07 19:30] VITALS: BP 136/61
[2025-03-07] MEDS: DESENEX/MITRAZOL/ZEASORB 1 APPLIC TOPICAL (20:21)
[2025-03-07 21:20] LABS: Glucose - Point of Care 123 mg/dl (70-99)
[2025-03-07] MEDS: LANTUS 0.07 UNITS SC (21:30)
[2025-03-07 23:17] VITALS: BP 132/58
[2025-03-08 03:27] VITALS: BP 123/70
[2025-03-08 06:00] VITALS: BMI 26.6
[2025-03-08 07:59] VITALS: BP 130/66
[2025-03-08 08:06] LABS: Glucose - Point of Care 93 mg/dl (70-99)
[2025-03-08] MEDS: NOVOLOG FLEXPEN-LOW RESISTANCE SC ×3 (08:11→16:45)
[2025-03-08] MEDS: TOPROL XL 25 MG PO (08:32)
[2025-03-08] MEDS: PLAQUENIL 200 MG PO ×2 (08:32→21:34)
[2025-03-08] MEDS: LIPITOR 40 MG PO (08:32)
[2025-03-08] MEDS: HEPARIN 5000 UNITS SC ×2 (08:33→23:43)
[2025-03-08] MEDS: PROTONIX 40 MG PO (08:33)
[2025-03-08] MEDS: FARXIGA 10 MG PO (08:33)
[2025-03-08] MEDS: LASIX 80 MG PO (08:33)
[2025-03-08] MEDS: CELEXA 20 MG PO (08:33)
[2025-03-08] MEDS: NOVOLOG FLEXPEN SC ×4 (08:37→16:45)
[2025-03-08] MEDS: DESENEX/MITRAZOL/ZEASORB 1 APPLIC TOPICAL ×2 (08:37→21:34)
[2025-03-08] MEDS: ZOFRAN 4 MG IV (10:07)
[2025-03-08 10:46] LABS: Hematocrit 32.8 % (37.0-47.0); Hemoglobin 10.0 g/dL (12.0-16.0); Mean Corp Hgb Conc. 30.5 g/dL (33.0-37.0); Mean Corpuscular Volume 74.9 fL (81.0-99.0); Platelet Count 216 10^3/uL (130-400); Red Cell Dist. Width 19.2 % (11.5-14.5)
[2025-03-08 10:49] LABS: ALT (SGPT) 21 U/L (0-35); AST (SGOT) 24 U/L (14-36); Albumin 3.8 g/dl (3.5-5.0); Alkaline Phosphatase 96 U/L (38-126); Blood Urea Nitrogen 57 mg/dl (7-17); Calcium 8.5 mg/dl (8.4-10.2); Carbon Dioxide 29 mmol/L (22-30); Chloride 102 mmol/L (98-107); Estimated Creatinine Clearance 44 ml/min; Glucose 122 mg/dl (70-99); Potassium 4.5 mmol/L (3.5-5.1); Sodium 140 mmol/L (135-145); Total Protein 7.6 g/dl (6.3-8.2); eGFR 50.55
[2025-03-08 11:31] LABS: Glucose - Point of Care 121 mg/dl (70-99)
[2025-03-08] MEDS: GAVISCON LIQUID 15 ML PO (12:09)
[2025-03-08] MEDS: LIDOCAINE 4% PATCH 1 PATCH TOPICAL (12:15)
[2025-03-08 12:35] VITALS: BP 117/63
--- NOTE | 2025-03-08 12:50 | CON.PUL ---
Consultation
Consultation Request
Date/Time Consultation Requested: 03/08/25
Date/Time Consultation Performed: 03/08/25
Performing Provider: Girma
Reason for Consultation: Abnl CT
Medical History
-
History of Present Illness:
Patient is a 64-year-old female with previous history of CHF EF 20-25%, asthma, hypertension, diabetes presenting to ER with chest discomfort, orthopnea. She is mostly bedbound per history, and has been noncompliant with her home medications
including diuretics. On presentation she had noted lower extremity edema, saturating 88% on room air and placed on low supplemental O2. proBNP is 24,700 which is elevated from 15,200 approximately 3 weeks prior. She has required milrinone for her
heart failure in the past.
History is limited due to language and unwillingness to cooperate in history taking. We used a language terrance but she did not want to provide additional history.
Has a prior known history of asthma but she had denied having previous history. She did smoke in the distant past but does not quantify when and how much. No prior PFTs for review.
On prior chest imaging she has lower lobe effusions with prominent septal thickening, this has been present as far back as Jul 2024.
Past Medical History
Past Medical History: Other (see list below)
Social History
Tobacco: Former Smoker
Alcohol: None
Drug: None
Family History
Family History: Reviewed & Not Pertinent
Allergies / Home Medications
Allergies
Allergy/AdvReac Type Severity Reaction Status Date / Time
aspirin Allergy Anaphylaxis Verified 02/08/25 13:56
/rash
Home Medications
�Medication �Instructions �Recorded �Confirmed �Last Taken �Type
amiodarone 200 mg tablet 200 mg PO QPM Arrhythmia 01/20/25 03/06/25 Unknown History
atorvastatin 40 mg tablet 40 mg PO DAILY High Cholesterol 01/20/25 03/06/25 03/05/25 History
clopidogrel 75 mg tablet 75 mg PO QPM Blood Clot 01/20/25 03/06/25 Unknown History
Prevention/Tx
insulin aspart U-100 100 unit/mL 7 sliding scale dose SC AC Diabetes 02/13/25 03/06/25 Unknown History
subcutaneous solution
hydroxychloroquine 200 mg tablet 200 mg PO BID Lupus 02/20/25 03/06/25 Unknown History
citalopram 20 mg tablet 20 mg PO DAILY Mental 03/02/25 03/06/25 03/05/25 Rx
Health/Anxiety #0 tabs
furosemide 80 mg tablet 80 mg PO DAILY #30 tabs 03/02/25 03/06/25 03/05/25 Rx
insulin glargine 100 unit/mL 15 unit (0.15 mL) SC HS Diabetes 03/02/25 03/06/25 Unknown Rx
subcutaneous solution (Lantus #0 mL
U-100 Insulin)
metoprolol succinate 25 mg 25 mg PO DAILY #30 tabs 03/02/25 03/06/25 03/05/25 Rx
tablet,extended release 24 hr
pantoprazole 40 mg tablet,delayed 40 mg PO DAILY #30 tabs 03/02/25 03/06/25 03/05/25 Rx
release
empagliflozin 10 mg tablet 10 mg PO DAILY 03/06/25 03/06/25 Unknown History
(Jardiance)
gabapentin 400 mg tablet 400 mg PO TIDPRN PRN mild pain 03/06/25 03/06/25 Unknown History
Review of Systems
-
History Source: Patient
All other systems: Negative unless noted
Vitals / Labs / Diagnostic Testing
Vital Signs
Temp Pulse Resp BP Pulse Ox
97.5 F 62 14 117/63 97
03/08/25 12:35 03/08/25 12:35 03/08/25 12:35 03/08/25 12:35 03/08/25 12:35
Lab Data
03/08/25 10:28
03/08/25 10:28
Diagnostic Testing:
Physical Exam
-
HEENT: Normocephalic, Anicteric and Moist Mucous Membranes
Cardiovascular: S1/S2, Regular Rhythm and Peripheral Edema
Respiratory: Rales and Non-Labored Respirations
GI: Soft, Non Distended and Non Tender
Neurology: Awake, Alert, No Motor Deficits and Other (depressed appearing)
Skin: Warm and Dry
General: Comfortable and Other (NAD, weak appearing)
Assessment
-
Patient is a 64-year-old female with previous history of CHF EF 20-25%, asthma, hypertension, diabetes presenting to ER with chest discomfort, orthopnea. She is mostly bedbound per history, and has been noncompliant with her home medications
including diuretics. On presentation she had noted lower extremity edema, saturating 88% on room air and placed on low supplemental O2. proBNP is 24,700 which is elevated from 15,200 approximately 3 weeks prior. Admitted for heart failure
exacerbation, has abnormal CT for which we are consulted 03/08/25.
Acute on chronic heart failure w/ reduced EF exacerbation
Pleural effusion, LE edema
SOB, orthopnea
Medical noncompliance
Abnl CT scan
Pulmonary nodule
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
PAD s/p arteriogram (Dr. Harris) 04/30/2022
Right lower extremity arteriogram with third order vessel catheterization (Dr. Harris) 04/01/2023
Extensive right ilio-femoral endarterectomy (Dr. Harris) 10/12/2024
Ischemic cardiomyopathy -- EF 26%
CAD s/p CABG x3 (Dr. Tapia) 08/31/2024 [facility]
: NSTEMI (08/20-08/26/24) [id number]
Mild to moderate MR
Mild pulmonary artery systolic pressure 32 mmHg August 2024
History of acute osteomyelitis of right ankle or foot
Diabetes mellitus
Hypertension
Lupus
Asthma
Varicose Veins Lower extremity
Drug Induced Osteoporosis
Hypothyroid
Carpal Tunnel Surgery
Cholecystectomy 1999
Pacemaker 2024
Plan
Hypoxemia noted on arrival, now 99% on 3L NC
No O2 use at home, would eventually need home O2 evaluation
Prior history of lung disease is noted -- Has a prior known history of asthma but she had denied having previous history.
She did smoke in the distant past but does not quantify when and how much. No prior PFTs for review.
Admitted for CHF, baseline EF 20%
She has required milrinone for her heart failure in the past.
On prior chest imaging she has lower lobe effusions with prominent septal thickening, this has been present as far back as Jul 2024.
Suspect patient has acute on chronic HF with chronic pleural changes
A pulmonary nodule is noted as well but given her degree of HF, a biopsy may not be feasible given risk for procedures
Other imaging reviewed--she has had significant pleural changes as far back as Jul 2024, last CT AP 05/2024 showing more normal appearance
She denied SOB, would just follow her imaging when indicated and treat underlying HF
It is also not amenable for thora based on size and chronicity
Prior ECHO results are reviewed indicating end stage CM
She has known noncompliance
Abd pain noted, CT AP showing mostly anasarca
Cardiac consult recommended for management of CHF
At risk for hypoventilation given her met alk, can check baseline VBG
She is unlikely to comply with PAP
Consideration for palliative discussions given her cardiac disease
We will follow
Diagnostic Data
Chest X-Ray: 03/06/25- 1. Findings suggestive of pulmonary edema. 2. Small bilateral pleural effusions.
02/21/25- Small right pleural effusion. Progressed. Tiny left pleural effusion. New. Mild right lower lobe atelectasis versus scarring. Progressed. Cardiomegaly. Progressed.
CT Scan: AP 03/07/25- Lower Chest: Four-chamber cardiomegaly. Left chest wall pacemaker/defibrillator with lead terminating in the right ventricle. There are small bilateral pleural effusions with bibasilar atelectasis. There is interlobular septal
thickening. There is a 1.6 cm oblong nodular opacity within the posterior right lower lobe.
Colonic diverticulosis. Small volume pelvic free fluid. There are stable mildly prominent retroperitoneal lymph nodes with a 1.4 cm left para-aortic lymph node conglomerate. These appear stable to prior examination which would favor a benign
etiology. Diffuse anasarca. Cholecystectomy.
Echo: 12/19/24- Mildly dilated left ventricle. Normal left ventricular wall thickness. Severely reduced left ventricular systolic function; left ventricular ejection fraction is 20-25%. Global hypokinesis with possible septal akinesis. Stage
III diastolic dysfunction suggestive of restrictive filling pattern and increased filling pressures. Mildly thickened mitral valve leaflets with mild mitral annular calcification and moderate mitral regurgitation. Normal left atrial size. Mildly
sclerotic, trileaflet aortic valve with aortic annular calcification, normal leaflet excursion and trace aortic regurgitation.Tricuspid valve opens normally with severe tricuspid regurgitation. Estimated pulmonary artery pressure of 63 mmHg,
assuming a right atrial pressure of 3 mmHg.Since echocardiogram July 2024, TR is increased from trace to severe and PA systolic pressure is increased from 25-30 mmHg to 63 mmHg.
[facility] 02/21/25- Hemodynamics (mmHg): RA (m) : 34; RV (s/d,m) : 64/18, 31; PA (s/d, m) : 68/29, 44; PCWP (m) : 43
Noninvasive BP: 141/70, 96
Cardiac Output : 1.94 L/min and Cardiac Index : 1.11 L/min/m-2
Systemic vascular resistance: 31 Wood units or 2480 [id number](-5)
Pulmonary vascular resistance: Not accurate PCWP
CONCLUSION: 1. Severely reduced cardiac output and index 2. Elevated right and left ventricular filling pressures.
PFT's:
Reports and relevant images were personally reviewed.
Total time spent on this consultation __75__ minutes which includes review of history, physical exam, medications, laboratory data, personal review of imaging, extensive review of outpatient records, discussion with care team and respiratory therapy.
--- NOTE | 2025-03-08 12:58 | W.PN.HOSP.TC ---
Today's Communication/Plan
-
diuretics
Pulm consulted
Mylanta
Lidocaine patch
Assessment / Plan
Assessment / Plan
Physical Exam
General: No Apparent Distress and Comfortable
HEENT: Moist mucous membranes and Atraumatic
Respiratory: Crackles (At bases); No Wheezes
Cardiac: S1/S2 and Regular Rhythm
GI: Soft and Non Tender
Genito-urinary: No Cha
Musculoskeletal: No Clubbing, Edema, Left Lower Extremity (+2 pitting edema bilateral lower extremities) and Edema, Right Lower Extremity (+2 pitting edema bilateral lower extremities) - improved from yesterday
Skin: Other (Left heel dressing)
Neuro: Alert, Oriented, AO x 3 and Nonfocal/grossly intact; No Facial Droop or Tremors
Psych: Calm; No Agitated
64-year-old female with extensive cardiac history including prolonged hospital stay for CHF exacerbation requiring milrinone with recent echo with EF of 20 to 25% now presenting for chest discomfort. Acknowledged noncompliance. Admitted for CHF
exacerbation.
PLAN:
# Acute on severe chronic HFrEF
#B/L LE edema
#Severe TR
#Acute hypoxic respiratory failure
-2/2 to non compliance
-on 3L O2
-wean o2 as tolerated; goal o2>92%
-ECHO -11/2024-HFrEF with EF of 20 to 25%, global hypokinesis with septal akinesis, severe TR with PASP elevated to 63, moderate MR.
-Daily weight. Strict I &O
-Received 80mg IV lasix twice;switched back to PO lasix
-Cont BB
-Cont jardiance
#Chest Discomfort
-likely 2/2 to CHF exacerbation
-F/u Trops - negative
-resolved
#LUQ abdominal pain/tenderness
-likely MSK + Anxiety
-ripped off lidocaine patch
-Recent EGD with no significant findings to explain this; does have hx of gastroparesis that may be contributing
-CT A/P - with no abdominal findings
-pain control
-PPI, Zofran
# loculated pleural effusions and adjacent atelectasis.
-There is a 1.6 cm oblong density within the right lower lobe which may represent loculated fluid
-diuretics as above
-pulm consulted
-anticipate monitoring
# Nausea
-most likely 2/2 to CHF exacerbation; has had similar prior events inthe past and resolved with treatment of HF along with hx of Gastroparesis and/or congestive gastropathy
-LFTS WNLL
-supportive care
- PPI
-Add mylanta
-EGD 01/23/25 showed focal gastritis
-Zofran iv prn
# Left heel ulcerated non healing wound due to severe PAD and underlying diabetes.
Empiric antibiotic is finished last admission
Tylenol for pain
f/u in office with Dr Harris.
#Normocytic anemia-Anemia of chronic disease - stable, monitor
#Type 2 diabetes mellitus- ISS; Home regimen
#SLE: Cont Hydrochloroquine
#Essential hypertension: monitor with diuresis, SGLT2i; other GDMT not able to be placed due to renal function/lower BPs
#Hyperlipidemia: statin
# h/o V fib arrest s/p ICD: cont amiodarone
#Peripheral diabetic neuropathy: gabapentin
#History of GERD: PPI
#CAD with Recent CABG-Trend Trops: cont Plavix.
#Anxiety/depression: Continue citalopram 20 mg.
DVT prophylaxis-
Continue subcu hep
CODE STATUS-
Full code
Total time spent on today's encounter was 53 minutes which included time spent in counseling the patient/family regarding diagnosis and treatment plan as listed above, goals of care, and symptom management. Case was discussed with nursing staff,
specialists, and care coordinators/case management. All labs and imaging personally reviewed by me. Remainder the time spent in detailed review of previous records, lab data, imaging, and other medical provider documentation.
Anticipated Discharge: 24 - 48 hours
Subjective/Interval History
-
Date of Service: March 08, 2025
luq still present
Objective Data
-
Labs:
Laboratory Results
03/08/25
10:28
WBC 6.0
Hgb 10.0 L
Hct 32.8 L
Plt Count 216
Sodium 140
Potassium 4.5
Chloride 102
Carbon Dioxide 29
BUN 57 H
Creatinine 1.2 H
Glucose 122 H
Calcium 8.5
Total Bilirubin 0.9
AST 24
ALT 21
Alkaline Phosphatase 96
Vital Signs:
Vital Signs
Temp Pulse Resp BP Pulse Ox
97.5 F 62 14 117/63 97
03/08/25 12:35 03/08/25 12:35 03/08/25 12:35 03/08/25 12:35 03/08/25 12:35
I&O
03/07/25 03/08/25 03/09/25
06:59 06:59 06:59
Intake Total 480 / 480
Output Total 150 / 150
Balance -150 / -150 480 / 480
Review of Systems
-
History Source: Patient
All other systems: Not reviewed unless documented
Physical Exam
-
General: Well Developed, Well Nourished and No Apparent Distress
HEENT: Normocephalic and Atraumatic
Respiratory: Crackles
Cardiac: Regular Rhythm and S1/S2
GI: Soft, Normal Bowel Sounds and Tender (LUQ quadrant)
Musculoskeletal: Edema, Right Lower Extrem and Edema, Left Lower Extrem
Skin: Warm and Dry
Neuro: Awake, Alert, Oriented and AO x 3
Psych: Calm
Data Reviewed
-
Total Time Spent with Patient (in minutes): 55
Diagnostic Radiology: Report Reviewed by me
Labs: Labs Reviewed by me
[2025-03-08] MEDS: TYLENOL 650 MG PO (14:25)
[2025-03-08 15:19] VITALS: BP 122/57
[2025-03-08 16:42] LABS: Glucose - Point of Care 82 mg/dl (70-99)
[2025-03-08] MEDS: PACERONE 200 MG PO (17:54)
[2025-03-08] MEDS: PLAVIX 75 MG PO (17:54)
[2025-03-08] MEDS: HEPARIN SC (17:55)
[2025-03-08 19:23] VITALS: BP 128/70
[2025-03-08 20:33] LABS: Glucose - Point of Care 111 mg/dl (70-99)
[2025-03-08] MEDS: REMOVE LIDOCAINE PATCH 1 PATCH REMOVE (21:33)
[2025-03-08] MEDS: LANTUS 0.07 UNITS SC (21:36)
[2025-03-08 23:27] VITALS: BP 119/64
[2025-03-09 03:42] VITALS: BP 136/70
[2025-03-09] MEDS: TYLENOL 650 MG PO (03:46)
[2025-03-09 06:45] VITALS: BP 123/58
[2025-03-09 07:12] LABS: Venous Blood Gas B.E. 4.4 mmol/L (-4 to +4); Venous Blood Gas O2 Sat % 98.9 %
[2025-03-09 07:38] LABS: Glucose - Point of Care 76 mg/dl (70-99)
[2025-03-09] MEDS: NOVOLOG FLEXPEN-LOW RESISTANCE SC ×2 (07:39→11:41)
[2025-03-09] MEDS: NOVOLOG FLEXPEN SC ×2 (07:40→11:41)
[2025-03-09 07:58] LABS: Hematocrit 33.4 % (37.0-47.0); Hemoglobin 10.1 g/dL (12.0-16.0); Mean Corp Hgb Conc. 30.2 g/dL (33.0-37.0); Mean Corpuscular Volume 75.1 fL (81.0-99.0); Platelet Count 207 10^3/uL (130-400); Red Cell Dist. Width 18.9 % (11.5-14.5)
[2025-03-09 08:17] LABS: ALT (SGPT) 18 U/L (0-35); AST (SGOT) 21 U/L (14-36); Albumin 3.6 g/dl (3.5-5.0); Alkaline Phosphatase 91 U/L (38-126); Blood Urea Nitrogen 56 mg/dl (7-17); Calcium 8.8 mg/dl (8.4-10.2); Carbon Dioxide 28 mmol/L (22-30); Chloride 104 mmol/L (98-107); Estimated Creatinine Clearance 48 ml/min; Glucose 83 mg/dl (70-99); Potassium 4.0 mmol/L (3.5-5.1); Sodium 140 mmol/L (135-145); Total Protein 7.5 g/dl (6.3-8.2); eGFR 56.11
[2025-03-09] MEDS: PROTONIX 40 MG PO (08:50)
[2025-03-09] MEDS: LASIX 80 MG PO (08:50)
[2025-03-09] MEDS: TOPROL XL 25 MG PO (08:50)
[2025-03-09] MEDS: FARXIGA 10 MG PO (08:50)
[2025-03-09] MEDS: LIPITOR 40 MG PO (08:51)
[2025-03-09] MEDS: HEPARIN 5000 UNITS SC (08:51)
[2025-03-09] MEDS: LIDOCAINE 4% PATCH TOPICAL ×2 (08:53→09:47)
[2025-03-09] MEDS: CELEXA 20 MG PO (08:54)
[2025-03-09] MEDS: DESENEX/MITRAZOL/ZEASORB 1 APPLIC TOPICAL (08:54)
[2025-03-09] MEDS: PLAQUENIL 200 MG PO (08:54)
[2025-03-09] MEDS: ZOFRAN 4 MG IV (08:59)
--- NOTE | 2025-03-09 09:20 | W.PN.PUL3 ---
Today's Communication / Plan
-
Stable on RA, satting 100%, denies and SOB/wheezing
Still having abdominal pain, but CT AP negative
Diuresis per team, encouraged her void as much as possible
Nothing further in terms of chronic changes on CT
Would recommend OP FU for asthma, CT chest, nodule FU--will place contact in chart
Otherwise, d/c planning per team
We will sign off at this time, please call with questions
Assessment
-
Patient is a 64-year-old female with previous history of CHF EF 20-25%, asthma, hypertension, diabetes presenting to ER with chest discomfort, orthopnea. She is mostly bedbound per history, and has been noncompliant with her home medications
including diuretics. On presentation she had noted lower extremity edema, saturating 88% on room air and placed on low supplemental O2. proBNP is 24,700 which is elevated from 15,200 approximately 3 weeks prior. Admitted for heart failure
exacerbation, has abnormal CT for which we are consulted 03/08/25.
Acute on chronic heart failure w/ reduced EF exacerbation
Pleural effusion, LE edema
SOB, orthopnea
Medical noncompliance
Abnl CT scan
Pulmonary nodule
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
PAD s/p arteriogram (Dr. Harris) 04/30/2022
Right lower extremity arteriogram with third order vessel catheterization (Dr. Harris) 04/01/2023
Extensive right ilio-femoral endarterectomy (Dr. Harris) 10/12/2024
Ischemic cardiomyopathy -- EF 26%
CAD s/p CABG x3 (Dr. Tapia) 08/31/2024 @[facility]
: NSTEMI (08/20-08/26/24) [id number]
Mild to moderate MR
Mild pulmonary artery systolic pressure 32 mmHg August 2024
History of acute osteomyelitis of right ankle or foot
Diabetes mellitus
Hypertension
Lupus
Asthma
Varicose Veins Lower extremity
Drug Induced Osteoporosis
Hypothyroid
Carpal Tunnel Surgery
Cholecystectomy 1999
Pacemaker 2024
Plan
Hypoxemia noted on arrival, now 99% on 3L NC--weaned to RA, satting 100%
No O2 use at home
Prior history of lung disease is noted -- Has a prior known history of asthma but she had denied having previous history.
She did smoke in the distant past but does not quantify when and how much. No prior PFTs for review.
Denies SOB, can follow up as OP if symptoms develop
Admitted for CHF, baseline EF 20%
She has required milrinone for her heart failure in the past.
On prior chest imaging she has lower lobe effusions with prominent septal thickening, this has been present as far back as Jul 2024.
Suspect patient has acute on chronic HF with chronic pleural changes
A pulmonary nodule is noted as well but given her degree of HF, a biopsy may not be feasible given risk for procedures
Other imaging reviewed--she has had significant pleural changes as far back as Jul 2024, last CT AP 05/2024 showing more normal appearance
She denied SOB, would just follow her imaging when indicated and treat underlying HF
It is also not amenable for thora based on size and chronicity
Prior ECHO results are reviewed indicating end stage CM
She has known noncompliance
Abd pain noted, CT AP showing mostly anasarca
Cardiac consult recommended for management of CHF
At risk for hypoventilation given her met alk, can check baseline VBG
She is unlikely to comply with PAP
Consideration for palliative discussions given her cardiac disease
I reviewed plan of care with family at bedside, OP FU can be obtained if needed
Discharge planning otherwise per team
Diagnostic Data
Chest X-Ray: 03/06/25- 1. Findings suggestive of pulmonary edema. 2. Small bilateral pleural effusions.
02/21/25- Small right pleural effusion. Progressed. Tiny left pleural effusion. New. Mild right lower lobe atelectasis versus scarring. Progressed. Cardiomegaly. Progressed.
CT Scan: AP 03/07/25- Lower Chest: Four-chamber cardiomegaly. Left chest wall pacemaker/defibrillator with lead terminating in the right ventricle. There are small bilateral pleural effusions with bibasilar atelectasis. There is interlobular septal
thickening. There is a 1.6 cm oblong nodular opacity within the posterior right lower lobe.
Colonic diverticulosis. Small volume pelvic free fluid. There are stable mildly prominent retroperitoneal lymph nodes with a 1.4 cm left para-aortic lymph node conglomerate. These appear stable to prior examination which would favor a benign
etiology. Diffuse anasarca. Cholecystectomy.
Echo: 12/19/24- Mildly dilated left ventricle. Normal left ventricular wall thickness. Severely reduced left ventricular systolic function; left ventricular ejection fraction is 20-25%. Global hypokinesis with possible septal akinesis. Stage
III diastolic dysfunction suggestive of restrictive filling pattern and increased filling pressures. Mildly thickened mitral valve leaflets with mild mitral annular calcification and moderate mitral regurgitation. Normal left atrial size. Mildly
sclerotic, trileaflet aortic valve with aortic annular calcification, normal leaflet excursion and trace aortic regurgitation.Tricuspid valve opens normally with severe tricuspid regurgitation. Estimated pulmonary artery pressure of 63 mmHg,
assuming a right atrial pressure of 3 mmHg.Since echocardiogram July 2024, TR is increased from trace to severe and PA systolic pressure is increased from 25-30 mmHg to 63 mmHg.
[facility] 02/21/25- Hemodynamics (mmHg): RA (m) : 34; RV (s/d,m) : 64/18, 31; PA (s/d, m) : 68/29, 44; PCWP (m) : 43
Noninvasive BP: 141/70, 96
Cardiac Output : 1.94 L/min and Cardiac Index : 1.11 L/min/m-2
Systemic vascular resistance: 31 Wood units or 2480 [id number](-5)
Pulmonary vascular resistance: Not accurate PCWP
CONCLUSION: 1. Severely reduced cardiac output and index 2. Elevated right and left ventricular filling pressures.
PFT's:
Reports and relevant images were personally reviewed.
Total time spent on this consultation __51__ minutes which includes review of history, physical exam, medications, laboratory data, personal review of imaging, extensive review of outpatient records, discussion with care team and respiratory therapy.
Subjective Data
-
Date of Service:
Date of Service: March 09, 2025
Chief Complaint: Pulmonary Follow Up
Subjective:
Remains stable, no new complaints
Still having RUQ pain
Objective Data
Data Reviewed
Vital Signs / I&O / Oxygen:
Vital Signs
Temp Pulse Resp BP Pulse Ox
97 F 61 14 123/58 96
03/09/25 06:45 03/09/25 06:45 03/09/25 06:45 03/09/25 06:45 03/09/25 06:45
Intake and Output
03/08/25 03/09/25 03/10/25
06:59 06:59 06:59
Intake Total 480 / 480 240 / 240
Balance 480 / 480 240 / 240
SaO2 96
Nasal Cannula flow liters per 3
minute
Physical Exam
General: Comfortable and Other (NAD)
HEENT: Normocephalic, Anicteric and Other (edentulous)
Cardiovascular: S1-S2 and Regular Rhythm
Respiratory: Crackles and Non-Labored Respirations
GI: Soft, Non Distended and Non Tender
Neurology: Awake, Alert, Oriented and No Motor Deficits
Skin: Warm, Dry and Good Color
Labs/Micro/Reports
Lab Data
03/09/25 07:02
03/09/25 07:02
[2025-03-09 11:15] VITALS: BP 119/66
[2025-03-09 11:40] LABS: Glucose - Point of Care 74 mg/dl (70-99)
[2025-03-09] MEDS: ROXICODONE 5 MG PO (12:04)
--- NOTE | 2025-03-09 12:40 | W.PN.HOSP.TC ---
Addendum entered and electronically signed by Cyrus Graham MD 03/10/25 15:33:
[id number]
Original Note:
Today's Communication/Plan
-
standing gabapentin
can trial reglan x 1 week if continued nausea although has had no vomiting x 2 days
-short course of oxy if needed - can f/u with pain management outpt
-benefits from psychiatry outpatient
resume lasix dose, continue
educated fam on compliance
-F/u PCP, Pulm, Cards, Psych, Vascular, GI, Pain Outpatient
Assessment / Plan
Assessment / Plan
Physical Exam
General: No Apparent Distress and Comfortable
HEENT: Moist mucous membranes and Atraumatic
Respiratory: Crackles (At bases); No Wheezes
Cardiac: S1/S2 and Regular Rhythm
GI: Soft and Non Tender
Genito-urinary: No Cha
Musculoskeletal: No Clubbing, Edema, Left Lower Extremity (+2 pitting edema bilateral lower extremities) and Edema, Right Lower Extremity (+2 pitting edema bilateral lower extremities) - improved from yesterday
Skin: Other (Left heel dressing)
Neuro: Alert, Oriented, AO x 3 and Nonfocal/grossly intact; No Facial Droop or Tremors
Psych: Calm; No Agitated
64-year-old female with extensive cardiac history including prolonged hospital stay for CHF exacerbation requiring milrinone with recent echo with EF of 20 to 25% now presenting for chest discomfort. Acknowledged noncompliance. Admitted for CHF
exacerbation.
PLAN:
# Acute on severe chronic HFrEF
#B/L LE edema
#Severe TR
#Acute hypoxic respiratory failure, resolved
-2/2 to non compliance
-wean o2 as tolerated; goal o2>92%
-ECHO -11/2024-HFrEF with EF of 20 to 25%, global hypokinesis with septal akinesis, severe TR with PASP elevated to 63, moderate MR.
-Daily weight. Strict I &O
-Received 80mg IV lasix twice;switched back to PO lasix
-Cont BB
-Cont jardiance
-F/u Cards outpatient
#Chest Discomfort
-likely 2/2 to CHF exacerbation
-F/u Trops - negative
-resolved
#Left lower Chest tenderness
-likely MSK + Anxiety
-ripped off lidocaine patch
-Recent EGD with no significant findings to explain this; does have hx of gastroparesis that may be contributing
-CT A/P - with no abdominal findings
-pain control
-PPI, Zofran
-May be psychosomatic +/- issues after chest compressions from VFib arrest this year
-Change Gabapentin to standing
-Can provide short course of oxy - may benefit from pain management outpatient
# loculated pleural effusions and adjacent atelectasis.
-There is a 1.6 cm oblong density within the right lower lobe which may represent loculated fluid
-diuretics as above
-pulm consulted - NTD
-anticipate monitoring
# Nausea
-most likely 2/2 to CHF exacerbation; has had similar prior events inthe past and resolved with treatment of HF along with hx of Gastroparesis and/or congestive gastropathy
-LFTS WNL
-supportive care
- PPI
-Add mylanta
-EGD 01/23/25 showed focal gastritis
-Zofran iv prn
# Left heel ulcerated non healing wound due to severe PAD and underlying diabetes.
Empiric antibiotic is finished last admission
Tylenol for pain
f/u in office with Dr Harris.
#Normocytic anemia-Anemia of chronic disease - stable, monitor
#Type 2 diabetes mellitus- ISS; Home regimen
#SLE: Cont Hydrochloroquine
#Essential hypertension: monitor with diuresis, SGLT2i; other GDMT not able to be placed due to renal function/lower BPs
#Hyperlipidemia: statin
# h/o V fib arrest s/p ICD: cont amiodarone
#Peripheral diabetic neuropathy: gabapentin, switch to standing
#History of GERD: PPI
#CAD with Recent CABG-Trend Trops: cont Plavix.
#Anxiety/depression: Continue citalopram 20 mg.
DVT prophylaxis-
Continue subcu hep
CODE STATUS-
Full code
More than 30 minutes spent in discharge including
Final examination of the patient
Summarizing hospital stay
Instructions for continuing care to all relevant caregivers
Preparation of discharge records, prescriptions, and referral forms
Total time spent (in minutes): 36
Anticipated Discharge: Today
Subjective/Interval History
-
Date of Service: March 09, 2025
no vomiting, renal function stable. pain is still present, tender to left lower chest (ribs)
Objective Data
-
Labs:
Laboratory Results
03/09/25
07:02
WBC 6.1
Hgb 10.1 L
Hct 33.4 L
Plt Count 207
Sodium 140
Potassium 4.0
Chloride 104
Carbon Dioxide 28
BUN 56 H
Creatinine 1.1 H
Glucose 83
Calcium 8.8
Total Bilirubin 0.8
AST 21
ALT 18
Alkaline Phosphatase 91
Vital Signs:
Vital Signs
Temp Pulse Resp BP Pulse Ox
97.3 F 62 14 119/66 100
03/09/25 11:15 03/09/25 11:15 03/09/25 11:15 03/09/25 11:15 03/09/25 11:15
I&O
03/08/25 03/09/25 03/10/25
06:59 06:59 06:59
Intake Total 480 / 480 240 / 240
Balance 480 / 480 240 / 240
Review of Systems
-
History Source: Patient
All other systems: Not reviewed unless documented
Data Reviewed
-
Total Time Spent with Patient (in minutes): 55
Diagnostic Radiology: Report Reviewed by me
Labs: Labs Reviewed by me
--- NOTE | 2025-03-09 12:47 | W.DS.TRANS ---
DC Summary - Online Editor
-
Discharge Instructions:
Discharge Diagnosis/Procedures CHF exacerbation
Left upper rib pain/tenderness- musculoskeletal
Diet Low Fat,Regular,2 Gram Sodium
Activity As tolerated
Blood Work cbc and cmp in 5-7 days with pcp
Others Tests As per PCP outpatient
Instructions:
Stand-Alone Forms:
Changes to Home Medications: Yes
Discharge Medications:
DC Medications w/original date entered in [facility]
amiodarone 200 mg tablet 200 mg PO QPM Arrhythmia 01/20/25
atorvastatin 40 mg tablet 40 mg PO DAILY High Cholesterol 01/20/25
clopidogrel 75 mg tablet 75 mg PO QPM Blood Clot Prevention/Tx 01/20/25
insulin aspart U-100 100 unit/mL subcutaneous solution 7 sliding scale dose SC AC Diabetes 02/13/25
hydroxychloroquine 200 mg tablet 200 mg PO BID Lupus 02/20/25
citalopram 20 mg tablet 20 mg PO DAILY Mental Health/Anxiety #0 tabs 03/02/25
furosemide 80 mg tablet 80 mg PO DAILY #30 tabs 03/02/25
metoprolol succinate 25 mg tablet,extended release 24 hr 25 mg PO DAILY #30 tabs 03/02/25
pantoprazole 40 mg tablet,delayed release 40 mg PO DAILY #30 tabs 03/02/25
empagliflozin 10 mg tablet (Jardiance) 10 mg PO DAILY 03/06/25
gabapentin 400 mg capsule 400 mg PO TID 30 days #90 caps 03/09/25
insulin glargine 100 unit/mL subcutaneous solution (Lantus U-100 Insulin) 7 unit (0.07 mL) SC HS Diabetes #0 mL 03/09/25
lidocaine 4 % topical patch 1 patch topical DAILY #30 ea 03/09/25
miconazole nitrate 2 % topical powder (Miconazorb AF) 1 applic topical BID #85 grams 03/09/25
oxycodone 5 mg tablet 5 mg PO Q8H PRN severe pain #9 tabs 03/09/25
Home Medication Changes
gabapentin 400 mg capsule 400 mg PO TID 30 days #90 caps 03/09/25
insulin glargine 100 unit/mL subcutaneous solution (Lantus U-100 Insulin) 7 unit (0.07 mL) SC HS Diabetes #0 mL 03/09/25
lidocaine 4 % topical patch 1 patch topical DAILY #30 ea 03/09/25
miconazole nitrate 2 % topical powder (Miconazorb AF) 1 applic topical BID #85 grams 03/09/25
oxycodone 5 mg tablet 5 mg PO Q8H PRN severe pain #9 tabs 03/09/25
Pending Results: No
[2025-03-09] MEDS: GAVISCON LIQUID 15 ML PO (13:38)
--- NOTE | 2025-03-09 15:02 | CM ---
MD entered order for discharge.
Spoke with son who will drive her home.
Son requested pt to have pain meds at md. MD notified.
Kyara From [facility] aware of dc.
[facility]AN [facility]
== END 2025-03-09 15:08 | disposition home health service (06) | DRG 291 ==
LOC: 3 WEST ACU 12:26
PROVIDERS: ADMITTING PHYSICIAN Internal Medicine; CONSULT PHYSICIAN Internal Medicine; EMERGENCY PHYSICIAN Student in an Organized Health Care Education/Training Program; FAMILY PHYSICIAN Internal Medicine
DX: I11.0 Hypertensive heart disease with heart failure (principal); I50.23 Acute on chronic systolic (congestive) heart failure; J96.01 Acute respiratory failure with hypoxia; J98.11 Atelectasis; R07.81 Pleurodynia; I08.1 Rheumatic disorders of both mitral and tricuspid valves; E11.51 Type 2 diabetes mellitus with diabetic peripheral angiopathy without gangrene; E11.42 Type 2 diabetes mellitus with diabetic polyneuropathy; D63.8 Anemia in other chronic diseases classified elsewhere; M32.9 Systemic lupus erythematosus, unspecified; E78.00 Pure hypercholesterolemia, unspecified; F32.A Depression, unspecified; F41.9 Anxiety disorder, unspecified; I25.5 Ischemic cardiomyopathy; R91.1 Solitary pulmonary nodule; J45.909 Unspecified asthma, uncomplicated; I83.90 Asymptomatic varicose veins of unspecified lower extremity; M81.8 Other osteoporosis without current pathological fracture; E03.9 Hypothyroidism, unspecified; K29.70 Gastritis, unspecified, without bleeding; I25.10 Atherosclerotic heart disease of native coronary artery without angina pectoris; I25.2 Old myocardial infarction; Z79.899 Other long term (current) drug therapy; Z79.4 Long term (current) use of insulin; Z79.84 Long term (current) use of oral hypoglycemic drugs; Z86.74 Personal history of sudden cardiac arrest; Z87.891 Personal history of nicotine dependence; Z90.49 Acquired absence of other specified parts of digestive tract; Z91.148 Patient's other noncompliance with medication regimen for other reason; Z95.1 Presence of aortocoronary bypass graft; Z95.810 Presence of automatic (implantable) cardiac defibrillator
CPT/HCPCS: 71045; 74176; 80053; 82805; 82962; 83735; 83880; 84484; 85025; 85027; 93005; 96374; 96375; 99291

== ENCOUNTER 2025-04-17 16:10 | Inpatient (IN) | payer OTHER, SELFPAY ==
[2025-04-17] VITALS (39 sets, daily range): BP systolic 30–142; BP diastolic 18–82; BMI 28.2
--- NOTE | 2025-04-17 13:14 | EDRN ---
Dr. Chaudhari in room w/pt at this time.
[2025-04-17 13:16] LABS: Glucose - Point of Care 32 mg/dl (70-99)
--- NOTE | 2025-04-17 13:18 | EDRN ---
Pt administered OJ. Unable to get IV access.
[2025-04-17] MEDS: DEXTROSE 50% SYRINGE 25 GRAMS IV ×3 (13:23→15:40)
--- NOTE | 2025-04-17 13:30 | ED.GENMED ---
History of Present Illness
<David Chaudhari MD - Last Filed: 04/17/25 20:43>
General
Chief Complaint: Blood Sugar Problem
Source: patient, family and ambulance crew
Exam Limitations: clinical condition
Time Seen by Provider: 04/17/25 13:28
Nursing documentation reviewed up to this point in time: agreed with
History of Present Illness
History of Present Illness:
64-year-old female with history of insulin-dependent diabetes, congestive heart failure who presents to the emergency department via EMS from home where she apparently lives with her family; she presents for evaluation of weakness and lethargy
reportedly over the past few days. Discovered to have significant hypoglycemia by EMS today. She was given oral glucose and IM glucagon for a glucose of 42 in the field. Patient is somewhat limited as a historian as she is very lethargic due to
hypoglycemia. Patient says that she feels very weak. She seems to deny any chest pain or shortness of breath. She denies any abdominal pain. She says she has not been vomiting or had diarrhea. She has not noticed any urinary symptoms. Family
is reportedly en route to the hospital but not yet at bedside, no further history available at this point in time. Patient does state that she takes insulin and used it this morning but she is not sure how much or at what time
UPDATE
I spoke with the patient's family after cardiac arrest. It sounds like since hospitalization in February she has had progressive failure to thrive. says that she has not been eating or drinking essentially at all. She has been very weak and
lethargic. This morning barely arousable which prompted EMS call. I asked about patient's insulin given her hyperglycemia�it sounds like she did not take insulin this morning but took it last night per .
Chart review shows multiple recent admissions with CHF. She had right heart cath 02/[address] Culp which showed severely reduced cardiac output and elevated right and left ventricular filling pressures, has been followed by [facility].
She has had issues with leg wounds, vascular disease and multiple other admissions/ER visits over the past year.
Review of Systems
<David Chaudhari MD - Last Filed: 04/17/25 20:43>
Review of Systems
Unable to obtain full review of systems at this time due to: due to acuity
All Other Systems: Not applicable
Phy Exam
<David Chaudhari MD - Last Filed: 04/17/25 20:43>
Physical Exam
Physical Exam:
General: Awake, alert, oriented x3; no acute distress
Head: Normocephalic, atraumatic
Eyes: Conjunctiva normal, pupils equal round reactive to light bilaterally
Throat: Airway intact, handling secretions
Neck: Trachea midline, no JVD noted
Lungs: Patient has mild tachypnea, no hypoxia; she has rales at the lung bases bilaterally
Heart: Regular rate and rhythm, no murmurs, gallops, or rubs appreciated
Abd: Soft, non distended, no apparent tenderness
Neuro: Very lethargic but arousable, moving all extremities without apparent focal deficit
Extremities: Patient has edema in the legs bilaterally; she has multiple toe lacerations on her feet as well as wounds on the foot/ankle bilaterally; there is erythema of the lower legs bilaterally
Scores
<David Chaudhari MD - Last Filed: 04/17/25 20:43>
Heart Failure Risk
Heart Failure Risk Score: Not Applicable
Heart Score for Chest Pain Patients
STEMI patient?: Not applicable
Withdrawal Assessment of Alcohol
Withdrawal Assessment Completed?: Not applicable
Course
<David Chaudhari MD - Last Filed: 04/17/25 20:43>
Orders/Labs/Results
Orders:
Orders
04/17/25
Electrocardiogram (*1) Stat
Comment: DONE
04/17/25 13:22
Dextrose 50%-Water [Dextrose 50% Syringe] 25 grams .ROUTE .[facility]
Dextrose 50%-Water [Dextrose 50% Syringe] 25 grams IV NOW STA
04/17/25 13:27
Electrocardiogram (*1) Urgent
Reason for Study: Chest Pain
IV Insert/Care/Rem.- Treatment PRN
Cr Chest Portable [CR Chest Portable - 1 View] Urgent
Comment:
Reason For Exam: weakness, CHF
Reason Study Needs to be Portable: Unable to Transport
04/17/25 13:29
0.9% Sodium Chloride 1000 ml [Nss] 1,000 ml IV BOLUS
04/17/25 13:31
Complete Blood Count/With Diff Urgent
Comprehensive Metabolic Panel Urgent
NT-proBNP Urgent
04/17/25 13:32
Cortisol, Random Urgent
Lactate Level [Lactic Acid] Urgent
TSH Reflex To Free T4 Urgent
Blood Culture Q30M
YOVANI Source: Blood/Venous
Specimen Description:
04/17/25 13:39
Dextrose 50%-Water [Dextrose 50% Syringe] 50 grams .ROUTE .[facility] ONE
04/17/25 13:42
Dextrose 50%-Water [Dextrose 50% Syringe] 25 grams IV NOW STA
04/17/25 13:44
0.9% Sodium Chloride 500 ml [Nss] 500 ml IV BOLUS
04/17/25 13:45
0.9% Sodium Chloride 500 ml [Nss] 1,000 ml IV BOLUS
04/17/25 13:57
NORepinephrine 4 MG/250 ML [Levophed] 4 mg in 250 ml .ROUTE .[facility]
04/17/25 13:58
Dextrose 50%-Water [Dextrose 50% Syringe] 50 grams .ROUTE .[facility] ONE
04/17/25 14:00
Fentanyl Citrate/Pf [Sublimaze] 75 mcg IV NOW STA
04/17/25 14:02
Fentanyl Citrate/Pf [Sublimaze] 100 mcg .ROUTE .[facility] ONE
04/17/25 14:12
EPINEPHrine 4 mg/250 mL NSS [Adrenalin] 4 mg in 250 ml .ROUTE .[facility]
04/17/25 14:15
ABG [Arterial Blood Gas] Stat
%Oxygen/Room Air: 90
04/17/25 14:30
Vasopressin 20 Units/100 ml [Pitressin] 20 units in 100 ml IV PER PROTOCOL
04/17/25 14:34
CT Head W/o Iv Contrast Urgent
Comment:
Reason For Exam: post cardiac arrest
CT Pe/abd/pel W Urgent
Comment:
Reason For Exam: cardiac arrest
04/17/25 14:35
Edge [facility]ger Consult Urgent
Consulting Provider: Aneesh Green
Was physician already notified: Yes
Piperacillin/Tazo 3.375 Gram [Zosyn] 3.375 gram in 50 ml IV NOW
Vancomycin [Vancocin] 2,000 mg 0.9% Sodium Chloride 500 ml [Nss] 500 ml IV NOW
04/17/25 14:44
COVID-19 Antigen Urgent
Source: Nasal Swab
Urinalysis Reflex To Culture Urgent
Date Specimen was Collected: 04/17/25
Time Specimen was Collected: 13:28
Urine Microscopic Reflex Cult Urgent
Blood Culture Q30M
YOVANI Source: Blood/Venous
Specimen Description:
Influenza A+B Rapid Molecular Urgent
YOVANI Source: Nasal Swab
Specimen Description:
Urine Culture Urgent
YOVANI Source: U
Specimen Description:
Date Specimen was Collected: 04/17/25
Time Specimen was Collected: 13:28
04/17/25 14:47
CARDIOLOGY CONSULT Urgent
Consulting Provider: Pablo Harris
Was physician already notified: Yes
04/17/25 14:49
Amiodarone [Cordarone] 150 mg Dextrose 5%/Water 100 ml [D5w] 100 ml IV NOW
Amiodarone [Cordarone] 900 mg DEXTROSE 5% PVC-free BAG [D5W PVC-free BAG] 500 ml IV NOW
Initial Dose in mg/min:: 1
Duration of initial dose (hours):: 6
Subsequent dose in mg/min:: 0.5
Duration of subsequent dose (hours):: 18
Maximum dose in mg/min:: 1
Hold and notify provider if:: Heart rate < 60 BPM or SBP < 90 mmHg or MAP < 60 mmHg
04/17/25 14:51
Amiodarone [Cordarone] 150 mg .ROUTE .[facility] ONE
04/17/25 Dinner
NPO
Allow oral meds: Yes
Allow clear liquids: No
FentaNYL 1,000 MCG/100 ML [Sublimaze] 1,000 mcg in 100 ml IV PER PROTOCOL
Fentanyl Citrate/Pf [Sublimaze] 50 mcg IV [id number] PRN
Propofol 1,000,000 Mcg/100 ml [Diprivan] 1,000,000 mcg in 100 ml IV PER PROTOCOL
04/17/25 15:24
PHENYLephrine 50 MG/250 ML NSS [Ovidio-Synephrine] 50 mg in 250 ml .ROUTE .[facility]
04/17/25 15:30
PHENYLephrine 50 MG/250 ML NSS [Ovidio-Synephrine] 50 mg in 250 ml IV PER PROTOCOL
04/17/25 15:38
Dextrose 50%-Water [Dextrose 50% Syringe] 12.5 grams IV NOW STA
04/17/25 15:43
Dextrose 50%-Water [Dextrose 50% Syringe] 25 grams IV NOW STA
04/17/25 15:51
Sodium Bicarbonate 50 meq IV NOW STA
04/17/25 15:52
Admit/Transfer Patient As Directed
Co-Sign Provider:
Level of Care: Inpatient admission
Assign to:: ICU
Physician / Group: dean
Diagnosis: vT arrest
Reason for Hospitalization: VT arrest
Expected length of stay greater than two midnights?: Yes
ELOS- Estimated Length of Stay in days: 2
I certify the patient meets the requirements for IP care: Yes
Code Status As Directed
Resuscitation Status: Full Code
PRN Pain Medication Management As Directed
May give lesser potent ordered pain med per pt: Yes
preference::
Protocol:: Medication orders for pain may be administered in a
manner that supports deferring to patient preference
when the pt is:
- Requesting an ordered lesser potent pain medication.
Least to most potent pain medications are defined
as: acetaminophen < NSAID < tramadol < opioids
(morphine, oxycodone, hydromorphone).
- Requesting a lesser dose of the same medication IF
ORDERED.
- Requesting a less intrusive route of administration
if both routes are prescribed by the provider (PO <
IV).
04/17/25 15:56
Echo Follow up Study W Dop Urgent
Reason for Study: cardiac arrest
04/17/25 16:00
Dextrose 10%/Water 500 ml [D10w] 500 ml IV 100 mls/hr
04/17/25 16:27
Dextrose 10%/Water 1000 ml [D10w] 1,000 ml IV 100 mls/hr
VANCOMYCIN Pharmacy to Dose [VANCOCIN Pharmacy to Dose] 1 each Pharmacy To Prepare [Call Pharmacy To Prepare] 0 ml IV PER PROTOCOL
04/17/25 16:27
Accucheck [Bedside Glucose Monitoring] As Directed
Frequency: Q1H
Activity As Directed
Activity Level: As Tolerated
Vital Signs As Directed
Frequency: Per unit guidelines
DX Deep Vein Thrombosis Video Routine
04/17/25 18:18
Lactate Level [Lactic Acid] Q6H
04/17/25 20:00
Heparin 5,000 units SC Q12
04/17/25 22:00
Piperacillin/Tazo 2.25 Gram [Zosyn] 2.25 grams in 50 ml IV Q6H
04/17/25 22:27
Lactate Level [Lactic Acid] Q6H
04/18/25 06:00
Complete Blood Count/With Diff IN AM
Comprehensive Metabolic Panel IN AM
04/18/25 08:00
Pantoprazole [Protonix IV] 40 mg IV DAILY
Abnormal Lab Results
04/17/25 04/17/25 04/17/25
13:15 13:31 13:32
RBC 3.78 L 10^6/uL
(4.20-5.40)
Hgb 8.3 L g/dL
(12.0-16.0)
Hct 25.7 L %
(37.0-47.0)
MCV 68.0 L fL
(81.0-99.0)
MCH 22.0 L pg
(27.0-31.0)
MCHC 32.3 L g/dL
(33.0-37.0)
RDW 20.4 H %
(11.5-14.5)
Plt Count 48 L 10^3/uL
(130-400)
Abs Immat Gran (auto) 0.1 H 10^3/uL
(0-0.05)
Absolute Lymphs (auto) 0.6 L 10^3/uL
(1.2-3.4)
Immature Gran % 0.7 H %
(0-0.5)
Neutrophils % 82.8 H %
(42.2-75.2)
Lymphocytes % 8.2 L %
(20.5-51.1)
pH
pCO2
pO2
HCO3
ABG O2 Sat (Measured)
Sodium 130 L mmol/L
(135-145)
Chloride 95 L mmol/L
(98-107)
Carbon Dioxide 19 L mmol/L
(22-30)
BUN 80 H mg/dl
(7-17)
Creatinine 4.1 H* mg/dL
(0.6-1.0)
Glucose 197 H mg/dl
(70-99)
Lactic Acid 6.1 H* mmol/L
(0.7-2.0)
Calcium 7.8 L mg/dl
(8.4-10.2)
Total Bilirubin 5.9 H mg/dl
(0.2-1.3)
AST 235 H U/L
(14-36)
ALT 203 H U/L
(0-35)
Alkaline Phosphatase 209 H U/L
(38-126)
Albumin 3.3 L g/dl
(3.5-5.0)
Ur Occult Blood Reflex
Urine Bilirubin
Urine Urobilinogen
Leukocyte Esterase Rfl
Urine RBC
Urine WBC (Reflex)
Urine Bacteria (Reflex)
Urine Glucose
Urine Albumin (Reflex)
POC Glucose 32 L* mg/dl
(70-99)
04/17/25 04/17/25 04/17/25
13:38 14:04 14:15
RBC
Hgb
Hct
MCV
MCH
MCHC
RDW
Plt Count
Abs Immat Gran (auto)
Absolute Lymphs (auto)
Immature Gran %
Neutrophils %
Lymphocytes %
pH 7.08 L*
(7.35-7.45)
pCO2 38 H mmHg
(32-35)
pO2 175 H mmHg
(83-108)
HCO3 11.3 L* mmol/L
(21-28)
ABG O2 Sat (Measured) 100.0 H %
(94-98)
Sodium
Chloride
Carbon Dioxide
BUN
Creatinine
Glucose
Lactic Acid
Calcium
Total Bilirubin
AST
ALT
Alkaline Phosphatase
Albumin
Ur Occult Blood Reflex
Urine Bilirubin
Urine Urobilinogen
Leukocyte Esterase Rfl
Urine RBC
Urine WBC (Reflex)
Urine Bacteria (Reflex)
Urine Glucose
Urine Albumin (Reflex)
POC Glucose 27 L* mg/dl > 600 H* mg/dl
(70-99) (70-99)
04/17/25 04/17/25 04/17/25
14:44 15:37 15:55
RBC
Hgb
Hct
MCV
MCH
MCHC
RDW
Plt Count
Abs Immat Gran (auto)
Absolute Lymphs (auto)
Immature Gran %
Neutrophils %
Lymphocytes %
pH
pCO2
pO2
HCO3
ABG O2 Sat (Measured)
Sodium
Chloride
Carbon Dioxide
BUN
Creatinine
Glucose
Lactic Acid
Calcium
Total Bilirubin
AST
ALT
Alkaline Phosphatase
Albumin
Ur Occult Blood Reflex 4+ A
(Negative)
Urine Bilirubin 2+ A
(Negative)
Urine Urobilinogen 2+ A
(Neg - 1+)
Leukocyte Esterase Rfl 1+ A
(Negative)
Urine RBC 7-10 A /HPF
(0-2)
Urine WBC (Reflex) 11-15 A /HPF
(0-5)
Urine Bacteria (Reflex) Many A
(Negative)
Urine Glucose 1+ A
(Negative)
Urine Albumin (Reflex) 4+ A
(Neg - Trace)
POC Glucose 28 L* mg/dl 66 L mg/dl
(70-99) (70-99)
04/17/25 13:31
04/17/25 13:31
Vital Signs
Initial and Last Documented VS:
Initial Vital Signs
Pulse Resp BP
63 28 82/50
04/17/25 13:14 04/17/25 13:14 04/17/25 13:14
Last Documented Vital Signs
Temp Pulse Resp BP Pulse Ox
36.5 C 0 0 125/82 55
04/17/25 13:35 04/17/25 16:45 04/17/25 16:45 04/17/25 16:45 04/17/25 16:34
<Clarence Durham, DO - Last Filed: 04/17/25 14:29>
Orders/Labs/Results
Orders:
Orders
04/17/25
Electrocardiogram (*1) Stat
Comment: DONE
04/17/25 13:22
Dextrose 50%-Water [Dextrose 50% Syringe] 25 grams .ROUTE .[facility] ONE
Dextrose 50%-Water [Dextrose 50% Syringe] 25 grams IV NOW STA
04/17/25 13:27
Electrocardiogram (*1) Urgent
Reason for Study: Chest Pain
IV Insert/Care/Rem.- Treatment PRN
Cr Chest Portable [CR Chest Portable - 1 View] Urgent
Comment:
Reason For Exam: weakness, CHF
Reason Study Needs to be Portable: Unable to Transport
04/17/25 13:29
0.9% Sodium Chloride 1000 ml [Nss] 1,000 ml IV BOLUS
04/17/25 13:31
Complete Blood Count/With Diff Urgent
Comprehensive Metabolic Panel Urgent
NT-proBNP Urgent
04/17/25 13:32
Cortisol, Random Urgent
Lactate Level [Lactic Acid] Urgent
TSH Reflex To Free T4 Urgent
Blood Culture Q30M
YOVANI Source: Blood/Venous
Specimen Description:
04/17/25 13:39
Dextrose 50%-Water [Dextrose 50% Syringe] 50 grams .ROUTE .[facility] ONE
04/17/25 13:42
Dextrose 50%-Water [Dextrose 50% Syringe] 25 grams IV NOW STA
04/17/25 13:44
0.9% Sodium Chloride 500 ml [Nss] 500 ml IV BOLUS
04/17/25 13:45
0.9% Sodium Chloride 500 ml [Nss] 1,000 ml IV BOLUS
04/17/25 13:57
NORepinephrine 4 MG/250 ML [Levophed] 4 mg in 250 ml .ROUTE .[facility]
04/17/25 13:58
Dextrose 50%-Water [Dextrose 50% Syringe] 50 grams .ROUTE .[facility] ONE
04/17/25 14:00
Fentanyl Citrate/Pf [Sublimaze] 75 mcg IV NOW STA
04/17/25 14:02
Fentanyl Citrate/Pf [Sublimaze] 100 mcg .ROUTE .[facility] ONE
04/17/25 14:12
EPINEPHrine 4 mg/250 mL NSS [Adrenalin] 4 mg in 250 ml .ROUTE .[facility]
04/17/25 14:15
ABG [Arterial Blood Gas] Stat
%Oxygen/Room Air: 90
04/17/25 14:30
Vasopressin 20 Units/100 ml [Pitressin] 20 units in 100 ml IV PER PROTOCOL
04/17/25 14:34
CT Head W/o Iv Contrast Urgent
Comment:
Reason For Exam: post cardiac arrest
CT Pe/abd/pel W Urgent
Comment:
Reason For Exam: cardiac arrest
04/17/25 14:35
Edge Plugger Consult Urgent
Consulting Provider: Aneesh Green
Was physician already notified: Yes
Piperacillin/Tazo 3.375 Gram [Zosyn] 3.375 gram in 50 ml IV NOW
Vancomycin [Vancocin] 2,000 mg 0.9% Sodium Chloride 500 ml [Nss] 500 ml IV NOW
04/17/25 14:44
COVID-19 Antigen Urgent
Source: Nasal Swab
Urinalysis Reflex To Culture Urgent
Date Specimen was Collected: 04/17/25
Time Specimen was Collected: 13:28
Urine Microscopic Reflex Cult Urgent
Blood Culture Q30M
YOVANI Source: Blood/Venous
Specimen Description:
Influenza A+B Rapid Molecular Urgent
YOVANI Source: Nasal Swab
Specimen Description:
Urine Culture Urgent
YOVANI Source: U
Specimen Description:
Date Specimen was Collected: 04/17/25
Time Specimen was Collected: 13:28
04/17/25 14:47
CARDIOLOGY CONSULT Urgent
Consulting Provider: Pablo Harris
Was physician already notified: Yes
04/17/25 14:49
Amiodarone [Cordarone] 150 mg Dextrose 5%/Water 100 ml [D5w] 100 ml IV NOW
Amiodarone [Cordarone] 900 mg DEXTROSE 5% PVC-free BAG [D5W PVC-free BAG] 500 ml IV NOW
Initial Dose in mg/min:: 1
Duration of initial dose (hours):: 6
Subsequent dose in mg/min:: 0.5
Duration of subsequent dose (hours):: 18
Maximum dose in mg/min:: 1
Hold and notify provider if:: Heart rate < 60 BPM or SBP < 90 mmHg or MAP < 60 mmHg
04/17/25 14:51
Amiodarone [Cordarone] 150 mg .ROUTE .[facility] ONE
04/17/25 Dinner
NPO
Allow oral meds: Yes
Allow clear liquids: No
FentaNYL 1,000 MCG/100 ML [Sublimaze] 1,000 mcg in 100 ml IV PER PROTOCOL
Fentanyl Citrate/Pf [Sublimaze] 50 mcg IV [id number] PRN
Propofol 1,000,000 Mcg/100 ml [Diprivan] 1,000,000 mcg in 100 ml IV PER PROTOCOL
04/17/25 15:24
PHENYLephrine 50 MG/250 ML NSS [Ovidio-Synephrine] 50 mg in 250 ml .ROUTE .[facility]
04/17/25 15:30
PHENYLephrine 50 MG/250 ML NSS [Ovidio-Synephrine] 50 mg in 250 ml IV PER PROTOCOL
04/17/25 15:38
Dextrose 50%-Water [Dextrose 50% Syringe] 12.5 grams IV NOW STA
04/17/25 15:43
Dextrose 50%-Water [Dextrose 50% Syringe] 25 grams IV NOW STA
04/17/25 15:51
Sodium Bicarbonate 50 meq IV NOW STA
04/17/25 15:52
Admit/Transfer Patient As Directed
Co-Sign Provider:
Level of Care: Inpatient admission
Assign to:: ICU
Physician / Group: dean
Diagnosis: vT arrest
Reason for Hospitalization: VT arrest
Expected length of stay greater than two midnights?: Yes
ELOS- Estimated Length of Stay in days: 2
I certify the patient meets the requirements for IP care: Yes
Code Status As Directed
Resuscitation Status: Full Code
PRN Pain Medication Management As Directed
May give lesser potent ordered pain med per pt: Yes
preference::
Protocol:: Medication orders for pain may be administered in a
manner that supports deferring to patient preference
when the pt is:
- Requesting an ordered lesser potent pain medication.
Least to most potent pain medications are defined
as: acetaminophen < NSAID < tramadol < opioids
(morphine, oxycodone, hydromorphone).
- Requesting a lesser dose of the same medication IF
ORDERED.
- Requesting a less intrusive route of administration
if both routes are prescribed by the provider (PO <
IV).
04/17/25 15:56
Echo Follow up Study W Dop Urgent
Reason for Study: cardiac arrest
04/17/25 16:00
Dextrose 10%/Water 500 ml [D10w] 500 ml IV 100 mls/hr
04/17/25 16:27
Dextrose 10%/Water 1000 ml [D10w] 1,000 ml IV 100 mls/hr
VANCOMYCIN Pharmacy to Dose [VANCOCIN Pharmacy to Dose] 1 each Pharmacy To Prepare [Call Pharmacy To Prepare] 0 ml IV PER PROTOCOL
04/17/25 16:27
Accucheck [Bedside Glucose Monitoring] As Directed
Frequency: Q1H
Activity As Directed
Activity Level: As Tolerated
Vital Signs As Directed
Frequency: Per unit guidelines
DX Deep Vein Thrombosis Video Routine
04/17/25 18:18
Lactate Level [Lactic Acid] Q6H
04/17/25 20:00
Heparin 5,000 units SC Q12
04/17/25 22:00
Piperacillin/Tazo 2.25 Gram [Zosyn] 2.25 grams in 50 ml IV Q6H
04/17/25 22:27
Lactate Level [Lactic Acid] Q6H
04/18/25 06:00
Complete Blood Count/With Diff IN AM
Comprehensive Metabolic Panel IN AM
04/18/25 08:00
Pantoprazole [Protonix IV] 40 mg IV DAILY
Abnormal Lab Results
04/17/25 04/17/25 04/17/25
13:15 13:31 13:32
RBC 3.78 L 10^6/uL
(4.20-5.40)
Hgb 8.3 L g/dL
(12.0-16.0)
Hct 25.7 L %
(37.0-47.0)
MCV 68.0 L fL
(81.0-99.0)
MCH 22.0 L pg
(27.0-31.0)
MCHC 32.3 L g/dL
(33.0-37.0)
RDW 20.4 H %
(11.5-14.5)
Plt Count 48 L 10^3/uL
(130-400)
Abs Immat Gran (auto) 0.1 H 10^3/uL
(0-0.05)
Absolute Lymphs (auto) 0.6 L 10^3/uL
(1.2-3.4)
Immature Gran % 0.7 H %
(0-0.5)
Neutrophils % 82.8 H %
(42.2-75.2)
Lymphocytes % 8.2 L %
(20.5-51.1)
pH
pCO2
pO2
HCO3
ABG O2 Sat (Measured)
Sodium 130 L mmol/L
(135-145)
Chloride 95 L mmol/L
(98-107)
Carbon Dioxide 19 L mmol/L
(22-30)
BUN 80 H mg/dl
(7-17)
Creatinine 4.1 H* mg/dL
(0.6-1.0)
Glucose 197 H mg/dl
(70-99)
Lactic Acid 6.1 H* mmol/L
(0.7-2.0)
Calcium 7.8 L mg/dl
(8.4-10.2)
Total Bilirubin 5.9 H mg/dl
(0.2-1.3)
AST 235 H U/L
(14-36)
ALT 203 H U/L
(0-35)
Alkaline Phosphatase 209 H U/L
(38-126)
Albumin 3.3 L g/dl
(3.5-5.0)
Ur Occult Blood Reflex
Urine Bilirubin
Urine Urobilinogen
Leukocyte Esterase Rfl
Urine RBC
Urine WBC (Reflex)
Urine Bacteria (Reflex)
Urine Glucose
Urine Albumin (Reflex)
POC Glucose 32 L* mg/dl
(70-99)
04/17/25 04/17/25 04/17/25
13:38 14:04 14:15
RBC
Hgb
Hct
MCV
MCH
MCHC
RDW
Plt Count
Abs Immat Gran (auto)
Absolute Lymphs (auto)
Immature Gran %
Neutrophils %
Lymphocytes %
pH 7.08 L*
(7.35-7.45)
pCO2 38 H mmHg
(32-35)
pO2 175 H mmHg
(83-108)
HCO3 11.3 L* mmol/L
(21-28)
ABG O2 Sat (Measured) 100.0 H %
(94-98)
Sodium
Chloride
Carbon Dioxide
BUN
Creatinine
Glucose
Lactic Acid
Calcium
Total Bilirubin
AST
ALT
Alkaline Phosphatase
Albumin
Ur Occult Blood Reflex
Urine Bilirubin
Urine Urobilinogen
Leukocyte Esterase Rfl
Urine RBC
Urine WBC (Reflex)
Urine Bacteria (Reflex)
Urine Glucose
Urine Albumin (Reflex)
POC Glucose 27 L* mg/dl > 600 H* mg/dl
(70-99) (70-99)
04/17/25 04/17/25 04/17/25
14:44 15:37 15:55
RBC
Hgb
Hct
MCV
MCH
MCHC
RDW
Plt Count
Abs Immat Gran (auto)
Absolute Lymphs (auto)
Immature Gran %
Neutrophils %
Lymphocytes %
pH
pCO2
pO2
HCO3
ABG O2 Sat (Measured)
Sodium
Chloride
Carbon Dioxide
BUN
Creatinine
Glucose
Lactic Acid
Calcium
Total Bilirubin
AST
ALT
Alkaline Phosphatase
Albumin
Ur Occult Blood Reflex 4+ A
(Negative)
Urine Bilirubin 2+ A
(Negative)
Urine Urobilinogen 2+ A
(Neg - 1+)
Leukocyte Esterase Rfl 1+ A
(Negative)
Urine RBC 7-10 A /HPF
(0-2)
Urine WBC (Reflex) 11-15 A /HPF
(0-5)
Urine Bacteria (Reflex) Many A
(Negative)
Urine Glucose 1+ A
(Negative)
Urine Albumin (Reflex) 4+ A
(Neg - Trace)
POC Glucose 28 L* mg/dl 66 L mg/dl
(70-99) (70-99)
04/17/25 13:31
04/17/25 13:31
Vital Signs
Initial and Last Documented VS:
Initial Vital Signs
Pulse Resp BP
63 28 82/50
04/17/25 13:14 04/17/25 13:14 04/17/25 13:14
Last Documented Vital Signs
Temp Pulse Resp BP Pulse Ox
36.5 C 0 0 125/82 55
04/17/25 13:35 04/17/25 16:45 04/17/25 16:45 04/17/25 16:45 04/17/25 16:34
Procedures
<David Chaudhari MD - Last Filed: 04/17/25 20:43>
Intubations
Procedure completed by: David Chaudhari MD
Method of Intubation: glidescope
Tube size (cm): 7.5
Placement confirmed by: placement corrected (retracted 1cm)
Breath sounds after intubation: equal
Intubation complications: no complications
IV Access
Indication: Emergent access required, RN unable to obtain and Physician skill needed
Performed by:: David Chaudhari MD
Site:: right AC, left AC (bilateral large bore access established)
Gauge:: 18G
Ultrasound Guidance: Yes
<Clarence Durham DO - Last Filed: 04/17/25 14:29>
Central Line
Right Femoral:
Procedure completed by: , Dr. Durham
Consent form signed: No
If no, reason: Emergency procedure
Anesthesia: 1% Lidocaine
Central line lumen: triple
Number of attempts: 2
Central line complications: none
Sterile dressing applied?: Yes
<David Chaudhari MD - Last Filed: 04/17/25 20:43>
MDM/Problems Addressed
Differential Diagnosis Includes:
Wide differential diagnosis�lethargy could be due to hypoglycemia or hypoglycemia could be a result of lethargy and poor p.o. intake after taking her insulin; anemia, electrolyte derangement, CHF, infection including foot infections, pneumonia, UTI,
thyroid emergency, etc
MDM/Problems Addressed:
64-year-old female presents for evaluation of lethargy. Found to be hypoglycemic in the field. It sounds like she did use insulin this morning with poor intake thereafter, unclear how much she took or at what time. She arrives to us hypotensive
blood pressure 60s to 80s, pulse rate 70s, tachypnea with respiratory rate 26-28, no hypoxia. Her glucose on arrival here was 32. Placed bilateral large-bore IVs. 1 amp of D50 given in addition to oral glucose. Labs sent off including CBC, CMP,
lactate and blood cultures, proBNP. Check urinalysis. Check chest x-ray and EKG. Provide IV fluid resuscitation. Monitor very closely here.
Shortly after initial arrival and IV placement patient had a witnessed cardiac arrest. Ventricular tachycardia on the monitor. ACLS initiated immediately by , pacer pads applied and patient received shock x 1. Received ACLS as documented in
nursing run sheet�although initially ventricular tachycardia, PEA thereafter. She received multiple rounds of epinephrine. Intubated during her resuscitation. ROSC achieved. Post resuscitate EKG diffusely ischemic reviewed with cardiology�no
plan for Medical Lab Technologist. Will start amiodarone infusion. Lab work reviewed from prearrest and shows that she is in multisystem failure with anemia, renal failure with creatinine of 4.1, hepatic failure with elevated bilirubin and transaminases with
severe hypoglycemia, congestive heart failure. I did cover empirically with antibiotics and send off blood cultures. Case was discussed with the research development manager for assessment. Case was discussed with hospitalist to facilitate ICU admission. Plan to
send for a CT of the head, CT chest PE, CT abdomen pelvis postarrest. Monitor very closely. I spoke to the family review events and discussed critical condition and poor prognosis.
Chronic conditions affecting care:
Diabetes, CHF
<David Chaudhari MD - Last Filed: 04/17/25 20:43>
*Radiology
Radiology exam reviewed: preliminary read by ED provider
*Pulse Oximetry
Oxygen Mode of Delivery: Room air
Patient hypoxic: yes (80%)
*Critical Care Note
Total Time (30-74mins, 75-104mins- exclusive of procedures): 47
comment:
Critical care statement: A total of 47 minutes of critical care time was provided for this patient. This includes management of unstable vital signs, evaluation of the patient at bedside, frequent reassessment, discussion with
consultants/hospitalist, and review of pertinent medical records. This time was separate from time utilized to perform any aforementioned documented procedures
Data Reviewed
Source: patient, family and ambulance crew
ED Attending Note
<David Chaudhari MD - Last Filed: 04/17/25 20:43>
-
Portions of this chart may have been created with voice recognition software.� Occasional wrong word or��sound alike� substitutions may have occurred due to the inherent limitations of voice recognition software.
Discharge Plan
Departure
Patient Disposition: Admit
Date of Disposition: 04/17/25
Time of Disposition: 14:36
Admit to doctor: Dean
Presentation/result/management discussed w/ accepting MD/DO: Hospitalist
Discharge Problem:
Hypoglycemia, Cardiac arrest, Heart failure, Liver failure, Renal failure
Interventions
Interventions:
*General Assessment Last Done: 04/17/25 16:24
*Neglect/Abuse Screening Last Done: 04/17/25 16:24
*ED- Fall Risk Assessment Last Done: 04/17/25 16:24
*Nursing Disposition Last Done: 04/17/25 16:24
ED- Neurological Assessment Last Done: 04/17/25 16:26
Discharge Date and Time
Discharge Date/Time: 04/17/25 16:26
[2025-04-17] MEDS: NSS 1000 IV ×2 (13:35→13:44)
[2025-04-17 13:51] LABS: Glucose - Point of Care 27 mg/dl (70-99)
[2025-04-17] MEDS: SUBLIMAZE 75 MCG IV (14:00)
[2025-04-17] MEDS: LEVOPHED 250 IV (14:00)
[2025-04-17 14:03] LABS: ALT (SGPT) 203 U/L (0-35); AST (SGOT) 235 U/L (14-36); Albumin 3.3 g/dl (3.5-5.0); Alkaline Phosphatase 209 U/L (38-126); Blood Urea Nitrogen 80 mg/dl (7-17); Calcium 7.8 mg/dl (8.4-10.2); Carbon Dioxide 19 mmol/L (22-30); Chloride 95 mmol/L (98-107); Glucose 197 mg/dl (70-99); Potassium 3.6 mmol/L (3.5-5.1); Sodium 130 mmol/L (135-145); Total Protein 6.5 g/dl (6.3-8.2)
[2025-04-17 14:05] LABS: Glucose - Point of Care > 600 mg/dl (70-99)
[2025-04-17 14:17] LABS: Estimated Creatinine Clearance 13 ml/min; eGFR 11.57
[2025-04-17 14:23] LABS: Hematocrit 25.7 % (37.0-47.0); Hemoglobin 8.3 g/dL (12.0-16.0); Mean Corp Hgb Conc. 32.3 g/dL (33.0-37.0); Mean Corpuscular Volume 68.0 fL (81.0-99.0); Red Cell Dist. Width 20.4 % (11.5-14.5)
--- NOTE | 2025-04-17 14:24 | EDRN ---
Oral gastric tube #16 Fr placed at this time. Dr. Chaudhari spoke w/ family.
[2025-04-17] MEDS: PITRESSIN 100 IV (14:30)
--- NOTE | 2025-04-17 14:30 | EDRN ---
16 Fr mccallum inserted at this time.
--- NOTE | 2025-04-17 14:37 | EDRN ---
Family has left and is not here.
--- NOTE | 2025-04-17 14:38 | EDRN ---
Vasopressin 0.03 started at this time.
[2025-04-17 14:41] LABS: B.E. -17.6 mmol/L; O2 Saturation % 100.0 % (94-98); PCO2 38 mmHg (32-35); PO2 175 mmHg (83-108)
[2025-04-17 14:43] LABS: HCO3 11.3 mmol/L (21-28)
--- NOTE | 2025-04-17 14:49 | CON.CAR ---
Addendum entered and electronically signed by Pablo Harris MD 04/17/25 19:05:
I saw and examined the patient.
The Frameman's note was reviewed and I agree with the note.
Comment:
GEN: Intubated unresponsive
HEENT: supple, anicteric, mmm, ET tube
LUNGS: CTA, no wheezes/rales
CV: Reg, S1/S2, 1/6 syst LSB, no gallop
ABD: soft, BS+, NT/ND
EXT: No edema
NEURO: not following commands
SKIN: No rash
PLan:
64-year-old female with extensive past medical history including coronary artery bypass surgery August 2024 at [facility], complicated by postoperative VF arrest with ICD placement and C. difficile colitis presents to [facility] with fatigue, shortness of breath, lethargic and cardiac arrest. Patient was feeling poorly and ultimately presented to the emergency room where she found to be hypoglycemic and had PEA arrest with ACLS and multiple rounds of epinephrine.
The patient was then intubated. She reobtained a blood pressure and pulse. EKG revealed a wide-complex tachycardia and amiodarone was initiated. Patient had more hypotension in the CT scan and ultimately she was placed on multiple pressors
including Levophed, vasopressin and then Ovidio-Synephrine. CT scan revealed no pericardial effusion or pulmonary embolism. She remained critically ill and ultimately was transferred to the intensive care unit. Sodium bicarbonate was given multiple
times.
Lab work revealed a creatinine of 4.1 with acute renal failure, a lactate of 6.1, potassium of 3.6 and sodium of 130. She also had transaminitis with AST of 237 and ALT of 203. White blood cell count was 7.6 with a hemoglobin of 8, she was
thrombocytopenic with a platelet count of 48,000.
Upon arrival back in the intensive care unit she had another cardiac arrest at 5 PM requiring multiple rounds of CPR and epinephrine. She again regained her pulse and an epinephrine drip was initiated. Blood pressure was 90/60 with a heart rate of
88 and sinus rhythm with a left bundle branch block. About 1 hour later she had another cardiac arrest with PEA arrest requiring CPR, more cycles of epinephrine.
At that time I spoke with the family with Dr. Hernández of pulmonary/critical care and had a lengthy discussion with the family who agreed to DNR.
She remains on IV epinephrine, Ovidio-Synephrine, vasopressin, and Levophed.
A stat echo was performed which revealed an ejection fraction of 10% with normal RV function and no pericardial effusion.
Continue IV amiodarone. Hold all oral medication. Prognosis is grave.
Critical care time 1 hour and 45 minutes.
Original Note:
Consultation
Consultation Request
Date/Time Consultation Requested: 04/17/2025
Date/Time Consultation Performed: 04/17/2025
Requesting Provider: Dr. Zheng
Performing Provider: Dr. Harris
Reason for Consultation: PEA arrest
Medical History
-
History of Present Illness:
Patient came to [facility] ER today with SOB and hypoglycemia cardiology is consulted following PEA arrest. Paramedics came to the patient's home today for complaints of SOB and found patient AAO x 3, but lethargic and she was hypoglycemic on fasting
glucose check. Patient was given oral glucose and glucose IM in the ambulance. In the ER patient remained hypoglycemic. IV was placed. Patient had VT and had external defibrillation. Patient has an AICD as well, not clear if that fired.
Patient then had PEA arrest with ACLS and multiple rounds of epi. Patient was intubated. ROSC was achieved. I encountered patient in the CT scan and she had intact pulses and SR with chronic LBBB on portable engine monitor. Patient intubated
and sedated. Amiodarone bolus was not running on my arrival, but nursing was able to start just prior to CT scan. Patient receiving levo and vaso as pressors. Patient previously admitted to [facility] 08/20/2024 until 08/26/2024 with NSTEMI and MV CAD.
Patient with previous anaphylactic allergy to aspirin and there was an attempt at aspirin desensitization starting on the night of 08/21/2024 and patient had swollen eyes and hand tremors so desensitization therapy was stopped and the family was not
interested in another attempt. It then came to light that the patient's family member is a senior concrete engineering technician at [employer] and the family requested transfer which was performed on 08/26/2024. Patient had CABG and postop suffered VF arrest. Post CABG
cardiac cath showed patent grafts and patient ultimately had an Martini [employer] ICD placed. Patient also had C. difficile postop and there were also right toe amputations that were performed all as part of her postop course. Patient was just
admitted to [facility] 01/20/2025 until 01/24/2025 with acute HFrEF and dysphagia, but GI workup was unrevealing in part because colonoscopy prep was inadequate. Patient was admitted again 02/13/2025 until 03/02/2025 with recurrent foot wound. Patient was
admitted most recently 03/06/2025 until 03/09/2025 with recurrent acute HF. I was able to talk with the patient's family and they report lethargy and SOB for a few days prior to calling 911.
[facility]:
Recent admission for acute HF 03/06/2025 until 03/09/2025
Recent admission for LE wound and CHF 02/13/2025 until 03/02/2025
Recent admission for acute HF and dysphagia 01/20/2025 until 01/24/2025
Chronic HFrEF
ICM EF 20 to 25% by echo 12/19/2024
Severe TR with PAP 63 mmHg
Chronic dysphagia, chronic abdominal pain
CAD s/p CABG with VILLAFUERTE to LAD, saphenous vein to diagonal, saphenous vein to obtuse marginal at [employer] 08/26/24
Postop VF arrest
Patent VILLAFUERTE to LAD, patent SVG to diagonal, patent SVG to OM by postop cardiac cath
s/p Martini [employer] SC ICD at [employer] 08/2024
h/o C. difficile postop CABG at [employer]
Anaphylactic aspirin allergy with previous mild allergic reaction during attempted aspirin desensitization therapy at [facility] 08/24/24
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
no options on peripheral angiogram 02/16/25, outpatient eval for Limflow procedure for known obliterative small vessel disease
DM 2
Diabetic neuropathy
Lupus
Hypertension
Dyslipidemia
CKD4
Past Medical History
Past Medical History: Other (In HPI)
Past Surgical History: Cardiac (s/p CABG-08/26/2024, Martini [employer] Eric single-chamber ICD at [employer] 08/2024) and Other (PAD with partial amputations of the right 2nd and 3rd toes)
Social History
Tobacco: Non-Smoker
Alcohol: None
Personal:
Living: With Family
Family History
Family History: CAD
Allergies / Home Medications
Allergy/AdvReac Type Severity Reaction Status Date / Time
aspirin Allergy Anaphylaxis Verified 04/17/25 14:05
/rash
�Medication �Instructions �Recorded �Confirmed �Type
amiodarone 200 mg tablet 200 mg PO QPM Arrhythmia 01/20/25 03/06/25 History
atorvastatin 40 mg tablet 40 mg PO DAILY High Cholesterol 01/20/25 03/06/25 History
clopidogrel 75 mg tablet 75 mg PO QPM Blood Clot 01/20/25 03/06/25 History
Prevention/Tx
insulin aspart U-100 100 unit/mL 7 sliding scale dose SC AC Diabetes 02/13/25 03/06/25 History
subcutaneous solution
hydroxychloroquine 200 mg tablet 200 mg PO BID Lupus 02/20/25 03/06/25 History
citalopram 20 mg tablet 20 mg PO DAILY Mental 03/02/25 03/06/25 Rx
Health/Anxiety #0 tabs
furosemide 80 mg tablet 80 mg PO DAILY #30 tabs 03/02/25 03/06/25 Rx
metoprolol succinate 25 mg 25 mg PO DAILY #30 tabs 03/02/25 03/06/25 Rx
tablet,extended release 24 hr
pantoprazole 40 mg tablet,delayed 40 mg PO DAILY #30 tabs 03/02/25 03/06/25 Rx
release
empagliflozin 10 mg tablet 10 mg PO DAILY 03/06/25 03/06/25 History
(Jardiance)
gabapentin 400 mg capsule 400 mg PO TID 30 days #90 caps 03/09/25 Rx
insulin glargine 100 unit/mL 7 unit (0.07 mL) SC HS Diabetes #0 03/09/25 03/06/25 Rx
subcutaneous solution (Lantus mL
U-100 Insulin)
lidocaine 4 % topical patch 1 patch topical DAILY #30 ea 03/09/25 Rx
miconazole nitrate 2 % topical 1 applic topical BID #85 grams 03/09/25 Rx
powder (Miconazorb AF)
oxycodone 5 mg tablet 5 mg PO Q8H PRN severe pain #9 tabs 03/09/25 Rx
Review of Systems
-
History Source: Transfer Record
All other systems: Negative unless noted
Physical Exam
Vital Signs
Temp Pulse Resp BP
97.7 F 0 0 89/72
04/17/25 13:35 04/17/25 14:30 04/17/25 14:30 04/17/25 14:30
GEN: Intubated and sedated, laying on CT scan table
LUNGS: RA. No audible wheeze
CV: SR on tele. Strong carotid pulse
EXT: Trace to +1 edema B/L
NEURO: Gross non-focal
SKIN: Cyanotic. No rash
Lab Results
04/17/25 13:31
04/17/25 13:31
Tsw-F-Kvrpipdfbxy Pept > 30901 pg/ml 04/17/25 13:31
Impression / Plan
-
Primary care provider: Keli Gonzalez MD
Primary salesperson recreational vehicles: Lan Estrada MD
Impression:
Admitted with hypoglycemia, VT arrest and PEA arrest 04/17/2025
Recent admission for acute HF 03/06/2025 until 03/09/2025
Recent admission for LE wound and CHF 02/13/2025 until 03/02/2025
Recent admission for acute HF and dysphagia 01/20/2025 until 01/24/2025
Hypoglycemia
Cardiac arrest
Witnessed VT arrest treated with external shock in the ER followed by PEA arrest with CPR and several rounds of epi followed by ROSC 04/17/2025
Chronic HFrEF
ICM EF 20 to 25% by echo 12/19/2024
Severe TR with PAP 63 mmHg
Chronic dysphagia, chronic abdominal pain
CAD s/p CABG with VILLAFUERTE to LAD, saphenous vein to diagonal, saphenous vein to obtuse marginal at [employer] 08/26/24
Postop VF arrest
Patent VILLAFUERTE to LAD, patent SVG to diagonal, patent SVG to OM by postop cardiac cath
s/p Martini [employer] Eric SC ICD at [employer] 08/2024
h/o C. difficile postop CABG at [employer]
Anaphylactic aspirin allergy with previous mild allergic reaction during attempted aspirin desensitization therapy at [facility] 08/24/24
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
no options on peripheral angiogram 02/16/25, outpatient eval for Limflow procedure for known obliterative small vessel disease
DM 2
Diabetic neuropathy
Lupus
Hypertension
Dyslipidemia
ANTONIO on CKD4
Echo 07/2024: tricuspid regurgitation increased from trace to severe and systolic pulmonary artery pressure previously was estimated at 25 to 30 mmHg and now is estimated at 63 mmHg.
Echo 12/09/24: finds severely reduced left ventricular systolic function with ejection fraction of 20-25%. Global hypokinesis with septal akinesis. Stage III diastolic dysfunction. Moderate mitral regurgitation, severe tricuspid regurgitation with
estimated pulmonary artery pressure of 63 mmHg.
Right heart catheterization February 21, 2025:
RA pressure 34, RV pressure 64/18, PA pressure 68/29, pulmonary capillary wedge pressure 43. Cardiac output is 1.94 with a cardiac index of 1.11. SVR is 2480 [id number](-5)
Right heart 02/24/2025: 58/22, right atrial pressure 16, cardiac index 2.5 on 02/23
Plan:
-Patient came to [facility] ER today with SOB and hypoglycemia cardiology is consulted following PEA arrest. Paramedics came to the patient's home today for complaints of SOB and found patient AAO x 3, but lethargic and she was hypoglycemic on fasting
glucose check. Patient was given oral glucose and glucose IM in the ambulance. In the ER patient remained hypoglycemic. IV was placed. Patient had VT and had external defibrillation. Patient has an AICD as well, not clear if that fired.
Patient then had PEA arrest with ACLS and multiple rounds of epi. Patient was intubated. ROSC was achieved. I encountered patient in the CT scan and she had intact pulses and SR with chronic LBBB on portable engine monitor. Patient intubated
and sedated. Amiodarone bolus was not running on my arrival, but nursing was able to start just prior to CT scan. Patient receiving levo and vaso as pressors. Patient previously admitted to [facility] 08/20/2024 until 08/26/2024 with NSTEMI and MV CAD.
Patient with previous anaphylactic allergy to aspirin and there was an attempt at aspirin desensitization starting on the night of 08/21/2024 and patient had swollen eyes and hand tremors so desensitization therapy was stopped and the family was not
interested in another attempt. It then came to light that the patient's family member is a senior concrete engineering technician at [employer] and the family requested transfer which was performed on 08/26/2024. Patient had CABG and postop suffered VF arrest. Post CABG
cardiac cath showed patent grafts and patient ultimately had an Martini [employer] Eric ICD placed. Patient also had C. difficile postop and there were also right toe amputations that were performed all as part of her postop course. Patient was just
admitted to [facility] 01/20/2025 until 01/24/2025 with acute HFrEF and dysphagia, but GI workup was unrevealing in part because colonoscopy prep was inadequate. Patient was admitted again 02/13/2025 until 03/02/2025 with recurrent foot wound. Patient was
admitted most recently 03/06/2025 until 03/09/2025 with recurrent acute HF. I was able to talk with the patient's family and they report lethargy and SOB for a few days prior to calling 911.
-ECG reviewed by me is SR with LBBB.
-Patient with VT arrest and was shocked using external pads prior to AICD firing. Patient then had PEA arrest treated with ACLS using CPR and several rounds of epi. Patient was intubated and achieved ROSC. No recurrent arrest.
-Patient remains critically ill with hypotension and shock. Levophed, vasopressin and Ovidio-Synephrine started in the ER prior to transfer to ICU. Shortly after transfer to the ICU patient had another PEA arrest and Epi gtt started in addition,
patient is now on 4 pressor agents. Patient had ROSC with CPR and several rounds of epi. Patient updated in the family waiting room by me and informed of tenuous status. Patient family is asking to remain full CODE STATUS and for all aggressive
measures to be taken
-Hypoglycemia noted on admission and being managed by bow maker
-From a cardiac standpoint, patient with ICM, EF 20 to 25% by echo 12/09/2024
-Outpatient dose of Toprol-XL 25 mg daily is on hold in the setting of hypotension and shock
-Patient was not taking CHELSEY/ARB/ARNI/aldosterone antagonist due to hypotension and ANTONIO on her to most recent admissions
-Outpatient dose of Jardiance will be held given acute critical illness
-Amiodarone bolus given in the ER and amiodarone infusion running. Patient was taking amiodarone 200 mg PO daily prior to admission
-Patient chronically takes Plavix 75 mg daily because she cannot take aspirin due to history of anaphylactic allergy
[2025-04-17 14:59] LABS: Urine Character Slightly Cloudy (Clear)
[2025-04-17 15:15] LABS: Urine Squamous Cell 0-2 /LPF (Few)
[2025-04-17 15:15] LABS: Cortisol, Random 72.9 ug/dl
[2025-04-17 15:20] LABS: COVID-19 Antigen Negative (Negative)
[2025-04-17] MEDS: CORDARONE 103 MG IV (15:20)
--- NOTE | 2025-04-17 15:26 | EDRN ---
BP 39/22 and propofol stopped at this time.
[2025-04-17 15:30] LABS: Nucleated Red Blood Cells % 3.3 %
[2025-04-17] MEDS: NEO-SYNEPHRINE 250 IV (15:30)
[2025-04-17 15:31] LABS: Platelet Count 48 10^3/uL (130-400)
[2025-04-17 15:32] LABS: Burr Cells 3+; Macrocytosis 1+
[2025-04-17 15:33] LABS: Anisocytosis 2+; Hypochromasia 3+; Microcytosis 1+; Normal RBC Morphology No; Target Cells 2+
[2025-04-17] MEDS: ZOSYN 50 IV (15:35)
[2025-04-17] MEDS: CORDARONE 518 MG IV (15:35)
[2025-04-17 15:48] LABS: Glucose - Point of Care 28 mg/dl (70-99)
[2025-04-17] MEDS: D10W 500 IV (15:52)
[2025-04-17] MEDS: SODIUM BICARBONATE 50 MEQ IV (15:52)
--- NOTE | 2025-04-17 16:00 | HPS.HSE ---
Addendum entered and electronically signed by Tom Zheng MD 04/17/25 16:02:
Patient with vomiting yesterday.
Original Note:
Family Physician
-
Family Physician: Keli Hernandez
Chief Complaint
-
weakness
History of Present Illness
64-year-old female past medical history of V-fib arrest status post ICD, CAD status post CABG, chronic HFrEF, severe tricuspid regurgitation, normocytic anemia, type 2 diabetes, prior hypoglycemia, systemic lupus erythematosus, hypertension,
hyperlipidemia, diabetic neuropathy, GERD, anxiety/depression presenting with weakness and lethargy for the past 2 days. �Patient was noted to have significant hypoglycemia by EMS today. �She was given oral glucose and IM glucagon for blood sugar of
42. �Patient is limited historian as she is very lethargic due to hypoglycemia. �She feels very weak. �She denies any chest pain or shortness of breath. �Denies abdominal pain. �Denies vomiting or diarrhea. �Denies urinary symptoms. �Patient states
she did take insulin in the morning.
She was shocked once went into PEA arrest and received CPR for 20-minute intermittently and intubated.
She was brought in by her family today because her toes became fingers became black. She did not have any syncope or dizziness today.
As per family she has been getting progressively more weak over the past few months and not eating much. She was complaining of chronic pain in her left abdomen. No chest pain but did have some raspy shortness of breath recently. No fevers or
chills. Did have increased lower extreme edema today.
Medical History
Past Medical History
Past Medical History: Reports Other (V-fib arrest status post ICD, CAD status post CABG, chronic HFrEF, severe tricuspid regurgitation, normocytic anemia, type 2 diabetes, prior hypoglycemia, systemic lupus erythematosus, hypertension,
hyperlipidemia, diabetic neuropathy, GERD, anxiety/depression)
Past Surgical History: Reports None
Social History
Tobacco: Non-smoker
Alcohol: None
Drug: None
Family History
Family History: Not pertinent
Allergies / Home Medications
Allergies reflects when Allergies were last updated in [employer].
Home Medications with original date entered in [employer]
Allergy/Medication List:
Allergies
Allergy/AdvReac Type Severity Reaction Status Date / Time
aspirin Allergy Anaphylaxis Verified 04/17/25 14:05
/rash
Home Medications
amiodarone 200 mg tablet 200 mg PO QPM Arrhythmia 01/20/25
atorvastatin 40 mg tablet 40 mg PO DAILY High Cholesterol 01/20/25
clopidogrel 75 mg tablet 75 mg PO QPM Blood Clot Prevention/Tx 01/20/25
insulin aspart U-100 100 unit/mL subcutaneous solution 7 sliding scale dose SC AC Diabetes 02/13/25
hydroxychloroquine 200 mg tablet 200 mg PO BID Lupus 02/20/25
citalopram 20 mg tablet 20 mg PO DAILY Mental Health/Anxiety #0 tabs 03/02/25
furosemide 80 mg tablet 80 mg PO DAILY #30 tabs 03/02/25
metoprolol succinate 25 mg tablet,extended release 24 hr 25 mg PO DAILY #30 tabs 03/02/25
pantoprazole 40 mg tablet,delayed release 40 mg PO DAILY #30 tabs 03/02/25
empagliflozin 10 mg tablet (Jardiance) 10 mg PO DAILY 03/06/25
insulin glargine 100 unit/mL subcutaneous solution (Lantus U-100 Insulin) 7 unit (0.07 mL) SC HS Diabetes #0 mL 03/09/25
clonazepam 1 mg tablet 1 mg PO BID 04/17/25
gabapentin 400 mg capsule 400 mg PO TIDPRN PRN mild pain 04/17/25
Review of Systems
-
Constitutional: Reports No Symptoms
EENT: Reports No Symptoms
Respiratory: Reports No Symptoms
Cardiac: Reports No Symptoms
Abdomen/GI: Reports No Symptoms
: Reports No Symptoms
Musculoskeletal: Reports No Symptoms
Skin: Reports No Symptoms
Neurological: Reports No Symptoms
Endocrine: Reports No Symptoms
Hematologic/Lymphatic: Reports No Symptoms
Psych: Reports No Symptoms
Physical Exam
Vital Signs
Vital Signs
Temp Pulse Resp BP Pulse Ox
97.7 F 71 12 90/29 11
04/17/25 13:35 04/17/25 15:40 04/17/25 15:40 04/17/25 15:40 04/17/25 15:35
Physical Exam
General: Well Developed, Well Nourished and No Apparent Distress
HEENT: NormoCephalic, Moist mucous membranes and Atraumatic
Respiratory: Clear
Cardiac: S1/S2 and Regular Rhythm; No Murmur or Rub
GI: Soft, Non Tender, Non Distended and Normal Bowel Sounds; No Organomegaly
Rectal: Deferred by Provider
Musculoskeletal: No Clubbing, No Cyanosis and No Edema
Skin: No Rash
Neuro: Nonfocal/grossly intact
Laboratory Results
-
04/17/25 13:31
04/17/25 13:31
Laboratory Results
pH Cancelled 04/17/25 14:28
pCO2 Cancelled 04/17/25 14:28
pO2 Cancelled 04/17/25 14:28
HCO3 Cancelled 04/17/25 14:28
Lactic Acid 6.1 mmol/L (0.7-2.0) H* 04/17/25 13:32
Total Bilirubin 5.9 mg/dl (0.2-1.3) H 04/17/25 13:31
AST 235 U/L (14-36) H 04/17/25 13:31
ALT 203 U/L (0-35) H 04/17/25 13:31
Alkaline Phosphatase 209 U/L (38-126) H 04/17/25 13:31
Data Reviewed
-
Lab Data: Labs Reviewed by me
Old Records: Reviewed
Impression/Plan
-
IMPRESSION:
PLAN:
# VT cardiac arrest likely in the setting of prior CABG/chronic HFrEF precipitated by hypoglycemia
- Shocked x 1, PEA and coded for 20 minutes intermittently, and intubated
-EKG shows normal sinus rhythm, left bundle branch
-Lactic acid 6
-Chest x-ray result pending
-Patient on propofol, fentanyl drip, Levophed, vasopressin, phenylephrine drip
-Amiodarone drip started
-Blood cultures
- IV fluids
- Empiric vancomycin/Zosyn
-ICD to be interrogated
-CT head, CT PE pending to rule out pulmonary embolism
-Check echo
-Cardiology consulted to evaluate for cardiac ischemia
- Dining Room Supervisor notified
# Hypoglycemia secondary to poor p.o. intake/insulin use with ANTONIO
# Type 2 diabetes on insulin
-Blood sugar 32, now greater than 600 after getting dextrose
- Hold all diabetic medications
- D10 drip being started for recurrent hypoglycemia
- Hold Jardiance
- Accu-Cheks every hour
# Acute kidney injury
- Anion 4.1
- Monitor with IV fluids
-Monitor I's and O's,
-Patient was fully
- Cha catheter
# Transaminitis secondary to shock liver
- Continue to monitor
History of V-fib cardiac arrest status post ICD
- On amiodarone drip
CAD status post CABG
- Continue rectal aspirin
-Hold statin
- Hold Plavix
Chronic HFrEF
- Hold Lasix
Diabetic neuropathy
- Hold gabapentin
Severe tricuspid regurgitation
PAD
Left heel ulcer nonhealing wound
Normocytic anemia
- Hemoglobin 8.3 from 10.1
Systemic lupus erythematosus
- Hold
Essential hypertension
- Hold metoprolol
GERD
- Protonix 40 IV daily
Anxiety/depression
- Hold citalopram, clonazepam
Full code
DVT prophylaxis�heparin
N.p.o.
[2025-04-17 16:06] LABS: Glucose - Point of Care 66 mg/dl (70-99)
--- NOTE | 2025-04-17 16:19 | CON.INTV ---
Consultation
Consultation Request
Date/Time Consultation Requested: 14:35 04/17/25
Date/Time Consultation Performed: 14:35 04/17/25
Medical History
-
History of Present Illness:
64yoF PMH severe ischemic cardiomyopathy s/p CABG in August, CKD, IDDM presenting with low BG and arrest Vtach on arrival to ED. Coded for 20min until ROSC.
Pt has extensive cardiac history followed here and at [facility]. Pt was admitted last month for CHF exacerbation. Family reports lack of appetite and lethargy over the last few days.
Past Medical History
Past Medical History: CAD, CHF, GERD, HTN and IDDM
Allergies / Home Medications
Allergies
Allergy/AdvReac Type Severity Reaction Status Date / Time
aspirin Allergy Anaphylaxis Verified 04/17/25 14:05
/rash
Home Medications
�Medication �Instructions �Recorded �Confirmed �Last Taken �Type
amiodarone 200 mg tablet 200 mg PO QPM Arrhythmia 01/20/25 04/17/25 04/16/25 History
atorvastatin 40 mg tablet 40 mg PO DAILY High Cholesterol 01/20/25 04/17/25 04/16/25 History
clopidogrel 75 mg tablet 75 mg PO QPM Blood Clot 01/20/25 04/17/25 04/16/25 History
Prevention/Tx
insulin aspart U-100 100 unit/mL 7 sliding scale dose SC AC Diabetes 02/13/25 04/17/25 04/16/25 History
subcutaneous solution
hydroxychloroquine 200 mg tablet 200 mg PO BID Lupus 02/20/25 04/17/25 04/16/25 History
citalopram 20 mg tablet 20 mg PO DAILY Mental 03/02/25 04/17/25 04/16/25 Rx
Health/Anxiety #0 tabs
furosemide 80 mg tablet 80 mg PO DAILY #30 tabs 03/02/25 04/17/25 04/16/25 Rx
metoprolol succinate 25 mg 25 mg PO DAILY #30 tabs 03/02/25 04/17/25 04/16/25 Rx
tablet,extended release 24 hr
pantoprazole 40 mg tablet,delayed 40 mg PO DAILY #30 tabs 03/02/25 04/17/25 04/16/25 Rx
release
empagliflozin 10 mg tablet 10 mg PO DAILY 03/06/25 04/17/25 Unknown History
(Jardiance)
insulin glargine 100 unit/mL 7 unit (0.07 mL) SC HS Diabetes #0 03/09/25 04/17/25 04/16/25 Rx
subcutaneous solution (Lantus mL
U-100 Insulin)
clonazepam 1 mg tablet 1 mg PO BID 04/17/25 04/17/25 04/16/25 History
gabapentin 400 mg capsule 400 mg PO TIDPRN PRN mild pain 04/17/25 04/17/25 Unknown History
Review of Systems
-
Unable to Obtain full review of systems at this time due to: Patient Intubation
Vitals / Labs / Diagnostic Testing
Vital Signs
Temp Pulse Resp BP Pulse Ox
97.7 F 62 27 64/40 9
04/17/25 13:35 04/17/25 16:15 04/17/25 16:15 04/17/25 16:15 04/17/25 16:10
Lab Data
04/17/25 13:31
04/17/25 13:31
Laboratory Results
04/17/25 04/17/25
14:15 14:28
pH 7.08 L* Cancelled
pCO2 38 H Cancelled
pO2 175 H Cancelled
HCO3 11.3 L* Cancelled
O2 Delivery Level Not Reportable Cancelled
Microbiology
04/17/25 14:44 Nasal Swab Influenza Types A & B (GERMAINE) - Final
Negative for Influenza A & B, NAAT
Negative results must be combined with clinical observations
and patient history.
Nucleic Acid Amplification test (NAAT)performed on the
[employer] platform.
Diagnostic Testing:
Physical Exam
-
HEENT: Normocephalic
Cardiovascular: Irregular Rhythm, Peripheral Edema (2+ pitting edema) and Carotid Pulses
Respiratory: Other (intubated on ventilator)
GI: Soft
Neurology: Other (sedated on ventilator. Presented to ED with AMS.)
Exam:
Pt is ill appearing laying in bed with eyes open.
Assessment
-
64yoF PMH severe ischemic cardiomyopathy s/p CABG, IDDM, and CKD presenting with AMS s/p cardiac arrest and ROSC.
Differential causing cardiac arrest includes but is not limited to hypoglycemia in setting of liver failure, severe ischemic cardiomyopathy exacerbation, aspiration event. No evidence of PE on CT but concern of RLL infiltrate. Pt is in acute liver
and kidney failure . Electrolytes are stable. Lactic acid 6.1.
Family discussion with daughter involved, the designated decision maker. We discussed prognosis. Family wants to continue with all measures and full code. Pt arrested once more in the ICU. ROSC achieved.
#Mixed respiratory and metabolic acidosis
#Cardiac arrest s/p code with ROSC
#Hypotension
- Amiodarone drip
- Bicarb drip
- Hyperventilate
- Currently on 3 pressors. Continue pressors as needed.
- POCUS demonstrated no cardiac tamponade. CT demonstrated no concern for pericardial effusion.
#RLL pulmonary infiltrate on CT
- Broad spectrum antibiotics for possible pneumonia
#IDDM
- D10 drip.
Code status: Full code
[2025-04-17] MEDS: DEXTROSE 50% SYRINGE 12.5 GRAMS IV (16:35)
--- NOTE | 2025-04-17 16:38 | EDRN ---
Addendum entered by Esther Cassidy RN 04/17/25 16:40:
Done at 16:26
Original Note:
Pt to ICU w/ PRINTING ROLLER HANDLER who will care for pt and respiratory therapist and Leighann ED RN at this time. Prior to leaving Fentanyl drip was discontinued as pt neurologically unresponsive per PRINTING ROLLER HANDLER.
--- NOTE | 2025-04-17 16:47 | W.PN.ANESINT ---
Anesthesia Intubation Note
- Intubation Note
Intubation Note:
Diagnosis:
Blade:
Tube Size:
Depth:
Side Taped:
Drugs Used:
Grade View:
EtCO2 Present:
Atraumatic:
Attempts:
Insertion Start and Stop Time:
SaO2 Pre:
SaO2 Post:
Glidescope Used:
Other Airway Adjustments:
Pre-Oxygenated:
Portable Chest X-Ray:
RSI:
Suctioned:
Bilateral Breath Sounds Confirmed:
Vent Settings:
Settings per ___Attending Physician
Called to pt's room approx 1635 for code. Upon arrival ACLS in progress. ETT in situ with RT manually ventilating patient. ETCO2 sustained in low 20's on digital capnometer.
--- NOTE | 2025-04-17 16:55 | W.PN.UPDATE ---
Update Note
Progress Note Update
Patient transferred to ICU and had another PEA arrest. CPR started and epi given. Patient regained pulse and now on epi gtt in addition to Levophed, vasopressin and Ovidio-Synephrine gtt. family updated by me, I talked with her daughter, her 2 sons,
her sisters and a niece. We reviewed events from the ER and the most recent code. Patient's family reports the patient would want everything done and they are asking for full code and aggressive care. 33 minutes critical care
[2025-04-17] MEDS: SODIUM BICARBONATE 1150 MEQ IV (17:09)
[2025-04-17] MEDS: VANCOCIN 540 MG IV (17:25)
--- NOTE | 2025-04-17 17:58 | W.PN.UPDATE ---
Update Note
Progress Note Update
Patient arrived to ICU on 3 pressors hypotensive, within minutes of arriving in ICU patient developed cardiac arrest again. No pulse was palpable. She had a PEA rhythm. CPR was immediately started. Patient was given epinephrine, bicarb push and
was coded for about 6-minute following which ROSC was achieved. During this time in addition to 3 pressors and epinephrine infusion was also started. Patient off sedation, no reflexes currently is essentially unresponsive. An attempt was made to
place an arterial line however guidewire kept meeting resistance in the right femoral artery as well as right axillary artery. Patient already has cyanotic purple bilateral hands and feet and radial pulses are extremely feeble and not amenable to
cannulation. Hence attempt was not made to place radial arterial line. Patient is currently hypothermic, maxed out on 4 pressors along with bicarb infusion and blood pressure ranging between 60 systolic to 80 systolic occasionally. Extremely poor
prognosis. Patient unlikely to survive this hospital stay. I updated the family regarding extremely poor prognosis currently and likely futility of care.
Additional critical care time spent 70 minutes.
--- NOTE | 2025-04-17 18:21 | W.PN.UPDATE ---
Addendum entered and electronically signed by Aneesh Green MD 04/17/25 18:42:
update:
Met with family at bedside. Updated regarding patient's current clinical condition and very high likelihood of another episode of cardiac arrest. After much deliberation, family has decided to continue current medical care but not to pursue CPR in
the event that patient develops another cardiac arrest. CODE STATUS changed to DNR.
Original Note:
Update Note
Progress Note Update
Patient developed a third episode of cardiac arrest in the critical care unit. Patient was already receiving 4 pressors including norepinephrine, epinephrine, phenylephrine as well as vasopressin in addition to D10 and bicarb infusion. Additional
bicarb was pushed along with epinephrine and CPR was started. After 7 minutes feeble pulse was detected throughout patient was in PEA. Once ROSC achieved I updated the family again. Cardiology service was also at bedside. Explained to the family
patient is on maximum pressor support at this point and continues to have recurrent cardiac arrest. At this point likely additional care is going to be futile. Patient at very high risk of cardiac arrest. Echocardiogram bedside suggestive of EF
around 10%. We briefly discussed the option of pursuing more comfort focused care.
Additional 42 minutes of critical care time spent
--- NOTE | 2025-04-17 18:45 | W.PN.UPDATE ---
Addendum entered and electronically signed by ANDRES Moreno 04/17/25 19:45:
Database Operator called for reportable less than 24 hours of hospital admission, declined jurisdiction per Myah Butler.
Original Note:
Update Note
Progress Note Update
Code status updated to DNR- no cpr, no ACLS medications, no defibrillation; continue current interventions intubation, vasopressors, but no escalation of care. Discussion with RN and daughter at bedside. Orders updated to DNR.
--- NOTE | 2025-04-17 19:08 | PTCARENOTE ---
Went to ED to chicken picker unstable pt for transfer to ICU with resp therapist. Pt was hypotensive 60/40s on levo/jose carlos and vasopressin. Pt was unresponsive, but with weak pulse prior to transfer. Upon arrival to ICU, pt transferred to ICU bed and
shortly after, pea arrest. Code called, amio drip discontinued per Dr Green and Dr Harris who was at bedside. Epi drip added during code. Bicarb gtt also added. Pt unresponsive without corneals when care assumed in ED. Fentanyl drip stopped
in ED prior to transfer to floor. Pt was never responsive t/o care while in unit. Family updated multiple times by physicians who made decision not to perform further cpr. Pt with family at bedside.
--- NOTE | 2025-04-17 19:11 | W.PN.DEATH ---
Pronouncement of
-
Called to see patient to pronounce.
No spontaneous heart tones or respirations noted.
Patient not responsive to verbal stimuli.
Patient is pronounced .
Time of : 18:51
Date of : 04/17/25
Cause of : cardiogenic shock, cardiopulmonary arrest
Family Notified: Yes (family at bedside at time of )
--- NOTE | 2025-04-17 19:16 | PTCARENOTE ---
Went to ED to hand picker unstable pt for transfer to ICU with resp therapist. Pt was hypotensive 60/40s on levo/jose carlos and vasopressin. Pt was unresponsive, but with weak pulse prior to transfer. Upon arrival to ICU, pt transferred to ICU bed and
shortly after, pea arrest. Code called, amio drip discontinued per Dr Green and Dr Harris who was at bedside. Epi drip added during code. Bicarb gtt also added. Pt unresponsive without corneals when care assumed in ED. Fentanyl drip stopped
in ED prior to transfer to floor. Pt was never responsive t/o care while in unit. Pt coded again and pulses returned after epi/bicarb. Family updated multiple times by physicians who made decision not to perform further cpr. Pt with
family at bedside. Checker Stocker called and forest engineer coming.
--- NOTE | 2025-04-17 22:00 | PTCARENOTE ---
WAYNE notified, post mortem care performed, pt transferred to [facility] [place].
--- NOTE | 2025-04-18 09:43 | CM ---
Patient on 04/17/25 @ 1856.
== END 2025-04-17 18:51 | disposition expired | DRG 292 ==
LOC: ICU 16:10
PROVIDERS: ADMITTING PHYSICIAN Hospitalist; CONSULT PHYSICIAN Internal Medicine; CONSULT PHYSICIAN Internal Medicine Cardiovascular Disease; EMERGENCY PHYSICIAN Emergency Medicine; FAMILY PHYSICIAN Internal Medicine
DX: I13.0 Hypertensive heart and chronic kidney disease with heart failure and stage 1 through stage 4 chronic kidney disease, or unspecified chronic kidney disease (principal); E87.4 Mixed disorder of acid-base balance; I50.22 Chronic systolic (congestive) heart failure; N18.4 Chronic kidney disease, stage 4 (severe); L97.429 Non-pressure chronic ulcer of left heel and midfoot with unspecified severity; N17.9 Acute kidney failure, unspecified; I47.20 Ventricular tachycardia, unspecified; I46.2 Cardiac arrest due to underlying cardiac condition; R57.0 Cardiogenic shock; Z95.810 Presence of automatic (implantable) cardiac defibrillator; E78.00 Pure hypercholesterolemia, unspecified; D64.9 Anemia, unspecified; Z95.1 Presence of aortocoronary bypass graft; I25.10 Atherosclerotic heart disease of native coronary artery without angina pectoris; M32.9 Systemic lupus erythematosus, unspecified; K21.9 Gastro-esophageal reflux disease without esophagitis; F41.9 Anxiety disorder, unspecified; F32.A Depression, unspecified; G89.29 Other chronic pain; E11.40 Type 2 diabetes mellitus with diabetic neuropathy, unspecified; Z79.4 Long term (current) use of insulin; Z87.892 Personal history of anaphylaxis; Z88.6 Allergy status to analgesic agent; Z79.02 Long term (current) use of antithrombotics/antiplatelets; Z79.84 Long term (current) use of oral hypoglycemic drugs; Z79.899 Other long term (current) drug therapy; Z66 Do not resuscitate; D69.6 Thrombocytopenia, unspecified; E11.22 Type 2 diabetes mellitus with diabetic chronic kidney disease; E11.621 Type 2 diabetes mellitus with foot ulcer; I25.2 Old myocardial infarction; I25.5 Ischemic cardiomyopathy; I44.7 Left bundle-branch block, unspecified; R62.7 Adult failure to thrive; Z11.52 Encounter for screening for COVID-19
CPT/HCPCS: 31500; 36556; 43752; 51702; 70450; 71045; 71275; 74177; 80053; 81003; 81015; 82533; 82805; 82962; 83605; 83880; 84443; 85025; 87040; 87086; 87502; 87811; 93005; 93308; 93321; 93325; 94002; 96365; 96366; 96367; 96375; 96376; 99291; Q9967